=== PATIENT | female | born 1960 ===

== ENCOUNTER 2020-02-24 09:41 | Outpatient (REF) | payer OTHER, SELFPAY ==
[2020-02-24 10:14] LABS: MANUAL DIFF FLAG NO
[2020-02-24 10:25] LABS: Basophils Percent Auto 0.5 % (0-2); Eosinophils Absolute Auto 0.3 X10*3/uL (0.0-0.4); Eosinophils Percent Auto 3.8 % (0-4); Hematocrit 35.4 % (37-47); Hemoglobin 10.7 g/dl (12.0-16.0); Imm Gran Abs Auto 0.02 X10*3/uL (0.00-0.03); Imm Gran Pct Auto 0.2 % (0.0-0.4); Lymphocytes Absolute Auto 3.2 X10*3/uL (1.2-4.9); Lymphocytes Percent Auto 36.7 % (20-40); Mean Corpuscular HGB Conc 30.2 g/dl (31.0-35.0); Mean Corpuscular Hemoglobin 29.4 pg (27.0-33.0); Mean Corpuscular Volume 97.3 fL (80-98); Monocytes Absolute Auto 0.8 X10*3/uL (0.1-1.2); Monocytes Percent Auto 8.7 % (2-11); Neutrophils Absolute Auto 4.4 X10*3/uL (2.0-8.3); Neutrophils Percent Auto 50.1 % (45-73); Platelet Count 203 X10*3/uL (160-400); Red Blood Count 3.64 X10*6/uL (4.20-5.50); Red Cell Distribution Width 13.8 % (11.0-16.0); White Blood Count 8.7 X10*3/uL (4.8-10.8)
[2020-02-24 10:51] LABS: Anion Gap 12 (12-20); Blood Urea Nitrogen 22 mg/dL (9-16); Carbon Dioxide 28 mmol/L (22-29); Chloride 101 mmol/L (96-108); Estimated Glomerular Filt Rate 37; Sodium 136 mmol/L (135-145)
== END 2020-02-24 09:42 | disposition home or self-care (01) ==
LOC: HO.LAB 09:41
PROVIDERS: PCP Internal Medicine; Visit Provider Internal Medicine Hypertension Specialist
DX: N95.0 Postmenopausal bleeding (principal); Z01.419 Encounter for gynecological examination (general) (routine) without abnormal findings
CPT/HCPCS: 36415; 80051; 82565; 84520; 85025; 88305

== ENCOUNTER → 2020-03-24 13:26 | Outpatient (BNVA) | payer OTHER, SELFPAY | PROVIDERS: Referring Provider Internal Medicine; Visit Provider Internal Medicine Cardiovascular Disease | DX: I25.10 Atherosclerotic heart disease of native coronary artery without angina pectoris (principal); I50.9 Heart failure, unspecified; Z79.82 Long term (current) use of aspirin; Z79.899 Other long term (current) drug therapy | CPT/HCPCS: 93005; 99212 ==

== ENCOUNTER → 2020-04-08 14:05 | Outpatient (BNVA) | payer OTHER, SELFPAY | PROVIDERS: PCP Internal Medicine; Visit Provider Obstetrics & Gynecology | DX: Z76.89 Persons encountering health services in other specified circumstances (principal) ==

== ENCOUNTER 2020-06-06 08:52 | Emergency (ER) | payer OTHER, SELFPAY ==
--- NOTE | ~2020-06-06 | CT_ITS ---
EXAMINATION: CT ANGIOGRAM OF THE CHEST WITH AND WITHOUT CONTRAST (CT PULMONARY ANGIOGRAM FOR PE) CLINICAL INFORMATION: Reason for Exam CP/ elevated ddimer COMPARISON: Chest radiograph 06/06/2020 CT angiogram of the chest 12/30/2015 TECHNIQUE: Prior to contrast administration, noncontrast localization images were obtained. Subsequently, multidetector volumetric imaging was performed from the thoracic inlet to below the diaphragms following the administration of 65 mL Omnipaque 350 intravenous contrast. No contrast reaction reported Sagittal, coronal, and MIP oblique sagittal reformatted images were obtained on the CT workstation, uploaded to PACS, and reviewed. This CT examination was performed using dose optimization techniques as appropriate, variously including the following: *Automated exposure control *Adjustment of mA and/or kV according to patient size (this includes techniques or standardized protocols for targeted exams where dose is matched to indication/reason for exam; i.e. extremities or head) *Use of iterative reconstruction technique Total exam dose-length product 363 mGy-cm FINDINGS: QUALITY OF STUDY/CONTRAST BOLUS: Satisfactory. PULMONARY ARTERIES: No central or segmental pulmonary emboli. THORACIC AORTA: No aneurysm or dissection. LUNG: No focal consolidation, nodules or masses. Hazy central groundglass opacity, with sparing in the bilateral lower lobes. There is a small cyst in the peripheral left lower lobe and in the left upper lobe. PLEURA: No pleural effusion or pneumothorax. MEDIASTINUM: Normal heart size. No pericardial effusion. No hilar or mediastinal lymphadenopathy. No evidence of septal bowing or right heart strain. Postsurgical changes from CABG normal caliber of the thoracic aorta. Scattered atherosclerotic calcifications. CHEST WALL/AXILLA: No axillary or internal mammary lymphadenopathy. OSSEOUS STRUCTURES: No acute or suspicious osseous abnormality. UPPER ABDOMEN: Small calcified gallstone. No pericholecystic fluid or gallbladder wall thickening. There are atherosclerotic calcifications of the splenic artery and upper abdominal aorta. No reflux of contrast into the hepatic veins to suggest elevated right heart pressures. CT/CT angio chest PE protocol IMPRESSION: No evidence of pulmonary embolism. Hazy central diffuse groundglass opacity in both lungs, that may represent mild pulmonary edema. VTE: negative
--- NOTE | ~2020-06-06 | XR_ITS ---
EXAMINATION: XR CHEST CLINICAL INFORMATION: Shortness of breath. COMPARISON: 10/26/2019 portable chest. TECHNIQUE: Frontal view of the chest was obtained. FINDINGS: The lungs are clear. Small nodules overlying the right midlung are unchanged. The heart and mediastinal structures are unremarkable. Coarsely calcified nodules overlie the right hilum without interval change. Multilevel sternotomy wires are intact. XR/XR chest 1V IMPRESSION: Stable chest. No acute cardiopulmonary process. Calcified nodules consistent with old granulomatous disease without interval change.
[2020-06-06 08:54] VITALS: BP 204/88; PULSE 66; RESP 20; TEMP 36.6; O2SAT 100; BMI 38.2
--- NOTE | 2020-06-06 08:59 | ED.SOB ---
HPI - SOB/Dyspnea General Chief Complaint: Dyspnea Stated Complaint: DIFF BREATHING Time Seen by Provider: 06/06/20 08:59 Source: patient Mode of arrival: wheelchair Limitations: language barrier (Primarily Afghan-speaking family and sports media used for all interactions) History of Present Illness HPI Narrative: In review this is a 59-year-old female primarily Afghan-speaking the sports media present upon arrival she has a history of arthritis, asthma, coronary artery disease status post coronary angioplasty with stents, chronic kidney disease, congestive heart failure, diabetes, hypercholesteremia, hypertension, obstructive sleep apnea presenting with complaint of ?fluid in the lungs? States she has some shortness of breath which is not new for her however her lower extremity seems to be swelling at night and family did report some complaint of shortness of breath which is denies to me. MD elicited complaint: shortness of breath Timing: intermittent Severity: mild Associated symptoms: denies other symptoms Treatment prior to arrival: none Related Data Home Medications Medication Instructions Recorded Confirmed allopurinol 300 mg tablet 300 mg PO DAILY 02/24/20 04/28/20 amlodipine 10 mg tablet 10 mg PO DAILY 02/24/20 04/28/20 ascorbic acid (vitamin C) 500 mg 500 mg PO DAILY 02/24/20 04/28/20 capsule ascorbic acid (vitamin C) 500 mg PO 02/24/20 04/28/20 tablet blood sugar diagnostic #10 ea 02/24/20 04/28/20 ferrous sulfate 325 mg (65 mg mg PO 02/24/20 04/28/20 iron) tablet insulin regular hum U-500 conc 500 unit SUBCUT 02/24/20 04/28/20 unit/mL subcutaneous soln lisinopril 5 mg tablet 5 mg PO DAILY 02/24/20 04/28/20 rosuvastatin 40 mg tablet 40 mg PO DAILY 02/24/20 04/28/20 spironolactone 25 mg tablet 25 mg PO DAILY 02/24/20 04/28/20 cholecalciferol (vitamin D3) 50 50 mcg PO DAILY 03/24/20 04/28/20 mcg (2,000 unit) capsule metoprolol tartrate 25 mg tablet 25 mg PO BID tab 03/24/20 04/28/20 Previous Rx's Medication Instructions Recorded clopidogrel 75 mg tablet 75 mg PO DAILY #30 tab 02/18/20 compr.stocking,knee,long,large #12 ea 03/25/20 aspirin 81 mg tablet,delayed 81 mg PO DAILY #30 tab 04/09/20 release sennosides 8.6 mg tablet 17.2 mg PO BEDTIME PRN 30 Days #60 04/16/20 tab tobramycin 0.3 % eye drops 1 drp OPHTHALMIC (EYE) Q4H 7 Days 04/28/20 #5 ml amitriptyline 10 mg tablet 10 mg PO BEDTIME #30 tab 05/27/20 furosemide [Lasix] 10 mg PO QAM #7 tab 06/06/20 Allergies Allergy/AdvReac Type Severity Reaction Status Date / Time liraglutide [From VICTOZA] Allergy Mild VOMITING RUBI Verified 04/28/20 12:36 amlodipine Allergy Unknown leg edema Verified 04/28/20 12:36 LACTOSE INTOLERANCE Allergy Mild UPSET Uncoded 04/28/20 12:36 STOMACH milk, lactose Allergy Unknown vomitting Uncoded 04/28/20 12:36 Review of Systems Review of Systems: Constitutional: No Weight loss, No Fever, No Chills, No Night Sweats, No Fatigue, No Malaise ENT/Mouth: No Hearing loss, No Ear Pain, No Nasal Congestion, No Sinus Pain, No Hoarseness, No sore throat, No Rhinorrhea, No Swallowing Difficulty Eyes: No Eye Pain, No Swelling, No Redness, No Foreign Body, No Discharge, No Vision Changes Cardiovascular: No Chest Pain, No Dyspnea on Exertion, No Orthopnea, + Edema, No Palpitations Respiratory: No Cough, No Sputum, No Wheezing, No Smoke Exposure, No Dyspnea Gastrointestinal: No Nausea, No Vomiting, No Diarrhea, No Constipation, No abdominal Pain, No Hematochezia, No Melena Genitourinary: no irregular bleeding, No Dysuria, No Urinary Frequency, No Hematuria, No Urinary Incontinence, No Urgency, No Flank Pain Musculoskeletal: No joint pain, No Myalgias, No Joint Swelling Skin: No Skin Lesions, No rash Neuro: No Weakness, No Numbness, No Paresthesias, No Loss of Consciousness, No Dizziness, No Headache Psych: No Social Issues Heme/Lymph: No Bruising, No Bleeding,No Lymphadenopathy Endocrine: No Polyuria, No Polydipsia, No Temperature Intolerance Yes all other systems are reviewed and are negative FOR[facility]LY [facility] Past Medical History Medical History (Updated 06/06/20 @ 16:02 by Robert Voss NP) Arthritis Asthma CAD (coronary artery disease) CKD (chronic kidney disease) Congestive heart failure Diabetes Gout Hypercholesteremia Hypertension BRYNN (obstructive sleep apnea) Sinusitis Stroke Surgical History H/O right breast biopsy History of bilateral tubal ligation History of cataract surgery History of coronary angioplasty with insertion of stent History of heart surgery Family History Family History Father Stroke Mother Myocardial infarction Paternal Uncle Cancer Social History Social History Alcohol intake: never Smoking Status: Unknown if ever smoked Use of substances other than those prescribed or required for medical reasons: No Advance Directives: No Advance Directives Information Provided: No Sexual orientation: Straight/Heterosexual Gender identity: female Physical Exam Vital Signs: Vital Signs: Last Vital Signs Temp 97.9 F 06/06/20 14:59 Pulse 62 06/06/20 14:59 Resp 16 06/06/20 14:59 BP 147/51 H 06/06/20 14:59 Pulse Ox 98 06/06/20 14:59 Body Mass Index 38.2 Reviewed Const: General: cooperative and healthy appearing; No acute distress or intoxicated appearing Nutritional Appearance: average body habitus Orientation/consciousness: patient oriented x3 HENMT: Head: Yes normal to inspection Ears: hearing grossly normal bilaterally Eyes: General: appearance normal, both eyes and all related structures Visual Reis: normal visual reis by confrontation Neck: Neck: Yes normal visual inspection, No positive Brudzinski's sign, No positive Kernig's sign and No tender Thyroid: Thyroid normal Chest: Chest palpation & inspection: normal inspection of the chest Resp: Effort & Inspection: normal respiratory effort Auscultation: clear to auscultation bilaterally Cardio: Jugular venous distension: no JVD Rhythm: regular rhythm Heart sounds: S1 normal heart sound present and S2 normal heart sound present GI: Inspection: Yes normal to inspection Percussion: Yes normal to percussion Auscultation: normal bowel sounds : General: Yes no CVA tenderness Back/Spine/Pelvis: Back: no CVA tenderness Skin: General skin exam: no rashes or lesions noted Neuro: General: patient oriented x3 Extrem: General: Yes normal to inspection Right lower extremity: edema Details: 1+ Left lower extremity: edema Details: 1+ MDM - SOB/Dyspnea MDM Narrative Medical decision making narrative: Hemodynamically stable, CTA negative for acute PE. No shortness of breath on exertion will give her short course Lasix with close outpatient follow-up for recheck and repeat labs. Would like to go home. Stable for discharge. Differential Diagnosis Differential diagnosis: Likely congestive heart failure and asthma with exacerbation; Unlikely acute exacerbation of chronic obstructive airways disease, pneumonia, pulmonary embolism, pleural effusion, sleep apnea and anemia Medical Records Attestation: I reviewed the patient's medical records. Lab Data Attestation: I reviewed the patient's lab results. Result diagrams: 06/06/20 09:50 06/06/20 09:21 Labs: Lab Results 06/06/20 06/06/20 06/06/20 Range/Units 09:21 09:21 09:21 WBC (4.8-10.8) X10*3/uL RBC (4.20-5.50) X10*6/uL Hgb (12.0-16.0) g/dl Hct (37-47) % MCV (80-98) fL MCH (27.0-33.0) pg MCHC (31.0-35.0) g/dl RDW (11.0-16.0) % Plt Count (160-400) X10*3/uL MPV (9.4-12.3) fL Immature Gran % (Auto) (0.0-0.4) % Neut % (Auto) (45-73) % Lymph % (Auto) (20-40) % Avery % (Auto) (2-11) % Eos % (Auto) (0-4) % Baso % (Auto) (0-2) % Lymph # (Auto) (1.2-4.9) X10*3/uL Avery # (Auto) (0.1-1.2) X10*3/uL Eos # (Auto) (0.0-0.4) X10*3/uL Baso # (Auto) (0.0-0.2) X10*3/uL Abs Immat Gran (auto) (0.00-0.03) X10*3/uL Absolute Neuts (auto) (2.0-8.3) X10*3/uL Absolute Nucleated RBC (0.0-0.012) X10*3/uL Nucleated RBC % (auto) (0.0-0.2) /100WBC PT (10.8-13.0) SEC INR (0.9-1.1) APTT (24.1-38.0) SEC D-Dimer NG/ML Sodium 136 (135-145) mmol/L Potassium 5.1 (3.3-5.1) mmol/L Chloride 101 (96-108) mmol/L Carbon Dioxide 26 (22-29) mmol/L Anion Gap 14 (12-20) BUN 19 H (9-16) mg/dL Creatinine 1.25 (0.5-1.4) mg/dL Estim Creat Clear Calc 52.6 Estimated GFR 44 Random Glucose 178 H (60-115) mg/dL Lactic Acid (0.5-2.0) mmol/L Calcium 9.3 (8.4-10.2) mg/dL Ferritin 317 H (10-250) ng/mL Total Bilirubin 0.2 (0.0-1.0) mg/dL AST 23 (5-31) U/L ALT 25 (0-31) U/L Alkaline Phosphatase 67 (39-117) U/L Lactate Dehydrogenase 181 (122-220) U/L Troponin I High Sens (<3.5-17.0) ng/L C-Reactive Protein 0.58 H (< or = 0.50) mg/dL B-Natriuretic Peptide (<100) pg/mL Total Protein 7.1 (6.5-8.0) g/dL Albumin 3.5 (3.5-5.0) g/dL Procalcitonin ng/mL Urine Color Urine Appearance Urine pH (5.0-8.0) Ur Specific [place] (1.005-1.025) Urine Protein (NEG-TRACE) MG/DL Urine Glucose (UA) (NEG) MG/DL Urine Ketones (NEG) MG/DL Urine Blood (NEG) Urine Nitrite (NEG) Ur Leukocyte Esterase (NEG) Urine RBC (0) /HPF Urine WBC (0-4) /HPF Ur Squamous Epith Cells /LPF Urine Bacteria /LPF Urine Mucus /LPF Coronavirus (PCR) NEGATIVE (Negative) Influenza Type A (PCR) NEGATIVE (Negative) Influenza Type B (PCR) NEGATIVE (Negative) RSV RNA Qual (PCR) NEGATIVE (Negative) 06/06/20 06/06/20 06/06/20 Range/Units 09:22 09:50 09:50 WBC 7.0 (4.8-10.8) X10*3/uL RBC 4.30 (4.20-5.50) X10*6/uL Hgb 13.0 D (12.0-16.0) g/dl Hct 40.4 (37-47) % MCV 94.0 (80-98) fL MCH 30.2 (27.0-33.0) pg MCHC 32.2 (31.0-35.0) g/dl RDW 13.5 (11.0-16.0) % Plt Count 221 (160-400) X10*3/uL MPV 11.4 (9.4-12.3) fL Immature Gran % (Auto) 0.3 (0.0-0.4) % Neut % (Auto) 50.3 (45-73) % Lymph % (Auto) 34.9 (20-40) % Avery % (Auto) 10.0 (2-11) % Eos % (Auto) 3.9 (0-4) % Baso % (Auto) 0.6 (0-2) % Lymph # (Auto) 2.4 (1.2-4.9) X10*3/uL Avery # (Auto) 0.7 (0.1-1.2) X10*3/uL Eos # (Auto) 0.3 (0.0-0.4) X10*3/uL Baso # (Auto) 0.0 (0.0-0.2) X10*3/uL Abs Immat Gran (auto) 0.02 (0.00-0.03) X10*3/uL Absolute Neuts (auto) 3.5 (2.0-8.3) X10*3/uL Absolute Nucleated RBC 0.000 (0.0-0.012) X10*3/uL Nucleated RBC % (auto) 0.0 (0.0-0.2) /100WBC PT (10.8-13.0) SEC INR (0.9-1.1) APTT (24.1-38.0) SEC D-Dimer NG/ML Sodium (135-145) mmol/L Potassium (3.3-5.1) mmol/L Chloride (96-108) mmol/L Carbon Dioxide (22-29) mmol/L Anion Gap (12-20) BUN (9-16) mg/dL Creatinine (0.5-1.4) mg/dL Estim Creat Clear Calc Estimated GFR Random Glucose (60-115) mg/dL Lactic Acid 1.8 (0.5-2.0) mmol/L Calcium (8.4-10.2) mg/dL Ferritin (10-250) ng/mL Total Bilirubin (0.0-1.0) mg/dL AST (5-31) U/L ALT (0-31) U/L Alkaline Phosphatase (39-117) U/L Lactate Dehydrogenase (122-220) U/L Troponin I High Sens 10.8 (<3.5-17.0) ng/L C-Reactive Protein (< or = 0.50) mg/dL B-Natriuretic Peptide 190 H (<100) pg/mL Total Protein (6.5-8.0) g/dL Albumin (3.5-5.0) g/dL Procalcitonin ng/mL Urine Color Urine Appearance Urine pH (5.0-8.0) Ur Specific [place] (1.005-1.025) Urine Protein (NEG-TRACE) MG/DL Urine Glucose (UA) (NEG) MG/DL Urine Ketones (NEG) MG/DL Urine Blood (NEG) Urine Nitrite (NEG) Ur Leukocyte Esterase (NEG) Urine RBC (0) /HPF Urine WBC (0-4) /HPF Ur Squamous Epith Cells /LPF Urine Bacteria /LPF Urine Mucus /LPF Coronavirus (PCR) (Negative) Influenza Type A (PCR) (Negative) Influenza Type B (PCR) (Negative) RSV RNA Qual (PCR) (Negative) 06/06/20 06/06/20 06/06/20 Range/Units 09:50 10:18 12:09 WBC (4.8-10.8) X10*3/uL RBC (4.20-5.50) X10*6/uL Hgb (12.0-16.0) g/dl Hct (37-47) % MCV (80-98) fL MCH (27.0-33.0) pg MCHC (31.0-35.0) g/dl RDW (11.0-16.0) % Plt Count (160-400) X10*3/uL MPV (9.4-12.3) fL Immature Gran % (Auto) (0.0-0.4) % Neut % (Auto) (45-73) % Lymph % (Auto) (20-40) % Avery % (Auto) (2-11) % Eos % (Auto) (0-4) % Baso % (Auto) (0-2) % Lymph # (Auto) (1.2-4.9) X10*3/uL Avery # (Auto) (0.1-1.2) X10*3/uL Eos # (Auto) (0.0-0.4) X10*3/uL Baso # (Auto) (0.0-0.2) X10*3/uL Abs Immat Gran (auto) (0.00-0.03) X10*3/uL Absolute Neuts (auto) (2.0-8.3) X10*3/uL Absolute Nucleated RBC (0.0-0.012) X10*3/uL Nucleated RBC % (auto) (0.0-0.2) /100WBC PT 12.1 (10.8-13.0) SEC INR 1.0 (0.9-1.1) APTT 30.3 (24.1-38.0) SEC D-Dimer 677 NG/ML Sodium (135-145) mmol/L Potassium (3.3-5.1) mmol/L Chloride (96-108) mmol/L Carbon Dioxide (22-29) mmol/L Anion Gap (12-20) BUN (9-16) mg/dL Creatinine (0.5-1.4) mg/dL Estim Creat Clear Calc Estimated GFR Random Glucose (60-115) mg/dL Lactic Acid (0.5-2.0) mmol/L Calcium (8.4-10.2) mg/dL Ferritin (10-250) ng/mL Total Bilirubin (0.0-1.0) mg/dL AST (5-31) U/L ALT (0-31) U/L Alkaline Phosphatase (39-117) U/L Lactate Dehydrogenase (122-220) U/L Troponin I High Sens (<3.5-17.0) ng/L C-Reactive Protein (< or = 0.50) mg/dL B-Natriuretic Peptide (<100) pg/mL Total Protein (6.5-8.0) g/dL Albumin (3.5-5.0) g/dL Procalcitonin 0.03 ng/mL Urine Color YELLOW Urine Appearance CLEAR Urine pH 7.0 (5.0-8.0) Ur Specific [place] 1.015 (1.005-1.025) Urine Protein 1+ H (NEG-TRACE) MG/DL Urine Glucose (UA) NEG (NEG) MG/DL Urine Ketones NEG (NEG) MG/DL Urine Blood NEG (NEG) Urine Nitrite NEG (NEG) Ur Leukocyte Esterase NEG (NEG) Urine RBC 5-9 H (0) /HPF Urine WBC 0-2 (0-4) /HPF Ur Squamous Epith Cells TRACE /LPF Urine Bacteria NONE /LPF Urine Mucus TRACE /LPF Coronavirus (PCR) (Negative) Influenza Type A (PCR) (Negative) Influenza Type B (PCR) (Negative) RSV RNA Qual (PCR) (Negative) 06/06/20 Range/Units 13:05 WBC (4.8-10.8) X10*3/uL RBC (4.20-5.50) X10*6/uL Hgb (12.0-16.0) g/dl Hct (37-47) % MCV (80-98) fL MCH (27.0-33.0) pg MCHC (31.0-35.0) g/dl RDW (11.0-16.0) % Plt Count (160-400) X10*3/uL MPV (9.4-12.3) fL Immature Gran % (Auto) (0.0-0.4) % Neut % (Auto) (45-73) % Lymph % (Auto) (20-40) % Avery % (Auto) (2-11) % Eos % (Auto) (0-4) % Baso % (Auto) (0-2) % Lymph # (Auto) (1.2-4.9) X10*3/uL Avery # (Auto) (0.1-1.2) X10*3/uL Eos # (Auto) (0.0-0.4) X10*3/uL Baso # (Auto) (0.0-0.2) X10*3/uL Abs Immat Gran (auto) (0.00-0.03) X10*3/uL Absolute Neuts (auto) (2.0-8.3) X10*3/uL Absolute Nucleated RBC (0.0-0.012) X10*3/uL Nucleated RBC % (auto) (0.0-0.2) /100WBC PT (10.8-13.0) SEC INR (0.9-1.1) APTT (24.1-38.0) SEC D-Dimer NG/ML Sodium (135-145) mmol/L Potassium (3.3-5.1) mmol/L Chloride (96-108) mmol/L Carbon Dioxide (22-29) mmol/L Anion Gap (12-20) BUN (9-16) mg/dL Creatinine (0.5-1.4) mg/dL Estim Creat Clear Calc Estimated GFR Random Glucose (60-115) mg/dL Lactic Acid (0.5-2.0) mmol/L Calcium (8.4-10.2) mg/dL Ferritin (10-250) ng/mL Total Bilirubin (0.0-1.0) mg/dL AST (5-31) U/L ALT (0-31) U/L Alkaline Phosphatase (39-117) U/L Lactate Dehydrogenase (122-220) U/L Troponin I High Sens 11.7 (<3.5-17.0) ng/L C-Reactive Protein (< or = 0.50) mg/dL B-Natriuretic Peptide (<100) pg/mL Total Protein (6.5-8.0) g/dL Albumin (3.5-5.0) g/dL Procalcitonin ng/mL Urine Color Urine Appearance Urine pH (5.0-8.0) Ur Specific [place] (1.005-1.025) Urine Protein (NEG-TRACE) MG/DL Urine Glucose (UA) (NEG) MG/DL Urine Ketones (NEG) MG/DL Urine Blood (NEG) Urine Nitrite (NEG) Ur Leukocyte Esterase (NEG) Urine RBC (0) /HPF Urine WBC (0-4) /HPF Ur Squamous Epith Cells /LPF Urine Bacteria /LPF Urine Mucus /LPF Coronavirus (PCR) (Negative) Influenza Type A (PCR) (Negative) Influenza Type B (PCR) (Negative) RSV RNA Qual (PCR) (Negative) Imaging Data Chest x-ray: Radiologist's impression: [address] [id number] ReportSigned Patient: Anna Mead LMR#: [id number]: [id number]:[id number]/Sex: 59 / FADM Date: 06/06/20Loc: EDAttending Dr: Ordering Physician: Robert Voss NP Date of Service: 06/06/20 Procedure(s): XR chest 1V Accession Number(s): [id number] cc: Robert Voss 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 COMPARISON: 10/26/2019 portable chest. TECHNIQUE: Frontal view of the chest was obtained. FINDINGS: The lungs are clear. Small nodules overlying the right midlung are unchanged. The heart and mediastinal structures are unremarkable. Coarsely calcified nodules overlie the right hilum without interval change. Multilevel sternotomy wires are intact. XR/XR chest 1V IMPRESSION: Stable chest. No acute cardiopulmonary process. Calcified nodules consistent with old granulomatous disease without interval change. 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 Thank you Prescriptions: New furosemide [Lasix] 20 mg tablet 10 mg PO QAM Qty: 7 RF: 0 No Action clopidogrel 75 mg tablet 75 mg PO DAILY Qty: 30 RF: 11 aspirin 81 mg tablet,delayed release (DR/EC) 81 mg PO DAILY Qty: 30 RF: 2 sennosides [Senna Laxative] 8.6 mg tablet 17.2 mg PO BEDTIME PRN (Reason: constipation) 30 Days Qty: 60 RF: 5 amitriptyline 10 mg tablet 10 mg PO BEDTIME Qty: 30 RF: 3 tobramycin 0.3 % drops 1 drp ophthalmic (eye) Q4H 7 Days Qty: 5 RF: 0 rosuvastatin 40 mg tablet 40 mg PO DAILY RF: 0 lisinopril 5 mg tablet 5 mg PO DAILY RF: 0 allopurinol 300 mg tablet 300 mg PO DAILY RF: 0 ferrous sulfate 325 mg (65 mg iron) tablet PO RF: 0 ascorbic acid (vitamin C) 500 mg tablet PO RF: 0 Humulin R U-500 (Conc) Insulin 500 unit/mL solution subcut RF: 0 spironolactone 25 mg tablet 25 mg PO DAILY RF: 0 (DME) FreeStyle Lite Strips Strip See Rx Instructions ea Not Applicable .MEDSUPPLY Qty: 10 RF: 0 ascorbic acid (vitamin C) 500 mg capsule 500 mg PO DAILY RF: 0 amlodipine 10 mg tablet 10 mg PO DAILY RF: 0 metoprolol tartrate 25 mg tablet 25 mg PO BID RF: 0 (DME) compr.stocking,knee,long,large Misc See Rx Instructions .ROUTE .MEDSUPPLY Qty: 12 RF: 0 cholecalciferol (vitamin D3) 50 mcg (2,000 unit) capsule 50 mcg PO DAILY RF: 0 Referrals: Shara Verdugo MD [Primary Care Provider] - 3 days Interventions: ED Discharge Assessment Last Done: 06/06/20 16:22 Discharge Date/Time: 06/06/20 16:23
--- NOTE | 2020-06-06 09:01 | ECG_ITS ---
Test Reason : DYSPENA Blood Pressure : / mmHG Vent. Rate : 062 BPM Atrial Rate : 062 BPM P-R Int : 184 ms QRS Dur : 130 ms QT Int : 448 ms P-R-T Axes : 043 -31 140 degrees QTc Int : 454 ms Normal sinus rhythm Left axis deviation Left bundle branch block Abnormal ECG When compared with ECG of 26-OCT-2019 17:58, Vent. rate has decreased BY 30 BPM Referred By: Robert Voss Electronically Signed By:EMERSON DANIELS
[2020-06-06 09:57] LABS: Lactic Acid 1.8 mmol/L (0.5-2.0)
[2020-06-06 09:59] LABS: MANUAL DIFF FLAG NO
[2020-06-06 10:01] LABS: Alanine Aminotransferase 25 U/L (0-31); Albumin Level 3.5 g/dL (3.5-5.0); Alkaline Phosphatase 67 U/L (39-117); Anion Gap 14 (12-20); Aspartate Amino Transferase 23 U/L (5-31); Bilirubin Total 0.2 mg/dL (0.0-1.0); Blood Urea Nitrogen 19 mg/dL (9-16); C Reactive Protein 0.58 mg/dL (< or = 0.50); Calcium 9.3 mg/dL (8.4-10.2); Carbon Dioxide 26 mmol/L (22-29); Chloride 101 mmol/L (96-108); Creatinine Clr Calc Pharmacy 52.6; Estimated Glomerular Filt Rate 44; Glucose Random 178 mg/dL (60-115); Lactate Dehydrogenase 181 U/L (122-220); Potassium 5.1 mmol/L (3.3-5.1); Sodium 136 mmol/L (135-145); Total Protein 7.1 g/dL (6.5-8.0)
[2020-06-06 10:02] LABS: Basophils Percent Auto 0.6 % (0-2); Eosinophils Absolute Auto 0.3 X10*3/uL (0.0-0.4); Eosinophils Percent Auto 3.9 % (0-4); Hematocrit 40.4 % (37-47); Imm Gran Abs Auto 0.02 X10*3/uL (0.00-0.03); Imm Gran Pct Auto 0.3 % (0.0-0.4); Lymphocytes Absolute Auto 2.4 X10*3/uL (1.2-4.9); Lymphocytes Percent Auto 34.9 % (20-40); Mean Corpuscular HGB Conc 32.2 g/dl (31.0-35.0); Mean Corpuscular Hemoglobin 30.2 pg (27.0-33.0); Mean Platelet Volume 11.4 fL (9.4-12.3); Monocytes Absolute Auto 0.7 X10*3/uL (0.1-1.2); Neutrophils Absolute Auto 3.5 X10*3/uL (2.0-8.3); Neutrophils Percent Auto 50.3 % (45-73); Platelet Count 221 X10*3/uL (160-400); Red Cell Distribution Width 13.5 % (11.0-16.0)
[2020-06-06 10:09] LABS: Influenza A PCR NEGATIVE (Negative); Influenza B PCR NEGATIVE (Negative); Resp Syncy Virus RNA Qual PCR NEGATIVE (Negative); SARS COV2 PCR INHOUSE NEGATIVE (Negative)
[2020-06-06 10:22] LABS: Ferritin 317 ng/mL (10-250)
[2020-06-06 10:30] LABS: Prothrombin Time 12.1 SEC (10.8-13.0)
[2020-06-06 10:33] LABS: Partial Thromboplastin Time 30.3 SEC (24.1-38.0)
[2020-06-06 10:39] LABS: B Type Natriuretic Peptide 190 pg/mL (<100); Troponin-I High Sensitivity 10.8 ng/L (<3.5-17.0)
[2020-06-06 10:59] LABS: D Dimer 677 NG/ML
[2020-06-06 11:41] VITALS: BP 140/48; PULSE 58; RESP 16; TEMP 36.6; O2SAT 100
[2020-06-06] MEDS: 0.9 % Sodium Chloride 500 ML IV (11:47)
[2020-06-06 12:12] LABS: Procalcitonin 0.03 ng/mL
[2020-06-06 12:21] LABS: Glucose Urine UA NEG (NEG); Leukocyte Esterase Urine NEG (NEG); Nitrite Urine NEG (NEG); Specific Gravity - Urine 1.015 (1.005-1.025); Urine Blood NEG (NEG); Urine Ketones NEG (NEG); Urine Protein 1+ MG/DL (NEG-TRACE)
[2020-06-06 12:23] LABS: Color Urine YELLOW
[2020-06-06 12:24] LABS: Appearance Urine CLEAR
[2020-06-06 12:28] LABS: Mucus Urine TRACE /LPF; Squamous Epithelial Cell Urine TRACE /LPF; WBC Urine 0-2 /HPF (0-4)
[2020-06-06 13:44] LABS: Troponin-I High Sensitivity 11.7 ng/L (<3.5-17.0)
[2020-06-06] MEDS: iohexoL 350 MG/ML 100 ML INFUS..BTL IV (14:41)
[2020-06-06 14:59] VITALS: BP 147/51; PULSE 62; RESP 16; TEMP 36.6; O2SAT 98
== END 2020-06-06 16:23 | disposition home or self-care (01) ==
PROVIDERS: Nurse Practitioner Primary Care; Emergency Provider Emergency Medicine; PCP Internal Medicine
DX: I50.9 Heart failure, unspecified (principal); I13.0 Hypertensive heart and chronic kidney disease with heart failure and stage 1 through stage 4 chronic kidney disease, or unspecified chronic kidney disease; E11.22 Type 2 diabetes mellitus with diabetic chronic kidney disease; N18.9 Chronic kidney disease, unspecified; R60.0 Localized edema; R06.00 Dyspnea, unspecified; R06.02 Shortness of breath; Z79.899 Other long term (current) drug therapy; Z79.4 Long term (current) use of insulin; Z20.822 Contact with and (suspected) exposure to COVID-19
CPT/HCPCS: 0241U; 36415; 71045; 71275; 80053; 81001; 82728; 83605; 83615; 83880; 84145; 84484; 85025; 85379; 85610; 85730; 86140; 87040; 93005; 96360; 99284; Q9967

== ENCOUNTER 2020-07-29 10:07 | Outpatient (REF) | payer OTHER, SELFPAY ==
[2020-07-31 23:31] LABS: HPV mRNA E6/E7 rflx Not Detected (Not Detected)
== END 2020-07-29 10:08 | disposition home or self-care (01) ==
LOC: HO.LAB 10:07
PROVIDERS: PCP Internal Medicine; Visit Provider Obstetrics & Gynecology
DX: Z01.419 Encounter for gynecological examination (general) (routine) without abnormal findings (principal); N95.0 Postmenopausal bleeding
CPT/HCPCS: 36415; 87624; 88142; 99212

== ENCOUNTER 2020-08-03 14:42 | Outpatient (REF) | payer OTHER, SELFPAY ==
--- NOTE | ~2020-08-03 | US_ITS ---
EXAMINATION: ULTRASOUND OF THE PELVIS CLINICAL INFORMATION: Postmenopausal bleeding. COMPARISON: 11/24/2016. TECHNIQUE: Transabdominal and transvaginal pelvic ultrasound. A transvaginal study was performed in addition to the transabdominal study which did not yield an adequate examination of the uterus and ovaries due to superimposed distended gas-filled loops of bowel. FINDINGS: The uterus is normal in size and appearance, measuring 10.5 x 3.9 x 5.4 cm longitudinally, anteroposteriorly and transversely. The endometrial stripe thickness is thick and heterogeneous, measuring 1.9 cm in thickness. Fluid in the cervix. There is a hypoechoic myometrial fibroid at the posterior body measuring 0.7 x 0.6 x 0.7 cm, similar to prior. The ovaries are not seen. No adnexal mass or free fluid collection seen. US/US pelvic complete IMPRESSION: Thick appearance of the endometrium. Small uterine fibroid is similar to prior.
--- NOTE | ~2020-08-03 | US_ITS ---
EXAMINATION: ULTRASOUND OF THE PELVIS CLINICAL INFORMATION: Postmenopausal bleeding. COMPARISON: 11/24/2016. TECHNIQUE: Transabdominal and transvaginal pelvic ultrasound. A transvaginal study was performed in addition to the transabdominal study which did not yield an adequate examination of the uterus and ovaries due to superimposed distended gas-filled loops of bowel. FINDINGS: The uterus is normal in size and appearance, measuring 10.5 x 3.9 x 5.4 cm longitudinally, anteroposteriorly and transversely. The endometrial stripe thickness is thick and heterogeneous, measuring 1.9 cm in thickness. Fluid in the cervix. There is a hypoechoic myometrial fibroid at the posterior body measuring 0.7 x 0.6 x 0.7 cm, similar to prior. The ovaries are not seen. No adnexal mass or free fluid collection seen. US/US transvaginal IMPRESSION: Thick appearance of the endometrium. Small uterine fibroid is similar to prior.
== END 2020-08-03 14:43 | disposition home or self-care (01) ==
LOC: HO.US 14:42
PROVIDERS: PCP Internal Medicine; Visit Provider Obstetrics & Gynecology
DX: N95.0 Postmenopausal bleeding (principal)
CPT/HCPCS: 76830; 76856

== ENCOUNTER → 2020-08-07 10:07 | Outpatient (BNV) | payer OTHER, SELFPAY | PROVIDERS: PCP Internal Medicine; Visit Provider Internal Medicine Medical Oncology | DX: D64.9 Anemia, unspecified (principal) | CPT/HCPCS: 99212; 99213; 99214 ==

== ENCOUNTER → 2020-08-18 14:22 | Outpatient (BNVA) | payer OTHER, SELFPAY | PROVIDERS: Visit Provider Obstetrics & Gynecology | DX: N95.0 Postmenopausal bleeding (principal) | CPT/HCPCS: 99212 ==

== ENCOUNTER 2020-08-21 10:59 | Day surgery (SDC) | payer OTHER, SELFPAY ==
[2020-08-14 14:40] VITALS: BMI 39.4
[2020-08-21] VITALS (7 sets, daily range): BP systolic 97–118; BP diastolic 33–95; PULSE 57–59; RESP 10–18; TEMP 36.1–36.7; O2SAT 97–100
[2020-08-21 12:01] LABS: Glucose, Whole Blood 80 mg/dL (60-115)
--- NOTE | 2020-08-21 12:08 | P.CONAN_ITS ---
[facility] Active Problems Active Problems: All Active Problems (Updated 08/18/20 @ 14:40 by Rhys Weaver MD) Well woman exam (Acute) Postmenopausal bleeding (Acute) Anemia (Acute) Gout (Acute) CAD (coronary artery disease) (Acute) Congestive heart failure (Acute) CKD (chronic kidney disease) (Acute) Hypertension (Acute) Hypercholesteremia (Acute) Diabetes (Acute) Past Medical History Medical History Arthritis Asthma CAD (coronary artery disease) CKD (chronic kidney disease) Congestive heart failure Diabetes Gout Hypercholesteremia Hypertension BRYNN (obstructive sleep apnea) Sinusitis Stroke Family History Family History Father Stroke Mother Myocardial infarction Paternal Uncle Cancer Surgical History Surgical History H/O colonoscopy H/O right breast biopsy History of bilateral tubal ligation History of cataract surgery History of coronary angioplasty with insertion of stent History of esophagogastroduodenoscopy (EGD) History of heart surgery Social History Social History Are you a primary personal care service provider to a significant other at home: No Alcohol intake: never Smoking Status: Never smoker Use of substances other than those prescribed or required for medical reasons: No Advance Directives Information Provided: No Recently lost weight without trying: No Sexual orientation: Straight/Heterosexual Gender identity: female Meds Allergies Allergy/AdvReac Type Severity Reaction Status Date / Time lactose Allergy Intermediate Vomiting Verified 08/18/20 14:31 amlodipine Allergy Mild leg edema Verified 08/18/20 14:31 liraglutide [From VICTOZA] Allergy Mild VOMITING RUBI Verified 08/18/20 14:31 Active Medications: Current Medications Generic Name Dose Route Start Last Admin Trade Name Freq PRN Reason Stop Dose Admin Lactated Ringer's 1,000 mls @ 50 mls/hr 08/20/20 08:15 Lr IV .Q20H [facility] Home Medications Medication Instructions Recorded Confirmed Last Taken Type blood sugar diagnostic #10 ea 02/24/20 08/18/20 Unknown History insulin regular hum U-500 conc 500 5 - 25 unit SUBCUT TIDAC 02/24/20 08/18/20 Unknown History unit/mL subcutaneous soln Exam Exam Date and Time: August 21, 2020 1208 Height,Weight and Vital Signs: Height 5 ft 2 in Weight 97.976 kg Pertinent Lab Results Pertinent Lab Results: Laboratory Tests 08/21/20 11:57 POC Glucose 80 Airway Mallampati Class: II TM Dist: >3cm Neck ROM: Full Assessment and Plan Assessment Anesthesia Assessment: Anesthesia Plan Discussed Final Anesthetic Review NPO: Yes ASA Class: III Final Preanesthetic Review: No Changes in Pt Med Stat, Meds/Allgs Chart Reviewed, Consent Obtained/Reviewed and Anes Risks/Benef Reviewed Patient Risk: Intermediate Procedure Risk: Low Assessment/Block/Sedation in SS: Assess/Block/Sedation-SS Anesthetic Plan Anesthetic Plan: MAC: Disposition: Standard PACU
--- NOTE | 2020-08-21 12:51 | MHC.SHP ---
Pre-Procedural Eval Section A The patient is an INPATIENT: No Changes since office visit: No Cold of Flu in the past 2 weeks, No New Medical Problems, No Changes in Medication and No Patient answered all questions The History & Physical has been completed within 30 days and I have reviewed it.: Yes Section B Chief Complaint: PMB Allergies: Allergies Allergy/AdvReac Type Severity Reaction Status Date / Time lactose Allergy Intermediate Vomiting Verified 08/18/20 14:31 amlodipine Allergy Mild leg edema Verified 08/18/20 14:31 liraglutide [From VICTOZA] Allergy Mild VOMITING RUBI Verified 08/18/20 14:31 Plan Diagnosis/Plan: Unchanged I have reviewed the history and physical and performed a pertinent physical examination on my patient. No changes have occurred unless specified.
[2020-08-21] MEDS: Lactated Ringers 1,000 ML 50 ML IV (13:02)
[2020-08-21] MEDS: Dextrose 5 % 1,000 ML 125 ML IVCONT (13:03)
--- NOTE | 2020-08-21 13:30 | PM.OP ---
Brief Operative Note Date of Service: 08/21/20 Pre-op diagnosis: Post menopausal bleeding Post-op diagnosis: other (same with 3 endometrial polyps) Procedure: Hysteroscopy D&C, Polypectomy Surgeon: Rhys Weaver MD Anesthesia: MAC Estimated blood loss (mL): 0 Pathology: other (Endometrial Scrapping. Polyp) Condition: stable Disposition: PACU
--- NOTE | 2020-08-21 13:32 | W.PM.OPN ---
Operative Note Operative Note Date of Service: 08/21/20 Narrative: Preop Diagnosis: Post menopausal bleeding Operation: Diagnostic Hysteroscopy, Dilataion & Curettage and polypectomy Post Op Diagnosis: 3 Endometrial Polyps QBL: Minimal Anesthesia: MAC Surgeon: Rhys Weaver MD Metal Model Builder: None Complication: None Pathology: Endometrial Scrapings, Endometrial polyps Complication: None Pathology: Endometrial Scrapings, Endometrial polyps Procedure: The patient was put in the dorsal lithotomy position, scrubbed, and draped in the usual manner. A sterile speculum was inserted in the patient's vagina. The anterior lip of the cervix was grasped with a single tooth tenaculum. The cervix was dilated up to 5 mm, then the scope was inserted in the patient's uterus. Inspection revealed 3 endometrial polyps, one at the fundus measuring 1.5 cm, 1 at the left uterine wall measuring 0.5 cm and one at the right cornual area measuring 0.5 cm. The Myosure Reach device was used; it was introduced through the operative channel and polypectomy done with no complications. Sharp curetting was carried on afterwards with minimal endometrial tissues retrieved. At the end of the procedure, all instruments were taken out of the patient uterine and vaginal cavity. The single tooth tenaculum was removed and homeostasis was assured using pressure,. The patient tolerated the procedure well and was transferred to the PACU in a stable condition.
[2020-08-21 13:45] LABS: Glucose, Whole Blood 89 mg/dL (60-115)
== END 2020-08-21 15:30 | disposition home or self-care (01) ==
LOC: HO.SSS 10:59
PROVIDERS: PCP Internal Medicine; Visit Provider Obstetrics & Gynecology
PROC: 0UDB8ZZ Extraction of Endometrium, Via Natural or Artificial Opening Endoscopic (ICD-10-PCS; CPT 58558; principal; 2020-08-21 12:40)
DX: N95.0 Postmenopausal bleeding (principal); N84.0 Polyp of corpus uteri; G47.33 Obstructive sleep apnea (adult) (pediatric); M10.9 Gout, unspecified; J45.909 Unspecified asthma, uncomplicated; E11.22 Type 2 diabetes mellitus with diabetic chronic kidney disease; I13.0 Hypertensive heart and chronic kidney disease with heart failure and stage 1 through stage 4 chronic kidney disease, or unspecified chronic kidney disease; N18.9 Chronic kidney disease, unspecified; I50.9 Heart failure, unspecified; Z79.4 Long term (current) use of insulin; Z79.899 Other long term (current) drug therapy; Z88.8 Allergy status to other drugs, medicaments and biological substances; Z86.73 Personal history of transient ischemic attack (TIA), and cerebral infarction without residual deficits
CPT/HCPCS: 58558; 82947; 88305; J1100; J2250; J2405; J3010

== ENCOUNTER → 2020-09-03 15:50 | Outpatient (BNVA) | payer OTHER, SELFPAY | PROVIDERS: PCP Internal Medicine; Visit Provider Obstetrics & Gynecology ==

== ENCOUNTER → 2020-10-06 12:47 | Outpatient (REF) | payer OTHER, SELFPAY ==
--- NOTE | 2020-10-06 12:50 | CA_ITS ---
Transthoracic Echocardiogram Patient (Last, First, Middle): Anna Mead L Gender: Female Date of : 1960 Age: 60 Procedure Date: 10/06/2020 Procedure Type: Transthoracic Echocardiogram Location: OP Height: 157.48 cm Weight: 95.26 kg BSA: 1.95 m2 Heart Rate: bpm BP: 116 / 69 mmHg Scientific Manager: SAMUEL Referring MD: Brandon Horton MD Superintendent Cemetery: Brandon Horton MD Symptoms: I50.9 - Heart failure, unspecified Study Quality: Fair ECG Rhythm: Sinus Conclusions: - 1. Normal LV systolic function with pseudonormal filling pattern with underlying regional wall motion abnormality as noted before 2. Normal cardiac valvular Doppler 3. Normal RV systolic pressure 4. No pericardial effusion Findings Left Ventricle Normal left ventricular size, thickness, and systolic function. The visually estimated ejection fraction is between 60-65%. Spectral Doppler is indicative of a pseudonormal filling pattern. E/E prime ratio is between 8 and 15 consistent with indeterminate filling pressures. Wall Motion Rest Echo Findings The basal inferior and basal inferoseptal segments are akinetic. All other scored wall segments showed normal motion. Right Ventricle Normal right ventricular cavity size and systolic function. Atria The left atrium is likely dilated. Interatrial shunt cannot be excluded. The right atrium is normal in size. Aortic Valve The aortic valve structure and function is likely normal. There is no aortic valve stenosis. There is no aortic valve regurgitation. Mitral Valve There is mild anterior and posterior mitral leaflet thickening. There is trace mitral valve regurgitation. There is no mitral valve stenosis. Pulmonic Valve The pulmonic valve was not well visualized. Tricuspid Valve Likely normal tricuspid valve structure and function. There is no tricuspid valve regurgitation. The right ventricular systolic pressure is normal. The right ventricular systolic pressure is 25 mmHg. Normal right atrial pressure. There is no evidence of pulmonary hypertension. Great Vessels All visible segments of the aorta are normal in size. The pulmonary artery was not well visualized. Venous The inferior vena cava is normal in size and collapses greater than 50% with inspiration. Pericardium/Pleural There is no evidence of pericardial effusion. Prior Study Comparison No significant change compared to prior study dated: 07/09/2019. Measurements 2D Linear Measurements IVSd: 1.07 0.6-0.9/0.6-1.0 cm LVIDd: 4.24 3.9-5.3/4.2-5.9 cm LVIDd Index: 2.17 2.4-3.2/2.2-3.1 cm/m2 LVIDs: 2.87 2.0-3.6 cm LVPWd: 1.13 0.7-1.1 cm Ao Root: 2.40 2.1-3.5 cm LA Diam: 3.90 2.7-3.8/3.0-4.0 cm LAIDs Index: 2.00 1.5-2.3 cm/m2 LV Mass: 198.50 67-162/88-224 g LV Mass Index: 101.79 43-95/49-115 g/m2 LVOT Diam: 2.00 3.0+(-)1.3 cm 2D Systolic Function EF 4C: 56.20 >55% Mitral Valve MV Pk E: 0.89 MV PK A: 0.39 MV Decel Time: 212.00 E/A: 2.30 E'Lateral: 10.00 E'Medial: 5.44 E/E' Med: 16.40 E/E' Lat: 8.90 PHT: 62.00 MVA PHT: 3.55 Decel Foard: 4.22 Aortic Valve AoV Pk Zen: 1.26 AoV Pk Grad: 6.00 LVOT LVOT Pk Zen: 0.74 LVOT Mn Zen: 0.55 LVOT VTI: 0.21 LVOT Pk Grad: 2.00 LVOT Mn Grad: 1.00 LVOT Diam: 2.00 LVOT Area: 3.14 Diastolic Function MV Pk E: 0.89 MV Pk A: 0.39 E/A: 2.30 E'Medial: 5.44 E/E' Med: 16.40 E' Laterial: 10.00 E/E' Lat: 8.90 Tricuspid Valve TR Pk Zen: 2.36 TR Pk Grad: 22.00 RA Press: 3.00 RVSP: 25.00 Great Vessels Aorta Ao Root-2D: 2.40 2.0-3.7 cm Ao Asc: 3.00 2.1-3.4 cm Updated in Other Vendor System with Status of Final Brandon Horton MD electronically signed on 10/07/2020 8:56:55 AM with status of Final
== END ==
LOC: HO.CARD 12:47
PROVIDERS: Visit Provider Internal Medicine Cardiovascular Disease
DX: I50.9 Heart failure, unspecified (principal); I25.10 Atherosclerotic heart disease of native coronary artery without angina pectoris
CPT/HCPCS: 93306

== ENCOUNTER → 2020-10-13 14:50 | Outpatient (BNVA) | payer OTHER, SELFPAY | PROVIDERS: PCP Internal Medicine; Referring Provider Internal Medicine; Visit Provider Internal Medicine Cardiovascular Disease | DX: I50.22 Chronic systolic (congestive) heart failure (principal); I25.10 Atherosclerotic heart disease of native coronary artery without angina pectoris | CPT/HCPCS: 99212 ==

== ENCOUNTER 2020-10-30 13:35 | Outpatient (REF) | payer OTHER, SELFPAY ==
--- NOTE | ~2020-10-30 | MR_ITS ---
EXAMINATION: MR ANGIOGRAPHY BRAIN WITHOUT CONTRAST CLINICAL INFORMATION: Stroke. COMPARISON: CT head 04/10/2019. CT head 11/17/2013. TECHNIQUE: 3-D [id number] MR angiography of the head with multiple 3-D reformatted images processed on the technologist workstation. FINDINGS: Segmentally diminished flow-related signal intensity with segmental contour irregularity is noted in the left and right cavernous portions of the internal carotid arteries. The comparison exam demonstrates dense segmental cavernous vascular calcifications bilaterally which have a tram-track configuration suggestive of M?nckeberg-type vascular calcifications. No intracranial large vessel occlusions are visualized. No intracranial aneurysms are noted. Partial visualization is made of encephalomalacia within the right cerebellar hemisphere, left cerebral peduncle and left parasagittal genu of the corpus callosum. Segmental contour irregularity and narrowing of the P1 and P2 segments of the right posterior cerebral artery and P2 segment of the left posterior cerebral artery are noted. Mild segmental contour irregularity of the M1 segments of the middle cerebral arteries is present bilaterally. Multiple 3-D reformatted angiographic images demonstrate findings noted on the original axial image data set. MR/MR angio head wo con IMPRESSION: 1. Nonocclusive M?nckeberg-type vascular calcifications of the cavernous portions of the internal carotid arteries resulting in mild-moderate segmental narrowing. These findings may represent the sequela of diabetes mellitus. 2. Findings suspicious for intracranial atherosclerosis. Segmental nonocclusive contour irregularity of the middle cerebral and posterior cerebral arteries is noted, as detailed above, and is suspicious for intracranial atherosclerosis. 3. No large vessel intracranial occlusions. 4. Partial visualization of the previously noted areas of encephalomalacia within the right cerebellar hemisphere, left middle cerebral peduncle and left parasagittal genu of the corpus callosum previously attributed to prior ischemic injuries.
== END 2020-10-30 13:36 | disposition home or self-care (01) ==
LOC: HO.MRI 13:35
PROVIDERS: PCP Internal Medicine; Visit Provider Psychiatry & Neurology Neurology
DX: I63.9 Cerebral infarction, unspecified (principal)
CPT/HCPCS: 70544

== ENCOUNTER 2020-11-16 13:40 | Outpatient (REF) | payer OTHER, SELFPAY ==
--- NOTE | ~2020-11-16 | US_ITS ---
EXAMINATION: US EXTRACRANIAL CAROTID DUPLEX, BILATERAL CLINICAL INFORMATION: Stroke. COMPARISON: None TECHNIQUE: Real-time ultrasound and Doppler techniques (integrating B-mode 2-D vascular images, Doppler spectral analysis and color-flow Doppler imaging) were utilized to interrogate the extracranial carotid arteries, the vertebral arteries and proximal subclavian arteries bilaterally. The degree of stenosis is determined by criteria similar to NASCET. FINDINGS: Right Side: 1. There is soft atherosclerotic plaque seen in the bifurcation/proximal ICA region. 2. The common carotid artery PSV proximally is 87.4 cm/s and distally 71.1 cm/s. 3. The proximal internal carotid artery velocities are 95.9 cm/s systolic and 35.4 cm/s diastolic. 4. The proximal external carotid artery PSV is 270 cm/s. 5. The vertebral artery is not visualized. 6. The subclavian artery waveforms are 202. Left Side: 1. There is soft atherosclerotic plaque seen in the bifurcation/proximal ICA region. 2. The common carotid artery PSV proximally is 104 cm/s and distally 82.7 cm/s. 3. The proximal internal carotid artery velocities are 102 cm/s systolic and 22.8 cm/s diastolic. 4. The proximal external carotid artery PSV is 236 cm/s. 5. The vertebral artery shows 88.0 flow. 6. The subclavian artery waveforms are 196. US/US carotid duplex BI IMPRESSION: 1. RIGHT: 0-49% range stenosis. There is minimal soft plaque in the carotid bulb. 2. LEFT: 0-49% range stenosis. There is minimal soft plaque in the carotid bulb. 3. Antegrade flow seen in left vertebral artery. The right vertebral artery was not seen.
== END 2020-11-16 13:41 | disposition home or self-care (01) ==
LOC: HO.US 13:40
PROVIDERS: Visit Provider Psychiatry & Neurology Neurology
DX: Z86.73 Personal history of transient ischemic attack (TIA), and cerebral infarction without residual deficits (principal)
CPT/HCPCS: 93880

== ENCOUNTER 2021-01-29 09:21 | Outpatient (REF) | payer OTHER, SELFPAY ==
[2021-01-29 10:15] LABS: Hematocrit 36.5 % (37-47); Hemoglobin 11.6 g/dl (12.0-16.0); Mean Corpuscular HGB Conc 31.8 g/dl (31.0-35.0); Mean Corpuscular Hemoglobin 30.4 pg (27.0-33.0); Mean Corpuscular Volume 95.5 fL (80-98); Mean Platelet Volume 11.6 fL (9.4-12.3); Platelet Count 186 X10*3/uL (160-400); Red Blood Count 3.82 X10*6/uL (4.20-5.50); Red Cell Distribution Width 13.9 % (11.0-16.0); White Blood Count 9.3 X10*3/uL (4.8-10.8)
[2021-01-29 10:31] LABS: Anion Gap 12 (12-20); Blood Urea Nitrogen 18 mg/dL (9-16); Calcium 9.9 mg/dL (8.4-10.2); Carbon Dioxide 29 mmol/L (22-29); Chloride 103 mmol/L (96-108); Estimated Glomerular Filt Rate 30; Potassium 4.2 mmol/L (3.3-5.1); Sodium 140 mmol/L (135-145)
== END 2021-01-29 09:22 | disposition home or self-care (01) ==
LOC: HO.10HDL 09:21
PROVIDERS: Visit Provider Internal Medicine Hypertension Specialist
DX: I12.9 Hypertensive chronic kidney disease with stage 1 through stage 4 chronic kidney disease, or unspecified chronic kidney disease (principal); N18.9 Chronic kidney disease, unspecified
CPT/HCPCS: 36415; 80051; 82310; 82565; 84520; 85027

== ENCOUNTER → 2021-04-13 14:37 | Outpatient (BNVA) | payer OTHER, SELFPAY | PROVIDERS: PCP Internal Medicine; Referring Provider Internal Medicine; Visit Provider Internal Medicine Cardiovascular Disease | DX: I25.10 Atherosclerotic heart disease of native coronary artery without angina pectoris (principal); I50.22 Chronic systolic (congestive) heart failure | CPT/HCPCS: 93005; 99212 ==

== ENCOUNTER → 2021-09-09 13:49 | Outpatient (REF) | payer OTHER, SELFPAY ==
--- NOTE | 2021-09-09 13:52 | CA_ITS ---
Transthoracic Echocardiogram Patient (Last, First, Middle): Anna Mead L Gender: Female Date of : 1960 Age: 61 Procedure Date: 09/09/2021 Procedure Type: Transthoracic Echocardiogram Location: OP Height: 157.48 cm Weight: 99.79 kg BSA: 1.99 m2 Heart Rate: bpm BP: 120 / 60 mmHg Dumpman: JENNIFER Referring MD: Brandon Horton MD Nightclub Manager: Brandon Horton MD Symptoms: I50.22 - Chronic systolic (congestive) heart failure Study Quality: Fair ECG Rhythm: Sinus Conclusions: - 1. Technically limited study despite use of contrast agent 2. Normal LV systolic function with pseudonormal filling pattern with underlying regional wall motion abnormality suggestive of coronary artery disease 3. Limited evaluation of cardiac valves with normal cardiac valvular Doppler Findings Procedure Information Contrast agent, definity, is being given per protocol without apparent complications. Left Ventricle Normal left ventricular cavity size. There is mildly increased left ventricular wall thickness. The left ventricular systolic function is normal. The visually estimated ejection fraction is between 60-65%. Spectral Doppler is indicative of a pseudonormal filling pattern. E/E prime ratio is between 8 and 15 consistent with indeterminate filling pressures. Wall Motion Rest Echo Findings The basal inferior segment is akinetic. All other scored wall segments showed normal motion. Right Ventricle The right ventricle was not well visualized. Atria The left atrium is mildly dilated. Interatrial shunt cannot be excluded. The right atrium was not well visualized. Aortic Valve The aortic valve was not well visualized. There is no aortic valve stenosis. There is no aortic valve regurgitation. Mitral Valve The mitral valve was not well visualized. There is no mitral valve stenosis. Pulmonic Valve The pulmonic valve was not well visualized. Tricuspid Valve The tricuspid valve was not well visualized. Tricuspid regurgitation envelope is inadequate for calculation of right ventricular systolic pressure. Great Vessels The aorta was not well visualized. The pulmonary artery was not well visualized. Venous The inferior vena cava was not well visualized. Pericardium/Pleural The pericardium was not well visualized. Prior Study Comparison No significant change compared to prior study dated: 10/06/2020. Measurements 2D Linear Measurements IVSd: 1.25 0.6-0.9/0.6-1.0 cm LVIDd: 4.51 3.9-5.3/4.2-5.9 cm LVIDd Index: 2.27 2.4-3.2/2.2-3.1 cm/m2 LVIDs: 2.56 2.0-3.6 cm LVPWd: 1.05 0.7-1.1 cm LA Diam: 4.50 2.7-3.8/3.0-4.0 cm LAIDs Index: 2.26 1.5-2.3 cm/m2 LV Mass: 233.05 67-162/88-224 g LV Mass Index: 117.11 43-95/49-115 g/m2 LVOT Diam: 2.10 3.0+(-)1.3 cm 2D Systolic Function EF 4C: 79.10 >55% Mitral Valve MV Pk E: 0.97 MV PK A: 0.84 MV Decel Time: 228.00 E/A: 1.20 E'Lateral: 7.62 E'Medial: 5.66 E/E' Med: 17.20 E/E' Lat: 12.80 PHT: 67.00 MVA PHT: 3.28 Decel Gove: 4.27 Aortic Valve AoV Pk Zen: 1.40 AoV Mn Zen: 1.04 AoV VTI: 0.32 AoV Pk Grad: 8.00 Aov Mn Grad: 5.00 MANDEEP Cont.VTI: 1.96 LVOT LVOT Pk Zen: 0.74 LVOT Mn Zen: 0.54 LVOT VTI: 0.18 LVOT Pk Grad: 2.00 LVOT Mn Grad: 1.00 LVOT Diam: 2.10 LVOT Area: 3.46 Diastolic Function MV Pk E: 0.97 MV Pk A: 0.84 E/A: 1.20 E'Medial: 5.66 E/E' Med: 17.20 E' Laterial: 7.62 E/E' Lat: 12.80 Right Ventricle TAPSE (mm): 15.50 TVS' Zen: 8.70 Great Vessels Aorta Sinus of Valsalva: 3.01 2.0-3.5 cm Ao Asc: 3.00 2.1-3.4 cm Pulmonary Veins Pulm Vein S/D 1.00 Pulmonary Valve PV Pk Zen: 0.91 Peak PV Grad: 3.00 Updated in Other Vendor System with Status of Final Brandon Horton MD electronically signed on 09/10/2021 3:34:15 PM with status of Final
== END ==
LOC: HO.CARD 13:49
PROVIDERS: PCP Internal Medicine; Visit Provider Internal Medicine Cardiovascular Disease
DX: I50.22 Chronic systolic (congestive) heart failure (principal)
CPT/HCPCS: 93306; Q9957

== ENCOUNTER 2021-09-29 10:25 | Outpatient (REF) | payer OTHER, SELFPAY ==
[2021-09-29 13:05] LABS: MANUAL DIFF FLAG NO
[2021-09-29 13:07] LABS: Basophils Percent Auto 0.5 % (0-2); Eosinophils Absolute Auto 0.3 X10*3/uL (0.0-0.4); Eosinophils Percent Auto 3.7 % (0-4); Hematocrit 39.1 % (37.0-47.0); Hemoglobin 12.4 g/dl (12.0-16.0); Imm Gran Abs Auto 0.02 X10*3/uL (0.00-0.03); Imm Gran Pct Auto 0.2 % (0.0-0.4); Lymphocytes Absolute Auto 2.7 X10*3/uL (1.2-4.9); Lymphocytes Percent Auto 32.8 % (20-40); Mean Corpuscular HGB Conc 31.7 g/dl (31.0-35.0); Mean Corpuscular Hemoglobin 29.9 pg (27.0-33.0); Mean Corpuscular Volume 94.2 fL (80.0-98.0); Mean Platelet Volume 11.8 fL (9.4-12.3); Monocytes Absolute Auto 0.6 X10*3/uL (0.1-1.2); Monocytes Percent Auto 7.8 % (2-11); Neutrophils Absolute Auto 4.5 x10*3/uL (2.0-8.3); Platelet Count 199 X10*3/uL (160-400); Red Blood Count 4.15 X10*6/uL (4.20-5.50); Red Cell Distribution Width 13.5 % (11.0-16.0); White Blood Count 8.2 X10*3/uL (4.8-10.8)
[2021-09-29 13:24] LABS: Anion Gap 12 (12-20); Blood Urea Nitrogen 25 mg/dL (9-16); Calcium 9.9 mg/dL (8.4-10.2); Carbon Dioxide 28 mmol/L (22-29); Chloride 100 mmol/L (96-108); Estimated Glomerular Filt Rate 29; Glucose Random 265 mg/dL (60-115); Potassium 4.5 mmol/L (3.3-5.1); Sodium 135 mmol/L (135-145)
== END 2021-09-29 10:26 | disposition home or self-care (01) ==
LOC: HO.10HDL 10:25
PROVIDERS: Visit Provider Internal Medicine Hypertension Specialist
DX: D64.9 Anemia, unspecified (principal); E11.9 Type 2 diabetes mellitus without complications; I50.22 Chronic systolic (congestive) heart failure; M10.9 Gout, unspecified; E55.9 Vitamin D deficiency, unspecified; E78.5 Hyperlipidemia, unspecified
CPT/HCPCS: 36415; 80048; 85025

== ENCOUNTER → 2021-10-12 12:43 | Outpatient (BNVA) | payer OTHER, SELFPAY | PROVIDERS: PCP Internal Medicine; Referring Provider Internal Medicine; Visit Provider Internal Medicine Cardiovascular Disease | DX: I25.10 Atherosclerotic heart disease of native coronary artery without angina pectoris (principal); I11.0 Hypertensive heart disease with heart failure; I50.22 Chronic systolic (congestive) heart failure; Z79.82 Long term (current) use of aspirin; Z79.899 Other long term (current) drug therapy | CPT/HCPCS: 99212 ==

== ENCOUNTER 2021-11-17 08:42 | Outpatient (REF) | payer OTHER, SELFPAY ==
[2021-11-17 09:15] LABS: MANUAL DIFF FLAG NO
[2021-11-17 09:46] LABS: Basophils Percent Auto 0.5 % (0-2); Eosinophils Absolute Auto 0.3 X10*3/uL (0.0-0.4); Eosinophils Percent Auto 3.4 % (0-4); Hematocrit 41.1 % (37.0-47.0); Hemoglobin 12.8 g/dl (12.0-16.0); Imm Gran Abs Auto 0.02 X10*3/uL (0.00-0.03); Imm Gran Pct Auto 0.2 % (0.0-0.4); Lymphocytes Absolute Auto 3.3 X10*3/uL (1.2-4.9); Lymphocytes Percent Auto 38.9 % (20-40); Mean Corpuscular HGB Conc 31.1 g/dl (31.0-35.0); Mean Corpuscular Hemoglobin 29.2 pg (27.0-33.0); Mean Corpuscular Volume 93.6 fL (80.0-98.0); Mean Platelet Volume 11.1 fL (9.4-12.3); Monocytes Absolute Auto 0.8 X10*3/uL (0.1-1.2); Neutrophils Absolute Auto 4.1 x10*3/uL (2.0-8.3); Platelet Count 188 X10*3/uL (160-400); Red Blood Count 4.39 X10*6/uL (4.20-5.50); Red Cell Distribution Width 13.7 % (11.0-16.0); White Blood Count 8.5 X10*3/uL (4.8-10.8)
[2021-11-17 10:24] LABS: Alanine Aminotransferase 20 U/L (0-31); Alkaline Phosphatase 60 U/L (39-117); Anion Gap 12 (12-20); Aspartate Amino Transferase 18 U/L (5-31); Bilirubin Total 0.2 mg/dL (0.0-1.0); Blood Urea Nitrogen 33 mg/dL (9-16); Calcium 9.6 mg/dL (8.4-10.2); Carbon Dioxide 30 mmol/L (22-29); Chloride 100 mmol/L (96-108); Cholesterol 109 mg/dL; Estimated Glomerular Filt Rate 25; Glucose Fasting 245 mg/dL (60-99); HDL Cholesterol 23 mg/dL; Iron 81 mcg/dL (30-160); LDL Cholesterol Calculated 44 mg/dl; Percent Iron Saturation 27 % (15-50); Potassium 4.8 mmol/L (3.3-5.1); Sodium 137 mmol/L (135-145); Total Iron Binding Capacity 303 mcg/dL (228-428); Total Protein 7.9 g/dL (6.5-8.0); Triglycerides 212 mg/dL; Unsaturated Iron Binding 222 ug/dL
[2021-11-17 10:45] LABS: Vitamin D 25-OH Total 32.8 ng/mL (>30)
[2021-11-17 11:00] LABS: Creatinine Urine 73.76 mg/dL; Microalbum/Creatinine Ratio Ur 180.3 ug/mg cr
[2021-11-19 16:40] LABS: NT-proBNP 224 pg/mL
== END 2021-11-17 08:43 | disposition home or self-care (01) ==
LOC: HO.LAB 08:42
PROVIDERS: Absent Provider Internal Medicine Cardiovascular Disease; PCP Internal Medicine; Visit Provider Internal Medicine
DX: M10.9 Gout, unspecified (principal); I25.10 Atherosclerotic heart disease of native coronary artery without angina pectoris; E78.00 Pure hypercholesterolemia, unspecified; E55.9 Vitamin D deficiency, unspecified; I50.22 Chronic systolic (congestive) heart failure; E11.9 Type 2 diabetes mellitus without complications; E78.5 Hyperlipidemia, unspecified; D64.9 Anemia, unspecified
CPT/HCPCS: 36415; 80053; 80061; 82043; 82306; 83540; 83880; 84550; 85025

== ENCOUNTER 2021-12-17 12:29 | Outpatient (REF) | payer OTHER, SELFPAY ==
--- NOTE | ~2021-12-17 | MM_ITS ---
EXAMINATION: BONE DENSITOMETRY CLINICAL INDICATION: Menopause. COMPARISON: Baseline BD dated 06/11/2015. TECHNIQUE: Using a [employer]otus DXA System (software version: 13.1) manufactured by [employer], dual-energy x-ray absorptiometry was performed of the lumbar spine and left hip. The images are of good technical quality. Summary results are attached. FINDINGS: AP SPINE L1-L4: Current: BMD 1.223 g/cm2, Z-score 0.9, T-score 0.4, normal, 3.5% decrease from baseline (<5% change is not significant). Baseline: BMD 1.267 g/cm2. LEFT FEMUR, NECK: Current: BMD 0.917 g/cm2, Z-score -0.1, T-score -0.9, normal. Baseline: BMD 0.911 g/cm2. LEFT FEMUR, TOTAL: Current: BMD 0.956 g/cm2, Z-score 0.0, T-score -0.4, normal, 2.1% decrease from baseline (<5% change is not significant). Baseline: BMD 0.977 g/cm2. IDENTIFIED RISK FACTORS: Glucocorticoids (chronic), renal, dementia, secondary osteoporosis, menopause. HISTORY OF FRACTURE: None listed. MEDICATIONS: Calcium, vitamin D. MM/XR DEXA axial skeleton IMPRESSION: 1. DIAGNOSIS: Normal bone density based on the lowest T-score value of -0.9 in the femoral neck applying World Health Organization criteria. 2. 10-YEAR FRACTURE RISK PREDICTION, FRAX: According to the guidelines, FRAX calculation should only be performed on patients in the osteopenia bone density category. Therefore, FRAX was not performed on this patient. 3. Treatment Recommendations: NOF guidelines recommend consideration for treatment in postmenopausal women and men age 50 and older presenting with the following: -A hip or vertebral (clinical or morphometric) fracture. -T-score less than or equal to -2.5 at the femoral neck or spine after appropriate evaluation to exclude secondary causes. -Low bone mass at the hip or spine and a 10-year fracture probability by FRAX of greater than or equal to 3% for hip fracture or greater than or equal to 20% for major osteoporotic fracture based on the [place] adapted WHO algorithm. 4. Other Recommendations: All treatment decisions require clinical judgment and consideration of individual patient factors, including patient preferences, comorbidities, previous drug use, risk factors not captured in the FRAX model (e.g. frailty, falls, vitamin D deficiency, increased bone turnover, interval significant decline in bone density) and possible under or overestimation of fracture risk by FRAX. FUTURE SCAN RECOMMENDATION: People with diagnosed cases of osteoporosis or at high risk for fracture should have regular bone mineral density tests. For patients eligible for Medicare, routine testing is allowed once every 2 years. The testing frequency can be increased to one year for patients who have rapidly progressing disease, those who are receiving or discontinuing medical therapy to restore bone mass, or have additional risk factors.
--- NOTE | ~2021-12-17 | MM_ITS ---
EXAMINATION: MM SCREENING DIGITAL BREAST TOMOSYNTHESIS, BILATERAL CLINICAL INFORMATION: Screening. Asymptomatic. The lifetime risk of breast cancer based on the Tyrer-Cuzick Model is 5%. COMPARISON: Mammography: None. TECHNIQUE: Digital breast tomosynthesis is performed in both the craniocaudal and mediolateral oblique views along with computer-aided detection (CAD). Synthesized 2D images are generated from the tomosynthesis. Bilateral exaggerated craniocaudal views performed. FINDINGS: The breasts are heterogeneously dense, which may obscure small masses (ACR BI-RADS breast composition Category c). About the upper outer aspect of the right breast, there is a small approximately 4 calcifications for which spot magnification views in craniocaudal and 90 degree mediolateral views are recommended. Within the anteroinferior aspect of the left breast, there is a grouping of calcifications for which spot magnification views are recommended. MM/MM tomosynthesis screening BI IMPRESSION: Bilateral breast calcifications for further evaluation with spot magnification views. ASSESSMENT: BI-RADS 0: Incomplete - Need Additional Imaging Evaluation RECOMMENDATION: 1. Additional views of the bilateral breasts. 2. Targeted ultrasound if warranted after review of the additional views. 3. Radiology department staff will contact the patient for additional imaging.
== END 2021-12-17 12:30 | disposition home or self-care (01) ==
LOC: HO.MAMMO 12:29
PROVIDERS: PCP Internal Medicine; Visit Provider Internal Medicine
DX: Z12.31 Encounter for screening mammogram for malignant neoplasm of breast (principal); Z13.820 Encounter for screening for osteoporosis; Z78.0 Asymptomatic menopausal state
CPT/HCPCS: 77063; 77067; 77080

== ENCOUNTER → 2022-01-19 12:12 | Outpatient (BNVA) | payer OTHER, SELFPAY | PROVIDERS: PCP Internal Medicine; Visit Provider Nurse Practitioner | DX: Z01.818 Encounter for other preprocedural examination (principal); N18.4 Chronic kidney disease, stage 4 (severe); I50.22 Chronic systolic (congestive) heart failure; E66.01 Morbid (severe) obesity due to excess calories; Z68.41 Body mass index [BMI] 40.0-44.9, adult; G47.33 Obstructive sleep apnea (adult) (pediatric); I63.512 Cerebral infarction due to unspecified occlusion or stenosis of left middle cerebral artery | CPT/HCPCS: 99202; 99212 ==

== ENCOUNTER 2022-01-21 11:00 | Inpatient (IN) | payer OTHER, SELFPAY ==
--- NOTE | ~2022-01-21 | XR_ITS ---
EXAMINATION: XR FOOT, RIGHT XR FOOT, LEFT CLINICAL INFORMATION: Bilateral wounds, right distal fourth toe, left fifth toe. COMPARISON: Radiographs left ankle 03/27/2017. TECHNIQUE: Each foot is imaged in 3 views. There are a total of 6 views. FINDINGS: Right: There is a dressing overlying the distal right fourth toe. No gas tracking in soft tissues. No acute appearing bony destructive process or periostitis. There is no acute or healing fracture or dislocation. Small posterior and plantar calcaneal spurs are present. Retrocalcaneal recess is preserved. There is dorsal spurring from the midfoot and degenerative changes second through fifth tarsal metatarsal joints. There is erosive arthropathy present with periarticular erosions base first proximal phalanx, second toe interphalangeal joints and fifth toe interphalangeal joints. Left: No gas tracking in soft tissues. No acute bony destructive process or periostitis. No acute or healing fracture or dislocation. Tiny posterior and plantar calcaneal spurs with some mineralization in region of distal Achilles. Retrocalcaneal recess is preserved. Dorsal spurring mid foot. Prominent osteoarthropathy first MTP. Mild degenerative changes interphalangeal joints. No definite periarticular erosions. XR/XR foot RT min 3V IMPRESSION: -No gas tracking in soft tissues or acute bony destructive process. No osteomyelitis demonstrated. 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 -Bilateral calcaneal spurring, arthropathy midfoot with dorsal spurring. Bilateral great toe osteoarthritis.
--- NOTE | ~2022-01-21 | US_ITS ---
EXAMINATION: US VENOUS ULTRASOUND WITH DOPPLER LOWER EXTREMITY, RIGHT CLINICAL INFORMATION: Wound in the fourth toe with changed in coloration. COMPARISON: Radiograph of the right foot 01/21/2022 at 11:46 AM. TECHNIQUE: Ultrasound of the deep veins is performed from the hip to the calf with compression sonography and color and pulse Doppler assessment. Spectral analysis with color-flow imaging is performed. FINDINGS: There is normal venous compression and respiratory variation and augmented flow. The visualized common femoral vein, superficial femoral vein, profunda femoral vein, popliteal vein, and the trifurcation region shows no evidence of deep venous thrombosis. There is no significant popliteal fossa cyst. If the patient's symptoms persist, followup ultrasound in 5 days 7 days might be of value to exclude proximal propagation from a non-visualized calf vein. US/US venous duplex LE RT IMPRESSION: No DVT demonstrated in the right lower extremity.
--- NOTE | ~2022-01-21 | US_ITS ---
EXAMINATION: NONINVASIVE ASSESSMENT OF THE ARTERIES OF THE RIGHT LOWER EXTREMITY Riaz Red MD CLINICAL INFORMATION: Wound to 4th toe with pallor. TECHNIQUE: Right lower extremity duplex ultrasound was performed with velocity measurements and waveform analysis in the common femoral artery, profunda femoris artery, proximal mid and distal superficial femoral arteries, popliteal artery and tibial vessels. This study was performed only at rest. COMPARISON: None. FINDINGS: Velocities in cm/sec and phasicity as well as the presence of plaque are reported below. RIGHT LEG: Marked plaque is noted throughout with triphasic flow seen in the common femoral artery only with monophasic flow present below this level and consistent with severe SFA disease. A component of inflow disease cannot be entirely excluded. Common Femoral: 163 Profunda Femoris: 107 Proximal SFA: 118 Mid SFA: 132 Distal SFA: 60 Popliteal: 80 Posterior tibial: 20 US/US arterial duplex LE RT IMPRESSION: Severe peripheral vascular disease with monophasic waveforms noted throughout with the exception of the common femoral artery where there is normal triphasic flow. Findings are suggestive of severe SFA and tibial runoff disease. Elective CT angiography of the abdomen and pelvis and bilateral lower extremities may be useful for further evaluation.
--- NOTE | ~2022-01-21 | XR_ITS ---
EXAMINATION: XR FOOT, RIGHT XR FOOT, LEFT CLINICAL INFORMATION: Bilateral wounds, right distal fourth toe, left fifth toe. COMPARISON: Radiographs left ankle 03/27/2017. TECHNIQUE: Each foot is imaged in 3 views. There are a total of 6 views. FINDINGS: Right: There is a dressing overlying the distal right fourth toe. No gas tracking in soft tissues. No acute appearing bony destructive process or periostitis. There is no acute or healing fracture or dislocation. Small posterior and plantar calcaneal spurs are present. Retrocalcaneal recess is preserved. There is dorsal spurring from the midfoot and degenerative changes second through fifth tarsal metatarsal joints. There is erosive arthropathy present with periarticular erosions base first proximal phalanx, second toe interphalangeal joints and fifth toe interphalangeal joints. Left: No gas tracking in soft tissues. No acute bony destructive process or periostitis. No acute or healing fracture or dislocation. Tiny posterior and plantar calcaneal spurs with some mineralization in region of distal Achilles. Retrocalcaneal recess is preserved. Dorsal spurring mid foot. Prominent osteoarthropathy first MTP. Mild degenerative changes interphalangeal joints. No definite periarticular erosions. XR/XR foot LT min 3V IMPRESSION: -No gas tracking in soft tissues or acute bony destructive process. No osteomyelitis demonstrated. 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 -Bilateral calcaneal spurring, arthropathy midfoot with dorsal spurring. Bilateral great toe osteoarthritis.
[2022-01-21 11:03] VITALS: BP 128/41; PULSE 63; RESP 18; TEMP 36.6; O2SAT 99; BMI 41.1
--- NOTE | 2022-01-21 15:17 | ED.WOUNDLAC ---
HPI - Wound/Laceration General Chief Complaint: Wound/Laceration Stated Complaint: wound on toe Time Seen by Provider: 01/21/22 14:54 Source: patient and family (Daughter at bedside) Mode of arrival: ambulatory Limitations: language barrier (Vietnamese-speaking) History of Present Illness HPI narrative: 61-year-old female with a past medical history of diabetes with neuropathy, CHF, CKD, CVA, CAD, asthma, arthritis, gout, hypercholesterolemia, hypertension, obstructive sleep apnea, and chronic back pain presenting to the ED with her daughter at bedside with complaints of a wound to her right 4th toe that she believes occurred approximately 1 week ago. Along with a wound to her left foot lateral aspect of the foot that she reports also occurred a few days ago. She reports that her blood glucose level has been in the 200s. She reports that she did follow-up with wound clinic in the past for other wounds and she had some type of gel that she has been applying to the wound although she is unsure she should be using this. She denies any fevers, chills, dizziness, headaches, neck pain/stiffness, chest pain or shortness of breath, recent falls or trauma, abdominal pain, nausea/vomiting/diarrhea constipation, black or bloody stools, lower extremity edema or calf tenderness, recent travel or sick contacts, history of MRSA that she is aware of or any other symptoms complaints or concerns at this time. Onset (ago): week(s) (1) Extremity Location: bilateral: foot Place: home Patient tetanus UTD: Yes Context: accidental Associated symptoms: none Treatments prior to arrival: other (See above) Related Data Home Medications Medication Instructions Recorded Confirmed blood sugar diagnostic #10 ea 02/24/20 12/06/21 insulin regular hum U-500 conc 500 5 - 25 unit subcut TIDAC 02/24/20 12/06/21 unit/mL subcutaneous soln clopidogrel 75 mg tablet (Plavix) 75 mg PO DAILY 08/10/21 12/06/21 dapagliflozin 10 mg tablet 10 mg PO DAILY 10/12/21 12/06/21 (Farxiga) furosemide 40 mg tablet 40 mg PO DAILY 12/06/21 12/06/21 amitriptyline 10 mg tablet 25 mg PO BEDTIME 01/19/22 gabapentin 300 mg capsule 0 mg PO 01/19/22 Previous Rx's Medication Instructions Recorded Shower Chair #1 ea 10/27/20 walker #1 ea 10/27/20 spironolactone 25 mg tablet 25 mg PO DAILY 90 days #90 tabs 02/19/21 allopurinol 300 mg tablet 300 mg PO DAILY #30 tabs 03/18/21 aspirin 81 mg tablet,delayed 81 mg PO DAILY #30 tabs 03/18/21 release cholecalciferol (vitamin D3) 50 50 mcg PO DAILY 90 days #90 caps 03/18/21 mcg (2,000 unit) capsule lisinopril 5 mg tablet 5 mg PO DAILY 90 days #90 tabs 03/18/21 rosuvastatin 40 mg tablet 40 mg PO DAILY 90 days #90 tabs 03/18/21 sennosides 8.6 mg tablet (Senna 17.2 mg PO BEDTIME PRN 06/07/21 Laxative) constipation 30 days #60 tabs ferrous sulfate 325 mg (65 mg 325 mg PO BID #60 tabs 08/10/21 iron) tablet ascorbic acid (vitamin C) 500 mg 500 mg PO DAILY 90 days #90 caps 08/13/21 capsule amlodipine 5 mg tablet 5 mg PO DAILY 90 days #90 tabs 10/25/21 lactulose 10 gram/15 mL oral 10 g (15 mL) PO BEDTIME PRN 10/25/21 solution constipation 30 days #450 mL metoprolol tartrate 25 mg tablet 50 mg PO BID 90 days #360 tabs 12/25/21 Allergies Allergy/AdvReac Type Severity Reaction Status Date / Time lactose Allergy Intermediate Vomiting Verified 01/19/22 12:21 amlodipine Allergy Mild leg edema Verified 01/19/22 12:21 liraglutide [From VICTOZA] Allergy Mild VOMITING RUBI Verified 01/19/22 12:21 Review of Systems Review of Systems: Constitutional : No Weight loss, No Fever, No Chills, No Night Sweats, No Fatigue, No Malaise ENT/Mouth : No Hearing loss, No Ear Pain, No Nasal Congestion, No Sinus Pain, No Hoarseness, No sore throat, No Rhinorrhea, No Swallowing Difficulty Eyes: No Eye Pain, No Swelling, No Redness, No Foreign Body, No Discharge, No Vision Changes Cardiovascular : No Chest Pain, No SOB, No Dyspnea on Exertion, No Orthopnea, No Edema, No Palpitations Respiratory : No Cough, No Sputum, No Wheezing, No Smoke Exposure, No Dyspnea Gastrointestinal : No Nausea, No Vomiting, No Diarrhea, No Constipation, No abdominal Pain, No Hematochezia, No Melena Genitourinary : no irregular bleeding, No Dysuria, No Urinary Frequency, No Hematuria, No Urinary Incontinence, No Urgency, No Flank Pain, No Urinary Flow Changes, No Hesitancy Musculoskeletal : No joint pain, No Myalgias, No Joint Swelling Skin : + wound to left foot and right 4th toe, No additional Skin Lesions, No rash Neuro : No Weakness, No Numbness, No Paresthesias, No Loss of Consciousness, No Dizziness, No Headache Psych : No Anxiety/Panic, No Depression, No SI/HI/AH/VH, No Social Issues, Heme/Lymph: No Bruising, No Bleeding,No Lymphadenopathy Endocrine : No Polyuria, No Polydipsia, No Temperature Intolerance Yes all other systems are reviewed and are negative [facility] Past Medical History Attestation statement: The following information was validated with the patient. Source: old records reviewed, obtained from family and nursing notes reviewed Medical History Arthritis Asthma CAD (coronary artery disease) Cerebrovascular accident (CVA) due to occlusion of left middle cerebral artery CKD (chronic kidney disease) Congestive heart failure Diabetes Gout Hypercholesteremia Hypertension Lumbar degenerative disc disease BRYNN (obstructive sleep apnea) Right hemiparesis Sinusitis Skin lesion Stroke Surgical History H/O colonoscopy H/O right breast biopsy History of bilateral tubal ligation History of cataract surgery History of coronary angioplasty with insertion of stent History of esophagogastroduodenoscopy (EGD) History of heart surgery Family History Family History Father Stroke Mother Myocardial infarction Paternal Uncle Cancer Social History Social History Household Members: Family and Children Housing: House Are you a primary palliative care specialist to a significant other at home: No Do you presently have visiting nurse or other home services: No Alcohol intake: never Patient Tobacco Use Status: Never used Tobacco e-Cigarette/Vaping Use: Never Used Second Hand Smoke Exposure: No Advance Directives: No Advance Directives Information Provided: No service: No Current occupational status: disabled Sexual orientation: Straight/Heterosexual Gender identity: Female Cognitive needs: Yes Hearing needs: No Vision needs: No Physical Exam Vital Signs: Vital Signs: Last Vital Signs Temp 98.6 F 01/21/22 17:57 Pulse 62 01/21/22 17:57 Resp 18 01/21/22 17:57 BP 140/57 H 01/21/22 17:57 Pulse Ox 97 01/21/22 17:57 O2 Del Method 01/21/22 17:57 BMI result Body Mass Index 41.1 vital signs have been reviewed as normal and appeared to be correct. Blood pressure 128/41. Heart rate normal. Respiration rate normal. Temperature normal. Oxygen saturation normal. Appearance: Alert. Oriented X3. No acute distress. Head: Normal external exam. Normocephalic. Atraumatic. Eyes: PERRLA. EOMI. Conjunctiva and sclera normal. Eyelids normal. ENT: Pharynx normal. Uvula midline. Moist mucous membranes. No lesions/ulcerations or masses noted on the tongue. Normal voice. No trismus noted. No drooling noted. No muffled voice noted. Neck: Normal inspection. Neck supple. FROM. No adenopathy. Thyroid Normal. No tracheal deviation noted. No crepitus is noted. No meningeal signs. No neck mass noted. No signs of trauma noted. CVS: Normal heart rate and rhythm. Heart sound normal. Pulses normal throughout. No murmurs/rales/gallops. Respiratory: No respiratory distress. Painless inspiration. Breath sounds normal. No wheezes/rales/rhonchi noted. Chest nontender. No crepitus is noted. No accessory muscle usage noted or decreased air movement noted. Abdomen: Soft and nontender. Nondistended. No guarding. No rigidity. Bowel sounds normal in all 4 quadrants. No distention noted. No organomegaly noted. Back: No CVA tenderness. Full range of motion noted. Nontender. No signs of trauma. Patient neuro intact bilaterally and distally on all 4 extremities. Patient's reflexes intact bilaterally and distally on all 4 extremities. No rashes/lesion/induration/fluctuance or signs of infection noted. Skin: Skin warm and dry. Normal skin color. Normal skin turgor. To the right toe at the distal tip patient has a 1 x 1 cm grade 1 diabetic foot ulcer with mild surrounding erythema. The toe does have decreased capillary refill and appears pallor. No cyanosis noted to toes. There is no streaking/induration/fluctuance. No additional lesions/ulcers/rashes/lacerations at this time. Extremities: No lower extremity edema or calf tenderness noted. Extremities exhibit normal range of motion and nontender. Neuro: Oriented X 3. No motor deficit. No sensory deficit. Reflexes normal. Normal steady gait. No focal neuro deficits noted. CN's II-XII intact bilaterally? Vascular: + radial pulses/+ 2 distal pedal pulses/+2 dorsalis pedis b/l. Normal cap refill. No cyanosis noted to upper extremity nails and lower extremity toes nails. Course Course Course Narrative: 15pm - 61-year-old female with a past medical history of diabetes with neuropathy, CHF, CKD, CVA, CAD, asthma, arthritis, gout, hypercholesterolemia, hypertension, obstructive sleep apnea, and chronic back pain presenting to the ED with her daughter at bedside with complaints of a wound to her right 4th toe that she believes occurred approximately 1 week ago. Along with a wound to her left foot lateral aspect of the foot that she reports also occurred a few days ago. She reports that her blood glucose level has been in the 200s. She reports that she did follow-up with wound clinic in the past for other wounds and she had some type of gel that she has been applying to the wound although she is unsure she should be using this. Bilateral foot x-rays negative for osteomyelitis or gas tracking. Although revealed inflammatory erosive arthropathy with periarticular erosions right 2nd and 5th interphalangeal joints. Along with bilateral calcaneal spurring, arthropathy mid foot with dorsal spurring. Bilateral great toe osteoarthritis. Plan: Labs, blood cultures, lactic acid, venous and arterial ultrasound of right lower extremity and re-evaluate. Reevaluation(s) Reevaluation #1: - labs reviewed patient's ESR 63. Chloride 94. Carbon dioxide 31. BUN 46. Creatinine 2.37. Random glucose 120. Total protein 8.8. Otherwise all other labs are within normal limits. - patient's BUN/creatinine worse when compared to prior. Her baseline creatinine is 1.7 as of July 2020. - venous duplex ultrasound of right lower extremity negative for DVT. Time: 17:12 Reevaluation #2: - arterial ultrasound reveals severe PVD monophasic waveforms noted throughout with the exception of the common femoral artery where there is normal triphasic flow. Findings are suggestive of severe SFA and tibial runoff disease. Elective CT angiography of the abdomen and pelvis and bilateral lower extremities may be useful for further evaluation. - therefore I discussed this case with Dr. Baires and he recommended admitting the patient and he reports that he will do a direct angiogram and he recommended Zosyn and vancomycin at this time. Discussing this case with Dr. Jarrell who will admit. Patient daughter at bedside understand agree this plan. Time: 18:05 Reevaluation #3: - I did debride the patient's wound with a 15 and scalpel and removed some callus/Slough from the epidermis/dermis of the 4th toe distal aspect. I also applied calcium alginate with nonadherent dressing. Status post debridement photo below. Time: 18:33 MDM - Wound/Laceration Medical Records Attestation: I reviewed the patient's medical records. Lab Data Attestation: I reviewed the patient's lab results. Result diagrams: 01/21/22 16:21 01/21/22 16:20 Labs: Lab Results 01/21/22 01/21/22 01/21/22 Range/Units 16:20 16:20 16:21 WBC 9.0 (4.8-10.8) X10*3/uL RBC 4.52 (4.20-5.50) X10*6/uL Hgb 13.4 (12.0-16.0) g/dl Hct 41.8 (37.0-47.0) % MCV 92.5 (80.0-98.0) fL MCH 29.6 (27.0-33.0) pg MCHC 32.1 (31.0-35.0) g/dl RDW 13.8 (11.0-16.0) % Plt Count 211 (160-400) X10*3/uL MPV 11.1 (9.4-12.3) fL Immature Gran % (Auto) 0.2 (0.0-0.4) % Neut % (Auto) 54.8 (45-73) % Lymph % (Auto) 32.0 (20-40) % Garfield % (Auto) 8.2 (2-11) % Eos % (Auto) 4.1 H (0-4) % Baso % (Auto) 0.7 (0-2) % Lymph # (Auto) 2.9 (1.2-4.9) X10*3/uL Garfield # (Auto) 0.7 (0.1-1.2) X10*3/uL Eos # (Auto) 0.4 (0.0-0.4) X10*3/uL Baso # (Auto) 0.1 (0.0-0.2) X10*3/uL Abs Immat Gran (auto) 0.02 (0.00-0.03) X10*3/uL Absolute Neuts (auto) 4.9 (2.0-8.3) x10*3/uL Absolute Nucleated RBC 0.000 (0.0-0.012) X10*3/uL Nucleated RBC % (auto) 0.0 (0.0-0.2) /100WBC ESR (0-20) MM/HR PT (10.0-13.1) SEC INR (0.9-1.1) Sodium 137 (135-145) mmol/L Potassium 4.0 (3.3-5.1) mmol/L Chloride 94 L (96-108) mmol/L Carbon Dioxide 31 H (22-29) mmol/L Anion Gap 16 (12-20) BUN 46 H (9-16) mg/dL Creatinine 2.37 H (0.5-1.4) mg/dL Estim Creat Clear Calc 28.2 Estimated GFR 21 POC Glucose (60-115) mg/dL Random Glucose 120 H (60-115) mg/dL Lactic Acid 1.6 (0.5-2.0) mmol/L Calcium 10.2 D (8.4-10.2) mg/dL Magnesium 2.4 (1.6-2.6) mg/dL Total Bilirubin 0.4 (0.0-1.0) mg/dL AST 18 (5-31) U/L ALT 19 (0-31) U/L Alkaline Phosphatase 57 (39-117) U/L C-Reactive Protein 0.30 (< or = 0.50) mg/dL Total Protein 8.8 H (6.5-8.0) g/dL Albumin 4.3 (3.5-5.0) g/dL 01/21/22 01/21/22 01/21/22 Range/Units 16:21 16:21 18:13 WBC (4.8-10.8) X10*3/uL RBC (4.20-5.50) X10*6/uL Hgb (12.0-16.0) g/dl Hct (37.0-47.0) % MCV (80.0-98.0) fL MCH (27.0-33.0) pg MCHC (31.0-35.0) g/dl RDW (11.0-16.0) % Plt Count (160-400) X10*3/uL MPV (9.4-12.3) fL Immature Gran % (Auto) (0.0-0.4) % Neut % (Auto) (45-73) % Lymph % (Auto) (20-40) % Garfield % (Auto) (2-11) % Eos % (Auto) (0-4) % Baso % (Auto) (0-2) % Lymph # (Auto) (1.2-4.9) X10*3/uL Garfield # (Auto) (0.1-1.2) X10*3/uL Eos # (Auto) (0.0-0.4) X10*3/uL Baso # (Auto) (0.0-0.2) X10*3/uL Abs Immat Gran (auto) (0.00-0.03) X10*3/uL Absolute Neuts (auto) (2.0-8.3) x10*3/uL Absolute Nucleated RBC (0.0-0.012) X10*3/uL Nucleated RBC % (auto) (0.0-0.2) /100WBC ESR 63 H (0-20) MM/HR PT 11.6 (10.0-13.1) SEC INR 1.0 (0.9-1.1) Sodium (135-145) mmol/L Potassium (3.3-5.1) mmol/L Chloride (96-108) mmol/L Carbon Dioxide (22-29) mmol/L Anion Gap (12-20) BUN (9-16) mg/dL Creatinine (0.5-1.4) mg/dL Estim Creat Clear Calc Estimated GFR POC Glucose 70 (60-115) mg/dL Random Glucose (60-115) mg/dL Lactic Acid (0.5-2.0) mmol/L Calcium (8.4-10.2) mg/dL Magnesium (1.6-2.6) mg/dL Total Bilirubin (0.0-1.0) mg/dL AST (5-31) U/L ALT (0-31) U/L Alkaline Phosphatase (39-117) U/L C-Reactive Protein (< or = 0.50) mg/dL Total Protein (6.5-8.0) g/dL Albumin (3.5-5.0) g/dL Imaging Data Bilateral foot x-rays: Attestation: I personally reviewed and interpreted this imaging study as follows: Radiologist's impression: FINDINGS: Right: There is a dressing overlying the distal right fourth toe. No gas tracking in soft tissues. No acute appearing bony destructive process or periostitis. There is no acute or healing fracture or dislocation. Small posterior and plantar calcaneal spurs are present. Retrocalcaneal recess is preserved. There is dorsal spurring from the midfoot and degenerative changes second through fifth tarsal metatarsal joints. There is erosive arthropathy present with periarticular erosions base first proximal phalanx, second toe interphalangeal joints and fifth toe interphalangeal joints. Left: No gas tracking in soft tissues. No acute bony destructive process or periostitis. No acute or healing fracture or dislocation. Tiny posterior and plantar calcaneal spurs with some mineralization in region of distal Achilles. Retrocalcaneal recess is preserved. Dorsal spurring mid foot. Prominent osteoarthropathy first MTP. Mild degenerative changes interphalangeal joints. No definite periarticular erosions. ? XR/XR foot RT min 3V IMPRESSION: -No gas tracking in soft tissues or acute bony destructive process. No osteomyelitis demonstrated. ? 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 ? -Bilateral calcaneal spurring, arthropathy midfoot with dorsal spurring. Bilateral great toe osteoarthritis. Venous duplex ultrasound of right lower extremity: Attestation: I personally reviewed and interpreted this imaging study as follows: Radiologist's impression: FINDINGS: There is normal venous compression and respiratory variation and augmented flow. The visualized common femoral vein, superficial femoral vein, profunda femoral vein, popliteal vein, and the trifurcation region shows no evidence of deep venous thrombosis. ? There is no significant popliteal fossa cyst. If the patient's symptoms persist, followup ultrasound in 5 days 7 days might be of value to exclude proximal propagation from a non-visualized calf vein. US/US venous duplex LE RT IMPRESSION: No DVT demonstrated in the right lower extremity. Right lower extremity arterial ultrasound: Attestation: I personally reviewed and interpreted this imaging study as follows: Radiologist's impression: FINDINGS: Velocities in cm/sec and phasicity as well as the presence of plaque are reported below. RIGHT LEG: Marked plaque is noted throughout with triphasic flow seen in the common femoral artery only with monophasic flow present below this level and? consistent with severe SFA disease. A component of inflow disease cannot be entirely excluded. Common Femoral: 163 Profunda Femoris: 107 Proximal SFA: 118 Mid SFA: 132 Distal SFA: 60 Popliteal: 80 Posterior tibial: 20 US/US arterial duplex LE RT IMPRESSION: Severe peripheral vascular disease with monophasic waveforms noted throughout with the exception of the common femoral artery where there is normal triphasic flow. Findings are suggestive of severe SFA and tibial runoff disease. Elective CT angiography of the abdomen and pelvis and bilateral lower extremities may be useful for further evaluation. Critical Care Time Critical Care Time Critical Care Time: Yes Total Critical Care Time: 60 Attestation: I personally attest to this time spent taking care of the patient Discharge Plan Discharge Clinical Impression: Diabetic foot ulcer, Acute kidney injury superimposed on chronic kidney disease, PVD (peripheral vascular disease) Patient Disposition: Admitted As Inpatient
[2022-01-21 16:27] LABS: MANUAL DIFF FLAG NO
[2022-01-21 16:31] LABS: Basophils Absolute Auto 0.1 X10*3/uL (0.0-0.2); Basophils Percent Auto 0.7 % (0-2); Eosinophils Absolute Auto 0.4 X10*3/uL (0.0-0.4); Eosinophils Percent Auto 4.1 % (0-4); Hematocrit 41.8 % (37.0-47.0); Hemoglobin 13.4 g/dl (12.0-16.0); Imm Gran Abs Auto 0.02 X10*3/uL (0.00-0.03); Imm Gran Pct Auto 0.2 % (0.0-0.4); Lymphocytes Absolute Auto 2.9 X10*3/uL (1.2-4.9); Mean Corpuscular HGB Conc 32.1 g/dl (31.0-35.0); Mean Corpuscular Hemoglobin 29.6 pg (27.0-33.0); Mean Corpuscular Volume 92.5 fL (80.0-98.0); Mean Platelet Volume 11.1 fL (9.4-12.3); Monocytes Absolute Auto 0.7 X10*3/uL (0.1-1.2); Monocytes Percent Auto 8.2 % (2-11); Neutrophils Absolute Auto 4.9 x10*3/uL (2.0-8.3); Neutrophils Percent Auto 54.8 % (45-73); Platelet Count 211 X10*3/uL (160-400); Red Blood Count 4.52 X10*6/uL (4.20-5.50); Red Cell Distribution Width 13.8 % (11.0-16.0)
[2022-01-21] MEDS: 0.9 % Sodium Chloride 1,000 ML 999 ML IVCONT ×2 (16:34→18:44)
--- NOTE | 2022-01-21 16:37 | PC.NURSE ---
patient a/ox4 . IV placed in left AC , fluids administered as ordered . ultrasound at bedside . labs sents . patient c/o nearly no sensation to feet . both sets of big toes tips are white . non blachable . patient aware of plan of care .
[2022-01-21 16:39] LABS: Lactic Acid 1.6 mmol/L (0.5-2.0)
[2022-01-21 16:40] LABS: Prothrombin Time 11.6 SEC (10.0-13.1)
[2022-01-21 16:45] LABS: Alanine Aminotransferase 19 U/L (0-31); Albumin Level 4.3 g/dL (3.5-5.0); Alkaline Phosphatase 57 U/L (39-117); Anion Gap 16 (12-20); Aspartate Amino Transferase 18 U/L (5-31); Bilirubin Total 0.4 mg/dL (0.0-1.0); Blood Urea Nitrogen 46 mg/dL (9-16); Calcium 10.2 mg/dL (8.4-10.2); Carbon Dioxide 31 mmol/L (22-29); Chloride 94 mmol/L (96-108); Creatinine Clr Calc Pharmacy 28.2; Estimated Glomerular Filt Rate 21; Glucose Random 120 mg/dL (60-115); Magnesium 2.4 mg/dL (1.6-2.6); Sodium 137 mmol/L (135-145); Total Protein 8.8 g/dL (6.5-8.0)
[2022-01-21 17:10] LABS: Erythrocyte Sedimentation Rate 63 MM/HR (0-20)
[2022-01-21 17:57] VITALS: BP 140/57; PULSE 62; RESP 18; TEMP 37; O2SAT 97
[2022-01-21 18:18] LABS: Glucose, Whole Blood 70 mg/dL (60-115)
--- NOTE | 2022-01-21 18:42 | PHA.MEDREC ---
Pharmacy Consult ? Medication Reconciliation Pharmacy has completed the medication reconciliation.
[2022-01-21] MEDS: Piperacillin Sodium/Tazobactam 2.25 GM in 0.9 % Sodium Chloride 50 ML IV (18:43)
--- NOTE | 2022-01-21 18:54 | PC.NURSE ---
patient Micronesian speaking only . a/ox4 .Bedside debridement of right 4th toe done by Josiah Painter at bedside . patient tolerated well .IV fluids and Zosyn given as ordered . patient to be admitted . patient aware of plan of care .
[2022-01-21 18:55] LABS: COVID-19 Test Negative (Negative); IDNOW Serial# 16C4AD1C
--- NOTE | 2022-01-21 19:59 | PM.IMHP ---
History of Present Illness Date of Service: 01/21/22 Chief Complaint: Non healing wound with drainage This is a 61-year-old female with pertinent history of insulin-dependent diabetes mellitus, coronary artery disease status post CABG, chronic kidney disease, history of CVA, gout, essential hypertension, obstructive sleep apnea on CPAP who presents to the emergency department for evaluation of nonhealing wound with purulent drainage. History was obtained by the daughter. Patient had trauma to the right toes when she hit her right foot to the door about 1 week ago. Since then, patient has had a wound to the right 4th toe which has not healed. It has also started draining serosanguineous fluid. The daughter mentioned that she brought her mother to the ER due to nonhealing wound and continuous persistent drainage of pus.. No associated pain while ambulation. Patient denies fever, chills, chest discomfort, palpitations, shortness of breath, abdominal pain, extremity pain, changes in urinary or bowel habits. In the ER, duplex arterial scan was concerning for severe peripheral vascular disease. Vascular surgery was consulted who recommended admission with broad-spectrum antibiotics. Review of Systems Review of Systems: All 13 review of systems are negative except as noted in HPI FOR[facility]LY [facility] Medical History Arthritis Asthma CAD (coronary artery disease) Cerebrovascular accident (CVA) due to occlusion of left middle cerebral artery CKD (chronic kidney disease) Congestive heart failure Diabetes Gout Hypercholesteremia Hypertension Lumbar degenerative disc disease BRYNN (obstructive sleep apnea) Right hemiparesis Sinusitis Skin lesion Stroke Functional capacity: uses cane/walker Family History Father Stroke Mother Myocardial infarction Paternal Uncle Cancer Surgical History H/O colonoscopy H/O right breast biopsy History of bilateral tubal ligation History of cataract surgery History of coronary angioplasty with insertion of stent History of esophagogastroduodenoscopy (EGD) History of heart surgery Social History Household Members: Family and Children Housing: House Are you a primary home visit field care manager to a significant other at home: No Do you presently have visiting nurse or other home services: No Alcohol intake: never Patient Tobacco Use Status: Never used Tobacco e-Cigarette/Vaping Use: Never Used Second Hand Smoke Exposure: No Advance Directives: No Advance Directives Information Provided: No service: No Current occupational status: disabled Sexual orientation: Straight/Heterosexual Gender identity: Female Cognitive needs: Yes Hearing needs: No Vision needs: No Meds Allergies Allergy/AdvReac Type Severity Reaction Status Date / Time lactose Allergy Intermediate Vomiting Verified 01/19/22 12:21 amlodipine Allergy Mild leg edema Verified 01/19/22 12:21 liraglutide [From VICTOZA] Allergy Mild VOMITING RUBI Verified 01/19/22 12:21 Active Medications: Current Medications Acetaminophen (Acetaminophen 325 Mg Tablet) 650 mg PO Q6H PRN PRN Reason: Pain, Mild (Pain Scale 1-3) Allopurinol (Allopurinol 300 Mg Tablet) 300 mg PO DAILY DAVID Amitriptyline HCl (Amitriptyline Hcl 25 Mg Tablet) 25 mg PO BEDTIME DAVID Amlodipine Besylate (Amlodipine Besylate 5 Mg Tablet) 5 mg PO DAILY DAVID; Protocol Aspirin (Aspirin Enteric Coated 81 Mg Tablet.Dr) 81 mg PO DAILY DAVID Gabapentin (Gabapentin 300 Mg Capsule) 300 mg PO BID DAVID Vancomycin HCl (Vancomycin/Ns) 2,000 mg in 520 mls @ 260 mls/hr IV ONCE ONE Stop: 01/21/22 20:08 Piperacillin Sod/Tazobactam (Sod 4.5 gm/ Sodium Chloride) 100 mls @ 200 mls/hr IV Q8H DAVID Lactulose (Lactulose 20 Gm/30 Ml Solution) 10 gm PO BEDTIME PRN PRN Reason: constipation Melatonin (Melatonin 3 Mg Tablet) 6 mg PO BEDTIME PRN PRN Reason: Insomnia Metoprolol Tartrate (Metoprolol Tartrate 50 Mg Tablet) 50 mg PO BID DAVID; Protocol Non-Formulary Medication (Dapagliflozin [Farxiga]) 10 mg PO DAILY DAVID Non-Formulary Medication (Ferrous Sulfate) 325 mg PO BID DAVID Non-Formulary Medication (Insulin Regular Hum U-500 Conc) 0 - 450 unit SUBCUT DAILY PRN PRN Reason: for insulin pump Non-Formulary Medication (Rosuvastatin) 40 mg PO DAILY [facility] Ondansetron HCl (Ondansetron Hcl 4 Mg/2 Ml Vial) 4 mg IVPUSH Q8H PRN PRN Reason: Nausea and Vomiting Pharmacy Consult (Consult Rx Perform Med Rec) 1 each MISCELLANE ONCE PRN PRN Reason: Consult order Pharmacy Consult (Consult Rx Vancomycin Dosing) 1 each MISCELLANE DAILY PRN PRN Reason: Consult order Senna (Sennosides 8.6 Mg Tablet) 17.2 mg PO BEDTIME PRN PRN Reason: constipation Sodium Chloride (0.9 % Sodium Chloride Flush 3 Ml Syringe) [address] [facility] Home Medications Medication Instructions Recorded Confirmed Last Taken Type blood sugar diagnostic #10 ea 02/24/20 12/06/21 Unknown History insulin regular hum U-500 conc 500 0 - 450 unit subcut DAILY PRN for 02/24/20 01/21/22 01/21/22 History unit/mL subcutaneous soln insulin pump clopidogrel 75 mg tablet (Plavix) 75 mg PO DAILY 08/10/21 01/21/22 01/21/22 History dapagliflozin 10 mg tablet 10 mg PO DAILY 10/12/21 01/21/22 01/21/22 History ([facility]) furosemide 40 mg tablet 40 mg PO DAILY 12/06/21 01/21/22 01/21/22 History gabapentin 300 mg capsule 300 mg PO BID 01/19/22 01/21/22 01/21/22 History amitriptyline 25 mg tablet 1 tab PO BEDTIME 01/21/22 01/21/22 01/20/22 History Physical Exam Vital Signs and Narrative: Vital Signs: Last Vital Signs Temp 98.6 F 01/21/22 17:57 Pulse 62 01/21/22 17:57 Resp 18 01/21/22 17:57 BP 140/57 H 01/21/22 17:57 Pulse Ox 97 01/21/22 17:57 O2 Del Method 01/21/22 17:57 BMI result Body Mass Index 41.1 Elderly female lying in bed in no distress Neck supple, no JVD Regular rate and rhythm, S1-S2 heard Regular breath sounds bilaterally, no wheezing or crackles appreciated Abdomen soft nontender, no guarding, no rigidity Patient is awake, alert and oriented to self, place, time and person ; no focal motor deficit Extremity: Right 4th toe wound with serosanguineous drainage Psych: Normal mood No pedal edema Results Labs CBC and Chem 7: 01/21/22 16:21 01/21/22 16:20 Labs: Laboratory Results - last 24 hr 01/21/22 01/21/22 01/21/22 16:20 16:20 16:21 MCV 92.5 MCH 29.6 MCHC 32.1 RDW 13.8 Plt Count 211 MPV 11.1 Immature Gran % (Auto) 0.2 Neut % (Auto) 54.8 Lymph % (Auto) 32.0 [place] % (Auto) 8.2 Eos % (Auto) 4.1 H Baso % (Auto) 0.7 Lymph # (Auto) 2.9 [place] # (Auto) 0.7 Eos # (Auto) 0.4 Baso # (Auto) 0.1 Abs Immat Gran (auto) 0.02 Absolute Neuts (auto) 4.9 Absolute Nucleated RBC 0.000 Nucleated RBC % (auto) 0.0 ESR PT INR Anion Gap 16 Estim Creat Clear Calc 28.2 Estimated GFR 21 POC Glucose Random Glucose 120 H Lactic Acid 1.6 Calcium 10.2 D Magnesium 2.4 Total Bilirubin 0.4 AST 18 ALT 19 Alkaline Phosphatase 57 C-Reactive Protein 0.30 Total Protein 8.8 H Albumin 4.3 COVID-19 ([facility]) COVID-Admittedly 01/21/22 01/21/22 01/21/22 16:21 16:21 18:13 MCV MCH MCHC RDW Plt Count MPV Immature Gran % (Auto) Neut % (Auto) Lymph % (Auto) [place] % (Auto) Eos % (Auto) Baso % (Auto) Lymph # (Auto) [place] # (Auto) Eos # (Auto) Baso # (Auto) Abs Immat Gran (auto) Absolute Neuts (auto) Absolute Nucleated RBC Nucleated RBC % (auto) ESR 63 H PT 11.6 INR 1.0 Anion Gap Estim Creat Clear Calc Estimated GFR POC Glucose 70 Random Glucose Lactic Acid Calcium Magnesium Total Bilirubin AST ALT Alkaline Phosphatase C-Reactive Protein Total Protein Albumin COVID-19 ([facility]) COVID-Admittedly 01/21/22 18:27 MCV MCH MCHC RDW Plt Count MPV Immature Gran % (Auto) Neut % (Auto) Lymph % (Auto) [place] % (Auto) Eos % (Auto) Baso % (Auto) Lymph # (Auto) [place] # (Auto) Eos # (Auto) Baso # (Auto) Abs Immat Gran (auto) Absolute Neuts (auto) Absolute Nucleated RBC Nucleated RBC % (auto) ESR PT INR Anion Gap Estim Creat Clear Calc Estimated GFR POC Glucose Random Glucose Lactic Acid Calcium Magnesium Total Bilirubin AST ALT Alkaline Phosphatase C-Reactive Protein Total Protein Albumin COVID-19 ([facility]) Negative COVID-19 Clin Com See Note Imaging Radiologist's Impressions: Impressions Foot X-Ray 01/21/22 11:49 IMPRESSION: -No gas tracking in soft tissues or acute bony destructive process. No osteomyelitis demonstrated. 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 -Bilateral calcaneal spurring, arthropathy midfoot with dorsal spurring. Bilateral great toe osteoarthritis. Foot X-Ray 01/21/22 11:49 IMPRESSION: -No gas tracking in soft tissues or acute bony destructive process. No osteomyelitis demonstrated. 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 -Bilateral calcaneal spurring, arthropathy midfoot with dorsal spurring. Bilateral great toe osteoarthritis. Venous Duplex 01/21/22 15:36 IMPRESSION: No DVT demonstrated in the right lower extremity. Duplex Scan Lower Extremity Artery 01/21/22 16:36 IMPRESSION: Severe peripheral vascular disease with monophasic waveforms noted throughout with the exception of the common femoral artery where there is normal triphasic flow. Findings are suggestive of severe SFA and tibial runoff disease. Elective CT angiography of the abdomen and pelvis and bilateral lower extremities may be useful for further evaluation. Assessment and Plan (1) Diabetic foot ulcer: Status: Acute (2) PVD (peripheral vascular disease): Status: Acute (3) BRYNN (obstructive sleep apnea): Status: Acute (4) CKD (chronic kidney disease) stage 4, GFR 15-29 ml/min: Status: Acute (5) Cerebrovascular accident (CVA) due to occlusion of left middle cerebral artery: Status: Acute (6) CAD (coronary artery disease): Status: Acute (7) Hypertension: Qualifiers: Hypertension type: essential hypertension Qualified Code(s): I10 - Essential (primary) hypertension Status: Acute (8) Diabetes: Qualifiers: Diabetes mellitus complication detail: with polyneuropathy Diabetes mellitus complication status: with neurologic complications Diabetes mellitus mcc insulin use: 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 #. Diabetic nonhealing foot ulcer with concern for infection #. Severe Peripheral vascular disease -will admit patient and continue broad-spectrum antibiotics, vancomycin and Zosyn (renally dosed). Vascular surgery consulted from the ER, appreciate recommendations. Patient is on antiplatelet therapy and statin. Will hold Plavix until surgical evaluation. Will benefit from wound care #. Acute kidney injury on chronic kidney disease stage 4 -likely prerenal in the setting of intravascular volume depletion. Monitor creatinine and urine output with IV crystalloid resuscitation. Avoid nephrotoxins and hold lisinopril, furosemide and spironolactone #. 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 Continue gabapentin #. History of CVA #. CAD status post CABG -on antiplatelet therapy and statin #. Essential hypertension -continue amlodipine and metoprolol, hold lisinopril as above #. Gout -on allopurinol, adjusting dosage to kidney function #. Obstructive sleep apnea -continue CPAP at bedtime DVT prophylaxis: Hold Lovenox until surgical evaluation Diet: Diabetic diet, NPO after midnight Code status: Full code Patient will require two night minimum hospital stay for evaluation and management of severe peripheral vascular disease and nonhealing diabetic foot ulcer with concern for infection. Quality Stroke Does the patient have a stroke diagnosis?: No VTE Prior VTE?: No VTE Risk Level:: Medical - moderate - high VTE Device Contraindication: Treatment Not Indicated VTE Drug Contraindication: Treatment Not Indicated
--- NOTE | 2022-01-21 20:36 | PHA.PROG ---
Admission Date/Time: January 21, 2022 19:48 Indication: skin Weight in k.058 kg Adjusted body weight in Kg: [place] body weight in Kg: Obesity Dosing Indication % IBW: obese model Serum Creatinine - Last 168 Hours 01/21/22 16:20 Creatinine 2.37 H Estimated CrCl and GFR - Last 168 Hours 01/21/22 16:20 Estim Creat Clear Calc 28.2 Estimated GFR 21 Vancomycin Loading Dose: 1500mg X1 Current Vancomycin Dosing Regimen: 500mg Q24 Vancomycin Monitoring using AUC goal of 400 - 600 range with trough as surrogate marker: 421mg/L Date and Time for next Vancomycin Level to be drawn: 01/24/22 @1900 Pharmacist Comments on Vancomycin Plan: Vancomycin dosing will take advantage of Plasmon as a clinical decision support tool that uses Bayesian modeling to calculate individual patient's pharmacokinetic parameters and forecast the patient's drug concentration time course with the target goal AUC 24 range of 400 - 600 mg/L/hr.
[2022-01-21 22:18] LABS: Glucose, Whole Blood 178 mg/dL (60-115)
[2022-01-21 22:37] VITALS: BP 148/54; PULSE 67; RESP 19; TEMP 36.9; O2SAT 97
--- NOTE | 2022-01-22 03:32 | PC.NURSE ---
I assumed care for this patient at 03:00 am. Patient did not receive her bedtime mediations at [facility] [place]. I offered to the patient her bedtime medications to be given at 03:15 am. Patient refused reporting that most of her medications are BID, such as Metoprolol, sliding scale insulin,and Gabapentin and she does not want to take them too close to scheduled morning dose to avoid unwanted adverse effects. Dr. Ornelas notified.
--- NOTE | 2022-01-22 03:39 | PC.NURSE ---
Pt. medications didn't appear on the MAR until they were verified after 3am. At that time medication was not given as it was too close to when the next medication doses were due. Pt. will take at the next scheduled dose in the am.
[2022-01-22 04:05] LABS: Glucose, Whole Blood 173 mg/dL (60-115)
[2022-01-22] MEDS: Insulin Lispro 100 UNIT/ML 3 ML VIAL SUBCUT ×2 (04:13→21:23)
[2022-01-22] MEDS: Piperacillin Sodium/Tazobactam 4.5 GM in 0.9 % Sodium Chloride 100 ML IV ×3 (04:13→21:19)
[2022-01-22 07:31] LABS: MANUAL DIFF FLAG NO
[2022-01-22 07:40] LABS: Basophils Percent Auto 0.5 % (0-2); Eosinophils Absolute Auto 0.3 X10*3/uL (0.0-0.4); Eosinophils Percent Auto 3.8 % (0-4); Hematocrit 37.1 % (37.0-47.0); Hemoglobin 11.6 g/dl (12.0-16.0); Imm Gran Abs Auto 0.02 X10*3/uL (0.00-0.03); Imm Gran Pct Auto 0.2 % (0.0-0.4); Lymphocytes Absolute Auto 2.5 X10*3/uL (1.2-4.9); Lymphocytes Percent Auto 31.3 % (20-40); Mean Corpuscular HGB Conc 31.3 g/dl (31.0-35.0); Mean Corpuscular Hemoglobin 29.4 pg (27.0-33.0); Mean Corpuscular Volume 93.9 fL (80.0-98.0); Mean Platelet Volume 11.2 fL (9.4-12.3); Monocytes Absolute Auto 0.8 X10*3/uL (0.1-1.2); Monocytes Percent Auto 9.7 % (2-11); Neutrophils Absolute Auto 4.4 x10*3/uL (2.0-8.3); Neutrophils Percent Auto 54.5 % (45-73); Platelet Count 170 X10*3/uL (160-400); Red Blood Count 3.95 X10*6/uL (4.20-5.50); Red Cell Distribution Width 13.9 % (11.0-16.0); White Blood Count 8.1 X10*3/uL (4.8-10.8)
[2022-01-22 07:58] LABS: Estimated Average Glucose 214 mg/dL; Hemoglobin A1c % 9.1 %
[2022-01-22 08:03] LABS: Anion Gap 16 (12-20); Blood Urea Nitrogen 39 mg/dL (9-16); Calcium 8.9 mg/dL (8.4-10.2); Carbon Dioxide 27 mmol/L (22-29); Chloride 100 mmol/L (96-108); Creatinine Clr Calc Pharmacy 30.8; Estimated Glomerular Filt Rate 23; Glucose Random 214 mg/dL (60-115); Potassium 4.8 mmol/L (3.3-5.1); Sodium 138 mmol/L (135-145)
[2022-01-22 08:10] VITALS: BP 112/45; PULSE 63; RESP 16; O2SAT 98
[2022-01-22 08:39] LABS: Glucose, Whole Blood 201 mg/dL (60-115)
[2022-01-22] MEDS: amLODIPine Besylate 5 MG TABLET PO (08:53)
[2022-01-22] MEDS: Aspirin Enteric Coated 81 MG TABLET.DR PO (08:53)
[2022-01-22] MEDS: Gabapentin 300 MG CAPSULE PO ×2 (08:53→21:22)
[2022-01-22] MEDS: Ferrous Sulfate 324 MG TABLET.DR PO ×2 (08:54→21:23)
[2022-01-22] MEDS: Atorvastatin Calcium 80 MG TABLET PO (08:54)
[2022-01-22] MEDS: Metoprolol Tartrate 50 MG TABLET PO ×2 (08:54→21:22)
[2022-01-22] MEDS: 0.9 % Sodium Chloride Flush 3 ML SYRINGE IVFLUSH (08:55)
--- NOTE | 2022-01-22 10:15 | HE.PHANOTE ---
re vanco patient got 2 gram vanco load. continue current dose of 500 mg q24h. random put in after 2 does to assess kidney function thanks imtiaz
[2022-01-22] MEDS: Empagliflozin 10 MG TABLET PO (10:50)
[2022-01-22] MEDS: allopurinoL 100 MG TABLET 50 MG PO (10:50)
[2022-01-22 12:44] LABS: Glucose, Whole Blood 214 mg/dL (60-115)
--- NOTE | 2022-01-22 14:25 | HO.PM.IMPN ---
Subjective Subjective Date of Service: 01/22/22 Interval History: Non healing wound with drainage,pad Review of Systems Denies any chest pain or shortness of breath or abdominal pain or cough or phlegm. Does not complain any toe pain No fever Physical Exam Vital Signs: Vital Signs: Last Vital Signs Temp 98.5 F 01/21/22 22:37 Pulse 63 01/22/22 08:10 Resp 16 01/22/22 08:10 BP 112/45 L 01/22/22 08:10 Pulse Ox 98 01/22/22 08:10 O2 Del Method 01/22/22 08:10 BMI result Body Mass Index 41.1 Elderly female lying in bed in no distress Neck supple, no JVD Regular rate and rhythm, S1-S2 heard Regular breath sounds bilaterally, no wheezing or crackles appreciated Abdomen soft nontender, no guarding, no rigidity Patient is awake, alert and oriented to self, place, time and person ; no focal motor deficit Extremity:? Right 4th toe wound with minimum serosanguineous drainage Objective Data Active Medications Acetaminophen (Acetaminophen 325 Mg Tablet) 650 mg PO Q6H PRN PRN Reason: Pain, Mild (Pain Scale 1-3) Allopurinol (Allopurinol 100 Mg Tablet) 50 mg PO Q2D [facility] Last Admin: 01/22/22 10:50 Dose: 50 mg Documented By: TILA Amitriptyline HCl (Amitriptyline Hcl 25 Mg Tablet) 25 mg PO BEDTIME [facility] Last Admin: 01/22/22 03:55 Dose: Not Given Documented By: DOMINIQUE Non-Admin Reason: Patient Refused Amlodipine Besylate (Amlodipine Besylate 5 Mg Tablet) 5 mg PO DAILY [facility]; Protocol Last Admin: 01/22/22 08:53 Dose: 5 mg Documented By: TILA Aspirin (Aspirin Enteric Coated 81 Mg Tablet.) 81 mg PO DAILY [facility] Last Admin: 01/22/22 08:53 Dose: 81 mg Documented By: TILA Atorvastatin Calcium (Atorvastatin Calcium 80 Mg Tablet) 80 mg PO DAILY [facility] Last Admin: 01/22/22 08:54 Dose: 80 mg Documented By: TILA Dextrose (Dextrose 50 % 25 Gm/50 Ml Syringe) 25 gm IVPUSH Q15M PRN; Protocol PRN Reason: per Hypoglycemia Standing Ord. Empagliflozin (Empagliflozin 10 Mg Tablet) 10 mg PO DAILY [facility] Last Admin: 01/22/22 10:50 Dose: 10 mg Documented By: TILA Ferrous Sulfate (Ferrous Sulfate 324 Mg Tablet.) 324 mg PO BID [facility] Last Admin: 01/22/22 08:54 Dose: 324 mg Documented By: TILA Gabapentin (Gabapentin 300 Mg Capsule) 300 mg PO BID [facility] Last Admin: 01/22/22 08:53 Dose: 300 mg Documented By: TILA Glucose (Glucose Gel 15 Gm Gel..Gram.) 15 gm PO Q15M PRN; Protocol PRN Reason: per Hypoglycemia Standing Ord. Piperacillin Sod/Tazobactam (Sod 4.5 gm/ Sodium Chloride) 100 mls @ 200 mls/hr IV Q8H [facility] Last Infusion: 01/22/22 13:32 Dose: 0 mls/hr Documented By: MAHAMED Vancomycin HCl 500 mg/ Sodium (Chloride) 110 mls @ 110 mls/hr IV Q24H [facility] Insulin Human Lispro (Insulin Lispro 100 Unit/Ml 3 Ml Vial) 0 unit SUBCUT QIDACHS [facility]; Protocol Lactulose (Lactulose 20 Gm/30 Ml Solution) 10 gm PO BEDTIME PRN PRN Reason: constipation Melatonin (Melatonin 3 Mg Tablet) 6 mg PO BEDTIME PRN PRN Reason: Insomnia Metoprolol Tartrate (Metoprolol Tartrate 50 Mg Tablet) 50 mg PO BID [facility]; Protocol Last Admin: 01/22/22 08:54 Dose: 50 mg Documented By: TILA Ondansetron HCl (Ondansetron Hcl 4 Mg/2 Ml Vial) 4 mg IVPUSH Q8H PRN PRN Reason: Nausea and Vomiting Pharmacy Consult (Consult Rx Perform Med Rec) 1 each MISCELLANE ONCE PRN PRN Reason: Consult order Pharmacy Consult (Consult Rx Vancomycin Dosing) 1 each MISCELLANE DAILY PRN PRN Reason: Consult order Senna (Sennosides 8.6 Mg Tablet) 17.2 mg PO BEDTIME PRN PRN Reason: constipation Sodium Chloride (0.9 % Sodium Chloride Flush 3 Ml Syringe) 3 ml IVFLUSH QSHIFT [facility] Last Admin: 01/22/22 08:55 Dose: 3 ml Documented By: TILA Labs CBC & Chem 7: 01/22/22 07:11 01/22/22 07:11 Labs: Laboratory Results - last 24 hr 01/21/22 01/21/22 01/21/22 16:20 16:20 16:21 MCV 92.5 MCH 29.6 MCHC 32.1 RDW 13.8 Plt Count 211 MPV 11.1 Immature Gran % (Auto) 0.2 Neut % (Auto) 54.8 Lymph % (Auto) 32.0 [place] % (Auto) 8.2 Eos % (Auto) 4.1 H Baso % (Auto) 0.7 Lymph # (Auto) 2.9 [place] # (Auto) 0.7 Eos # (Auto) 0.4 Baso # (Auto) 0.1 Abs Immat Gran (auto) 0.02 Absolute Neuts (auto) 4.9 Absolute Nucleated RBC 0.000 Nucleated RBC % (auto) 0.0 ESR PT INR Anion Gap 16 Estim Creat Clear Calc 28.2 Estimated GFR 21 POC Glucose Random Glucose 120 H Estimat Average Glucose Hemoglobin A1c % Lactic Acid 1.6 Calcium 10.2 D Magnesium 2.4 Total Bilirubin 0.4 AST 18 ALT 19 Alkaline Phosphatase 57 C-Reactive Protein 0.30 Total Protein 8.8 H Albumin 4.3 COVID-19 ([facility]) COVID-Silversky 01/21/22 01/21/22 01/21/22 16:21 16:21 18:13 MCV MCH MCHC RDW Plt Count MPV Immature Gran % (Auto) Neut % (Auto) Lymph % (Auto) [place] % (Auto) Eos % (Auto) Baso % (Auto) Lymph # (Auto) [place] # (Auto) Eos # (Auto) Baso # (Auto) Abs Immat Gran (auto) Absolute Neuts (auto) Absolute Nucleated RBC Nucleated RBC % (auto) ESR 63 H PT 11.6 INR 1.0 Anion Gap Estim Creat Clear Calc Estimated GFR POC Glucose 70 Random Glucose Estimat Average Glucose Hemoglobin A1c % Lactic Acid Calcium Magnesium Total Bilirubin AST ALT Alkaline Phosphatase C-Reactive Protein Total Protein Albumin COVID-19 ([facility]) COVID-19 Stylitics 01/21/22 01/21/22 01/21/22 18:27 21:25 22:11 MCV MCH MCHC RDW Plt Count MPV Immature Gran % (Auto) Neut % (Auto) Lymph % (Auto) [place] % (Auto) Eos % (Auto) Baso % (Auto) Lymph # (Auto) [place] # (Auto) Eos # (Auto) Baso # (Auto) Abs Immat Gran (auto) Absolute Neuts (auto) Absolute Nucleated RBC Nucleated RBC % (auto) ESR PT INR Anion Gap Estim Creat Clear Calc Estimated GFR POC Glucose 178 H Random Glucose Estimat Average Glucose 214 Hemoglobin A1c % 9.1 Lactic Acid Calcium Magnesium Total Bilirubin AST ALT Alkaline Phosphatase C-Reactive Protein Total Protein Albumin COVID-19 ([facility]) Negative COVID-19 Clin Com See Note 01/22/22 01/22/22 01/22/22 04:01 07:11 07:11 MCV 93.9 MCH 29.4 MCHC 31.3 RDW 13.9 Plt Count 170 MPV 11.2 Immature Gran % (Auto) 0.2 Neut % (Auto) 54.5 Lymph % (Auto) 31.3 [place] % (Auto) 9.7 Eos % (Auto) 3.8 Baso % (Auto) 0.5 Lymph # (Auto) 2.5 [place] # (Auto) 0.8 Eos # (Auto) 0.3 Baso # (Auto) 0.0 Abs Immat Gran (auto) 0.02 Absolute Neuts (auto) 4.4 Absolute Nucleated RBC 0.000 Nucleated RBC % (auto) 0.0 ESR PT INR Anion Gap 16 Estim Creat Clear Calc 30.8 Estimated GFR 23 POC Glucose 173 H Random Glucose 214 H Estimat Average Glucose Hemoglobin A1c % Lactic Acid Calcium 8.9 D Magnesium Total Bilirubin AST ALT Alkaline Phosphatase C-Reactive Protein Total Protein Albumin COVID-19 ([facility]) COVID-19 Clin Com 01/22/22 01/22/22 08:34 12:40 MCV MCH MCHC RDW Plt Count MPV Immature Gran % (Auto) Neut % (Auto) Lymph % (Auto) [place] % (Auto) Eos % (Auto) Baso % (Auto) Lymph # (Auto) [place] # (Auto) Eos # (Auto) Baso # (Auto) Abs Immat Gran (auto) Absolute Neuts (auto) Absolute Nucleated RBC Nucleated RBC % (auto) ESR PT INR Anion Gap Estim Creat Clear Calc Estimated GFR POC Glucose 201 H 214 H Random Glucose Estimat Average Glucose Hemoglobin A1c % Lactic Acid Calcium Magnesium Total Bilirubin AST ALT Alkaline Phosphatase C-Reactive Protein Total Protein Albumin COVID-19 ([facility]) COVID-19 Clin Com Assessment and Plan (1) Diabetic foot ulcer: Status: Acute (2) Acute kidney injury superimposed on chronic kidney disease: Status: Acute (3) PVD (peripheral vascular disease): Status: Acute (4) CKD (chronic kidney disease) stage 4, GFR 15-29 ml/min: Status: Acute Plan 61-year-old female with pertinent history of insulin-dependent diabetes mellitus, coronary artery disease status post CABG, chronic kidney disease, history of CVA, gout, essential hypertension, obstructive sleep apnea on CPAP who presents to the emergency department for evaluation of nonhealing wound with purulent drainage. #.? Diabetic nonhealing foot ulcer with concern for infection #.? Severe Peripheral vascular disease -will admit patient and continue broad-spectrum antibiotics, vancomycin and Zosyn (renally dosed).? Vascular surgery consulted from the ER, appreciate recommendations.? Patient is on antiplatelet therapy and statin.? Will hold Plavix until surgical evaluation.? continue wound care #.? Acute kidney injury on chronic kidney disease stage 4 -likely prerenal in the setting of intravascular volume depletion.? Monitor creatinine and urine output with IV crystalloid resuscitation-sheron improving Avoid nephrotoxins and hold lisinopril, furosemide and spironolactone #.? 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 Continue gabapentin #.? History of CVA #.? CAD status post CABG -on antiplatelet therapy and statin #.? Essential hypertension -continue amlodipine and metoprolol, hold lisinopril as above #.? Gout -on allopurinol, adjusting dosage to kidney function #.? Obstructive sleep apnea -continue CPAP at bedtime DVT prophylaxis:?s/c lovenox Diet:? Diabetic diet inaptient need:sheron on ckd ,severe pad and Diabetic nonhealing foot ulcer with concern for infection need iv antibiotics and possible vascular intervention. Quality Stroke Does the patient have a stroke diagnosis?: No VTE Prior VTE?: No VTE Risk Level:: Medical - moderate - high VTE Device Contraindication: Treatment Not Indicated VTE Drug Contraindication: Treatment Not Indicated
[2022-01-22 15:30] VITALS: BP 93/38; PULSE 64; RESP 18; TEMP 36.8; O2SAT 98
[2022-01-22] MEDS: Lactated Ringers 1,000 ML 80 ML IVCONT (15:39)
[2022-01-22] MEDS: Enoxaparin Sodium 30 MG/0.3 ML SYRINGE SUBCUT (15:39)
--- NOTE | 2022-01-22 15:47 | PC.NURSE ---
assumed care of pt at 1500, pt a&ox3, hypotensive, other vss, LR running at 80ml/hr, medicated per provider order. no new orders at this time.
[2022-01-22 18:46] LABS: Glucose, Whole Blood 289 mg/dL (60-115)
[2022-01-22 21:19] LABS: Glucose, Whole Blood 342 mg/dL (60-115)
[2022-01-22] MEDS: Amitriptyline HCl 25 MG TABLET PO (21:22)
--- NOTE | 2022-01-22 21:25 | PC.NURSE ---
pt drowsy, oriented x3, medicated per provider order, 1630 insulin held due to late dinner and nurse with another pt, no new orders at this time.
[2022-01-22 21:43] VITALS: BP 111/42; PULSE 65; RESP 14; TEMP 36.8; O2SAT 95
--- NOTE | 2022-01-22 21:43 | PC.NURSE ---
RN-RN report called into [facility].
[2022-01-22] MEDS: vancomycin HCL 500 MG in 0.9 % Sodium Chloride 100 ML 110 MG IV (21:48)
[2022-01-22 22:52] VITALS: BMI 41.4
[2022-01-22 23:27] VITALS: BP 132/60; PULSE 66; RESP 16; TEMP 36.3; O2SAT 98
[2022-01-23] VITALS (7 sets, daily range): BP systolic 119–137; BP diastolic 28–77; PULSE 54–63; RESP 12–18; TEMP 36.1–37; O2SAT 93–97
[2022-01-23] MEDS: Lactated Ringers 1,000 ML 80 ML IVCONT (05:46)
[2022-01-23] MEDS: Piperacillin Sodium/Tazobactam 4.5 GM in 0.9 % Sodium Chloride 100 ML IV ×3 (05:50→19:58)
[2022-01-23 07:10] LABS: Glucose, Whole Blood 276 mg/dL (60-115)
[2022-01-23 07:40] LABS: Creatinine Clr Calc Pharmacy 29.7; Estimated Glomerular Filt Rate 22
[2022-01-23] MEDS: Ferrous Sulfate 324 MG TABLET.DR PO ×2 (08:13→20:39)
[2022-01-23] MEDS: Insulin Lispro 100 UNIT/ML 3 ML VIAL SUBCUT ×4 (08:13→20:39)
[2022-01-23] MEDS: Gabapentin 300 MG CAPSULE PO ×2 (08:13→20:39)
[2022-01-23] MEDS: Atorvastatin Calcium 80 MG TABLET PO (08:13)
[2022-01-23] MEDS: Empagliflozin 10 MG TABLET PO (08:14)
[2022-01-23] MEDS: amLODIPine Besylate 5 MG TABLET PO (08:14)
[2022-01-23] MEDS: Aspirin Enteric Coated 81 MG TABLET.DR PO (08:14)
[2022-01-23] MEDS: Metoprolol Tartrate 50 MG TABLET PO ×2 (08:14→20:39)
[2022-01-23 11:33] LABS: Glucose, Whole Blood 276 mg/dL (60-115)
--- NOTE | 2022-01-23 12:04 | P.PNIM_ITS ---
Subjective Subjective Date of Service: 01/23/22 Interval History: Non healing wound with drainage,pad Review of Systems No new overnight event, No fevers Denies any abdominal pain or shortness of breath or chest pain or or cough Physical Exam Vital Signs: Vital Signs: Last Vital Signs Temp 97.9 F 01/23/22 11:18 Pulse 56 01/23/22 11:18 Resp 18 01/23/22 11:18 BP 127/28 L 01/23/22 11:18 Pulse Ox 97 01/23/22 11:18 O2 Del Method 01/23/22 11:18 BMI result Body Mass Index 41.4 Elderly female lying in bed in no distress,pleasant Neck supple, no JVD Regular rate and rhythm, S1-S2 heard Regular breath sounds bilaterally, no wheezing or crackles appreciated Abdomen soft nontender, no guarding, no rigidity Patient is awake, alert ; no focal motor deficit Extremity:? Right 4th toe wound with minimum serosanguineous drainage Objective Data Active Medications Acetaminophen (Acetaminophen 325 Mg Tablet) 650 mg PO Q6H PRN PRN Reason: Pain, Mild (Pain Scale 1-3) Allopurinol (Allopurinol 100 Mg Tablet) 50 mg PO Q2D [facility] Last Admin: 01/22/22 10:50 Dose: 50 mg Documented By: TILA Amitriptyline HCl (Amitriptyline Hcl 25 Mg Tablet) 25 mg PO BEDTIME [facility] Last Admin: 01/22/22 21:22 Dose: 25 mg Documented By: DIANA Amlodipine Besylate (Amlodipine Besylate 5 Mg Tablet) 5 mg PO DAILY [facility]; Protocol Last Admin: 01/23/22 08:14 Dose: 5 mg Documented By: LUDWIG Aspirin (Aspirin Enteric Coated 81 Mg Tablet.) 81 mg PO DAILY [facility] Last Admin: 01/23/22 08:14 Dose: 81 mg Documented By: LUDWIG Atorvastatin Calcium (Atorvastatin Calcium 80 Mg Tablet) 80 mg PO DAILY [facility] Last Admin: 01/23/22 08:13 Dose: 80 mg Documented By: LUDWIG Dextrose (Dextrose 50 % 25 Gm/50 Ml Syringe) 25 gm IVPUSH Q15M PRN; Protocol PRN Reason: per Hypoglycemia Standing Ord. Empagliflozin (Empagliflozin 10 Mg Tablet) 10 mg PO DAILY [facility] Last Admin: 01/23/22 08:14 Dose: 10 mg Documented By: LUDWIG Enoxaparin Sodium (Enoxaparin Sodium 30 Mg/0.3 Ml Syringe) 30 mg SUBCUT Q24H [facility] Last Admin: 01/22/22 15:39 Dose: 30 mg Documented By: BRAULIODENGerard Ferrous Sulfate (Ferrous Sulfate 324 Mg Tablet.Dr) 324 mg PO BID [facility] Last Admin: 01/23/22 08:13 Dose: 324 mg Documented By: LUDWIG Gabapentin (Gabapentin 300 Mg Capsule) 300 mg PO BID [facility] Last Admin: 01/23/22 08:13 Dose: 300 mg Documented By: LUDWIG Glucose (Glucose Gel 15 Gm Gel..Gram.) 15 gm PO Q15M PRN; Protocol PRN Reason: per Hypoglycemia Standing Ord. Piperacillin Sod/Tazobactam (Sod 4.5 gm/ Sodium Chloride) 100 mls @ 200 mls/hr IV Q8H [facility] Last Infusion: 01/23/22 06:27 Dose: 0 mls/hr Documented By: ANNA Vancomycin HCl 500 mg/ Sodium (Chloride) 110 mls @ 110 mls/hr IV Q24H [facility] Last Infusion: 01/22/22 23:05 Dose: 0 mls/hr Documented By: ANNA Lactated Ringer's (Lr) 1,000 mls @ 80 mls/hr IVCONT .[id number] [facility] Last Admin: 01/23/22 05:46 Dose: 80 mls/hr Documented By: ANNA Insulin Human Lispro (Insulin Lispro 100 Unit/Ml 3 Ml Vial) 0 unit SUBCUT QIDACHS [facility]; Protocol Last Admin: 01/23/22 08:13 Dose: 6 unit Documented By: LUDWIG Lactulose (Lactulose 20 Gm/30 Ml Solution) 10 gm PO BEDTIME PRN PRN Reason: constipation Melatonin (Melatonin 3 Mg Tablet) 6 mg PO BEDTIME PRN PRN Reason: Insomnia Metoprolol Tartrate (Metoprolol Tartrate 50 Mg Tablet) 50 mg PO BID [facility]; Protocol Last Admin: 01/23/22 08:14 Dose: 50 mg Documented By: LUDWIG Ondansetron HCl (Ondansetron Hcl 4 Mg/2 Ml Vial) 4 mg IVPUSH Q8H PRN PRN Reason: Nausea and Vomiting Pharmacy Consult (Consult Rx Perform Med Rec) 1 each MISCELLANE ONCE PRN PRN Reason: Consult order Pharmacy Consult (Consult Rx Vancomycin Dosing) 1 each MISCELLANE DAILY PRN PRN Reason: Consult order Senna (Sennosides 8.6 Mg Tablet) 17.2 mg PO BEDTIME PRN PRN Reason: constipation Sodium Chloride (0.9 % Sodium Chloride Flush 3 Ml Syringe) 3 ml IVFLUSH QSHIFT [facility] Last Admin: 01/23/22 07:33 Dose: Not Given Documented By: LUDWIG Non-Admin Reason: IV Running Labs CBC & Chem 7: 01/22/22 07:11 01/23/22 05:44 Labs: Laboratory Results - last 24 hr 01/22/22 01/22/22 01/22/22 12:40 18:39 20:59 Estim Creat Clear Calc Estimated GFR POC Glucose 214 H 289 H 342 H 01/23/22 01/23/22 01/23/22 05:44 06:58 11:21 Estim Creat Clear Calc 29.7 Estimated GFR 22 POC Glucose 276 H 276 H Microbiology Microbiology Results: Microbiology 01/21/22 16:22 Blood Culture - Preliminary Blood - Venous No growth after 24 hours. 01/21/22 16:20 Blood Culture - Preliminary Blood - Venous No growth after 24 hours. Assessment and Plan (1) Diabetic foot ulcer: Status: Acute (2) PVD (peripheral vascular disease): Status: Acute Plan 61-year-old female with pertinent history of insulin-dependent diabetes mellitus, coronary artery disease status post CABG, chronic kidney disease, history of CVA, gout, essential hypertension, obstructive sleep apnea on CPAP who presents to the emergency department for evaluation of nonhealing wound with purulent drainage. #.? Diabetic nonhealing foot ulcer with concern for infection #.? Severe Peripheral vascular disease -will admit patient and continue broad-spectrum antibiotics, vancomycin and Zosyn (renally dosed).? Vascular surgery consulted from the ER, appreciate recommendations.? Patient is on antiplatelet therapy and statin.? Will hold Plavix until surgical evaluation.? continue wound care #.? Acute kidney injury on chronic kidney disease stage 4 -likely prerenal in the setting of intravascular volume depletion.? Monitor creatinine and urine output with IV crystalloid resuscitation-sheron improving ?Avoid nephrotoxins and hold lisinopril, furosemide and spironolactone #.? 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 Continue gabapentin #.? History of CVA #.? CAD status post CABG -on antiplatelet therapy and statin #.? Essential hypertension -continue amlodipine and metoprolol, hold lisinopril as above #.? Gout -on allopurinol, adjusting dosage to kidney function #.? Obstructive sleep apnea -continue CPAP at bedtime DVT prophylaxis:?s/c lovenox Diet:? Diabetic diet inaptient need:sheron on ckd ,severe pad and Diabetic nonhealing foot ulcer with concern for infection need iv antibiotics and possible vascular intervention. Quality Stroke Does the patient have a stroke diagnosis?: No VTE Prior VTE?: No VTE Risk Level:: Medical - moderate - high VTE Device Contraindication: Treatment Not Indicated VTE Drug Contraindication: Treatment Not Indicated
--- NOTE | 2022-01-23 12:41 | MHC.CM.PN ---
EMR REVWED, PT ADMITTES W/NON HEALING DIABETIC FOOT ULCER, CM MET W/PT AND DTR/HCP [facility] AT BEDSIDE, DTR REPORTS PT NEEDS SOME ASSISTANCE AT HOME WHICH SHE PROVIDES, PT USES A WALKER IN AND OUTSIDE OF HOME, HAS A CPAP, SHOWER CHAIR AND HOME MODS, [facility] DENIES PT HAS HOME SERVICES HOWEVER DOES HAVE A NURSE FROM [facility] THAT CALLS AND CHECKS IN ONCE A MONTH, DTR REPORTS SHE ASSISTS HER MOTHER W/ALL NEEDS AND DENIES NEED FOR SERVICES AT THIS TIME. PT VERIFIES PCP CHELA MONZON X3, HCP IS DTR [facility] AND COPY ON FILE. ANTIC PT MAY NEED TO FOLLOW-UP W/WOUND CLINIC D/C PLAN: HOME NO SERVICES W/DTR [facility] FOR TRANSPORT
[2022-01-23 15:47] LABS: Glucose, Whole Blood 342 mg/dL (60-115)
[2022-01-23] MEDS: Enoxaparin Sodium 30 MG/0.3 ML SYRINGE SUBCUT (16:31)
[2022-01-23] MEDS: 0.9 % Sodium Chloride Flush 3 ML SYRINGE IVFLUSH (19:13)
[2022-01-23 19:48] LABS: Vancomycin Random 12.3 mcg/mL (15-20)
[2022-01-23 20:05] LABS: Glucose, Whole Blood 270 mg/dL (60-115)
[2022-01-23] MEDS: Amitriptyline HCl 25 MG TABLET PO (20:38)
[2022-01-23] MEDS: vancomycin HCL 500 MG in 0.9 % Sodium Chloride 100 ML 110 MG IV (20:40)
[2022-01-24 03:11] VITALS: BP 132/61; PULSE 58; RESP 18; TEMP 36.5; O2SAT 96
[2022-01-24] MEDS: Lactated Ringers 1,000 ML 80 ML IVCONT (03:24)
[2022-01-24] MEDS: Piperacillin Sodium/Tazobactam 4.5 GM in 0.9 % Sodium Chloride 100 ML IV ×2 (03:24→12:44)
[2022-01-24 06:18] LABS: Creatinine Clr Calc Pharmacy 30.3; Estimated Glomerular Filt Rate 23
[2022-01-24 07:02] VITALS: BP 131/61; PULSE 57; RESP 18; TEMP 36.2; O2SAT 95
[2022-01-24 07:31] LABS: Glucose, Whole Blood 268 mg/dL (60-115)
--- NOTE | 2022-01-24 07:45 | PM.CNGS ---
History of Present Illness Consult details Consult date: 01/24/22 Reason for consult: wound care Narrative: Very pleasant 61-year-old female presents for evaluation regarding right 4th toe ulceration. She was admitted 2 days ago by the hospitalist service. She has undergone IV antibiotic therapy. Of note she has a history of diabetes and peripheral vascular disease. In addition she has acute on chronic kidney disease. She now presents to us for vascular evaluation. Review of Systems Review of Systems: Yes all other systems are reviewed and are negative Constitutional: Constitutional: Reports no additional constitutional complaints ENT: Reports Normal hearing present Cardiovascular: Cardiovascular: Denies chest pain, Denies chest pain at rest, Denies chest pain with activity and Denies pedal edema Respiratory: Respiratory: Denies cough Gastrointestinal: Gastrointestinal: Denies abdominal pain Musculoskeletal: Musculoskeletal: Denies abnormal gait, Denies muscle cramps and Denies radiating pain into limb Integumentary/Breasts: Skin/Breast: Denies skin ulcer and Denies wounds Neurologic: Reports Normal hearing present and Denies abnormal gait Psychiatric: Psychiatric: Reports no additional psychiatric complaints [facility] Past Medical History Medical History Arthritis Asthma CAD (coronary artery disease) Cerebrovascular accident (CVA) due to occlusion of left middle cerebral artery CKD (chronic kidney disease) Congestive heart failure Diabetes Gout Hypercholesteremia Hypertension Lumbar degenerative disc disease BRYNN (obstructive sleep apnea) Right hemiparesis Sinusitis Skin lesion Stroke Functional capacity: uses cane/walker Family History Family History Father Stroke Mother Myocardial infarction Paternal Uncle Cancer Surgical History Surgical History H/O colonoscopy H/O right breast biopsy History of bilateral tubal ligation History of cataract surgery History of coronary angioplasty with insertion of stent History of esophagogastroduodenoscopy (EGD) History of heart surgery Social History Social History Household Members: Family Housing: House Are you a primary small animal caretaker to a significant other at home: No Do you presently have visiting nurse or other home services: Yes Alcohol intake: never Patient Tobacco Use Status: Never used Tobacco e-Cigarette/Vaping Use: Never Used Second Hand Smoke Exposure: No Use of substances other than those prescribed or required for medical reasons: No Currently Displaying Signs/Symptoms of Drug Intoxication Withdrawal: No Have you been hit, kicked, punched, or otherwise hurt by someone within the past year? If so, by whom?: No Do you feel safe in your current relationship?: Yes Is there a partner from a previous relationship who is making you feel unsafe now?: No Are you made to feel afraid or neglected: No Advance Directives: No Advance Directives Information Provided: No Do you have thoughts of harming others: None Do you have a plan to hurt others: No Plan Recently lost weight without trying: No Nutrition Risks: No Nutritional Risk Patient : No : No Poor oral hygiene: No service: No Current occupational status: disabled Sexual orientation: Straight/Heterosexual Gender identity: Female Cognitive needs: Yes Hearing needs: No Vision needs: No Meds Allergies Allergy/AdvReac Type Severity Reaction Status Date / Time lactose Allergy Intermediate Vomiting Verified 01/19/22 12:21 amlodipine Allergy Mild leg edema Verified 01/19/22 12:21 liraglutide [From VICTOZA] Allergy Mild VOMITING RUBI Verified 01/19/22 12:21 Active Medications: Current Medications Acetaminophen (Acetaminophen 325 Mg Tablet) 650 mg PO Q6H PRN PRN Reason: Pain, Mild (Pain Scale 1-3) Allopurinol (Allopurinol 100 Mg Tablet) 50 mg PO Q2D [facility] Last Admin: 01/22/22 10:50 Dose: 50 mg Amitriptyline HCl (Amitriptyline Hcl 25 Mg Tablet) 25 mg PO BEDTIME [facility] Last Admin: 01/23/22 20:38 Dose: 25 mg Amlodipine Besylate (Amlodipine Besylate 5 Mg Tablet) 5 mg PO DAILY [facility]; Protocol Last Admin: 01/23/22 08:14 Dose: 5 mg Aspirin (Aspirin Enteric Coated 81 Mg Tablet.) 81 mg PO DAILY [facility] Last Admin: 01/23/22 08:14 Dose: 81 mg Atorvastatin Calcium (Atorvastatin Calcium 80 Mg Tablet) 80 mg PO DAILY [facility] Last Admin: 01/23/22 08:13 Dose: 80 mg Dextrose (Dextrose 50 % 25 Gm/50 Ml Syringe) 25 gm IVPUSH Q15M PRN; Protocol PRN Reason: per Hypoglycemia Standing Ord. Empagliflozin (Empagliflozin 10 Mg Tablet) 10 mg PO DAILY [facility] Last Admin: 01/23/22 08:14 Dose: 10 mg Enoxaparin Sodium (Enoxaparin Sodium 30 Mg/0.3 Ml Syringe) 30 mg SUBCUT Q24H [facility] Last Admin: 01/23/22 16:31 Dose: 30 mg Ferrous Sulfate (Ferrous Sulfate 324 Mg Tablet.Dr) 324 mg PO BID [facility] Last Admin: 01/23/22 20:39 Dose: 324 mg Gabapentin (Gabapentin 300 Mg Capsule) 300 mg PO BID [facility] Last Admin: 01/23/22 20:39 Dose: 300 mg Glucose (Glucose Gel 15 Gm Gel..Gram.) 15 gm PO Q15M PRN; Protocol PRN Reason: per Hypoglycemia Standing Ord. Piperacillin Sod/Tazobactam (Sod 4.5 gm/ Sodium Chloride) 100 mls @ 200 mls/hr IV Q8H [facility] Last Infusion: 01/24/22 04:05 Dose: Infused Vancomycin HCl 500 mg/ Sodium (Chloride) 110 mls @ 110 mls/hr IV Q24H [facility] Last Infusion: 01/23/22 22:35 Dose: Infused Lactated Ringer's (Lr) 1,000 mls @ 80 mls/hr IVCONT .[id number] [facility] Last Admin: 01/24/22 03:24 Dose: 80 mls/hr Insulin Human Lispro (Insulin Lispro 100 Unit/Ml 3 Ml Vial) 0 unit SUBCUT QIDACHS [facility]; Protocol Last Admin: 01/23/22 20:39 Dose: 6 unit Lactulose (Lactulose 20 Gm/30 Ml Solution) 10 gm PO BEDTIME PRN PRN Reason: constipation Melatonin (Melatonin 3 Mg Tablet) 6 mg PO BEDTIME PRN PRN Reason: Insomnia Metoprolol Tartrate (Metoprolol Tartrate 50 Mg Tablet) 50 mg PO BID [facility]; Protocol Last Admin: 01/23/22 20:39 Dose: 50 mg Ondansetron HCl (Ondansetron Hcl 4 Mg/2 Ml Vial) 4 mg IVPUSH Q8H PRN PRN Reason: Nausea and Vomiting Pharmacy Consult (Consult Rx Perform Med Rec) 1 each MISCELLANE ONCE PRN PRN Reason: Consult order Pharmacy Consult (Consult Rx Vancomycin Dosing) 1 each MISCELLANE DAILY PRN PRN Reason: Consult order Senna (Sennosides 8.6 Mg Tablet) 17.2 mg PO BEDTIME PRN PRN Reason: constipation Sodium Chloride (0.9 % Sodium Chloride Flush 3 Ml Syringe) 3 ml IVFLUSH QSHIFT [facility] Last Admin: 01/24/22 07:14 Dose: Not Given Home Medications Medication Instructions Recorded Confirmed Last Taken Type blood sugar diagnostic #10 ea 02/24/20 12/06/21 Unknown History insulin regular hum U-500 conc 500 0 - 450 unit subcut DAILY PRN for 02/24/20 01/21/22 01/21/22 History unit/mL subcutaneous soln insulin pump clopidogrel 75 mg tablet (Plavix) 75 mg PO DAILY 08/10/21 01/21/22 01/21/22 History dapagliflozin 10 mg tablet 10 mg PO DAILY 10/12/21 01/21/22 01/21/22 History (Farxiga) furosemide 40 mg tablet 40 mg PO DAILY 12/06/21 01/21/22 01/21/22 History gabapentin 300 mg capsule 300 mg PO BID 01/19/22 01/21/22 01/21/22 History amitriptyline 25 mg tablet 1 tab PO BEDTIME 01/21/22 01/21/22 01/20/22 History Physical Exam Vital Signs: Vital Signs: Last Vital Signs Temp 97.1 F 01/24/22 07:02 Pulse 57 01/24/22 07:02 Resp 18 01/24/22 07:02 BP 131/61 01/24/22 07:02 Pulse Ox 95 01/24/22 07:02 O2 Del Method 01/24/22 07:02 BMI result Body Mass Index 41.4 Const: General: cooperative, healthy appearing and comfortable Orientation/consciousness: oriented to person, oriented to place and oriented to time HEENT: Head: Yes normal to inspection Neck: Neck: Yes normal visual inspection Carotids: no bruits Chest: Chest palpation & inspection: normal inspection of the chest Resp: Effort & Inspection: normal respiratory effort and able to speak in complete sentences Auscultation: clear to auscultation bilaterally, no crackles, no rales, no rhonchi and no wheezes Cardio: Rate: regular rate Rhythm: regular rhythm Heart sounds: S1 normal heart sound present and S2 normal heart sound present Bruits: no carotid bruits Peripheral pulses: dorsalis pedis present (Bilateral DP signals only) GI: Inspection: Yes normal to inspection Skin: Wounds: wounds noted (Right 4th toe approximately 1 cm in diameter ulceration base clean) Hair: normal Neuro: General: oriented to person, oriented to place and oriented to time Cranial nerves: Yes CN's II-XII intact bilaterally and Yes Normal hearing present Cognition (Neuro): normal cognition Motor exam (neuro): 5/5 motor strength present throughout Extrem: Other: venous exam: No significant superficial varicosities or spider telangiectasias, minimal edema General: No clubbing, No cyanosis and No edema Psych: Appearance: grossly normal Mental Status: mental status grossly normal Speech and movement: Normal speech and movement present Results Labs Result diagrams: 01/22/22 07:11 01/24/22 05:15 Labs: Abnormal lab results 01/23/22 01/23/22 01/23/22 Range/Units 11:21 15:27 19:04 Creatinine (0.5-1.4) mg/dL POC Glucose 276 H 342 H (60-115) mg/dL Random Vancomycin 12.3 L (15-20) mcg/mL 01/23/22 01/24/22 01/24/22 Range/Units 19:57 05:15 07:08 Creatinine 2.22 H (0.5-1.4) mg/dL POC Glucose 270 H 268 H (60-115) mg/dL Random Vancomycin (15-20) mcg/mL BMP 01/24/22 05:15 Creatinine 2.22 H All other labs normal. Assessment and Plan (1) PVD (peripheral vascular disease): Status: Acute Plan In short 41-year-old female with peripheral vascular disease diabetes and chronic kidney disease has a nonhealing right foot ulcer. It is relatively small and clean. Noninvasive testing did demonstrate significant SFA disease. Ideally would like to do angiogram to allow help this wound heal. Concern is her kidney function. It has not improved through the weekend and still remains at a GFR of 23. I have ordered a Nephrology consult to see if this could be improved prior to angiogram. Would most likely be able to do an angiogram with less than 100 cc of contrast. Continue current medical care. Will follow with you. Procedures Date of Service Date of Service: 01/24/22
--- NOTE | 2022-01-24 08:25 | P.CDIC_ITS ---
CDI Concurrent Query Documentation Clarification: PHYSICIAN'S DOCUMENTATION REQUEST Date of Query: 01/24/22 0826 Patient Name: Anna Mead Admit Date: 01/21/22 Dear Doctor, A review of the medical record indicates additional documentation may be needed. Please review below and update the documentation accordingly. Clinical Indicators: Height: [] 5'2 Weight: [] 102.7 kg BMI: [] 41.4 Other Clinical Notes Supporting Significance of the BMI: Risk Factors/Clinical Indicators/Treatments If possible, please provide an associated diagnosis related to the abnormal BMI, such as: For a BMI >= 40: * Overweight * Obesity * Due to excess calories * Drug induced * Due to other cause * Severe or Morbid Obesity * With alveolar hypoventilation * Without alveolar hypoventilation Or: * BMI is not significant * Other (please specify) * Unable to determine Use of terms such as suspected, likely, concern for, or probable (associated with a specific diagnosis that is being evaluated, monitored, or treated as if it exists) are acceptable and can be coded in the inpatient setting, when documented at the time of discharge. Thank you, Chitra Terrazas RN Extension: [phone] Please use your independent medical judgment in providing your response. THIS QUERY IS PART OF THE PERMANENT MEDICAL RECORD Provider Response: Other Other Diagnosis: morbid obesity
[2022-01-24] MEDS: Gabapentin 300 MG CAPSULE PO (08:34)
[2022-01-24] MEDS: Insulin Lispro 100 UNIT/ML 3 ML VIAL SUBCUT ×3 (08:34→17:42)
[2022-01-24] MEDS: amLODIPine Besylate 5 MG TABLET PO (08:35)
[2022-01-24] MEDS: Atorvastatin Calcium 80 MG TABLET PO (08:35)
[2022-01-24] MEDS: Empagliflozin 10 MG TABLET PO (08:35)
[2022-01-24] MEDS: Ferrous Sulfate 324 MG TABLET.DR PO (08:35)
[2022-01-24] MEDS: Metoprolol Tartrate 50 MG TABLET PO (08:35)
[2022-01-24] MEDS: allopurinoL 100 MG TABLET 50 MG PO (08:38)
[2022-01-24] MEDS: Aspirin Enteric Coated 81 MG TABLET.DR PO (08:38)
--- NOTE | 2022-01-24 10:48 | HO.PM.IMPN ---
Subjective Subjective Date of Service: 01/24/22 Interval History: Non healing wound with drainage,pad Review of Systems No new overnight event, No fevers Denies any abdominal pain or shortness of breath? or chest pain or or cough Physical Exam Vital Signs: Vital Signs: Last Vital Signs Temp 97.1 F 01/24/22 07:02 Pulse 57 01/24/22 07:02 Resp 18 01/24/22 07:02 BP 131/61 01/24/22 07:02 Pulse Ox 95 01/24/22 07:02 O2 Del Method 01/24/22 07:02 BMI result Body Mass Index 41.4 Elderly female lying in bed in no distress,pleasant Neck supple, no JVD Regular rate and rhythm, S1-S2 heard Regular breath sounds bilaterally, no wheezing or crackles appreciated Abdomen soft nontender, no guarding, no rigidity Patient is awake, alert ; no focal motor deficit Extremity:? Right 4th toe wound with minimum serosanguineous drainag Objective Data Active Medications Acetaminophen (Acetaminophen 325 Mg Tablet) 650 mg PO Q6H PRN PRN Reason: Pain, Mild (Pain Scale 1-3) Allopurinol (Allopurinol 100 Mg Tablet) 50 mg PO Q2D [facility] Last Admin: 01/24/22 08:38 Dose: 50 mg Documented By: MAGGIEMA Amitriptyline HCl (Amitriptyline Hcl 25 Mg Tablet) 25 mg PO BEDTIME [facility] Last Admin: 01/23/22 20:38 Dose: 25 mg Documented By: LUDY Amlodipine Besylate (Amlodipine Besylate 5 Mg Tablet) 5 mg PO DAILY [facility]; Protocol Last Admin: 01/24/22 08:35 Dose: 5 mg Documented By: MAGGIEMA Aspirin (Aspirin Enteric Coated 81 Mg Tablet.) 81 mg PO DAILY [facility] Last Admin: 01/24/22 08:38 Dose: 81 mg Documented By: MAGGIEMA Atorvastatin Calcium (Atorvastatin Calcium 80 Mg Tablet) 80 mg PO DAILY [facility] Last Admin: 01/24/22 08:35 Dose: 80 mg Documented By: LUDWIG Dextrose (Dextrose 50 % 25 Gm/50 Ml Syringe) 25 gm IVPUSH Q15M PRN; Protocol PRN Reason: per Hypoglycemia Standing Ord. Empagliflozin (Empagliflozin 10 Mg Tablet) 10 mg PO DAILY [facility] Last Admin: 01/24/22 08:35 Dose: 10 mg Documented By: LUDWIG Enoxaparin Sodium (Enoxaparin Sodium 30 Mg/0.3 Ml Syringe) 30 mg SUBCUT Q24H [facility] Last Admin: 01/23/22 16:31 Dose: 30 mg Documented By: LUDWIG Ferrous Sulfate (Ferrous Sulfate 324 Mg Tablet.Dr) 324 mg PO BID [facility] Last Admin: 01/24/22 08:35 Dose: 324 mg Documented By: LUDWIG Gabapentin (Gabapentin 300 Mg Capsule) 300 mg PO BID [facility] Last Admin: 01/24/22 08:34 Dose: 300 mg Documented By: LUDWIG Glucose (Glucose Gel 15 Gm Gel..Gram.) 15 gm PO Q15M PRN; Protocol PRN Reason: per Hypoglycemia Standing Ord. Piperacillin Sod/Tazobactam (Sod 4.5 gm/ Sodium Chloride) 100 mls @ 200 mls/hr IV Q8H [facility] Last Infusion: 01/24/22 04:05 Dose: 0 mls/hr Documented By: LUDY Vancomycin HCl 500 mg/ Sodium (Chloride) 110 mls @ 110 mls/hr IV Q24H [facility] Last Infusion: 01/23/22 22:35 Dose: 0 mls/hr Documented By: LUDY Lactated Ringer's (Lr) 1,000 mls @ 80 mls/hr IVCONT .[id number] [facility] Last Admin: 01/24/22 03:24 Dose: 80 mls/hr Documented By: LUDY Insulin Human Lispro (Insulin Lispro 100 Unit/Ml 3 Ml Vial) 0 unit SUBCUT QIDACHS [facility]; Protocol Last Admin: 01/24/22 08:34 Dose: 6 unit Documented By: LUDWIG Lactulose (Lactulose 20 Gm/30 Ml Solution) 10 gm PO BEDTIME PRN PRN Reason: constipation Melatonin (Melatonin 3 Mg Tablet) 6 mg PO BEDTIME PRN PRN Reason: Insomnia Metoprolol Tartrate (Metoprolol Tartrate 50 Mg Tablet) 50 mg PO BID [facility]; Protocol Last Admin: 01/24/22 08:35 Dose: 50 mg Documented By: LUDWIG Ondansetron HCl (Ondansetron Hcl 4 Mg/2 Ml Vial) 4 mg IVPUSH Q8H PRN PRN Reason: Nausea and Vomiting Pharmacy Consult (Consult Rx Perform Med Rec) 1 each MISCELLANE ONCE PRN PRN Reason: Consult order Pharmacy Consult (Consult Rx Vancomycin Dosing) 1 each MISCELLANE DAILY PRN PRN Reason: Consult order Senna (Sennosides 8.6 Mg Tablet) 17.2 mg PO BEDTIME PRN PRN Reason: constipation Sodium Chloride (0.9 % Sodium Chloride Flush 3 Ml Syringe) 3 ml IVFLUSH QSHIFT [facility] Last Admin: 01/24/22 07:14 Dose: Not Given Documented By: LUDWIG Non-Admin Reason: IV Running Labs CBC & Chem 7: 01/22/22 07:11 01/24/22 05:15 Labs: Laboratory Results - last 24 hr 01/23/22 01/23/22 01/23/22 11:21 15:27 19:04 Estim Creat Clear Calc Estimated GFR POC Glucose 276 H 342 H Random Vancomycin 12.3 L 01/23/22 01/24/22 01/24/22 19:57 05:15 07:08 Estim Creat Clear Calc 30.3 Estimated GFR 23 POC Glucose 270 H 268 H Random Vancomycin Microbiology Microbiology Results: Microbiology 01/21/22 16:22 Blood Culture - Preliminary Blood - Venous No growth after 48 hours. 01/21/22 16:20 Blood Culture - Preliminary Blood - Venous No growth after 48 hours. Assessment and Plan (1) Diabetic foot ulcer: Status: Acute (2) PVD (peripheral vascular disease): Status: Acute (3) CKD (chronic kidney disease) stage 4, GFR 15-29 ml/min: Status: Acute Plan 61-year-old female with pertinent history of insulin-dependent diabetes mellitus, coronary artery disease status post CABG, chronic kidney disease, history of CVA, gout, essential hypertension, obstructive sleep apnea on CPAP who presents to the emergency department for evaluation of nonhealing wound with purulent drainage. #.? Diabetic nonhealing foot ulcer with concern for infection #.? Severe Peripheral vascular disease -will admit patient and continue broad-spectrum antibiotics, vancomycin and Zosyn (renally dosed).? Vascular surgery consulted from the ER, appreciate recommendations.? Patient is on antiplatelet therapy and statin.? Will hold Plavix until surgical evaluation.? continue wound care vascular eval appreciated -need nephrology eval prior to angiogram nephrology consult pendin #.? Acute kidney injury on chronic kidney disease stage 4 -likely prerenal in the setting of intravascular volume depletion.? Monitor creatinine and urine output with IV crystalloid resuscitation-sheron improving ?Avoid nephrotoxins and hold lisinopril, furosemide and spironolactone #.? 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 Continue gabapentin #.? History of CVA #.? CAD status post CABG -on antiplatelet therapy and statin #.? Essential hypertension -continue amlodipine and metoprolol, hold lisinopril as above #.? Gout -on allopurinol, adjusting dosage to kidney function #.? Obstructive sleep apnea -continue CPAP at bedtime DVT prophylaxis:?s/c lovenox Diet:? Diabetic diet inaptient need:sheron on ckd ,severe pad and Diabetic nonhealing foot ulcer with concern for infection need iv antibiotics and possible vascular intervention. Quality Stroke Does the patient have a stroke diagnosis?: No VTE Prior VTE?: No VTE Risk Level:: Medical - moderate - high VTE Device Contraindication: Treatment Not Indicated VTE Drug Contraindication: Treatment Not Indicated
[2022-01-24 11:08] VITALS: BP 143/65; PULSE 59; RESP 18; TEMP 36.4; O2SAT 96
[2022-01-24 11:47] LABS: Glucose, Whole Blood 210 mg/dL (60-115)
--- NOTE | 2022-01-24 12:03 | CONS_ITS ---
DATE OF SERVICE: 01/24/2022 REASON FOR CONSULTATION: I was asked to see patient to assist in evaluation and management of patient's acute kidney injury on chronic kidney disease as reflected by a creatinine of 2.22 today whereas her baseline creatinine seems to be in the 1.5 to 2.0 range going back to July of 2020, based on the electronic medical record. HISTORY OF PRESENT ILLNESS: In summary, she is a 61-year-old female with a history of diabetes that is insulin dependent, coronary artery disease, history of a CABG, advanced chronic kidney disease, baseline creatinine 1.5 to 2.0, history of a CVA, gout, essential hypertension, obstructive sleep apnea requiring CPAP, who was sent over to the hospital for nonhealing foot wound with purulent discharge and concern for osteomyelitis. The patient is closely followed by vascular surgery and they were concerned about nonhealing diabetic foot infection. Overall, she is feeling a bit better. She denies any chest pain, fever, sweats, or chills. PAST MEDICAL HISTORY: As outlined above. MEDICATIONS: Her medications on admission are noted in the admitting notes and include insulin, Plavix, Farxiga, Lasix, gabapentin, amitriptyline. ALLERGIES: SHE HAS MULTIPLE ALLERGIES NOTED IN THE EHR. MEDICATIONS: Her current medications are noted the MAR include vancomycin. SOCIAL HISTORY: She is a nonsmoker, nondrinker. No illicit drug use and denies taking NSAIDs. FAMILY HISTORY: Noncontributory. REVIEW OF SYSTEMS: As noted above. PHYSICAL EXAMINATION: VITAL SIGNS: Blood pressure 130/60 with a heart rate in the 60s. She is afebrile. HEENT: Head is atraumatic and normocephalic. Mucous membranes are moist. NECK: Supple. LUNGS: Clear. Decreased at the bases. CARDIAC: Regular rate and rhythm without rub. ABDOMEN: Soft, nontender. Good bowel sounds. EXTREMITIES: Right 4th toe wound with discharge and drainage, and dressing in place. LABORATORY DATA: As mentioned, creatinine today was 2.2. Her creatinine going back to July of 2020 has been in the 1.5 to 2.2 range. Potassium is 4.8, sodium 138, bicarb 27. Hemoglobin 11.6, hematocrit 37.1, white count 8.1. Urine studies from October showed urine albumin to creatinine ratio of 180 mg of albumin per gram of creatinine. IMPRESSION: A 61-YEAR-OLD END STAGE RENAL DIABETIC WITH MULTIPLE CHRONIC MEDICAL PROBLEMS AND NOW A NONHEALING DIABETIC WOUND WITH ADVANCED CHRONIC KIDNEY DISEASE REFLECTED BY BASELINE CREATININE IN THE 1.5 TO 2.2 RANGE. 1. Advanced chronic kidney disease. She most likely has underlying stage 3B/4 chronic kidney disease from underlying diabetic nephropathy. Other possibilities seem much less likely, but nonetheless, we will do a workup to rule out nondiabetic causes for her advanced kidney disease. Chronic wound infections can be associated with secondary amyloidosis in the kidneys. This would be a possibility and we will rule this out with a serum immunofixation. The hinson for managing patient is to try and delay progressive loss of renal function and also rule out nondiabetic causes. We will do tests to rule this out and we will need to monitor renal function on vancomycin because this places at risk for further worsening renal function. 2. Nonhealing diabetic foot infection. 3. Question of metabolic bone disease associated with chronic kidney disease. We will check intact PTH and vitamin D level. SUGGESTIONS: At this time include, further serologic and urine studies to rule out nondiabetic causes for her advanced kidney disease. Avoid nephrotoxins such as NSAIDs. Try and get her on alternative antibiotics to vancomycin if possible. She will need close outpatient followup for ongoing measures to try and delay progression of loss of her kidney function. She is at high risk for progressive loss of renal function and also needing dialysis in the future. We would also avoid placing a PICC line if she needs chronic antibiotics because of the risk of needing dialysis in her future. We will follow the patient with the team. MD ELOY Villatoro/DAVID / [id number]
[2022-01-24] MEDS: Clopidogrel Bisulfate 75 MG TABLET PO (12:44)
--- NOTE | 2022-01-24 13:04 | MHC.CM.PN ---
EMR REVIEWED, PER MULTIDISCIPLINARY ROUNDS PT AWAITING NEPHROLOGY AND VASCULAR SURGERY CONSULTS, ANTIC PT WILL NEED ANGIO WHILE INPT, NO PLAN FOR D/C TODAY, CM WILL CONT TO FOLLOW D/C NEEDS.
--- NOTE | 2022-01-24 13:18 | P.CNID_ITS ---
History of Present Illness Data of Consult Service Date: 01/24/22 Requesting physician: Andrea Jarrell Primary Care Provider: Shara Grimes MD HPI Reason for consult: nonhealing right toe wound She presents with less than .5 cm wound top of right fourth toe hammertoe configuration. She hit toe on door one week ago and there was complaint of pus from area. She has no fever or chills or cellulitis. There is erosive arthropathy but no cellulitis or fever. She is seeing Dr Baires GFR is 30 and ESR 63 and no elevated WBC. Review of Systems Review of Systems: Yes all other systems are reviewed and are negative PMFSH Past Medical History Medical History Arthritis Asthma CAD (coronary artery disease) Cerebrovascular accident (CVA) due to occlusion of left middle cerebral artery CKD (chronic kidney disease) Congestive heart failure Diabetes Gout Hypercholesteremia Hypertension Lumbar degenerative disc disease BRYNN (obstructive sleep apnea) Right hemiparesis Sinusitis Skin lesion Stroke Functional capacity: uses cane/walker Family History Family History Father Stroke Mother Myocardial infarction Paternal Uncle Cancer Family history: reviewed and not pertinent Surgical History Surgical History H/O colonoscopy H/O right breast biopsy History of bilateral tubal ligation History of cataract surgery History of coronary angioplasty with insertion of stent History of esophagogastroduodenoscopy (EGD) History of heart surgery Social History Social History Household Members: Family Housing: House Are you a primary care coordinator to a significant other at home: No Do you presently have visiting nurse or other home services: Yes Alcohol intake: never Patient Tobacco Use Status: Never used Tobacco e-Cigarette/Vaping Use: Never Used Second Hand Smoke Exposure: No service: No Current occupational status: disabled Sexual orientation: Straight/Heterosexual Gender identity: Female Cognitive needs: Yes Hearing needs: No Vision needs: No Meds Allergies Allergy/AdvReac Type Severity Reaction Status Date / Time lactose Allergy Intermediate Vomiting Verified 01/19/22 12:21 amlodipine Allergy Mild leg edema Verified 01/19/22 12:21 liraglutide [From VICTOZA] Allergy Mild VOMITING RUBI Verified 01/19/22 12:21 Active Medications: Current Medications Acetaminophen (Acetaminophen 325 Mg Tablet) 650 mg PO Q6H PRN PRN Reason: Pain, Mild (Pain Scale 1-3) Allopurinol (Allopurinol 100 Mg Tablet) 50 mg PO Q2D [facility] Last Admin: 01/24/22 08:38 Dose: 50 mg Amitriptyline HCl (Amitriptyline Hcl 25 Mg Tablet) 25 mg PO BEDTIME [facility] Last Admin: 01/23/22 20:38 Dose: 25 mg Amlodipine Besylate (Amlodipine Besylate 5 Mg Tablet) 5 mg PO DAILY [facility]; Protocol Last Admin: 01/24/22 08:35 Dose: 5 mg Aspirin (Aspirin Enteric Coated 81 Mg Tablet.) 81 mg PO DAILY [facility] Last Admin: 01/24/22 08:38 Dose: 81 mg Atorvastatin Calcium (Atorvastatin Calcium 80 Mg Tablet) 80 mg PO DAILY [facility] Last Admin: 01/24/22 08:35 Dose: 80 mg Clopidogrel Bisulfate (Clopidogrel Bisulfate 75 Mg Tablet) 75 mg PO DAILY [facility] Last Admin: 01/24/22 12:44 Dose: 75 mg Dextrose (Dextrose 50 % 25 Gm/50 Ml Syringe) 25 gm IVPUSH Q15M PRN; Protocol PRN Reason: per Hypoglycemia Standing Ord. Empagliflozin (Empagliflozin 10 Mg Tablet) 10 mg PO DAILY [facility] Last Admin: 01/24/22 08:35 Dose: 10 mg Enoxaparin Sodium (Enoxaparin Sodium 30 Mg/0.3 Ml Syringe) 30 mg SUBCUT Q24H [facility] Last Admin: 01/23/22 16:31 Dose: 30 mg Ferrous Sulfate (Ferrous Sulfate 324 Mg Tablet.) 324 mg PO BID [facility] Last Admin: 01/24/22 08:35 Dose: 324 mg Gabapentin (Gabapentin 300 Mg Capsule) 300 mg PO BID [facility] Last Admin: 01/24/22 08:34 Dose: 300 mg Glucose (Glucose Gel 15 Gm Gel..Gram.) 15 gm PO Q15M PRN; Protocol PRN Reason: per Hypoglycemia Standing Ord. Lactated Ringer's (Lr) 1,000 mls @ 80 mls/hr IVCONT .[id number] [facility] Last Admin: 01/24/22 03:24 Dose: 80 mls/hr Insulin Human Lispro (Insulin Lispro 100 Unit/Ml 3 Ml Vial) 0 unit SUBCUT QIDACHS [facility]; Protocol Last Admin: 01/24/22 12:43 Dose: 4 unit Lactulose (Lactulose 20 Gm/30 Ml Solution) 10 gm PO BEDTIME PRN PRN Reason: constipation Melatonin (Melatonin 3 Mg Tablet) 6 mg PO BEDTIME PRN PRN Reason: Insomnia Metoprolol Tartrate (Metoprolol Tartrate 50 Mg Tablet) 50 mg PO BID [facility]; Protocol Last Admin: 01/24/22 08:35 Dose: 50 mg Ondansetron HCl (Ondansetron Hcl 4 Mg/2 Ml Vial) 4 mg IVPUSH Q8H PRN PRN Reason: Nausea and Vomiting Pharmacy Consult (Consult Rx Perform Med Rec) 1 each MISCELLANE ONCE PRN PRN Reason: Consult order Pharmacy Consult (Consult Rx Vancomycin Dosing) 1 each MISCELLANE DAILY PRN PRN Reason: Consult order Senna (Sennosides 8.6 Mg Tablet) 17.2 mg PO BEDTIME PRN PRN Reason: constipation Sodium Chloride (0.9 % Sodium Chloride Flush 3 Ml Syringe) 3 ml IVFLUSH QSCAFT [facility] Last Admin: 01/24/22 07:14 Dose: Not Given Home Medications Medication Instructions Recorded Confirmed Last Taken Type blood sugar diagnostic #10 ea 02/24/20 12/06/21 Unknown History insulin regular hum U-500 conc 500 0 - 450 unit subcut DAILY PRN for 02/24/20 01/21/22 01/21/22 History unit/mL subcutaneous soln insulin pump clopidogrel 75 mg tablet (Plavix) 75 mg PO DAILY 08/10/21 01/21/22 01/21/22 History dapagliflozin 10 mg tablet 10 mg PO DAILY 10/12/21 01/21/22 01/21/22 History (Farxiga) furosemide 40 mg tablet 40 mg PO DAILY 12/06/21 01/21/22 01/21/22 History gabapentin 300 mg capsule 300 mg PO BID 01/19/22 01/21/22 01/21/22 History amitriptyline 25 mg tablet 1 tab PO BEDTIME 01/21/22 01/21/22 01/20/22 History Physical Exam Vital Signs: Vital Signs: Last Vital Signs Temp 97.6 F 01/24/22 11:08 Pulse 59 09/26/22 11:08 Resp 18 01/24/22 11:08 BP 143/65 H 01/24/22 11:08 Pulse Ox 96 01/24/22 11:08 O2 Del Method 01/24/22 11:08 BMI result Body Mass Index 41.4 Extrem: Other: tiny area hammer toe configuration right fourth toe, no cellulitis ,tinea pedis or purulence pulses diminished neuropathy Results Labs CBC & Chem 7: 01/22/22 07:11 01/24/22 05:15 Labs: BMP 01/24/22 05:15 Creatinine 2.22 H Microbiology Microbiology Results: Microbiology 01/21/22 16:22 Blood - Venous Blood Culture - Preliminary No growth after 48 hours. 01/21/22 16:20 Blood - Venous Blood Culture - Preliminary No growth after 48 hours. Assessment and Plan (1) Diabetic foot ulcer: Status: Acute There is no osteomyelitis at this time and no need for nursing home antibiotics at this time. The ulcer looks clean now and no purulence. She has potential for infection if doesnt heal She has Vascular maximizing blood flow to area (2) Acute kidney injury superimposed on chronic kidney disease: Status: Acute (3) PVD (peripheral vascular disease): Status: Acute Plan Maximize blood flow and reduce pressure to area. Keep clean and dry. Po antibiotics when Vascular surgery is done with testing with Doxycycline 100 mg bid for 14 d
--- NOTE | 2022-01-24 14:57 | PM.DS ---
DS: Providers Provider Date of Service: 01/24/22 Date of admission: 01/21/22 19:48 Primary care physician: Shara Grimes MD Consults: 01/21/22 20:45 Consult to Vascular Surgery Routine Consulting Provider: Josiah Baires Reason for consultation: severe peripheral vascular disease Has provider been notified: No 01/22/22 08:06 Consult to Nephrology Routine Consulting Provider: Petar Stevens Reason for consultation: sheron on ckd ,pad -may need vascular intervention Has provider been notified: No 01/24/22 07:43 Consult to Nephrology Routine Consulting Provider: Petar Stevens Reason for consultation: Pre angiogram evaluation Has provider been notified: No 01/24/22 11:56 Consult to Infectious Diseases Routine Consulting Provider: Nadia Tello Reason for consultation: pvd,foot toe erosion ?need any antibiotcs Has provider been notified: No DS: Diagnosis Discharge Diagnosis (1) Diabetic foot ulcer: Status: Acute (2) Acute kidney injury superimposed on chronic kidney disease: Status: Acute (3) PVD (peripheral vascular disease): Status: Acute DS: Summary Hospital Course Hospital Course: 61-year-old female with pertinent history of insulin-dependent diabetes mellitus, coronary artery disease status post CABG, chronic kidney disease, history of CVA, gout, essential hypertension, obstructive sleep apnea on CPAP who presents to the emergency department for evaluation of nonhealing wound with purulent drainage.? History was obtained by the daughter.? Patient had trauma to the right toes when she hit her right foot to the door about 1 week ago.? Since then, patient has had a wound to the right 4th toe which has not healed.? It has also started draining serosanguineous fluid.? The daughter mentioned that she brought her mother to the ER due to nonhealing wound and continuous persistent drainage of pus.. No associated pain while ambulation.? Patient denies fever, chills, chest discomfort, palpitations, shortness of breath, abdominal pain, extremity pain, changes in urinary or bowel habits. In the ER, duplex arterial scan was concerning for severe peripheral vascular disease.? Vascular surgery was consulted who recommended admission with broad-spectrum antibiotics. hospital course: Patient was admitted for for possible toe ulcer secondary to pvd and also has diabetes, in addition patient also has CKD: Patient was initially started on IV antibiotic but patient does not have any leukocytosis or fever or any purulence from the ulcer, x-ray-no osteomyelitis. Seen by vascular and Infectious Disease: Recommended outpatient workup, and Infectious Disease suggested 2 weeks of p.o. doxycycline. CKD: Seen by nephrology-nephrology workup ordered,close outpatient followup for ongoing measures to try and delay progression of loss of her kidney function.? She is at high risk for progressive loss of renal function and also needing dialysis in the future. Monitor BMP, nephrologic workup and electrolyte outpatient knee and follow-up with Nephrology and vascular for further management out patiently. inadditon lisinipril and lasix on hold until repeat bmp as well as follow up with nephrology for further use of above medications . Avoid nephrotoxic medications. Above management discussed with the patient in detail length both patient and her daughter indetailed length-they understand and in agreement with the above plan, time spent 50 minutes and 50% time spent on counseling. Significant findings: As above. Procedures performed: None. Treatment and response: As above. Complications: None. Time Spent with Patient Time attestation: Total time spent providing and/or coordinating discharge services: Discharge coordination time: Greater than 30 minutes Quality: Safe Use of Opioids Does Pt have an Active Cancer Diagnosis on the Problem List?: No Quality: Stroke Does the patient have a stroke diagnosis?: No Physical Exam Vital Signs: Vital Signs: Last Vital Signs Temp 97.6 F 01/24/22 11:08 Pulse 59 01/24/22 11:08 Resp 18 01/24/22 11:08 BP 143/65 H 01/24/22 11:08 Pulse Ox 96 01/24/22 11:08 O2 Del Method 01/24/22 11:08 BMI result Body Mass Index 41.4 Elderly female lying in bed in no distress Neck supple, no JVD Regular rate and rhythm, S1-S2 heard Regular breath sounds bilaterally, no wheezing or crackles appreciated Abdomen soft nontender, no guarding, no rigidity Patient is awake, alert and oriented to self, place, time and person ; no focal motor deficit Extremity:? Right 4th toe wound ,dry, no discharge. Psych: Normal mood No pedal edema DS: Data Data Completed and Pending Labs on day of discharge: Laboratory Results - last 24 hr 01/23/22 01/23/22 01/23/22 15:27 19:04 19:57 Creatinine Estim Creat Clear Calc Estimated GFR POC Glucose 342 H 270 H Random Vancomycin 12.3 L 01/24/22 01/24/22 01/24/22 05:15 07:08 11:13 Creatinine 2.22 H Estim Creat Clear Calc 30.3 Estimated GFR 23 POC Glucose 268 H 210 H Random Vancomycin Preliminary micro results at discharge 01/21/22 16:22 Blood Culture - Preliminary Blood - Venous No growth after 48 hours. 01/21/22 16:20 Blood Culture - Preliminary Blood - Venous No growth after 48 hours. Additional Comments Additional comments: XR/XR foot RT min 3V IMPRESSION: -No gas tracking in soft tissues or acute bony destructive process. No osteomyelitis demonstrated. ? 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 ? -Bilateral calcaneal spurring, arthropathy midfoot with dorsal spurring. Bilateral great toe osteoarthritis. US/US venous duplex LE RT IMPRESSION: No DVT demonstrated in the right lower extremity. US/US arterial duplex LE RT IMPRESSION: Severe peripheral vascular disease with monophasic waveforms noted throughout with the exception of the common femoral artery where there is normal triphasic flow. Findings are suggestive of severe SFA and tibial runoff disease. Elective CT angiography of the abdomen and pelvis and bilateral lower extremities may be useful for further evaluation. Discharge Plan Discharge Patient Disposition: Home Health Service Discharge Diagnosis: Peripheral vascular disease, toe ulcer, CKD. Referrals: Josiah Baires MD [Physician] - 1 Week (follow up outpatient.) Shara Verdugo MD [Primary Care Provider] - 1 Week Darrell Santa MD [Physician] - 1 Week (follow up outpatient) Discharge Medications: New doxycycline hyclate 100 mg capsule 100 mg PO BID Qty: 28 0RF Continued (DME) Shower Chair Misc See Rx Instructions .ROUTE .MEDSUPPLY Qty: 1 0RF Rx Instructions: As directed (DME) walker Misc See Rx Instructions .ROUTE .MEDSUPPLY Qty: 1 0RF Rx Instructions: with seat and wheels spironolactone 25 mg tablet 25 mg PO DAILY 90 Days Qty: 90 5RF sennosides [Senna Laxative] 8.6 mg tablet 17.2 mg PO BEDTIME PRN (Reason: constipation) 30 Days Qty: 60 5RF ascorbic acid (vitamin C) 500 mg capsule 500 mg PO DAILY 90 Days Qty: 90 3RF lactulose 10 gram/15 mL solution 10 g PO BEDTIME PRN (Reason: constipation) 30 Days Qty: 450 2RF amlodipine 5 mg tablet 5 mg PO DAILY 90 Days Qty: 90 3RF Rx Instructions: Reduction in dose metoprolol tartrate 25 mg tablet 50 mg PO BID 90 Days Qty: 360 3RF clopidogrel [Plavix] 75 mg tablet 75 mg PO DAILY ferrous sulfate 325 mg (65 mg iron) tablet 325 mg PO BID Qty: 60 3RF amitriptyline 25 mg tablet 1 tab PO BEDTIME allopurinol 300 mg tablet 300 mg PO DAILY Qty: 30 6RF aspirin 81 mg tablet,delayed release (DR/EC) 81 mg PO DAILY Qty: 30 6RF cholecalciferol (vitamin D3) 50 mcg (2,000 unit) capsule 50 mcg PO DAILY 90 Days Qty: 90 2RF rosuvastatin 40 mg tablet 40 mg PO DAILY 90 Days Qty: 90 3RF insulin regular hum U-500 conc 500 unit/mL solution 0 - 450 unit subcut DAILY PRN (Reason: for insulin pump) (DME) blood sugar diagnostic Strip See Rx Instructions Not Applicable .MEDSUPPLY Qty: 10 Rx Instructions: As directed gabapentin 300 mg capsule 300 mg PO BID Farxiga 10 mg tablet 10 mg PO DAILY Held lisinopril 5 mg tablet 5 mg PO DAILY 90 Days Qty: 90 3RF Hold Instructions: Resume on 01/24/22. please repeat bmp and will need nephrology clearence before starting lisinopril furosemide 40 mg tablet 40 mg PO DAILY Hold Instructions: Resume on 01/31/22. hold and repeat bmp ,follow up with nephrology before staring lasix. Discharge Orders: Discharge Order (Routine); Ordered 01/24/22 Ordered By: Andrea Jarrell Diet: Advance to usual diet Activity on Discharge: As tolerated Stand Alone Forms: Patient Portal Discharge page Other Ambulatory Orders: Basic Metabolic Panel (Routine) Timeframe: 1 Week Facility: [facility] - Location: Laboratory Ordered By: Andrea Jarrell Care Plan Goals: Patient was admitted for for possible toe ulcer secondary to pvd and also has diabetes, in addition patient also has CKD: Patient was initially started on IV antibiotic but patient does not have any leukocytosis or fever or any purulence from the ulcer, x-ray-no osteomyelitis. Seen by vascular and Infectious Disease: Recommended outpatient workup, and Infectious Disease suggested 2 weeks of p.o. doxycycline. CKD: Seen by nephrology-nephrology workup ordered,close outpatient followup for ongoing measures to try and delay progression of loss of her kidney function.? She is at high risk for progressive loss of renal function and also needing dialysis in the future. Monitor BMP, nephrologic workup and electrolyte outpatient knee and follow-up with Nephrology and vascular for further management out patiently. Health Concerns: As above. Plan of Treatment: Monitor BMP,nephrologic workup and electrolyte . Follow-up outpatient with Nephrology and vascular for further management of CKD and PVD. Assessment: As above.
[2022-01-24 15:05] VITALS: BP 136/63; PULSE 67; RESP 17; TEMP 36.4; O2SAT 97
[2022-01-24 15:38] LABS: Glucose, Whole Blood 265 mg/dL (60-115)
[2022-01-24] MEDS: Enoxaparin Sodium 30 MG/0.3 ML SYRINGE SUBCUT (17:41)
[2022-01-24] MEDS: 0.9 % Sodium Chloride Flush 3 ML SYRINGE IVFLUSH (17:42)
[2022-01-24 18:57] LABS: Vancomycin Trough 11.2 mcg/mL (10.0-20.0)
== END 2022-01-24 20:12 | disposition home health service (06) | DRG 197 ==
LOC: HO.ED 18:13 → HO.EDOVER 20:34 → HO.S3 01-22 18:04
PROVIDERS: Physician Assistant Medical; Admitting Provider Student in an Organized Health Care Education/Training Program; Emergency Provider Emergency Medicine; PCP Internal Medicine; Visit Provider Internal Medicine
DX: E11.51 Type 2 diabetes mellitus with diabetic peripheral angiopathy without gangrene (principal); I13.0 Hypertensive heart and chronic kidney disease with heart failure and stage 1 through stage 4 chronic kidney disease, or unspecified chronic kidney disease; N17.9 Acute kidney failure, unspecified; E11.22 Type 2 diabetes mellitus with diabetic chronic kidney disease; E11.621 Type 2 diabetes mellitus with foot ulcer; L97.519 Non-pressure chronic ulcer of other part of right foot with unspecified severity; N18.4 Chronic kidney disease, stage 4 (severe); G47.33 Obstructive sleep apnea (adult) (pediatric); G89.29 Other chronic pain; Z86.73 Personal history of transient ischemic attack (TIA), and cerebral infarction without residual deficits; Z95.1 Presence of aortocoronary bypass graft; I25.10 Atherosclerotic heart disease of native coronary artery without angina pectoris; M10.9 Gout, unspecified; E66.01 Morbid (severe) obesity due to excess calories; E11.40 Type 2 diabetes mellitus with diabetic neuropathy, unspecified; N25.0 Renal osteodystrophy; Z68.41 Body mass index [BMI] 40.0-44.9, adult; I25.2 Old myocardial infarction; Z20.822 Contact with and (suspected) exposure to COVID-19; Z88.8 Allergy status to other drugs, medicaments and biological substances; Z79.4 Long term (current) use of insulin; Z79.02 Long term (current) use of antithrombotics/antiplatelets; Z79.82 Long term (current) use of aspirin; Z79.899 Other long term (current) drug therapy
CPT/HCPCS: 36415; 73630; 80048; 80053; 80202; 82565; 82947; 83036; 83605; 83735; 85025; 85610; 85652; 86140; 87040; 87635; 93926; 93971; 94660; 96361; 96365; 96375; 99285; J1650; J2543; J3370

== ENCOUNTER 2022-01-29 21:24 | Emergency (ER) | payer OTHER, SELFPAY ==
[2022-01-29 21:26] VITALS: BP 144/40; PULSE 69; RESP 18; TEMP 36.8; O2SAT 100; BMI 40.9
[2022-01-29 21:46] LABS: Basophils Absolute Auto 0.1 X10*3/uL (0.0-0.2); Basophils Percent Auto 0.6 % (0-2); Eosinophils Absolute Auto 0.3 X10*3/uL (0.0-0.4); Eosinophils Percent Auto 3.2 % (0-4); Hemoglobin 12.7 g/dl (12.0-16.0); Imm Gran Abs Auto 0.02 X10*3/uL (0.00-0.03); Imm Gran Pct Auto 0.2 % (0.0-0.4); Lymphocytes Absolute Auto 3.1 X10*3/uL (1.2-4.9); Lymphocytes Percent Auto 32.9 % (20-40); MANUAL DIFF FLAG NO; Mean Corpuscular HGB Conc 31.8 g/dl (31.0-35.0); Mean Corpuscular Hemoglobin 29.2 pg (27.0-33.0); Mean Platelet Volume 11.2 fL (9.4-12.3); Monocytes Absolute Auto 0.9 X10*3/uL (0.1-1.2); Monocytes Percent Auto 9.6 % (2-11); Neutrophils Percent Auto 53.5 % (45-73); Platelet Count 198 X10*3/uL (160-400); Red Blood Count 4.35 X10*6/uL (4.20-5.50); Red Cell Distribution Width 13.8 % (11.0-16.0); White Blood Count 9.4 X10*3/uL (4.8-10.8)
[2022-01-29 22:15] LABS: Alanine Aminotransferase 24 U/L (0-31); Albumin Level 4.1 g/dL (3.5-5.0); Alkaline Phosphatase 66 U/L (39-117); Anion Gap 18 (12-20); Aspartate Amino Transferase 25 U/L (5-31); Bilirubin Total 0.2 mg/dL (0.0-1.0); Blood Urea Nitrogen 45 mg/dL (9-16); Calcium 10.1 mg/dL (8.4-10.2); Carbon Dioxide 21 mmol/L (22-29); Chloride 103 mmol/L (96-108); Creatinine Clr Calc Pharmacy 32.4; Estimated Glomerular Filt Rate 25; Glucose Random 144 mg/dL (60-115); Potassium 5.3 mmol/L (3.3-5.1); Sodium 137 mmol/L (135-145); Total Protein 8.4 g/dL (6.5-8.0)
--- NOTE | 2022-01-29 22:50 | ED_ITS ---
HPI - Extremity Injury (Lower) General Chief Complaint: Extremity Injury, Lower Stated Complaint: right foot ..4 toes discolored Time Seen by Provider: 01/29/22 22:04 Source: patient, family and production planning manager Mode of arrival: ambulatory History of Present Illness HPI Narrative: 61-year-old female presents with concerns regarding the 4th toe of her right foot, stating that she was recently discharge in sent for wound care, the daughter has some concerns regarding the color and appearance of the toe. patient denies any fever or chills, denies any shortness of breath or chest pain/ palpitations. The daughter states that she has had 1 visit with the wound care center and then has an appointment on Monday for both ultrasound to evalua te blood supply as well as an appointment with [facility]. Related Data Home Medications Medication Instructions Recorded Confirmed blood sugar diagnostic #10 ea 02/24/20 12/06/21 insulin regular hum U-500 conc 500 0 - 450 unit subcut DAILY PRN for 02/24/20 01/21/22 unit/mL subcutaneous soln insulin pump clopidogrel 75 mg tablet (Plavix) 75 mg PO DAILY 08/10/21 01/21/22 dapagliflozin 10 mg tablet 10 mg PO DAILY 10/12/21 01/21/22 (Farxiga) furosemide 40 mg tablet 40 mg PO DAILY 12/06/21 01/21/22 gabapentin 300 mg capsule 300 mg PO BID 01/19/22 01/21/22 amitriptyline 25 mg tablet 1 tab PO BEDTIME 01/21/22 01/21/22 Previous Rx's Medication Instructions Recorded Shower Chair #1 ea 10/27/20 walker #1 ea 10/27/20 spironolactone 25 mg tablet 25 mg PO DAILY 90 days #90 tabs 02/19/21 allopurinol 300 mg tablet 300 mg PO DAILY #30 tabs 03/18/21 aspirin 81 mg tablet,delayed 81 mg PO DAILY #30 tabs 03/18/21 release cholecalciferol (vitamin D3) 50 50 mcg PO DAILY 90 days #90 caps 03/18/21 mcg (2,000 unit) capsule lisinopril 5 mg tablet 5 mg PO DAILY 90 days #90 tabs 03/18/21 rosuvastatin 40 mg tablet 40 mg PO DAILY 90 days #90 tabs 03/18/21 sennosides 8.6 mg tablet (Senna 17.2 mg PO BEDTIME PRN 06/07/21 Laxative) constipation 30 days #60 tabs ferrous sulfate 325 mg (65 mg 325 mg PO BID #60 tabs 08/10/21 iron) tablet ascorbic acid (vitamin C) 500 mg 500 mg PO DAILY 90 days #90 caps 08/13/21 capsule amlodipine 5 mg tablet 5 mg PO DAILY 90 days #90 tabs 10/25/21 lactulose 10 gram/15 mL oral 10 g (15 mL) PO BEDTIME PRN 10/25/21 solution constipation 30 days #450 mL metoprolol tartrate 25 mg tablet 50 mg PO BID 90 days #360 tabs 12/25/21 doxycycline hyclate 100 mg capsule 100 mg PO BID #28 caps 01/24/22 Allergies Allergy/AdvReac Type Severity Reaction Status Date / Time lactose Allergy Intermediate Vomiting Verified 01/19/22 12:21 amlodipine Allergy Mild leg edema Verified 01/19/22 12:21 liraglutide [From VICTOZA] Allergy Mild VOMITING RUBI Verified 01/19/22 12:21 Review of Systems Review of Systems: Pertinent positives and negatives as stated HPI 10 point review of systems otherwise negative. [facility] Past Medical History Source: nursing notes reviewed Medical History Arthritis Asthma CAD (coronary artery disease) Cerebrovascular accident (CVA) due to occlusion of left middle cerebral artery CKD (chronic kidney disease) CKD (chronic kidney disease) stage 4, GFR 15-29 ml/min Congestive heart failure Diabetes Gout Hypercholesteremia Hypertension Lumbar degenerative disc disease BRYNN (obstructive sleep apnea) Right hemiparesis Sinusitis Skin lesion Stroke Surgical History H/O colonoscopy H/O right breast biopsy History of bilateral tubal ligation History of cataract surgery History of coronary angioplasty with insertion of stent History of esophagogastroduodenoscopy (EGD) History of heart surgery Family History Family History Father Stroke Mother Myocardial infarction Paternal Uncle Cancer Social History Social History Household Members: Family Housing: House Are you a primary women's health care nurse practitioner to a significant other at home: No Do you presently have visiting nurse or other home services: Yes Alcohol intake: never Patient Tobacco Use Status: Never used Tobacco e-Cigarette/Vaping Use: Never Used Second Hand Smoke Exposure: No Advance Directives: Yes Advance Directives on File: Yes Advance Directives Date on File: 01/25/22 service: No Current occupational status: disabled Sexual orientation: Straight/Heterosexual Gender identity: Female Cognitive needs: Yes Hearing needs: No Vision needs: No Physical Exam Vital Signs: Vital Signs: Last Vital Signs Temp 98.2 F 01/29/22:26 Pulse 69 01/29/22:26 Resp 18 01/29/22: BP 144/40 H 01/29/22: Pulse Ox 100 01/29/22: O2 Del Method 01/29/22:26 BMI result Body Mass Index 40.9 VITAL SIGNS: Reviewed. GENERAL: Well developed, well nourished, in no acute distress. HEAD: Normocephalic/atraumatic EYES: PERRLA, EOMI OROPHARYNX: no oral lesions noted, posterior pharynx clear LUNGS: Normal breath sounds. No adventitious sounds or accessory muscle use. SpO2<100> CARDIOVASCULAR: Regular rate and rhythm without noted murmurs, no JVD or lower extremity edema. ABDOMEN: Soft, non-tender, non-distended with bowel sounds. MUSCULOSKELETAL: No tenderness, deformities, or effusions noted on gross inspection. EXTREMITIES: No cyanosis, clubbing or edema; RIGHT FOOT: Fourth toe with obvious discoloration and swelling, it appears to be necrotic, otherwise remaining toes are without acute findings, foot is warm SKIN: Inspection of the skin reveals no rashes NEUROLOGIC: Alert and oriented x 4. Strength and sensation to light touch were grossly intact x 4. 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 The daughter and the patient were reassured that she is getting seen and evaluated as appropriate, she should continue with her antibiotics and unfortunately will likely lose her toe. She is otherwise discharged home in stable condition. MDM - Extremity Injury (Lower) Lab Data Result diagrams: 01/29/22 21:40 01/29/22 21:40 Labs: Lab Results 01/29/22 01/29/22 Range/Units 21:40 21:40 WBC 9.4 (4.8-10.8) X10*3/uL RBC 4.35 (4.20-5.50) X10*6/uL Hgb 12.7 (12.0-16.0) g/dl Hct 40.0 (37.0-47.0) % MCV 92.0 (80.0-98.0) fL MCH 29.2 (27.0-33.0) pg MCHC 31.8 (31.0-35.0) g/dl RDW 13.8 (11.0-16.0) % Plt Count 198 (160-400) X10*3/uL MPV 11.2 (9.4-12.3) fL Immature Gran % (Auto) 0.2 (0.0-0.4) % Neut % (Auto) 53.5 (45-73) % Lymph % (Auto) 32.9 (20-40) % Floyd % (Auto) 9.6 (2-11) % Eos % (Auto) 3.2 (0-4) % Baso % (Auto) 0.6 (0-2) % Lymph # (Auto) 3.1 (1.2-4.9) X10*3/uL Floyd # (Auto) 0.9 (0.1-1.2) X10*3/uL Eos # (Auto) 0.3 (0.0-0.4) X10*3/uL Baso # (Auto) 0.1 (0.0-0.2) X10*3/uL Abs Immat Gran (auto) 0.02 (0.00-0.03) X10*3/uL Absolute Neuts (auto) 5.0 (2.0-8.3) x10*3/uL Absolute Nucleated RBC 0.000 (0.0-0.012) X10*3/uL Nucleated RBC % (auto) 0.0 (0.0-0.2) /100WBC Sodium 137 (135-145) mmol/L Potassium 5.3 H (3.3-5.1) mmol/L Chloride 103 (96-108) mmol/L Carbon Dioxide 21 L (22-29) mmol/L Anion Gap 18 (12-20) BUN 45 H (9-16) mg/dL Creatinine 2.06 H (0.5-1.4) mg/dL Estim Creat Clear Calc 32.4 Estimated GFR 25 Random Glucose 144 H (60-115) mg/dL Calcium 10.1 D (8.4-10.2) mg/dL Total Bilirubin 0.2 (0.0-1.0) mg/dL AST 25 (5-31) U/L ALT 24 (0-31) U/L Alkaline Phosphatase 66 (39-117) U/L Total Protein 8.4 H (6.5-8.0) g/dL Albumin 4.1 (3.5-5.0) g/dL Discharge Plan Discharge Clinical Impression: Toe necrosis, PAD (peripheral artery disease) Patient Disposition: Home, Self-Care Instructions: Diabetic Foot Ulcers (ED), Foot Care for People with Diabetes (ED), Diabetes and Your Skin (ED), Chronic Wounds (ED) Additional Instructions: 1. Reanudar todos los medicamentos caseros seg?n lo prescrito. 2. complete todo el curso de prateek antibi?ticos. 3. Contin?e con prateek citas programadas el lunes por la ma?shara No dude en volver a la lexie de emergencias si tiene alg?n empeoramiento de prateek s?ntomas. Prescriptions: No Action (DME) Shower Chair Misc See Rx Instructions .ROUTE .MEDSUPPLY Qty: 1 0RF Rx Instructions: As directed (DME) walker Misc See Rx Instructions .ROUTE .MEDSUPPLY Qty: 1 0RF Rx Instructions: with seat and wheels spironolactone 25 mg tablet 25 mg PO DAILY 90 Days Qty: 90 5RF sennosides [Senna Laxative] 8.6 mg tablet 17.2 mg PO BEDTIME PRN (Reason: constipation) 30 Days Qty: 60 5RF ascorbic acid (vitamin C) 500 mg capsule 500 mg PO DAILY 90 Days Qty: 90 3RF lactulose 10 gram/15 mL solution 10 g PO BEDTIME PRN (Reason: constipation) 30 Days Qty: 450 2RF amlodipine 5 mg tablet 5 mg PO DAILY 90 Days Qty: 90 3RF Rx Instructions: Reduction in dose metoprolol tartrate 25 mg tablet 50 mg PO BID 90 Days Qty: 360 3RF clopidogrel [Plavix] 75 mg tablet 75 mg PO DAILY ferrous sulfate 325 mg (65 mg iron) tablet 325 mg PO BID Qty: 60 3RF amitriptyline 25 mg tablet 1 tab PO BEDTIME doxycycline hyclate 100 mg capsule 100 mg PO BID Qty: 28 0RF allopurinol 300 mg tablet 300 mg PO DAILY Qty: 30 6RF aspirin 81 mg tablet,delayed release (DR/EC) 81 mg PO DAILY Qty: 30 6RF cholecalciferol (vitamin D3) 50 mcg (2,000 unit) capsule 50 mcg PO DAILY 90 Days Qty: 90 2RF lisinopril 5 mg tablet 5 mg PO DAILY 90 Days Qty: 90 3RF Hold Instructions: Resume on 01/24/22. please repeat bmp and will need nephrology clearence before starting lisinopril rosuvastatin 40 mg tablet 40 mg PO DAILY 90 Days Qty: 90 3RF furosemide 40 mg tablet 40 mg PO DAILY Hold Instructions: Resume on 01/31/22. hold and repeat bmp ,follow up with nephrology before staring lasix. insulin regular hum U-500 conc 500 unit/mL solution 0 - 450 unit subcut DAILY PRN (Reason: for insulin pump) (DME) blood sugar diagnostic Strip See Rx Instructions Not Applicable .MEDSUPPLY Qty: 10 Rx Instructions: As directed gabapentin 300 mg capsule 300 mg PO BID Farxiga 10 mg tablet 10 mg PO DAILY Referrals: Shara Verdugo MD [Primary Care Provider] - Josiah Baires MD [Physician] - Print Language: Greenlandic
[2022-01-29 23:03] VITALS: BP 126/37; PULSE 64; RESP 12; TEMP 37.1; O2SAT 97
--- NOTE | 2022-01-29 23:15 | PC.NURSE ---
Discharge instructions provided to pt. Pt verbalizes understanding. Reports 0/10 pain. No apparent distress noted.
== END 2022-01-29 23:16 | disposition home or self-care (01) ==
PROVIDERS: Emergency Provider Student in an Organized Health Care Education/Training Program; PCP Internal Medicine
DX: E11.52 Type 2 diabetes mellitus with diabetic peripheral angiopathy with gangrene (principal); I73.9 Peripheral vascular disease, unspecified; E11.22 Type 2 diabetes mellitus with diabetic chronic kidney disease; I13.0 Hypertensive heart and chronic kidney disease with heart failure and stage 1 through stage 4 chronic kidney disease, or unspecified chronic kidney disease; N18.4 Chronic kidney disease, stage 4 (severe); I50.9 Heart failure, unspecified; Z79.4 Long term (current) use of insulin
CPT/HCPCS: 36415; 80053; 85025; 99283; 99284

== ENCOUNTER 2022-01-31 12:12 | Outpatient (REF) | payer OTHER, SELFPAY ==
[2022-01-31 12:32] LABS: MANUAL DIFF FLAG NO
[2022-01-31 13:33] LABS: Basophils Absolute Auto 0.1 X10*3/uL (0.0-0.2); Basophils Percent Auto 0.6 % (0-2); Eosinophils Absolute Auto 0.2 X10*3/uL (0.0-0.4); Eosinophils Percent Auto 2.9 % (0-4); Hematocrit 38.4 % (37.0-47.0); Hemoglobin 12.1 g/dl (12.0-16.0); Imm Gran Abs Auto 0.03 X10*3/uL (0.00-0.03); Imm Gran Pct Auto 0.4 % (0.0-0.4); Lymphocytes Percent Auto 35.7 % (20-40); Mean Corpuscular HGB Conc 31.5 g/dl (31.0-35.0); Mean Corpuscular Hemoglobin 29.7 pg (27.0-33.0); Mean Corpuscular Volume 94.3 fL (80.0-98.0); Mean Platelet Volume 11.5 fL (9.4-12.3); Monocytes Absolute Auto 0.8 X10*3/uL (0.1-1.2); Monocytes Percent Auto 9.3 % (2-11); Neutrophils Absolute Auto 4.2 x10*3/uL (2.0-8.3); Neutrophils Percent Auto 51.1 % (45-73); Platelet Count 197 X10*3/uL (160-400); Red Blood Count 4.07 X10*6/uL (4.20-5.50); White Blood Count 8.3 X10*3/uL (4.8-10.8)
[2022-01-31 13:52] LABS: Creatinine Urine 53.24 mg/dL; Microalbum/Creatinine Ratio Ur 176.5 ug/mg cr
[2022-01-31 13:59] LABS: Alanine Aminotransferase 21 U/L (0-31); Albumin Level 3.8 g/dL (3.5-5.0); Alkaline Phosphatase 57 U/L (39-117); Anion Gap 14 (12-20); Aspartate Amino Transferase 19 U/L (5-31); Bilirubin Total < 0.2 mg/dL (0.0-1.0); Blood Urea Nitrogen 36 mg/dL (9-16); Calcium 9.9 mg/dL (8.4-10.2); Carbon Dioxide 24 mmol/L (22-29); Chloride 104 mmol/L (96-108); Cholesterol 94 mg/dL; Estimated Glomerular Filt Rate 26; Glucose Fasting 160 mg/dL (60-99); HDL Cholesterol 19 mg/dL; Iron 70 mcg/dL (30-160); LDL Cholesterol Calculated 30 mg/dl; Percent Iron Saturation 24 % (15-50); Potassium 5.3 mmol/L (3.3-5.1); Sodium 137 mmol/L (135-145); Total Iron Binding Capacity 287 mcg/dL (228-428); Total Protein 7.8 g/dL (6.5-8.0); Triglycerides 227 mg/dL; Unsaturated Iron Binding 217 ug/dL; Uric Acid 6.6 mg/dL (2.4-5.7)
[2022-01-31 14:11] LABS: Vitamin D 25-OH Total 32.4 ng/mL (>30)
[2022-02-03 10:56] LABS: NT-proBNP 302 pg/mL
== END 2022-01-31 12:13 | disposition home or self-care (01) ==
LOC: HO.LAB 12:12
PROVIDERS: PCP Internal Medicine; Visit Provider Internal Medicine
DX: E78.5 Hyperlipidemia, unspecified (principal); D64.9 Anemia, unspecified; M10.9 Gout, unspecified; E55.9 Vitamin D deficiency, unspecified; E11.22 Type 2 diabetes mellitus with diabetic chronic kidney disease; N18.4 Chronic kidney disease, stage 4 (severe); I50.22 Chronic systolic (congestive) heart failure
CPT/HCPCS: 36415; 80048; 80053; 80061; 82043; 82306; 83540; 83880; 84550; 85025

== ENCOUNTER 2022-02-03 06:15 | Emergency (ER) | payer OTHER, SELFPAY ==
--- NOTE | ~2022-02-03 | CT_ITS ---
EXAMINATION: CT HEAD WITHOUT CONTRAST CLINICAL INFORMATION: Change in mental status. Rule out bleed or stroke. COMPARISON: MR angiography brain 10/30/2020. CT head 04/10/2019. TECHNIQUE: Contiguous axial imaging was performed from the skull base to vertex without intravenous administration of contrast. This CT examination was performed using dose optimization techniques as appropriate, variously including the following: *Automated exposure control *Adjustment of mA and/or kV according to patient size (this includes techniques or standardized protocols for targeted exams where dose is matched to indication/reason for exam; i.e. extremities or head) *Use of iterative reconstruction technique DLP: 716 mGy-cm FINDINGS: No cranial hemorrhage, tumors or acute infarcts are noted. Focal periventricular hypodensity and ex vacuo dilatation is noted in association with the frontal horn of the left lateral ventricle as identified on the comparison CT from 04/10/2019. Asymmetric parenchymal volume loss of the right cerebellar hemispheres unchanged. 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 Focal hypodensity is noted in the posterior limb of the left internal capsule and left thalamus unchanged compared with 04/10/2019 consistent with a chronic lacunar infarct. Elsewhere, mild diffuse commensurate prominence of ventricles and sulci is unchanged compared with 04/10/2019. Bilateral ocular lens extractions are visualized. No significant opacification of the visualized paranasal sinuses, mastoid air cells and middle ear cavities. CT/CT head/brain wo IV con IMPRESSION: *No acute intracranial abnormalities. *Chronic ischemic changes stable compared with 04/10/2019 as detailed above.
--- NOTE | ~2022-02-03 | XR_ITS ---
EXAMINATION: XR CHEST CLINICAL INFORMATION: Change in mental status. Rule out pneumonia. Chest radiograph. CT angiography chest 12/18/2020. COMPARISON: None TECHNIQUE: Frontal view of the chest was obtained. FINDINGS: Multiple external artifacts overlie the thorax. Multiple unfractured median sternotomy wires and mediastinal internal fixation hardware devices are again noted. Low lung volumes are present with the fifth anterior rib segments terminating projection with the lung bases. Making allowances for low lung volumes, the cardiac silhouette is normal in size. Multiple mediastinal vascular clips are visualized. Making allowances for low lung volumes, no effusions or pneumothoraces are identified. No focal pulmonary consolidation is noted. XR/XR chest 1V IMPRESSION: Low lung volumes; otherwise, no acute cardiopulmonary abnormalities. No evidence of active pulmonary edema or pneumonia.
[2022-02-03 06:18] VITALS: BP 120/60; BP 135/54; PULSE 55; PULSE 60; RESP 16; TEMP 36.3; O2SAT 100; O2SAT 98; BMI 41.0
--- NOTE | 2022-02-03 06:18 | PC.NURSE ---
Pt. on classroom monitor at this time
--- NOTE | 2022-02-03 06:23 | ED.AMS ---
HPI - Altered Mental Status General Chief Complaint: Altered Mental Status Stated Complaint: AMS Time Seen by Provider: 02/03/22 06:16 Source: patient and family Mode of arrival: EMS Limitations: language barrier (South African speaking only, daughter speaks South African and Maldivian, warehouse material handler used) History of Present Illness HPI narrative: 7-year-old female who is brought to the emergency department for evaluation of lethargy that started this morning. Patient woke up approximately 30 minutes prior to coming to the emergency department and was lethargic. Paramedics found that the patient had a low glucose she was given orange juice, repeat point of care glucose was 85. According to the patient's daughter the patient has an insulin pump and the basal rate was increased recently since the patient was having high glucose especially at night. The patient had less food intake over the last 24 hours despite having a higher basal rate. The daughter states this morning the patient was lethargic and she was concerned that the patient's blood sugar was low therefore she called an ambulance. The patient denied being ill in any way, she denied fever, chills, rhinorrhea, sore throat, cough, chest pain, shortness of breath, nausea, vomiting, diarrhea, dysuria, frequency, change in bowel movements. MD complaint: altered mental status Onset (ago): minute(s) (30) Timing confirmed by: family member Severity: moderate Consistency of symptoms: constant Context: diabetes Associated symptoms: denies other symptoms Treatments prior to arrival: other (Carlton juice) Related Data Home Medications Medication Instructions Recorded Confirmed blood sugar diagnostic #10 ea 02/24/20 01/31/22 insulin regular hum U-500 conc 500 0 - 450 unit subcut DAILY PRN for 02/24/20 01/31/22 unit/mL subcutaneous soln insulin pump clopidogrel 75 mg tablet (Plavix) 75 mg PO DAILY 08/10/21 01/31/22 dapagliflozin 10 mg tablet 10 mg PO DAILY 10/12/21 01/31/22 (Farxiga) furosemide 40 mg tablet 40 mg PO DAILY 12/06/21 01/31/22 gabapentin 300 mg capsule 300 mg PO BID 01/19/22 01/31/22 amitriptyline 25 mg tablet 1 tab PO BEDTIME 01/21/22 01/31/22 Previous Rx's Medication Instructions Recorded Shower Chair #1 ea 10/27/20 walker #1 ea 10/27/20 spironolactone 25 mg tablet 25 mg PO DAILY 90 days #90 tabs 02/19/21 allopurinol 300 mg tablet 300 mg PO DAILY #30 tabs 03/18/21 aspirin 81 mg tablet,delayed 81 mg PO DAILY #30 tabs 03/18/21 release cholecalciferol (vitamin D3) 50 50 mcg PO DAILY 90 days #90 caps 03/18/21 mcg (2,000 unit) capsule lisinopril 5 mg tablet 5 mg PO DAILY 90 days #90 tabs 03/18/21 rosuvastatin 40 mg tablet 40 mg PO DAILY 90 days #90 tabs 03/18/21 sennosides 8.6 mg tablet (Senna 17.2 mg PO BEDTIME PRN 06/07/21 Laxative) constipation 30 days #60 tabs ferrous sulfate 325 mg (65 mg 325 mg PO BID #60 tabs 08/10/21 iron) tablet ascorbic acid (vitamin C) 500 mg 500 mg PO DAILY 90 days #90 caps 08/13/21 capsule amlodipine 5 mg tablet 5 mg PO DAILY 90 days #90 tabs 10/25/21 lactulose 10 gram/15 mL oral 10 g (15 mL) PO BEDTIME PRN 10/25/21 solution constipation 30 days #450 mL metoprolol tartrate 25 mg tablet 50 mg PO BID 90 days #360 tabs 12/25/21 doxycycline hyclate 100 mg capsule 100 mg PO BID #28 caps 01/24/22 Allergies Allergy/AdvReac Type Severity Reaction Status Date / Time lactose Allergy Intermediate Vomiting Verified 01/31/22 14:54 amlodipine Allergy Mild leg edema Verified 01/31/22 14:54 liraglutide [From VICTOZA] Allergy Mild VOMITING RUBI Verified 01/31/22 14:54 Review of Systems Review of Systems: Yes all other systems are reviewed and are negative [facility] Past Medical History [facility] Narrative: Social history: She lives at home with her daughter. She denies tobacco and alcohol use. She denies drug use. Medical History Arthritis Asthma CAD (coronary artery disease) Cerebrovascular accident (CVA) due to occlusion of left middle cerebral artery CKD (chronic kidney disease) CKD (chronic kidney disease) stage 4, GFR 15-29 ml/min Congestive heart failure Diabetes Gout Hypercholesteremia Hypertension Lumbar degenerative disc disease BRYNN (obstructive sleep apnea) Right hemiparesis Sinusitis Skin lesion Stroke Surgical History H/O colonoscopy H/O right breast biopsy History of bilateral tubal ligation History of cataract surgery History of coronary angioplasty with insertion of stent History of esophagogastroduodenoscopy (EGD) History of heart surgery Family History Family History Father Stroke Mother Myocardial infarction Paternal Uncle Cancer Social History Social History Household Members: Family Housing: House Are you a primary memory care director to a significant other at home: No Do you presently have visiting nurse or other home services: Yes Alcohol intake: never Patient Tobacco Use Status: Never used Tobacco e-Cigarette/Vaping Use: Never Used Second Hand Smoke Exposure: No Use of substances other than those prescribed or required for medical reasons: No Advance Directives: Yes Advance Directives on File: Yes Advance Directives Date on File: 01/25/22 Patient : No service: No Current occupational status: disabled Sexual orientation: Straight/Heterosexual Gender identity: Female Cognitive needs: Yes Hearing needs: No Vision needs: No Physical Exam ED Vital Signs: Vital Signs - 24 hr 02/03/22 06:18 02/03/22 06:30 02/03/22 07:22 Temperature 97.4 F 97.4 F Pulse Rate 55 55 53 Respiratory Rate 16 16 12 Blood Pressure 135/54 L 135/54 L 116/48 L Pulse Oximetry 98 100 99 Oxygen Delivery Method Room Air Room Air Room Air BMI result Body Mass Index 41.0 Const General: cooperative and no acute distress Orientation/consciousness: oriented to person and oriented to place Limitations: no limitations HENMT Head: Yes normal to inspection, Yes normocephalic and Yes atraumatic Ears: external ears normal General nose exam: Normal external nose present Face and sinus: Yes normal facial exam Mouth: Normal oral and palatal mucosa present Throat: Yes posterior oropharynx normal Eyes General: appearance normal, both eyes and all related structures Pupils: Equal, round and reactive pupils present Neck Neck: Yes normal visual inspection, Yes no lymphadenopathy, Yes trachea midline and Yes supple Chest Chest palpation & inspection: normal inspection of the chest and normal palpation of entire chest wall Resp Effort & Inspection: normal respiratory effort and able to speak in complete sentences Auscultation: clear to auscultation bilaterally Cardio Rate: regular rate Rhythm: regular rhythm Heart sounds: S1 normal heart sound present, S2 normal heart sound present and no murmurs GI Inspection: Yes normal to inspection Palpation (GI): Soft to palpation, nontender and no guarding Auscultation: normal bowel sounds General: Yes no CVA tenderness Back/Spine/Pelvis Back: no CVA tenderness Skin General skin exam: no rashes or lesions noted Neuro General: oriented to person and oriented to place Cranial nerves: Yes CN's II-XII intact bilaterally and Yes Equal, round and reactive pupils present Cognition (Neuro): normal cognition Motor exam (neuro): 5/5 motor strength present throughout Extrem Other: Chronic ulcer to the tip of the right 4th toe, the tip of the toe slightly swollen but there is no erythema or increased warmth. No erythema to the foot or tenderness to the foot Psych Appearance: grossly normal Speech and movement: Normal speech and movement present Affect: normal affect Attitude: cooperative Thought process: Normal thought process present Thought content: Normal thought content present Course Course Course Narrative: 61-year-old female who is brought to the emergency department for evaluation of altered mental status secondary to low sugar. The patient did have a recent increase in her basal metabolic insulin rate and may have eaten last food yesterday, she was not ill in any other way. The patient's physical examination did reveal chronic right 4th toe ulcer which does not appear to be infected. Patient's laboratory evaluation was consistent with her chronic kidney disease. The patient was able to eat food here in the emergency department. The patient is here with her daughter and the patient will be discharged in the care her daughter. MDM - Altered Mental Status Lab Data Result diagrams: 02/03/22 06:46 02/03/22 06:46 Labs: Lab Results 02/03/22 02/03/22 02/03/22 Range/Units 06:26 06:46 06:46 WBC (4.8-10.8) X10*3/uL RBC (4.20-5.50) X10*6/uL Hgb (12.0-16.0) g/dl Hct (37.0-47.0) % MCV (80.0-98.0) fL MCH (27.0-33.0) pg MCHC (31.0-35.0) g/dl RDW (11.0-16.0) % Plt Count (160-400) X10*3/uL MPV (9.4-12.3) fL Immature Gran % (Auto) (0.0-0.4) % Neut % (Auto) (45-73) % Lymph % (Auto) (20-40) % [place] % (Auto) (2-11) % Eos % (Auto) (0-4) % Baso % (Auto) (0-2) % Lymph # (Auto) (1.2-4.9) X10*3/uL [place] # (Auto) (0.1-1.2) X10*3/uL Eos # (Auto) (0.0-0.4) X10*3/uL Baso # (Auto) (0.0-0.2) X10*3/uL Abs Immat Gran (auto) (0.00-0.03) X10*3/uL Absolute Neuts (auto) (2.0-8.3) x10*3/uL Absolute Nucleated RBC (0.0-0.012) X10*3/uL Nucleated RBC % (auto) (0.0-0.2) /100WBC PT 12.3 (10.0-13.1) SEC INR 1.1 (0.9-1.1) APTT 28.2 (26.0-36.4) SEC Sodium 136 (135-145) mmol/L Potassium 4.4 (3.3-5.1) mmol/L Chloride 101 (96-108) mmol/L Carbon Dioxide 27 (22-29) mmol/L Anion Gap 12 (12-20) BUN 35 H (9-16) mg/dL Creatinine 1.56 H (0.5-1.4) mg/dL Estim Creat Clear Calc 42.8 Estimated GFR 34 POC Glucose 84 (60-115) mg/dL Random Glucose 68 (60-115) mg/dL Lactic Acid (0.5-2.0) mmol/L Calcium 10.0 (8.4-10.2) mg/dL Total Bilirubin 0.2 (0.0-1.0) mg/dL AST 20 (5-31) U/L ALT 17 (0-31) U/L Alkaline Phosphatase 57 (39-117) U/L Troponin I High Sens (<3.5-17.0) ng/L Total Protein 8.1 H (6.5-8.0) g/dL Albumin 4.0 (3.5-5.0) g/dL Lipase 10 (8-78) U/L Ethyl Alcohol < 10 mg/dL COVID-19 ([facility]) (Negative) COVID-19 Clin Com 02/03/22 02/03/22 02/03/22 Range/Units 06:46 06:46 06:46 WBC (4.8-10.8) X10*3/uL RBC (4.20-5.50) X10*6/uL Hgb (12.0-16.0) g/dl Hct (37.0-47.0) % MCV (80.0-98.0) fL MCH (27.0-33.0) pg MCHC (31.0-35.0) g/dl RDW (11.0-16.0) % Plt Count (160-400) X10*3/uL MPV (9.4-12.3) fL Immature Gran % (Auto) (0.0-0.4) % Neut % (Auto) (45-73) % Lymph % (Auto) (20-40) % [place] % (Auto) (2-11) % Eos % (Auto) (0-4) % Baso % (Auto) (0-2) % Lymph # (Auto) (1.2-4.9) X10*3/uL [place] # (Auto) (0.1-1.2) X10*3/uL Eos # (Auto) (0.0-0.4) X10*3/uL Baso # (Auto) (0.0-0.2) X10*3/uL Abs Immat Gran (auto) (0.00-0.03) X10*3/uL Absolute Neuts (auto) (2.0-8.3) x10*3/uL Absolute Nucleated RBC (0.0-0.012) X10*3/uL Nucleated RBC % (auto) (0.0-0.2) /100WBC PT (10.0-13.1) SEC INR (0.9-1.1) APTT (26.0-36.4) SEC Sodium (135-145) mmol/L Potassium (3.3-5.1) mmol/L Chloride (96-108) mmol/L Carbon Dioxide (22-29) mmol/L Anion Gap (12-20) BUN (9-16) mg/dL Creatinine (0.5-1.4) mg/dL Estim Creat Clear Calc Estimated GFR POC Glucose (60-115) mg/dL Random Glucose (60-115) mg/dL Lactic Acid 0.9 (0.5-2.0) mmol/L Calcium (8.4-10.2) mg/dL Total Bilirubin (0.0-1.0) mg/dL AST (5-31) U/L ALT (0-31) U/L Alkaline Phosphatase (39-117) U/L Troponin I High Sens 13.1 (<3.5-17.0) ng/L Total Protein (6.5-8.0) g/dL Albumin (3.5-5.0) g/dL Lipase (8-78) U/L Ethyl Alcohol mg/dL COVID-19 ([facility]) Negative (Negative) COVID-19 Clin Com See Note 02/03/22 Range/Units 06:46 WBC 7.8 (4.8-10.8) X10*3/uL RBC 4.39 (4.20-5.50) X10*6/uL Hgb 12.9 (12.0-16.0) g/dl Hct 40.1 (37.0-47.0) % MCV 91.3 (80.0-98.0) fL MCH 29.4 (27.0-33.0) pg MCHC 32.2 (31.0-35.0) g/dl RDW 13.8 (11.0-16.0) % Plt Count 209 (160-400) X10*3/uL MPV 10.7 (9.4-12.3) fL Immature Gran % (Auto) 0.3 (0.0-0.4) % Neut % (Auto) 46.1 (45-73) % Lymph % (Auto) 37.2 (20-40) % [place] % (Auto) 11.6 H (2-11) % Eos % (Auto) 4.0 (0-4) % Baso % (Auto) 0.8 (0-2) % Lymph # (Auto) 2.9 (1.2-4.9) X10*3/uL [place] # (Auto) 0.9 (0.1-1.2) X10*3/uL Eos # (Auto) 0.3 (0.0-0.4) X10*3/uL Baso # (Auto) 0.1 (0.0-0.2) X10*3/uL Abs Immat Gran (auto) 0.02 (0.00-0.03) X10*3/uL Absolute Neuts (auto) 3.6 (2.0-8.3) x10*3/uL Absolute Nucleated RBC 0.000 (0.0-0.012) X10*3/uL Nucleated RBC % (auto) 0.0 (0.0-0.2) /100WBC PT (10.0-13.1) SEC INR (0.9-1.1) APTT (26.0-36.4) SEC Sodium (135-145) mmol/L Potassium (3.3-5.1) mmol/L Chloride (96-108) mmol/L Carbon Dioxide (22-29) mmol/L Anion Gap (12-20) BUN (9-16) mg/dL Creatinine (0.5-1.4) mg/dL Estim Creat Clear Calc Estimated GFR POC Glucose (60-115) mg/dL Random Glucose (60-115) mg/dL Lactic Acid (0.5-2.0) mmol/L Calcium (8.4-10.2) mg/dL Total Bilirubin (0.0-1.0) mg/dL AST (5-31) U/L ALT (0-31) U/L Alkaline Phosphatase (39-117) U/L Troponin I High Sens (<3.5-17.0) ng/L Total Protein (6.5-8.0) g/dL Albumin (3.5-5.0) g/dL Lipase (8-78) U/L Ethyl Alcohol mg/dL COVID-19 ([facility]) (Negative) COVID-19 Clin Com Discharge Plan Discharge Clinical Impression: Hypoglycemia, Acute alteration in mental status Patient Disposition: Home, Self-Care Additional Instructions: Your blood work was unremarkable, your kidney function is abnormal but it is unchanged from your previous numbers which is reassuring. At this time I believe that your low sugar was due to not eating enough food and may be having too much insulin delivered by your insulin pump. I want you to increase the amount of food that you eat today and follow your blood sugars carefully. You should discuss changes in your insulin pump basal rate with your drivers license examiner. Follow-up with your doctor in 2 days. Please return to the emergency department if your symptoms get worse or if you develop any symptoms that are concerning to you. Prescriptions: No Action (DME) Shower Chair Misc See Rx Instructions .ROUTE .MEDSUPPLY Qty: 1 0RF Rx Instructions: As directed (DME) walker Misc See Rx Instructions .ROUTE .MEDSUPPLY Qty: 1 0RF Rx Instructions: with seat and wheels spironolactone 25 mg tablet 25 mg PO DAILY 90 Days Qty: 90 5RF sennosides [Senna Laxative] 8.6 mg tablet 17.2 mg PO BEDTIME PRN (Reason: constipation) 30 Days Qty: 60 5RF ascorbic acid (vitamin C) 500 mg capsule 500 mg PO DAILY 90 Days Qty: 90 3RF lactulose 10 gram/15 mL solution 10 g PO BEDTIME PRN (Reason: constipation) 30 Days Qty: 450 2RF amlodipine 5 mg tablet 5 mg PO DAILY 90 Days Qty: 90 3RF Rx Instructions: Reduction in dose metoprolol tartrate 25 mg tablet 50 mg PO BID 90 Days Qty: 360 3RF clopidogrel [Plavix] 75 mg tablet 75 mg PO DAILY ferrous sulfate 325 mg (65 mg iron) tablet 325 mg PO BID Qty: 60 3RF amitriptyline 25 mg tablet 1 tab PO BEDTIME doxycycline hyclate 100 mg capsule 100 mg PO BID Qty: 28 0RF allopurinol 300 mg tablet 300 mg PO DAILY Qty: 30 6RF aspirin 81 mg tablet,delayed release (DR/EC) 81 mg PO DAILY Qty: 30 6RF cholecalciferol (vitamin D3) 50 mcg (2,000 unit) capsule 50 mcg PO DAILY 90 Days Qty: 90 2RF lisinopril 5 mg tablet 5 mg PO DAILY 90 Days Qty: 90 3RF Hold Instructions: Resume on 01/24/22. please repeat bmp and will need nephrology clearence before starting lisinopril rosuvastatin 40 mg tablet 40 mg PO DAILY 90 Days Qty: 90 3RF furosemide 40 mg tablet 40 mg PO DAILY Hold Instructions: Resume on 01/31/22. hold and repeat bmp ,follow up with nephrology before staring lasix. insulin regular hum U-500 conc 500 unit/mL solution 0 - 450 unit subcut DAILY PRN (Reason: for insulin pump) (DME) blood sugar diagnostic Strip See Rx Instructions Not Applicable .MEDSUPPLY Qty: 10 Rx Instructions: As directed gabapentin 300 mg capsule 300 mg PO BID Farxiga 10 mg tablet 10 mg PO DAILY
--- NOTE | 2022-02-03 06:24 | ECG_ITS ---
Test Reason : ALTERED MENTAL STATUS Blood Pressure : / mmHG Vent. Rate : 054 BPM Atrial Rate : 054 BPM P-R Int : 216 ms QRS Dur : 148 ms QT Int : 506 ms P-R-T Axes : 053 -26 149 degrees QTc Int : 479 ms Sinus bradycardia with 1st degree A-V block Left bundle branch block Abnormal ECG When compared with ECG of 06-JUN-2020 09:08, VT interval has increased Heart rate has decreased Referred By: Rickey Amaro Electronically Signed By:LUMA BRADSHAW
--- NOTE | 2022-02-03 06:27 | PC.NURSE ---
Re-checked pt.'s POC = result 84
--- NOTE | 2022-02-03 06:28 | PC.NURSE ---
This RN and Camila Amaro MD at bedside with geometry teacher at this time
--- NOTE | 2022-02-03 06:28 | PC.NURSE ---
Pt. states to Camila Amaro MD that she has an insulin pump
[2022-02-03 06:30] VITALS: BP 135/54; PULSE 55; RESP 16; TEMP 36.3; O2SAT 100
[2022-02-03 06:30] LABS: Glucose, Whole Blood 84 mg/dL (60-115)
--- NOTE | 2022-02-03 06:47 | PC.NURSE ---
COVID swab and labs sent as ordered. Still awaiting urine specimen at this time.
[2022-02-03 06:52] LABS: MANUAL DIFF FLAG NO
[2022-02-03 06:55] LABS: Basophils Absolute Auto 0.1 X10*3/uL (0.0-0.2); Basophils Percent Auto 0.8 % (0-2); Eosinophils Absolute Auto 0.3 X10*3/uL (0.0-0.4); Hematocrit 40.1 % (37.0-47.0); Hemoglobin 12.9 g/dl (12.0-16.0); Imm Gran Abs Auto 0.02 X10*3/uL (0.00-0.03); Imm Gran Pct Auto 0.3 % (0.0-0.4); Lymphocytes Absolute Auto 2.9 X10*3/uL (1.2-4.9); Lymphocytes Percent Auto 37.2 % (20-40); Mean Corpuscular HGB Conc 32.2 g/dl (31.0-35.0); Mean Corpuscular Hemoglobin 29.4 pg (27.0-33.0); Mean Corpuscular Volume 91.3 fL (80.0-98.0); Mean Platelet Volume 10.7 fL (9.4-12.3); Monocytes Absolute Auto 0.9 X10*3/uL (0.1-1.2); Monocytes Percent Auto 11.6 % (2-11); Neutrophils Absolute Auto 3.6 x10*3/uL (2.0-8.3); Neutrophils Percent Auto 46.1 % (45-73); Platelet Count 209 X10*3/uL (160-400); Red Blood Count 4.39 X10*6/uL (4.20-5.50); Red Cell Distribution Width 13.8 % (11.0-16.0); White Blood Count 7.8 X10*3/uL (4.8-10.8)
[2022-02-03 07:02] LABS: INTERNATIONAL NORM RATIO 1.1 (0.9-1.1); Prothrombin Time 12.3 SEC (10.0-13.1)
[2022-02-03 07:04] LABS: Lactic Acid 0.9 mmol/L (0.5-2.0); Partial Thromboplastin Time 28.2 SEC (26.0-36.4)
[2022-02-03 07:10] LABS: Alanine Aminotransferase 17 U/L (0-31); Alkaline Phosphatase 57 U/L (39-117); Anion Gap 12 (12-20); Aspartate Amino Transferase 20 U/L (5-31); Bilirubin Total 0.2 mg/dL (0.0-1.0); Blood Urea Nitrogen 35 mg/dL (9-16); Carbon Dioxide 27 mmol/L (22-29); Chloride 101 mmol/L (96-108); Creatinine Clr Calc Pharmacy 42.8; Estimated Glomerular Filt Rate 34; Ethanol < 10 mg/dL; Glucose Random 68 mg/dL (60-115); Lipase 10 U/L (8-78); Potassium 4.4 mmol/L (3.3-5.1); Sodium 136 mmol/L (135-145); Total Protein 8.1 g/dL (6.5-8.0)
[2022-02-03 07:12] LABS: COVID-19 Test Negative (Negative); IDNOW Serial# 55D5AD1C
[2022-02-03 07:15] LABS: Troponin-I High Sensitivity 13.1 ng/L (<3.5-17.0)
[2022-02-03 07:22] VITALS: BP 116/48; PULSE 53; RESP 12; O2SAT 99
[2022-02-03 10:06] LABS: Glucose, Whole Blood 144 mg/dL (60-115)
[2022-02-03 10:18] VITALS: BP 135/49; PULSE 62; RESP 14; TEMP 37; O2SAT 98
--- NOTE | 2022-02-03 10:18 | PC.NURSE ---
alert, nad, poc 144, skin wpd, assisted to bathroom for ua, pt was eating crackers and pudding, dtr at bedside
[2022-02-03 10:37] LABS: Appearance Urine Clear; Color Urine Yellow; Glucose Urine UA 500 mg/dL (Negative); Leukocyte Esterase Urine Small (1+) (Negative); Nitrite Urine Negative (Negative); PH 5.5 (5.0-9.0); Specific Gravity - Urine 1.015 (1.005-1.025); UMIC TRIGGER UACC YES; Urine Blood Trace (Negative); Urine Ketones Negative (Negative); Urine Protein 30 (1+) mg/dL (Neg-Trace)
[2022-02-03 11:16] LABS: Bacteria Urine None Seen (None Seen); Hyaline Casts Urine 0-2 /LPF (0-2); RBC Urine 0-2 /HPF (0-2); Squamous Epithelial Cell Urine 0-2 /HPF (0-2); UACC Culture Trigger YES
== END 2022-02-03 11:02 | disposition home or self-care (01) ==
PROVIDERS: Emergency Provider Emergency Medicine Emergency Medical Services; PCP Internal Medicine
DX: R41.82 Altered mental status, unspecified (principal); E11.649 Type 2 diabetes mellitus with hypoglycemia without coma; E11.22 Type 2 diabetes mellitus with diabetic chronic kidney disease; I13.0 Hypertensive heart and chronic kidney disease with heart failure and stage 1 through stage 4 chronic kidney disease, or unspecified chronic kidney disease; N18.4 Chronic kidney disease, stage 4 (severe); I50.9 Heart failure, unspecified; E78.00 Pure hypercholesterolemia, unspecified; Z20.822 Contact with and (suspected) exposure to COVID-19; Z96.41 Presence of insulin pump (external) (internal); Z79.4 Long term (current) use of insulin; Z79.899 Other long term (current) drug therapy; Z79.82 Long term (current) use of aspirin; Z79.02 Long term (current) use of antithrombotics/antiplatelets
CPT/HCPCS: 36415; 70450; 71045; 80053; 81001; 82077; 82947; 83605; 83690; 84484; 85025; 85610; 85730; 87086; 87635; 93005; 99284; 99285

== ENCOUNTER → 2022-02-08 09:48 | Outpatient (BNVA) | payer OTHER, SELFPAY | PROVIDERS: PCP Internal Medicine; Visit Provider Surgery Vascular Surgery | DX: I73.9 Peripheral vascular disease, unspecified (principal) | CPT/HCPCS: 99212 ==

== ENCOUNTER 2022-02-17 06:01 | Day surgery (SDC) | payer OTHER, SELFPAY ==
[2022-02-17] VITALS (7 sets, daily range): BP systolic 115–153; BP diastolic 47–69; PULSE 55–61; RESP 16–18; TEMP 36.1–36.8; O2SAT 97–99; BMI 35.5
[2022-02-17 06:26] LABS: Glucose, Whole Blood 169 mg/dL (60-115)
[2022-02-17 06:49] LABS: MANUAL DIFF FLAG NO
[2022-02-17] MEDS: 0.9 % Sodium Chloride 1,000 ML 100 ML IVCONT (07:01)
[2022-02-17 07:03] LABS: Basophils Percent Auto 0.5 % (0-2); Eosinophils Absolute Auto 0.3 X10*3/uL (0.0-0.4); Eosinophils Percent Auto 3.3 % (0-4); Hemoglobin 12.8 g/dl (12.0-16.0); Imm Gran Abs Auto 0.01 X10*3/uL (0.00-0.03); Imm Gran Pct Auto 0.1 % (0.0-0.4); Lymphocytes Absolute Auto 2.7 X10*3/uL (1.2-4.9); Lymphocytes Percent Auto 34.6 % (20-40); Mean Corpuscular HGB Conc 31.2 g/dl (31.0-35.0); Mean Corpuscular Hemoglobin 29.2 pg (27.0-33.0); Mean Corpuscular Volume 93.4 fL (80.0-98.0); Mean Platelet Volume 11.3 fL (9.4-12.3); Monocytes Absolute Auto 0.7 X10*3/uL (0.1-1.2); Monocytes Percent Auto 8.7 % (2-11); Neutrophils Absolute Auto 4.2 x10*3/uL (2.0-8.3); Neutrophils Percent Auto 52.8 % (45-73); Platelet Count 189 X10*3/uL (160-400); Red Blood Count 4.39 X10*6/uL (4.20-5.50); White Blood Count 7.9 X10*3/uL (4.8-10.8)
[2022-02-17 07:12] LABS: Blood Urea Nitrogen 27 mg/dL (9-16); Creatinine Clr Calc Pharmacy 44.5; Estimated Glomerular Filt Rate 33
--- NOTE | 2022-02-17 09:40 | P.OP_ITS ---
Operative Note Operative Note Date of Service: 02/17/22 Narrative: Angiogram report from [facility] Preoperative diagnosis: Atherosclerosis of right lower extremity with nonhealing ulcer Postoperative diagnosis: Same Procedure: 1. Ultrasound-guided left common femoral access 2. Aortogram with right lower extremity runoff 3. Right SFA atherectomy and plasty Surgeon:Josiah Baires M.D., FACS, RPVI Fishing Lure Assembler:None Anesthesia: Local with moderate conscious sedation. Total intraservice moderate sedation time was 56 minutes. I monitored the patient's level of consciousness and physiologic status continuously throughout the procedure. Specimens:none Drains:none Estimated blood loss: Less than 10 ml Implant: Medtronic Impact DCB 6 x 40 Indications: 61-year-old female with nonhealing right great toe ulcer. She has had noninvasive testing concerning for SFA disease. She now presents for endovascular intervention. The patient has signed the informed consent after reviewing risks, complications, benefits, and alternatives previously discussed with the patient. The patient was given the opportunity to ask any additional questions or voice any concerns. All questions were answered to the patient's satisfaction. Procedure in detail: Patient was brought to the angiography suite prior to which a time-out was called for patient identification and site verification. Bilateral groins were prepped and draped in the standard surgical fashion. Unde r ultrasound guidance left common femoral was punctured with micro puncture needle and wire. Subsequently a precision 4 [place] sheath was then placed. Bentson wire was advanced to the level of the aorta. 4 [place] Flush catheter was brought up and parked at the level of the renal arteries. Aortogram was then undertaken. Catheter was brought down to the level of the iliac bifurcation. Iliacs were subsequently imaged. Catheter was then brought in up and over to the right side SFA. Runoff study was then undertaken. It was recognized that she had 2 focal will stenotic lesions in the SFA. At this time 5000 units of systemic heparin was administered. After 5 minutes of circulation time and up and over 6 [place] sheath was placed over a 035 glidewire Advantage. Once this was accomplished we advanced a trail Blazer catheter. This was placed into the popliteal and we confirmed true lumen by instilling contrast. Once this was accomplished we exchanged out for a 6 [place] spider wire. There were 2 focal areas 1 in the mid SFA and 1 at Jose's canal where we performed at atherectomy. This was performed with a Hawk 1 atherectomy device with multiple unidirectional passes. Once this was accomplished completion angiogram did demonstrate some residual stenosis. We plasty this area with a 6 x 40 DCB balloon. This was brought into position in under 3 minutes and insufflated for a total of 3 minutes in duration. We approached the distal 1 1st and then we in a similar fashion we did a now other 6 x 40 DCB balloon in the mid thigh. Once this was accomplished completion angiogram demonstrated excellent result catheter wire sheath was brought back to the ipsilateral side StarClose closure device was then deployed. Patient tolerated the procedure well returned to recovery with stable vitals. Interpretation of films: 1. Ultrasound demonstrates appropriate femoral puncture. Image of which was saved. 2. Aortogram demonstrates appropriate caliber aorta. Minimal disease. Appropriate take-off of the renals. 3. Iliac images demonstrate no significant disease 4. Right Leg Common femoral artery: No significant disease Profundus Femoris: No significant disease Superficial femoral artery: Multiple mild to moderate stenosis high-grade focal stenosis in mid SFA and a 2nd high-grade stenosis at Jose's canal Popliteal artery (p1,p2,p3): Patent Anterior tibial artery: Patent but diminutive Peroneal artery: Patent and dominant runoff vessel Posterior tibial artery: Occluded Dorsalis pedis/plantar arch: Incomplete but partially present Conclusion: 1. Successful atherectomy and plasty of right SFA. This should improve flow to enhance healing of the foot 2. Anticoagulation status: Continue aspirin and Plavix for 6 months This note is constructed using voice recognition software. While every effort has been made to ensure accuracy, wire weaver helper errors may have been included. Thank you for allowing me to participate in the care of your patient. Yours sincerely, Josiah Baires MD, FACS, R.P.V.I.
== END 2022-02-17 11:10 | disposition home or self-care (01) ==
PROVIDERS: PCP Internal Medicine; Visit Provider Surgery Vascular Surgery
DX: E11.51 Type 2 diabetes mellitus with diabetic peripheral angiopathy without gangrene (principal); L97.519 Non-pressure chronic ulcer of other part of right foot with unspecified severity; I70.235 Atherosclerosis of native arteries of right leg with ulceration of other part of foot; E11.22 Type 2 diabetes mellitus with diabetic chronic kidney disease; I13.0 Hypertensive heart and chronic kidney disease with heart failure and stage 1 through stage 4 chronic kidney disease, or unspecified chronic kidney disease; N18.9 Chronic kidney disease, unspecified; I50.9 Heart failure, unspecified; Z79.4 Long term (current) use of insulin; Z79.899 Other long term (current) drug therapy; Z88.8 Allergy status to other drugs, medicaments and biological substances
CPT/HCPCS: 36415; 37225; 75630; 76937; 82565; 82947; 84520; 85025; 99152; 99153; C1714; C1725; C1760; C1769; C1884; C1887; J2250; J3010; Q9967

== ENCOUNTER → 2022-02-22 13:53 | Outpatient (REF) | payer OTHER, SELFPAY ==
--- NOTE | 2022-02-22 13:57 | ECG_ITS ---
Test Reason : preop Blood Pressure : / mmHG Vent. Rate : 067 BPM Atrial Rate : 067 BPM P-R Int : 202 ms QRS Dur : 144 ms QT Int : 456 ms P-R-T Axes : 058 -10 148 degrees QTc Int : 481 ms Normal sinus rhythm Left bundle branch block Abnormal ECG When compared with ECG of 03-FEB-2022 06:38, No significant change was found Referred By: Shara Grimes Electronically Signed By:URIAH VICTOR MD
== END ==
LOC: HO.CARD 13:53
PROVIDERS: PCP Internal Medicine; Visit Provider Internal Medicine
DX: Z01.818 Encounter for other preprocedural examination (principal)
CPT/HCPCS: 93005

== ENCOUNTER → 2022-03-03 13:46 | Outpatient (BNVA) | payer OTHER, SELFPAY | PROVIDERS: PCP Internal Medicine; Visit Provider Surgery Vascular Surgery | DX: I73.9 Peripheral vascular disease, unspecified (principal) | CPT/HCPCS: 99212 ==

== ENCOUNTER → 2022-04-05 09:53 | Outpatient (BNVA) | payer OTHER, SELFPAY | PROVIDERS: PCP Internal Medicine; Visit Provider Surgery Vascular Surgery | DX: L97.519 Non-pressure chronic ulcer of other part of right foot with unspecified severity (principal); I73.9 Peripheral vascular disease, unspecified | CPT/HCPCS: 99212 ==

== ENCOUNTER → 2022-05-03 11:14 | Outpatient (BNVA) | payer OTHER, SELFPAY | PROVIDERS: PCP Internal Medicine; Referring Provider Internal Medicine; Visit Provider Internal Medicine Cardiovascular Disease | DX: I50.32 Chronic diastolic (congestive) heart failure (principal); I25.10 Atherosclerotic heart disease of native coronary artery without angina pectoris | CPT/HCPCS: 99212 ==

== ENCOUNTER 2022-06-15 18:20 | Emergency (ER) | payer OTHER, SELFPAY ==
[2022-06-15] VITALS (8 sets, daily range): BP systolic 99–129; BP diastolic 38–74; PULSE 68–75; RESP 16; TEMP 36.7–36.8; O2SAT 95–96; BMI 41.3
--- NOTE | ~2022-06-15 | XR_ITS ---
EXAMINATION: XR CHEST CLINICAL INFORMATION: Chest pain COMPARISON: Chest x-ray 02/03/2022 TECHNIQUE: 2 views of the chest were obtained. FINDINGS: Status post median sternotomy. Surgical clips over the cardiac silhouette. Cardiac mediastinal contours are normal. The heart size is normal. No acute airspace disease. No pulmonary vascular congestion. There is no pleural effusion or pneumothorax. Multilevel degenerative spondylosis spine. XR/XR chest 2V IMPRESSION: No acute abnormality of the chest.
--- NOTE | 2022-06-15 19:47 | ECG_ITS ---
Test Reason : SYNCOPEE Blood Pressure : / mmHG Vent. Rate : 071 BPM Atrial Rate : 071 BPM P-R Int : 198 ms QRS Dur : 140 ms QT Int : 442 ms P-R-T Axes : 050 -17 155 degrees QTc Int : 480 ms Normal sinus rhythm Left bundle branch block Abnormal ECG When compared with ECG of 22-FEB-2022 13:55, No significant change was found Referred By: Everardo Rubalcava Electronically Signed By:Jaiden Gurrola
--- NOTE | 2022-06-15 20:00 | MHC.EDTECH ---
pt 1998 rounding done ,vitals sign taken ,ekg done ,pt was hooked up to pvc monitor ,blood draw and send to lab ,pt got change change into hospital attire.
[2022-06-15 20:26] LABS: MANUAL DIFF FLAG NO
[2022-06-15 20:29] LABS: Basophils Percent Auto 0.3 % (0-2); Eosinophils Absolute Auto 0.2 X10*3/uL (0.0-0.4); Eosinophils Percent Auto 1.7 % (0-4); Hematocrit 40.5 % (37.0-47.0); Hemoglobin 12.7 g/dl (12.0-16.0); Imm Gran Abs Auto 0.05 X10*3/uL (0.00-0.03); Imm Gran Pct Auto 0.5 % (0.0-0.4); Lymphocytes Absolute Auto 2.1 X10*3/uL (1.2-4.9); Mean Corpuscular HGB Conc 31.4 g/dl (31.0-35.0); Mean Corpuscular Hemoglobin 28.8 pg (27.0-33.0); Mean Corpuscular Volume 91.8 fL (80.0-98.0); Mean Platelet Volume 10.2 fL (9.4-12.3); Monocytes Absolute Auto 1.1 X10*3/uL (0.1-1.2); Monocytes Percent Auto 11.4 % (2-11); Neutrophils Absolute Auto 6.5 x10*3/uL (2.0-8.3); Neutrophils Percent Auto 65.1 % (45-73); Platelet Count 224 X10*3/uL (160-400); Red Blood Count 4.41 X10*6/uL (4.20-5.50)
[2022-06-15 20:35] LABS: INTERNATIONAL NORM RATIO 1.1 (0.9-1.1); Prothrombin Time 12.1 SEC (10.0-13.1)
[2022-06-15 20:38] LABS: Partial Thromboplastin Time 26.6 SEC (26.0-36.4)
[2022-06-15 20:46] LABS: Alanine Aminotransferase 18 U/L (0-31); Albumin Level 3.7 g/dL (3.5-5.0); Alkaline Phosphatase 54 U/L (39-117); Anion Gap 15 (12-20); Aspartate Amino Transferase 15 U/L (5-31); Bilirubin Total 0.5 mg/dL (0.0-1.0); Blood Urea Nitrogen 29 mg/dL (9-16); Calcium 9.5 mg/dL (8.4-10.2); Carbon Dioxide 31 mmol/L (22-29); Chloride 95 mmol/L (96-108); Creatinine Clr Calc Pharmacy 28.4; Estimated Glomerular Filt Rate 22; Glucose Random 126 mg/dL (60-115); Magnesium 2.3 mg/dL (1.6-2.6); Phosphorus 3.5 mg/dL (2.7-4.5); Potassium 4.5 mmol/L (3.3-5.1); Sodium 136 mmol/L (135-145); Total Protein 7.6 g/dL (6.5-8.0)
[2022-06-15 20:53] LABS: Troponin-I High Sensitivity 13.5 ng/L (<3.5-17.0)
--- NOTE | 2022-06-15 20:54 | ED_ITS ---
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 patient reports that she was diagnosed with COVID-19 a few weeks ago and has had increased weakness since then. She states that for the last 3 days she has had lower abdominal pain and burning with urination. She believes that she has a UTI patient reports that she has not been able to go to the doctor due to her recent COVID diagnosis patient reports that she woke up from a nap today and felt lightheaded she walked into the kitchen where her daughter was and was placed in a seated position in a chair per the patient's daughter, the patient passed out for a minute. the patient currently has no complaints except for lower abdominal pain denies any fevers, chills she denied any chest pain with the symptoms Related Data Home Medications Medication Instructions Recorded Confirmed blood sugar diagnostic #10 ea 02/24/20 05/03/22 insulin regular hum U-500 conc 500 0 - 450 unit subcut DAILY PRN for 02/24/20 05/03/22 unit/mL subcutaneous soln insulin pump dapagliflozin 10 mg tablet 10 mg PO DAILY 10/12/21 05/03/22 ([facility]) furosemide 40 mg tablet 40 mg PO DAILY 12/06/21 05/03/22 gabapentin 300 mg capsule 300 mg PO BID 01/19/22 05/03/22 Previous Rx's Medication Instructions Recorded Shower Chair #1 ea 10/27/20 walker #1 ea 10/27/20 lisinopril 5 mg tablet 5 mg PO DAILY 90 days #90 tabs 03/18/21 ascorbic acid (vitamin C) 500 mg 500 mg PO DAILY 90 days #90 caps 08/13/21 capsule amlodipine 5 mg tablet 5 mg PO DAILY 90 days #90 tabs 10/25/21 lactulose 10 gram/15 mL oral 10 g (15 mL) PO BEDTIME PRN 10/25/21 solution constipation 30 days #450 mL metoprolol tartrate 25 mg tablet 50 mg PO BID 90 days #360 tabs 12/25/21 allopurinol 300 mg tablet 300 mg PO DAILY #30 tabs 02/08/22 sennosides 8.6 mg tablet (Senna 17.2 mg PO BEDTIME PRN 02/08/22 Laxative) constipation 30 days #60 tabs clopidogrel 75 mg tablet (Plavix) 75 mg PO DAILY #90 tabs 02/17/22 aspirin 81 mg tablet,delayed 81 mg PO DAILY #30 tabs 03/25/22 release cholecalciferol (vitamin D3) 50 50 mcg PO DAILY 90 days #90 caps 03/25/22 mcg (2,000 unit) capsule spironolactone 25 mg tablet 25 mg PO DAILY #90 tabs 03/28/22 amitriptyline 10 mg tablet 10 mg PO BEDTIME 90 days #90 tabs 05/03/22 rosuvastatin 40 mg tablet 40 mg PO DAILY 90 days #90 tabs 05/03/22 ferrous sulfate 325 mg (65 mg 325 mg PO BID #60 tabs 05/20/22 iron) tablet cefpodoxime 200 mg tablet 200 mg PO BID 7 days #14 tabs 06/15/22 Allergies Allergy/AdvReac Type Severity Reaction Status Date / Time lactose Allergy Intermediate Vomiting Verified 04/05/22 09:59 amlodipine Allergy Mild leg edema Verified 04/05/22 09:59 liraglutide [From VICTOZA] Allergy Mild VOMITING RUBI Verified 04/05/22 09:59 Review of Systems Constitutional: Constitutional: Reports as per HPI, Denies chills and Denies fatigue ENT: Denies sore throat Cardiovascular: Cardiovascular: Denies chest pain, Reports palpitations and Reports other ( reports syncope) Respiratory: Respiratory: Denies cough Gastrointestinal: Gastrointestinal: Reports abdominal pain, Denies constipation, Reports dyspepsia, Denies diarrhea, Reports nausea, Reports vomiting and Denies hematemesis Genitourinary: Genitourinary: Denies dysuria Musculoskeletal: Musculoskeletal: Denies back pain, Denies myalgias and Denies arthralgias Endocrine: Endocrine: Denies fatigue and Reports palpitations [facility] Past Medical History Medical History (Updated 06/15/22 @ 22:15 by Everardo Rubalcava) Arthritis Asthma CAD (coronary artery disease) Cerebrovascular accident (CVA) due to occlusion of left middle cerebral artery CKD (chronic kidney disease) CKD (chronic kidney disease) stage 4, GFR 15-29 ml/min Diabetes Gout Hypercholesteremia Hypertension Lumbar degenerative disc disease BRYNN (obstructive sleep apnea) Right hemiparesis Sinusitis Skin lesion Stroke Surgical History H/O colonoscopy H/O right breast biopsy History of bilateral tubal ligation History of cataract surgery History of coronary angioplasty with insertion of stent History of esophagogastroduodenoscopy (EGD) History of heart surgery Family History Family History Father Stroke Mother Myocardial infarction Paternal Uncle Cancer Social History Social History Household Members: Family Housing: House Are you a primary palliative care physician to a significant other at home: No Do you presently have visiting nurse or other home services: Yes Alcohol intake: never Patient Tobacco Use Status: Never used Tobacco Smoked in Last 30 Days: No e-Cigarette/Vaping Use: Never Used Second Hand Smoke Exposure: No Use of substances other than those prescribed or required for medical reasons: No Advance Directives: No Advance Directives Information Provided: No Advance Directives Date on File: 01/25/22 Patient : No service: No Current occupational status: disabled Sexual orientation: Straight/Heterosexual Gender identity: Female Cognitive needs: Yes Hearing needs: No Vision needs: No Physical Exam ED Vital Signs: Vital Signs - 24 hr 06/15/22 18:59 06/15/22 19:09 06/15/22 20:00 Temperature 98.2 F 98.0 F Pulse Rate 68 69 Respiratory Rate 16 16 Blood Pressure 129/38 L 103/54 L Pulse Oximetry 96 95 96 Oxygen Delivery Method Room Air Room Air Room Air 06/15/22 22:00 06/15/22 22:03 06/15/22 22:04 Temperature 98.2 F Pulse Rate 74 74 75 Respiratory Rate 16 Blood Pressure 99/52 L 99/52 L 106/49 L Pulse Oximetry 95 Oxygen Delivery Method Room Air 06/15/22 22:06 Temperature Pulse Rate 75 Respiratory Rate Blood Pressure 99/46 L Pulse Oximetry Oxygen Delivery Method BMI result Body Mass Index 41.3 Const General: cooperative, healthy appearing, comfortable, no acute distress, alert, awake and Physically active Nutritional Appearance: thin Orientation/consciousness: patient oriented x3 Limitations: no limitations HENMT Head: Yes normocephalic and Yes atraumatic Face and sinus: Yes face symmetric Mouth: Normal oral and palatal mucosa present and tongue normal Teeth and gingiva: dentition normal Throat: Yes posterior oropharynx normal ( without erythema, tonsillar exudates or edema), No peritonsillar mass, No uvula laterally displaced and No uvular edema Neck Neck: Yes normal visual inspection, Yes full ROM, No no meningeal signs, Yes supple and No lymphadenopathy Chest Chest palpation & inspection: normal inspection of the chest, normal palpation of entire chest wall and no crepitus Resp Effort & Inspection: normal respiratory effort and able to speak in complete sentences Auscultation: clear to auscultation bilaterally Cardio Rate: regular rate Rhythm: regular rhythm GI Inspection: Yes normal to inspection and Yes other ( soft, obese abdomen) Palpation (GI): Soft to palpation, Tenderness to palpation present (GI) suprapubicly and no guarding Auscultation: normoactive bowel sounds Skin General skin exam: no rashes or lesions noted Neuro General: patient oriented x3 and No no meningeal signs Course Reevaluation(s) Reevaluation #1: Patient reports feeling much better, she time no longer dizzy. We will get orthostatic vital signs done upon done. The patient does have significant bacturia and symptomatic with lower abdominal pain and dysuria. We will treat with cephalosporins Time: 22:13 Medical Decision Making Medical Decision Making MDM Narrative: 61-year-old male with multiple comorbidities presents for evaluation reported syncopal episode at home. Currently she is asymptomatic without chest pain, shortness of breath, lightheadedness. She does complain of lower abdominal pain and UTI symptoms for last 3 days. She may have had a vasovagal episode after standing up too quickly when she reports being in for now. Her blood pressure is 103/58, otherwise unremarkable. She is not tachycardic. We will check basic labs, UA to evaluate for infection. There is no evidence of sepsis time. The patient had no chest pain, no EKG findings to suggest acute ischemia or ACS. Will also check orthostatics. the patient does have chronic kidney disease and her creatinine of 2.27 is at or slightly above her increasing grossly. Her BUN is actually decreased from her baseline at 29. Electrolytes are reassuring. patient's troponin was negative and she has not had any chest pain Differential Diagnosis Differential Diagnoses: The differential diagnosis associated with the presentation includes ( vasovagal syncope, orthostasis, UTI, sepsis, hypotension, SARAH) Lab Data 06/15/22 20:06/15/22 20: Labs: Lab Results 06/15/22 06/15/22 06/15/22 Range/Units 20: 20: 20: WBC 10.0 (4.8-10.8) X10*3/uL RBC 4.41 (4.20-5.50) X10*6/uL Hgb 12.7 (12.0-16.0) g/dl Hct 40.5 (37.0-47.0) % MCV 91.8 (80.0-98.0) fL MCH 28.8 (27.0-33.0) pg MCHC 31.4 (31.0-35.0) g/dl RDW 14.0 (11.0-16.0) % Plt Count 224 (160-400) X10*3/uL MPV 10.2 (9.4-12.3) fL Immature Gran % (Auto) 0.5 H (0.0-0.4) % Neut % (Auto) 65.1 (45-73) % Lymph % (Auto) 21.0 (20-40) % [place] % (Auto) 11.4 H (2-11) % Eos % (Auto) 1.7 (0-4) % Baso % (Auto) 0.3 (0-2) % Lymph # (Auto) 2.1 (1.2-4.9) X10*3/uL [place] # (Auto) 1.1 (0.1-1.2) X10*3/uL Eos # (Auto) 0.2 (0.0-0.4) X10*3/uL Baso # (Auto) 0.0 (0.0-0.2) X10*3/uL Abs Immat Gran (auto) 0.05 H (0.00-0.03) X10*3/uL Absolute Neuts (auto) 6.5 (2.0-8.3) x10*3/uL Absolute Nucleated RBC 0.000 (0.0-0.012) X10*3/uL Nucleated RBC % (auto) 0.0 (0.0-0.2) /100WBC PT 12.1 (10.0-13.1) SEC INR 1.1 (0.9-1.1) APTT 26.6 (26.0-36.4) SEC Sodium 136 (135-145) mmol/L Potassium 4.5 (3.3-5.1) mmol/L Chloride 95 L (96-108) mmol/L Carbon Dioxide 31 H (22-29) mmol/L Anion Gap 15 (12-20) BUN 29 H (9-16) mg/dL Creatinine 2.27 H (0.5-1.4) mg/dL Estim Creat Clear Calc 28.4 Estimated GFR 22 Random Glucose 126 H (60-115) mg/dL Calcium 9.5 (8.4-10.2) mg/dL Phosphorus 3.5 (2.7-4.5) mg/dL Magnesium 2.3 (1.6-2.6) mg/dL Total Bilirubin 0.5 (0.0-1.0) mg/dL AST 15 (5-31) U/L ALT 18 (0-31) U/L Alkaline Phosphatase 54 (39-117) U/L Troponin I High Sens (<3.5-17.0) ng/L Total Protein 7.6 (6.5-8.0) g/dL Albumin 3.7 (3.5-5.0) g/dL Urine Color Urine Appearance Urine pH (5.0-9.0) Ur Specific [place] (1.005-1.025) Urine Protein (Neg-Trace) mg/dL Urine Glucose (UA) (Negative) mg/dL Urine Ketones (Negative) mg/dL Urine Blood (Negative) Urine Nitrite (Negative) Ur Leukocyte Esterase (Negative) Urine RBC (0-2) /HPF Urine WBC (0-5) /HPF Ur Squamous Epith Cells (0-2) /HPF Urine Bacteria (None Seen) Hyaline Casts (0-2) /LPF 06/15/22 06/15/22 Range/Units 20:24 20:55 WBC (4.8-10.8) X10*3/uL RBC (4.20-5.50) X10*6/uL Hgb (12.0-16.0) g/dl Hct (37.0-47.0) % MCV (80.0-98.0) fL MCH (27.0-33.0) pg MCHC (31.0-35.0) g/dl RDW (11.0-16.0) % Plt Count (160-400) X10*3/uL MPV (9.4-12.3) fL Immature Gran % (Auto) (0.0-0.4) % Neut % (Auto) (45-73) % Lymph % (Auto) (20-40) % [place] % (Auto) (2-11) % Eos % (Auto) (0-4) % Baso % (Auto) (0-2) % Lymph # (Auto) (1.2-4.9) X10*3/uL [place] # (Auto) (0.1-1.2) X10*3/uL Eos # (Auto) (0.0-0.4) X10*3/uL Baso # (Auto) (0.0-0.2) X10*3/uL Abs Immat Gran (auto) (0.00-0.03) X10*3/uL Absolute Neuts (auto) (2.0-8.3) x10*3/uL Absolute Nucleated RBC (0.0-0.012) X10*3/uL Nucleated RBC % (auto) (0.0-0.2) /100WBC PT (10.0-13.1) SEC INR (0.9-1.1) APTT (26.0-36.4) SEC Sodium (135-145) mmol/L Potassium (3.3-5.1) mmol/L Chloride (96-108) mmol/L Carbon Dioxide (22-29) mmol/L Anion Gap (12-20) BUN (9-16) mg/dL Creatinine (0.5-1.4) mg/dL Estim Creat Clear Calc Estimated GFR Random Glucose (60-115) mg/dL Calcium (8.4-10.2) mg/dL Phosphorus (2.7-4.5) mg/dL Magnesium (1.6-2.6) mg/dL Total Bilirubin (0.0-1.0) mg/dL AST (5-31) U/L ALT (0-31) U/L Alkaline Phosphatase (39-117) U/L Troponin I High Sens 13.5 (<3.5-17.0) ng/L Total Protein (6.5-8.0) g/dL Albumin (3.5-5.0) g/dL Urine Color Yellow Urine Appearance Turbid Urine pH 5.5 (5.0-9.0) Ur Specific [place] 1.015 (1.005-1.025) Urine Protein 100 (2+) H (Neg-Trace) mg/dL Urine Glucose (UA) >=1000 H (Negative) mg/dL Urine Ketones Negative (Negative) mg/dL Urine Blood Moderate (2+) H (Negative) Urine Nitrite Negative (Negative) Ur Leukocyte Esterase Large (3+) H (Negative) Urine RBC 0-2 (0-2) /HPF Urine WBC >50 H (0-5) /HPF Ur Squamous Epith Cells 0-2 (0-2) /HPF Urine Bacteria 4+ (None Seen) Hyaline Casts 3-5 (0-2) /LPF Discharge Plan Discharge Clinical Impression: Urinary tract infection, Syncope Patient Disposition: Home, Self-Care Instructions: Acute Urinary Retention in Women (ED) Additional Instructions: your workup in the emergency department was significant for a urinary tract infection. your blood work shows a UA be very slightly dehydrated, you can treat this at home with increasing fluid intake take the antibiotic as directed and finished a complete course to treat the urinary tract infection. you may have passed out after standing up too fast due to the urinary tract infection number is called vasovagal syncope. Yourr EKG and remainder of your workup was reassuring Prescriptions: New cefpodoxime 200 mg tablet 200 mg PO BID 7 Days Qty: 14 0RF Rx Instructions: must administer with a meal/food No Action (DME) Shower Chair Misc See Rx Instructions .ROUTE .MEDSUPPLY Qty: 1 0RF Rx Instructions: As directed (DME) [facility] See Rx Instructions .ROUTE .MEDSUPPLY Qty: 1 0RF Rx Instructions: with seat and wheels ascorbic acid (vitamin C) 500 mg capsule 500 mg PO DAILY 90 Days Qty: 90 3RF lactulose 10 gram/15 mL solution 10 g PO BEDTIME PRN (Reason: constipation) 30 Days Qty: 450 2RF amlodipine 5 mg tablet 5 mg PO DAILY 90 Days Qty: 90 3RF Rx Instructions: Reduction in dose metoprolol tartrate 25 mg tablet 50 mg PO BID 90 Days Qty: 360 3RF sennosides [Senna Laxative] 8.6 mg tablet 17.2 mg PO BEDTIME PRN (Reason: constipation) 30 Days Qty: 60 5RF allopurinol 300 mg tablet 300 mg PO DAILY Qty: 30 6RF aspirin 81 mg tablet,delayed release (DR/EC) 81 mg PO DAILY Qty: 30 6RF cholecalciferol (vitamin D3) 50 mcg (2,000 unit) capsule 50 mcg PO DAILY 90 Days Qty: 90 2RF spironolactone 25 mg tablet 25 mg PO DAILY Qty: 90 11RF rosuvastatin 40 mg tablet 40 mg PO DAILY 90 Days Qty: 90 3RF amitriptyline 10 mg tablet 10 mg PO BEDTIME 90 Days Qty: 90 3RF ferrous sulfate 325 mg (65 mg iron) tablet 325 mg PO BID Qty: 60 3RF clopidogrel [Plavix] 75 mg tablet 75 mg PO DAILY Qty: 90 1RF lisinopril 5 mg tablet 5 mg PO DAILY 90 Days Qty: 90 3RF Hold Instructions: Resume on 01/24/22. please repeat bmp and will need nephrology clearence before starting lisinopril furosemide 40 mg tablet 40 mg PO DAILY Hold Instructions: Resume on 01/31/22. hold and repeat bmp ,follow up with nephrology before staring lasix. insulin regular hum U-500 conc 500 unit/mL solution 0 - 450 unit subcut DAILY PRN (Reason: for insulin pump) (DME) blood sugar diagnostic Strip See Rx Instructions Not Applicable .MEDSUPPLY Qty: 10 Rx Instructions: As directed gabapentin 300 mg capsule 300 mg PO BID Farxiga 10 mg tablet 10 mg PO DAILY
[2022-06-15 21:00] LABS: Appearance Urine Turbid; Color Urine Yellow; Glucose Urine UA >=1000 mg/dL (Negative); Leukocyte Esterase Urine Large (3+) (Negative); Nitrite Urine Negative (Negative); PH 5.5 (5.0-9.0); Specific Gravity - Urine 1.015 (1.005-1.025); UMIC TRIGGER UACC YES; Urine Blood Moderate (2+) (Negative); Urine Ketones Negative (Negative); Urine Protein 100 (2+) mg/dL (Neg-Trace)
--- NOTE | 2022-06-15 21:09 | PC.NURSE ---
this rn and applied behavior specialist placed pt on bedpan. urine sample obtained and sent down to lab
[2022-06-15 21:17] LABS: Bacteria Urine 4+ (None Seen); RBC Urine 0-2 /HPF (0-2); Squamous Epithelial Cell Urine 0-2 /HPF (0-2); UACC Culture Trigger YES; WBC Urine >50 /HPF (0-5)
--- NOTE | 2022-06-15 22:00 | MHC.EDTECH ---
pt 2200 rounding vitals sign and orthostatics vitals sign done ,pt daughter at bedside .
--- NOTE | 2022-06-15 22:44 | PC.NURSE ---
skin pwd at discharge. pt daughter at bedside. discharge packet provided to pt. pt verbalized understanding of discharge plan. pt utilized wheelchair at time of discharge
== END 2022-06-15 22:50 | disposition home or self-care (01) ==
PROVIDERS: Physician Assistant; Emergency Provider Emergency Medicine
DX: N39.0 Urinary tract infection, site not specified (principal); B96.20 Unspecified Escherichia coli [E. coli] as the cause of diseases classified elsewhere; R55 Syncope and collapse; E11.22 Type 2 diabetes mellitus with diabetic chronic kidney disease; I13.0 Hypertensive heart and chronic kidney disease with heart failure and stage 1 through stage 4 chronic kidney disease, or unspecified chronic kidney disease; N18.4 Chronic kidney disease, stage 4 (severe); I50.32 Chronic diastolic (congestive) heart failure; E78.00 Pure hypercholesterolemia, unspecified; E66.9 Obesity, unspecified; Z68.41 Body mass index [BMI] 40.0-44.9, adult; Z86.73 Personal history of transient ischemic attack (TIA), and cerebral infarction without residual deficits; Z79.899 Other long term (current) drug therapy; Z79.4 Long term (current) use of insulin; Z79.82 Long term (current) use of aspirin; Z79.02 Long term (current) use of antithrombotics/antiplatelets
CPT/HCPCS: 36415; 71046; 80053; 81001; 83735; 84100; 84484; 85025; 85610; 85730; 87086; 87088; 87186; 93005; 99284; 99285

== ENCOUNTER 2022-06-17 14:22 | Inpatient (IN) | payer OTHER, SELFPAY ==
[2022-06-17] VITALS (8 sets, daily range): BP systolic 99–143; BP diastolic 40–70; PULSE 75–107; RESP 12–24; TEMP 36.6–39.5; O2SAT 94–97; BMI 36.6
--- NOTE | ~2022-06-17 | XR_ITS ---
EXAMINATION: XR CHEST CLINICAL INFORMATION: Question pneumonia COMPARISON: 06/15/2022 TECHNIQUE: Frontal view of the chest was obtained. FINDINGS: Median sternotomy wires appear intact. Surgical clips overlie the mediastinum. Cardiac leads overlie the chest. The lungs are well expanded. There is no focal consolidation, edema, or effusion. No pneumothorax. Right midlung calcified granuloma again noted. The cardiomediastinal silhouette is within normal limits. No acute osseous abnormality. XR/XR chest 1V IMPRESSION: No acute pulmonary disease.
--- NOTE | 2022-06-17 14:34 | ED_ITS ---
HPI - Abdominal Pain General Chief Complaint: Nausea/Vomiting/Diarrhea <KASIE Michelle - Last Filed: 06/17/22 14:41> Stated Complaint: Fever/Vomiting <KASIE Michelle - Last Filed: 06/17/22 14:41> Time Seen by Provider: 06/17/22 16:04 <KASIE Michelle - Last Filed: 06/17/22 14:41> Source: patient <Terri West MD - Last Filed: 06/17/22 22:09> Mode of arrival: ambulatory <Terri West MD - Last Filed: 06/17/22 22:09> Limitations: no limitations <Terri West MD - Last Filed: 06/17/22 22:09> History of Present Illness HPI narrative: Patient comes to the emergency room complaining of fever, nausea and vomiting. Patient states that she was diagnosed with a UTI several days ago and is now on levofloxacin. Patient denies chest pain shortness of breath, abdominal pain flank pain or dysuria. Patient most likely concern about the fever being high. On arrival, patient's temperature was 103.1 degrees <Terri West MD - Last Filed: 06/17/22 22:09> Related Data Home Medications: Home Medications Medication Instructions Recorded Confirmed blood sugar diagnostic #10 ea 02/24/20 05/03/22 insulin regular hum U-500 conc 500 0 - 450 unit subcut DAILY PRN for 02/24/20 06/17/22 unit/mL subcutaneous soln insulin pump dapagliflozin 10 mg tablet 10 mg PO DAILY 10/12/21 06/17/22 ([facility]) furosemide 40 mg tablet 40 mg PO DAILY 12/06/21 06/17/22 gabapentin 300 mg capsule 300 mg PO BID 01/19/22 06/17/22 amitriptyline 25 mg tablet 25 mg PO BEDTIME 06/17/22 06/17/22 ascorbic acid (vitamin C) 500 mg 500 mg PO DAILY 06/17/22 06/17/22 tablet (Vitamin C With Allie Hips) Previous Rx's Medication Instructions Recorded Shower Chair #1 ea 10/27/20 walker #1 ea 10/27/20 lisinopril 5 mg tablet 5 mg PO DAILY 90 days #90 tabs 03/18/21 amlodipine 5 mg tablet 5 mg PO DAILY 90 days #90 tabs 10/25/21 lactulose 10 gram/15 mL oral 10 g (15 mL) PO BEDTIME PRN 10/25/21 solution constipation 30 days #450 mL metoprolol tartrate 25 mg tablet 50 mg PO BID 90 days #360 tabs 12/25/21 allopurinol 300 mg tablet 300 mg PO DAILY #30 tabs 02/08/22 sennosides 8.6 mg tablet (Senna 17.2 mg PO BEDTIME PRN 02/08/22 Laxative) constipation 30 days #60 tabs clopidogrel 75 mg tablet (Plavix) 75 mg PO DAILY #90 tabs 02/17/22 aspirin 81 mg tablet,delayed 81 mg PO DAILY #30 tabs 03/25/22 release cholecalciferol (vitamin D3) 50 50 mcg PO DAILY 90 days #90 caps 03/25/22 mcg (2,000 unit) capsule spironolactone 25 mg tablet 25 mg PO DAILY #90 tabs 03/28/22 rosuvastatin 40 mg tablet 40 mg PO DAILY 90 days #90 tabs 05/03/22 ferrous sulfate 325 mg (65 mg 325 mg PO BID #60 tabs 05/20/22 iron) tablet cefpodoxime 200 mg tablet 200 mg PO BID 7 days #14 tabs 06/15/22 <KASIE Michelle - Last Filed: 06/17/22 14:41> Allergies/Adverse Reactions: Allergies Allergy/AdvReac Type Severity Reaction Status Date / Time lactose Allergy Intermediate Vomiting Verified 04/05/22 09:59 amlodipine Allergy Mild leg edema Verified 04/05/22 09:59 liraglutide [From VICTOZA] Allergy Mild VOMITING RUBI Verified 04/05/22 09:59 <KASIE Michelle - Last Filed: 06/17/22 14:41> Review of Systems Review of Systems Constitutional : No Weight loss, complaining of fever and chills, No Night Sweats, No Fatigue, No Malaise ENT/Mouth : No Hearing loss, No Ear Pain, No Nasal Congestion, No Sinus Pain, No Hoarseness, No sore throat, No Rhinorrhea, No Swallowing Difficulty Eyes: No Eye Pain, No Swelling, No Redness, No Foreign Body, No Discharge, No Vision Changes Cardiovascular : No Chest Pain, No SOB, No Dyspnea on Exertion, No Orthopnea, No Edema, No Palpitations Respiratory : No Cough, No Sputum, No Wheezing, No Smoke Exposure, No Dyspnea Gastrointestinal : No Nausea, No Vomiting, No Diarrhea, No Constipation, No abdominal Pain, No Hematochezia, No Melena Genitourinary : Recovering from a UTI, No Dysuria, No Urinary Frequency, No Hematuria, No Urinary Incontinence, No Urgency, No Flank Pain, No Urinary Flow Changes, No Hesitancy Musculoskeletal : No joint pain, No Myalgias, No Joint Swelling Skin : No Skin Lesions, No rash Neuro : No Weakness, No Numbness, No Paresthesias, No Loss of Consciousness, No Dizziness, No Headache Psych : No Anxiety/Panic, No Depression, No SI/HI/AH/VH, No Social Issues, Heme/Lymph: No Bruising, No Bleeding,No Lymphadenopathy Endocrine : No Polyuria, No Polydipsia, No Temperature Intolerance <Terri West MD - Last Filed: 06/17/22 22:09> [facility] Past Medical History Medical History: Medical History Arthritis Asthma CAD (coronary artery disease) Cerebrovascular accident (CVA) due to occlusion of left middle cerebral artery CKD (chronic kidney disease) CKD (chronic kidney disease) stage 4, GFR 15-29 ml/min Diabetes Gout Hypercholesteremia Hypertension Lumbar degenerative disc disease BRYNN (obstructive sleep apnea) Right hemiparesis Sinusitis Skin lesion Stroke <KASIE Michelle - Last Filed: 06/17/22 14:41> Surgical History: Surgical History H/O colonoscopy H/O right breast biopsy History of bilateral tubal ligation History of cataract surgery History of coronary angioplasty with insertion of stent History of esophagogastroduodenoscopy (EGD) History of heart surgery <KASIE Michelle - Last Filed: 06/17/22 14:41> Family History Family History: Family History Father Stroke Mother Myocardial infarction Paternal Uncle Cancer <KASIE Michelle - Last Filed: 06/17/22 14:41> Social History Social History: Social History Household Members: Family Housing: House Are you a primary care consultant to a significant other at home: No Do you presently have visiting nurse or other home services: Yes Alcohol intake: never Patient Tobacco Use Status: Never used Tobacco e-Cigarette/Vaping Use: Never Used Second Hand Smoke Exposure: No Advance Directives: Yes Advance Directives on File: Yes Advance Directives Date on File: 01/25/22 service: No Current occupational status: disabled Sexual orientation: Straight/Heterosexual Gender identity: Female Cognitive needs: Yes Hearing needs: No Vision needs: No <KASIE Michelle - Last Filed: 06/17/22 14:41> Physical Exam ED Vital Signs: Vital Signs - 24 hr 06/17/22 14:35 06/17/22 15:46 06/17/22 16:19 Temperature 103.1 F H 102.5 F H 100.9 F H Pulse Rate 107 H 99 93 Respiratory Rate 24 H 20 16 Blood Pressure 134/54 L 104/70 99/40 L Pulse Oximetry 97 94 96 Oxygen Delivery Method Room Air Room Air Room Air 06/17/22 16:39 06/17/22 18:00 06/17/22 18:40 Temperature 100.7 F H 99.7 F 99.1 F Pulse Rate 92 89 84 Respiratory Rate 16 16 16 Blood Pressure 109/43 L 119/50 L 106/41 L Pulse Oximetry 95 94 94 Oxygen Delivery Method Room Air Room Air Room Air 06/17/22 20:00 Temperature 98.2 F Pulse Rate 75 Respiratory Rate 16 Blood Pressure 115/48 L Pulse Oximetry 97 Oxygen Delivery Method Room Air BMI result Body Mass Index 36.6 <KASIE Michelle - Last Filed: 06/17/22 14:41> Vital Signs - 24 hr 06/17/22 14:35 06/17/22 15:46 06/17/22 16:19 Temperature 103.1 F H 102.5 F H 100.9 F H Pulse Rate 107 H 99 93 Respiratory Rate 24 H 20 16 Blood Pressure 134/54 L 104/70 99/40 L Pulse Oximetry 97 94 96 Oxygen Delivery Method Room Air Room Air Room Air 06/17/22 16:39 06/17/22 18:00 06/17/22 18:40 Temperature 100.7 F H 99.7 F 99.1 F Pulse Rate 92 89 84 Respiratory Rate 16 16 16 Blood Pressure 109/43 L 119/50 L 106/41 L Pulse Oximetry 95 94 94 Oxygen Delivery Method Room Air Room Air Room Air 06/17/22 20:00 Temperature 98.2 F Pulse Rate 75 Respiratory Rate 16 Blood Pressure 115/48 L Pulse Oximetry 97 Oxygen Delivery Method Room Air BMI result Body Mass Index 36.6 <Terri West MD - Last Filed: 06/17/22 22:09> Const Other: Appearance: Alert. Oriented X3. No acute distress. Eyes: Pupils equal, round and reactive to light. ENT: Pharynx normal. Neck: Normal inspection. Neck supple. No lymph nodes noted. No crepitus CVS: Normal heart rate and rhythm. Pulses normal. Normal S1 and S2 Respiratory: No respiratory distress. Breath sounds normal. No Wheezing. No rales Abdomen: Soft and nontender. No rigidity. No distention. Skin: Skin very want to touch and dry. Normal skin color. Normal skin turgor. Extremities: No lower extremity edema. No Lacerations. No Rash Neuro: Oriented X 3. No motor deficit. No sensory deficit. Moving all extremities. No slurred speech. CN 2 through 12 grossly intact Psych: calm, cooperative, normal affect <Terri West MD - Last Filed: 06/17/22 22:09> Course Course Course Narrative: RME- 14:40pm 61-year-old female with a past medical history of diabetes with neuropathy, CHF, CKD, CVA, CAD, asthma, arthritis, gout, hypercholesterolemia, hypertension, obstructive sleep apnea, and chronic back pain presenting to the ED with her daughter at bedside with complaints fevers, nausea/vomiting since last night worse this morning. No other household members vomiting with similar symptoms. Although the other household members are recovering from COVID. She was recen tly diagnosed with UTI and started on Cefpodoxime from here on 06/15/22. She denies any cough, sore throat, diarrhea, constipation, dysuria or constipation or any other symptoms complaints or concerns at this time Therefore at this time due to patient's vital signs being tachycardic, tachypneic and febrile patient will be given 975 mg of Tylenol, 4 mg of Zofran and will obtain labs, blood cultures, lactic acid and repeat urine. <KASIE Michelle - Last Filed: 06/17/22 14:41> Medical Decision Making Medical Decision Making [facility] Narrative: --patient's white blood cell count 15.4. Patient's urinalysis is not impressive. However, she is currently being treated with levofloxacin. -patient has no respiratory symptoms, chest x-ray negative -on arrival, patient was treated empirically for UTI , patient was given IV fluids based on ideal weight of 55 kg, patient obese. Also, patient was treated with ceftriaxone. -I reviewed patient's antibiotic susceptibility, ceftriaxone should work. -on arrival, patient had a blood glucose of 538, lactic acid 2.9. -patient's lactic acid improved to 1.3 -patient's glucose improved to 3 and 74. Patient will need more treatment. Anion gap is closed -I discussed the patient with Dr. Espinoza, patient being admitted. <Terri West MD - Last Filed: 06/17/22 22:09> Differential Diagnosis Differential Diagnoses: The differential diagnosis associated with the presentation includes (UTI, pyelonephritis, viral syndrome) <Terri West MD - Last Filed: 06/17/22 22:09> Admission/Observation Consideration of admission/observation: Escalation of care including admission/observation considered <Terri gayle MD - Last Filed: 06/17/22 22:09> Lab Data [facility] Lab Attestation statement: I reviewed the patient's lab results. <Terri West MD - Last Filed: 06/17/22 22:09> Result Diagrams: 06/17/22 14:55 06/17/22 14:55 <KASIE Michelle - Last Filed: 06/17/22 14:41> Labs: Lab Results 06/17/22 06/17/22 06/17/22 Range/Units 14:55 14:55 14:55 WBC 15.4 H (4.8-10.8) X10*3/uL RBC 4.16 L (4.20-5.50) X10*6/uL Hgb 12.1 (12.0-16.0) g/dl Hct 37.8 (37.0-47.0) % MCV 90.9 (80.0-98.0) fL MCH 29.1 (27.0-33.0) pg MCHC 32.0 (31.0-35.0) g/dl RDW 14.1 (11.0-16.0) % Plt Count 230 (160-400) X10*3/uL MPV 10.8 (9.4-12.3) fL Immature Gran % (Auto) 0.7 H (0.0-0.4) % Neut % (Auto) 79.6 H (45-73) % Lymph % (Auto) 10.2 L (20-40) % [place] % (Auto) 9.3 (2-11) % Eos % (Auto) 0.0 (0-4) % Baso % (Auto) 0.2 (0-2) % Lymph # (Auto) 1.6 (1.2-4.9) X10*3/uL [place] # (Auto) 1.4 H (0.1-1.2) X10*3/uL Eos # (Auto) 0.0 (0.0-0.4) X10*3/uL Baso # (Auto) 0.0 (0.0-0.2) X10*3/uL Abs Immat Gran (auto) 0.10 H (0.00-0.03) X10*3/uL Absolute Neuts (auto) 12.2 H (2.0-8.3) x10*3/uL Absolute Nucleated RBC 0.000 (0.0-0.012) X10*3/uL Nucleated RBC % (auto) 0.0 (0.0-0.2) /100WBC PT 15.3 H (10.0-13.1) SEC INR 1.3 H (0.9-1.1) Sodium 128 L (135-145) mmol/L Potassium 5.2 H (3.3-5.1) mmol/L Chloride 90 L (96-108) mmol/L Carbon Dioxide 25 (22-29) mmol/L Anion Gap 18 (12-20) BUN 33 H (9-16) mg/dL Creatinine 2.40 H (0.5-1.4) mg/dL Estim Creat Clear Calc 26.1 Estimated GFR 21 POC Glucose (60-115) mg/dL Random Glucose 538 H* (60-115) mg/dL Lactic Acid (0.5-2.0) mmol/L Lactic Acid F/U @ 2Hr (0.5-2.0) mmol/L Calcium 9.3 (8.4-10.2) mg/dL Magnesium 2.2 (1.6-2.6) mg/dL Total Bilirubin 1.0 (0.0-1.0) mg/dL AST 17 (5-31) U/L ALT 19 (0-31) U/L Alkaline Phosphatase 64 (39-117) U/L Total Protein 8.1 H (6.5-8.0) g/dL Albumin 3.8 (3.5-5.0) g/dL Lipase 16 (8-78) U/L Urine Color Urine Appearance Urine pH (5.0-9.0) Ur Specific [place] (1.005-1.025) Urine Protein (Neg-Trace) mg/dL Urine Glucose (UA) (Negative) mg/dL Urine Ketones (Negative) mg/dL Urine Blood (Negative) Urine Nitrite (Negative) Ur Leukocyte Esterase (Negative) Urine RBC (0-2) /HPF Urine WBC (0-5) /HPF Ur Squamous Epith Cells (0-2) /HPF Urine Bacteria (None Seen) Hyaline Casts (0-2) /LPF Acetone, Qual Negative (Negative) COVID-19 ([facility]) (Negative) COVID-19 Clin Com Influenza Type A (JOSIE) (Negative) Influenza Type B (JOSIE) (Negative) Influenza A & B Note 06/17/22 06/17/22 06/17/22 Range/Units 14:55 17:22 17:27 WBC (4.8-10.8) X10*3/uL RBC (4.20-5.50) X10*6/uL Hgb (12.0-16.0) g/dl Hct (37.0-47.0) % MCV (80.0-98.0) fL MCH (27.0-33.0) pg MCHC (31.0-35.0) g/dl RDW (11.0-16.0) % Plt Count (160-400) X10*3/uL MPV (9.4-12.3) fL Immature Gran % (Auto) (0.0-0.4) % Neut % (Auto) (45-73) % Lymph % (Auto) (20-40) % [place] % (Auto) (2-11) % Eos % (Auto) (0-4) % Baso % (Auto) (0-2) % Lymph # (Auto) (1.2-4.9) X10*3/uL [place] # (Auto) (0.1-1.2) X10*3/uL Eos # (Auto) (0.0-0.4) X10*3/uL Baso # (Auto) (0.0-0.2) X10*3/uL Abs Immat Gran (auto) (0.00-0.03) X10*3/uL Absolute Neuts (auto) (2.0-8.3) x10*3/uL Absolute Nucleated RBC (0.0-0.012) X10*3/uL Nucleated RBC % (auto) (0.0-0.2) /100WBC PT (10.0-13.1) SEC INR (0.9-1.1) Sodium (135-145) mmol/L Potassium (3.3-5.1) mmol/L Chloride (96-108) mmol/L Carbon Dioxide (22-29) mmol/L Anion Gap (12-20) BUN (9-16) mg/dL Creatinine (0.5-1.4) mg/dL Estim Creat Clear Calc Estimated GFR POC Glucose 418 H* (60-115) mg/dL Random Glucose (60-115) mg/dL Lactic Acid 2.9 H* (0.5-2.0) mmol/L Lactic Acid F/U @ 2Hr (0.5-2.0) mmol/L Calcium (8.4-10.2) mg/dL Magnesium (1.6-2.6) mg/dL Total Bilirubin (0.0-1.0) mg/dL AST (5-31) U/L ALT (0-31) U/L Alkaline Phosphatase (39-117) U/L Total Protein (6.5-8.0) g/dL Albumin (3.5-5.0) g/dL Lipase (8-78) U/L Urine Color Yellow Urine Appearance Clear Urine pH 8.0 (5.0-9.0) Ur Specific [place] 1.020 (1.005-1.025) Urine Protein 100 (2+) H (Neg-Trace) mg/dL Urine Glucose (UA) >=1000 H (Negative) mg/dL Urine Ketones Negative (Negative) mg/dL Urine Blood Moderate (2+) H (Negative) Urine Nitrite Negative (Negative) Ur Leukocyte Esterase Trace H (Negative) Urine RBC 0-2 (0-2) /HPF Urine WBC 6-10 (0-5) /HPF Ur Squamous Epith Cells 0-2 (0-2) /HPF Urine Bacteria None Seen (None Seen) Hyaline Casts 0-2 (0-2) /LPF Acetone, Qual (Negative) COVID-19 ([facility]) (Negative) COVID-19 Clin Com Influenza Type A (JOSIE) (Negative) Influenza Type B (JOSIE) (Negative) Influenza A & B Note 06/17/22 06/17/22 06/17/22 Range/Units 17:28 17:28 17:59 WBC (4.8-10.8) X10*3/uL RBC (4.20-5.50) X10*6/uL Hgb (12.0-16.0) g/dl Hct (37.0-47.0) % MCV (80.0-98.0) fL MCH (27.0-33.0) pg MCHC (31.0-35.0) g/dl RDW (11.0-16.0) % Plt Count (160-400) X10*3/uL MPV (9.4-12.3) fL Immature Gran % (Auto) (0.0-0.4) % Neut % (Auto) (45-73) % Lymph % (Auto) (20-40) % [place] % (Auto) (2-11) % Eos % (Auto) (0-4) % Baso % (Auto) (0-2) % Lymph # (Auto) (1.2-4.9) X10*3/uL [place] # (Auto) (0.1-1.2) X10*3/uL Eos # (Auto) (0.0-0.4) X10*3/uL Baso # (Auto) (0.0-0.2) X10*3/uL Abs Immat Gran (auto) (0.00-0.03) X10*3/uL Absolute Neuts (auto) (2.0-8.3) x10*3/uL Absolute Nucleated RBC (0.0-0.012) X10*3/uL Nucleated RBC % (auto) (0.0-0.2) /100WBC PT (10.0-13.1) SEC INR (0.9-1.1) Sodium (135-145) mmol/L Potassium (3.3-5.1) mmol/L Chloride (96-108) mmol/L Carbon Dioxide (22-29) mmol/L Anion Gap (12-20) BUN (9-16) mg/dL Creatinine (0.5-1.4) mg/dL Estim Creat Clear Calc Estimated GFR POC Glucose (60-115) mg/dL Random Glucose (60-115) mg/dL Lactic Acid (0.5-2.0) mmol/L Lactic Acid F/U @ 2Hr 1.3 (0.5-2.0) mmol/L Calcium (8.4-10.2) mg/dL Magnesium (1.6-2.6) mg/dL Total Bilirubin (0.0-1.0) mg/dL AST (5-31) U/L ALT (0-31) U/L Alkaline Phosphatase (39-117) U/L Total Protein (6.5-8.0) g/dL Albumin (3.5-5.0) g/dL Lipase (8-78) U/L Urine Color Urine Appearance Urine pH (5.0-9.0) Ur Specific [place] (1.005-1.025) Urine Protein (Neg-Trace) mg/dL Urine Glucose (UA) (Negative) mg/dL Urine Ketones (Negative) mg/dL Urine Blood (Negative) Urine Nitrite (Negative) Ur Leukocyte Esterase (Negative) Urine RBC (0-2) /HPF Urine WBC (0-5) /HPF Ur Squamous Epith Cells (0-2) /HPF Urine Bacteria (None Seen) Hyaline Casts (0-2) /LPF Acetone, Qual (Negative) COVID-19 ([facility]) Positive A (Negative) COVID-19 Clin Com See Note Influenza Type A (JOSIE) Negative (Negative) Influenza Type B (JOSIE) Negative (Negative) Influenza A & B Note See Note 06/17/22 06/17/22 Range/Units 18:28 20:53 WBC (4.8-10.8) X10*3/uL RBC (4.20-5.50) X10*6/uL Hgb (12.0-16.0) g/dl Hct (37.0-47.0) % MCV (80.0-98.0) fL MCH (27.0-33.0) pg MCHC (31.0-35.0) g/dl RDW (11.0-16.0) % Plt Count (160-400) X10*3/uL MPV (9.4-12.3) fL Immature Gran % (Auto) (0.0-0.4) % Neut % (Auto) (45-73) % Lymph % (Auto) (20-40) % [place] % (Auto) (2-11) % Eos % (Auto) (0-4) % Baso % (Auto) (0-2) % Lymph # (Auto) (1.2-4.9) X10*3/uL [place] # (Auto) (0.1-1.2) X10*3/uL Eos # (Auto) (0.0-0.4) X10*3/uL Baso # (Auto) (0.0-0.2) X10*3/uL Abs Immat Gran (auto) (0.00-0.03) X10*3/uL Absolute Neuts (auto) (2.0-8.3) x10*3/uL Absolute Nucleated RBC (0.0-0.012) X10*3/uL Nucleated RBC % (auto) (0.0-0.2) /100WBC PT (10.0-13.1) SEC INR (0.9-1.1) Sodium (135-145) mmol/L Potassium (3.3-5.1) mmol/L Chloride (96-108) mmol/L Carbon Dioxide (22-29) mmol/L Anion Gap (12-20) BUN (9-16) mg/dL Creatinine (0.5-1.4) mg/dL Estim Creat Clear Calc Estimated GFR POC Glucose 375 H* 374 H* (60-115) mg/dL Random Glucose (60-115) mg/dL Lactic Acid (0.5-2.0) mmol/L Lactic Acid F/U @ 2Hr (0.5-2.0) mmol/L Calcium (8.4-10.2) mg/dL Magnesium (1.6-2.6) mg/dL Total Bilirubin (0.0-1.0) mg/dL AST (5-31) U/L ALT (0-31) U/L Alkaline Phosphatase (39-117) U/L Total Protein (6.5-8.0) g/dL Albumin (3.5-5.0) g/dL Lipase (8-78) U/L Urine Color Urine Appearance Urine pH (5.0-9.0) Ur Specific [place] (1.005-1.025) Urine Protein (Neg-Trace) mg/dL Urine Glucose (UA) (Negative) mg/dL Urine Ketones (Negative) mg/dL Urine Blood (Negative) Urine Nitrite (Negative) Ur Leukocyte Esterase (Negative) Urine RBC (0-2) /HPF Urine WBC (0-5) /HPF Ur Squamous Epith Cells (0-2) /HPF Urine Bacteria (None Seen) Hyaline Casts (0-2) /LPF Acetone, Qual (Negative) COVID-19 ([facility]) (Negative) COVID-19 Clin Com Influenza Type A ([facility]IE) (Negative) Influenza Type B ([facility]IE) (Negative) Influenza A & B Note <KASIE Michelle - Last Filed: 06/17/22 14:41> Lab Results 06/17/22 06/17/22 06/17/22 Range/Units 14:55 14:55 14:55 WBC 15.4 H (4.8-10.8) X10*3/uL RBC 4.16 L (4.20-5.50) X10*6/uL Hgb 12.1 (12.0-16.0) g/dl Hct 37.8 (37.0-47.0) % MCV 90.9 (80.0-98.0) fL MCH 29.1 (27.0-33.0) pg MCHC 32.0 (31.0-35.0) g/dl RDW 14.1 (11.0-16.0) % Plt Count 230 (160-400) X10*3/uL MPV 10.8 (9.4-12.3) fL Immature Gran % (Auto) 0.7 H (0.0-0.4) % Neut % (Auto) 79.6 H (45-73) % Lymph % (Auto) 10.2 L (20-40) % [place] % (Auto) 9.3 (2-11) % Eos % (Auto) 0.0 (0-4) % Baso % (Auto) 0.2 (0-2) % Lymph # (Auto) 1.6 (1.2-4.9) X10*3/uL [place] # (Auto) 1.4 H (0.1-1.2) X10*3/uL Eos # (Auto) 0.0 (0.0-0.4) X10*3/uL Baso # (Auto) 0.0 (0.0-0.2) X10*3/uL Abs Immat Gran (auto) 0.10 H (0.00-0.03) X10*3/uL Absolute Neuts (auto) 12.2 H (2.0-8.3) x10*3/uL Absolute Nucleated RBC 0.000 (0.0-0.012) X10*3/uL Nucleated RBC % (auto) 0.0 (0.0-0.2) /100WBC PT 15.3 H (10.0-13.1) SEC INR 1.3 H (0.9-1.1) Sodium 128 L (135-145) mmol/L Potassium 5.2 H (3.3-5.1) mmol/L Chloride 90 L (96-108) mmol/L Carbon Dioxide 25 (22-29) mmol/L Anion Gap 18 (12-20) BUN 33 H (9-16) mg/dL Creatinine 2.40 H (0.5-1.4) mg/dL Estim Creat Clear Calc 26.1 Estimated GFR 21 POC Glucose (60-115) mg/dL Random Glucose 538 H* (60-115) mg/dL Lactic Acid (0.5-2.0) mmol/L Lactic Acid F/U @ 2Hr (0.5-2.0) mmol/L Calcium 9.3 (8.4-10.2) mg/dL Magnesium 2.2 (1.6-2.6) mg/dL Total Bilirubin 1.0 (0.0-1.0) mg/dL AST 17 (5-31) U/L ALT 19 (0-31) U/L Alkaline Phosphatase 64 (39-117) U/L Total Protein 8.1 H (6.5-8.0) g/dL Albumin 3.8 (3.5-5.0) g/dL Lipase 16 (8-78) U/L Urine Color Urine Appearance Urine pH (5.0-9.0) Ur Specific [place] (1.005-1.025) Urine Protein (Neg-Trace) mg/dL Urine Glucose (UA) (Negative) mg/dL Urine Ketones (Negative) mg/dL Urine Blood (Negative) Urine Nitrite (Negative) Ur Leukocyte Esterase (Negative) Urine RBC (0-2) /HPF Urine WBC (0-5) /HPF Ur Squamous Epith Cells (0-2) /HPF Urine Bacteria (None Seen) Hyaline Casts (0-2) /LPF Acetone, Qual Negative (Negative) COVID-19 ([facility]) (Negative) COVID-19 Clin Com Influenza Type A ([facility]) (Negative) Influenza Type B ([facility]) (Negative) Influenza A & B Note 06/17/22 06/17/22 06/17/22 Range/Units 14:55 17:22 17:27 WBC (4.8-10.8) X10*3/uL RBC (4.20-5.50) X10*6/uL Hgb (12.0-16.0) g/dl Hct (37.0-47.0) % MCV (80.0-98.0) fL MCH (27.0-33.0) pg MCHC (31.0-35.0) g/dl RDW (11.0-16.0) % Plt Count (160-400) X10*3/uL MPV (9.4-12.3) fL Immature Gran % (Auto) (0.0-0.4) % Neut % (Auto) (45-73) % Lymph % (Auto) (20-40) % [place] % (Auto) (2-11) % Eos % (Auto) (0-4) % Baso % (Auto) (0-2) % Lymph # (Auto) (1.2-4.9) X10*3/uL [place] # (Auto) (0.1-1.2) X10*3/uL Eos # (Auto) (0.0-0.4) X10*3/uL Baso # (Auto) (0.0-0.2) X10*3/uL Abs Immat Gran (auto) (0.00-0.03) X10*3/uL Absolute Neuts (auto) (2.0-8.3) x10*3/uL Absolute Nucleated RBC (0.0-0.012) X10*3/uL Nucleated RBC % (auto) (0.0-0.2) /100WBC PT (10.0-13.1) SEC INR (0.9-1.1) Sodium (135-145) mmol/L Potassium (3.3-5.1) mmol/L Chloride (96-108) mmol/L Carbon Dioxide (22-29) mmol/L Anion Gap (12-20) BUN (9-16) mg/dL Creatinine (0.5-1.4) mg/dL Estim Creat Clear Calc Estimated GFR POC Glucose 418 H* (60-115) mg/dL Random Glucose (60-115) mg/dL Lactic Acid 2.9 H* (0.5-2.0) mmol/L Lactic Acid F/U @ 2Hr (0.5-2.0) mmol/L Calcium (8.4-10.2) mg/dL Magnesium (1.6-2.6) mg/dL Total Bilirubin (0.0-1.0) mg/dL AST (5-31) U/L ALT (0-31) U/L Alkaline Phosphatase (39-117) U/L Total Protein (6.5-8.0) g/dL Albumin (3.5-5.0) g/dL Lipase (8-78) U/L Urine Color Yellow Urine Appearance Clear Urine pH 8.0 (5.0-9.0) Ur Specific [place] 1.020 (1.005-1.025) Urine Protein 100 (2+) H (Neg-Trace) mg/dL Urine Glucose (UA) >=1000 H (Negative) mg/dL Urine Ketones Negative (Negative) mg/dL Urine Blood Moderate (2+) H (Negative) Urine Nitrite Negative (Negative) Ur Leukocyte Esterase Trace H (Negative) Urine RBC 0-2 (0-2) /HPF Urine WBC 6-10 (0-5) /HPF Ur Squamous Epith Cells 0-2 (0-2) /HPF Urine Bacteria None Seen (None Seen) Hyaline Casts 0-2 (0-2) /LPF Acetone, Qual (Negative) COVID-19 ([facility]) (Negative) COVID-19 Clin Com Influenza Type A ([facility]) (Negative) Influenza Type B ([facility]OSIE) (Negative) Influenza A & B Note 06/17/22 06/17/22 06/17/22 Range/Units 17:28 17:28 17:59 WBC (4.8-10.8) X10*3/uL RBC (4.20-5.50) X10*6/uL Hgb (12.0-16.0) g/dl Hct (37.0-47.0) % MCV (80.0-98.0) fL MCH (27.0-33.0) pg MCHC (31.0-35.0) g/dl RDW (11.0-16.0) % Plt Count (160-400) X10*3/uL MPV (9.4-12.3) fL Immature Gran % (Auto) (0.0-0.4) % Neut % (Auto) (45-73) % Lymph % (Auto) (20-40) % [place] % (Auto) (2-11) % Eos % (Auto) (0-4) % Baso % (Auto) (0-2) % Lymph # (Auto) (1.2-4.9) X10*3/uL [place] # (Auto) (0.1-1.2) X10*3/uL Eos # (Auto) (0.0-0.4) X10*3/uL Baso # (Auto) (0.0-0.2) X10*3/uL Abs Immat Gran (auto) (0.00-0.03) X10*3/uL Absolute Neuts (auto) (2.0-8.3) x10*3/uL Absolute Nucleated RBC (0.0-0.012) X10*3/uL Nucleated RBC % (auto) (0.0-0.2) /100WBC PT (10.0-13.1) SEC INR (0.9-1.1) Sodium (135-145) mmol/L Potassium (3.3-5.1) mmol/L Chloride (96-108) mmol/L Carbon Dioxide (22-29) mmol/L Anion Gap (12-20) BUN (9-16) mg/dL Creatinine (0.5-1.4) mg/dL Estim Creat Clear Calc Estimated GFR POC Glucose (60-115) mg/dL Random Glucose (60-115) mg/dL Lactic Acid (0.5-2.0) mmol/L Lactic Acid F/U @ 2Hr 1.3 (0.5-2.0) mmol/L Calcium (8.4-10.2) mg/dL Magnesium (1.6-2.6) mg/dL Total Bilirubin (0.0-1.0) mg/dL AST (5-31) U/L ALT (0-31) U/L Alkaline Phosphatase (39-117) U/L Total Protein (6.5-8.0) g/dL Albumin (3.5-5.0) g/dL Lipase (8-78) U/L Urine Color Urine Appearance Urine pH (5.0-9.0) Ur Specific [place] (1.005-1.025) Urine Protein (Neg-Trace) mg/dL Urine Glucose (UA) (Negative) mg/dL Urine Ketones (Negative) mg/dL Urine Blood (Negative) Urine Nitrite (Negative) Ur Leukocyte Esterase (Negative) Urine RBC (0-2) /HPF Urine WBC (0-5) /HPF Ur Squamous Epith Cells (0-2) /HPF Urine Bacteria (None Seen) Hyaline Casts (0-2) /LPF Acetone, Qual (Negative) COVID-19 (ORA) Positive A (Negative) COVID-19 Clin Com See Note Influenza Type A (JOSIE) Negative (Negative) Influenza Type B (JOSIE) Negative (Negative) Influenza A & B Note See Note 06/17/22 06/17/22 Range/Units 18:28 20:53 WBC (4.8-10.8) X10*3/uL RBC (4.20-5.50) X10*6/uL Hgb (12.0-16.0) g/dl Hct (37.0-47.0) % MCV (80.0-98.0) fL MCH (27.0-33.0) pg MCHC (31.0-35.0) g/dl RDW (11.0-16.0) % Plt Count (160-400) X10*3/uL MPV (9.4-12.3) fL Immature Gran % (Auto) (0.0-0.4) % Neut % (Auto) (45-73) % Lymph % (Auto) (20-40) % [place] % (Auto) (2-11) % Eos % (Auto) (0-4) % Baso % (Auto) (0-2) % Lymph # (Auto) (1.2-4.9) X10*3/uL [place] # (Auto) (0.1-1.2) X10*3/uL Eos # (Auto) (0.0-0.4) X10*3/uL Baso # (Auto) (0.0-0.2) X10*3/uL Abs Immat Gran (auto) (0.00-0.03) X10*3/uL Absolute Neuts (auto) (2.0-8.3) x10*3/uL Absolute Nucleated RBC (0.0-0.012) X10*3/uL Nucleated RBC % (auto) (0.0-0.2) /100WBC PT (10.0-13.1) SEC INR (0.9-1.1) Sodium (135-145) mmol/L Potassium (3.3-5.1) mmol/L Chloride (96-108) mmol/L Carbon Dioxide (22-29) mmol/L Anion Gap (12-20) BUN (9-16) mg/dL Creatinine (0.5-1.4) mg/dL Estim Creat Clear Calc Estimated GFR POC Glucose 375 H* 374 H* (60-115) mg/dL Random Glucose (60-115) mg/dL Lactic Acid (0.5-2.0) mmol/L Lactic Acid F/U @ 2Hr (0.5-2.0) mmol/L Calcium (8.4-10.2) mg/dL Magnesium (1.6-2.6) mg/dL Total Bilirubin (0.0-1.0) mg/dL AST (5-31) U/L ALT (0-31) U/L Alkaline Phosphatase (39-117) U/L Total Protein (6.5-8.0) g/dL Albumin (3.5-5.0) g/dL Lipase (8-78) U/L Urine Color Urine Appearance Urine pH (5.0-9.0) Ur Specific [place] (1.005-1.025) Urine Protein (Neg-Trace) mg/dL Urine Glucose (UA) (Negative) mg/dL Urine Ketones (Negative) mg/dL Urine Blood (Negative) Urine Nitrite (Negative) Ur Leukocyte Esterase (Negative) Urine RBC (0-2) /HPF Urine WBC (0-5) /HPF Ur Squamous Epith Cells (0-2) /HPF Urine Bacteria (None Seen) Hyaline Casts (0-2) /LPF Acetone, Qual (Negative) COVID-19 (ORA) (Negative) COVID-19 Clin Com Influenza Type A (JOSIE) (Negative) Influenza Type B (JOSIE) (Negative) Influenza A & B Note <Terri West MD - Last Filed: 06/17/22 22:09> Radiology Impression Discussion of test interpretation with radiology: I have reviewed the radiologist's reading. <Terri West MD - Last Filed: 06/17/22 22:09> Radiologist Impression: Median sternotomy wires appear intact. Surgical clips overlie the mediastinum. Cardiac leads overlie the chest. The lungs are well expanded. There is no focal consolidation, edema, or effusion. No pneumothorax. Right midlung calcified granuloma again noted. The cardiomediastinal silhouette is within normal limits. No acute osseous abnormality. XR/XR chest 1V IMPRESSION: No acute pulmonary disease. <Terri West MD - Last Filed: 06/17/22 22:09> Medications Administered Generic Name Dose Route Start Last Admin Trade Name Freq PRN Reason Stop Dose Admin Enoxaparin Sodium 30 mg 06/17/22 22:00 06/17/22 21:23 Enoxaparin Sodium 30 Mg/0.3 Ml Syringe SUBCUT 30 mg Q24H DAVID Administration Discontinued Medications Generic Name Dose Route Start Last Admin Trade Name Freq PRN Reason Stop Dose Admin Acetaminophen 975 mg 06/17/22 14:38 06/17/22 15:02 Acetaminophen 325 Mg Tablet PO 06/17/22 14:39 975 mg ONCE ONE Administration Ceftriaxone Sodium 2 gm/ 50 mls @ 100 mls/hr 06/17/22 15:35 06/17/22 16:26 Sodium Chloride IV 06/17/22 16:04 Infused ONCE ONE Infusion Sodium Chloride 1,000 mls @ 999 mls/hr 06/17/22 15:37 06/17/22 16:26 Ns IV 06/17/22 16:37 Infused .Q1H1M STA Infusion Sodium Chloride 1,000 mls @ 999 mls/hr 06/17/22 16:07 06/17/22 17:58 Ns IVCONT 06/17/22 17:07 Infused .Q1H1M ONE Infusion Insulin Human Lispro 5 unit 06/17/22 21:28 06/17/22 21:36 Insulin Lispro 100 Unit/Ml 3 Ml Vial SUBCUT 06/17/22 21:29 5 unit ONCE ONE Administration Insulin Human Regular 10 unit 06/17/22 16:48 06/17/22 16:59 Insulin Regular, Human 100 Unit/Ml 3 Ml Vial IVPUSH 06/17/22 16:49 10 unit ONCE ONE Administration Insulin Human Regular 10 unit 06/17/22 17:33 06/17/22 17:56 Insulin Regular, Human 100 Unit/Ml 3 Ml Vial IVPUSH 06/17/22 17:34 10 unit ONCE ONE Administration Ondansetron HCl 4 mg 06/17/22 14:38 06/17/22 15:02 Ondansetron Odt 4 Mg Tab.Rapdis TRANSLINGU 06/17/22 14:39 4 mg ONCE ONE Administration <KASIE Michelle - Last Filed: 06/17/22 14:41> Medications Administered Generic Name Dose Route Start Last Admin Trade Name Freq PRN Reason Stop Dose Admin Enoxaparin Sodium 30 mg 06/17/22 22:00 06/17/22 21:23 Enoxaparin Sodium 30 Mg/0.3 Ml Syringe SUBCUT 30 mg Q24H DAVID Administration Discontinued Medications Generic Name Dose Route Start Last Admin Trade Name Freq PRN Reason Stop Dose Admin Acetaminophen 975 mg 06/17/22 14:38 06/17/22 15:02 Acetaminophen 325 Mg Tablet PO 06/17/22 14:39 975 mg ONCE ONE Administration Ceftriaxone Sodium 2 gm/ 50 mls @ 100 mls/hr 06/17/22 15:35 06/17/22 16:26 Sodium Chloride IV 06/17/22 16:04 Infused ONCE ONE Infusion Sodium Chloride 1,000 mls @ 999 mls/hr 06/17/22 15:37 06/17/22 16:26 Ns IV 06/17/22 16:37 Infused .Q1H1M STA Infusion Sodium Chloride 1,000 mls @ 999 mls/hr 06/17/22 16:07 06/17/22 17:58 Ns IVCONT 06/17/22 17:07 Infused .Q1H1M ONE Infusion Insulin Human Lispro 5 unit 06/17/22 21:28 06/17/22 21:36 Insulin Lispro 100 Unit/Ml 3 Ml Vial SUBCUT 06/17/22 21:29 5 unit ONCE ONE Administration Insulin Human Regular 10 unit 06/17/22 16:48 06/17/22 16:59 Insulin Regular, Human 100 Unit/Ml 3 Ml Vial IVPUSH 06/17/22 16:49 10 unit ONCE ONE Administration Insulin Human Regular 10 unit 06/17/22 17:33 06/17/22 17:56 Insulin Regular, Human 100 Unit/Ml 3 Ml Vial IVPUSH 06/17/22 17:34 10 unit ONCE ONE Administration Ondansetron HCl 4 mg 06/17/22 14:38 06/17/22 15:02 Ondansetron Odt 4 Mg Tab.Rapdis TRANSLINGU 06/17/22 14:39 4 mg ONCE ONE Administration <Terri West MD - Last Filed: 06/17/22 22:09> Critical Care Time Critical Care Time Critical Care Time: Yes <Terri West MD - Last Filed: 06/17/22 22:09> Total Critical Care Time: 60 <Terri West MD - Last Filed: 06/17/22 22:09> Attestation: I have personally provided critical care time. Time includes review of lab data, radiology results, discussion with consultants, and monitoring for potential decompensation. Intervention performed as documented. <Terri West MD - Last Filed: 06/17/22 22:09> Discharge Plan Discharge Clinical Impression: UTI (urinary tract infection), Acute hyperglycemia <KASIE Michelle - Last Filed: 06/17/22 14:41> Patient Disposition: Admitted As Inpatient <KASIE Michelle - Last Filed: 06/17/22 14:41> Prescriptions: No Action (DME) Shower Chair Misc See Rx Instructions .ROUTE .MEDSUPPLY Qty: 1 0RF Rx Instructions: As directed (DME) walker Misc See Rx Instructions .ROUTE .MEDSUPPLY Qty: 1 0RF Rx Instructions: with seat and wheels lactulose 10 gram/15 mL solution 10 g PO BEDTIME PRN (Reason: constipation) 30 Days Qty: 450 2RF amlodipine 5 mg tablet 5 mg PO DAILY 90 Days Qty: 90 3RF Rx Instructions: Reduction in dose metoprolol tartrate 25 mg tablet 50 mg PO BID 90 Days Qty: 360 3RF sennosides [Senna Laxative] 8.6 mg tablet 17.2 mg PO BEDTIME PRN (Reason: constipation) 30 Days Qty: 60 5RF allopurinol 300 mg tablet 300 mg PO DAILY Qty: 30 6RF aspirin 81 mg tablet,delayed release (DR/EC) 81 mg PO DAILY Qty: 30 6RF cholecalciferol (vitamin D3) 50 mcg (2,000 unit) capsule 50 mcg PO DAILY 90 Days Qty: 90 2RF spironolactone 25 mg tablet 25 mg PO DAILY Qty: 90 11RF rosuvastatin 40 mg tablet 40 mg PO DAILY 90 Days Qty: 90 3RF ferrous sulfate 325 mg (65 mg iron) tablet 325 mg PO BID Qty: 60 3RF clopidogrel [Plavix] 75 mg tablet 75 mg PO DAILY Qty: 90 1RF cefpodoxime 200 mg tablet 200 mg PO BID 7 Days Qty: 14 0RF Rx Instructions: must administer with a meal/food amitriptyline 25 mg Tablet 25 mg PO BEDTIME ascorbic acid (vitamin C) [Vitamin C With Allie Hips] 500 mg Tablet 500 mg PO DAILY lisinopril 5 mg tablet 5 mg PO DAILY 90 Days Qty: 90 3RF Hold Instructions: Resume on 01/24/22. please repeat bmp and will need nephrology clearence before starting lisinopril furosemide 40 mg tablet 40 mg PO DAILY Hold Instructions: Resume on 01/31/22. hold and repeat bmp ,follow up with nephrology before staring lasix. insulin regular hum U-500 conc 500 unit/mL solution 0 - 450 unit subcut DAILY PRN (Reason: for insulin pump) (DME) blood sugar diagnostic Strip See Rx Instructions Not Applicable .MEDSUPPLY Qty: 10 Rx Instructions: As directed gabapentin 300 mg capsule 300 mg PO BID Farxiga 10 mg tablet 10 mg PO DAILY <KASIE Michelle - Last Filed: 06/17/22 14:41>
[2022-06-17 15:01] LABS: MANUAL DIFF FLAG NO
[2022-06-17] MEDS: Ondansetron ODT 4 MG TAB.RAPDIS TRANSLINGU (15:02)
[2022-06-17] MEDS: Acetaminophen 325 MG TABLET 975 MG PO (15:02)
[2022-06-17 15:03] LABS: Basophils Percent Auto 0.2 % (0-2); Hematocrit 37.8 % (37.0-47.0); Hemoglobin 12.1 g/dl (12.0-16.0); Imm Gran Pct Auto 0.7 % (0.0-0.4); Lymphocytes Absolute Auto 1.6 X10*3/uL (1.2-4.9); Lymphocytes Percent Auto 10.2 % (20-40); Mean Corpuscular Hemoglobin 29.1 pg (27.0-33.0); Mean Corpuscular Volume 90.9 fL (80.0-98.0); Mean Platelet Volume 10.8 fL (9.4-12.3); Monocytes Absolute Auto 1.4 X10*3/uL (0.1-1.2); Monocytes Percent Auto 9.3 % (2-11); Neutrophils Absolute Auto 12.2 x10*3/uL (2.0-8.3); Neutrophils Percent Auto 79.6 % (45-73); Platelet Count 230 X10*3/uL (160-400); Red Blood Count 4.16 X10*6/uL (4.20-5.50); Red Cell Distribution Width 14.1 % (11.0-16.0); White Blood Count 15.4 X10*3/uL (4.8-10.8)
[2022-06-17 15:14] LABS: INTERNATIONAL NORM RATIO 1.3 (0.9-1.1); Prothrombin Time 15.3 SEC (10.0-13.1)
--- NOTE | 2022-06-17 15:25 | PC.NURSE ---
Ch[place] speaking female with daughter at bedside recent diagnosis of UTI patient is febrile nauseaous no distress noted AOx 4 IV access obtained labs collected and sent tylenol and zofran admin patient tolerated well will CTM
[2022-06-17 15:37] LABS: Lactic Acid 2.9 mmol/L (0.5-2.0)
[2022-06-17 15:38] LABS: Alanine Aminotransferase 19 U/L (0-31); Albumin Level 3.8 g/dL (3.5-5.0); Alkaline Phosphatase 64 U/L (39-117); Anion Gap 18 (12-20); Aspartate Amino Transferase 17 U/L (5-31); Blood Urea Nitrogen 33 mg/dL (9-16); Calcium 9.3 mg/dL (8.4-10.2); Carbon Dioxide 25 mmol/L (22-29); Chloride 90 mmol/L (96-108); Creatinine Clr Calc Pharmacy 26.1; Estimated Glomerular Filt Rate 21; Glucose Random 538 mg/dL (60-115); Lipase 16 U/L (8-78); Magnesium 2.2 mg/dL (1.6-2.6); Potassium 5.2 mmol/L (3.3-5.1); Sodium 128 mmol/L (135-145); Total Protein 8.1 g/dL (6.5-8.0)
[2022-06-17] MEDS: 0.9 % Sodium Chloride 1,000 ML 999 ML IV (15:56)
[2022-06-17] MEDS: cefTRIAXone sodium 2 GM in 0.9 % Sodium Chloride 50 ML IV (15:56)
--- NOTE | 2022-06-17 15:56 | PC.NURSE ---
per provider will admin 500 ml of ns due to heart failure history
[2022-06-17 16:15] LABS: Acetone, serum QL Negative (Negative)
--- NOTE | 2022-06-17 16:22 | MHC.EDTECH ---
PT WAS HOOKED UP TO PROGRAMMER ANALYST CONSULTANT BY THIS PCT .
[2022-06-17] MEDS: 0.9 % Sodium Chloride 1,000 ML 999 ML IVCONT (16:31)
--- NOTE | 2022-06-17 16:31 | PC.NURSE ---
VErified with MSD will admin total of 2 L of NS 0.9%
[2022-06-17] MEDS: Insulin Regular, Human 100 UNIT/ML 3 ML VIAL 10 UNIT IVPUSH ×2 (16:59→17:56)
[2022-06-17 17:00] LABS: Reflex Lactate? Lactic Acid Added
--- NOTE | 2022-06-17 17:12 | MHC.EDTECH ---
pt was assisted to change into hospital attire ,pt daughter at bedside .
--- NOTE | 2022-06-17 17:28 | MHC.EDTECH ---
PT URINE SAMPLE COLLECTED ,FLU AND COVID SWAB AND SENT TO LAB .
[2022-06-17 17:33] LABS: Glucose, Whole Blood 418 mg/dL (60-115)
[2022-06-17 17:40] LABS: Appearance Urine Clear; Color Urine Yellow; Glucose Urine UA >=1000 mg/dL (Negative); Leukocyte Esterase Urine Trace (Negative); Nitrite Urine Negative (Negative); UMIC TRIGGER UACC YES; Urine Blood Moderate (2+) (Negative); Urine Ketones Negative (Negative); Urine Protein 100 (2+) mg/dL (Neg-Trace)
[2022-06-17 17:48] LABS: COVID-19 Test Positive (Negative); IDNOW Serial# 16C4AD1C
[2022-06-17 17:54] LABS: IDNOW Serial# BCCEAD1C; Influenza A Negative (Negative); Influenza B2 Negative (Negative)
[2022-06-17 18:11] LABS: Bacteria Urine None Seen (None Seen); Hyaline Casts Urine 0-2 /LPF (0-2); RBC Urine 0-2 /HPF (0-2); Squamous Epithelial Cell Urine 0-2 /HPF (0-2); UACC Culture Trigger YES
[2022-06-17 18:20] LABS: ~Lactic Acid-LAB USE ONLY 1.3 mmol/L (0.5-2.0)
[2022-06-17 18:31] LABS: Glucose, Whole Blood 375 mg/dL (60-115)
--- NOTE | 2022-06-17 20:00 | MHC.EDTECH ---
2000 rounding and vitals sign taken ,pt sleeping ,pt daughter at bedside .
[2022-06-17 20:58] LABS: Glucose, Whole Blood 374 mg/dL (60-115)
--- NOTE | 2022-06-17 21:10 | PM.IMHP ---
History of Present Illness Date of Service: 06/17/22 Chief Complaint: Dysuria This is a 61-year-old female with pertinent history of insulin-dependent diabetes mellitus, CAD status post CABG, chronic kidney disease, history of CVA, gout, essential hypertension, BRYNN on CPAP who presents to the emergency department for evaluation of fever and dysuria. Patient was seen in the ER 2 days ago for UTI and was sent home with oral Levaquin. Patient took p.o. antibiotics but states her symptoms progressed and she continued to have dysuria, increased urinary frequency. Also had associated drowsiness, fever, chills and episodes of nausea and vomiting. Denies abdominal pain or diarrhea. Patient without chest discomfort, palpitations, shortness of breath or changes in bowel habits. In the emergency department, patient was found to be septic Review of Systems Constitutional: Constitutional: Reports chills, Reports fever(s), Reports lethargy and Reports malaise Cardiovascular: Cardiovascular: Reports no additional cardiovascular complaints Respiratory: Respiratory: Reports no additional respiratory complaints Gastrointestinal: Gastrointestinal: Reports no additional gastrointestinal complaints Genitourinary: Genitourinary: Reports dysuria and Reports urinary urgency [facility] Medical History Arthritis Asthma CAD (coronary artery disease) Cerebrovascular accident (CVA) due to occlusion of left middle cerebral artery CKD (chronic kidney disease) CKD (chronic kidney disease) stage 4, GFR 15-29 ml/min Diabetes Gout Hypercholesteremia Hypertension Lumbar degenerative disc disease BRYNN (obstructive sleep apnea) Right hemiparesis Sinusitis Skin lesion Stroke Family History Father Stroke Mother Myocardial infarction Paternal Uncle Cancer Surgical History H/O colonoscopy H/O right breast biopsy History of bilateral tubal ligation History of cataract surgery History of coronary angioplasty with insertion of stent History of esophagogastroduodenoscopy (EGD) History of heart surgery Social History Household Members: Family Housing: House Are you a primary acute care nurse to a significant other at home: No Do you presently have visiting nurse or other home services: Yes Alcohol intake: never Patient Tobacco Use Status: Never used Tobacco e-Cigarette/Vaping Use: Never Used Second Hand Smoke Exposure: No Advance Directives: Yes Advance Directives on File: Yes Advance Directives Date on File: 01/25/22 service: No Current occupational status: disabled Sexual orientation: Straight/Heterosexual Gender identity: Female Cognitive needs: Yes Hearing needs: No Vision needs: No Meds Allergies Allergy/AdvReac Type Severity Reaction Status Date / Time lactose Allergy Intermediate Vomiting Verified 04/05/22 09:59 amlodipine Allergy Mild leg edema Verified 04/05/22 09:59 liraglutide [From VICTOZA] Allergy Mild VOMITING RUBI Verified 04/05/22 09:59 Active Medications: Current Medications Acetaminophen (Acetaminophen 325 Mg Tablet) 650 mg PO Q6H PRN PRN Reason: Pain, Mild (Pain Scale 1-3) Dextrose (Dextrose 50 % 25 Gm/50 Ml Syringe) 25 gm IVPUSH Q15M PRN; Protocol PRN Reason: per Hypoglycemia Standing Ord. Enoxaparin Sodium (Enoxaparin Sodium 30 Mg/0.3 Ml Syringe) 30 mg SUBCUT Q24H DAVID Glucose (Glucose Gel 15 Gm Gel..Gram.) 15 gm PO Q15M PRN; Protocol PRN Reason: per Hypoglycemia Standing Ord. Ceftriaxone Sodium 2 gm/ (Sodium Chloride) 50 mls @ 100 mls/hr IV Q24H DAVID Insulin Human Lispro (Insulin Lispro 100 Unit/Ml 3 Ml Vial) 0 unit SUBCUT QIDACHS REPLACED BY [facility]; Protocol Melatonin (Melatonin 3 Mg Tablet) 6 mg PO BEDTIME PRN PRN Reason: Insomnia Ondansetron HCl (Ondansetron Hcl 4 Mg/2 Ml Vial) 4 mg IVPUSH Q8H PRN PRN Reason: Nausea and Vomiting Pharmacy Consult (Consult Rx Perform Med Rec) 1 each MISCELLANE ONCE PRN PRN Reason: Consult order Sodium Chloride (0.9 % Sodium Chloride Flush 3 Ml Syringe) 3 ml IVFLUSH [facility] Home Medications Medication Instructions Recorded Confirmed Last Taken Type blood sugar diagnostic #10 ea 02/24/20 05/03/22 Unknown History insulin regular hum U-500 conc 500 0 - 450 unit subcut DAILY PRN for 02/24/20 05/03/22 01/21/22 History unit/mL subcutaneous soln insulin pump dapagliflozin 10 mg tablet 10 mg PO DAILY 10/12/21 05/03/22 01/21/22 History ([facility]) furosemide 40 mg tablet 40 mg PO DAILY 12/06/21 05/03/22 02/17/22 History gabapentin 300 mg capsule 300 mg PO BID 01/19/22 05/03/22 02/17/22 History Physical Exam Vital Signs and Narrative: Vital Signs: Last Vital Signs Temp 98.2 F 06/17/22 20:00 Pulse 75 06/17/22 20:00 Resp 16 06/17/22 20:00 BP 115/48 L 06/17/22 20:00 Pulse Ox 97 06/17/22 20:00 O2 Del Method 06/17/22 20:00 BMI result Body Mass Index 36.6 Elderly female lying in bed in no distress Neck supple, no JVD Regular rate and rhythm, S1-S2 heard Regular breath sounds bilaterally, no wheezing or crackles appreciated Abdomen soft nontender, no guarding, no rigidity Patient is drowsy but awakens to verbal stimulus, oriented to self, place, time and person ; no focal motor deficit Psych: Drowsy No pedal edema Results Labs 06/17/22 14:55 06/17/22 14:55 Labs: Laboratory Results - last 24 hr 06/17/22 06/17/22 06/17/22 14:55 14:55 14:55 MCV 90.9 MCH 29.1 MCHC 32.0 RDW 14.1 Plt Count 230 MPV 10.8 Immature Gran % (Auto) 0.7 H Neut % (Auto) 79.6 H Lymph % (Auto) 10.2 L [place] % (Auto) 9.3 Eos % (Auto) 0.0 Baso % (Auto) 0.2 Lymph # (Auto) 1.6 [place] # (Auto) 1.4 H Eos # (Auto) 0.0 Baso # (Auto) 0.0 Abs Immat Gran (auto) 0.10 H Absolute Neuts (auto) 12.2 H Absolute Nucleated RBC 0.000 Nucleated RBC % (auto) 0.0 PT 15.3 H INR 1.3 H Anion Gap 18 Estim Creat Clear Calc 26.1 Estimated GFR 21 POC Glucose Random Glucose 538 H* Lactic Acid Lactic Acid F/U @ 2Hr Calcium 9.3 Magnesium 2.2 Total Bilirubin 1.0 AST 17 ALT 19 Alkaline Phosphatase 64 Total Protein 8.1 H Albumin 3.8 Lipase 16 Urine Color Urine Appearance Urine pH Ur Specific [place] Urine Protein Urine Glucose (UA) Urine Ketones Urine Blood Urine Nitrite Ur Leukocyte Esterase Urine RBC Urine WBC Ur Squamous Epith Cells Urine Bacteria Hyaline Casts Acetone, Qual Negative COVID-19 (ORA) COVID-19 Clin Com Influenza Type A (JOSIE) Influenza Type B (JOSIE) Influenza A & B Note 06/17/22 06/17/22 06/17/22 14:55 17:22 17:27 MCV MCH MCHC RDW Plt Count MPV Immature Gran % (Auto) Neut % (Auto) Lymph % (Auto) [place] % (Auto) Eos % (Auto) Baso % (Auto) Lymph # (Auto) [place] # (Auto) Eos # (Auto) Baso # (Auto) Abs Immat Gran (auto) Absolute Neuts (auto) Absolute Nucleated RBC Nucleated RBC % (auto) PT INR Anion Gap Estim Creat Clear Calc Estimated GFR POC Glucose 418 H* Random Glucose Lactic Acid 2.9 H* Lactic Acid F/U @ 2Hr Calcium Magnesium Total Bilirubin AST ALT Alkaline Phosphatase Total Protein Albumin Lipase Urine Color Yellow Urine Appearance Clear Urine pH 8.0 Ur Specific [place] 1.020 Urine Protein 100 (2+) H Urine Glucose (UA) >=1000 H Urine Ketones Negative Urine Blood Moderate (2+) H Urine Nitrite Negative Ur Leukocyte Esterase Trace H Urine RBC 0-2 Urine WBC 6-10 Ur Squamous Epith Cells 0-2 Urine Bacteria None Seen Hyaline Casts 0-2 Acetone, Qual COVID-19 (ORA) COVID-19 Clin Com Influenza Type A (JOSIE) Influenza Type B (JOSIE) Influenza A & B Note 06/17/22 06/17/22 06/17/22 17:28 17:28 17:59 MCV MCH MCHC RDW Plt Count MPV Immature Gran % (Auto) Neut % (Auto) Lymph % (Auto) [place] % (Auto) Eos % (Auto) Baso % (Auto) Lymph # (Auto) [place] # (Auto) Eos # (Auto) Baso # (Auto) Abs Immat Gran (auto) Absolute Neuts (auto) Absolute Nucleated RBC Nucleated RBC % (auto) PT INR Anion Gap Estim Creat Clear Calc Estimated GFR POC Glucose Random Glucose Lactic Acid Lactic Acid F/U @ 2Hr 1.3 Calcium Magnesium Total Bilirubin AST ALT Alkaline Phosphatase Total Protein Albumin Lipase Urine Color Urine Appearance Urine pH Ur Specific [place] Urine Protein Urine Glucose (UA) Urine Ketones Urine Blood Urine Nitrite Ur Leukocyte Esterase Urine RBC Urine WBC Ur Squamous Epith Cells Urine Bacteria Hyaline Casts Acetone, Qual COVID-19 (ORA) Positive A COVID-19 Clin Com See Note Influenza Type A (JOSIE) Negative Influenza Type B (JOSIE) Negative Influenza A & B Note See Note 06/17/22 06/17/22 18:28 20:53 MCV MCH MCHC RDW Plt Count MPV Immature Gran % (Auto) Neut % (Auto) Lymph % (Auto) [place] % (Auto) Eos % (Auto) Baso % (Auto) Lymph # (Auto) [place] # (Auto) Eos # (Auto) Baso # (Auto) Abs Immat Gran (auto) Absolute Neuts (auto) Absolute Nucleated RBC Nucleated RBC % (auto) PT INR Anion Gap Estim Creat Clear Calc Estimated GFR POC Glucose 375 H* 374 H* Random Glucose Lactic Acid Lactic Acid F/U @ 2Hr Calcium Magnesium Total Bilirubin AST ALT Alkaline Phosphatase Total Protein Albumin Lipase Urine Color Urine Appearance Urine pH Ur Specific [place] Urine Protein Urine Glucose (UA) Urine Ketones Urine Blood Urine Nitrite Ur Leukocyte Esterase Urine RBC Urine WBC Ur Squamous Epith Cells Urine Bacteria Hyaline Casts Acetone, Qual COVID-19 (ORA) COVID-19 Clin Com Influenza Type A (JOSIE) Influenza Type B (JOSIE) Influenza A & B Note Assessment and Plan (1) UTI (urinary tract infection): Status: Acute Plan This is a 61-year-old female with pertinent history of insulin-dependent diabetes mellitus, CAD status post CABG, chronic kidney disease, history of CVA, gout, essential hypertension, BRYNN on CPAP who presents to the emergency department for evaluation of fever and dysuria. #. Sepsis due to UTI: Failed outpatient p.o. antibiotics. Resuscitated with IV crystalloids in the ER. Continue empiric IV antibiotics. Blood culture and urine culture pending. Lactic acid obtained #. Acute metabolic encephalopathy in the setting of above: Monitor mentation and maintain sleep-wake cycle #.? Acute kidney injury on chronic kidney disease stage 4 -likely prerenal in the setting of intravascular volume depletion.? Monitor creatinine and urine output with IV crystalloid resuscitation.? Avoid nephrotoxins and hold lisinopril, furosemide and spironolactone #. Hyponatremia, likely hypovolemic: Monitor with fluid resuscitation #. Acute lactic acidosis: Due to sepsis. Resolved with fluid resuscitation #.? Type 2 insulin-dependent diabetes mellitus with hyperglycemia and neuropathy -on home insulin pump, also initiating sliding scale insulin.? Continue gabapentin #. COVID infection: Test date 06/17/2022: Patient is not hypoxemic and hence no indication for Decadron. #.? History of CVA #.? CAD status post CABG -on antiplatelet therapy and statin #.? Essential hypertension -continue amlodipine and metoprolol, hold lisinopril as above #.? Gout -on allopurinol, adjust dosage to kidney function #.? Obstructive sleep apnea -continue CPAP at bedtime Med rec pending DVT prophylaxis:? Lovenox 30 mg daily Diet:? Diabetic diet Code status:? Full code Admit as inpatient and will require two night minimum hospital stay for IV antibiotics Time Spent With Patient Time: Total time managing care of this patient today ____ minutes. Quality Stroke Does the patient have a stroke diagnosis?: No VTE Prior VTE?: No VTE Risk Level:: Medical - moderate - high VTE Device Contraindication: Treatment Not Indicated VTE Drug Contraindication: N/A - Med Ordered
[2022-06-17] MEDS: Enoxaparin Sodium 30 MG/0.3 ML SYRINGE SUBCUT (21:23)
[2022-06-17] MEDS: Insulin Lispro 100 UNIT/ML 3 ML VIAL SUBCUT (21:36)
--- NOTE | 2022-06-17 22:03 | PHA.MEDREC ---
MED REC COMPLETE, PATIENT DOES NOT CURRENTLY HAVE INSULIN PUMP ON Pharmacy Consult ? Medication Reconciliation Pharmacy has completed the medication reconciliation.
[2022-06-17] MEDS: Insulin Glargine,Hum.rec.anlog 100 UNIT/ML 10 ML VIAL 18 UNIT SUBCUT (22:11)
--- NOTE | 2022-06-17 23:34 | MHC.EDTECH ---
Pt purewick failed. Pt soiled with urine. Pt given pericare and new purewick applied. Pt bed pads changed and warm blanket given. Call pena in reach
[2022-06-18] MEDS: 0.9 % Sodium Chloride Flush 3 ML SYRINGE IVFLUSH ×3 (00:24→21:20)
[2022-06-18 00:25] VITALS: BP 126/52; PULSE 77; RESP 18; O2SAT 97
[2022-06-18 00:33] LABS: Glucose, Whole Blood 378 mg/dL (60-115)
--- NOTE | 2022-06-18 00:37 | PC.NURSE ---
This creative writer assumed care of this Pt at this time. Pt A&Ox4, denies any pain. Pt reports dry cough. Equal lung expansions, unlabored, LS clear. Skin is warm and dry. Afebrile. Daughter at bedside. VSS. Respiratory at bedside setting up c-pap.
[2022-06-18 00:40] VITALS: PULSE 77; RESP 16; O2SAT 97
--- NOTE | 2022-06-18 01:04 | PC.NURSE ---
Pt POC 378. Dr. Espinoza notified. No new orders at this time.
[2022-06-18] MEDS: Acetaminophen 325 MG TABLET 650 MG PO (01:46)
--- NOTE | 2022-06-18 03:00 | PC.NURSE ---
Pt reports 10/10 lower abd pain described as pressure. Medicated per JUN. Reports effectiveness.
[2022-06-18 05:42] LABS: MANUAL DIFF FLAG NO
[2022-06-18 05:46] LABS: Basophils Percent Auto 0.3 % (0-2); Eosinophils Absolute Auto 0.1 X10*3/uL (0.0-0.4); Eosinophils Percent Auto 0.4 % (0-4); Hematocrit 35.1 % (37.0-47.0); Hemoglobin 11.2 g/dl (12.0-16.0); Imm Gran Abs Auto 0.04 X10*3/uL (0.00-0.03); Imm Gran Pct Auto 0.3 % (0.0-0.4); Lymphocytes Absolute Auto 1.6 X10*3/uL (1.2-4.9); Lymphocytes Percent Auto 13.4 % (20-40); Mean Corpuscular HGB Conc 31.9 g/dl (31.0-35.0); Mean Corpuscular Hemoglobin 29.2 pg (27.0-33.0); Mean Corpuscular Volume 91.4 fL (80.0-98.0); Mean Platelet Volume 10.5 fL (9.4-12.3); Monocytes Absolute Auto 1.7 X10*3/uL (0.1-1.2); Monocytes Percent Auto 14.7 % (2-11); Neutrophils Absolute Auto 8.3 x10*3/uL (2.0-8.3); Neutrophils Percent Auto 70.9 % (45-73); Platelet Count 205 X10*3/uL (160-400); Red Blood Count 3.84 X10*6/uL (4.20-5.50); Red Cell Distribution Width 14.3 % (11.0-16.0); SCAN SMEAR FLAG 1; White Blood Count 11.7 X10*3/uL (4.8-10.8)
[2022-06-18 05:47] VITALS: BP 118/54; PULSE 79; RESP 17; TEMP 36.3; O2SAT 95
[2022-06-18 05:58] LABS: Anion Gap 16 (12-20); Blood Urea Nitrogen 32 mg/dL (9-16); Calcium 8.8 mg/dL (8.4-10.2); Carbon Dioxide 26 mmol/L (22-29); Chloride 98 mmol/L (96-108); Creatinine Clr Calc Pharmacy 28.8; Estimated Glomerular Filt Rate 23; Glucose Random 301 mg/dL (60-115); Potassium 5.3 mmol/L (3.3-5.1); Sodium 135 mmol/L (135-145)
[2022-06-18 07:20] LABS: Glucose, Whole Blood 272 mg/dL (60-115)
[2022-06-18] MEDS: Insulin Lispro 100 UNIT/ML 3 ML VIAL SUBCUT ×4 (07:22→21:20)
--- NOTE | 2022-06-18 08:05 | PC.NURSE ---
family remains at bedside. pt medicated per emar. resting comfortably in bed at this time. pt offered comode but states the [employer] is working. plan is for admission. denied having any questions at this time. pt did eat breakfast.
--- NOTE | 2022-06-18 10:13 | MHC.EDTECH ---
patient wash and cleaned ,bed change and patient up in recliner relaxing watching tv.
--- NOTE | 2022-06-18 10:47 | P.PNIM_ITS ---
Subjective Subjective Date of Service: 06/18/22 Interval History: Follow up Sepsis/UTI No c/o pain Review of Systems No new overnight event, No fevers Denies any abdominal pain or shortness of breath? or chest pain or or cough Physical Exam Vital Signs: Vital Signs: Last Vital Signs Temp 97.3 F 06/18/22 05:47 Pulse 79 06/18/22 05:47 Resp 17 06/18/22 05:47 BP 118/54 L 06/18/22 05:47 Pulse Ox 95 06/18/22 05:47 O2 Del Method 06/18/22 05:47 BMI result Body Mass Index 36.6 Appearing in no acute distress lung sounds are clear to auscultation heart regular rate rhythm, clear S1, S2 positive bowel sounds, abdomen is soft, nontender neuro patient is alert x3, no focal deficits Objective Data Active Medications Acetaminophen (Acetaminophen 325 Mg Tablet) 650 mg PO Q6H PRN PRN Reason: Pain, Mild (Pain Scale 1-3) Last Admin: 06/18/22 01:46 Dose: 650 mg Documented By: CHIDI Dextrose (Dextrose 50 % 25 Gm/50 Ml Syringe) 25 gm IVPUSH Q15M PRN; Protocol PRN Reason: per Hypoglycemia Standing Ord. Enoxaparin Sodium (Enoxaparin Sodium 30 Mg/0.3 Ml Syringe) 30 mg SUBCUT Q24H [facility] Last Admin: 06/17/22 21:23 Dose: 30 mg Documented By: JIA Glucose (Glucose Gel 15 Gm Gel..Gram.) 15 gm PO Q15M PRN; Protocol PRN Reason: per Hypoglycemia Standing Ord. Ceftriaxone Sodium 2 gm/ (Sodium Chloride) 50 mls @ 100 mls/hr IV Q24H [facility] Insulin Glargine (Insulin Glargine,Hum.Rec.Anlog 100 Unit/Ml 10 Ml Vial) 18 unit SUBCUT BEDTIME [facility] Last Admin: 06/17/22 22:11 Dose: 18 unit Documented By: JIA Insulin Human Lispro (Insulin Lispro 100 Unit/Ml 3 Ml Vial) 0 unit SUBCUT QIDACHS [facility]; Protocol Last Admin: 06/18/22 07:22 Dose: 6 unit Documented By: ANITA Melatonin (Melatonin 3 Mg Tablet) 6 mg PO BEDTIME PRN PRN Reason: Insomnia Ondansetron HCl (Ondansetron Hcl 4 Mg/2 Ml Vial) 4 mg IVPUSH Q8H PRN PRN Reason: Nausea and Vomiting Pharmacy Consult (Consult Rx Perform Med Rec) 1 each MISCELLANE ONCE PRN PRN Reason: Consult order Sodium Chloride (0.9 % Sodium Chloride Flush 3 Ml Syringe) 3 ml IVFLUSH QSHIFT [facility] Last Admin: 06/18/22 07:22 Dose: 3 ml Documented By: ANITA Labs 06/18/22 05:31 06/18/22 05:31 Labs: Laboratory Results - last 24 hr 06/17/22 06/17/22 06/17/22 14:55 14:55 14:55 MCV 90.9 MCH 29.1 MCHC 32.0 RDW 14.1 Plt Count 230 MPV 10.8 Immature Gran % (Auto) 0.7 H Neut % (Auto) 79.6 H Lymph % (Auto) 10.2 L [place] % (Auto) 9.3 Eos % (Auto) 0.0 Baso % (Auto) 0.2 Lymph # (Auto) 1.6 [place] # (Auto) 1.4 H Eos # (Auto) 0.0 Baso # (Auto) 0.0 Abs Immat Gran (auto) 0.10 H Absolute Neuts (auto) 12.2 H Absolute Nucleated RBC 0.000 Nucleated RBC % (auto) 0.0 PT 15.3 H INR 1.3 H Anion Gap 18 Estim Creat Clear Calc 26.1 Estimated GFR 21 POC Glucose Random Glucose 538 H* Lactic Acid Lactic Acid F/U @ 2Hr Calcium 9.3 Magnesium 2.2 Total Bilirubin 1.0 AST 17 ALT 19 Alkaline Phosphatase 64 Total Protein 8.1 H Albumin 3.8 Lipase 16 Urine Color Urine Appearance Urine pH Ur Specific [place] Urine Protein Urine Glucose (UA) Urine Ketones Urine Blood Urine Nitrite Ur Leukocyte Esterase Urine RBC Urine WBC Ur Squamous Epith Cells Urine Bacteria Hyaline Casts Acetone, Qual Negative COVID-19 ([facility]) COVID-19 Clin Com Influenza Type A (JOSIE) Influenza Type B (JOSIE) Influenza A & B Note 06/17/22 06/17/22 06/17/22 14:55 17:22 17:27 MCV MCH MCHC RDW Plt Count MPV Immature Gran % (Auto) Neut % (Auto) Lymph % (Auto) [place] % (Auto) Eos % (Auto) Baso % (Auto) Lymph # (Auto) [place] # (Auto) Eos # (Auto) Baso # (Auto) Abs Immat Gran (auto) Absolute Neuts (auto) Absolute Nucleated RBC Nucleated RBC % (auto) PT INR Anion Gap Estim Creat Clear Calc Estimated GFR POC Glucose 418 H* Random Glucose Lactic Acid 2.9 H* Lactic Acid F/U @ 2Hr Calcium Magnesium Total Bilirubin AST ALT Alkaline Phosphatase Total Protein Albumin Lipase Urine Color Yellow Urine Appearance Clear Urine pH 8.0 Ur Specific [place] 1.020 Urine Protein 100 (2+) H Urine Glucose (UA) >=1000 H Urine Ketones Negative Urine Blood Moderate (2+) H Urine Nitrite Negative Ur Leukocyte Esterase Trace H Urine RBC 0-2 Urine WBC 6-10 Ur Squamous Epith Cells 0-2 Urine Bacteria None Seen Hyaline Casts 0-2 Acetone, Qual COVID-19 ([facility]) COVID-19 Clin Com Influenza Type A (JOSIE) Influenza Type B (JOSIE) Influenza A & B Note 06/17/22 06/17/22 06/17/22 17:28 17:28 17:59 MCV MCH MCHC RDW Plt Count MPV Immature Gran % (Auto) Neut % (Auto) Lymph % (Auto) [place] % (Auto) Eos % (Auto) Baso % (Auto) Lymph # (Auto) [place] # (Auto) Eos # (Auto) Baso # (Auto) Abs Immat Gran (auto) Absolute Neuts (auto) Absolute Nucleated RBC Nucleated RBC % (auto) PT INR Anion Gap Estim Creat Clear Calc Estimated GFR POC Glucose Random Glucose Lactic Acid Lactic Acid F/U @ 2Hr 1.3 Calcium Magnesium Total Bilirubin AST ALT Alkaline Phosphatase Total Protein Albumin Lipase Urine Color Urine Appearance Urine pH Ur Specific [place] Urine Protein Urine Glucose (UA) Urine Ketones Urine Blood Urine Nitrite Ur Leukocyte Esterase Urine RBC Urine WBC Ur Squamous Epith Cells Urine Bacteria Hyaline Casts Acetone, Qual COVID-19 ([facility]A) Positive A COVID-19 [place] Com See Note Influenza Type A (JOSIE) Negative Influenza Type B (JOSIE) Negative Influenza A & B Note See Note 06/17/22 06/17/22 06/18/22 18:28 20:53 00:29 MCV MCH MCHC RDW Plt Count MPV Immature Gran % (Auto) Neut % (Auto) Lymph % (Auto) [place] % (Auto) Eos % (Auto) Baso % (Auto) Lymph # (Auto) [place] # (Auto) Eos # (Auto) Baso # (Auto) Abs Immat Gran (auto) Absolute Neuts (auto) Absolute Nucleated RBC Nucleated RBC % (auto) PT INR Anion Gap Estim Creat Clear Calc Estimated GFR POC Glucose 375 H* 374 H* 378 H* Random Glucose Lactic Acid Lactic Acid F/U @ 2Hr Calcium Magnesium Total Bilirubin AST ALT Alkaline Phosphatase Total Protein Albumin Lipase Urine Color Urine Appearance Urine pH Ur Specific [place] Urine Protein Urine Glucose (UA) Urine Ketones Urine Blood Urine Nitrite Ur Leukocyte Esterase Urine RBC Urine WBC Ur Squamous Epith Cells Urine Bacteria Hyaline Casts Acetone, Qual COVID-19 ([facility]) COVID-19 Clin Com Influenza Type A (JOSIE) Influenza Type B (JOSIE) Influenza A & B Note 06/18/22 06/18/22 06/18/22 05:31 05:31 07:15 MCV 91.4 MCH 29.2 MCHC 31.9 RDW 14.3 Plt Count 205 MPV 10.5 Immature Gran % (Auto) 0.3 Neut % (Auto) 70.9 Lymph % (Auto) 13.4 L [place] % (Auto) 14.7 H Eos % (Auto) 0.4 Baso % (Auto) 0.3 Lymph # (Auto) 1.6 [place] # (Auto) 1.7 H Eos # (Auto) 0.1 Baso # (Auto) 0.0 Abs Immat Gran (auto) 0.04 H Absolute Neuts (auto) 8.3 Absolute Nucleated RBC 0.000 Nucleated RBC % (auto) 0.0 PT INR Anion Gap 16 Estim Creat Clear Calc 28.8 Estimated GFR 23 POC Glucose 272 H Random Glucose 301 H Lactic Acid Lactic Acid F/U @ 2Hr Calcium 8.8 Magnesium Total Bilirubin AST ALT Alkaline Phosphatase Total Protein Albumin Lipase Urine Color Urine Appearance Urine pH Ur Specific [place] Urine Protein Urine Glucose (UA) Urine Ketones Urine Blood Urine Nitrite Ur Leukocyte Esterase Urine RBC Urine WBC Ur Squamous Epith Cells Urine Bacteria Hyaline Casts Acetone, Qual COVID-19 ([facility]) COVID-19 Clin Com Influenza Type A (JOSIE) Influenza Type B (JOSIE) Influenza A & B Note Microbiology Microbiology Results: Microbiology 06/17/22 15:43 Blood Culture - Preliminary Blood - Venous Prelim: GPC Gram Stain only Assessment and Plan (1) UTI (urinary tract infection): Status: Acute Plan This is a 61-year-old female with pertinent history of insulin-dependent diabetes mellitus, CAD status post CABG, chronic kidney disease, history of CVA, gout, essential hypertension, BRYNN on CPAP who presents to the emergency department for evaluation of fever and dysuria. GPC bacteremia 1/2 add doxycycline follow-up final cultures MRSA swab Sepsis due to UTI Failed outpatient p.o. antibiotics.? Resuscitated with IV crystalloids in the ER.? Continue empiric IV antibiotics.? Acute metabolic encephalopathy in the setting of above Monitor mentation and maintain sleep-wake cycle Acute kidney injury on chronic kidney disease stage 4 likely prerenal in the setting of intravascular volume depletion.? Monitor creatinine and urine output with IV crystalloid resuscitation.? Avoid nephrotoxins and hold lisinopril, furosemide and spironolactone Hyponatremia. resolved likely hypovolemic Monitor with fluid resuscitation Acute lactic acidosis Due to sepsis.? 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 Continue gabapentin COVID infection Test date 06/17/2022 Patient is not hypoxemic and hence no indication for Decadron. History of CVA CAD status post CABG on antiplatelet therapy and statin Essential hypertension continue amlodipine and metoprolol, hold lisinopril as above Gout on allopurinol, adjust dosage to kidney function Obstructive sleep apnea continue CPAP at bedtime DVT prophylaxis:? Lovenox [address] Rosas Code status:? Full code continued hospital stay for IV antibiotics Time Spent With Patient Time: Total time managing care of this patient today ____ minutes. Quality Stroke Does the patient have a stroke diagnosis?: No VTE Prior VTE?: No VTE Risk Level:: Medical - moderate - high VTE Device Contraindication: Treatment Not Indicated VTE Drug Contraindication: N/A - Med Ordered
[2022-06-18] MEDS: Sodium Zirconium Cyclosilicate 10 GM POWD.PACK PO (10:50)
[2022-06-18] MEDS: Aspirin Enteric Coated 81 MG TABLET.DR PO (12:44)
[2022-06-18] MEDS: Clopidogrel Bisulfate 75 MG TABLET PO (12:44)
[2022-06-18] MEDS: Gabapentin 300 MG CAPSULE PO ×2 (12:44→21:19)
[2022-06-18] MEDS: Ascorbic Acid 500 MG TABLET PO (12:44)
[2022-06-18] MEDS: Cholecalciferol (Vitamin D3) 25 MCG TABLET 50 MCG PO (12:44)
[2022-06-18] MEDS: Metoprolol Tartrate 50 MG TABLET PO ×2 (12:45→21:19)
[2022-06-18] MEDS: Furosemide 40 MG TABLET PO (12:45)
[2022-06-18 13:58] LABS: Glucose, Whole Blood 332 mg/dL (60-115)
[2022-06-18] MEDS: allopurinoL 300 MG TABLET PO (14:10)
[2022-06-18] MEDS: cefTRIAXone sodium 2 GM in 0.9 % Sodium Chloride 50 ML IV (14:10)
[2022-06-18 17:50] LABS: Glucose, Whole Blood 397 mg/dL (60-115)
--- NOTE | 2022-06-18 18:04 | PC.NURSE ---
report given- awaiting transport
[2022-06-18 18:47] LABS: Glucose, Whole Blood 422 mg/dL (60-115)
[2022-06-18 18:49] VITALS: BMI 40.1
--- NOTE | 2022-06-18 19:38 | PC.NURSE ---
1840 pt up to [place] floor, finished admission assessment and got POC 422. NAPRAPATH Ly Chiu notified and gave 10 units of insulin lispro per sliding scale. That was scheduled at 1630 but given late per NAPRAPATH approved
[2022-06-18 20:00] VITALS: BP 124/60; PULSE 84; RESP 18; TEMP 36.9; O2SAT 96
[2022-06-18 21:10] LABS: Glucose, Whole Blood 409 mg/dL (60-115)
[2022-06-18] MEDS: Amitriptyline HCl 25 MG TABLET PO (21:19)
[2022-06-18] MEDS: Insulin Glargine,Hum.rec.anlog 100 UNIT/ML 10 ML VIAL 18 UNIT SUBCUT (21:19)
[2022-06-18] MEDS: Ferrous Sulfate 324 MG TABLET.DR PO (21:19)
[2022-06-18] MEDS: Enoxaparin Sodium 30 MG/0.3 ML SYRINGE SUBCUT (21:20)
--- NOTE | 2022-06-18 23:31 | PC.NURSE ---
pt and daughter refusing sliding scale and lantus poc coverage, stateing they will use insulin pump, made aware order placed in [facility]ar, waiver signed and placed on chart.
[2022-06-18 23:39] VITALS: BP 141/60; PULSE 68; RESP 18; TEMP 36.9; O2SAT 95
[2022-06-19 02:16] LABS: Glucose, Whole Blood 133 mg/dL (60-115)
[2022-06-19 03:23] VITALS: BP 134/59; PULSE 71; RESP 18; TEMP 37.2; O2SAT 96
[2022-06-19 07:44] VITALS: BP 137/62; PULSE 82; RESP 18; TEMP 37.2; O2SAT 98
[2022-06-19 08:17] VITALS: PULSE 72; RESP 18; O2SAT 95
[2022-06-19 08:36] LABS: Anion Gap 16 (12-20); Blood Urea Nitrogen 41 mg/dL (9-16); Calcium 8.9 mg/dL (8.4-10.2); Carbon Dioxide 28 mmol/L (22-29); Chloride 96 mmol/L (96-108); Creatinine Clr Calc Pharmacy 30.8; Estimated Glomerular Filt Rate 24; Glucose Random 98 mg/dL (60-115); Potassium 4.3 mmol/L (3.3-5.1); Sodium 136 mmol/L (135-145)
[2022-06-19 09:13] LABS: MRSA Nasal PCR NEGATIVE (Negative); SA Nasal PCR NEGATIVE (Negative)
[2022-06-19] MEDS: Ascorbic Acid 500 MG TABLET PO (09:32)
[2022-06-19] MEDS: Aspirin Enteric Coated 81 MG TABLET.DR PO (09:32)
[2022-06-19] MEDS: Cholecalciferol (Vitamin D3) 25 MCG TABLET 50 MCG PO (09:32)
[2022-06-19] MEDS: lisinopriL 5 MG TABLET PO (09:32)
[2022-06-19] MEDS: amLODIPine Besylate 5 MG TABLET PO (09:32)
[2022-06-19] MEDS: allopurinoL 300 MG TABLET PO (09:32)
[2022-06-19] MEDS: Spironolactone 25 MG TABLET PO (09:32)
[2022-06-19] MEDS: Clopidogrel Bisulfate 75 MG TABLET PO (09:32)
[2022-06-19] MEDS: Atorvastatin Calcium 80 MG TABLET PO (09:33)
[2022-06-19] MEDS: 0.9 % Sodium Chloride Flush 3 ML SYRINGE IVFLUSH (09:33)
[2022-06-19] MEDS: Metoprolol Tartrate 50 MG TABLET PO ×2 (09:33→20:49)
[2022-06-19] MEDS: Ferrous Sulfate 324 MG TABLET.DR PO ×2 (09:33→20:49)
[2022-06-19] MEDS: Furosemide 40 MG TABLET PO (09:33)
[2022-06-19] MEDS: Gabapentin 300 MG CAPSULE PO ×2 (09:33→20:49)
--- NOTE | 2022-06-19 09:44 | PC.NURSE ---
Addendum entered by Raegan Cheney RN 06/19/22 10:00: made aware. Original Note: per daughter pt's insulin pump recorded blood sugar of 44 around 7:30 and that it's not a true reading . pt asymptomatic A&O and gave no insulin coverage. at around 9:30 pt blood sugar of 200 per daughter.
--- NOTE | 2022-06-19 10:40 | HO.PM.IMPN ---
Subjective Subjective Date of Service: 06/19/22 Interval History: Follow up Sepsis/UTI No c/o pain Review of Systems No new overnight event, No fevers Denies any abdominal pain or shortness of breath? or chest pain or or cough Physical Exam Vital Signs: Vital Signs: Last Vital Signs Temp 98.9 F 06/19/22 07:44 Pulse 82 06/19/22 07:44 Resp 18 06/19/22 08:17 BP 137/62 06/19/22 07:44 Pulse Ox 98 06/19/22 07:44 O2 Del Method 06/19/22 07:44 BMI result Body Mass Index 40.1 Appearing in no acute distress LSCTA heart regular rate rhythm, clear S1, S2 positive bowel sounds, abdomen is soft, nontender neuro patient is alert x3, no focal deficits Objective Data Active Medications Acetaminophen (Acetaminophen 325 Mg Tablet) 650 mg PO Q6H PRN PRN Reason: Pain, Mild (Pain Scale 1-3) Last Admin: 06/18/22 01:46 Dose: 650 mg Documented By: CHIDI Allopurinol (Allopurinol 300 Mg Tablet) 300 mg PO DAILY [facility] Last Admin: 06/19/22 09:32 Dose: 300 mg Documented By: JAMIL Amitriptyline HCl (Amitriptyline Hcl 25 Mg Tablet) 25 mg PO BEDTIME [facility] Last Admin: 06/18/22 21:19 Dose: 25 mg Documented By: KEVIN Amlodipine Besylate (Amlodipine Besylate 5 Mg Tablet) 5 mg PO DAILY [facility]; Protocol Last Admin: 06/19/22 09:32 Dose: 5 mg Documented By: JAMIL Ascorbic Acid (Ascorbic Acid 500 Mg Tablet) 500 mg PO DAILY [facility] Last Admin: 06/19/22 09:32 Dose: 500 mg Documented By: JAMIL Aspirin (Aspirin Enteric Coated 81 Mg Tablet.) 81 mg PO DAILY [facility] Last Admin: 06/19/22 09:32 Dose: 81 mg Documented By: JAMIL Atorvastatin Calcium (Atorvastatin Calcium 80 Mg Tablet) 80 mg PO DAILY [facility] Last Admin: 06/19/22 09:33 Dose: 80 mg Documented By: JAMIL Clopidogrel Bisulfate (Clopidogrel Bisulfate 75 Mg Tablet) 75 mg PO DAILY [facility] Last Admin: 06/19/22 09:32 Dose: 75 mg Documented By: JAMIL Dextrose (Dextrose 50 % 25 Gm/50 Ml Vial) 25 gm IVPUSH Q15M PRN; Protocol PRN Reason: per Hypoglycemia Standing Ord. Enoxaparin Sodium (Enoxaparin Sodium 30 Mg/0.3 Ml Syringe) 30 mg SUBCUT Q24H [facility] Last Admin: 06/18/22 21:20 Dose: 30 mg Documented By: KEVIN Ferrous Sulfate (Ferrous Sulfate 324 Mg Tablet.) 324 mg PO BID [facility] Last Admin: 06/19/22 09:33 Dose: 324 mg Documented By: JAMIL Furosemide (Furosemide 40 Mg Tablet) 40 mg PO DAILY [facility]; Protocol Last Admin: 06/19/22 09:33 Dose: 40 mg Documented By: JAMIL Gabapentin (Gabapentin 300 Mg Capsule) 300 mg PO BID [facility] Last Admin: 06/19/22 09:33 Dose: 300 mg Documented By: JAMIL Glucose (Glucose Gel 15 Gm Gel..Gram.) 15 gm PO Q15M PRN; Protocol PRN Reason: per Hypoglycemia Standing Ord. Ceftriaxone Sodium 2 gm/ (Sodium Chloride) 50 mls @ 100 mls/hr IV Q24H [facility] Last Infusion: 06/18/22 14:38 Dose: 0 mls/hr Documented By: ANITA Insulin Pump (Subcutaneous Insulin Pump) 1 each SUBCUT QIDACHS [facility]; Protocol Last Admin: 06/19/22 09:44 Dose: Not Given Documented By: JAMIL Non-Admin Reason: pt managing own sugars. Lactulose (Lactulose 20 Gm/30 Ml Solution) 10 gm PO BEDTIME PRN PRN Reason: constipation Lisinopril (Lisinopril 5 Mg Tablet) 5 mg PO DAILY [facility]; Protocol Last Admin: 06/19/22 09:32 Dose: 5 mg Documented By: JAMIL Melatonin (Melatonin 3 Mg Tablet) 6 mg PO BEDTIME PRN PRN Reason: Insomnia Metoprolol Tartrate (Metoprolol Tartrate 50 Mg Tablet) 50 mg PO BID [facility]; Protocol Last Admin: 06/19/22 09:33 Dose: 50 mg Documented By: JAMIL Non-Formulary Medication (Dapagliflozin [Farxiga]) 10 mg PO DAILY [facility] Ondansetron HCl (Ondansetron Hcl 4 Mg/2 Ml Vial) 4 mg IVPUSH Q8H PRN PRN Reason: Nausea and Vomiting Pharmacy Consult (Consult Rx Perform Med Rec) 1 each MISCELLANE ONCE PRN PRN Reason: Consult order Senna (Sennosides 8.6 Mg Tablet) 17.2 mg PO BEDTIME PRN PRN Reason: constipation Sodium Chloride (0.9 % Sodium Chloride Flush 3 Ml Syringe) 3 ml IVFLUSH QSHIFT [facility] Last Admin: 06/19/22 09:33 Dose: 3 ml Documented By: JAMIL Spironolactone (Spironolactone 25 Mg Tablet) 25 mg PO DAILY [facility]; Protocol Last Admin: 06/19/22 09:32 Dose: 25 mg Documented By: JAMIL Vitamin D (Cholecalciferol (Vitamin D3) 25 Mcg Tablet) 50 mcg PO DAILY [facility] Last Admin: 06/19/22 09:32 Dose: 50 mcg Documented By: JAMIL Labs 06/18/22 05:31 06/19/22 08:08 Labs: Laboratory Results - last 24 hr 06/18/22 06/18/22 06/18/22 13:53 16:36 17:46 Anion Gap Estim Creat Clear Calc Estimated GFR POC Glucose 332 H 397 H* Random Glucose Calcium Nasal Screen MRSA (PCR) NEGATIVE Nasal S. aureus Screen NEGATIVE Nasal MRSA/S.aureus Interp SEE NOTE 06/18/22 06/18/22 06/19/22 18:42 21:06 02:11 Anion Gap Estim Creat Clear Calc Estimated GFR POC Glucose 422 H* 409 H* 133 H Random Glucose Calcium Nasal Screen MRSA (PCR) Nasal S. aureus Screen Nasal MRSA/S.aureus Interp 06/19/22 08:08 Anion Gap 16 Estim Creat Clear Calc 30.8 Estimated GFR 24 POC Glucose Random Glucose 98 Calcium 8.9 Nasal Screen MRSA (PCR) Nasal S. aureus Screen Nasal MRSA/S.aureus Interp Microbiology Microbiology Results: Microbiology 06/17/22 15:43 Blood Culture - Preliminary Blood - Venous No growth after 24 hours. 06/17/22 15:43 Blood Culture - Preliminary Blood - Venous Prelim: GPC Gram Stain only Assessment and Plan (1) UTI (urinary tract infection): Status: Acute Plan This is a 61-year-old female with pertinent history of insulin-dependent diabetes mellitus, CAD status post CABG, chronic kidney disease, history of CVA, gout, essential hypertension, BRYNN on CPAP who presents to the emergency department for evaluation of fever and dysuria. GPC bacteremia 1/2 add doxycycline follow-up final cultures MRSA swab neg Sepsis due to UTI Failed outpatient p.o. antibiotics.? Resuscitated with IV crystalloids in the ER.? Continue empiric IV antibiotics.? Acute metabolic encephalopathy in the setting of above Monitor mentation and maintain sleep-wake cycle Acute kidney injury on chronic kidney disease stage 4 likely prerenal in the setting of intravascular volume depletion.? Monitor creatinine and urine output with IV crystalloid resuscitation.? Avoid nephrotoxins and hold lisinopril, furosemide and spironolactone Hyponatremia. resolved likely hypovolemic Monitor with fluid resuscitation Acute lactic acidosis Due to sepsis.? 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 Continue gabapentin COVID infection Test date 06/17/2022 Patient is not hypoxemic and hence no indication for Decadron. History of CVA CAD status post CABG on antiplatelet therapy and statin Essential hypertension continue amlodipine and metoprolol, hold lisinopril as above Gout on allopurinol, adjust dosage to kidney function Obstructive sleep apnea continue CPAP at bedtime DVT prophylaxis:? Lovenox [address] Rosas Code status:? Full code continued hospital stay for IV antibiotics Time Spent With Patient Time: Total time managing care of this patient today ____ minutes. Quality Stroke Does the patient have a stroke diagnosis?: No VTE Prior VTE?: No VTE Risk Level:: Medical - moderate - high VTE Device Contraindication: Treatment Not Indicated VTE Drug Contraindication: N/A - Med Ordered
[2022-06-19] MEDS: Doxycycline Hyclate 100 MG in 0.9 % Sodium Chloride 250 ML 166.67 MG IV (12:20)
--- NOTE | 2022-06-19 12:25 | PC.NURSE ---
per daughter pt's glucometer reads 204, no insulin cover was administered.
[2022-06-19 16:00] VITALS: BP 122/67; PULSE 78; RESP 17; TEMP 36.9; O2SAT 98
--- NOTE | 2022-06-19 16:19 | MHC.CM.PN ---
Addendum entered by Evi Radford 06/19/22 16:21: PER EMR PT IS CONNECTED WITH [facility], AN ADULT [facility] C[facility] PROGRAM, AND A NURSE CHECKS IN PERIODICALLY PT USES A WALKER IN AND OUTSIDE OF HOME, HAS A CPAP, SHOWER CHAIR AND HOME MODS, DTR REPORTS SHE ASSISTS HER MOTHER W/ALL NEEDS AND DENIES NEED FOR SERVICES AT THIS TIME. PT VERIFIES PCP CHELA MONZON X3, HCP IS DTR [facility] AND COPY ON FILE. ANTIC PT MAY NEED TO FOLLOW-UP W/WOUND CLINIC D/C PLAN: HOME NO SERVICES W/[facility]TR [facility] FOR TRANSPORT Original Note: PATIENT COVID-19 + CM ATTEMPTED TO CONTACT PT AND DAUGHTER AT NUMBER LISTED [phone] VM MESSAGE LEFT REQUESTING RETURN CALL
[2022-06-19 17:07] LABS: Glucose, Whole Blood 185 mg/dL (60-115)
--- NOTE | 2022-06-19 17:45 | PC.NURSE ---
16:30 daughter states her sugar was in the 100s. no coverage was administered.
[2022-06-19 20:00] VITALS: BP 125/60; PULSE 70; RESP 20; TEMP 36.6; O2SAT 97
[2022-06-19] MEDS: cefTRIAXone sodium 2 GM in 0.9 % Sodium Chloride 50 ML IV (20:48)
[2022-06-19] MEDS: Amitriptyline HCl 25 MG TABLET PO (20:49)
[2022-06-19] MEDS: Enoxaparin Sodium 30 MG/0.3 ML SYRINGE SUBCUT (21:00)
[2022-06-19 21:03] LABS: Glucose, Whole Blood 150 mg/dL (60-115)
[2022-06-19 23:40] VITALS: PULSE 76; RESP 20; O2SAT 95
[2022-06-20 00:23] VITALS: BP 143/65; RESP 18; TEMP 36.1; O2SAT 95
[2022-06-20 00:29] LABS: Glucose, Whole Blood 59 mg/dL (60-115)
[2022-06-20 00:51] LABS: Glucose, Whole Blood 80 mg/dL (60-115)
--- NOTE | 2022-06-20 01:38 | PC.NURSE ---
2100 poc 150, patient is on home insulin pump. At 0020, patient's daughter reported patient's pump is showing a low sugar. On assessment patient asymptomatic, alert and oriented. Sugar checked at 0023 poc 59, orange juice and crackers given to patient. 15 minutes later, poc rechecked, poc 80. Patient remained alert and oriented the entire time. Hospitalist notified.
[2022-06-20 07:29] VITALS: BP 121/60; PULSE 62; RESP 20; TEMP 36.2; O2SAT 97
[2022-06-20 07:31] LABS: Anion Gap 15 (12-20); Blood Urea Nitrogen 49 mg/dL (9-16); Calcium 8.9 mg/dL (8.4-10.2); Carbon Dioxide 26 mmol/L (22-29); Chloride 97 mmol/L (96-108); Creatinine Clr Calc Pharmacy 33.1; Estimated Glomerular Filt Rate 26; Glucose Random 148 mg/dL (60-115); Potassium 4.4 mmol/L (3.3-5.1); Sodium 134 mmol/L (135-145)
[2022-06-20 07:42] LABS: Glucose, Whole Blood 140 mg/dL (60-115)
[2022-06-20] MEDS: Furosemide 40 MG TABLET PO (09:02)
[2022-06-20] MEDS: 0.9 % Sodium Chloride Flush 3 ML SYRINGE IVFLUSH ×2 (09:02)
[2022-06-20] MEDS: lisinopriL 5 MG TABLET PO (09:02)
[2022-06-20] MEDS: Spironolactone 25 MG TABLET PO (09:02)
[2022-06-20] MEDS: Clopidogrel Bisulfate 75 MG TABLET PO (09:03)
[2022-06-20] MEDS: Atorvastatin Calcium 80 MG TABLET PO (09:03)
[2022-06-20] MEDS: Ascorbic Acid 500 MG TABLET PO (09:03)
[2022-06-20] MEDS: Cholecalciferol (Vitamin D3) 25 MCG TABLET 50 MCG PO (09:03)
[2022-06-20] MEDS: Metoprolol Tartrate 50 MG TABLET PO (09:03)
[2022-06-20] MEDS: Aspirin Enteric Coated 81 MG TABLET.DR PO (09:03)
[2022-06-20] MEDS: Gabapentin 300 MG CAPSULE PO (09:03)
[2022-06-20] MEDS: amLODIPine Besylate 5 MG TABLET PO (09:03)
[2022-06-20] MEDS: Ferrous Sulfate 324 MG TABLET.DR PO (09:03)
[2022-06-20] MEDS: allopurinoL 300 MG TABLET PO (09:03)
--- NOTE | 2022-06-20 09:51 | MHC.CM.PN ---
pt dcd home no skilled servceis ordered by
--- NOTE | 2022-06-20 09:58 | PC.NURSE ---
per daughter pt's insulin pump was 147 at 07:30. when asked if insulin was given she stated yes, 5 units because she ate breakfast .
--- NOTE | 2022-06-20 10:46 | P.DS_ITS ---
DS: Providers Provider Date of Service: 06/20/22 Date of admission: 06/17/22 21:04 Primary care physician: Shara Grimes MD Attending physician on discharge: James Carvajal Discharging clinician: Ly Chiu DS: Diagnosis Discharge Diagnosis (1) UTI (urinary tract infection): Status: Acute DS: Summary Hospital Course Hospital Course: HP as per admitting provider This is a 61-year-old female with pertinent hi story of insulin-dependent diabetes mellitus, CAD status post CABG, chronic kidney disease, history of CVA, gout, essential hypertension, BRYNN on CPAP who presents to the emergency department for evaluation of fever and dysuria.? Patient was seen in the ER 2 days ago for UTI and was sent home with oral Levaquin.? Patient took p.o. antibiotics but states her symptoms progressed and she continued to have dysuria, increased urinary frequency.? Also had associated drowsiness, fever, chills and episodes of nausea and vomiting.? Denies abdominal pain or diarrhea.? Patient without chest discomfort, palpitations, shortness of breath or changes in bowel habits. In the emergency department, patient was found to be septic . Sepsis due to Ecoli UTI Failed outpatient p.o. antibiotics.? Resuscitated with IV crystalloids in the ER and treated with IV rocephin Home with 4 more days of ceftin Acute metabolic encephalopathy in the setting of above resolved Acute kidney injury on chronic kidney disease stage 4 likely prerenal in the setting of intravascular volume depletion.? Hyponatremia. resolved likely hypovolemic Acute lactic acidosis Due to sepsis.? Resolved with fluid resuscitation Type 2 insulin-dependent diabetes mellitus with hyperglycemia and neuropathy continue home medications COVID infection Test date 06/17/2022 Patient is not hypoxemic and hence no indication for Decadron. History of CVA CAD status post CABG on antiplatelet therapy and statin Essential hypertension continue amlodipine and metoprolol, hold lisinopril as above Gout on allopurinol Obstructive sleep apnea continue CPAP at bedtime Time Spent with Patient Time attestation: Total time managing care of this patient today ____ minutes. Discharge coordination time: Greater than 30 minutes Quality: Safe Use of Opioids Does Pt have an Active Cancer Diagnosis on the Problem List?: No Quality: Stroke Does the patient have a stroke diagnosis?: No Physical Exam Vital Signs: Vital Signs: Last Vital Signs Temp 97.1 F 06/20/22 07:29 Pulse 62 06/20/22 07:29 Resp 20 06/20/22 07:29 BP 121/60 06/20/22 07:29 Pulse Ox 97 06/20/22 07:29 O2 Del Method 06/20/22 07:29 BMI result Body Mass Index 40.1 Appearing in no acute distress head is normocephalic atraumatic eyes pupils are PERRLA sclera is anicteric mouth throat mucous membranes are intact and moist neck is supple no lymphadenopathy, no JVD noted lung sounds are clear to auscultation heart regular rate rhythm, clear S1, S2 positive bowel sounds, abdomen is soft, nontender neuro patient is alert x3, no focal deficits DS: Data Data Completed and Pending Labs on day of discharge: Laboratory Results - last 24 hr 06/19/22 06/19/22 06/20/22 17:00 20:58 00:23 Sodium Potassium Chloride Carbon Dioxide Anion Gap BUN Creatinine Estim Creat Clear Calc Estimated GFR POC Glucose 185 H 150 H 59 L* Random Glucose Calcium 06/20/22 06/20/22 06/20/22 00:45 06:43 07:36 Sodium 134 L Potassium 4.4 Chloride 97 Carbon Dioxide 26 Anion Gap 15 BUN 49 H Creatinine 1.99 H Estim Creat Clear Calc 33.1 Estimated GFR 26 POC Glucose 80 140 H Random Glucose 148 H Calcium 8.9 Preliminary micro results at discharge 06/17/22 15:43 Blood Culture - Preliminary Blood - Venous No growth after 48 hours. Discharge Plan Discharge Anticipated Discharge Date/Time: 06/20/22 10:08 Patient Disposition: Home, Self-Care Discharge Diagnosis: E coli UTI Sepsis Metabolic encephalopathy SARAH on CKD stage 4 Hyponatremia Lactic acidosis COVID-19 Referrals: Shara Verdugo MD [Primary Care Provider] - 1 Week Discharge Medications: New cefuroxime axetil 500 mg tablet 500 mg PO BID Qty: 8 0RF Continued (DME) Shower Chair Misc See Rx Instructions .ROUTE .MEDSUPPLY Qty: 1 0RF Rx Instructions: As directed (DME) walker Misc See Rx Instructions .ROUTE .MEDSUPPLY Qty: 1 0RF Rx Instructions: with seat and wheels lactulose 10 gram/15 mL solution 10 g PO BEDTIME PRN (Reason: constipation) 30 Days Qty: 450 2RF amlodipine 5 mg tablet 5 mg PO DAILY 90 Days Qty: 90 3RF Rx Instructions: Reduction in dose metoprolol tartrate 25 mg tablet 50 mg PO BID 90 Days Qty: 360 3RF sennosides [Senna Laxative] 8.6 mg tablet 17.2 mg PO BEDTIME PRN (Reason: constipation) 30 Days Qty: 60 5RF allopurinol 300 mg tablet 300 mg PO DAILY Qty: 30 6RF aspirin 81 mg tablet,delayed release (DR/EC) 81 mg PO DAILY Qty: 30 6RF cholecalciferol (vitamin D3) 50 mcg (2,000 unit) capsule 50 mcg PO DAILY 90 Days Qty: 90 2RF spironolactone 25 mg tablet 25 mg PO DAILY Qty: 90 11RF rosuvastatin 40 mg tablet 40 mg PO DAILY 90 Days Qty: 90 3RF ferrous sulfate 325 mg (65 mg iron) tablet 325 mg PO BID Qty: 60 3RF clopidogrel [Plavix] 75 mg tablet 75 mg PO DAILY Qty: 90 1RF amitriptyline 25 mg Tablet 25 mg PO BEDTIME ascorbic acid (vitamin C) [Vitamin C With Allie Hips] 500 mg Tablet 500 mg PO DAILY lisinopril 5 mg tablet 5 mg PO DAILY 90 Days Qty: 90 3RF Hold Instructions: Resume on 01/24/22. please repeat bmp and will need nephrology clearence before starting lisinopril furosemide 40 mg tablet 40 mg PO DAILY Hold Instructions: Resume on 01/31/22. hold and repeat bmp ,follow up with nephrology before staring lasix. insulin regular hum U-500 conc 500 unit/mL solution 0 - 450 unit subcut DAILY PRN (Reason: for insulin pump) (DME) blood sugar diagnostic Strip See Rx Instructions Not Applicable .MEDSUPPLY Qty: 10 Rx Instructions: As directed gabapentin 300 mg capsule 300 mg PO BID Farxiga 10 mg tablet 10 mg PO DAILY Discontinued cefpodoxime 200 mg tablet 200 mg PO BID 7 Days Qty: 14 0RF Rx Instructions: must administer with a meal/food Discharge Orders: Discharge Order (Routine); Ordered 06/20/22 Ordered By: Ly Chiu Diet: Advance to usual diet Activity on Discharge: As tolerated Stand Alone Forms: Patient Portal Discharge page Care Plan Goals: complete resolution of symptoms Health Concerns: E coli UTI Sepsis Metabolic encephalopathy SARAH on CKD stage 4 Hyponatremia Lactic acidosis COVID-19 Plan of Treatment: Follow-up with primary care provider as needed Take all medications as prescribed Assessment: see discharge summary
--- NOTE | 2022-06-20 11:58 | PC.NURSE ---
per daughter insulin pump at 11:30 was 213, and administered 2.2 units of insulin because pt is having lunch.
[2022-06-20] MEDS: Doxycycline Hyclate 100 MG in 0.9 % Sodium Chloride 250 ML 166.67 MG IV ×2 (12:23)
--- NOTE | 2022-06-21 21:51 | P.EN_ITS ---
Event Note Date of Service: 06/21/22 Event Note: Pt blood cultures showed positive results with pre-whittaker cultures showing gram positive cocci in clusters in 2 bottles. spoke to pt with the help oif her daughter over the phone who is her health care proxy. pt states she is feeling better, no new symptoms, urinary symptoms resolved. I still encouraged her to return to hospital for rpt cultures and possible IV abx . She does not want to come tonight. States she will come in the morning. I rptead the need and impr otance for rpt cultures and pt daughter and herself understand and will come back to ED in AM. Time Spent With Patient Time: Total time managing care of this patient today ____ minutes.
== END 2022-06-20 14:57 | disposition home or self-care (01) | DRG 720 ==
LOC: HO.ED 22:09 → HO.EDOVER 22:12 → HO.IMC 06-18 16:58
PROVIDERS: Physician Assistant Medical; Admitting Provider Student in an Organized Health Care Education/Training Program; Emergency Provider Emergency Medicine; PCP Internal Medicine; Visit Provider Nurse Practitioner Acute Care
DX: A41.51 Sepsis due to Escherichia coli [E. coli] (principal); N17.9 Acute kidney failure, unspecified; E87.1 Hypo-osmolality and hyponatremia; E11.22 Type 2 diabetes mellitus with diabetic chronic kidney disease; E11.40 Type 2 diabetes mellitus with diabetic neuropathy, unspecified; I12.9 Hypertensive chronic kidney disease with stage 1 through stage 4 chronic kidney disease, or unspecified chronic kidney disease; N18.4 Chronic kidney disease, stage 4 (severe); N39.0 Urinary tract infection, site not specified; G47.33 Obstructive sleep apnea (adult) (pediatric); E11.65 Type 2 diabetes mellitus with hyperglycemia; E86.1 Hypovolemia; I25.10 Atherosclerotic heart disease of native coronary artery without angina pectoris; Z95.5 Presence of coronary angioplasty implant and graft; Z95.1 Presence of aortocoronary bypass graft; Z86.73 Personal history of transient ischemic attack (TIA), and cerebral infarction without residual deficits; Z79.82 Long term (current) use of aspirin; Z79.4 Long term (current) use of insulin; Z79.899 Other long term (current) drug therapy
CPT/HCPCS: 36415; 71045; 80048; 80053; 81001; 82009; 82947; 83605; 83690; 83735; 85025; 85610; 87040; 87147; 87205; 87502; 87635; 87640; 87641; 94660; 99285; J0696; J1650

== ENCOUNTER 2022-06-22 12:28 | Emergency (ER) | payer OTHER, SELFPAY ==
[2022-06-22 13:02] VITALS: BP 116/45; PULSE 64; RESP 16; TEMP 36.1; O2SAT 97; BMI 39.6
--- NOTE | 2022-06-22 13:03 | ED_ITS ---
HPI - General Adult General Chief complaint: General Medical Stated complaint: Abnormal labs Related Data Home Medications Medication Instructions Recorded Confirmed blood sugar diagnostic #10 ea 02/24/20 05/03/22 insulin regular hum U-500 conc 500 0 - 450 unit subcut DAILY PRN for 02/24/20 06/17/22 unit/mL subcutaneous soln insulin pump dapagliflozin 10 mg tablet 10 mg PO DAILY 10/12/21 06/17/22 (Farxiga) furosemide 40 mg tablet 40 mg PO DAILY 12/06/21 06/17/22 gabapentin 300 mg capsule 300 mg PO BID 01/19/22 06/17/22 amitriptyline 25 mg tablet 25 mg PO BEDTIME 06/17/22 06/17/22 ascorbic acid (vitamin C) 500 mg 500 mg PO DAILY 06/17/22 06/17/22 tablet (Vitamin C With Allie Hips) Previous Rx's Medication Instructions Recorded Shower Chair #1 ea 10/27/20 walker #1 ea 10/27/20 lisinopril 5 mg tablet 5 mg PO DAILY 90 days #90 tabs 03/18/21 amlodipine 5 mg tablet 5 mg PO DAILY 90 days #90 tabs 10/25/21 lactulose 10 gram/15 mL oral 10 g (15 mL) PO BEDTIME PRN 10/25/21 solution constipation 30 days #450 mL metoprolol tartrate 25 mg tablet 50 mg PO BID 90 days #360 tabs 12/25/21 allopurinol 300 mg tablet 300 mg PO DAILY #30 tabs 02/08/22 sennosides 8.6 mg tablet (Senna 17.2 mg PO BEDTIME PRN 02/08/22 Laxative) constipation 30 days #60 tabs clopidogrel 75 mg tablet (Plavix) 75 mg PO DAILY #90 tabs 02/17/22 aspirin 81 mg tablet,delayed 81 mg PO DAILY #30 tabs 03/25/22 release cholecalciferol (vitamin D3) 50 50 mcg PO DAILY 90 days #90 caps 03/25/22 mcg (2,000 unit) capsule spironolactone 25 mg tablet 25 mg PO DAILY #90 tabs 03/28/22 rosuvastatin 40 mg tablet 40 mg PO DAILY 90 days #90 tabs 05/03/22 ferrous sulfate 325 mg (65 mg 325 mg PO BID #60 tabs 05/20/22 iron) tablet cefuroxime axetil 500 mg tablet 500 mg PO BID #8 tabs 06/20/22 Allergies Allergy/AdvReac Type Severity Reaction Status Date / Time lactose Allergy Intermediate Vomiting Verified 06/22/22 13:08 amlodipine Allergy Mild leg edema Verified 06/22/22 13:08 liraglutide [From VICTOZA] Allergy Mild VOMITING RUBI Verified 06/22/22 13:08 [facility] Past Medical History Medical History Arthritis Asthma CAD (coronary artery disease) Cerebrovascular accident (CVA) due to occlusion of left middle cerebral artery CKD (chronic kidney disease) CKD (chronic kidney disease) stage 4, GFR 15-29 ml/min Diabetes Gout Hypercholesteremia Hypertension Lumbar degenerative disc disease BRYNN (obstructive sleep apnea) Right hemiparesis Sinusitis Skin lesion Stroke Surgical History H/O colonoscopy H/O right breast biopsy History of bilateral tubal ligation History of cataract surgery History of coronary angioplasty with insertion of stent History of esophagogastroduodenoscopy (EGD) History of heart surgery Family History Family History Father Stroke Mother Myocardial infarction Paternal Uncle Cancer Social History Social History Household Members: Family Housing: House Are you a primary medical care manager to a significant other at home: No Do you presently have visiting nurse or other home services: No Alcohol intake: never Patient Tobacco Use Status: Never used Tobacco e-Cigarette/Vaping Use: Never Used Second Hand Smoke Exposure: No Advance Directives Date on File: 01/25/22 service: No Current occupational status: unemployed and disabled Sexual orientation: Straight/Heterosexual Gender identity: Female Cognitive needs: Yes Hearing needs: No Vision needs: No Physical Exam ED Vital Signs: Vital Signs - 24 hr 06/22/22 13:02 Temperature 97.0 F Pulse Rate 64 Respiratory Rate 16 Blood Pressure 116/45 L Pulse Oximetry 97 Oxygen Delivery Method Room Air BMI result Body Mass Index 39.6 Course Course Course Narrative: RME: 61 y/o F, hx of CAD, DMII, CKD, presents today for re-evaluation of +blood cultures from 06/17/22. She called last night to return to have repeat blood culture drawn. 1 of 2 cultures with coag neg staph and gram neg elian, likely contaminants. VSS in triage. Blood cultures ordered. Patient is stable to return back to the waiting room until room becomes available. Discharge Plan Discharge Prescriptions: No Action (DME) Shower Chair Misc See Rx Instructions .ROUTE .MEDSUPPLY Qty: 1 0RF Rx Instructions: As directed (DME) walker Misc See Rx Instructions .ROUTE .MEDSUPPLY Qty: 1 0RF Rx Instructions: with seat and wheels lactulose 10 gram/15 mL solution 10 g PO BEDTIME PRN (Reason: constipation) 30 Days Qty: 450 2RF amlodipine 5 mg tablet 5 mg PO DAILY 90 Days Qty: 90 3RF Rx Instructions: Reduction in dose metoprolol tartrate 25 mg tablet 50 mg PO BID 90 Days Qty: 360 3RF sennosides [Senna Laxative] 8.6 mg tablet 17.2 mg PO BEDTIME PRN (Reason: constipation) 30 Days Qty: 60 5RF allopurinol 300 mg tablet 300 mg PO DAILY Qty: 30 6RF aspirin 81 mg tablet,delayed release (DR/EC) 81 mg PO DAILY Qty: 30 6RF cholecalciferol (vitamin D3) 50 mcg (2,000 unit) capsule 50 mcg PO DAILY 90 Days Qty: 90 2RF spironolactone 25 mg tablet 25 mg PO DAILY Qty: 90 11RF rosuvastatin 40 mg tablet 40 mg PO DAILY 90 Days Qty: 90 3RF ferrous sulfate 325 mg (65 mg iron) tablet 325 mg PO BID Qty: 60 3RF clopidogrel [Plavix] 75 mg tablet 75 mg PO DAILY Qty: 90 1RF amitriptyline 25 mg Tablet 25 mg PO BEDTIME ascorbic acid (vitamin C) [Vitamin C With Allie Hips] 500 mg Tablet 500 mg PO DAILY cefuroxime axetil 500 mg tablet 500 mg PO BID Qty: 8 0RF lisinopril 5 mg tablet 5 mg PO DAILY 90 Days Qty: 90 3RF Hold Instructions: Resume on 01/24/22. please repeat bmp and will need n ephrology clearence before starting lisinopril furosemide 40 mg tablet 40 mg PO DAILY Hold Instructions: Resume on 01/31/22. hold and repeat bmp ,follow up with nephrology before staring lasix. insulin regular hum U-500 conc 500 unit/mL solution 0 - 450 unit subcut DAILY PRN (Reason: for insulin pump) (DME) blood sugar diagnostic Strip See Rx Instructions Not Applicable .MEDSUPPLY Qty: 10 Rx Instructions: As directed gabapentin 300 mg capsule 300 mg PO BID Farxiga 10 mg tablet 10 mg PO DAILY
[2022-06-22 13:31] LABS: MANUAL DIFF FLAG NO
[2022-06-22 13:32] LABS: Basophils Absolute Auto 0.1 X10*3/uL (0.0-0.2); Basophils Percent Auto 0.5 % (0-2); Eosinophils Absolute Auto 0.2 X10*3/uL (0.0-0.4); Eosinophils Percent Auto 2.1 % (0-4); Hematocrit 36.6 % (37.0-47.0); Hemoglobin 11.9 g/dl (12.0-16.0); Imm Gran Abs Auto 0.08 X10*3/uL (0.00-0.03); Imm Gran Pct Auto 0.8 % (0.0-0.4); Lymphocytes Absolute Auto 2.5 X10*3/uL (1.2-4.9); Lymphocytes Percent Auto 26.7 % (20-40); Mean Corpuscular HGB Conc 32.5 g/dl (31.0-35.0); Mean Corpuscular Hemoglobin 30.8 pg (27.0-33.0); Mean Corpuscular Volume 94.8 fL (80.0-98.0); Mean Platelet Volume 10.2 fL (9.4-12.3); Monocytes Absolute Auto 0.6 X10*3/uL (0.1-1.2); Monocytes Percent Auto 6.7 % (2-11); Neutrophils Percent Auto 63.2 % (45-73); Platelet Count 297 X10*3/uL (160-400); Red Blood Count 3.86 X10*6/uL (4.20-5.50); Red Cell Distribution Width 14.6 % (11.0-16.0); White Blood Count 9.5 X10*3/uL (4.8-10.8)
[2022-06-22 13:46] LABS: Anion Gap 15 (12-20); Blood Urea Nitrogen 51 mg/dL (9-16); Calcium 9.7 mg/dL (8.4-10.2); Carbon Dioxide 28 mmol/L (22-29); Chloride 101 mmol/L (96-108); Creatinine Clr Calc Pharmacy 33.2; Estimated Glomerular Filt Rate 26; Glucose Random 165 mg/dL (60-115); Potassium 4.9 mmol/L (3.3-5.1); Sodium 139 mmol/L (135-145)
--- NOTE | 2022-06-22 13:54 | ED_ITS ---
HPI - Recheck/Abnormal Lab/Rx General Chief Complaint: General Medical Stated Complaint: Abnormal labs Time Seen by Provider: 06/22/22 13:44 Source: patient and family (Daughter at bedside) Mode of arrival: ambulatory Limitations: language barrier (Frisian-speaking) History of Present Illness HPI narrative: 61 y/o F, hx of CAD, DMII, CKD, presents today for re-evaluation of +blood cultures from 06/17/22. She called last night to return to have repeat blood culture drawn. 1 of 2 cultures with coag neg staph and gram neg leian, likely contaminants. She reports she does not have any symptoms at this time. She den ies any fevers, dizziness, headaches, neck pain/stiffness, sore throat, nasal congestion, cough, abdominal pain, diarrhea, dysuria, hematuria, abnormal vaginal discharge, black or bloody stools, rashes or any other symptoms complaints or concerns at this time MD complaint: abnormal lab Initial visit (ago): day(s) (5) Returns today for: called because of abnormal lab/test (Positive blood cultures most likely contaminant) Symptoms since prior visit: no new symptoms Associated symptoms: none Related Data Home Medications Medication Instructions Recorded Confirmed blood sugar diagnostic #10 ea 02/24/20 05/03/22 insulin regular hum U-500 conc 500 0 - 450 unit subcut DAILY PRN for 02/24/20 06/17/22 unit/mL subcutaneous soln insulin pump dapagliflozin 10 mg tablet 10 mg PO DAILY 10/12/21 06/17/22 ([facility]) furosemide 40 mg tablet 40 mg PO DAILY 12/06/21 06/17/22 gabapentin 300 mg capsule 300 mg PO BID 01/19/22 06/17/22 amitriptyline 25 mg tablet 25 mg PO BEDTIME 06/17/22 06/17/22 ascorbic acid (vitamin C) 500 mg 500 mg PO DAILY 06/17/22 06/17/22 tablet (Vitamin C With Allie Hips) Previous Rx's Medication Instructions Recorded Shower Chair #1 ea 10/27/20 walker #1 ea 10/27/20 lisinopril 5 mg tablet 5 mg PO DAILY 90 days #90 tabs 03/18/21 amlodipine 5 mg tablet 5 mg PO DAILY 90 days #90 tabs 10/25/21 lactulose 10 gram/15 mL oral 10 g (15 mL) PO BEDTIME PRN 10/25/21 solution constipation 30 days #450 mL metoprolol tartrate 25 mg tablet 50 mg PO BID 90 days #360 tabs 12/25/21 allopurinol 300 mg tablet 300 mg PO DAILY #30 tabs 02/08/22 sennosides 8.6 mg tablet (Senna 17.2 mg PO BEDTIME PRN 02/08/22 Laxative) constipation 30 days #60 tabs clopidogrel 75 mg tablet (Plavix) 75 mg PO DAILY #90 tabs 02/17/22 aspirin 81 mg tablet,delayed 81 mg PO DAILY #30 tabs 03/25/22 release cholecalciferol (vitamin D3) 50 50 mcg PO DAILY 90 days #90 caps 03/25/22 mcg (2,000 unit) capsule spironolactone 25 mg tablet 25 mg PO DAILY #90 tabs 03/28/22 rosuvastatin 40 mg tablet 40 mg PO DAILY 90 days #90 tabs 05/03/22 ferrous sulfate 325 mg (65 mg 325 mg PO BID #60 tabs 05/20/22 iron) tablet cefuroxime axetil 500 mg tablet 500 mg PO BID #8 tabs 06/20/22 Allergies Allergy/AdvReac Type Severity Reaction Status Date / Time lactose Allergy Intermediate Vomiting Verified 06/22/22 13:08 amlodipine Allergy Mild leg edema Verified 06/22/22 13:08 liraglutide [From VICTOZA] Allergy Mild VOMITING RUBI Verified 06/22/22 13:08 Review of Systems Review of Systems: Constitutional : No Weight loss, No Fever, No Chills, No Night Sweats, No Fatigue, No Malaise ENT/Mouth : No Hearing loss, No Ear Pain, No Nasal Congestion, No Sinus Pain, No Hoarseness, No sore throat, No Rhinorrhea, No Swallowing Difficulty Eyes: No Eye Pain, No Swelling, No Redness, No Foreign Body, No Discharge, No Vision Changes Cardiovascular : No Chest Pain, No SOB, No Dyspnea on Exertion, No Orthopnea, No Edema, No Palpitations Respiratory : No Cough, No Sputum, No Wheezing, No Smoke Exposure, No Dyspnea Gastrointestinal : No Nausea, No Vomiting, No Diarrhea, No Constipation, No abdominal Pain, No Hematochezia, No Melena Genitourinary : no irregular bleeding, No Dysuria, No Urinary Frequency, No Hematuria, No Urinary Incontinence, No Urgency, No Flank Pain, No Urinary Flow Changes, No Hesitancy Musculoskeletal : No joint pain, No Myalgias, No Joint Swelling Skin : No Skin Lesions, No rash Neuro : No Weakness, No Numbness, No Paresthesias, No Loss of Consciousness, No Dizziness, No Headache Psych : No Anxiety/Panic, No Depression, No SI/HI/AH/VH, No Social Issues, Heme/Lymph: No Bruising, No Bleeding,No Lymphadenopathy Endocrine : No Polyuria, No Polydipsia, No Temperature Intolerance Yes all other systems are reviewed and are negative [facility] Past Medical History Attestation statement: The following information was validated with the patient. Source: old records reviewed, obtained from family and nursing notes reviewed Medical History Arthritis Asthma CAD (coronary artery disease) Cerebrovascular accident (CVA) due to occlusion of left middle cerebral artery CKD (chronic kidney disease) CKD (chronic kidney disease) stage 4, GFR 15-29 ml/min Diabetes Gout Hypercholesteremia Hypertension Lumbar degenerative disc disease BRYNN (obstructive sleep apnea) Right hemiparesis Sinusitis Skin lesion Stroke Surgical History H/O colonoscopy H/O right breast biopsy History of bilateral tubal ligation History of cataract surgery History of coronary angioplasty with insertion of stent History of esophagogastroduodenoscopy (EGD) History of heart surgery Family History Family History Father Stroke Mother Myocardial infarction Paternal Uncle Cancer Social History Social History Household Members: Family Housing: House Are you a primary manager intensive care to a significant other at home: No Do you presently have visiting nurse or other home services: No Alcohol intake: never Patient Tobacco Use Status: Never used Tobacco e-Cigarette/Vaping Use: Never Used Second Hand Smoke Exposure: No Advance Directives: Yes Advance Directives on File: Yes Advance Directives Date on File: 01/25/22 service: No Current occupational status: unemployed and disabled Sexual orientation: Straight/Heterosexual Gender identity: Female Cognitive needs: Yes Hearing needs: No Vision needs: No Physical Exam Vital Signs: Vital Signs: Last Vital Signs Temp 97.0 F 06/22/22 13:02 Pulse 64 06/22/22 13:02 Resp 16 06/22/22 13:02 BP 116/45 L 06/22/22 13:02 Pulse Ox 97 06/22/22 13:02 O2 Del Method 06/22/22 13:02 BMI result Body Mass Index 39.6 Vital signs reviewed. Blood pressure normal. Pulse normal. Respiration normal. Oxygen normal. Temperature normal. Appearance: Alert. Oriented X3. No acute distress. Head: Normal external exam. Normocephalic. Atraumatic. Eyes: PERRLA. EOMI. Conjunctiva and sclera normal. Eyelids normal. ENT: EAC normal. TM's Normal. Pharynx normal. Uvula midline. Moist mucous membranes. No lesions/ulcerations or masses noted on the tongue. Normal voice. No trismus noted. No drooling noted. No muffled voice noted. Neck: Normal inspection. Neck supple. FROM. No adenopathy. Thyroid Normal. No meningeal signs. CVS: Normal heart rate and rhythm. Heart sound normal. Pulses normal throughout. No murmurs/rales/gallops. Respiratory: No respiratory distress. Painless inspiration. Breath sounds normal. No wheezes/rales/rhonchi noted. Chest nontender. No accessory muscle usage noted or decreased air movement noted. Abdomen: Soft and nontender. Back: Full range of motion noted. Nontender. Skin: Skin warm and dry. Normal skin color. Normal skin turgor. No rashes/lesions/lacerations noted. Extremities: Extremities exhibit normal range of motion and nontender. Neuro: Oriented X 3. No motor deficit. No sensory deficit. Reflexes normal. Normal steady gait. No focal neuro deficits noted. CN's II-XII intact bilaterally? Vascular: + radial pulses. Normal cap refill. No cyanosis noted to upper extremity nails Course Course Course Narrative: RME: 61 y/o F, hx of CAD, DMII, CKD, presents today for re-evaluation of +blood cultures from 06/17/22. She called last night to return to have repeat blood culture drawn. 1 of 2 cultures with coag neg staph and gram neg elian, likely contaminants. VSS in triage. Blood cultures ordered. Patient is stable to return back to the waiting room until room becomes available. Reevaluation(s) Reevaluation #1: Patient presenting after positive blood cultures most likely contaminant. She reports she feels no symptoms at this time she does not even know why she is here. She is actually upset and her daughter is as well due to they called her and told her that she needed to come in last night and they called her at 22:00 and she did not appreciate this because she was sleeping and they scared her. Otherwise labs that we obtained revealed a mild baseline anemia which is similar compared to prior, chronic CKD which is improved when compared to prior random glucose 165 otherwise all other labs were normal. Patient blood cultures are pending. Therefore due to patient not having any symptoms and being afebrile and normal vitals and baseline labs will DC home with instructions return if any new or worsening symptoms and to follow up with primary care provider. Patient with daughter at bedside understand agree this plan. Medical Decision Making Lab Data MDM Lab Attestation statement: I reviewed the patient's lab results. 06/22/22 13:24 06/22/22 13:24 Labs: Lab Results 06/22/22 06/22/22 Range/Units 13:24 13:24 WBC 9.5 (4.8-10.8) X10*3/uL RBC 3.86 L (4.20-5.50) X10*6/uL Hgb 11.9 L (12.0-16.0) g/dl Hct 36.6 L (37.0-47.0) % MCV 94.8 (80.0-98.0) fL MCH 30.8 (27.0-33.0) pg MCHC 32.5 (31.0-35.0) g/dl RDW 14.6 (11.0-16.0) % Plt Count 297 D (160-400) X10*3/uL MPV 10.2 (9.4-12.3) fL Immature Gran % (Auto) 0.8 H (0.0-0.4) % Neut % (Auto) 63.2 (45-73) % Lymph % (Auto) 26.7 (20-40) % [place] % (Auto) 6.7 (2-11) % Eos % (Auto) 2.1 (0-4) % Baso % (Auto) 0.5 (0-2) % Lymph # (Auto) 2.5 (1.2-4.9) X10*3/uL [place] # (Auto) 0.6 (0.1-1.2) X10*3/uL Eos # (Auto) 0.2 (0.0-0.4) X10*3/uL Baso # (Auto) 0.1 (0.0-0.2) X10*3/uL Abs Immat Gran (auto) 0.08 H (0.00-0.03) X10*3/uL Absolute Neuts (auto) 6.0 (2.0-8.3) x10*3/uL Absolute Nucleated RBC 0.000 (0.0-0.012) X10*3/uL Nucleated RBC % (auto) 0.0 (0.0-0.2) /100WBC Sodium 139 (135-145) mmol/L Potassium 4.9 (3.3-5.1) mmol/L Chloride 101 (96-108) mmol/L Carbon Dioxide 28 (22-29) mmol/L Anion Gap 15 (12-20) BUN 51 H (9-16) mg/dL Creatinine 1.97 H (0.5-1.4) mg/dL Estim Creat Clear Calc 33.2 Estimated GFR 26 Random Glucose 165 H (60-115) mg/dL Calcium 9.7 D (8.4-10.2) mg/dL Independent Historian Clinical information obtained from an independent historian. History obtained f rom or confirmed by: Other (Daughter at bedside) External Record Review External record reviewed: Inpatient record, Office record, Outpatient record, Prior outpatient labs, Prior outpatient radiology, Primary care record and Outside ED record Discharge Plan Discharge Clinical Impression: Blood bacterial culture positive, Normal exam Patient Disposition: Home, Self-Care Instructions: Bacteremia (ED) Additional Instructions: You most likely had contaminated blood cultures. Therefore we called you back to repeat all the blood cultures and labs. Your labs are at baseline. The blood cultures will take 3-5 days to come back. If we call you back within 3-5 days please return. Prescriptions: No Action (DME) Shower Chair Misc See Rx Instructions .ROUTE .MEDSUPPLY Qty: 1 0RF Rx Instructions: As directed (DME) tobias Misc See Rx Instructions .ROUTE .MEDSUPPLY Qty: 1 0RF Rx Instructions: with seat and wheels lactulose 10 gram/15 mL solution 10 g PO BEDTIME PRN (Reason: constipation) 30 Days Qty: 450 2RF amlodipine 5 mg tablet 5 mg PO DAILY 90 Days Qty: 90 3RF Rx Instructions: Reduction in dose metoprolol tartrate 25 mg tablet 50 mg PO BID 90 Days Qty: 360 3RF sennosides [Senna Laxative] 8.6 mg tablet 17.2 mg PO BEDTIME PRN (Reason: constipation) 30 Days Qty: 60 5RF allopurinol 300 mg tablet 300 mg PO DAILY Qty: 30 6RF aspirin 81 mg tablet,delayed release (DR/EC) 81 mg PO DAILY Qty: 30 6RF cholecalciferol (vitamin D3) 50 mcg (2,000 unit) capsule 50 mcg PO DAILY 90 Days Qty: 90 2RF spironolactone 25 mg tablet 25 mg PO DAILY Qty: 90 11RF rosuvastatin 40 mg tablet 40 mg PO DAILY 90 Days Qty: 90 3RF ferrous sulfate 325 mg (65 mg iron) tablet 325 mg PO BID Qty: 60 3RF clopidogrel [Plavix] 75 mg tablet 75 mg PO DAILY Qty: 90 1RF amitriptyline 25 mg Tablet 25 mg PO BEDTIME ascorbic acid (vitamin C) [Vitamin C With Allie Hips] 500 mg Tablet 500 mg PO DAILY cefuroxime axetil 500 mg tablet 500 mg PO BID Qty: 8 0RF lisinopril 5 mg tablet 5 mg PO DAILY 90 Days Qty: 90 3RF Hold Instructions: Resume on 01/24/22. please repeat bmp and will need nephrology clearence before starting lisinopril furosemide 40 mg tablet 40 mg PO DAILY Hold Instructions: Resume on 01/31/22. hold and repeat bmp ,follow up with nephrology before staring lasix. insulin regular hum U-500 conc 500 unit/mL solution 0 - 450 unit subcut DAILY PRN (Reason: for insulin pump) (DME) blood sugar diagnostic Strip See Rx Instructions Not Applicable .MEDSUPPLY Qty: 10 Rx Instructions: As directed gabapentin 300 mg capsule 300 mg PO BID Farxiga 10 mg tablet 10 mg PO DAILY Referrals: Shara Verdugo MD [Primary Care Provider] - 2 days Print Language: Frisian
== END 2022-06-22 14:07 | disposition home or self-care (01) ==
PROVIDERS: Physician Assistant; Emergency Provider Emergency Medicine; PCP Internal Medicine
DX: R79.89 Other specified abnormal findings of blood chemistry (principal); R78.81 Bacteremia; I25.10 Atherosclerotic heart disease of native coronary artery without angina pectoris; E11.22 Type 2 diabetes mellitus with diabetic chronic kidney disease; I12.9 Hypertensive chronic kidney disease with stage 1 through stage 4 chronic kidney disease, or unspecified chronic kidney disease; N18.4 Chronic kidney disease, stage 4 (severe); Z79.899 Other long term (current) drug therapy
CPT/HCPCS: 36415; 80048; 85025; 87040; 99282; 99283

== ENCOUNTER 2022-06-28 17:33 | Inpatient (IN) | payer OTHER, SELFPAY ==
[2022-06-28] VITALS (14 sets, daily range): BP systolic 92–127; BP diastolic 24–85; PULSE 29–42; RESP 12–30; TEMP 36.6–36.8; O2SAT 91–100; BMI 45.1; BMI 40.1
--- NOTE | ~2022-06-28 | XR_ITS ---
EXAMINATION: XR chest 1V CLINICAL INFORMATION: Shortness of breath COMPARISON: None TECHNIQUE: XR chest 1V Tubes and lines: None Lungs and pleura: Elevation right hemidiaphragm unchanged, lungs otherwise remain clear. No radiographic evidence of acute infiltrates or failure. Probably calcified right hilar lymph node unchanged. Hyperdense nodule projecting over the right middle lung zone probably calcified nodule unchanged. Heart and mediastinum: The mediastinum is within normal limits.. Bones/soft tissue: Skeletal structures included are normal for patient's age. XR/XR chest 1V IMPRESSION: * No radiographic evidence of acute infiltrates or failure. * Elevation right hemidiaphragm unchanged. * Calcified right hilar lymph node and right middle lung zone nodule chronic unchanged, might be sequela of old gliomatous disease..
--- NOTE | ~2022-06-28 | XR_ITS ---
EXAMINATION: XR CHEST CLINICAL INFORMATION: Dialysis line placement. COMPARISON: Chest radiographs 06/28/2022, 06/17/2022, 06/15/2022 TECHNIQUE: Portable upright AP view of the chest was obtained. FINDINGS: Patient is rotated to the right. Right internal jugular dialysis catheter is demonstrated with tip at distal superior vena cava. No pneumothorax or pneumomediastinum. The lungs are grossly clear. There are low lung volumes. Vascularity normal. No effusion. Prior median sternotomy. XR/XR chest 1V IMPRESSION: 1. Right internal jugular dialysis catheter tip at distal superior vena cava. 2. No pneumothorax or pneumomediastinum. Lungs grossly clear.
--- NOTE | ~2022-06-28 | XR_ITS ---
EXAMINATION: XR CHEST CLINICAL INFORMATION: Placement of central venous catheter. COMPARISON: Chest radiograph earlier today at 7:48 PM. TECHNIQUE: Frontal view of the chest was obtained. FINDINGS: A right IJ CVC loops upon itself in the right neck with the tip terminating projecting over the brachiocephalic junction. Midline sternotomy wires and plates are again noted. Stable prominence of the cardiomediastinal silhouette with redemonstration of a calcified nodule measuring 2.6 cm projecting over the right hilum. No new focal airspace opacity, although evaluation of the left lung is somewhat limited due to overlying pacer pad. No pleural effusion or pneumothorax. No acute osseous abnormalities. XR/XR chest 1V IMPRESSION: 1. A right IJ CVC loops upon itself in the right neck with the tip terminating over the brachiocephalic junction. 2. No acute cardiopulmonary findings. 3. Stable prominence of the cardiomediastinal silhouette. 4. Stable calcified nodule projecting over the right hilum.
--- NOTE | 2022-06-28 17:36 | ECG_ITS ---
Test Reason : sob/ LOW HEART RATE Blood Pressure : / mmHG Vent. Rate : 036 BPM Atrial Rate : 000 BPM P-R Int : 000 ms QRS Dur : 144 ms QT Int : 528 ms P-R-T Axes : 000 -13 108 degrees QTc Int : 408 ms Atrial fibrillation with slow ventricular response Left bundle branch block Abnormal ECG When compared with ECG of 15-JUN-2022 20:04, Atrial fibrillation has replaced Sinus rhythm Vent. rate has decreased BY 35 BPM Nonspecific T wave abnormality has replaced inverted T waves in Lateral leads QT has shortened Referred By: Generic ED Physician Electronically Signed By:SHAYAN MUNSON MD
[2022-06-28 18:00] LABS: Glucose, Whole Blood 277 mg/dL (60-115)
[2022-06-28] MEDS: Magnesium Sulfate/H2O 2 GM/50 ML PIGGYBACK IV (18:10)
[2022-06-28] MEDS: 0.9 % Sodium Chloride 500 ML 999 ML IV (18:11)
[2022-06-28 18:13] LABS: MANUAL DIFF FLAG NO
[2022-06-28 18:16] LABS: Basophils Absolute Auto 0.1 X10*3/uL (0.0-0.2); Basophils Percent Auto 0.4 % (0-2); Eosinophils Absolute Auto 0.2 X10*3/uL (0.0-0.4); Eosinophils Percent Auto 1.6 % (0-4); Hematocrit 32.9 % (37.0-47.0); Hemoglobin 10.6 g/dl (12.0-16.0); Imm Gran Abs Auto 0.08 X10*3/uL (0.00-0.03); Imm Gran Pct Auto 0.6 % (0.0-0.4); Lymphocytes Absolute Auto 3.3 X10*3/uL (1.2-4.9); Lymphocytes Percent Auto 24.6 % (20-40); Mean Corpuscular HGB Conc 32.2 g/dl (31.0-35.0); Mean Corpuscular Hemoglobin 30.4 pg (27.0-33.0); Mean Corpuscular Volume 94.3 fL (80.0-98.0); Mean Platelet Volume 10.5 fL (9.4-12.3); Monocytes Absolute Auto 0.9 X10*3/uL (0.1-1.2); Monocytes Percent Auto 6.6 % (2-11); Neutrophils Percent Auto 66.2 % (45-73); Platelet Count 277 X10*3/uL (160-400); Red Blood Count 3.49 X10*6/uL (4.20-5.50); Red Cell Distribution Width 14.9 % (11.0-16.0); White Blood Count 13.6 X10*3/uL (4.8-10.8)
--- NOTE | 2022-06-28 18:19 | PC.NURSE ---
61 y/o F BIBA from home with SOB. on arrival pt placed in gown and on monitor, noted to be bradycardic to 29 with soft BPs. Md Cage made aware, pt placed on defib, [address], all labs drawn and sent, awaiting cardiology
[2022-06-28 18:22] LABS: Prothrombin Time 11.6 SEC (10.0-13.1)
--- NOTE | 2022-06-28 18:34 | ED.SOB ---
HPI - SOB/Dyspnea General Chief Complaint: Dyspnea Stated Complaint: dizziness / hypotension/ bradycardia Time Seen by Provider: 06/28/22 17:53 Source: patient and family (Both sisters) Mode of arrival: EMS History of Present Illness HPI Narrative: 61-year-old female who was recently treated for bacteremia, UTI, presents via EMS with increasing shortness of breath but denies any chest pain that started earlier today. Patient does report that yesterday she began having weakness. Her sister who takes care of her is at bedside and has also provided additional information and stating that patient has been taking all of her medications as prescribed and has not missed any doses and is continue to eat and drink well. Related Data Home Medications Medication Instructions Recorded Confirmed blood sugar diagnostic #10 ea 02/24/20 05/03/22 insulin regular hum U-500 conc 500 0 - 450 unit subcut DAILY PRN for 02/24/20 06/17/22 unit/mL subcutaneous soln insulin pump dapagliflozin 10 mg tablet 10 mg PO DAILY 10/12/21 06/17/22 (Farxiga) gabapentin 300 mg capsule 300 mg PO BID 01/19/22 06/17/22 amitriptyline 25 mg tablet 25 mg PO BEDTIME 06/17/22 06/17/22 ascorbic acid (vitamin C) 500 mg 500 mg PO DAILY 06/17/22 06/17/22 tablet (Vitamin C With Allie Hips) Previous Rx's Medication Instructions Recorded Shower Chair #1 ea 10/27/20 walker #1 ea 10/27/20 lisinopril 5 mg tablet 5 mg PO DAILY 90 days #90 tabs 03/18/21 amlodipine 5 mg tablet 5 mg PO DAILY 90 days #90 tabs 10/25/21 lactulose 10 gram/15 mL oral 10 g (15 mL) PO BEDTIME PRN 10/25/21 solution constipation 30 days #450 mL metoprolol tartrate 25 mg tablet 50 mg PO BID 90 days #360 tabs 12/25/21 allopurinol 300 mg tablet 300 mg PO DAILY #30 tabs 02/08/22 sennosides 8.6 mg tablet (Senna 17.2 mg PO BEDTIME PRN 02/08/22 Laxative) constipation 30 days #60 tabs clopidogrel 75 mg tablet (Plavix) 75 mg PO DAILY #90 tabs 02/17/22 aspirin 81 mg tablet,delayed 81 mg PO DAILY #30 tabs 03/25/22 release cholecalciferol (vitamin D3) 50 50 mcg PO DAILY 90 days #90 caps 03/25/22 mcg (2,000 unit) capsule spironolactone 25 mg tablet 25 mg PO DAILY #90 tabs 03/28/22 rosuvastatin 40 mg tablet 40 mg PO DAILY 90 days #90 tabs 05/03/22 ferrous sulfate 325 mg (65 mg 325 mg PO BID #60 tabs 05/20/22 iron) tablet cefuroxime axetil 500 mg tablet 500 mg PO BID #8 tabs 06/20/22 furosemide 40 mg tablet 40 mg PO DAILY 90 days #90 tabs 06/28/22 Allergies Allergy/AdvReac Type Severity Reaction Status Date / Time lactose Allergy Intermediate Vomiting Verified 06/22/22 13:08 amlodipine Allergy Mild leg edema Verified 06/22/22 13:08 liraglutide [From VICTOZA] Allergy Mild VOMITING RUBI Verified 06/22/22 13:08 Review of Systems Review of Systems: Pertinent positives and negatives as stated in HPI [facility] Past Medical History Source: nursing notes reviewed Medical History Arthritis Asthma CAD (coronary artery disease) Cerebrovascular accident (CVA) due to occlusion of left middle cerebral artery CKD (chronic kidney disease) CKD (chronic kidney disease) stage 4, GFR 15-29 ml/min Diabetes Gout Hypercholesteremia Hypertension Lumbar degenerative disc disease BRYNN (obstructive sleep apnea) Right hemiparesis Sinusitis Skin lesion Stroke Surgical History H/O colonoscopy H/O right breast biopsy History of bilateral tubal ligation History of cataract surgery History of coronary angioplasty with insertion of stent History of esophagogastroduodenoscopy (EGD) History of heart surgery Family History Family History Father Stroke Mother Myocardial infarction Paternal Uncle Cancer Social History Social History Household Members: Family Housing: House Are you a primary pharmacy care coordinator to a significant other at home: No Do you presently have visiting nurse or other home services: No Alcohol intake: never Patient Tobacco Use Status: Never used Tobacco e-Cigarette/Vaping Use: Never Used Second Hand Smoke Exposure: No Advance Directives: Yes Advance Directives on File: Yes Advance Directives Date on File: 01/25/22 service: No Current occupational status: unemployed and disabled Sexual orientation: Straight/Heterosexual Gender identity: Female Cognitive needs: Yes Hearing needs: No Vision needs: No Physical Exam Vital Signs: Vital Signs: Last Vital Signs Temp 98.2 F 06/28/22 18:15 Pulse 31 L 06/28/22 18:15 Resp 30 H 06/28/22 18:15 BP 100/38 L 06/28/22 18:15 Pulse Ox 91 L 06/28/22 18:15 O2 Del Method 06/28/22 18:15 BMI result Body Mass Index 45.1 VITAL SIGNS: Reviewed. GENERAL: Elevated BMI, Well developed, well nourished, in no acute distress. HEAD: Normocephalic/atraumatic EYES: PERRLA, EOMI OROPHARYNX: no oral lesions noted, posterior pharynx clear NECK: Supple, no adenopathy LUNGS: Good inspiratory effort, breath sounds decreased bilaterally, mild tachypnea. SpO2<91> CARDIOVASCULAR: Irregular, bradycardic and rhythm without noted murmurs, no JVD but bilateral lower 2+ pitting edema ABDOMEN: Soft, non-tender, non-distended with bowel sounds. MUSCULOSKELETAL: No tenderness, deformities, or effusions noted on gross inspection. EXTREMITIES: No cyanosis, clubbing or edema. SKIN: Inspection of the skin reveals no rashes NEUROLOGIC: Alert and oriented x 4. Strength and sensation to light touch were grossly intact x 4. Medications Administered Generic Name Dose Route Start Last Admin Trade Name Freq PRN Reason Stop Dose Admin Magnesium Sulfate 2 gm in 50 mls @ 25 mls/hr 06/28/22 18:06 06/28/22 18:37 Magnesium Sulfate/H2o IV 06/28/22 20:05 Infused ONCE ONE Infusion Calcium Gluconate 2 gm in 100 mls @ 50 mls/hr 06/28/22 18:31 06/28/22 18:48 Calcium Gluconate IV 06/28/22 20:30 Infused ONCE ONE Infusion Discontinued Medications Generic Name Dose Route Start Last Admin Trade Name Freq PRN Reason Stop Dose Admin Sodium Chloride 500 mls @ 999 mls/hr 06/28/22 18:15 06/28/22 18:48 Ns IV 06/28/22 18:45 Infused .Q31M DAVID Infusion Medical Decision Making Medical Decision Making [facility] Narrative: 1756: 61-year-old female with shortness of breath but no chest pain and wide bradycardia without observable P-waves after review of medication list and discharge medications there do not appear to be any concerning cross reactions noted there, however the antibiotic is noted to be metabolized primarily by the renal system and patient has underlying CKD and therefore I suspect the arrhythmia may be secondary to magnesium or potassium derangements. Patient immediately placed on oxygen, pacer pads, code cart is in the room, blood pressure remains greater than 100 systolic, 2 g of magnesium sulfate started as well as 500 cc of normal saline. POC glucose appears to be within normal limits, I also consulted Cardiology immediately. I then received a call from lab confirming that in fact patient has hyperkalemia, she received calcium gluconate, insulin, dextrose, will repeat EKG, there is an ICU bed and patient will be admitted to ICU after discussing with the tmd teacher assistant. Patient also going to be given 60 mg of Lasix. 1928: Patient given 1 g Rocephin, as she is currently being treated for UTI. Will be repeating troponin, BMP, and EKG after patient received Lasix/insulin/dextrose. Differential Diagnosis Please see the discussion above Consult Healthcare Provider 1800: I discussed the case with Dr Horton, cardiology, who agrees that likely electrolyte driven and agrees with current interventions and 1857: Line Palletizer, Dr Matias, who accepts admission. Lab Data Please see the discussion above 06/28/22 18:00 06/28/22 18:00 Labs: Lab Results 06/28/22 06/28/22 06/28/22 Range/Units 17:56 18:00 18:00 WBC 13.6 H (4.8-10.8) X10*3/uL RBC 3.49 L (4.20-5.50) X10*6/uL Hgb 10.6 L (12.0-16.0) g/dl Hct 32.9 L (37.0-47.0) % MCV 94.3 (80.0-98.0) fL MCH 30.4 (27.0-33.0) pg MCHC 32.2 (31.0-35.0) g/dl RDW 14.9 (11.0-16.0) % Plt Count 277 (160-400) X10*3/uL MPV 10.5 (9.4-12.3) fL Immature Gran % (Auto) 0.6 H (0.0-0.4) % Neut % (Auto) 66.2 (45-73) % Lymph % (Auto) 24.6 (20-40) % Thurston % (Auto) 6.6 (2-11) % Eos % (Auto) 1.6 (0-4) % Baso % (Auto) 0.4 (0-2) % Lymph # (Auto) 3.3 (1.2-4.9) X10*3/uL Thurston # (Auto) 0.9 (0.1-1.2) X10*3/uL Eos # (Auto) 0.2 (0.0-0.4) X10*3/uL Baso # (Auto) 0.1 (0.0-0.2) X10*3/uL Abs Immat Gran (auto) 0.08 H (0.00-0.03) X10*3/uL Absolute Neuts (auto) 9.0 H (2.0-8.3) x10*3/uL Absolute Nucleated RBC 0.000 (0.0-0.012) X10*3/uL Nucleated RBC % (auto) 0.0 (0.0-0.2) /100WBC PT 11.6 (10.0-13.1) SEC INR 1.0 (0.9-1.1) Sodium (135-145) mmol/L Potassium (3.3-5.1) mmol/L Chloride (96-108) mmol/L Carbon Dioxide (22-29) mmol/L Anion Gap (12-20) BUN (9-16) mg/dL Creatinine (0.5-1.4) mg/dL Estim Creat Clear Calc Estimated GFR POC Glucose 277 H (60-115) mg/dL Random Glucose (60-115) mg/dL Lactic Acid (0.5-2.0) mmol/L Calcium (8.4-10.2) mg/dL Magnesium (1.6-2.6) mg/dL Total Bilirubin (0.0-1.0) mg/dL AST (5-31) U/L ALT (0-31) U/L Alkaline Phosphatase (39-117) U/L Troponin I High Sens (<3.5-17.0) ng/L B-Natriuretic Peptide (<100) pg/mL Total Protein (6.5-8.0) g/dL Albumin (3.5-5.0) g/dL 06/28/22 06/28/22 06/28/22 Range/Units 18:00 18:00 18:00 WBC (4.8-10.8) X10*3/uL RBC (4.20-5.50) X10*6/uL Hgb (12.0-16.0) g/dl Hct (37.0-47.0) % MCV (80.0-98.0) fL MCH (27.0-33.0) pg MCHC (31.0-35.0) g/dl RDW (11.0-16.0) % Plt Count (160-400) X10*3/uL MPV (9.4-12.3) fL Immature Gran % (Auto) (0.0-0.4) % Neut % (Auto) (45-73) % Lymph % (Auto) (20-40) % Thurston % (Auto) (2-11) % Eos % (Auto) (0-4) % Baso % (Auto) (0-2) % Lymph # (Auto) (1.2-4.9) X10*3/uL Thurston # (Auto) (0.1-1.2) X10*3/uL Eos # (Auto) (0.0-0.4) X10*3/uL Baso # (Auto) (0.0-0.2) X10*3/uL Abs Immat Gran (auto) (0.00-0.03) X10*3/uL Absolute Neuts (auto) (2.0-8.3) x10*3/uL Absolute Nucleated RBC (0.0-0.012) X10*3/uL Nucleated RBC % (auto) (0.0-0.2) /100WBC PT (10.0-13.1) SEC INR (0.9-1.1) Sodium 130 L (135-145) mmol/L Potassium 6.3 H* D (3.3-5.1) mmol/L Chloride 93 L (96-108) mmol/L Carbon Dioxide 27 (22-29) mmol/L Anion Gap 16 (12-20) BUN 83 H (9-16) mg/dL Creatinine 3.60 H (0.5-1.4) mg/dL Estim Creat Clear Calc 22.6 Estimated GFR 13 POC Glucose (60-115) mg/dL Random Glucose 299 H (60-115) mg/dL Lactic Acid (0.5-2.0) mmol/L Calcium 9.2 (8.4-10.2) mg/dL Magnesium 2.8 H (1.6-2.6) mg/dL Total Bilirubin 0.3 (0.0-1.0) mg/dL AST 36 H (5-31) U/L ALT 56 H (0-31) U/L Alkaline Phosphatase 58 (39-117) U/L Troponin I High Sens 19.5 H (<3.5-17.0) ng/L B-Natriuretic Peptide 681 H (<100) pg/mL Total Protein 7.5 (6.5-8.0) g/dL Albumin 3.5 (3.5-5.0) g/dL 06/28/22 Range/Units 18:00 WBC (4.8-10.8) X10*3/uL RBC (4.20-5.50) X10*6/uL Hgb (12.0-16.0) g/dl Hct (37.0-47.0) % MCV (80.0-98.0) fL MCH (27.0-33.0) pg MCHC (31.0-35.0) g/dl RDW (11.0-16.0) % Plt Count (160-400) X10*3/uL MPV (9.4-12.3) fL Immature Gran % (Auto) (0.0-0.4) % Neut % (Auto) (45-73) % Lymph % (Auto) (20-40) % Thurston % (Auto) (2-11) % Eos % (Auto) (0-4) % Baso % (Auto) (0-2) % Lymph # (Auto) (1.2-4.9) X10*3/uL Thurston # (Auto) (0.1-1.2) X10*3/uL Eos # (Auto) (0.0-0.4) X10*3/uL Baso # (Auto) (0.0-0.2) X10*3/uL Abs Immat Gran (auto) (0.00-0.03) X10*3/uL Absolute Neuts (auto) (2.0-8.3) x10*3/uL Absolute Nucleated RBC (0.0-0.012) X10*3/uL Nucleated RBC % (auto) (0.0-0.2) /100WBC PT (10.0-13.1) SEC INR (0.9-1.1) Sodium (135-145) mmol/L Potassium (3.3-5.1) mmol/L Chloride (96-108) mmol/L Carbon Dioxide (22-29) mmol/L Anion Gap (12-20) BUN (9-16) mg/dL Creatinine (0.5-1.4) mg/dL Estim Creat Clear Calc Estimated GFR POC Glucose (60-115) mg/dL Random Glucose (60-115) mg/dL Lactic Acid 1.0 (0.5-2.0) mmol/L Calcium (8.4-10.2) mg/dL Magnesium (1.6-2.6) mg/dL Total Bilirubin (0.0-1.0) mg/dL AST (5-31) U/L ALT (0-31) U/L Alkaline Phosphatase (39-117) U/L Troponin I High Sens (<3.5-17.0) ng/L B-Natriuretic Peptide (<100) pg/mL Total Protein (6.5-8.0) g/dL Albumin (3.5-5.0) g/dL Independent Interpretation I performed an independent interpretation of an: EKG Interpretation: 1823: Wide bradycardia, no appreciable P waves, HR-38, QTC within normal limits External Record Review External record reviewed: Inpatient record, Outpatient record and Prior outpatient labs Chronic Conditions Patient?s care impacted by: Diabetes, Hypertension and Other CKD Critical Care Time Critical Care Time Critical Care Time: Yes Total Critical Care Time: 60 Attestation: I personally attest to this time spent taking care of the patient. Discharge Plan Discharge Clinical Impression: CHF exacerbation, Hyperkalemia, Arrhythmia, atrial, Acute on chronic renal failure Patient Disposition: Admitted As Inpatient Prescriptions: No Action (DME) Shower Chair Misc See Rx Instructions .ROUTE .MEDSUPPLY Qty: 1 0RF Rx Instructions: As directed (DME) walker Misc See Rx Instructions .ROUTE .MEDSUPPLY Qty: 1 0RF Rx Instructions: with seat and wheels lactulose 10 gram/15 mL solution 10 g PO BEDTIME PRN (Reason: constipation) 30 Days Qty: 450 2RF amlodipine 5 mg tablet 5 mg PO DAILY 90 Days Qty: 90 3RF Rx Instructions: Reduction in dose metoprolol tartrate 25 mg tablet 50 mg PO BID 90 Days Qty: 360 3RF sennosides [Senna Laxative] 8.6 mg tablet 17.2 mg PO BEDTIME PRN (Reason: constipation) 30 Days Qty: 60 5RF allopurinol 300 mg tablet 300 mg PO DAILY Qty: 30 6RF aspirin 81 mg tablet,delayed release (DR/EC) 81 mg PO DAILY Qty: 30 6RF cholecalciferol (vitamin D3) 50 mcg (2,000 unit) capsule 50 mcg PO DAILY 90 Days Qty: 90 2RF spironolactone 25 mg tablet 25 mg PO DAILY Qty: 90 11RF rosuvastatin 40 mg tablet 40 mg PO DAILY 90 Days Qty: 90 3RF furosemide 40 mg tablet 40 mg PO DAILY 90 Days Qty: 90 2RF Hold Instructions: Resume on 01/31/22. hold and repeat bmp ,follow up with nephrology before staring lasix. ferrous sulfate 325 mg (65 mg iron) tablet 325 mg PO BID Qty: 60 3RF clopidogrel [Plavix] 75 mg tablet 75 mg PO DAILY Qty: 90 1RF amitriptyline 25 mg Tablet 25 mg PO BEDTIME ascorbic acid (vitamin C) [Vitamin C With Allie Hips] 500 mg Tablet 500 mg PO DAILY cefuroxime axetil 500 mg tablet 500 mg PO BID Qty: 8 0RF lisinopril 5 mg tablet 5 mg PO DAILY 90 Days Qty: 90 3RF Hold Instructions: Resume on 01/24/22. please repeat bmp and will need nephrology clearence before starting lisinopril insulin regular hum U-500 conc 500 unit/mL solution 0 - 450 unit subcut DAILY PRN (Reason: for insulin pump) (DME) blood sugar diagnostic Strip See Rx Instructions Not Applicable .MEDSUPPLY Qty: 10 Rx Instructions: As directed gabapentin 300 mg capsule 300 mg PO BID Farxiga 10 mg tablet 10 mg PO DAILY
[2022-06-28] MEDS: Calcium Gluconate/NaCl,Iso-Osm 2 GM/100 ML PLAST..BAG IV (18:35)
[2022-06-28 18:37] LABS: Alanine Aminotransferase 56 U/L (0-31); Albumin Level 3.5 g/dL (3.5-5.0); Alkaline Phosphatase 58 U/L (39-117); Anion Gap 16 (12-20); Aspartate Amino Transferase 36 U/L (5-31); Bilirubin Total 0.3 mg/dL (0.0-1.0); Blood Urea Nitrogen 83 mg/dL (9-16); Calcium 9.2 mg/dL (8.4-10.2); Carbon Dioxide 27 mmol/L (22-29); Chloride 93 mmol/L (96-108); Creatinine Clr Calc Pharmacy 22.6; Estimated Glomerular Filt Rate 13; Glucose Random 299 mg/dL (60-115); Magnesium 2.8 mg/dL (1.6-2.6); Potassium 6.3 mmol/L (3.3-5.1); Sodium 130 mmol/L (135-145); Total Protein 7.5 g/dL (6.5-8.0)
[2022-06-28 18:38] LABS: B Type Natriuretic Peptide 681 pg/mL (<100)
[2022-06-28 18:41] LABS: Troponin-I High Sensitivity 19.5 ng/L (<3.5-17.0)
--- NOTE | 2022-06-28 19:02 | ECG_ITS ---
Test Reason : LOW HEART RATE Blood Pressure : / mmHG Vent. Rate : 038 BPM Atrial Rate : 000 BPM P-R Int : 000 ms QRS Dur : 150 ms QT Int : 542 ms P-R-T Axes : 000 -05 132 degrees QTc Int : 430 ms Atrial fibrillation with slow ventricular response Left bundle branch block Lateral infarct , age undetermined Abnormal ECG When compared with ECG of 28-JUN-2022 17:54, Lateral infarct is now Present Referred By: Sindy Cage Electronically Signed By:SHAYAN MUNSON MD
[2022-06-28] MEDS: Dextrose 50 % 25 GM/50 ML SYRINGE IVPUSH (19:29)
[2022-06-28] MEDS: Insulin Regular, Human 100 UNIT/ML 3 ML VIAL 10 UNIT IVPUSH (19:31)
[2022-06-28] MEDS: Furosemide 100 MG/10 ML VIAL 60 MG IVPUSH (19:37)
[2022-06-28] MEDS: Albuterol Sulfate (0.083%) 2.5 MG/3 ML VIAL.NEB 10 MG INHALE ×2 (19:48→22:06)
--- NOTE | 2022-06-28 20:03 | PHA.MEDREC ---
Pharmacy Consult ? Medication Reconciliation Pharmacy has completed the medication reconciliation.
[2022-06-28 20:10] LABS: COVID-19 Test Negative (Negative); IDNOW Serial# 16C4AD1C
[2022-06-28] MEDS: cefTRIAXone sodium 1 GM in 0.9 % Sodium Chloride 50 ML IV (20:11)
[2022-06-28] MEDS: Sodium Polystyrene Sulfon/Sorb 15 GM/60 ML ORAL.SUSP 30 GM PO (20:20)
[2022-06-28 20:35] LABS: Free T4 (Free Thyroxine) 0.84 ng/dL (0.71-1.85)
[2022-06-28 20:56] LABS: Glucose, Whole Blood 297 mg/dL (60-115)
[2022-06-28 20:59] LABS: Thyroid Stimulating Hormone 2.65 uIU/mL (0.32-4.0)
[2022-06-28 21:09] LABS: Anion Gap 18 (12-20); Blood Urea Nitrogen 83 mg/dL (9-16); Calcium 9.6 mg/dL (8.4-10.2); Carbon Dioxide 22 mmol/L (22-29); Chloride 96 mmol/L (96-108); Creatinine Clr Calc Pharmacy 23.5; Estimated Glomerular Filt Rate 13; Glucose Random 314 mg/dL (60-115); Potassium 6.7 mmol/L (3.3-5.1); Sodium 129 mmol/L (135-145)
[2022-06-28 21:27] LABS: Glucose, Whole Blood 302 mg/dL (60-115)
--- NOTE | 2022-06-28 22:06 | P.HPCC_ITS ---
History of Present Illness Date of Service: 06/28/22 Attending physician on admission: Glne Matias Chief Complaint: Symptomatic Bradycardia, SARAH, Hyperkalemia HPI: ?61-year-old female with underlying history of COVID infection about 1 month ago, chronic kidney disease stage 4, morbid obesity with BMI of 40, diabetes mellitus type 2, diabetic foot ulcer, peripheral vascular disease, CVA due to MCA occlusion in 2008 with ?other 2 mini strokes?, obstructive sleep apnea on BiPAP coronary disease status post triple bypass, tubular adenoma of the colon, UTI and bacteremia, anemia, hypercholesteremia, congestive heart failure among others presents to us after being seen in the emergency room where she was transferred via EMS with complaints of increased shortness of breath. ?Patient stated that she has been feeling weak and short of breath for last 2 days, initially she noted when she was going to bathroom and got very winded, this got worse over time to the point that she had to ask 1 of her children to help her go to the bathroom because she could not do it on her own, at that point decided the patient looked sick and decided to bring her to the emergency room.? ? In the ER her labs revealed a white count 13.6 but no fever, H&H of 10.6 and 32.9 respectively, platelets 277, sodium 130, potassium 6.3, BUN 83, creatinine 3.6 with repeat potassium of 6.72 hours later.? Phosphorus 5.0.? Troponin 19.5 and 255.4, BNP 681.? TSH 2.65, free T4 0.84. ?Patient received calcium gluconate, insulin, an amp of D50, IV Lasix.? While in the ER, the patient maintain her blood pressure just above 100, did not complain of dizziness, chest pain or further shortness of breath although she was at rest. ? Currently patient denies any headache, double or blurry vision, no lig htheadedness or dizziness, there is no syncopal episodes, no chest pain or arm, jaw pain.? Her shortness of breath is only with exertion and she denies any shows swelling of the legs, other reviews since scribed the low.? At this point the patient will be taken to the ICU, pacer pads will be placed. ? Review of systems: As above, otherwise the patient denies any prior history cold intolerance, migraine headaches, head trauma, no eyes, ears or nose problems, no problems swallowing or with phonation, no thyroid disease, cough, sputum production, pneumonia, bronchitis, COPD or emphysema, abdominal pain, nausea, vomiting, diarrhea, melena, hematochezia, hematemesis, hematuria, kidney stones, liver problems, immunocompromise state of any kind, no history of DVT or PE, f ractures or extremity, no recent traveling, surgeries all other review of systems were reviewed and they were all negative. ? Past Medical History:? As above ? Past Surgical History: Tubal ligation Triple bypass surgery ? Family history:? Noncontributory ? Social History: ?Patient lives at home with her children, she has no history of alcohol, tobacco or drug use ever. ?Reports to be very compliant with her home medications. ? CODE STATUS: FULL CODE ? Allergies: NKDA ? Home Medications: See Med Rec ? PHYSICAL EXAM: VS: ?101/42, 35, 20, 94% 2 L nasal cannula General:? Morbidly obese, Alert oriented x3 no acute distress.? Speaking full sentences.? Speech is well articulated, thought process is coherent.? Following all commands. Skin:? Intact, no lesions, edema, erythema, clubbing or cyanosis.? No ulcers. HEENT:? Head is normocephalic, atraumatic, pupils equal round reactive to light accommodation bilaterally.? Extraocular movements appear intact.? Buccal mucosa is dry.? Neck is supple without lymphadenopathy. Cardiac:? Bradycardic, 36 beats per minute, no murmurs, rubs, gallops appears irregular. Pulmonary:? Clear to auscultation, no wheezes, rales or rhonchi. Abdomen:? Protuberant, positive bowel sounds in all 4 quadrants.? Soft, nontender, no rebound or guarding.? Musculoskeletal:? Moving all 4 extremities upon request a major joints, there is no crepitus or tenderness.? The strength is 5/5 bilaterally and throughout all 4 extremities.? There is no leg edema , no calf tenderness , no leg asymmetry.? Gait not assessed at this point. Neurologic:? As above, cranial nerves 2-12 are grossly intact.? No focal deficits noted. Vascular:? 2+ pulses upper and lower extremities distally. ? SIGNIFICANT LABORATORY DATA:? As above ? REVIEW OF IMAGES: ?No acute infiltrate or failure.? Elevation of the right hemidiaphragm is unchanged.? Calcified right hilar lymph node and right midline zone nodule chronic, unchanged, may be sequela of all gliomatous disease. ? EKG REVIEW: ?Atrial fibrillation with slow response rate of 36 beats per minute, evidence of blood left bundle branch block which appears to be old. ?No ST elevation. ? ASSESSMENT : 1. Symptomatic bradycardia (underlying slow A fib) with hemodynamic instability likely due to BB retention in the setting of SARAH but r/o SSS, r/o TSH, Lyme, although the high K alone can be a cause, will see if HR improves after correcting electrolytes 2. Acute hyperkalemia in the setting of SARAH ( on K sparing diuretic and CHADD inh) 3. Acute kidney injury on CKD 4. Hypo-osmolar hypovolemic hyponatremia 5. Elevated BNP likely due to stress reaction of her myocardium, I do not think the patient has a CHF exacerbation. 6. Mild transaminitis of unknown etiology rule out fatty liver although in the setting of bradycardia which should be aware of Lyme disease and ehrlichiosis 7. History of coronary artery disease pos CABG x 3, currently asymptomatic 8. Uncontrolled diabetes type 2 with insulin resistance 9. Reactive leukocytosis without evidence of infection 10. Morbid obesity and obstructive sleep apnea ? PLAN OF CARE: Admit to ICU, monitor vital signs, I's and O's, Alberto catheter as the patient appears to be retaining over 100 cc as per bladder scan.? Does for she is ma intaining her systolic blood pressure over 100 but her heart rate remains in the mid 30s to low 40s. ?Will order albuterol 10 mg lung, insulin, Kayexalate and will recheck laboratories later on to ensure her potassium is coming down.? Patient does not want to take lactulose as this causes vomiting. It is likely she is retaining multiple byproducts of spironolactone, Zestril which can be causing the renal failure and hyperkalemia and metoprolol contributing or worsening the bradycardia. Clinically speaking the patient does not appear to be fluid overloaded showing CHF, if anything I believe she is dehydrated will start on low-dose normal saline, will check TSH, will also give her glucagon on this because he could be beta-cami retention in the setting of acute kidney injury; if anything I believe the patient is a hydrated and over diuresed. If heart rate does not get better despite potassium correction and she becomes hemodynamically unstable, will place her on dopamine, for now will place pacer pads and if necessary will pacer, cardiology consult, Lyme antibodies and was started blood. Will order insulin sliding scale and will keep her NPO just in case she needs a procedure in the morning. ?Will consult Nephrology, she likely will need a central line as there is no IV access and they are having hard time with blood drawing. Will order BiPAP at night as she normally uses this at home. ? GI PROPHYLAXIS: ?No need for now DVT PROPHYLAXIS:? Pneumatic stockings while in bed, no heparin as I suspect the patient may have a pacemaker implantation tomorrow if her bradycardia does not resolve. ? 1215am 06/29/[address] Ibrahim the elevator conductor on-call informed him the fact that despite of everything we have done including K correction, the patient's heart rate remains in the mid 30?s to low 40?s, however she remains hemodynamically stable with blood pressure 110/32 at rest.? In anticipation that she will need a pacemaker I called him and he agrees, the patient will be kept NPO, no Heparin for DVT P. ?has been administered and likely she will need a pacemaker in the morning. 0300 am patient had 3 consecutive blood pressures below 95 systolic with a low was being 80/25; heart rate 38 patient was woken up, not symptoms reported. CPAP was removed as it may be affecting the preload and contributing to the low blood pressure. However despite of doing so the blood pressure did not come up. At this point a single dose of atropine 0.5 mg IV x1 was given bring in the heart rate up to 45 beats per minute and her blood pressure to 113/38. Will monitor her closely if necessary will start dopamine. Pacer pads are in place. 604 report about a high potassium of 7, creatinine of 3.69 was called at this time. I redraw was done to ensure that this is not a mistake and indeed this was confirmed. I have ordered another 10 mg of albuterol inhaled, 1 amp of D50, 10 units of insulin IV, Lasix, calcium, a repeat dose of Kayexalate orally as well as a lactulose enema. I will contact Nephrology for this patient may need dialysis if her potassium continues to rise. Repeat labs at 09:00 o'clock [address] Rees, who is aware of all the above and agrees with ongoing low-dose saline, he agrees with repeat laboratories and if her potassium continues to rise, he will have very little trash all on hemodialysis for which he will need a temporary dialysis catheter placed. Patient remains asymptomatic, her heart rate is currently between 45 and 48 beats per minute, blood pressure is 117/29 with a map of 58, respirations 16, O2 sat 98% on 2 L nasal cannula. ? Critical care time used for critical evaluation of this patient, diagnosis, treatment and coordination of care, review her records and documentation TOTAL CRITICAL CARE TIME 150 MIN . discussion and coordination with consultants, completely separate from any procedures performed. Patient's care was discussed in detail with Dr. Matias.? He is aware of all the above as well as the plan of care for this patient. [facility] Past Medical History Medical History Arthritis Asthma CAD (coronary artery disease) Cerebrovascular accident (CVA) due to occlusion of left middle cerebral artery CKD (chronic kidney disease) CKD (chronic kidney disease) stage 4, GFR 15-29 ml/min Diabetes Gout Hypercholesteremia Hypertension Lumbar degenerative disc disease BRYNN (obstructive sleep apnea) Right hemiparesis Sinusitis Skin lesion Stroke Family History Family History Father Stroke Mother Myocardial infarction Paternal Uncle Cancer Surgical History Surgical History H/O colonoscopy H/O right breast biopsy History of bilateral tubal ligation History of cataract surgery History of coronary angioplasty with insertion of stent History of esophagogastroduodenoscopy (EGD) History of heart surgery Social History Social History Household Members: Family Housing: House Are you a primary respiratory care program director to a significant other at home: No Alcohol intake: never Patient Tobacco Use Status: Never used Tobacco e-Cigarette/Vaping Use: Never Used Second Hand Smoke Exposure: No Advance Directives Date on File: 01/25/22 service: No Current occupational status: unemployed and disabled Sexual orientation: Straight/Heterosexual Gender identity: Female Cognitive needs: Yes Hearing needs: No Vision needs: No Meds Allergies Allergy/AdvReac Type Severity Reaction Status Date / Time lactose Allergy Intermediate Vomiting Verified 06/22/22 13:08 amlodipine Allergy Mild leg edema Verified 06/22/22 13:08 liraglutide [From VICTOZA] Allergy Mild VOMITING RUBI Verified 06/22/22 13:08 Home Medications Medication Instructions Recorded Confirmed Last Taken Type blood sugar diagnostic #10 ea 02/24/20 05/03/22 Unknown History insulin regular hum U-500 conc 500 0 - 450 unit subcut DAILY PRN for 02/24/20 06/28/22 01/21/22 History unit/mL subcutaneous soln insulin pump dapagliflozin 10 mg tablet 10 mg PO DAILY 10/12/21 06/28/22 06/28/22 History (Farxiga) gabapentin 300 mg capsule 300 mg PO BID 01/19/22 06/28/22 06/28/22 History amitriptyline 25 mg tablet 25 mg PO BEDTIME 06/17/22 06/28/22 06/27/22 History ascorbic acid (vitamin C) 500 mg 500 mg PO DAILY 06/17/22 06/28/22 06/28/22 History tablet (Vitamin C With Allie Hips) Physical Exam Vital Signs: Vital Signs: Last Vital Signs Temp 97.9 F 06/28/22 21:51 Pulse 40 L 06/28/22 21:51 Resp 16 06/28/22 21:51 BP 108/28 L 06/28/22 21:51 Pulse Ox 94 06/28/22 21:51 O2 Del Method 06/28/22 21:51 O2 Flow Rate 2 06/28/22 21:51 Oxygen Flow Rate 2 06/28/22 21:11 BMI result Body Mass Index 40.1 Results Labs 06/28/22 18:00 06/28/22 20:24 Labs: Laboratory Results - last 24 hr 06/28/22 06/28/22 06/28/22 17:56 18:00 18:00 MCV 94.3 MCH 30.4 MCHC 32.2 RDW 14.9 Plt Count 277 MPV 10.5 Immature Gran % (Auto) 0.6 H Neut % (Auto) 66.2 Lymph % (Auto) 24.6 [place] % (Auto) 6.6 Eos % (Auto) 1.6 Baso % (Auto) 0.4 Lymph # (Auto) 3.3 [place] # (Auto) 0.9 Eos # (Auto) 0.2 Baso # (Auto) 0.1 Abs Immat Gran (auto) 0.08 H Absolute Neuts (auto) 9.0 H Absolute Nucleated RBC 0.000 Nucleated RBC % (auto) 0.0 PT 11.6 INR 1.0 Anion Gap Estim Creat Clear Calc Estimated GFR POC Glucose 277 H Random Glucose Lactic Acid Calcium Magnesium Total Bilirubin AST ALT Alkaline Phosphatase Troponin I High Sens B-Natriuretic Peptide Total Protein Albumin TSH Free T4 COVID-19 ([facility]) COVID-19 [facility] Com 06/28/22 06/28/22 06/28/22 18:00 18:00 18:00 MCV MCH MCHC RDW Plt Count MPV Immature Gran % (Auto) Neut % (Auto) Lymph % (Auto) [place] % (Auto) Eos % (Auto) Baso % (Auto) Lymph # (Auto) [place] # (Auto) Eos # (Auto) Baso # (Auto) Abs Immat Gran (auto) Absolute Neuts (auto) Absolute Nucleated RBC Nucleated RBC % (auto) PT INR Anion Gap 16 Estim Creat Clear Calc 22.6 Estimated GFR 13 POC Glucose Random Glucose 299 H Lactic Acid Calcium 9.2 Magnesium 2.8 H Total Bilirubin 0.3 AST 36 H ALT 56 H Alkaline Phosphatase 58 Troponin I High Sens 19.5 H B-Natriuretic Peptide 681 H Total Protein 7.5 Albumin 3.5 TSH 2.65 Free T4 0.84 COVID-19 ([facility]) COVID-19 [facility] 06/28/22 06/28/22 06/28/22 18:00 19:32 20:07 MCV MCH MCHC RDW Plt Count MPV Immature Gran % (Auto) Neut % (Auto) Lymph % (Auto) [place] % (Auto) Eos % (Auto) Baso % (Auto) Lymph # (Auto) [place] # (Auto) Eos # (Auto) Baso # (Auto) Abs Immat Gran (auto) Absolute Neuts (auto) Absolute Nucleated RBC Nucleated RBC % (auto) PT INR Anion Gap Estim Creat Clear Calc Estimated GFR POC Glucose 297 H Random Glucose Lactic Acid 1.0 Calcium Magnesium Total Bilirubin AST ALT Alkaline Phosphatase Troponin I High Sens B-Natriuretic Peptide Total Protein Albumin TSH Free T4 COVID-19 ([facility]) Negative COVID-19 Clin Com See Note 06/28/22 06/28/22 06/28/22 20:24 20:24 21:21 MCV MCH MCHC RDW Plt Count MPV Immature Gran % (Auto) Neut % (Auto) Lymph % (Auto) [place] % (Auto) Eos % (Auto) Baso % (Auto) Lymph # (Auto) [place] # (Auto) Eos # (Auto) Baso # (Auto) Abs Immat Gran (auto) Absolute Neuts (auto) Absolute Nucleated RBC Nucleated RBC % (auto) PT INR Anion Gap 18 Estim Creat Clear Calc 23.5 Estimated GFR 13 POC Glucose 302 H Random Glucose 314 H Lactic Acid Calcium 9.6 Magnesium Total Bilirubin AST ALT Alkaline Phosphatase Troponin I High Sens TNP B-Natriuretic Peptide Total Protein Albumin TSH Free T4 COVID-19 ([facility]) COVID-19 Clin Com Imaging Radiologist's Impressions: Impressions Chest X-Ray 06/28/22 19:59 IMPRESSION: * No radiographic evidence of acute infiltrates or failure. * Elevation right hemidiaphragm unchanged. * Calcified right hilar lymph node and right middle lung zone nodule chronic unchanged, might be sequela of old gliomatous disease.. Assessment and Plan Time Spent With Patient Time: Total time managing care of this patient today ____ minutes.
[2022-06-28 22:21] LABS: Appearance Urine Clear; Color Urine Yellow; Glucose Urine UA 500 mg/dL (Negative); Leukocyte Esterase Urine Negative (Negative); Nitrite Urine Negative (Negative); PH 5.5 (5.0-9.0); Urine Blood Negative (Negative); Urine Ketones Negative (Negative); Urine Protein Negative (Neg-Trace)
--- NOTE | 2022-06-28 22:40 | PC.NURSE ---
PT TO ICU AT 2100 A&O X3. DENIES PAIN OR DIZZINESS. BP 121/30. MONITOR SHOWS WIDE COMPLEX BRADYCARDIA, RATE 38-42. NO RESP DISTRESS, LUNGS CLEAR. LAB TECHS UNABLE TO DRAW BLOOD FROM PT, NO BLOOD RETURN. KASIE HERRERA STARTED PROCEDURE FOR INSERTION OF TLC AT THIS TIME. PT ALERT AND WAS EXPLAINED ABOUT THE PROCEDURE BY KASIE COLE. BP BORDERLINE LOW 97/51 MAP 66. K+AT 1800 WAS 6.3. RPT K+ 6.7. PT RECEIVED ALBUTEROL 10 GM INHAL TREATMENT IN THE ICU GIVEN BY RESP THERAPIST. WILL DRAW LABS FOR BMPF ONCE TLC IN. TREJO CATH INSERTED WITH 1100 ML RETURNED.
[2022-06-28] MEDS: 0.9 % Sodium Chloride 1,000 ML 50 ML IVCONT (23:00)
[2022-06-28 23:36] LABS: MANUAL DIFF FLAG NO
[2022-06-28 23:37] LABS: Basophils Absolute Auto 0.1 X10*3/uL (0.0-0.2); Basophils Percent Auto 0.3 % (0-2); Eosinophils Absolute Auto 0.1 X10*3/uL (0.0-0.4); Eosinophils Percent Auto 0.6 % (0-4); Hematocrit 32.9 % (37.0-47.0); Hemoglobin 10.6 g/dl (12.0-16.0); Imm Gran Abs Auto 0.11 X10*3/uL (0.00-0.03); Imm Gran Pct Auto 0.6 % (0.0-0.4); Lymphocytes Absolute Auto 4.1 X10*3/uL (1.2-4.9); Lymphocytes Percent Auto 23.9 % (20-40); Mean Corpuscular HGB Conc 32.2 g/dl (31.0-35.0); Mean Corpuscular Volume 93.2 fL (80.0-98.0); Mean Platelet Volume 10.7 fL (9.4-12.3); Monocytes Absolute Auto 1.3 X10*3/uL (0.1-1.2); Monocytes Percent Auto 7.3 % (2-11); Neutrophils Absolute Auto 11.5 x10*3/uL (2.0-8.3); Neutrophils Percent Auto 67.3 % (45-73); Platelet Count 269 X10*3/uL (160-400); Red Blood Count 3.53 X10*6/uL (4.20-5.50); Red Cell Distribution Width 14.8 % (11.0-16.0); White Blood Count 17.1 X10*3/uL (4.8-10.8)
--- NOTE | 2022-06-28 23:49 | W.PM.CCHP ---
Procedures Date of Service Date of Service: 06/28/22 Central Line Placement Right IJ: Central Line Comments: Consent was obtained from the patient at bedside available manner, risk and benefits were explained in detail to her. She agrees. A quick time-out was made for clarification and proper patient identification, patient was positioned, landmarks were identified, US used to locate a large compressible IJ however appears to be 4 cm deep into the skin. Her neck is thick and wide. The right neck was widely prepped and draped in a full sterile fashion. Ultrasound was used to locate again the right IJ, the vein was cannulated on the 2nd pass with an 18 gauge thin needle, dark nonpulsatile blood return was obtained. The wire was threaded without difficulty, a small incision was made at its base and dilator inserted. A triple-lumen central venous catheter was advanced into the vein up to the hub without problems, wired was removed. Ports had good blood return and flushed x3. The catheter was secured with 3 sutures at 3 sites, a Biopatch and dry sterile dressing were applied. Post procedure chest x-ray showed the line to have looped up and back down into the SVC , no pneumothorax. No bleeding or complications noted. The postprocedural x-ray findings and image was shared and discussed with Dr. Matias, despite the loop, the line is still in place and is good for use for now, particularly given the where using a for lab draw only and no medication administration at this point. Consent for Procedure: Elective - informed consent obtained Time out performed: Yes Sterile Technique Used: Yes Patient placed on monitor/pulse ox: Yes prep: mask, gown and gloves Central line prep: Chlorhexidine scrub Local anesthesia used: lidocaine 2% Amount of anesthesia used (ml): 5 Ultrasound used for placement: Yes Central line lumen inserted: triple Post procedure: sutured in place, good blood return, all ports aspirated, flushed, capped and sterile dressing applied Post procedure x-ray: tip of catheter in good position (looping uo then down but in the SVC) Patient tolerated procedure: well Complications: none
[2022-06-28 23:50] LABS: Anion Gap 16 (12-20); Blood Urea Nitrogen 82 mg/dL (9-16); Calcium 9.5 mg/dL (8.4-10.2); Carbon Dioxide 26 mmol/L (22-29); Chloride 97 mmol/L (96-108); Creatinine Clr Calc Pharmacy 22.6; Estimated Glomerular Filt Rate 14; Glucose Random 260 mg/dL (60-115); Potassium 5.5 mmol/L (3.3-5.1); Sodium 133 mmol/L (135-145)
[2022-06-28 23:57] LABS: Troponin-I High Sensitivity 25.4 ng/L (<3.5-17.0)
[2022-06-29] VITALS (53 sets, daily range): BP systolic 64–181; BP diastolic 24–105; PULSE 12–113; RESP 12–47; TEMP 36.3–37.1; O2SAT 90–100; BMI 35.2
[2022-06-29] MEDS: Albuterol Sulfate (0.083%) 2.5 MG/3 ML VIAL.NEB 10 MG INHALE ×2 (00:22→05:50)
[2022-06-29] MEDS: Insulin Regular, Human 100 UNIT/ML 3 ML VIAL IVPUSH (00:50)
--- NOTE | 2022-06-29 02:59 | PC.NURSE ---
Assumed care of pt. at 1900. At that time pt. was in extreme bradycardia ranging 28-40bpm. Pt. medicated for hyperkalemia. ED pyxis was out of regular insulin, which pharmacy brought up to [facility]. As soon as stock brought up, pt. was medication with the insulin and dextrose per JUN. Pt also received glucagon and kayexalate per JUN for potassium shift. Pt. was a difficult draw for repeat BMP, troponin, and blood cultures. 1st set of cultures previously sent to lab, 2nd set unable to draw as circulation was poor and the blood wouldn't flow. BMP and troponin were drawn by phlebotomy with the fingerstick method after failed attempts by ED configuration technician to obtain blood. Pt's family (2 daughters accompanied to ICU) remained at bedside. Pt. remained on quality assurance monitor. Pt. was assigned an ICU bed and report was given to GREG Narayanan. Pt. was more alert upon transfer than upon beginning of care. Pt. transported with transport and this RN to ICU.
[2022-06-29] MEDS: Atropine Sulfate 1 MG/ML VIAL 0.5 MG IVPUSH (03:04)
--- NOTE | 2022-06-29 04:33 | PC.NURSE ---
Addendum entered by Dom Jiménez RN 06/29/22 07:37: At 5:40, critical serum potassium received of 6.7, which was reported to provider, who ordered stat recheck of electrolytes; received subsequent critical potassium of 7.0, and provider aware. New orders for 1 amp Dextrose 50%, 10 Units IV regular insulin, Lasix 40 mg IVp, 2 GM calcium gluconate IV, PO Kayexolate, and PO Lokelma. Provider ordered stat consultation to nephro, who agreed with these interventions. Patient continued to be asymptomatic, but has had tapering urine outputs, continues to have low blood pressures, but has maintained goal systolic of over 90 mmHg. Provider aware of MAP below 65, and that is not target per provider. Patient denies dizziness, denies chest pain. Original Note: Assumed care at 23:00. Patient A&O x4, Hungarian speaking only, communicated with in Hungarian and Provider also communicating in Hungarian, patient family also at bedside, everyone declined intepretter. Patient underwent placement of TLC to right IJ at bedside immediately prior to shift beginning, and CXR did not confirm correct placement, provider aware and per provider, this IJ is only acceptable for drawing blood samples, but should not be used to administer medications. Patient continues to deny dizziness or chest pain or difficulty breathing or nausea. She continues to be in a slow rhythm on telemetry with low rate of 37, mostly 39-42 bpm, pacer pads on chest and back per provider, rhythm initially irregular and slow afib, then later regular and appering more of junctional rhythm. Patient with low blood pressure, per provider goal is to keep systolic BP of 90 mmHg and higher, which was mostly maintained with 2 exceptional systolic BPs seeming positional and then related to CPAP. Patient reports using home CPAP, and was started on CPAP of 10 here by RT per provider. Patient sat had dropped briefly to 87-90% a couple of times, and this resolved with application of CPAP and removal of 2 LPM nasal cannula, but patient's BP seemed to drop slightly, and removed CPAP per provider and administered 5 mg IVP atropine per provider with HR as low as 38 at time, and this had good effect bringing HR up to 40-46. Patient resting well, denies discomfort. Patient with morfin for output monitoring in diuresis, had 125/hour clear yellow urine output, with tapering output to 25 ccs over last hour. Continueing to Roshan aware.
[2022-06-29 05:11] LABS: VBG Base Excess -0.2 mmol/L; VBG HCO3 24 mmol/L (22-26); VBG pCO2 40 mmHg; VBG pH 7.38 (7.32-7.43); VBG pO2 41 mmHg
[2022-06-29 05:13] LABS: MANUAL DIFF FLAG NO
[2022-06-29 05:15] LABS: Venous Blood Gas Refer to POC result
[2022-06-29 05:19] LABS: Basophils Absolute Auto 0.1 X10*3/uL (0.0-0.2); Basophils Percent Auto 0.4 % (0-2); Eosinophils Absolute Auto 0.1 X10*3/uL (0.0-0.4); Eosinophils Percent Auto 0.5 % (0-4); Hematocrit 29.9 % (37.0-47.0); Hemoglobin 9.6 g/dl (12.0-16.0); Imm Gran Abs Auto 0.05 X10*3/uL (0.00-0.03); Imm Gran Pct Auto 0.4 % (0.0-0.4); Lymphocytes Absolute Auto 2.6 X10*3/uL (1.2-4.9); Mean Corpuscular HGB Conc 32.1 g/dl (31.0-35.0); Mean Corpuscular Hemoglobin 30.6 pg (27.0-33.0); Mean Corpuscular Volume 95.2 fL (80.0-98.0); Mean Platelet Volume 10.9 fL (9.4-12.3); Monocytes Percent Auto 7.7 % (2-11); Neutrophils Absolute Auto 9.4 x10*3/uL (2.0-8.3); Platelet Count 240 X10*3/uL (160-400); Red Blood Count 3.14 X10*6/uL (4.20-5.50); Red Cell Distribution Width 15.1 % (11.0-16.0); White Blood Count 13.2 X10*3/uL (4.8-10.8)
[2022-06-29 05:40] LABS: Alanine Aminotransferase 46 U/L (0-31); Albumin Level 3.2 g/dL (3.5-5.0); Alkaline Phosphatase 50 U/L (39-117); Anion Gap 17 (12-20); Aspartate Amino Transferase 24 U/L (5-31); Bilirubin Total 0.2 mg/dL (0.0-1.0); Blood Urea Nitrogen 84 mg/dL (9-16); Calcium 9.2 mg/dL (8.4-10.2); Carbon Dioxide 26 mmol/L (22-29); Chloride 97 mmol/L (96-108); Creatinine Clr Calc Pharmacy 20.6; Estimated Glomerular Filt Rate 13; Glucose Random 164 mg/dL (60-115); Potassium 6.7 mmol/L (3.3-5.1); Sodium 133 mmol/L (135-145); Total Protein 6.6 g/dL (6.5-8.0)
[2022-06-29 06:08] LABS: Anion Gap 15 (12-20); Carbon Dioxide 27 mmol/L (22-29); Chloride 98 mmol/L (96-108); Sodium 133 mmol/L (135-145)
[2022-06-29] MEDS: Sodium Zirconium Cyclosilicate 10 GM POWD.PACK PO (06:35)
[2022-06-29] MEDS: Insulin Regular, Human 100 UNIT/ML 3 ML VIAL 10 UNIT IVPUSH ×2 (06:36→13:51)
[2022-06-29] MEDS: Calcium Gluconate/NaCl,Iso-Osm 2 GM/100 ML PLAST..BAG IV ×2 (06:36→13:51)
[2022-06-29] MEDS: Furosemide 40 MG/4 ML VIAL IVPUSH (06:37)
[2022-06-29] MEDS: Sodium Polystyrene Sulfon/Sorb 15 GM/60 ML ORAL.SUSP 30 GM PO (06:44)
[2022-06-29] MEDS: DOPamine HCL/D5W 400 MG/250 ML PLAST..BAG 18.53 MG IVCONT (08:30)
[2022-06-29] MEDS: Norepinephrine Bitartrate/D5W 8 MG/250 ML PLAST..BAG 92.63 MG IV (08:45)
--- NOTE | 2022-06-29 08:59 | MHC.CM.PN ---
Addendum entered by Yvette Banda 06/29/22 09:58: SPOKE WITH DAUGHTER LISET AT BEDSIDE. SHE CONFIRMS SHE WILL TRANSPORT MOTHER HOME ON DC. Original Note: MESSAGE LEFT AT [phone] ( LISTED IN CHART) FOR DAUGHTER/HCP SELAMCY TO RETURN CALL. PER EMR REVIEW, PT IS ACTIVE WITH [facility], HAS A NURSE THAT CHECKS IN PERIODICALLY. DAUGHTER PROVIDES ASSISTANCE WITH ANY PT NEEDS. PT USES A WALKER FOR MOBILITY, USES C[facility]PAP AT [facility] AND HAS MODIFIED BR WITH SHOWER CHAIR. + HCP ON FILE. +COVID VAX X3 WITH [facility]. PCP DR. FOUZIA CAPPS AT [facility] [place]. DP: HOME WITH RESUMPTION OF SUSTAINABILITY [facility]. DAUGHTER TO TRANSPORT ON DC? WILL CONFIRM THIS ON RETURN CALL.
[2022-06-29] MEDS: ondansetron HCL 4 MG/2 ML VIAL IVPUSH (09:00)
[2022-06-29 09:27] LABS: Anion Gap 16 (12-20); Blood Urea Nitrogen 85 mg/dL (9-16); Calcium 9.5 mg/dL (8.4-10.2); Carbon Dioxide 27 mmol/L (22-29); Chloride 96 mmol/L (96-108); Creatinine Clr Calc Pharmacy 20.5; Estimated Glomerular Filt Rate 14; Glucose Random 262 mg/dL (60-115); Potassium 6.4 mmol/L (3.3-5.1); Sodium 133 mmol/L (135-145)
--- NOTE | 2022-06-29 09:30 | CA_ITS ---
Transthoracic Echocardiogram Patient (Last, First, Middle): Anna Mead L Gender: Female Date of : 1960 Age: 61 Procedure Date: 06/29/2022 Procedure Type: Transthoracic Echocardiogram Location: ICU Height: 167.64 cm Weight: 98.43 kg BSA: 2.07 m2 Heart Rate: 61 bpm BP: 152 / 43 mmHg Bobbin Fixer: [place] Referring MD: Glen Matias MD Symptoms: symptomatic bradycardia Study Quality: Fair/Contrast ECG Rhythm: Sinus Conclusions: - 1. Normal LV systolic function mild LVH with grade 2 diastolic dysfunction next 2. Limited visualization of cardiac valve with cardiac valvular Doppler within normal limits 3. Normal RV systolic pressure 4. No gross pericardial effusion Findings Procedure Information Contrast agent, definity, is being given per protocol without apparent complications. Left Ventricle Normal left ventricular size and systolic function. There is mildly increased left ventricular wall thickness. The visually estimated ejection fraction is between 60-65%. Spectral Doppler is indicative of a restrictive filling pattern. E/E prime ratio is >15, consistent with elevated filling pressures. Evidence suggests grade III (severe) diastolic dysfunction. Right Ventricle The right ventricle was not well visualized. Atria The left atrium is likely dilated. Interatrial shunt cannot be excluded. The right atrium was not well visualized. Aortic Valve The aortic valve was not well visualized. There is mild calcification of the aortic valve. There is mild aortic valve stenosis. There is no aortic valve regurgitation. Mitral Valve The mitral valve was not well visualized. There is mild anterior and posterior mitral leaflet thickening. There is no mitral valve regurgitation. There is no mitral valve stenosis. Pulmonic Valve The pulmonic valve was not well visualized. Tricuspid Valve There is mild tricuspid valve regurgitation. Normal right atrial pressure. There is no evidence of pulmonary hypertension. Great Vessels The aorta was not well visualized. The pulmonary artery was not well visualized. Venous The inferior vena cava is mildly dilated and collapses greater than 50% with inspiration. Pericardium/Pleural There is no evidence of pericardial effusion. Prior Study Comparison No significant change compared to prior study dated: 09/09/2021. Measurements 2D Linear Measurements IVSd: 1.09 0.6-0.9/0.6-1.0 cm LVIDd: 4.56 3.9-5.3/4.2-5.9 cm LVIDd Index: 2.20 2.4-3.2/2.2-3.1 cm/m2 LVIDs: 2.51 2.0-3.6 cm LVPWd: 1.25 0.7-1.1 cm LA Diam: 4.20 2.7-3.8/3.0-4.0 cm LAIDs Index: 2.03 1.5-2.3 cm/m2 LV Mass: 243.04 67-162/88-224 g LV Mass Index: 117.41 43-95/49-115 g/m2 LVOT Diam: 2.20 3.0+(-)1.3 cm 2D Systolic Function EF 4C: 55.90 >55% EF 2C: 77.80 >55% Mitral Valve MV Pk E: 1.49 MV PK A: 0.64 MV Decel Time: 226.00 E/A: 2.30 E'Lateral: 7.94 E'Medial: 5.22 E/E' Med: 28.50 E/E' Lat: 18.80 PHT: 66.00 MVA PHT: 3.33 Decel Burke: 6.62 Aortic Valve AoV Pk Zen: 1.93 AoV Mn Zen: 1.46 AoV VTI: 0.43 AoV Pk Grad: 15.00 Aov Mn Grad: 10.00 MANDEEP Cont.VTI: 2.10 LVOT LVOT Pk Zen: 1.07 LVOT Mn Zen: 0.74 LVOT VTI: 0.24 LVOT Pk Grad: 5.00 LVOT Mn Grad: 3.00 LVOT Diam: 2.20 LVOT Area: 3.80 Diastolic Function MV Pk E: 1.49 MV Pk A: 0.64 E/A: 2.30 E'Medial: 5.22 E/E' Med: 28.50 E' Laterial: 7.94 E/E' Lat: 18.80 Right Ventricle TAPSE (mm): 13.20 TVS' Zen: 10.30 Tricuspid Valve TR Pk Zen: 2.49 TR Pk Grad: 25.00 RA Press: 3.00 RVSP: 28.00 Great Vessels Aorta Sinus of Valsalva: 3.10 2.0-3.5 cm Ao Asc: 3.20 2.1-3.4 cm Pulmonary Valve PV Pk Zen: 1.34 Peak PV Grad: 7.00 Updated in Other Vendor System with Status of Final Brandon Horton MD electronically signed on 06/29/2022 1:43:30 PM with status of Final
--- NOTE | 2022-06-29 10:08 | PM.CCPN ---
Subjective Subjective Date of Service: 06/29/22 Interval History: 61-year-old lady with underlying obesity, CAD status post CABG, diastolic dysfunction, hypertension, CKD stage 4, diabetes mellitus with diabetic foot ulcer, PVD, CVA, BRYNN on BiPAP admitted on 06/28/2022 with weakness and dyspnea. On initial ER evaluation acute kidney injury with hyperkalemia and symptomatic bradycardia. Patient admitted to intensive care unit and treated for hyperkalemia. Nephrology and cardiology evaluation requested. Overnight with bradycardia, but acceptable systolic blood pressure, though MAP on low side, started on Levophed support this a.m. with improvement in MAP, urine output and potassium. Critical Care Time (minutes): 60 Physical Exam Vital Signs: Vital Signs: Last Vital Signs Temp 98.5 F 06/29/22 08:00 Pulse 62 06/29/22 09:59 Resp 12 06/29/22 09:00 BP 152/40 H 06/29/22 09:59 Pulse Ox 98 06/29/22 09:00 O2 Del Method 06/29/22 09:00 O2 Flow Rate 2 06/29/22 09:00 Oxygen Flow Rate 2 06/28/22 21:11 BMI result Body Mass Index 35.2 Const: General: no acute distress, alert and awake Nutritional Appearance: obese Eyes: Sclerae: sclerae normal EOM: EOMs intact bilaterally Neck: Neck: Yes no lymphadenopathy, Yes trachea midline and Yes supple Resp: Effort & Inspection: normal respiratory effort and no respiratory distress Auscultation: clear to auscultation bilaterally Cardio: Rate: regular rate Rhythm: regular rhythm Heart sounds: no gallops, no murmurs and no rubs GI: Palpation (GI): Soft to palpation and Other GI palpation findings present ( Nontender) Auscultation: normal bowel sounds Extrem: General: No clubbing, No cyanosis and Yes edema (1+ bilateral) Objective Data Labs 06/29/22 05:08 06/29/22 09:02 Labs: Laboratory Results - last 24 hr 06/28/22 06/28/22 06/28/22 17:56 18:00 18:00 WBC 13.6 H RBC 3.49 L Hgb 10.6 L Hct 32.9 L MCV 94.3 MCH 30.4 MCHC 32.2 RDW 14.9 Plt Count 277 MPV 10.5 Immature Gran % (Auto) 0.6 H Neut % (Auto) 66.2 Lymph % (Auto) 24.6 [place] % (Auto) 6.6 Eos % (Auto) 1.6 Baso % (Auto) 0.4 Lymph # (Auto) 3.3 [place] # (Auto) 0.9 Eos # (Auto) 0.2 Baso # (Auto) 0.1 Abs Immat Gran (auto) 0.08 H Absolute Neuts (auto) 9.0 H Absolute Nucleated RBC 0.000 Nucleated RBC % (auto) 0.0 PT 11.6 INR 1.0 VBG pH VBG pCO2 VBG pO2 VBG HCO3 VBG O2 Saturation VBG Base Excess Sodium Potassium Chloride Carbon Dioxide Anion Gap BUN Creatinine Estim Creat Clear Calc Estimated GFR POC Glucose 277 H Random Glucose Lactic Acid Calcium Phosphorus Magnesium Total Bilirubin AST ALT Alkaline Phosphatase Troponin I High Sens B-Natriuretic Peptide Total Protein Albumin TSH Free T4 Urine Color Urine Appearance Urine pH Ur Specific [place] Urine Protein Urine Glucose (UA) Urine Ketones Urine Blood Urine Nitrite Ur Leukocyte Esterase COVID-19 ([facility]) COVID-19 Clin Com 06/28/22 06/28/22 06/28/22 18:00 18:00 18:00 WBC RBC Hgb Hct MCV MCH MCHC RDW Plt Count MPV Immature Gran % (Auto) Neut % (Auto) Lymph % (Auto) [place] % (Auto) Eos % (Auto) Baso % (Auto) Lymph # (Auto) [place] # (Auto) Eos # (Auto) Baso # (Auto) Abs Immat Gran (auto) Absolute Neuts (auto) Absolute Nucleated RBC Nucleated RBC % (auto) PT INR VBG pH VBG pCO2 VBG pO2 VBG HCO3 VBG O2 Saturation VBG Base Excess Sodium 130 L Potassium 6.3 H* D Chloride 93 L Carbon Dioxide 27 Anion Gap 16 BUN 83 H Creatinine 3.60 H Estim Creat Clear Calc 22.6 Estimated GFR 13 POC Glucose Random Glucose 299 H Lactic Acid Calcium 9.2 Phosphorus Magnesium 2.8 H Total Bilirubin 0.3 AST 36 H ALT 56 H Alkaline Phosphatase 58 Troponin I High Sens 19.5 H B-Natriuretic Peptide 681 H Total Protein 7.5 Albumin 3.5 TSH 2.65 Free T4 0.84 Urine Color Urine Appearance Urine pH Ur Specific [place] Urine Protein Urine Glucose (UA) Urine Ketones Urine Blood Urine Nitrite Ur Leukocyte Esterase COVID-19 ([facility]) COVID-19 [employer] Com 06/28/22 06/28/22 06/28/22 18:00 19:32 20:07 WBC RBC Hgb Hct MCV MCH MCHC RDW Plt Count MPV Immature Gran % (Auto) Neut % (Auto) Lymph % (Auto) [place] % (Auto) Eos % (Auto) Baso % (Auto) Lymph # (Auto) [place] # (Auto) Eos # (Auto) Baso # (Auto) Abs Immat Gran (auto) Absolute Neuts (auto) Absolute Nucleated RBC Nucleated RBC % (auto) PT INR VBG pH VBG pCO2 VBG pO2 VBG HCO3 VBG O2 Saturation VBG Base Excess Sodium Potassium Chloride Carbon Dioxide Anion Gap BUN Creatinine Estim Creat Clear Calc Estimated GFR POC Glucose 297 H Random Glucose Lactic Acid 1.0 Calcium Phosphorus Magnesium Total Bilirubin AST ALT Alkaline Phosphatase Troponin I High Sens B-Natriuretic Peptide Total Protein Albumin TSH Free T4 Urine Color Urine Appearance Urine pH Ur Specific [place] Urine Protein Urine Glucose (UA) Urine Ketones Urine Blood Urine Nitrite Ur Leukocyte Esterase COVID-19 ([facility]) Negative COVID-19 [employer] See Note 06/28/22 06/28/22 06/28/22 20:24 20:24 21:21 WBC RBC Hgb Hct MCV MCH MCHC RDW Plt Count MPV Immature Gran % (Auto) Neut % (Auto) Lymph % (Auto) [place] % (Auto) Eos % (Auto) Baso % (Auto) Lymph # (Auto) [place] # (Auto) Eos # (Auto) Baso # (Auto) Abs Immat Gran (auto) Absolute Neuts (auto) Absolute Nucleated RBC Nucleated RBC % (auto) PT INR VBG pH VBG pCO2 VBG pO2 VBG HCO3 VBG O2 Saturation VBG Base Excess Sodium 129 L Potassium 6.7 H* Chloride 96 Carbon Dioxide 22 Anion Gap 18 BUN 83 H Creatinine 3.47 H Estim Creat Clear Calc 23.5 Estimated GFR 13 POC Glucose 302 H Random Glucose 314 H Lactic Acid Calcium 9.6 Phosphorus Magnesium Total Bilirubin AST ALT Alkaline Phosphatase Troponin I High Sens TNP B-Natriuretic Peptide Total Protein Albumin TSH Free T4 Urine Color Urine Appearance Urine pH Ur Specific [place] Urine Protein Urine Glucose (UA) Urine Ketones Urine Blood Urine Nitrite Ur Leukocyte Esterase COVID-19 ([facility]) COVID-19 [employer] Com 06/28/22 06/28/22 06/28/22 21:57 23:27 23:27 WBC 17.1 H RBC 3.53 L Hgb 10.6 L Hct 32.9 L MCV 93.2 MCH 30.0 MCHC 32.2 RDW 14.8 Plt Count 269 MPV 10.7 Immature Gran % (Auto) 0.6 H Neut % (Auto) 67.3 Lymph % (Auto) 23.9 [place] % (Auto) 7.3 Eos % (Auto) 0.6 Baso % (Auto) 0.3 Lymph # (Auto) 4.1 [place] # (Auto) 1.3 H Eos # (Auto) 0.1 Baso # (Auto) 0.1 Abs Immat Gran (auto) 0.11 H Absolute Neuts (auto) 11.5 H Absolute Nucleated RBC 0.000 Nucleated RBC % (auto) 0.0 PT INR VBG pH VBG pCO2 VBG pO2 VBG HCO3 VBG O2 Saturation VBG Base Excess Sodium 133 L Potassium 5.5 H Chloride 97 Carbon Dioxide 26 Anion Gap 16 BUN 82 H Creatinine 3.36 H Estim Creat Clear Calc 22.6 Estimated GFR 14 POC Glucose Random Glucose 260 H Lactic Acid Calcium 9.5 Phosphorus Magnesium Total Bilirubin AST ALT Alkaline Phosphatase Troponin I High Sens B-Natriuretic Peptide Total Protein Albumin TSH Free T4 Urine Color Yellow Urine Appearance Clear Urine pH 5.5 Ur Specific [place] 1.010 Urine Protein Negative Urine Glucose (UA) 500 H Urine Ketones Negative Urine Blood Negative Urine Nitrite Negative Ur Leukocyte Esterase Negative COVID-19 ([facility]) COVID-19 Clin Com 06/28/22 06/28/22 06/29/22 23:27 23:27 05:04 WBC RBC Hgb Hct MCV MCH MCHC RDW Plt Count MPV Immature Gran % (Auto) Neut % (Auto) Lymph % (Auto) [place] % (Auto) Eos % (Auto) Baso % (Auto) Lymph # (Auto) [place] # (Auto) Eos # (Auto) Baso # (Auto) Abs Immat Gran (auto) Absolute Neuts (auto) Absolute Nucleated RBC Nucleated RBC % (auto) PT INR VBG pH 7.38 VBG pCO2 40 VBG pO2 41 VBG HCO3 24 VBG O2 Saturation 59.0 VBG Base Excess -0.2 Sodium Potassium Chloride Carbon Dioxide Anion Gap BUN Creatinine Estim Creat Clear Calc Estimated GFR POC Glucose Random Glucose Lactic Acid Calcium Phosphorus 5.0 H Magnesium Total Bilirubin AST ALT Alkaline Phosphatase Troponin I High Sens 25.4 H B-Natriuretic Peptide Total Protein Albumin TSH Free T4 Urine Color Urine Appearance Urine pH Ur Specific [place] Urine Protein Urine Glucose (UA) Urine Ketones Urine Blood Urine Nitrite Ur Leukocyte Esterase COVID-19 ([facility]) COVID-19 [employer] Com 06/29/22 06/29/22 06/29/22 05:08 05:08 05:47 WBC 13.2 H RBC 3.14 L Hgb 9.6 L Hct 29.9 L MCV 95.2 MCH 30.6 MCHC 32.1 RDW 15.1 Plt Count 240 MPV 10.9 Immature Gran % (Auto) 0.4 Neut % (Auto) 71.0 Lymph % (Auto) 20.0 [place] % (Auto) 7.7 Eos % (Auto) 0.5 Baso % (Auto) 0.4 Lymph # (Auto) 2.6 [place] # (Auto) 1.0 Eos # (Auto) 0.1 Baso # (Auto) 0.1 Abs Immat Gran (auto) 0.05 H Absolute Neuts (auto) 9.4 H Absolute Nucleated RBC 0.000 Nucleated RBC % (auto) 0.0 PT INR VBG pH VBG pCO2 VBG pO2 VBG HCO3 VBG O2 Saturation VBG Base Excess Sodium 133 L 133 L Potassium 6.7 H* D 7.0 H* Chloride 97 98 Carbon Dioxide 26 27 Anion Gap 17 15 BUN 84 H Creatinine 3.69 H Estim Creat Clear Calc 20.6 Estimated GFR 13 POC Glucose Random Glucose 164 H Lactic Acid Calcium 9.2 Phosphorus Magnesium Total Bilirubin 0.2 AST 24 ALT 46 H Alkaline Phosphatase 50 Troponin I High Sens B-Natriuretic Peptide Total Protein 6.6 Albumin 3.2 L TSH Free T4 Urine Color Urine Appearance Urine pH Ur Specific [place] Urine Protein Urine Glucose (UA) Urine Ketones Urine Blood Urine Nitrite Ur Leukocyte Esterase COVID-19 ([facility]) COVID-19 Clin Com 06/29/22 09:02 WBC RBC Hgb Hct MCV MCH MCHC RDW Plt Count MPV Immature Gran % (Auto) Neut % (Auto) Lymph % (Auto) [place] % (Auto) Eos % (Auto) Baso % (Auto) Lymph # (Auto) [place] # (Auto) Eos # (Auto) Baso # (Auto) Abs Immat Gran (auto) Absolute Neuts (auto) Absolute Nucleated RBC Nucleated RBC % (auto) PT INR VBG pH VBG pCO2 VBG pO2 VBG HCO3 VBG O2 Saturation VBG Base Excess Sodium 133 L Potassium 6.4 H* Chloride 96 Carbon Dioxide 27 Anion Gap 16 BUN 85 H Creatinine 3.46 H Estim Creat Clear Calc 20.5 Estimated GFR 14 POC Glucose Random Glucose 262 H Lactic Acid Calcium 9.5 Phosphorus Magnesium Total Bilirubin AST ALT Alkaline Phosphatase Troponin I High Sens B-Natriuretic Peptide Total Protein Albumin TSH Free T4 Urine Color Urine Appearance Urine pH Ur Specific [place] Urine Protein Urine Glucose (UA) Urine Ketones Urine Blood Urine Nitrite Ur Leukocyte Esterase COVID-19 ([facility]) COVID-19 Clin Com Progress Note: A&P Assessment and plan (1) Symptomatic bradycardia: Status: Acute (2) CHF exacerbation: Status: Acute (3) Hyperkalemia: Status: Acute (4) Acute on chronic renal failure: Status: Acute (5) CAD (coronary artery disease): Status: Acute (6) Type 2 diabetes mellitus, with long-term current use of insulin: Status: Acute (7) PVD (peripheral vascular disease): Status: Acute (8) Morbid obesity: Status: Acute (9) Afib: Status: Acute Plan Assessment: 61-year-old lady with underlying multiple medical issues admitted with symptomatic bradycardia, acute on chronic kidney disease, and hyperkalemia. Plan: Neuro: No acute issues. Cardiac: Symptomatic bradycardia, now on pressor support. Cardiology service care appreciated. Being evaluated for permanent pacemaker. Underlying diastolic congestive heart failure and CAD. Pulmonary: No acute issues. Underlying BRYNN on BiPAP. Renal: Acute on chronic renal failure, likely secondary to acute on chronic diastolic congestive heart failure exacerbation and symptomatic bradycardia. Non oliguric. Renal indices and potassium level are improving. Nephrology service care appreciated. Continue to monitor renal indices and urine output. Endo: No acute issues. Underlying diabetes mellitus on subcutaneous insulin. GI: No acute issues. ID: No acute issues. Ceftriaxone to continue outpatient treatment for UTI. No evidence of sepsis, hypotension and end organ dysfunction are secondary to symptomatic bradycardia. Heme/Onc: No acute issues. Psych: No acute issues. Miscellaneous: No acute issues. Prophylaxis: Heparin Diet: NPO for possible procedure Critical care time spent: 60 minutes Quality Stroke Does the patient have a stroke diagnosis?: No VTE Prior VTE?: No VTE Risk Level:: Medical - moderate - high VTE Device Contraindication: N/A - Device Ordered VTE Drug Contraindication: N/A - Med Ordered
[2022-06-29] MEDS: fentaNYL citrate/PF 100 MCG/2 ML VIAL 25 MCG IVPUSH (11:14)
[2022-06-29 11:31] LABS: Magnesium 2.9 mg/dL (1.6-2.6)
[2022-06-29 11:39] LABS: Glucose, Whole Blood 347 mg/dL (60-115)
--- NOTE | 2022-06-29 12:05 | PM.CNCAR ---
History of Present Illness History of Present Illness Date of Service: 06/29/22 Requesting physician: Glen Matias Consult reason: other (Sick sinus syndrome, bradycardia, poor cardiac output) Chief complaint: Bradycardia, Hyperkalemia, SARAH Narrative: I was consulted to see Anna in cardiology consultation today because of presentation with significant bradycardia with shortness of breath and poor cardiac output syndrome. Patient is 61-year-old female well known to me with prior CAD status post coronary artery bypass grafting, heart failure preserved ejection fraction, difficult control blood pressure, chronic kidney disease with advanced renal dysfunction, diabetes present hospital after not feeling well for few days. As per the daughter who is present at bedside patient was having symptoms of feeling weakness and feeling like she is in a bubble for the last 3 days. She did not come to the emergency room right away because she did want to get hospitalized again. She continued to get worse and continue to have significant symptoms of shortness of breath. She came to hospital and was noted to have significant bradycardia with no clear P waves suggestive atrial fibrillation could also represent junctional escape rhythm with sinus arrest with left bundle-branch block which is chronic for her. She was also noted to have significant hyperkalemia which was suspected initially to be the cause as well as worsened renal function. She was with borderline blood pressure and significant elevated BNP without any overt heart failure. Hyperkalemia was then manage aggressively but remain elevated and continue to have poor cardiac output syndrome overnight. Subsequently this morning was initially given pacing but that led to drop in her blood pressure subsequently started on dopamine with again not much improvement in mid arterial pressure and subsequently was started on Levophed with improvement in her blood pressure with mean arterial pressure improving above 60 and actually going on hypertensive side and converting to sinus rhythm in the 60s. Patient says she now feels better shortness of breath is improved. She is also started on more urine. Her potassium has improved Review of Systems Constitutional: Constitutional: Denies chills, Reports fatigue, Denies fever(s) and Reports weakness Eyes: Eyes: Reports no additional eye complaints Cardiovascular: Cardiovascular: Denies chest pain, Denies syncope, Denies leg edema, Reports lightheadedness, Denies palpitations and Reports dyspnea Respiratory: Respiratory: Reports no additional respiratory complaints and Reports dyspnea Gastrointestinal: Gastrointestinal: Reports no additional gastrointestinal complaints Genitourinary: Genitourinary: Reports no additional female genitourinary complaints Musculoskeletal: Musculoskeletal: Reports no additional musculoskeletal complaints Integumentary/Breasts: Skin/Breast: Reports system reviewed and no additional complaints, except as docu Neurologic: Reports system reviewed and no additional complaints, except as documented, Denies syncope and Reports weakness Psychiatric: Psychiatric: Reports no additional psychiatric complaints Endocrine: Endocrine: Reports no additional endocrine complaints, Reports fatigue and Denies palpitations Hematologic/Lymphatic: Hematologic/Lymphatic: Reports no additional hematologic/lymphatic complaints Allergic/Immunologic: Allergic/Immunologic: Reports no additional allergic/immunologic complaints [facility] Past Medical History Medical History Arthritis Asthma CAD (coronary artery disease) Cerebrovascular accident (CVA) due to occlusion of left middle cerebral artery CKD (chronic kidney disease) CKD (chronic kidney disease) stage 4, GFR 15-29 ml/min Diabetes Gout Hypercholesteremia Hypertension Lumbar degenerative disc disease BRYNN (obstructive sleep apnea) Right hemiparesis Sinusitis Skin lesion Stroke Family History Family History Father Stroke Mother Myocardial infarction Paternal Uncle Cancer Surgical History Surgical History H/O colonoscopy H/O right breast biopsy History of bilateral tubal ligation History of cataract surgery History of coronary angioplasty with insertion of stent History of esophagogastroduodenoscopy (EGD) History of heart surgery Social History Social History Household Members: Family Housing: House Are you a primary critical care transport nurse to a significant other at home: No Alcohol intake: never Patient Tobacco Use Status: Never used Tobacco e-Cigarette/Vaping Use: Never Used Second Hand Smoke Exposure: No Use of substances other than those prescribed or required for medical reasons: No Currently Displaying Signs/Symptoms of Drug Intoxication Withdrawal: No Have you been hit, kicked, punched, or otherwise hurt by someone within the past year? If so, by whom?: No Do you feel safe in your current relationship?: Yes Is there a partner from a previous relationship who is making you feel unsafe now?: No Are you made to feel afraid or neglected: No Spiritual Healthcare Practices: PENTOCOSTAL Mandaeism Healthcare Practices: NONE Cultural Healthcare Practices: NONE Advance Directives: Yes Advance Directives on File: Yes Advance Directives Date on File: 01/25/22 Do you have thoughts of harming others: None Do you have a plan to hurt others: Clear Recently lost weight without trying: No Eating poorly because of decreased appetite: Yes Nutrition Risks: No Nutritional Risk Patient : No : No service: No Current occupational status: unemployed and disabled Sexual orientation: Straight/Heterosexual Gender identity: Female Cognitive needs: Yes Hearing needs: No Vision needs: No Meds Allergies Allergy/AdvReac Type Severity Reaction Status Date / Time lactose Allergy Intermediate Vomiting Verified 06/22/22 13:08 amlodipine Allergy Mild leg edema Verified 06/22/22 13:08 liraglutide [From VICTOZA] Allergy Mild VOMITING RUBI Verified 06/22/22 13:08 Active Medications: Current Medications Dextrose (Dextrose 50 % 25 Gm/50 Ml Syringe) 25 gm IVPUSH Q15M PRN; Protocol PRN Reason: per Hypoglycemia Standing Ord. Glucose (Glucose Gel 15 Gm Gel..Gram.) 15 gm PO Q15M PRN; Protocol PRN Reason: per Hypoglycemia Standing Ord. Heparin Sodium (Porcine) (Heparin Sodium,Porcine 5,000 Unit/Ml Vial) 5,000 unit SUBCUT Q8H DAVID Norepinephrine Bitartrate (Levophed) 8 mg in 250 mls @ 0 mls/hr IV .Q0M DAVID; Protocol Last Titration: 06/29/22 11:05 Dose: 0.24 mcg/kg/min, 44.46 mls/hr Ceftriaxone Sodium 1 gm/ (Sodium Chloride) 50 mls @ 100 mls/hr IV Q24H DAVID Insulin Human Lispro (Insulin Lispro 100 Unit/Ml 3 Ml Vial) 0 unit SUBCUT Q6H DAVID; Protocol Last Admin: 06/29/22 06:37 Dose: Not Given Ondansetron HCl (Ondansetron Hcl 4 Mg/2 Ml Vial) 4 mg IVPUSH Q4H PRN PRN Reason: Nausea Last Admin: 06/29/22 09:00 Dose: 4 mg Home Medications Medication Instructions Recorded Confirmed Last Taken Type blood sugar diagnostic #10 ea 02/24/20 05/03/22 Unknown History insulin regular hum U-500 conc 500 0 - 450 unit subcut DAILY PRN for 02/24/20 06/28/22 01/21/22 History unit/mL subcutaneous soln insulin pump dapagliflozin 10 mg tablet 10 mg PO DAILY 10/12/21 06/28/22 06/28/22 History (Farxiga) gabapentin 300 mg capsule 300 mg PO BID 01/19/22 06/28/22 06/28/22 History amitriptyline 25 mg tablet 25 mg PO BEDTIME 06/17/22 06/28/22 06/27/22 History ascorbic acid (vitamin C) 500 mg 500 mg PO DAILY 06/17/22 06/28/22 06/28/22 History tablet (Vitamin C With Allie Hips) Physical Exam Vital Signs: Vital Signs: Last Vital Signs Temp 98.5 F 06/29/22 08:00 Pulse 109 H 06/29/22 11:05 Resp 23 H 06/29/22 11:00 BP 143/34 H 06/29/22 11:05 Pulse Ox 90 L 06/29/22 11:00 O2 Del Method 06/29/22 11:00 O2 Flow Rate 2 06/29/22 11:00 Oxygen Flow Rate 2 06/28/22 21:11 BMI result Body Mass Index 35.2 Const: General: cooperative, comfortable, no acute distress, alert and awake Nutritional Appearance: obese Orientation/consciousness: patient oriented x3 HEENT: Head: Yes normocephalic and Yes atraumatic Neck: Neck: Yes trachea midline, Yes supple and Yes no JVD Resp: Effort & Inspection: normal respiratory effort Auscultation: clear to auscultation bilaterally Cardio: Jugular venous distension: no JVD Palpation: normal PMI Rate: regular rate Rhythm: regular rhythm Heart sounds: S1 normal heart sound present, S2 normal heart sound present, no click, no gallops and no murmurs Skin: General skin exam: no rashes or lesions noted Neuro: General: patient oriented x3 and no focal motor deficits Extrem: General: Yes no clubbing, cyanosis or edema Psych: Appearance: grossly normal Objective Labs and Meds 06/29/22 05:08 06/29/22 09:02 Lab results: Laboratory Results - last 24 hr 06/28/22 06/28/22 06/28/22 17:56 18:00 18:00 WBC 13.6 H RBC 3.49 L Hgb 10.6 L Hct 32.9 L MCV 94.3 MCH 30.4 MCHC 32.2 RDW 14.9 Plt Count 277 MPV 10.5 Immature Gran % (Auto) 0.6 H Neut % (Auto) 66.2 Lymph % (Auto) 24.6 [place] % (Auto) 6.6 Eos % (Auto) 1.6 Baso % (Auto) 0.4 Lymph # (Auto) 3.3 [place] # (Auto) 0.9 Eos # (Auto) 0.2 Baso # (Auto) 0.1 Abs Immat Gran (auto) 0.08 H Absolute Neuts (auto) 9.0 H Absolute Nucleated RBC 0.000 Nucleated RBC % (auto) 0.0 PT 11.6 INR 1.0 VBG pH VBG pCO2 VBG pO2 VBG HCO3 VBG O2 Saturation VBG Base Excess Sodium Potassium Chloride Carbon Dioxide Anion Gap BUN Creatinine Estim Creat Clear Calc Estimated GFR POC Glucose 277 H Random Glucose Lactic Acid Calcium Phosphorus Magnesium Total Bilirubin AST ALT Alkaline Phosphatase Troponin I High Sens B-Natriuretic Peptide Total Protein Albumin TSH Free T4 Urine Color Urine Appearance Urine pH Ur Specific [place] Urine Protein Urine Glucose (UA) Urine Ketones Urine Blood Urine Nitrite Ur Leukocyte Esterase COVID-19 ([facility]) COVID-19 Clin Com 06/28/22 06/28/22 06/28/22 18:00 18:00 18:00 WBC RBC Hgb Hct MCV MCH MCHC RDW Plt Count MPV Immature Gran % (Auto) Neut % (Auto) Lymph % (Auto) [place] % (Auto) Eos % (Auto) Baso % (Auto) Lymph # (Auto) [place] # (Auto) Eos # (Auto) Baso # (Auto) Abs Immat Gran (auto) Absolute Neuts (auto) Absolute Nucleated RBC Nucleated RBC % (auto) PT INR VBG pH VBG pCO2 VBG pO2 VBG HCO3 VBG O2 Saturation VBG Base Excess Sodium 130 L Potassium 6.3 H* D Chloride 93 L Carbon Dioxide 27 Anion Gap 16 BUN 83 H Creatinine 3.60 H Estim Creat Clear Calc 22.6 Estimated GFR 13 POC Glucose Random Glucose 299 H Lactic Acid Calcium 9.2 Phosphorus Magnesium 2.8 H Total Bilirubin 0.3 AST 36 H ALT 56 H Alkaline Phosphatase 58 Troponin I High Sens 19.5 H B-Natriuretic Peptide 681 H Total Protein 7.5 Albumin 3.5 TSH 2.65 Free T4 0.84 Urine Color Urine Appearance Urine pH Ur Specific [place] Urine Protein Urine Glucose (UA) Urine Ketones Urine Blood Urine Nitrite Ur Leukocyte Esterase COVID-19 ([facility]) COVID-19 Clin Com 06/28/22 06/28/22 06/28/22 18:00 19:32 20:07 WBC RBC Hgb Hct MCV MCH MCHC RDW Plt Count MPV Immature Gran % (Auto) Neut % (Auto) Lymph % (Auto) [place] % (Auto) Eos % (Auto) Baso % (Auto) Lymph # (Auto) [place] # (Auto) Eos # (Auto) Baso # (Auto) Abs Immat Gran (auto) Absolute Neuts (auto) Absolute Nucleated RBC Nucleated RBC % (auto) PT INR VBG pH VBG pCO2 VBG pO2 VBG HCO3 VBG O2 Saturation VBG Base Excess Sodium Potassium Chloride Carbon Dioxide Anion Gap BUN Creatinine Estim Creat Clear Calc Estimated GFR POC Glucose 297 H Random Glucose Lactic Acid 1.0 Calcium Phosphorus Magnesium Total Bilirubin AST ALT Alkaline Phosphatase Troponin I High Sens B-Natriuretic Peptide Total Protein Albumin TSH Free T4 Urine Color Urine Appearance Urine pH Ur Specific [place] Urine Protein Urine Glucose (UA) Urine Ketones Urine Blood Urine Nitrite Ur Leukocyte Esterase COVID-19 ([facility]) Negative COVID-19 [employer] Com See Note 06/28/22 06/28/22 06/28/22 20:24 20:24 21:21 WBC RBC Hgb Hct MCV MCH MCHC RDW Plt Count MPV Immature Gran % (Auto) Neut % (Auto) Lymph % (Auto) [place] % (Auto) Eos % (Auto) Baso % (Auto) Lymph # (Auto) [place] # (Auto) Eos # (Auto) Baso # (Auto) Abs Immat Gran (auto) Absolute Neuts (auto) Absolute Nucleated RBC Nucleated RBC % (auto) PT INR VBG pH VBG pCO2 VBG pO2 VBG HCO3 VBG O2 Saturation VBG Base Excess Sodium 129 L Potassium 6.7 H* Chloride 96 Carbon Dioxide 22 Anion Gap 18 BUN 83 H Creatinine 3.47 H Estim Creat Clear Calc 23.5 Estimated GFR 13 POC Glucose 302 H Random Glucose 314 H Lactic Acid Calcium 9.6 Phosphorus Magnesium Total Bilirubin AST ALT Alkaline Phosphatase Troponin I High Sens TNP B-Natriuretic Peptide Total Protein Albumin TSH Free T4 Urine Color Urine Appearance Urine pH Ur Specific [place] Urine Protein Urine Glucose (UA) Urine Ketones Urine Blood Urine Nitrite Ur Leukocyte Esterase COVID-19 ([facility]) COVID-19 Clin Com 0206/28/22 06/28/22 21:57 23:27 23:27 WBC 17.1 H RBC 3.53 L Hgb 10.6 L Hct 32.9 L MCV 93.2 MCH 30.0 MCHC 32.2 RDW 14.8 Plt Count 269 MPV 10.7 Immature Gran % (Auto) 0.6 H Neut % (Auto) 67.3 Lymph % (Auto) 23.9 [place] % (Auto) 7.3 Eos % (Auto) 0.6 Baso % (Auto) 0.3 Lymph # (Auto) 4.1 [place] # (Auto) 1.3 H Eos # (Auto) 0.1 Baso # (Auto) 0.1 Abs Immat Gran (auto) 0.11 H Absolute Neuts (auto) 11.5 H Absolute Nucleated RBC 0.000 Nucleated RBC % (auto) 0.0 PT INR VBG pH VBG pCO2 VBG pO2 VBG HCO3 VBG O2 Saturation VBG Base Excess Sodium 133 L Potassium 5.5 H Chloride 97 Carbon Dioxide 26 Anion Gap 16 BUN 82 H Creatinine 3.36 H Estim Creat Clear Calc 22.6 Estimated GFR 14 POC Glucose Random Glucose 260 H Lactic Acid Calcium 9.5 Phosphorus Magnesium Total Bilirubin AST ALT Alkaline Phosphatase Troponin I High Sens B-Natriuretic Peptide Total Protein Albumin TSH Free T4 Urine Color Yellow Urine Appearance Clear Urine pH 5.5 Ur Specific [place] 1.010 Urine Protein Negative Urine Glucose (UA) 500 H Urine Ketones Negative Urine Blood Negative Urine Nitrite Negative Ur Leukocyte Esterase Negative COVID-19 ([facility]) COVID-19 Clin [facility] 06/28/22 06/28/22 06/29/22 23:27 23:27 05:04 WBC RBC Hgb Hct MCV MCH MCHC RDW Plt Count MPV Immature Gran % (Auto) Neut % (Auto) Lymph % (Auto) [place] % (Auto) Eos % (Auto) Baso % (Auto) Lymph # (Auto) [place] # (Auto) Eos # (Auto) Baso # (Auto) Abs Immat Gran (auto) Absolute Neuts (auto) Absolute Nucleated RBC Nucleated RBC % (auto) PT INR VBG pH 7.38 VBG pCO2 40 VBG pO2 41 VBG HCO3 24 VBG O2 Saturation 59.0 VBG Base Excess -0.2 Sodium Potassium Chloride Carbon Dioxide Anion Gap BUN Creatinine Estim Creat Clear Calc Estimated GFR POC Glucose Random Glucose Lactic Acid Calcium Phosphorus 5.0 H Magnesium Total Bilirubin AST ALT Alkaline Phosphatase Troponin I High Sens 25.4 H B-Natriuretic Peptide Total Protein Albumin TSH Free T4 Urine Color Urine Appearance Urine pH Ur Specific [place] Urine Protein Urine Glucose (UA) Urine Ketones Urine Blood Urine Nitrite Ur Leukocyte Esterase COVID-19 ([facility]) COVID-19 [employer] Com 06/29/22 06/29/22 06/29/22 05:08 05:08 05:47 WBC 13.2 H RBC 3.14 L Hgb 9.6 L Hct 29.9 L MCV 95.2 MCH 30.6 MCHC 32.1 RDW 15.1 Plt Count 240 MPV 10.9 Immature Gran % (Auto) 0.4 Neut % (Auto) 71.0 Lymph % (Auto) 20.0 [place] % (Auto) 7.7 Eos % (Auto) 0.5 Baso % (Auto) 0.4 Lymph # (Auto) 2.6 [place] # (Auto) 1.0 Eos # (Auto) 0.1 Baso # (Auto) 0.1 Abs Immat Gran (auto) 0.05 H Absolute Neuts (auto) 9.4 H Absolute Nucleated RBC 0.000 Nucleated RBC % (auto) 0.0 PT INR VBG pH VBG pCO2 VBG pO2 VBG HCO3 VBG O2 Saturation VBG Base Excess Sodium 133 L 133 L Potassium 6.7 H* D 7.0 H* Chloride 97 98 Carbon Dioxide 26 27 Anion Gap 17 15 BUN 84 H Creatinine 3.69 H Estim Creat Clear Calc 20.6 Estimated GFR 13 POC Glucose Random Glucose 164 H Lactic Acid Calcium 9.2 Phosphorus Magnesium Total Bilirubin 0.2 AST 24 ALT 46 H Alkaline Phosphatase 50 Troponin I High Sens B-Natriuretic Peptide Total Protein 6.6 Albumin 3.2 L TSH Free T4 Urine Color Urine Appearance Urine pH Ur Specific [place] Urine Protein Urine Glucose (UA) Urine Ketones Urine Blood Urine Nitrite Ur Leukocyte Esterase COVID-19 ([facility]) COVID-19 [employer] Com 06/29/22 06/29/22 09:02 11:35 WBC RBC Hgb Hct MCV MCH MCHC RDW Plt Count MPV Immature Gran % (Auto) Neut % (Auto) Lymph % (Auto) [place] % (Auto) Eos % (Auto) Baso % (Auto) Lymph # (Auto) [place] # (Auto) Eos # (Auto) Baso # (Auto) Abs Immat Gran (auto) Absolute Neuts (auto) Absolute Nucleated RBC Nucleated RBC % (auto) PT INR VBG pH VBG pCO2 VBG pO2 VBG HCO3 VBG O2 Saturation VBG Base Excess Sodium 133 L Potassium 6.4 H* Chloride 96 Carbon Dioxide 27 Anion Gap 16 BUN 85 H Creatinine 3.46 H Estim Creat Clear Calc 20.5 Estimated GFR 14 POC Glucose 347 H Random Glucose 262 H Lactic Acid Calcium 9.5 Phosphorus Magnesium 2.9 H Total Bilirubin AST ALT Alkaline Phosphatase Troponin I High Sens B-Natriuretic Peptide Total Protein Albumin TSH Free T4 Urine Color Urine Appearance Urine pH Ur Specific [place] Urine Protein Urine Glucose (UA) Urine Ketones Urine Blood Urine Nitrite Ur Leukocyte Esterase COVID-19 ([facility]) COVID-19 Clin Com EKGs showing bradycardia with atrial fibrillation with slow ventricular response or possibly escape junctional rhythm with underlying sinus arrest with left bundle-branch block Imaging Radiologist's impression: Impressions Chest X-Ray 06/28/22 19:59 IMPRESSION: * No radiographic evidence of acute infiltrates or failure. * Elevation right hemidiaphragm unchanged. * Calcified right hilar lymph node and right middle lung zone nodule chronic unchanged, might be sequela of old gliomatous disease.. Chest X-Ray 06/28/22 23:21 IMPRESSION: 1. A right IJ CVC loops upon itself in the right neck with the tip terminating over the brachiocephalic junction. 2. No acute cardiopulmonary findings. 3. Stable prominence of the cardiomediastinal silhouette. 4. Stable calcified nodule projecting over the right hilum. Assessment and Plan (1) Symptomatic bradycardia: Status: Acute Symptomatic bradycardia with low output syndrome in this middle-aged woman with multiple cardiovascular issues difficult control blood pressure in the past with heart failure preserved ejection fraction. Her whole syndrome appears to be related to poor cardiac output including worsening renal function with hyperkalemia as well as hypertension elevated BNP. She does not appear to be in overt heart failure at this point time. Her hemodynamic status improved with initiation of Levophed with improvement in heart rate as well as improvement in mean arterial pressure with improved renal perfusion as noted with improved urine output and reducing potassium level. Continue to use Levophed and improve blood pressure mean arterial pressure to improve renal perfusion. Hopefully potassium will correct by itself over time. The multiple medications that can cause hyperkalemia including lisinopril and Aldactone however I think this is more acute from reduced renal perfusion. At this point time I think given that sudden presentation with what appears to be sinus arrest rather than atrial fibrillation, I think she will benefit from dual-chamber pacemaker placement to maintain adequate heart rate and cardiac output. I am not sure that she has any evidence of atrial fibrillation at this point time. We can monitor this in the long run with pacer telemetry. Would avoid anticoagulation for now. We discussed the need for cardiac pacemaker including with her and her daughter who is a healthcare proxy present at bedside. We discussed the risks, benefits, alternatives. She require dual-chamber pacemaker. I think this would most importantly help her in the future to maintain adequate cardiac output and prevent recurrent hospitalization and heart failure syndrome. I would wait for potassium to be will of 5.5 prior to performing endovascular lead placement. Plan was also discussed with intensive care unit team as well as thoracic surgery greater than 40 minutes was spent in managing her complex care and discussing care. Time Spent With Patient Time: Total time managing care of this patient today ____ minutes. Procedures Date of Service Date of Service: 06/29/22
[2022-06-29] MEDS: Heparin Sodium,Porcine 5,000 UNIT/ML VIAL 5000 UNIT SUBCUT (12:10)
[2022-06-29] MEDS: Insulin Lispro 100 UNIT/ML 3 ML VIAL SUBCUT ×2 (12:11→17:24)
--- NOTE | 2022-06-29 12:24 | ECG_ITS ---
Test Reason : Rhythm Change Blood Pressure : / mmHG Vent. Rate : 065 BPM Atrial Rate : 000 BPM P-R Int : 000 ms QRS Dur : 158 ms QT Int : 514 ms P-R-T Axes : 000 111 -02 degrees QTc Int : 534 ms Atrial fibrillation Left bundle branch block Possible Lateral infarct (cited on or before 28-JUN-2022) Abnormal ECG When compared with ECG of 28-JUN-2022 18:23, Vent. rate has increased BY 27 BPM QRS axis Shifted right Serial changes of Lateral infarct Present Referred By: Brandon Horton Electronically Signed By:BRANDON HORTON MD
--- NOTE | 2022-06-29 12:31 | ECG_ITS ---
Test Reason : repeat Blood Pressure : / mmHG Vent. Rate : 061 BPM Atrial Rate : 061 BPM P-R Int : 110 ms QRS Dur : 160 ms QT Int : 528 ms P-R-T Axes : 030 109 -53 degrees QTc Int : 531 ms Junctional rhythm Left bundle branch block Possible Lateral infarct (cited on or before 28-JUN-2022) Abnormal ECG When compared with ECG of 29-JUN-2022 12:20, Junctional rhythm has replaced Atrial fibrillation Referred By: Brandon Horton Electronically Signed By:BRANDON HORTON MD
--- NOTE | 2022-06-29 12:35 | ECG_ITS ---
Test Reason : repeat Blood Pressure : / mmHG Vent. Rate : 072 BPM Atrial Rate : 000 BPM P-R Int : 000 ms QRS Dur : 174 ms QT Int : 468 ms P-R-T Axes : 000 116 159 degrees QTc Int : 512 ms Atrial fibrillation with premature ventricular or aberrantly conducted complexes Left bundle branch block Possible Lateral infarct (cited on or before 28-JUN-2022) Abnormal ECG When compared with ECG of 29-JUN-2022 12:26, Atrial fibrillation has replaced Junctional rhythm Serial changes of Lateral infarct Present Referred By: Brandon Horton Electronically Signed By:BRANDON HORTON MD
--- NOTE | 2022-06-29 12:49 | PC.NURSE ---
Assumed care at 0700. K 7.0 - medicated per EMAR by previous RN - 0900 K 6.4 -repeat labs in for 1300 and pending. Patient SR/?junctional escape HR 40's; SBP >90 per communication order from night provider. Dr Matisa at bedside. Pacer pads in placed and code cart at bedside for bedside TQ pacing. Started at 0823 @ output of 10mA & HR 70 - MAP dropped <50 - Pacing stopped at 0829 by MD. Patient started on Dopamine per EMAR without improvement of MAP. Patient started on levophed - gtt titrated by MD in 0.5 increments up to 0.3mcg/kg/min to maintain MAP >65. Dopamine titrated off by MD. Rhythm jumping between Junctional Escape HR 50's/ST 110's w/ ST depression/ VTACH. Patient complaining of sudden 10/10 headache - Dr Matias notified - Fentanyl 25mcg ordered and administered with good effect, pain down to 0/10 with 30min reassessment. Patient complaining of intermittent chest discomfort with increased HR - Dr Matias and Sendy Horton at bedside - serial EKGs ordered and completed. Plan for BMS transfer, awaiting acceptance. Currently on Levophed at 0.14mcg/kg/min, BP 133/51 MAP 76, HR 82 sinus w/ ST depression, Spo2 94% on RA, RR 19, afebrile.
[2022-06-29 13:36] LABS: Anion Gap 22 (12-20); Blood Urea Nitrogen 81 mg/dL (9-16); Calcium 9.5 mg/dL (8.4-10.2); Carbon Dioxide 23 mmol/L (22-29); Chloride 94 mmol/L (96-108); Creatinine Clr Calc Pharmacy 19.7; Estimated Glomerular Filt Rate 13; Glucose Random 448 mg/dL (60-115); Potassium 7.9 mmol/L (3.3-5.1); Sodium 131 mmol/L (135-145)
[2022-06-29 14:00] LABS: ABG Base Excess -4.5 mmol/L; ABG HCO3 19 mmol/L (22-26); ABG pCO2 33 mmHg (32-45); ABG pH 7.37 (7.35-7.45); ABG pO2 68 mmHg (83-108)
[2022-06-29 14:23] LABS: Anion Gap 23 (12-20); Blood Urea Nitrogen 83 mg/dL (9-16); Calcium 9.6 mg/dL (8.4-10.2); Carbon Dioxide 23 mmol/L (22-29); Chloride 94 mmol/L (96-108); Creatinine Clr Calc Pharmacy 19.4; Estimated Glomerular Filt Rate 13; Glucose Random 429 mg/dL (60-115); Potassium 7.7 mmol/L (3.3-5.1); Sodium 132 mmol/L (135-145)
[2022-06-29] MEDS: Norepinephrine Bitartrate/D5W 8 MG/250 ML PLAST..BAG 29.64 MG IV (14:40)
[2022-06-29] MEDS: Midazolam HCl/PF 2 MG/2 ML VIAL IVPUSH (14:40)
--- NOTE | 2022-06-29 15:09 | W.PM.CCHP ---
Procedures Date of Service Date of Service: 06/29/22 Central Line Placement Right IJ: Central Line Comments: Right internal jugular triple lumen central venous catheter removed and instead right internal jugular triple-lumen hemodialysis catheter placed under ultrasound guidance and usual sterile conditions with no immediate complications. Line position verified on chest x-ray. Patient tolerated procedure well. Nephrology notified for urgent hemodialysis. Consent for Procedure: Elective - informed consent obtained
--- NOTE | 2022-06-29 16:43 | P.DS_ITS ---
DS: Providers Provider Date of Service: 06/29/22 Date of admission: 06/28/22 19:30 Primary care physician: Shara Grimes MD Consults: 06/29/22 00:00 Consult to Cardiology Routine Consulting Provider: Brandon Horton Reason for consultation: sx bradycardia Has provider been notified: No 06/29/22 05:59 Consult to Nephrology Stat Consulting Provider: Darrell Santa Reason for consultation: sheron hyperkalemia Has provider been notified: No DS: Transfer Hospital Acceptance Reason for Transfer: Evaluation for left heart catheterization. Name of Facility: [facility] DS: Diagnosis Discharge Diagnosis (1) Symptomatic bradycardia: Status: Acute (2) Tachy-scot syndrome: Status: Acute (3) Afib: Status: Acute (4) CHF exacerbation: Status: Acute (5) Acute on chronic renal failure: Status: Acute (6) Hyperkalemia: Status: Acute (7) RTA (renal tubular acidosis): Status: Acute (8) Type 2 diabetes mellitus, with long-term current use of insulin: Status: Acute (9) Morbid obesity: Status: Acute (10) PVD (peripheral vascular disease): Status: Acute (11) Diabetic foot ulcer: Status: Acute DS: Summary Hospital Course Hospital Course: 61-year-old lady with underlying obesity, CAD status post CABG, diastolic dysfunction, hypertension, CKD stage 4, diabetes mellitus with diabetic foot ulcer, PVD, CVA, BRYNN on BiPAP admitted on 06/28/2022 with weakness and dyspnea. On initial ER evaluation acute kidney injury with hyperkalemia and symptomatic bradycardia. Patient admitted to intensive care unit and treated conservatively for hyperkalemia with initial improvement, but then several recurrence of hype rkalemia requiring placement of hemodialysis catheter initiation on hemodialysis support. Patient also with development of tachy-scot syndrome with chest pain with episodes of tachycardia deemed secondary to ischemia by consulting range operator. Transferred to [facility] for left heart catheterization and bone pacemaker placement was requested and approved. Status at Discharge Functional status at discharge: bed bound Time Spent with Patient Discharge coordination time: Greater than 30 minutes Quality: Safe Use of Opioids Does Pt have an Active Cancer Diagnosis on the Problem List?: No Quality: Stroke Does the patient have a stroke diagnosis?: No Physical Exam Vital Signs: Vital Signs: Last Vital Signs Temp 98.7 F 06/29/22 12:00 Pulse 57 06/29/22 16:00 Resp 14 06/29/22 16:00 BP 157/44 H 06/29/22 16:00 Pulse Ox 99 06/29/22 16:00 O2 Del Method 06/29/22 16:00 O2 Flow Rate 2 06/29/22 16:00 Oxygen Flow Rate 2 06/28/22 21:11 BMI result Body Mass Index 35.2 Const: General: no acute distress, alert and awake Eyes: Sclerae: sclerae normal EOM: EOMs intact bilaterally Neck: Neck: Yes no lymphadenopathy, Yes trachea midline and Yes supple Resp: Effort & Inspection: normal respiratory effort and no respiratory distress Auscultation: crackles (Mild bilateral) Cardio: Rate: bradycardic and tachycardic Rhythm: abnormal rhythm irregularly irregular Heart sounds: no gallops, no murmurs and no rubs GI: Palpation (GI): Soft to palpation and Other GI palpation findings present ( Nontender) Auscultation: normal bowel sounds Extrem: General: No clubbing, No cyanosis and Yes edema (2+ bilateral) DS: Data Data Completed and Pending Completed studies during hospitalization [Text1]: Procedures Assistance with Respiratory Ventilation, Less than 24 Consecutive Hours, Continuous Positive Airway Pressure (06/17/22) Labs on day of discharge: Laboratory Results - last 24 hr 06/28/22 06/28/22 06/28/22 17:56 18:00 18:00 WBC 13.6 H RBC 3.49 L Hgb 10.6 L Hct 32.9 L MCV 94.3 MCH 30.4 MCHC 32.2 RDW 14.9 Plt Count 277 MPV 10.5 Immature Gran % (Auto) 0.6 H Neut % (Auto) 66.2 Lymph % (Auto) 24.6 [place] % (Auto) 6.6 Eos % (Auto) 1.6 Baso % (Auto) 0.4 Lymph # (Auto) 3.3 [place] # (Auto) 0.9 Eos # (Auto) 0.2 Baso # (Auto) 0.1 Abs Immat Gran (auto) 0.08 H Absolute Neuts (auto) 9.0 H Absolute Nucleated RBC 0.000 Nucleated RBC % (auto) 0.0 PT 11.6 INR 1.0 O2 Saturation ABG pH at Pt Temp ABG pCO2 at Pt Temp ABG pO2 at Pt Temp ABG HCO3 ABG Base Excess (Actual) VBG pH VBG pCO2 VBG pO2 VBG HCO3 VBG O2 Saturation VBG Base Excess Sodium Potassium Chloride Carbon Dioxide Anion Gap BUN Creatinine Estim Creat Clear Calc Estimated GFR POC Glucose 277 H Random Glucose Lactic Acid Calcium Phosphorus Magnesium Total Bilirubin AST ALT Alkaline Phosphatase Troponin I High Sens B-Natriuretic Peptide Total Protein Albumin TSH Free T4 Urine Color Urine Appearance Urine pH Ur Specific [place] Urine Protein Urine Glucose (UA) Urine Ketones Urine Blood Urine Nitrite Ur Leukocyte Esterase COVID-19 ([facility]) COVID-19 [facility] Com Blood Type Antibody Screen Crossmatch Crossmatch ([facility]) 06/28/22 06/28/22 06/28/22 18:00 18:00 18:00 WBC RBC Hgb Hct MCV MCH MCHC RDW Plt Count MPV Immature Gran % (Auto) Neut % (Auto) Lymph % (Auto) [place] % (Auto) Eos % (Auto) Baso % (Auto) Lymph # (Auto) [place] # (Auto) Eos # (Auto) Baso # (Auto) Abs Immat Gran (auto) Absolute Neuts (auto) Absolute Nucleated RBC Nucleated RBC % (auto) PT INR O2 Saturation ABG pH at Pt Temp ABG pCO2 at Pt Temp ABG pO2 at Pt Temp ABG HCO3 ABG Base Excess (Actual) VBG pH VBG pCO2 VBG pO2 VBG HCO3 VBG O2 Saturation VBG Base Excess Sodium 130 L Potassium 6.3 H* D Chloride 93 L Carbon Dioxide 27 Anion Gap 16 BUN 83 H Creatinine 3.60 H Estim Creat Clear Calc 22.6 Estimated GFR 13 POC Glucose Random Glucose 299 H Lactic Acid Calcium 9.2 Phosphorus Magnesium 2.8 H Total Bilirubin 0.3 AST 36 H ALT 56 H Alkaline Phosphatase 58 Troponin I High Sens 19.5 H B-Natriuretic Peptide 681 H Total Protein 7.5 Albumin 3.5 TSH 2.65 Free T4 0.84 Urine Color Urine Appearance Urine pH Ur Specific [place] Urine Protein Urine Glucose (UA) Urine Ketones Urine Blood Urine Nitrite Ur Leukocyte Esterase COVID-19 ([facility]) COVID-19 [facility] Blood Type Antibody Screen Crossmatch Crossmatch ([facility]) 06/28/22 06/28/22 06/28/22 18:00 19:32 20:07 WBC RBC Hgb Hct MCV MCH MCHC RDW Plt Count MPV Immature Gran % (Auto) Neut % (Auto) Lymph % (Auto) [place] % (Auto) Eos % (Auto) Baso % (Auto) Lymph # (Auto) [place] # (Auto) Eos # (Auto) Baso # (Auto) Abs Immat Gran (auto) Absolute Neuts (auto) Absolute Nucleated RBC Nucleated RBC % (auto) PT INR O2 Saturation ABG pH at Pt Temp ABG pCO2 at Pt Temp ABG pO2 at Pt Temp ABG HCO3 ABG Base Excess (Actual) VBG pH VBG pCO2 VBG pO2 VBG HCO3 VBG O2 Saturation VBG Base Excess Sodium Potassium Chloride Carbon Dioxide Anion Gap BUN Creatinine Estim Creat Clear Calc Estimated GFR POC Glucose 297 H Random Glucose Lactic Acid 1.0 Calcium Phosphorus Magnesium Total Bilirubin AST ALT Alkaline Phosphatase Troponin I High Sens B-Natriuretic Peptide Total Protein Albumin TSH Free T4 Urine Color Urine Appearance Urine pH Ur Specific [place] Urine Protein Urine Glucose (UA) Urine Ketones Urine Blood Urine Nitrite Ur Leukocyte Esterase COVID-19 ([facility]) Negative COVID-19 Clin Com See Note Blood Type Antibody Screen Crossmatch Crossmatch ([facility]) 06/28/22 06/28/22 06/28/22 20:24 20:24 21:21 WBC RBC Hgb Hct MCV MCH MCHC RDW Plt Count MPV Immature Gran % (Auto) Neut % (Auto) Lymph % (Auto) [place] % (Auto) Eos % (Auto) Baso % (Auto) Lymph # (Auto) [place] # (Auto) Eos # (Auto) Baso # (Auto) Abs Immat Gran (auto) Absolute Neuts (auto) Absolute Nucleated RBC Nucleated RBC % (auto) PT INR O2 Saturation ABG pH at Pt Temp ABG pCO2 at Pt Temp ABG pO2 at Pt Temp ABG HCO3 ABG Base Excess (Actual) VBG pH VBG pCO2 VBG pO2 VBG HCO3 VBG O2 Saturation VBG Base Excess Sodium 129 L Potassium 6.7 H* Chloride 96 Carbon Dioxide 22 Anion Gap 18 BUN 83 H Creatinine 3.47 H Estim Creat Clear Calc 23.5 Estimated GFR 13 POC Glucose 302 H Random Glucose 314 H Lactic Acid Calcium 9.6 Phosphorus Magnesium Total Bilirubin AST ALT Alkaline Phosphatase Troponin I High Sens TNP B-Natriuretic Peptide Total Protein Albumin TSH Free T4 Urine Color Urine Appearance Urine pH Ur Specific [place] Urine Protein Urine Glucose (UA) Urine Ketones Urine Blood Urine Nitrite Ur Leukocyte Esterase COVID-19 ([facility]) COVID-19 Clin Com Blood Type Antibody Screen Crossmatch Crossmatch ([facility]) 06/28/22 06/28/22 06/28/22 21:57 23:27 23:27 WBC 17.1 H RBC 3.53 L Hgb 10.6 L Hct 32.9 L MCV 93.2 MCH 30.0 MCHC 32.2 RDW 14.8 Plt Count 269 MPV 10.7 Immature Gran % (Auto) 0.6 H Neut % (Auto) 67.3 Lymph % (Auto) 23.9 [place] % (Auto) 7.3 Eos % (Auto) 0.6 Baso % (Auto) 0.3 Lymph # (Auto) 4.1 [place] # (Auto) 1.3 H Eos # (Auto) 0.1 Baso # (Auto) 0.1 Abs Immat Gran (auto) 0.11 H Absolute Neuts (auto) 11.5 H Absolute Nucleated RBC 0.000 Nucleated RBC % (auto) 0.0 PT INR O2 Saturation ABG pH at Pt Temp ABG pCO2 at Pt Temp ABG pO2 at Pt Temp ABG HCO3 ABG Base Excess (Actual) VBG pH VBG pCO2 VBG pO2 VBG HCO3 VBG O2 Saturation VBG Base Excess Sodium 133 L Potassium 5.5 H Chloride 97 Carbon Dioxide 26 Anion Gap 16 BUN 82 H Creatinine 3.36 H Estim Creat Clear Calc 22.6 Estimated GFR 14 POC Glucose Random Glucose 260 H Lactic Acid Calcium 9.5 Phosphorus Magnesium Total Bilirubin AST ALT Alkaline Phosphatase Troponin I High Sens B-Natriuretic Peptide Total Protein Albumin TSH Free T4 Urine Color Yellow Urine Appearance Clear Urine pH 5.5 Ur Specific [place] 1.010 Urine Protein Negative Urine Glucose (UA) 500 H Urine Ketones Negative Urine Blood Negative Urine Nitrite Negative Ur Leukocyte Esterase Negative COVID-19 ([facility]) COVID-19 Clin Com Blood Type Antibody Screen Crossmatch Crossmatch ([facility]) 06/28/22 06/28/22 06/29/22 23:27 23:27 05:04 WBC RBC Hgb Hct MCV MCH MCHC RDW Plt Count MPV Immature Gran % (Auto) Neut % (Auto) Lymph % (Auto) [place] % (Auto) Eos % (Auto) Baso % (Auto) Lymph # (Auto) [place] # (Auto) Eos # (Auto) Baso # (Auto) Abs Immat Gran (auto) Absolute Neuts (auto) Absolute Nucleated RBC Nucleated RBC % (auto) PT INR O2 Saturation ABG pH at Pt Temp ABG pCO2 at Pt Temp ABG pO2 at Pt Temp ABG HCO3 ABG Base Excess (Actual) VBG pH 7.38 VBG pCO2 40 VBG pO2 41 VBG HCO3 24 VBG O2 Saturation 59.0 VBG Base Excess -0.2 Sodium Potassium Chloride Carbon Dioxide Anion Gap BUN Creatinine Estim Creat Clear Calc Estimated GFR POC Glucose Random Glucose Lactic Acid Calcium Phosphorus 5.0 H Magnesium Total Bilirubin AST ALT Alkaline Phosphatase Troponin I High Sens 25.4 H B-Natriuretic Peptide Total Protein Albumin TSH Free T4 Urine Color Urine Appearance Urine pH Ur Specific [place] Urine Protein Urine Glucose (UA) Urine Ketones Urine Blood Urine Nitrite Ur Leukocyte Esterase COVID-19 ([facility]) COVID-19 Clin Com Blood Type Antibody Screen Crossmatch Crossmatch ([facility]) 06/29/22 06/29/22 06/29/22 05:08 05:08 05:47 WBC 13.2 H RBC 3.14 L Hgb 9.6 L Hct 29.9 L MCV 95.2 MCH 30.6 MCHC 32.1 RDW 15.1 Plt Count 240 MPV 10.9 Immature Gran % (Auto) 0.4 Neut % (Auto) 71.0 Lymph % (Auto) 20.0 [place] % (Auto) 7.7 Eos % (Auto) 0.5 Baso % (Auto) 0.4 Lymph # (Auto) 2.6 [place] # (Auto) 1.0 Eos # (Auto) 0.1 Baso # (Auto) 0.1 Abs Immat Gran (auto) 0.05 H Absolute Neuts (auto) 9.4 H Absolute Nucleated RBC 0.000 Nucleated RBC % (auto) 0.0 PT INR O2 Saturation ABG pH at Pt Temp ABG pCO2 at Pt Temp ABG pO2 at Pt Temp ABG HCO3 ABG Base Excess (Actual) VBG pH VBG pCO2 VBG pO2 VBG HCO3 VBG O2 Saturation VBG Base Excess Sodium 133 L 133 L Potassium 6.7 H* D 7.0 H* Chloride 97 98 Carbon Dioxide 26 27 Anion Gap 17 15 BUN 84 H Creatinine 3.69 H Estim Creat Clear Calc 20.6 Estimated GFR 13 POC Glucose Random Glucose 164 H Lactic Acid Calcium 9.2 Phosphorus Magnesium Total Bilirubin 0.2 AST 24 ALT 46 H Alkaline Phosphatase 50 Troponin I High Sens B-Natriuretic Peptide Total Protein 6.6 Albumin 3.2 L TSH Free T4 Urine Color Urine Appearance Urine pH Ur Specific [place] Urine Protein Urine Glucose (UA) Urine Ketones Urine Blood Urine Nitrite Ur Leukocyte Esterase COVID-19 ([facility]) COVID-19 [facility] Blood Type Antibody Screen Crossmatch Crossmatch ([facility]) 06/29/22 06/29/22 06/29/22 09:02 11:35 13:02 WBC RBC Hgb Hct MCV MCH MCHC RDW Plt Count MPV Immature Gran % (Auto) Neut % (Auto) Lymph % (Auto) [place] % (Auto) Eos % (Auto) Baso % (Auto) Lymph # (Auto) [place] # (Auto) Eos # (Auto) Baso # (Auto) Abs Immat Gran (auto) Absolute Neuts (auto) Absolute Nucleated RBC Nucleated RBC % (auto) PT INR O2 Saturation ABG pH at Pt Temp ABG pCO2 at Pt Temp ABG pO2 at Pt Temp ABG HCO3 ABG Base Excess (Actual) VBG pH VBG pCO2 VBG pO2 VBG HCO3 VBG O2 Saturation VBG Base Excess Sodium 133 L 131 L Potassium 6.4 H* 7.9 H* D Chloride 96 94 L Carbon Dioxide 27 23 Anion Gap 16 22 H BUN 85 H 81 H Creatinine 3.46 H 3.59 H Estim Creat Clear Calc 20.5 19.7 Estimated GFR 14 13 POC Glucose 347 H Random Glucose 262 H 448 H* Lactic Acid Calcium 9.5 9.5 Phosphorus Magnesium 2.9 H Total Bilirubin AST ALT Alkaline Phosphatase Troponin I High Sens B-Natriuretic Peptide Total Protein Albumin TSH Free T4 Urine Color Urine Appearance Urine pH Ur Specific [place] Urine Protein Urine Glucose (UA) Urine Ketones Urine Blood Urine Nitrite Ur Leukocyte Esterase COVID-19 ([facility]) COVID-19 [facility] Blood Type Antibody Screen Crossmatch Crossmatch ([facility]) 06/29/22 06/29/22 06/29/22 13:22 13:50 13:52 WBC RBC Hgb Hct MCV MCH MCHC RDW Plt Count MPV Immature Gran % (Auto) Neut % (Auto) Lymph % (Auto) [place] % (Auto) Eos % (Auto) Baso % (Auto) Lymph # (Auto) [place] # (Auto) Eos # (Auto) Baso # (Auto) Abs Immat Gran (auto) Absolute Neuts (auto) Absolute Nucleated RBC Nucleated RBC % (auto) PT INR O2 Saturation 90.0 ABG pH at Pt Temp 7.37 ABG pCO2 at Pt Temp 33 ABG pO2 at Pt Temp 68 L ABG HCO3 19 L ABG Base Excess (Actual) -4.5 VBG pH VBG pCO2 VBG pO2 VBG HCO3 VBG O2 Saturation VBG Base Excess Sodium 132 L Potassium 7.7 H* Chloride 94 L Carbon Dioxide 23 Anion Gap 23 H BUN 83 H Creatinine 3.65 H Estim Creat Clear Calc 19.4 Estimated GFR 13 POC Glucose Random Glucose 429 H* Lactic Acid Calcium 9.6 Phosphorus Magnesium Total Bilirubin AST ALT Alkaline Phosphatase Troponin I High Sens B-Natriuretic Peptide Total Protein Albumin TSH Free T4 Urine Color Urine Appearance Urine pH Ur Specific [place] Urine Protein Urine Glucose (UA) Urine Ketones Urine Blood Urine Nitrite Ur Leukocyte Esterase COVID-19 ([facility]) COVID-19 Clin Com Blood Type A Negative Antibody Screen NEGATIVE Crossmatch See Detail Crossmatch ([facility]) See Detail Discharge Plan Discharge Anticipated Discharge Date/Time: 06/29/22 21:00 Patient Disposition: Xfer Acute Care Hospital Discharge Diagnosis: Symptomatic bradycardia, tachy-scot syndrome, acute renal failure. Referrals: Shara Verdugo MD [Primary Care Provider] - 1 Week Discharge Medications: Continued (DME) Shower Chair Misc See Rx Instructions .ROUTE .MEDSUPPLY Qty: 1 0RF Rx Instructions: As directed (DME) [facility] See Rx Instructions .ROUTE .MEDSUPPLY Qty: 1 0RF Rx Instructions: with seat and wheels lactulose 10 gram/15 mL solution 10 g PO BEDTIME PRN (Reason: constipation) 30 Days Qty: 450 2RF amlodipine 5 mg tablet 5 mg PO DAILY 90 Days Qty: 90 3RF Rx Instructions: Reduction in dose metoprolol tartrate 25 mg tablet 50 mg PO BID 90 Days Qty: 360 3RF sennosides [Senna Laxative] 8.6 mg tablet 17.2 mg PO BEDTIME PRN (Reason: constipation) 30 Days Qty: 60 5RF allopurinol 300 mg tablet 300 mg PO DAILY Qty: 30 6RF aspirin 81 mg tablet,delayed release (DR/EC) 81 mg PO DAILY Qty: 30 6RF cholecalciferol (vitamin D3) 50 mcg (2,000 unit) capsule 50 mcg PO DAILY 90 Days Qty: 90 2RF spironolactone 25 mg tablet 25 mg PO DAILY Qty: 90 11RF rosuvastatin 40 mg tablet 40 mg PO DAILY 90 Days Qty: 90 3RF furosemide 40 mg tablet 40 mg PO DAILY 90 Days Qty: 90 2RF Hold Instructions: Resume on 01/31/22. hold and repeat bmp ,follow up with nephrology before staring lasix. ferrous sulfate 325 mg (65 mg iron) tablet 325 mg PO BID Qty: 60 3RF clopidogrel [Plavix] 75 mg tablet 75 mg PO DAILY Qty: 90 1RF amitriptyline 25 mg Tablet 25 mg PO BEDTIME ascorbic acid (vitamin C) [Vitamin C With Allie Hips] 500 mg Tablet 500 mg PO DAILY lisinopril 5 mg tablet 5 mg PO DAILY 90 Days Qty: 90 3RF Hold Instructions: Resume on 01/24/22. please repeat bmp and will need nephrology clearence before starting lisinopril insulin regular hum U-500 conc 500 unit/mL solution 0 - 450 unit subcut DAILY PRN (Reason: for insulin pump) (DME) blood sugar diagnostic Strip See Rx Instructions Not Applicable .MEDSUPPLY Qty: 10 Rx Instructions: As directed gabapentin 300 mg capsule 300 mg PO BID Farxiga 10 mg tablet 10 mg PO DAILY Discharge Orders: Discharge Order (Routine); Ordered 06/29/22 Ordered By: Glen Matias Activity on Discharge: Bedrest Care Plan Goals: Evaluation for ischemia Health Concerns: Tachy-scot syndrome Plan of Treatment: Evaluation for ischemia Assessment:
[2022-06-29 17:17] LABS: Glucose, Whole Blood 355 mg/dL (60-115)
[2022-06-29 20:35] LABS: Glucose, Whole Blood 268 mg/dL (60-115)
[2022-06-30 01:17] LABS: ABG Refer to POC result
--- NOTE | 2022-06-30 02:31 | CONS_ITS ---
DATE OF SERVICE: 06/29/2022 REASON FOR CONSULTATION: I was asked to see the patient to assist in evaluation and management of patient's acute kidney injury and severe hyperkalemia. 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 In the emergency room, she had lab work done, which showed a potassium of 6.3 and actually potassium has been very challenging to control over the past 12 to 18 hours. Potassium has gone as high as 7 and she has required medical treatment. She did get K binders orally and started making more urine once she was placed on some pressors and the hope was that she would not need dialysis. Potassium is being followed closely throughout the day and it has gone up again, now to 7.7 and I talked with the ICU team and we are going to emergently dialyze the patient because of refractory hyperkalemia. She is on spironolactone and CHADD inhibitor, which is probably playing a role in why the potassium remains high. The patient is a poor historian. Information was obtained from electronic medical record. She is able to converse with me. She denies any chest pain, fever, sweats, or chills. She was on some antibiotics recently. It is unclear whether she was on Bactrim, which may be playing a role in why she has hyperkalemia that is so hard to manage. MEDICATIONS: On admission noted in the admitting notes. Current medications noted in the MAR. SOCIAL HISTORY: She is a nonsmoker, nondrinker. No illicit drug use. REVIEW OF SYSTEMS: As noted above. PHYSICAL EXAMINATION: VITAL SIGNS: Blood pressure of 130/70 with a heart rate in the 80s. She did have episodes of heart rate in the 30s with hyperkalemia when she came in last night. HEAD: Atraumatic and normocephalic. NECK: Supple. Mucous membranes are moist. Unable to assess for JVD. She has short, round neck. LUNGS: Decreased breath sounds at the bases. CARDIAC: Regular rate and rhythm. ABDOMEN: Obese, soft, nontender. EXTREMITIES: Shows 1+ edema with chronic skin changes. LABORATORY DATA: Most recently from 1:50 p.m., sodium 132, potassium 7.7, chloride 94, bicarb 23. This specimen is not hemolyzed. BUN 83, creatinine 3.65, blood sugars 429. As mentioned, her potassium was 6.3 on admission and then has been increasingly difficult to control despite ongoing treatment. Hemoglobin of 9.6, hematocrit 29.9, white blood cell count 13.2, platelet count of 240. IMPRESSION: A 61-YEAR-OLD DIABETIC WITH ACUTE KIDNEY INJURY ON CHRONIC KIDNEY DISEASE AND SEVERE HYPERKALEMIA THAT HAS BEEN RECALCITRANT TO RESPOND TO MEDICAL THERAPY. 1. Severe hyperkalemia. ICU team has placed a dialysis catheter. I contacted the dialysis nurse and she is going to get emergent dialysis on a 1K bath. 2. Acute kidney injury. Our expectations are that she will have a response to IV fluids and stopping some medications and hopefully her renal function will bounce back to her baseline, which creatinine baseline is around 2 to 2.5 range. Again, it is mostly consistent with multifactorial acute tubular necrosis and renal hypoperfusion. 3. Stage 4 chronic kidney disease. Baseline creatinine as mentioned around 2 to 2.5. RECOMMENDATIONS: 1. At this time include continue medical treatment of hyperkalemia with IV calcium, insulin, along with beta 2 nebulizer treatments and K binders. Her sugar now is 400 and the IV insulin should help lower sugar transiently. The dialysis nurse has been contacted and will go ahead and do dialysis on a 1K bath for 3 hours. 2. We will follow the patient closely with the team. MD ELOY Villatoro/DAVID / [id number]
[2022-06-30 12:23] LABS: Lyme Abs Screen <0.90 index
[2022-07-01 13:09] LABS: Triiodothyronine T3 Free 2.7 pg/mL (2.3-4.2)
[2022-07-04 16:19] LABS: A. Phagocytophilum Ab IgG <1:64 (<1:64); A. Phagocytophilum Ab IgM <1:20 (<1:20); E. Chaffeensis Ab IgG <1:64 (<1:64); E. Chaffeensis Ab IgM <1:20 (<1:20)
== END 2022-06-29 21:00 | disposition short-term general hospital (02) | DRG 201 ==
LOC: HO.ED 19:37 → HO.EDOVER 19:41 → HO.ICU 19:59
PROVIDERS: Admitting Provider Physician Assistant Medical; Emergency Provider Student in an Organized Health Care Education/Training Program; PCP Internal Medicine; Visit Provider Internal Medicine Pulmonary Disease
DX: I49.5 Sick sinus syndrome (principal); I50.33 Acute on chronic diastolic (congestive) heart failure; N17.9 Acute kidney failure, unspecified; E87.1 Hypo-osmolality and hyponatremia; I13.0 Hypertensive heart and chronic kidney disease with heart failure and stage 1 through stage 4 chronic kidney disease, or unspecified chronic kidney disease; E86.1 Hypovolemia; N18.4 Chronic kidney disease, stage 4 (severe); I25.10 Atherosclerotic heart disease of native coronary artery without angina pectoris; E87.5 Hyperkalemia; E11.22 Type 2 diabetes mellitus with diabetic chronic kidney disease; E11.51 Type 2 diabetes mellitus with diabetic peripheral angiopathy without gangrene; G47.33 Obstructive sleep apnea (adult) (pediatric); E66.01 Morbid (severe) obesity due to excess calories; Z68.41 Body mass index [BMI] 40.0-44.9, adult; E78.00 Pure hypercholesterolemia, unspecified; Z88.8 Allergy status to other drugs, medicaments and biological substances; Z95.5 Presence of coronary angioplasty implant and graft; Z79.4 Long term (current) use of insulin; Z79.02 Long term (current) use of antithrombotics/antiplatelets; Z79.82 Long term (current) use of aspirin; Z79.899 Other long term (current) drug therapy
CPT/HCPCS: 36415; 36600; 71045; 80048; 80051; 80053; 81003; 82803; 82947; 83605; 83735; 83880; 84100; 84439; 84443; 84481; 84484; 85025; 85610; 86617; 86618; 86666; 86850; 86900; 86901; 86920; 86922; 87040; 87635; 90999; 93005; 93306; 94640; 94660; 99284; J0461; J0611; J0696; J1265; J1610; J1643; J1940; J2250; J2405; J3010; J3475

== ENCOUNTER → 2022-07-21 10:32 | Outpatient (REF) | payer OTHER, SELFPAY ==
--- NOTE | 2022-07-21 10:36 | HM_ITS ---
Conclusion: 1. Patient was monitored for total period of 2 days 2. Baseline was normal sinus rhythm with average heart rate of 70 beats per minute 3. No significant pauses or bradycardia noted 4. Underlying bundle-branch block and first-degree AV block noted 5. Occasional PVCs with total burden of 0.88% 6. No patient reported events MTDD
== END ==
LOC: HO.CARD 10:32
PROVIDERS: PCP Internal Medicine; Visit Provider Internal Medicine Cardiovascular Disease
DX: I48.91 Unspecified atrial fibrillation (principal)
CPT/HCPCS: 93225

== ENCOUNTER 2022-07-25 13:46 | Outpatient (REF) | payer OTHER, SELFPAY ==
--- NOTE | ~2022-07-25 | US_ITS ---
EXAMINATION: ANKLE-BRACHIAL INDICES SINGLE LEVEL PULSE VOLUME RECORDING ARTERIAL DUPLEX BILATERAL LEGS CLINICAL INFORMATION: Peripheral vascular disease. COMPARISON: 01/21/2022. TECHNIQUE: Ankle-brachial indices and PVR at the ankle were obtained. Duplex Doppler of the bilateral lower extremity arterial systems was performed. FINDINGS: RIGHT: Ankle-brachial index: 0.72 PVR: Abnormal Common femoral: PSV 216 cm/s. Triphasic waveform. Deep femoral: PSV 215 cm/s. Triphasic waveform. Proximal superficial femoral: PSV 292 cm/s. Monophasic waveform. Mid superficial femoral: PSV 274 cm/s. Triphasic waveform. Distal superficial femoral: PSV 182 cm/s. Monophasic waveform. Popliteal: PSV 123 cm/s. Biphasic waveform. Posterior tibial: PSV 33 cm/s. Monophasic waveform. Peroneal: PSV 50 cm/s. Monophasic waveform. LEFT: Ankle-brachial index: 0.60 PVR: Abnormal Common femoral: PSV 338 cm/s. Monophasic waveform. Deep femoral: PSV 244 cm/s. Biphasic waveform. Proximal superficial femoral: PSV 261 cm/s. Monophasic waveform. Mid superficial femoral: PSV 112 cm/s. Monophasic waveform. Distal superficial femoral: PSV 194 cm/s. Monophasic waveform. Popliteal: PSV 135 cm/s. Monophasic waveform. Posterior tibial: PSV 29 cm/s. Monophasic waveform. Peroneal: Not visible. US/US arterial duplex LE BI IMPRESSION: Right: Abnormal BART 0.72. Abnormal PVR. Hemodynamically significant femoropopliteal and tibial level disease. Left: Abnormal BART 0.60. Abnormal PVR. Hemodynamically significant tibial level disease. There may also be a component of femoropopliteal disease..
--- NOTE | ~2022-07-25 | US_ITS ---
EXAMINATION: ANKLE-BRACHIAL INDICES SINGLE LEVEL PULSE VOLUME RECORDING ARTERIAL DUPLEX BILATERAL LEGS CLINICAL INFORMATION: Peripheral vascular disease. COMPARISON: 01/21/2022. TECHNIQUE: Ankle-brachial indices and PVR at the ankle were obtained. Duplex Doppler of the bilateral lower extremity arterial systems was performed. FINDINGS: RIGHT: Ankle-brachial index: 0.72 PVR: Abnormal Common femoral: PSV 216 cm/s. Triphasic waveform. Deep femoral: PSV 215 cm/s. Triphasic waveform. Proximal superficial femoral: PSV 292 cm/s. Monophasic waveform. Mid superficial femoral: PSV 274 cm/s. Triphasic waveform. Distal superficial femoral: PSV 182 cm/s. Monophasic waveform. Popliteal: PSV 123 cm/s. Biphasic waveform. Posterior tibial: PSV 33 cm/s. Monophasic waveform. Peroneal: PSV 50 cm/s. Monophasic waveform. LEFT: Ankle-brachial index: 0.60 PVR: Abnormal Common femoral: PSV 338 cm/s. Monophasic waveform. Deep femoral: PSV 244 cm/s. Biphasic waveform. Proximal superficial femoral: PSV 261 cm/s. Monophasic waveform. Mid superficial femoral: PSV 112 cm/s. Monophasic waveform. Distal superficial femoral: PSV 194 cm/s. Monophasic waveform. Popliteal: PSV 135 cm/s. Monophasic waveform. Posterior tibial: PSV 29 cm/s. Monophasic waveform. Peroneal: Not visible. US/US BART complete IMPRESSION: Right: Abnormal BART 0.72. Abnormal PVR. Hemodynamically significant femoropopliteal and tibial level disease. Left: Abnormal BART 0.60. Abnormal PVR. Hemodynamically significant tibial level disease. There may also be a component of femoropopliteal disease..
--- NOTE | ~2022-07-25 | US_ITS ---
EXAMINATION: Abdominal aortic and bilateral iliac Doppler ultrasound CLINICAL INFORMATION: Peripheral vascular disease with question of inflow disease. COMPARISON: None available. TECHNIQUE: Trammell-scale, color Doppler and spectral Doppler evaluation of the abdominal aorta and bilateral iliac artery. Technically limited due to body habitus. FINDINGS: The aorta is normal in caliber. The measurements of the aorta in maximum AP as follows: Proximal: 1.8 cm. Mid: 2.3 cm. Distal: 1.3 cm. PSV: 129 cm/s. Biphasic waveform. Right Common Iliac Artery: Monophasic waveform 142 cm/s. Right External Iliac Artery: Monophasic waveform 214 cm/s. Left Common Iliac Artery: Not seen. Left External Iliac Artery: Monophasic waveform 254 cm/s. US/US abdominal aortic aneurysm IMPRESSION: Negative for abdominal aortic aneurysm. Abnormal waveforms in the distal aorta and iliac arteries may represent inflow disease. The exam is limited by body habitus.
== END 2022-07-25 13:47 | disposition home or self-care (01) ==
LOC: HO.US 13:46
PROVIDERS: PCP Internal Medicine; Visit Provider Surgery Vascular Surgery
DX: I73.9 Peripheral vascular disease, unspecified (principal)
CPT/HCPCS: 76706; 93923; 93925

== ENCOUNTER → 2022-08-23 12:53 | Outpatient (BNVA) | payer OTHER, SELFPAY | PROVIDERS: PCP Internal Medicine; Visit Provider Surgery Vascular Surgery | DX: I73.9 Peripheral vascular disease, unspecified (principal) | CPT/HCPCS: 99212 ==

== ENCOUNTER 2022-08-26 11:38 | Outpatient (REF) | payer OTHER, SELFPAY ==
[2022-08-26 13:53] LABS: Anion Gap 12 (12-20); Blood Urea Nitrogen 25 mg/dL (9-16); Calcium 9.7 mg/dL (8.4-10.2); Carbon Dioxide 32 mmol/L (22-29); Chloride 98 mmol/L (96-108); Estimated Glomerular Filt Rate 30; Glucose Random 329 mg/dL (60-115); Potassium 3.8 mmol/L (3.3-5.1); Sodium 138 mmol/L (135-145)
[2022-08-26 13:59] LABS: B Type Natriuretic Peptide 100 pg/mL (<100)
== END 2022-08-26 11:39 | disposition home or self-care (01) ==
LOC: HO.LAB 11:38
PROVIDERS: PCP Internal Medicine; Referring Provider Internal Medicine; Visit Provider Internal Medicine Cardiovascular Disease
DX: I25.10 Atherosclerotic heart disease of native coronary artery without angina pectoris (principal); I50.32 Chronic diastolic (congestive) heart failure; I48.0 Paroxysmal atrial fibrillation
CPT/HCPCS: 36415; 80048; 83880; 93005; 99212

== ENCOUNTER → 2022-08-31 14:12 | Outpatient (BNVA) | payer OTHER, SELFPAY | PROVIDERS: PCP Internal Medicine; Visit Provider Internal Medicine | DX: E66.01 Morbid (severe) obesity due to excess calories (principal); G47.33 Obstructive sleep apnea (adult) (pediatric); J98.4 Other disorders of lung; Z99.89 Dependence on other enabling machines and devices; Z68.41 Body mass index [BMI] 40.0-44.9, adult | CPT/HCPCS: 99212 ==

== ENCOUNTER 2022-10-24 15:31 | Outpatient (REF) | payer OTHER, SELFPAY ==
[2022-10-24 16:18] LABS: INTERNATIONAL NORM RATIO 1.1 (0.9-1.1); Prothrombin Time 12.6 SEC (10.0-13.1)
== END 2022-10-24 15:32 | disposition home or self-care (01) ==
LOC: HO.LAB 15:31
PROVIDERS: PCP Internal Medicine; Visit Provider Nurse Practitioner Family
DX: I50.32 Chronic diastolic (congestive) heart failure (principal)
CPT/HCPCS: 36415; 85610

== ENCOUNTER 2022-10-25 10:43 | Day surgery (SDC) | payer OTHER, SELFPAY ==
--- NOTE | 2022-10-05 13:04 | P.CONAN_ITS ---
HPI - Anesthesia Eval Consult details Narrative: 62yo F for CARDIOMEMS PMFSH Active Problems Active Problems: All Active Problems (Updated 08/31/22 @ 14:54 by Real Slade MD) Restrictive lung disease (Acute) Paroxysmal atrial fibrillation (Acute) BRYNN on CPAP (Acute) Hospital discharge follow-up (Acute) Cerebrovascular accident (CVA) due to occlusion of left middle cerebral artery (Acute) RTA (renal tubular acidosis) (Acute) Tachy-scot syndrome (Acute) Afib (Acute) Symptomatic bradycardia (Acute) CHF exacerbation (Acute) Hyperkalemia (Acute) Arrhythmia, atrial (Acute) Acute on chronic renal failure (Acute) E-coli UTI (Acute) CAD (coronary artery disease) (Acute) Chronic heart failure with preserved ejection fraction (HFpEF) (Acute) Obesity (BMI 30-39.9) (Acute) Cataract (Acute) Pre-op evaluation (Acute) Hospital discharge follow-up (Acute) Type 2 diabetes mellitus, with long-term current use of insulin (Acute) CKD (chronic kidney disease) stage 4, GFR 15-29 ml/min (Acute) Diabetic foot ulcer (Acute) Acute kidney injury superimposed on chronic kidney disease (Acute) PVD (peripheral vascular disease) (Acute) Morbid obesity (Acute) Pre-op examination (Acute) Tubular adenoma of colon (Acute) Postmenopausal (Acute) Physical exam (Acute) Right hemiparesis (Acute) Skin lesion (Acute) Lumbar degenerative disc disease (Acute) Well woman exam (Acute) Postmenopausal bleeding (Acute) Anemia (Acute) Congestive heart failure (Acute) CKD (chronic kidney disease) (Acute) Hypercholesteremia (Acute) Past Medical History Medical History (Updated 08/31/22 @ 14:54 by Real Slade MD) Arthritis Asthma CAD (coronary artery disease) Cerebrovascular accident (CVA) due to occlusion of left middle cerebral artery CKD (chronic kidney disease) CKD (chronic kidney disease) stage 4, GFR 15-29 ml/min Diabetes Gout Hypercholesteremia Hypertension Lumbar degenerative disc disease BRYNN (obstructive sleep apnea) Restrictive lung disease Right hemiparesis Sinusitis Skin lesion Stroke Family History Family History Father Stroke Mother Myocardial infarction Paternal Uncle Cancer Surgical History Surgical History H/O colonoscopy H/O right breast biopsy History of bilateral tubal ligation History of cataract surgery History of coronary angioplasty with insertion of stent History of esophagogastroduodenoscopy (EGD) History of heart surgery Social History Social History Household Members: Family Housing: House Are you a primary personal care home administrator to a significant other at home: No Alcohol intake: never Patient Tobacco Use Status: Never used Tobacco e-Cigarette/Vaping Use: Never Used Second Hand Smoke Exposure: No Advance Directives Date on File: 01/25/22 service: No Current occupational status: unemployed and disabled Sexual orientation: Straight/Heterosexual Gender identity: Female Cognitive needs: Yes Hearing needs: No Vision needs: No Meds Allergies Allergy/AdvReac Type Severity Reaction Status Date / Time lactose Allergy Intermediate Vomiting Verified 08/31/22 14:40 amlodipine Allergy Mild leg edema Verified 08/31/22 14:40 liraglutide [From VICTOZA] Allergy Mild VOMITING RUBI Verified 08/31/22 14:40 Home Medications Medication Instructions Recorded Confirmed Last Taken Type blood sugar diagnostic #10 ea 02/24/20 08/11/22 Unknown History insulin regular hum U-500 conc 500 0 - 450 unit subcut DAILY PRN for 02/24/20 08/26/22 01/21/22 History unit/mL subcutaneous soln insulin pump dapagliflozin 10 mg tablet 10 mg PO DAILY 10/12/21 08/26/22 06/28/22 History ([facility]) gabapentin 300 mg capsule 300 mg PO BID 01/19/22 08/26/22 06/28/22 History amitriptyline 25 mg tablet 25 mg PO BEDTIME 06/17/22 08/26/22 06/27/22 History apixaban 5 mg tablet (Eliquis) 5 mg PO BID 07/07/22 08/26/22 Unknown History hydralazine 25 mg tablet 25 mg PO BID 08/23/22 08/26/22 Unknown History Exam Exam Date and Time: October 05, 2022 1304 Pertinent Lab Results Pertinent Lab Results: Laboratory Tests 08/11/22 08/26/22 12:50 12:36 WBC 7.3 Hgb 13.3 D Hct 42.1 D Plt Count 239 Sodium 138 Potassium 3.8 Chloride 98 Carbon Dioxide 32 H BUN 25 H Creatinine 1.72 H Narrative Narrative: EKG 07/2022 ?normal sinus rhythm with left bundle-branch block ECHO 06/2022 Conclusions: - 1. Normal LV systolic function mild LVH with grade 2 diastolic dysfunction next 2. Limited visualization of cardiac valve with? cardiac valvular Doppler within normal limits? 3. Normal RV systolic pressure ? 4. No gross pericardial effusion ? ?? Holter 06/2022 Conclusion: 1. Patient was monitored for total period of 2 days 2. Baseline was normal sinus rhythm with average heart rate of 70 beats per minute 3. No significant pauses or bradycardia noted 4. Underlying bundle-branch block and first-degree AV block noted 5. Occasional PVCs with total burden of 0.88% 6. No patient reported events Assessment and Plan Assessment Anesthesia Assessment: Chart Reviewed
--- NOTE | 2022-10-24 08:24 | HO.ANESPROP2 ---
Documented by User: Lisa Rincon NP 10/24/22 08:26 HPI - Anesthesia Eval Consult details Narrative: 62yo F for CARDIOMEMS PMFSH Active Problems Active Problems: All Active Problems (Updated 10/11/22 @ 15:11 by Shara Grimes MD) CKD (chronic kidney disease) stage 3, GFR 30-59 ml/min (Acute) Lumbar pain (Acute) Restrictive lung disease (Acute) Paroxysmal atrial fibrillation (Acute) BRYNN on CPAP (Acute) Hospital discharge follow-up (Acute) Cerebrovascular accident (CVA) due to occlusion of left middle cerebral artery (Acute) RTA (renal tubular acidosis) (Acute) Tachy-scot syndrome (Acute) Afib (Acute) Symptomatic bradycardia (Acute) CHF exacerbation (Acute) Hyperkalemia (Acute) Arrhythmia, atrial (Acute) Acute on chronic renal failure (Acute) E-coli UTI (Acute) CAD (coronary artery disease) (Acute) Chronic heart failure with preserved ejection fraction (HFpEF) (Acute) Obesity (BMI 30-39.9) (Acute) Cataract (Acute) Pre-op evaluation (Acute) Hospital discharge follow-up (Acute) Type 2 diabetes mellitus, with long-term current use of insulin (Acute) CKD (chronic kidney disease) stage 4, GFR 15-29 ml/min (Acute) Diabetic foot ulcer (Acute) Acute kidney injury superimposed on chronic kidney disease (Acute) PVD (peripheral vascular disease) (Acute) Morbid obesity (Acute) Pre-op examination (Acute) Tubular adenoma of colon (Acute) Postmenopausal (Acute) Physical exam (Acute) Right hemiparesis (Acute) Skin lesion (Acute) Lumbar degenerative disc disease (Acute) Well woman exam (Acute) Postmenopausal bleeding (Acute) Anemia (Acute) Congestive heart failure (Acute) CKD (chronic kidney disease) (Acute) Hypercholesteremia (Acute) Past Medical History Medical History (Updated 10/11/22 @ 15:11 by Shara Grimes MD) Arthritis Asthma CAD (coronary artery disease) Cerebrovascular accident (CVA) due to occlusion of left middle cerebral artery CKD (chronic kidney disease) CKD (chronic kidney disease) stage 4, GFR 15-29 ml/min Diabetes Gout Hypercholesteremia Hypertension Lumbar degenerative disc disease BRYNN (obstructive sleep apnea) Restrictive lung disease Right hemiparesis Sinusitis Skin lesion Stroke Family History Family History Father Stroke Mother Myocardial infarction Paternal Uncle Cancer Surgical History Surgical History H/O colonoscopy H/O right breast biopsy History of bilateral tubal ligation History of cataract surgery History of coronary angioplasty with insertion of stent History of esophagogastroduodenoscopy (EGD) History of heart surgery Social History Social History Household Members: Family Housing: House Are you a primary dog daycare provider to a significant other at home: No Alcohol intake: never Patient Tobacco Use Status: Never used Tobacco e-Cigarette/Vaping Use: Never Used Second Hand Smoke Exposure: No Use of substances other than those prescribed or required for medical reasons: No Are you DNR?: No Advance Directives: No Advance Directives Information Provided: Yes Advance Directives Date on File: 01/25/22 service: No Current occupational status: unemployed and disabled Sexual orientation: Straight/Heterosexual Gender identity: Female Cognitive needs: Yes Hearing needs: No Vision needs: No Meds Allergies Allergy/AdvReac Type Severity Reaction Status Date / Time lactose Allergy Intermediate Vomiting Verified 10/11/22 13:57 amlodipine Allergy Mild leg edema Verified 10/11/22 13:57 liraglutide [From VICTOZA] Allergy Mild VOMITING RUBI Verified 10/11/22 13:57 Home Medications Medication Instructions Recorded Confirmed Last Taken Type blood sugar diagnostic #10 ea 02/24/20 10/11/22 Unknown History insulin regular hum U-500 conc 500 0 - 450 unit subcut DAILY PRN for 02/24/20 10/11/22 01/21/22 History unit/mL subcutaneous soln insulin pump dapagliflozin propanediol 10 mg 10 mg PO DAILY 10/12/21 10/11/22 06/28/22 History tablet (Farxiga) gabapentin 300 mg capsule 300 mg PO BID 01/19/22 10/11/22 06/28/22 History amitriptyline 25 mg tablet 25 mg PO BEDTIME 06/17/22 10/11/22 06/27/22 History apixaban 5 mg tablet (Eliquis) 5 mg PO BID 07/07/22 10/11/22 Unknown History hydralazine 25 mg tablet 25 mg PO BID 08/23/22 10/11/22 Unknown History furosemide 40 mg tablet 40 mg PO BID 10/11/22 10/11/22 Unknown History Exam Exam Date and Time: October 24, 2022823 Pertinent Lab Results Pertinent Lab Results: Laboratory Tests 08/11/22 08/26/22 12:50 12:36 WBC 7.3 Hgb 13.3 D Hct 42.1 D Plt Count 239 Sodium 138 Potassium 3.8 Chloride 98 Carbon Dioxide 32 H BUN 25 H Creatinine 1.72 H Narrative Narrative: EKG 07/2022 normal sinus rhythm with left bundle-branch block Holter 06/2022 Conclusion: 1. Patient was monitored for total period of 2 days 2. Baseline was normal sinus rhythm with average heart rate of 70 beats per minute 3. No significant pauses or bradycardia noted 4. Underlying bundle-branch block and first-degree AV block noted 5. Occasional PVCs with total burden of 0.88% 6. No patient reported events ECHO 06/2022 Conclusions: - 1. Normal LV systolic function mild LVH with grade 2 diastolic dysfunction next 2. Limited visualization of cardiac valve with? cardiac valvular Doppler within normal limits? 3. Normal RV systolic pressure ? 4. No gross pericardial effusion ? Assessment and Plan Assessment Anesthesia Assessment: Chart Reviewed Documented by User: Carmelo Rapp MD 10/25/22 15:06 [facility] Past Medical History Medical History (Updated 10/11/22 @ 15:11 by Shara Grimes MD) Arthritis Asthma CAD (coronary artery disease) Cerebrovascular accident (CVA) due to occlusion of left middle cerebral artery CKD (chronic kidney disease) CKD (chronic kidney disease) stage 4, GFR 15-29 ml/min Diabetes Gout Hypercholesteremia Hypertension Lumbar degenerative disc disease BRYNN (obstructive sleep apnea) Restrictive lung disease Right hemiparesis Sinusitis Skin lesion Stroke Family History Family History Father Stroke Mother Myocardial infarction Paternal Uncle Cancer Family history of problems with anesthesia: No Surgical History Surgical History H/O colonoscopy H/O right breast biopsy History of bilateral tubal ligation History of cataract surgery History of coronary angioplasty with insertion of stent History of esophagogastroduodenoscopy (EGD) History of heart surgery History of Problems with Anesthesia: No Social History Social History Household Members: Family Housing: House Are you a primary dog daycare provider to a significant other at home: No Alcohol intake: never Patient Tobacco Use Status: Never used Tobacco e-Cigarette/Vaping Use: Never Used Second Hand Smoke Exposure: No Use of substances other than those prescribed or required for medical reasons: No Are you DNR?: No Advance Directives: No Advance Directives Information Provided: Yes Advance Directives Date on File: 01/25/22 service: No Current occupational status: unemployed and disabled Sexual orientation: Straight/Heterosexual Gender identity: Female Cognitive needs: Yes Hearing needs: No Vision needs: No Meds Allergies Allergy/AdvReac Type Severity Reaction Status Date / Time lactose Allergy Intermediate Vomiting Verified 10/11/22 13:57 amlodipine Allergy Mild leg edema Verified 10/11/22 13:57 liraglutide [From VICTOZA] Allergy Mild VOMITING RUBI Verified 10/11/22 13:57 Home Medications Medication Instructions Recorded Confirmed Last Taken Type blood sugar diagnostic #10 ea 02/24/20 10/11/22 Unknown History insulin regular hum U-500 conc 500 0 - 450 unit subcut DAILY PRN for 02/24/20 10/11/22 01/21/22 History unit/mL subcutaneous soln insulin pump dapagliflozin propanediol 10 mg 10 mg PO DAILY 10/12/21 10/11/22 06/28/22 History tablet (Farxiga) gabapentin 300 mg capsule 300 mg PO BID 01/19/22 10/11/22 06/28/22 History amitriptyline 25 mg tablet 25 mg PO BEDTIME 06/17/22 10/11/22 06/27/22 History apixaban 5 mg tablet (Eliquis) 5 mg PO BID 07/07/22 10/11/22 Unknown History hydralazine 25 mg tablet 25 mg PO BID 08/23/22 10/11/22 Unknown History furosemide 40 mg tablet 40 mg PO BID 10/11/22 10/11/22 Unknown History Exam Airway Mallampati Class: III TM Dist: <=3cm Neck ROM: Full Denture: Upper Partial: Lower Loose/Missing/Broken Teeth: Yes, Upper and Lower Heart: OK. See above. Lungs: OK. See above. Assessment and Plan Assessment Anesthesia Assessment: Anesthesia Plan Discussed Final Anesthetic Review Family History of Problems with Anesthesia: No History of Problems with Anesthesia: No NPO: Yes ASA Class: V Final Preanesthetic Review: No Changes in Pt Med Stat, Meds/Allgs Chart Reviewed, Consent Obtained/Reviewed and Anes Risks/Benef Reviewed Patient Risk: High Procedure Risk: Intermediate Anesthetic Plan Anesthetic Plan: MAC: and Agree w/ Assess. and Plan Disposition: Standard PACU
[2022-10-25] VITALS (16 sets, daily range): BP systolic 122–165; BP diastolic 45–72; PULSE 66–70; RESP 12–20; TEMP 36.1–36.5; O2SAT 92–99; BMI 40.2
[2022-10-25 11:59] LABS: Glucose, Whole Blood 252 mg/dL (60-115)
[2022-10-25 12:07] LABS: Anion Gap 15 (12-20); Blood Urea Nitrogen 28 mg/dL (9-16); Calcium 9.7 mg/dL (8.4-10.2); Carbon Dioxide 29 mmol/L (22-29); Chloride 101 mmol/L (96-108); Creatinine Clr Calc Pharmacy 35.8; Estimated Glomerular Filt Rate 28; Glucose Fasting 249 mg/dL (60-99); Potassium 4.1 mmol/L (3.3-5.1); Sodium 141 mmol/L (135-145)
[2022-10-25] MEDS: Lactated Ringers 1,000 ML 20 ML IVCONT (12:09)
--- NOTE | 2022-10-25 16:04 | PC.NURSE ---
Spoke to Dr. Gurrola who stated to watch for bleeding. Dr. Gurrola stated to lay patient flat x 1 hour followed by HOB at 30 degrees x 4 hours. The patient was provided education about the instructions with daughter at bedside.
--- NOTE | 2022-10-27 16:37 | P.OP_ITS ---
Operative Note Operative Note Date of Service: 10/25/22 Narrative: Procedure: ?CardioMEMS implantation. Surgeon: ?Jaiden Gurrola MD Anesthesia: MAC Indication: CHF Patient was seen and examined before the procedure and informed consent was signed. In the room, time-out was performed for proper patient identification.? After sedation with the help of anesthesia, the patient was draped in a usual fashion.? We gave lidocaine subcutaneously in the right femoral area and using micropuncture technique we placed the 4 Serbian sheath into the right common femoral vein.? We advanced 0.035 J tipped wire and advanced a 7 Serbian dilator.? After dilation we preclosed using a Perclose ProGlide.? The wire was advanced through the ProGlide and 11 Serbian sheath was placed in the common femoral vein. We advanced a 7 Serbian Hessel-Shreya catheter and measures pressures in right atrium, right ventricle and left pulmonary artery.? The wedge the catheter and recorded the pulmonary capillary wedge pressure.? Right heart catheterization findings: BP 169/62, HR 67/min. RA 16, RV 60/14, PA 61/33 (mean 42), PCWP 30. After this we performed a pulmonary angiogram and selected the appropriate branch to wire into.? Using an 0.018 wire we wired into branch of pulmonary artery on the left side and walk the Hessel-Shreya catheter.? Over the 018 wire we advanced the CardioMEMS delivery catheter.? Once we were at the appropriate confirmed by fluoroscopy and anatomical landmarks, the CardioMEMS device was r eleased.? We gently backed the delivery catheter and the 018 wire.? Over the 0.018 wire we then advanced the Hessel Shreya catheter again and measured pulmonary artery pressure.? We calibrated the device.? At this stage the Hessel-Shreya catheter was removed.? The sheath was removed and Perclose sutures were tied and gentle pressure was held for few minutes to achieve hemostasis. Complications:? None.
== END 2022-10-25 19:29 | disposition home or self-care (01) ==
PROVIDERS: PCP Internal Medicine; Visit Provider Internal Medicine Cardiovascular Disease
DX: I13.0 Hypertensive heart and chronic kidney disease with heart failure and stage 1 through stage 4 chronic kidney disease, or unspecified chronic kidney disease (principal); I50.32 Chronic diastolic (congestive) heart failure; I25.10 Atherosclerotic heart disease of native coronary artery without angina pectoris; Z95.5 Presence of coronary angioplasty implant and graft; N18.4 Chronic kidney disease, stage 4 (severe); E11.22 Type 2 diabetes mellitus with diabetic chronic kidney disease; G47.33 Obstructive sleep apnea (adult) (pediatric); G81.91 Hemiplegia, unspecified affecting right dominant side; J45.909 Unspecified asthma, uncomplicated; E73.9 Lactose intolerance, unspecified; Z86.73 Personal history of transient ischemic attack (TIA), and cerebral infarction without residual deficits; Z79.4 Long term (current) use of insulin; Z79.01 Long term (current) use of anticoagulants; Z79.899 Other long term (current) drug therapy; Z79.890 Hormone replacement therapy; Z88.8 Allergy status to other drugs, medicaments and biological substances
CPT/HCPCS: 33289; 36415; 76937; 80048; 82947; C1760; C1769; C1887; C1894; C2624; J2250; J3010; Q9967

== ENCOUNTER → 2022-11-28 23:59 | Outpatient (BNV) | payer OTHER, SELFPAY ==
--- NOTE | 2022-12-08 13:01 | A.OFFVIS_ITS ---
Intake Intake Visit Reasons: Cardiomems- [facility] Allergies lactose Allergy (Intermediate, Verified 10/11/22 13:57) Vomiting amlodipine Allergy (Mild, Verified 10/11/22 13:57) leg edema liraglutide [From VICTOZA] Allergy (Mild, Verified 10/11/22 13:57) VOMITING RUBI PFSH Medical History (Updated 10/11/22 @ 15:11 by Shara Grimes MD) Arthritis Asthma CAD (coronary artery disease) Cerebrovascular accident (CVA) due to occlusion of left middle cerebral artery CKD (chronic kidney disease) CKD (chronic kidney disease) stage 4, GFR 15-29 ml/min Diabetes Gout Hypercholesteremia Hypertension Lumbar degenerative disc disease BRYNN (obstructive sleep apnea) Restrictive lung disease Right hemiparesis Sinusitis Skin lesion Stroke Surgical History H/O colonoscopy H/O right breast biopsy History of bilateral tubal ligation History of cataract surgery History of coronary angioplasty with insertion of stent History of esophagogastroduodenoscopy (EGD) History of heart surgery Family History Father Stroke Mother Myocardial infarction Paternal Uncle Cancer Social History Household Members: Family Housing: House Are you a primary animal care giver to a significant other at home: No Alcohol intake: never Patient Tobacco Use Status: Never used Tobacco e-Cigarette/Vaping Use: Never Used Second Hand Smoke Exposure: No Advance Directives Date on File: 01/25/22 service: No Current occupational status: unemployed and disabled Sexual orientation: Straight/Heterosexual Gender identity: Female Cognitive needs: Yes Hearing needs: No Vision needs: No Office Procedures Cardiac Device Check Cardiac Device Check Details: Monitoring period dates: - 11/28/22 Optimal PA pressure range:PA mean goal set at 26mmgh Procedure code: 78252 BACKGROUND: Anna is implanted with the CardioMEMS PA Sensor.? I use this technology to monitor PA pressures on a weekly basis to ensure patients are within their optimal range to prevent decompensation.? SUMMARY:? I utilized the remote monitoring platform ([employer]) to set optimal targets for pulmonary artery pressure thresholds as part of acute and chronic management of patient?s heart failure. During the period indicated above, I monitored the patient?s pulmonary artery pressures weekly via trend analysis and notification reports which provide alerts when patient?s PA pressures were outside of range to prompt immediate action in medication changes and communications.? The weekly reports are archived in the [employer] system which serve as a parallel record to document weekly PA pressures, medication changes, and clinical notes. I have reviewed readings on 11/09, 11/15, 11/19, 11/23. Initially her home monitoring device not working properly. LOREN has ranged 28- 44mmhg. No HF admits. Diuretics adjusted accordingly. 94601 - Remote monitoring of wireless pulmonary artery pressure sensor Procedure code (CPT) selection complete Assessment & Plan Assessment & Plan Medications: Discontinued ferrous sulfate 325 mg PO BID 60 tabs 3RF Quality Reporting (2019) Adult ([facility] 138/06/22/68) Smoking risk assessment performed?: Yes Patient Tobacco Use Status: Never used Tobacco Coding Level of Care Code Procedure Only Diagnoses CPT Codes Cardiac Device Check - Cardiac Device 17: 54623 - Remote monitoring of wireless pulmonary artery pressure sensor ([id number])
== END ==
PROVIDERS: PCP Internal Medicine; Visit Provider Internal Medicine Cardiovascular Disease
DX: I50.32 Chronic diastolic (congestive) heart failure (principal)
CPT/HCPCS: 93264

== ENCOUNTER 2022-12-16 16:08 | Outpatient (REF) | payer OTHER, SELFPAY ==
[2022-12-16 16:38] LABS: MANUAL DIFF FLAG NO
[2022-12-16 16:59] LABS: Basophils Percent Auto 0.5 % (0-2); Eosinophils Absolute Auto 0.2 X10*3/uL (0.0-0.4); Eosinophils Percent Auto 2.5 % (0-4); Hematocrit 40.4 % (37.0-47.0); Hemoglobin 12.9 g/dl (12.0-16.0); Imm Gran Abs Auto 0.01 X10*3/uL (0.00-0.03); Imm Gran Pct Auto 0.1 % (0.0-0.4); Lymphocytes Absolute Auto 2.5 X10*3/uL (1.2-4.9); Lymphocytes Percent Auto 33.2 % (20-40); Mean Corpuscular HGB Conc 31.9 g/dl (31.0-35.0); Mean Corpuscular Hemoglobin 28.9 pg (27.0-33.0); Mean Corpuscular Volume 90.4 fL (80.0-98.0); Monocytes Absolute Auto 0.8 X10*3/uL (0.1-1.2); Monocytes Percent Auto 10.1 % (2-11); Neutrophils Absolute Auto 4.1 x10*3/uL (2.0-8.3); Neutrophils Percent Auto 53.6 % (45-73); Platelet Count 208 X10*3/uL (160-400); Red Blood Count 4.47 X10*6/uL (4.20-5.50); Red Cell Distribution Width 14.9 % (11.0-16.0); White Blood Count 7.6 X10*3/uL (4.8-10.8)
[2022-12-16 17:05] LABS: Alanine Aminotransferase 23 U/L (0-31); Albumin Level 3.9 g/dL (3.5-5.0); Alkaline Phosphatase 52 U/L (39-117); Anion Gap 11 (12-20); Aspartate Amino Transferase 23 U/L (5-31); Bilirubin Total 0.4 mg/dL (0.0-1.0); Blood Urea Nitrogen 28 mg/dL (9-16); Calcium 10.1 mg/dL (8.4-10.2); Carbon Dioxide 35 mmol/L (22-29); Chloride 97 mmol/L (96-108); Estimated Glomerular Filt Rate 28; Glucose Fasting 186 mg/dL (60-99); Glucose Random 187 mg/dL (60-115); Iron 56 mcg/dL (30-160); Percent Iron Saturation 22 % (15-50); Potassium 3.5 mmol/L (3.3-5.1); Sodium 139 mmol/L (135-145); Total Iron Binding Capacity 251 mcg/dL (228-428); Total Protein 8.3 g/dL (6.5-8.0); Unsaturated Iron Binding 195 ug/dL
[2022-12-16 17:07] LABS: INTERNATIONAL NORM RATIO 1.3 (0.9-1.1)
[2022-12-16 17:27] LABS: Vitamin D 25-OH Total 41.5 ng/mL (>30)
[2022-12-16 17:41] LABS: Folate 16.5 ng/mL (> or = 4.0); Vitamin B12 722 pg/mL (200-900)
[2022-12-16 19:00] LABS: Creatinine Urine 103.22 mg/dL; Microalbum/Creatinine Ratio Ur 479.5 ug/mg cr
[2022-12-16 21:07] LABS: B Type Natriuretic Peptide 124 pg/mL (<100)
[2022-12-21 16:39] LABS: NT-proBNP 775 pg/mL (<125)
== END 2022-12-16 16:09 | disposition home or self-care (01) ==
LOC: HO.LAB 16:08
PROVIDERS: Nurse Practitioner Family; PCP Internal Medicine; Visit Provider Nurse Practitioner
DX: E11.9 Type 2 diabetes mellitus without complications (principal); I50.32 Chronic diastolic (congestive) heart failure; N18.30 Chronic kidney disease, stage 3 unspecified; D64.9 Anemia, unspecified; E53.8 Deficiency of other specified B group vitamins; I48.0 Paroxysmal atrial fibrillation; E55.9 Vitamin D deficiency, unspecified
CPT/HCPCS: 36415; 80048; 80053; 82043; 82306; 82607; 82746; 83540; 83880; 85025; 85610

== ENCOUNTER 2022-12-20 11:21 | Outpatient (AMB) | payer OTHER, SELFPAY ==
--- NOTE | 2022-12-20 11:36 | A.OFFVIS_ITS ---
Intake Vital Signs 12/20/22 11:37 Height 5 ft 2 in Weight 220 lb 7.396 oz BMI 40.3 BP 140/64 H Blood Pressure Location Lt brachial Position Sitting Pulse 68 Intake Visit Reasons: overdue follow-up with [facility] check Intake Note: Overdue follow-up feeling good District Sales Coordinator Required: Yes District Sales Coordinator Name: daughter signed Home Health Billing Specialist: Home Health Billing Specialist Present Accompanied by: Daughter Allergies lactose Allergy (Intermediate, Verified 10/11/22 13:57) Vomiting amlodipine Allergy (Mild, Verified 10/11/22 13:57) leg edema liraglutide [From VICTOZA] Allergy (Mild, Verified 10/11/22 13:57) VOMITING RUBI Medication List - Last Reconciled 12/20/22 by Brandon Horton MD amitriptyline 25 mg PO BEDTIME apixaban (Eliquis) 5 mg PO BID 90 days ascorbic acid (vitamin C) (Vitamin C With Allie Hips) 500 mg PO DAILY 90 days blood sugar diagnostic As directed cholecalciferol (vitamin D3) 50 mcg PO DAILY 90 days clopidogrel (Plavix) 75 mg PO DAILY commode As directed dapagliflozin propanediol (Farxiga) 10 mg PO DAILY ferrous sulfate 325 mg PO DAILY 90 days furosemide 40 mg PO BID gabapentin 300 mg PO BID hydralazine 25 mg PO BID insulin regular hum U-500 conc 0 - 450 units subcut DAILY PRN lactulose 10 grams (15 mL) PO BEDTIME PRN 30 days metoprolol tartrate 50 mg (2 x 25 mg) PO BID 90 days [pulse oximeter As directed] rosuvastatin 40 mg PO DAILY 90 days sennosides (Senna Laxative) 17.2 mg (2 x 8.6 mg) PO BEDTIME PRN 30 days Shower Chair As directed walker with seat and wheels HPI HPI Comments History of Present Illness Details Anna comes for follow-up, accompanied by her daughter who will act as resource conservation specialist. Declined a certified resource conservation specialist. Patient since CardioMEMS device has been managing her fluid status with help of the office. She does send daily monitoring. She has remained stable and follows instructions. As result as been no hospitalization the last 3 months. Continues to have shortness of breath but no worsening. No orthopnea, PND. Occasional leg edema. Denies any lightheadedness, syncope. No irregular heartbeat or rapid heart rate. No chest pain. Takes all her medications regularly. Most recent creatinine is stable at 1.85. Follows with Nephrology on a regular basis. Blood pressure at home as per the daughter is well optimized. FORMERLY [facility] Medical History Arthritis Asthma CAD (coronary artery disease) Cerebrovascular accident (CVA) due to occlusion of left middle cerebral artery CKD (chronic kidney disease) CKD (chronic kidney disease) stage 4, GFR 15-29 ml/min Diabetes Gout Hypercholesteremia Hypertension Lumbar degenerative disc disease BRYNN (obstructive sleep apnea) Restrictive lung disease Right hemiparesis Sinusitis Skin lesion Stroke Surgical History H/O colonoscopy H/O right breast biopsy History of bilateral tubal ligation History of cataract surgery History of coronary angioplasty with insertion of stent History of esophagogastroduodenoscopy (EGD) History of heart surgery Family History Father Stroke Mother Myocardial infarction Paternal Uncle Cancer Social History Household Members: Family Housing: House Are you a primary child care provider to a significant other at home: No Alcohol intake: never Patient Tobacco Use Status: Never used Tobacco e-Cigarette/Vaping Use: Never Used Second Hand Smoke Exposure: No Advance Directives Date on File: 01/25/22 service: No Current occupational status: unemployed and disabled Sexual orientation: Straight/Heterosexual Gender identity: Female Cognitive needs: Yes Hearing needs: No Vision needs: No Review of Systems Const Denies chills, Denies fatigue, Denies fever(s), Denies frequent falls, Denies weakness, Denies weight gain and Denies weight loss ENT Denies dizziness Card Denies chest pain, Denies leg edema, Denies lightheadedness, Denies palpitations, Denies dyspnea, Denies dyspnea on exertion, Denies orthopnea and Denies other (loss of consciousness) Resp Denies cough, Denies dyspnea and Denies dyspnea on exertion GI Denies hematochezia and Denies change in stool character Musc Denies abnormal gait, Denies muscle weakness, Denies numbness, Denies radiating pain into limb and Denies tingling Neuro Denies abnormal gait, Denies dizziness, Denies frequent falls, Denies numbness, Denies tingling and Denies weakness Endo Denies fatigue and Denies palpitations Physical Exam Vital Signs: Last Vital Signs Pulse 68 12/20/22 11:37 BP 140/64 H 12/20/22 11:37 BMI result Body Mass Index 40.3 Const General: cooperative, comfortable, no acute distress, alert and awake Nutritional Appearance: obese Orientation/consciousness: patient oriented x3 Limitations: ambulation with walker Neck Neck: Yes trachea midline, Yes supple and Yes no JVD Resp Effort & Inspection: normal respiratory effort Auscultation: clear to auscultation bilaterally Cardio Jugular venous distension: no JVD Palpation: normal PMI Rate: regular rate Rhythm: regular rhythm Heart sounds: S1 normal heart sound present and S2 normal heart sound present Skin General skin exam: no rashes or lesions noted Neuro General: patient oriented x3 and no focal motor deficits Extrem General: No clubbing, No cyanosis and No edema Assessment & Plan Assessment & Plan (1) Chronic heart failure with preserved ejection fraction (HFpEF): Code(s): I50.32 - Chronic diastolic (congestive) heart failure Plan: Heart failure preserved ejection fraction with grade 2 diastolic dysfunction most likely due to hypertensive heart disease. Clinically has done well since placement of CardioMEMS device with no hospitalization and stable symptoms. Diuretic management as per the readings are CardioMEMS on a daily basis. Avoidance of salt loading was discussed. Importance of medical therapy and follow-up in compliance with CardioMEMS was discussed. Continue aggressive blood pressure control which is currently well optimized. She has multiple comorbidities including poor functional status, obesity, paroxysmal atrial fibrillation, chronic kidney disease. Recommend to continue to pursue CPAP t herapy. Advised to monitor blood pressure at home maintain a log. Will continue pursue rhythm control approach as much as possible. Regular follow-up with Nephrology also recommended. (2) Paroxysmal atrial fibrillation: Code(s): I48.0 - Paroxysmal atrial fibrillation Plan: Paroxysmal atrial fibrillation appears to have remained suppressed and in sinus rhythm. Has done well with rhythm control approach will continue pursue rhythm control approach. No recurrent episodes of bradycardia and or syncope. Monitoring post hospitalization within normal limits. Continue rhythm control approach, however does not require antiarrhythmic drug therapy. Continue full oral anticoagulation high risk of stroke. Currently on Eliquis 5 mg b.i.d.. Will follow up in 3 months time, sooner p.r.n.. Thank you for allowing me to partake in her care Medications: Discontinued ferrous sulfate 325 mg PO BID 60 tabs 3RF Quality Reporting (2019) Adult ([facility] ) Smoking risk assessment performed?: Yes Patient Tobacco Use Status: Never used Tobacco Coding Level of Care Code Est Pt Level 4 (43193) Diagnoses Chronic heart failure with preserved ejection fraction (HFpEF) I50.32 Paroxysmal atrial fibrillation I48.0
[2022-12-20 11:37] VITALS: BP 140/64; PULSE 68; BMI 40.3
== END 2022-12-20 12:00 | disposition home or self-care (01) ==
PROVIDERS: PCP Internal Medicine; Referring Provider Internal Medicine; Visit Provider Internal Medicine Cardiovascular Disease
DX: I50.32 Chronic diastolic (congestive) heart failure (principal); I48.0 Paroxysmal atrial fibrillation
CPT/HCPCS: 99214

== ENCOUNTER → 2022-12-20 11:21 | Outpatient (BNVA) | payer OTHER, SELFPAY | PROVIDERS: PCP Internal Medicine; Referring Provider Internal Medicine; Visit Provider Internal Medicine Cardiovascular Disease | DX: I50.32 Chronic diastolic (congestive) heart failure (principal); I48.0 Paroxysmal atrial fibrillation | CPT/HCPCS: 99212 ==

== ENCOUNTER → 2022-12-29 23:59 | Outpatient (BNV) | payer OTHER, SELFPAY ==
--- NOTE | 2023-01-10 18:27 | MHC.OFFVIS ---
Intake Intake Visit Reasons: Remote CardioMEMS- [facility] Allergies lactose Allergy (Intermediate, Verified 01/04/23 14:38) Vomiting amlodipine Allergy (Mild, Verified 01/04/23 14:38) leg edema liraglutide [From VICTOZA] Allergy (Mild, Verified 01/04/23 14:38) VOMITING RUBI PFSH Medical History Arthritis Asthma CAD (coronary artery disease) Cerebrovascular accident (CVA) due to occlusion of left middle cerebral artery CKD (chronic kidney disease) CKD (chronic kidney disease) stage 4, GFR 15-29 ml/min Diabetes Gout Hypercholesteremia Hypertension Lumbar degenerative disc disease BRYNN (obstructive sleep apnea) Restrictive lung disease Right hemiparesis Sinusitis Skin lesion Stroke Surgical History H/O colonoscopy H/O right breast biopsy History of bilateral tubal ligation History of cataract surgery History of coronary angioplasty with insertion of stent History of esophagogastroduodenoscopy (EGD) History of heart surgery Family History Father Stroke Mother Myocardial infarction Paternal Uncle Cancer Social History (Reviewed 01/04/23 @ 14:24 by Krystal Rey [facility]) Household Members: Family Housing: House Are you a primary primary care sales representative to a significant other at home: No Alcohol intake: never Patient Tobacco Use Status: Never used Tobacco e-Cigarette/Vaping Use: Never Used Second Hand Smoke Exposure: No Advance Directives Date on File: 01/25/22 service: No Current occupational status: unemployed and disabled Sexual orientation: Straight/Heterosexual Gender identity: Female Cognitive needs: Yes Hearing needs: No Vision needs: No Office Procedures Cardiac Device Check Cardiac Device Check Details: Monitoring period dates:11/29/22 - 12/29/22 Optimal PA pressure range: LOREN goal 26mmhg - adjusted to 30mmhg Procedure code: 44323 BACKGROUND: Anna is implanted with the CardioMEMS PA Sensor.? I use this technology to monitor PA pressures on a weekly basis to ensure patients are within their optimal range to prevent decompensation.? SUMMARY:? I utilized the remote monitoring platform ([employer]) to set optimal targets for pulmonary artery pressure thresholds as part of acute and chronic management of patient?s heart failure. During the period indicated above, I monitored the patient?s pulmonary artery pressures weekly via trend analysis and notification reports which provide alerts when patient?s PA pressures were outside of range to prompt immediate action in medication changes and communications.? The weekly reports are archived in the [employer] system which serve as a parallel record to document weekly PA pressures, medication changes, and clinical notes. I have reviewed readings on 11/29, 12/04, 12/11, 12/18, 12/23, 12/27. LOREN has ranged 29-43mmhg. Her diuretics have been adjusted as needed. 66905 - Remote monitoring of wireless pulmonary artery pressure sensor Procedure code (CPT) selection complete Quality Reporting (2019) Adult ([facility] 138/06/22/68) Smoking risk assessment performed?: Yes Patient Tobacco Use Status: Never used Tobacco Coding Level of Care Code Procedure Only CPT Codes Cardiac Device Check - Cardiac Device 17: 11620 - Remote monitoring of wireless pulmonary artery pressure sensor ([id number])
== END ==
PROVIDERS: PCP Internal Medicine; Visit Provider Nurse Practitioner Family
DX: I50.32 Chronic diastolic (congestive) heart failure (principal)
CPT/HCPCS: 93264

== ENCOUNTER 2023-01-04 13:36 | Outpatient (AMB) | payer OTHER, SELFPAY ==
--- NOTE | 2023-01-04 14:18 | MHC.OFFVIS ---
Intake Vital Signs 01/04/23 14:19 Height 5 ft 2 in Weight 229 lb BMI 41.9 BP 122/50 L Blood Pressure Location Lt brachial Position Sitting Pulse 66 Pulse Source Pulse Oximeter Pulse Oximetry (%) 95 Oxygen Delivery Method Room Air Intake Visit Reasons: Obstructive sleep apnea Intake Note: pt is here for follow up BRYNN and is doing well, she does get short of breath but she is retaining fluid. She does need a refill on albuterol to have for rescue when astham is acting up. Allergies lactose Allergy (Intermediate, Verified 01/04/23 14:38) Vomiting amlodipine Allergy (Mild, Verified 01/04/23 14:38) leg edema liraglutide [From VICTOZA] Allergy (Mild, Verified 01/04/23 14:38) VOMITING RUBI Medication List - Last Reconciled 01/04/23 by Real Slade MD albuterol sulfate 90 mcg/actuation 2 puffs inhalation Q6H PRN amitriptyline 25 mg PO BEDTIME apixaban (Eliquis) 5 mg PO BID 90 days ascorbic acid (vitamin C) (Vitamin C With Allie Hips) 500 mg PO DAILY 90 days blood sugar diagnostic As directed cholecalciferol (vitamin D3) 50 mcg PO DAILY 90 days clopidogrel (Plavix) 75 mg PO DAILY commode As directed dapagliflozin propanediol (Farxiga) 10 mg PO DAILY ferrous sulfate 325 mg PO DAILY 90 days furosemide 40 mg PO BID gabapentin 300 mg PO BID hydralazine 25 mg PO BID insulin regular hum U-500 conc 0 - 450 units subcut DAILY PRN lactulose 10 grams (15 mL) PO BEDTIME PRN 30 days metoprolol tartrate 50 mg (2 x 25 mg) PO BID 90 days [pulse oximeter As directed] rosuvastatin 40 mg PO DAILY 90 days sennosides (Senna Laxative) 17.2 mg (2 x 8.6 mg) PO BEDTIME PRN 30 days Shower Chair As directed walker with seat and wheels Do you need a note to return to daycare/school/sports/work: No HPI Obstructive sleep apnea HPI Details 62 YEARS OLD FEMALE COMES AFTER 4 MONTHS FOR FOLLOW-UP FOR HER SLEEP APNEA. SHE HAS A MILD DEGREE OF ASTHMA/COPD, AND HAS TO USE ALBUTEROL INHALER ONLY ONCE IN A WHILE. DENIES. ANY EXCESSIVE COUGH OR SHORTNESS OF BREATH SHE IS A KNOWN CASE OF OBSTRUCTIVE SLEEP APNEA AND HAS BEEN PROVIDED WITH THE CPAP DEVICE. CLAIMS THAT SHE IS USING IT EVERY NIGHT HOWEVER HER COMPLIANT REPORT SHOWS , THAT SHE MISSES ON FREQUENT NIGHTS. WHEN SHE DOES USE SHE USES ONLY FOR A FEW HOURS AND THEN POLES OF THE MASK. SHE CLAIMS THAT SHE SLEEPS OKAY EVEN WITHOUT THE MASK. SHE DENIES ANY DAYTIME SLEEPINESS. FAR WEIGHT IS CONCERNED SHE HAS NOT MADE ANY PROGRESS. SHE HAS VERY POOR UNDERSTANDING OF HER PROBLEM OF OBESITY. SHE SAY IS THAT SHE IS OBESE BECAUSE SHE RETAINS FLUID. FORMERLY [facility] Medical History Arthritis Asthma CAD (coronary artery disease) Cerebrovascular accident (CVA) due to occlusion of left middle cerebral artery CKD (chronic kidney disease) CKD (chronic kidney disease) stage 4, GFR 15-29 ml/min Diabetes Gout Hypercholesteremia Hypertension Lumbar degenerative disc disease BRYNN (obstructive sleep apnea) Restrictive lung disease Right hemiparesis Sinusitis Skin lesion Stroke Surgical History H/O colonoscopy H/O right breast biopsy History of bilateral tubal ligation History of cataract surgery History of coronary angioplasty with insertion of stent History of esophagogastroduodenoscopy (EGD) History of heart surgery Family History Father Stroke Mother Myocardial infarction Paternal Uncle Cancer Social History Household Members: Family Housing: House Are you a primary inpatient care manager rn to a significant other at home: No Alcohol intake: never Patient Tobacco Use Status: Never used Tobacco e-Cigarette/Vaping Use: Never Used Second Hand Smoke Exposure: No Advance Directives Date on File: 01/25/22 service: No Current occupational status: unemployed and disabled Sexual orientation: Straight/Heterosexual Gender identity: Female Cognitive needs: Yes Hearing needs: No Vision needs: No Review of Systems Const All systems reviewed & are unremarkable except as noted in HPI and below Eyes Reports no additional complaints ENT Reports nasal congestion (MILD OFF AND ON) Card Denies chest pain, Reports irregular heart rhythm (PAROXYSMAL ATRIAL FIB) and Denies leg edema Resp Reports as per HPI GI Reports no additional complaints Reports no additional complaints Musc Reports abnormal gait (UNSTABLE ON FEET, USES WALKER FOR STABILITY), Reports back pain and Reports myalgias Skin/Breast Reports system reviewed and no additional complaints, except as documented Neuro Reports abnormal gait (UNSTABLE ON FEET, USES WALKER FOR STABILITY) Psych Reports no additional complaints Endo Reports other (DIABETES MELLITUS) Physical Exam Vital Signs: Last Vital Signs Pulse 66 01/04/23 14:19 BP 122/50 L 01/04/23 14:19 Pulse Ox 95 01/04/23 14:19 Oxygen Delivery Method Room Air 01/04/23 14:19 BMI result Body Mass Index 41.9 Const General: comfortable, no acute distress, alert and awake Orientation/consciousness: patient oriented x3 HEENT Head: Yes normal to inspection General nose exam: No nasal polyps present and No nasal discharge present Face and sinus: Yes sinuses nontender Mouth: oropharynx normal Throat: Yes posterior oropharynx normal Eyes General: appearance normal, both eyes and all related structures Neck Neck: Yes normal visual inspection, Yes no lymphadenopathy, Yes trachea midline and Yes no JVD Thyroid: Thyroid normal Chest Chest palpation & inspection: normal inspection of the chest, normal palpation of entire chest wall and no tenderness Resp Other: PERCUSSION NOTE IS BARELY PERCEPTIBLE BECAUSE OF THICK CHEST WALL. BREATH SOUNDS ARE DISTANT BUT EQUAL ON BOTH SIDES. NO WHEEZES CREPITATIONS OR RHONCHI ARE HEARD. Cardio Palpation: normal PMI Rate: regular rate Rhythm: regular rhythm Heart sounds: no gallops and no murmurs GI Palpation (GI): Soft to palpation, nontender, No hepatosplenomegaly present, no masses and Other GI palpation findings present (ABDOMEN MODERATELY OBESE AND PROTUBERANT) Auscultation: normal bowel sounds Back/Spine/Pelvis Thoracic/Lumbar Spine: thoracic and lumbar spine normal to inspection and thoraco-lumbar ROM limited Skin General skin exam: dry skin Neuro General: patient oriented x3 and No no focal motor deficits (WEAKNESS OF LOWER EXTREMITIES) Cranial nerves: Yes CN's II-XII intact bilaterally Extrem General: Yes normal to inspection, Yes no clubbing, cyanosis or edema and Yes no calf tenderness Psych Appearance: grossly normal and well kempt Speech and movement: Normal speech and movement present Results Reviewed Results Reviewed: COMPLIANCE REPORT FOR THE LAST 30 NIGHTS IS REVIEWED. SHE HAS USED 21/30 NIGHTS, 70%. AVERAGE USE PER NIGHT IS ONLY 3 HOURS 48 MINUTES. PRESSURE 7 CM. THERE IS SIGNIFICANT AIR LEAK REPORTED. RESIDUAL AHI 11.1 Assessment & Plan Assessment & Plan (1) BRYNN on CPAP: Comment: LONGSTANDING HISTORY OF OBSTRUCTIVE SLEEP APNEA. SHE DOES HAVE THE NEW CPAP DEVICE. THE COMPLIANCE REPORT SHOWS THAT SHE IS USING ONLY ABOUT 3 HOURS PER NIGHT. TALKED TO THE PATIENT AND HIS DAUGHTER WHO CAME WITH HER, THAT SHE NEEDS TO USE CPAP EVERY NIGHT. SHE NEEDS TO USE THE CPAP AT LEAST FOR 4 HOURS EVERY NIGHT, SHE NEEDS TO TIGHTEN THE STRAPS . PATIENT PROMISES THAT SHE WILL TRY HER BEST, WILL RECHECK HER IN 2 MONTHS TO MAKE SURE THAT SHE IS MORE COMPLIANT. Code(s): G47.33 - Obstructive sleep apnea (adult) (pediatric); Z99.89 - Dependence on other enabling machines and devices (2) Restrictive lung disease: Comment: KNOWN TO HAVE RESTRICTIVE LUNG DISEASE SINCE THE HER PULMONARY FUNCTION TEST IN 2012. CLINICALLY I AM SURE SHE DOES HAVE MODERATE DEGREE OF RESTRICTION, THIS IS SECONDARY TO MORBID OBESITY. SHE ALSO SEEM TO HAVE MILD DEGREE OF ASTHMA/REACTIVE AIRWAYS. IT IS OKAY TO USE ALBUTEROL INHALER P.R.N.. Code(s): J98.4 - Other disorders of lung Medications: New albuterol sulfate 90 mcg/actuation 2 puffs inhalation Q6H PRN 8.5 grams 3RF shortness of breath or wheezing 30 days Discontinued ferrous sulfate 325 mg PO BID 60 tabs 3RF Quality Reporting (2019) Adult ([facility] 138/06/22/68) Smoking risk assessment performed?: Yes Patient Tobacco Use Status: Never used Tobacco Coding Level of Care Code Est Pt Level 3 (62963) Diagnoses BRYNN on CPAP G47.33; Z99.89 Restrictive lung disease J98.4
[2023-01-04 14:19] VITALS: BP 122/50; PULSE 66; O2SAT 95; BMI 41.9
== END 2023-01-04 14:45 | disposition home or self-care (01) ==
PROVIDERS: PCP Internal Medicine; Visit Provider Internal Medicine
DX: G47.33 Obstructive sleep apnea (adult) (pediatric) (principal); Z99.89 Dependence on other enabling machines and devices; J98.4 Other disorders of lung
CPT/HCPCS: 99213

== ENCOUNTER → 2023-01-04 13:36 | Outpatient (BNVA) | payer OTHER, SELFPAY | PROVIDERS: PCP Internal Medicine; Visit Provider Internal Medicine | DX: G47.33 Obstructive sleep apnea (adult) (pediatric) (principal); J98.4 Other disorders of lung; Z99.89 Dependence on other enabling machines and devices | CPT/HCPCS: 99212 ==

== ENCOUNTER 2023-01-30 13:08 | Outpatient (REF) | payer OTHER, SELFPAY ==
--- NOTE | ~2023-01-30 | XR_ITS ---
EXAMINATION: XR LUMBOSACRAL SPINE CLINICAL INFORMATION: Low back pain COMPARISON: None available. TECHNIQUE: Three views of the lumbosacral spine. FINDINGS: Bone alignment is normal. No fracture or dislocation. Mild degenerative spondylosis and degenerative disc disease at L3-L4. Lower lumbar spine facet arthritis. Atherosclerotic disease. XR/XR lumbar spine 2-3V IMPRESSION: Degenerative changes.
--- NOTE | ~2023-01-30 | US_ITS ---
EXAMINATION: ANKLE-BRACHIAL INDICES SINGLE LEVEL PULSE VOLUME RECORDING ARTERIAL DUPLEX BILATERAL LEGS ARTERIAL DUPLEX ABDOMINAL AORTA CLINICAL INFORMATION: Peripheral vascular disease. COMPARISON: 07/25/2022 TECHNIQUE: Ankle-brachial indices and PVR at the ankle were obtained. Duplex Doppler of the bilateral lower extremity arterial systems was performed. Duplex Doppler of the aortoiliac segments was performed. FINDINGS: Abdominal aorta: Proximal: PSV 120 cm/s. AP diameter 1.7 cm. Multiphasic waveform. Mid: PSV 83 cm/s. AP diameter 1.4 cm. Multiphasic waveform. Distal: Not visible due to bowel gas. RIGHT: Ankle-brachial index: The DP and PT were an audible therefore ankle-brachial indices could not be obtained. PVR: Moderately abnormal Common iliac: PSV 147 cm/s. Biphasic waveform. External iliac: PSV 206 cm/s. Triphasic waveform. Common femoral: PSV 229 cm/s. Triphasic waveform. Deep femoral: PSV 251 cm/s. Triphasic waveform. Proximal superficial femoral: PSV 193 cm/s. Monophasic waveform. Mid superficial femoral: PSV 127 cm/s. Monophasic waveform. Distal superficial femoral: PSV 154 cm/s. Monophasic waveform. Popliteal: PSV 136 cm/s. Monophasic waveform. Posterior tibial: Appears occluded Peroneal: Appears occluded. Anterior tibial: PSV 77 cm/s. Monophasic waveform. Dorsalis pedis: PSV 56 cm/s. Monophasic waveform. LEFT: Ankle-brachial index: The DP and PT were an audible therefore ankle-brachial indices could not be obtained. PVR: Mildly abnormal Common iliac: Not seen due to bowel gas. External iliac: PSV 189 cm/s. Monophasic waveform. Common femoral: PSV 233 cm/s. Triphase waveform. Deep femoral: PSV 391 cm/s. Biphasic waveform. Proximal superficial femoral: PSV 307 cm/s. Monophasic waveform. Mid superficial femoral: PSV 107 cm/s. Monophasic waveform. Distal superficial femoral: PSV 185 cm/s. Monophasic waveform. Popliteal: PSV 94 cm/s. Monophasic waveform. Posterior tibial: PSV 30 cm/s. Monophasic waveform. Peroneal: PSV 28 cm/s. Monophasic waveform. Anterior tibial: PSV 43 cm/s. Monophasic waveform. Dorsalis pedis: PSV 39 cm/s. Monophasic waveform. Intermittent ectopic beats/arrhythmia demonstrated. US/US abdominal aortic aneurysm IMPRESSION: Ankle-brachial indices could not be obtained due to an audible DP and PT bilaterally. No evidence of aortic aneurysm or significant aortic level inflow disease. Right lower extremity: No evidence of hemodynamically significant iliac level inflow disease. Significant femoropopliteal and tibial level disease. Left lower extremity: Possible significant iliac level inflow disease. Significant femoropopliteal and tibial level disease.
== END 2023-01-30 13:09 | disposition home or self-care (01) ==
LOC: HO.US 13:08
PROVIDERS: PCP Internal Medicine; Visit Provider Surgery Vascular Surgery
DX: M54.50 Low back pain, unspecified (principal); I73.9 Peripheral vascular disease, unspecified
CPT/HCPCS: 72100; 76706; 93923; 93925

== ENCOUNTER → 2023-02-03 23:59 | Outpatient (BNV) | payer OTHER, SELFPAY ==
--- NOTE | 2023-02-14 08:56 | MHC.OFFVIS ---
Intake Intake Visit Reasons: Remote CardioMEMS Check- [facility] Allergies lactose Allergy (Intermediate, Verified 01/31/23 13:05) Vomiting amlodipine Allergy (Mild, Verified 01/31/23 13:05) leg edema liraglutide [From VICTOZA] Allergy (Mild, Verified 01/31/23 13:05) VOMITING RUBI PFSH Medical History Arthritis Asthma CAD (coronary artery disease) Cerebrovascular accident (CVA) due to occlusion of left middle cerebral artery CKD (chronic kidney disease) CKD (chronic kidney disease) stage 4, GFR 15-29 ml/min Diabetes Gout Hypercholesteremia Hypertension Lumbar degenerative disc disease BRYNN (obstructive sleep apnea) Restrictive lung disease Right hemiparesis Sinusitis Skin lesion Stroke Surgical History H/O colonoscopy H/O right breast biopsy History of bilateral tubal ligation History of cataract surgery History of coronary angioplasty with insertion of stent History of esophagogastroduodenoscopy (EGD) History of heart surgery Family History Father Stroke Mother Myocardial infarction Paternal Uncle Cancer Social History Household Members: Family Housing: House Are you a primary nurse behavioral health care to a significant other at home: No Alcohol intake: never Patient Tobacco Use Status: Never used Tobacco e-Cigarette/Vaping Use: Never Used Second Hand Smoke Exposure: No Advance Directives Date on File: 01/25/22 service: No Current occupational status: unemployed and disabled Sexual orientation: Straight/Heterosexual Gender identity: Female Cognitive needs: Yes Hearing needs: No Vision needs: No Office Procedures Cardiac Device Check Cardiac Device Check Details: Monitoring period dates: 12/30/22 - Optimal PA pressure range: LOREN goal 30 mmhg Procedure code: 18554 BACKGROUND: Anna is implanted with the CardioMEMS PA Sensor.? I use this technology to monitor PA pressures on a weekly basis to ensure patients are within their optimal range to prevent decompensation.? SUMMARY:? I utilized the remote monitoring platform ([id number]) to set optimal targets for pulmonary artery pressure thresholds as part of acute and chronic management of patient?s heart failure. During the period indicated above, I monitored the patient?s pulmonary artery pressures weekly via trend analysis and notification reports which provide alerts when patient?s PA pressures were outside of range to prompt immediate action in medication changes and communications.? The weekly reports are archived in the [id number] system which serve as a parallel record to document weekly PA pressures, medication changes, and clinical notes. I have reviewed readings on 01/02, 01/09, 01/15, 01/22, 01/25. LOREN ranged 28-43 mmhg. Medication adjustments made as needed. No HF admissions. Denies symptoms, even when readings elevated. 25880 - Remote monitoring of wireless pulmonary artery pressure sensor Procedure code (CPT) selection complete Quality Reporting (2019) Adult ([facility] ) Smoking risk assessment performed?: Yes Patient Tobacco Use Status: Never used Tobacco Coding Level of Care Code Procedure Only CPT Codes Cardiac Device Check - Cardiac Device 17: 46166 - Remote monitoring of wireless pulmonary artery pressure sensor ([id number])
== END ==
PROVIDERS: PCP Internal Medicine; Visit Provider Nurse Practitioner Family
DX: I50.9 Heart failure, unspecified (principal); Z95.818 Presence of other cardiac implants and grafts
CPT/HCPCS: 93264

== ENCOUNTER 2023-02-16 13:46 | Outpatient (AMB) | payer OTHER, SELFPAY ==
--- NOTE | 2023-02-16 13:57 | MHC.OFFVIS ---
Intake Vital Signs 02/16/23 13:59 Height 5 ft 2 in Weight 229 lb BMI 41.9 Intake Visit Reasons: 6 months aterial us fu Intake Note: pt here for 6 months arterial US on 01/30/23 pt states that her legs feel ok today and that are feeling the same since last visit no new changes to report Right Of Way Buyer Required: Yes Right Of Way Buyer Name: camilo calderon Accompanied by: Daughter Allergies lactose Allergy (Intermediate, Verified 02/16/23 14:00) Vomiting amlodipine Allergy (Mild, Verified 02/16/23 14:00) leg edema liraglutide [From VICTOZA] Allergy (Mild, Verified 02/16/23 14:00) VOMITING RUBI HPI 6 months aterial us fu HPI Details Very pleasant 62-year-old female presents for follow-up regarding arterial disease. She had endovascular intervention back in January. She appears to be doing relatively well. She is walking but requires the use of walker for balance. She can walk about a block at most. She now presents for routine arterial surveillance. [facility] Medical History Restrictive lung disease CKD (chronic kidney disease) stage 4, GFR 15-29 ml/min Right hemiparesis Cerebrovascular accident (CVA) due to occlusion of left middle cerebral artery Skin lesion Lumbar degenerative disc disease Gout CKD (chronic kidney disease) BRYNN (obstructive sleep apnea) Arthritis Hypercholesteremia CAD (coronary artery disease) Sinusitis Stroke Asthma Hypertension Diabetes Surgical History History of esophagogastroduodenoscopy (EGD) H/O colonoscopy History of bilateral tubal ligation History of heart surgery History of coronary angioplasty with insertion of stent History of cataract surgery H/O right breast biopsy Family History Father Stroke Mother Myocardial infarction Paternal Uncle Cancer Social History Household Members: Family Housing: House Are you a primary child care aide to a significant other at home: No Alcohol intake: never Patient Tobacco Use Status: Never used Tobacco e-Cigarette/Vaping Use: Never Used Second Hand Smoke Exposure: No Advance Directives Date on File: 01/25/22 service: No Current occupational status: unemployed and disabled Sexual orientation: Straight/Heterosexual Gender identity: Female Cognitive needs: Yes Hearing needs: No Vision needs: No Review of Systems Const All systems reviewed & are unremarkable except as noted in HPI and below Reports no additional complaints ENT Reports Normal hearing present Card Denies chest pain, Denies chest pain at rest, Denies chest pain with activity and Denies pedal edema Resp Denies cough GI Denies abdominal pain Musc Denies abnormal gait, Denies muscle cramps and Denies radiating pain into limb Skin/Breast Denies skin ulcer and Denies wounds Neuro Reports Normal hearing present and Denies abnormal gait Psych Reports no additional complaints Physical Exam Vital Signs: BMI result Body Mass Index 41.9 Const General: cooperative, healthy appearing and comfortable Orientation/consciousness: oriented to person, oriented to place and oriented to time HEENT Head: Yes normal to inspection Neck Neck: Yes normal visual inspection Carotids: no bruits Chest Chest palpation & inspection: normal inspection of the chest Resp Effort & Inspection: normal respiratory effort and able to speak in complete sentences Auscultation: clear to auscultation bilaterally, no crackles, no rales, no rhonchi and no wheezes Cardio Other: Bilateral DP signal Rate: regular rate Rhythm: regular rhythm Heart sounds: S1 normal heart sound present and S2 normal heart sound present Bruits: no carotid bruits Peripheral pulses: Peripheral pulses 2+ throughout GI Inspection: Yes normal to inspection Skin Wounds: no wounds Hair: normal Neuro General: oriented to person, oriented to place and oriented to time Cranial nerves: Yes CN's II-XII intact bilaterally and Yes Normal hearing present Cognition (Neuro): normal cognition Motor exam (neuro): 5/5 motor strength present throughout Extrem Other: venous exam: No significant superficial varicosities or spider telangiectasias, minimal edema General: No clubbing, No cyanosis and No edema Psych Appearance: grossly normal Mental Status: mental status grossly normal Speech and movement: Normal speech and movement present Results Reviewed Results Reviewed: Arterial tested dating 01/30/2023 demonstrates triphasic waveform up to level the thigh and then it goes down to monophasic waveforms. Written report and images were reviewed. Assessment & Plan Assessment & Plan (1) PVD (peripheral vascular disease): Comment: 02/17/2022 - right SFA atherectomy and plasty. Code(s): I73.9 - Peripheral vascular disease, unspecified Plan: Patient appears to be stable from a peripheral vascular standpoint. Appears to be doing relatively the same. At the current time would like to manage this conservatively. I did bring her back for shorter interval follow-up in approximately 6 months with noninvasive arterial testing. We did discuss risk factor modification and the importance of ambulation. Thank you for allowing us to assist in her care. If there are any questions or concerns please do not hesitate to contact us Orders: Orders US arterial duplex LE BI 6 Months I73.9 - Peripheral vascular disease, unspecified Quality Reporting (2019) Adult ([facility] 138/06/22/68) Smoking risk assessment performed?: Yes Patient Tobacco Use Status: Never used Tobacco Coding Level of Care Code Est Pt Level 4 (38984) Diagnoses PVD (peripheral vascular disease) I73.9
[2023-02-16 13:59] VITALS: BMI 41.9
== END 2023-02-16 14:21 | disposition home or self-care (01) ==
PROVIDERS: PCP Internal Medicine; Visit Provider Surgery Vascular Surgery
DX: I73.9 Peripheral vascular disease, unspecified (principal); Z98.62 Peripheral vascular angioplasty status
CPT/HCPCS: 99213

== ENCOUNTER → 2023-02-16 13:46 | Outpatient (BNVA) | payer OTHER, SELFPAY | PROVIDERS: PCP Internal Medicine; Visit Provider Surgery Vascular Surgery | DX: I73.9 Peripheral vascular disease, unspecified (principal) | CPT/HCPCS: 99212 ==

== ENCOUNTER → 2023-03-06 23:59 | Outpatient (BNV) | payer OTHER, SELFPAY ==
--- NOTE | 2023-03-31 15:40 | A.OFFVIS_ITS ---
Intake Intake Visit Reasons: Remote CardioMEMS Check- [facility] Allergies lactose Allergy (Intermediate, Verified 03/13/23 13:52) Vomiting amlodipine Allergy (Mild, Verified 03/13/23 13:52) leg edema liraglutide [From VICTOZA] Allergy (Mild, Verified 03/13/23 13:52) VOMITING RUBI PFSH Medical History Restrictive lung disease CKD (chronic kidney disease) stage 4, GFR 15-29 ml/min Right hemiparesis Cerebrovascular accident (CVA) due to occlusion of left middle cerebral artery Skin lesion Lumbar degenerative disc disease Gout CKD (chronic kidney disease) BRYNN (obstructive sleep apnea) Arthritis Hypercholesteremia CAD (coronary artery disease) Sinusitis Stroke Asthma Hypertension Diabetes Surgical History History of esophagogastroduodenoscopy (EGD) H/O colonoscopy History of bilateral tubal ligation History of heart surgery History of coronary angioplasty with insertion of stent History of cataract surgery H/O right breast biopsy Family History Father Stroke Mother Myocardial infarction Paternal Uncle Cancer Social History Household Members: Family Housing: House Are you a primary health care legal assistant to a significant other at home: No Alcohol intake: never Comment: family at bedside Patient Tobacco Use Status: Never used Tobacco e-Cigarette/Vaping Use: Never Used Second Hand Smoke Exposure: No Advance Directives Date on File: 01/25/22 service: No Current occupational status: unemployed and disabled Sexual orientation: Straight/Heterosexual Gender identity: Female Cognitive needs: Yes Hearing needs: No Vision needs: No Office Procedures Cardiac Device Check Cardiac Device Check Details: Monitoring period dates:01/29/23 - 02/28/23 Optimal PA pressure range: LOREN goal 30 mmhg Procedure code: 62299 BACKGROUND: Anna is implanted with the CardioMEMS PA Sensor.? I use this technology to monitor PA pressures on a weekly basis to ensure patients are within their optimal range to prevent decompensation.? SUMMARY:? I utilized the remote monitoring platform (ESILLAGE) to set optimal targets for pulmonary artery pressure thresholds as part of acute and chronic management of patient?s heart failure. During the period indicated above, I monitored the patient?s pulmonary artery pressures weekly via trend analysis and notification reports which provide alerts when patient?s PA pressures were outside of range to prompt immediate action in medication changes and communications.? The weekly reports are archived in the ESILLAGE system which serve as a parallel record to document weekly PA pressures, medication changes, and clinical notes. I have reviewed readings on02/03, 02/10, 02/14, 02/21, 02/27. LOREN has ranged 28-39mmhg. Diuretics adjusted as warranted. 90669 - Remote monitoring of wireless pulmonary artery pressure sensor Procedure code (CPT) selection complete Assessment & Plan Assessment & Plan (1) Presence of CardioMEMS HF system: Code(s): Z95.818 - Presence of other cardiac implants and grafts Plan: monthly report - january Quality Reporting (2019) Adult ([facility] 138/06/22/68) Smoking risk assessment performed?: Yes Patient Tobacco Use Status: Never used Tobacco Coding Level of Care Code Procedure Only Diagnoses Presence of CardioMEMS HF system Z95.818 CPT Codes Cardiac Device Check - Cardiac Device 17: 95037 - Remote monitoring of wireless pulmonary artery pressure sensor ([id number])
== END ==
PROVIDERS: PCP Internal Medicine; Visit Provider Nurse Practitioner Family
DX: I50.32 Chronic diastolic (congestive) heart failure (principal); Z95.818 Presence of other cardiac implants and grafts
CPT/HCPCS: 93264

== ENCOUNTER 2023-03-13 13:40 | Outpatient (AMB) | payer OTHER, SELFPAY ==
--- NOTE | 2023-03-13 13:52 | HO.NEPHOV ---
HPI HPI Comments History of Present Illness Details 62-year-old woman with a history of longstanding hypertension diabetes mellitus and obesity with CKD. She was accompanied by her daughter.Denies any new complaints. No urinary symptoms. She recently had an episode of gout and she completed a short course of colchicine. [facility], [facility] Medical History Restrictive lung disease CKD (chronic kidney disease) stage 4, GFR 15-29 ml/min Right hemiparesis Cerebrovascular accident (CVA) due to occlusion of left middle cerebral artery Skin lesion Lumbar degenerative disc disease Gout CKD (chronic kidney disease) BRYNN (obstructive sleep apnea) Arthritis Hypercholesteremia CAD (coronary artery disease) Sinusitis Stroke Asthma Hypertension Diabetes Surgical History History of esophagogastroduodenoscopy (EGD) H/O colonoscopy History of bilateral tubal ligation History of heart surgery History of coronary angioplasty with insertion of stent History of cataract surgery H/O right breast biopsy Family History Father Stroke Mother Myocardial infarction Paternal Uncle Cancer Social History Household Members: Family Housing: House Are you a primary health care coach to a significant other at home: No Alcohol intake: never Patient Tobacco Use Status: Never used Tobacco e-Cigarette/Vaping Use: Never Used Second Hand Smoke Exposure: No Advance Directives Date on File: 01/25/22 service: No Current occupational status: unemployed and disabled Sexual orientation: Straight/Heterosexual Gender identity: Female Cognitive needs: Yes Hearing needs: No Vision needs: No Vital Signs 03/13/23 13:57 Height 5 ft 2 in Weight 223 lb BMI 40.8 BP 142/60 H Blood Pressure Location Rt brachial Position Sitting Pulse 65 Pulse Source Pulse Oximeter Pulse Oximetry (%) 97 Oxygen Delivery Method Room Air Physical Exam Vital Signs: Last Vital Signs Pulse 65 03/13/23 13:57 BP 142/60 H 03/13/23 13:57 Pulse Ox 97 03/13/23 13:57 Oxygen Delivery Method Room Air 03/13/23 13:57 BMI result Body Mass Index 40.8 Const General: comfortable Nutritional Appearance: well nourished Orientation/consciousness: patient oriented x3 HEENT Head: No normal to inspection Mouth: moist mucous membranes Neck Neck: Yes supple and Yes no JVD Resp Auscultation: clear to auscultation bilaterally, no rales and rub present Cardio Jugular venous distension: no JVD Palpation: no palpable S3 and no palpable S4 Heart sounds: no rubs GI Palpation (GI): Soft to palpation and nontender Percussion: No Fluid wave present General: Yes no CVA tenderness Back/Spine/Pelvis Back: no CVA tenderness Skin General skin exam: no rashes or lesions noted Neuro General: patient oriented x3 Extrem General: Yes no pedal edema and No clubbing Results Reviewed Results Reviewed: All results were reviewed Assessment & Plan Assessment & Plan (1) CKD (chronic kidney disease) stage 3, GFR 30-59 ml/min: Code(s): N18.30 - Chronic kidney disease, stage 3 unspecified Plan: Chronic kidney disease in the setting of longstanding hypertension obesity and diabetes mellitus. Renal function stable. Patient creatinine is around 1.8 mg/dL. Goal is to slow the progression of disease. Continue to avoid nephrotoxic agents. We discussed importance of tight control of blood pressure and blood sugar. She will benefit from weight loss as well. Continue Farxiga for renal protection (2) Type 2 diabetes mellitus, with long-term current use of insulin: Code(s): E11.9 - Type 2 diabetes mellitus without complications; Z79.4 - snf (current) use of insulin Plan: Goal A1c less than 7% She follows with Endocrinology Dr. 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 No absolute indication for Epogen yet. I will monitor hemoglobin and initiate therapy as indicated. Orders: Orders Blood Urea Nitrogen Today D64.9 - Anemia, unspecified, E11.9 - Type 2 diabetes mellitus without complications, N18.30 - Chronic kidney disease, stage 3 unspecified, Z79.4 - terminal superintendent (current) use of insulin Creatinine Today D64.9 - Anemia, unspecified, E11.9 - Type 2 diabetes mellitus without complications, N18.30 - Chronic kidney disease, stage 3 unspecified, Z79.4 - terminal superintendent (current) use of insulin PTHI Today D64.9 - Anemia, unspecified, E11.9 - Type 2 diabetes mellitus without complications, N18.30 - Chronic kidney disease, stage 3 unspecified, Z79.4 - terminal superintendent (current) use of insulin Complete Blood Count no Diff Today D64.9 - Anemia, unspecified, E11.9 - Type 2 diabetes mellitus without complications, N18.30 - Chronic kidney disease, stage 3 unspecified, Z79.4 - terminal superintendent (current) use of insulin Electrolytes Today D64.9 - Anemia, unspecified, E11.9 - Type 2 diabetes mellitus without complications, N18.30 - Chronic kidney disease, stage 3 unspecified, Z79.4 - snf (current) use of insulin Calcium Today D64.9 - Anemia, unspecified, E11.9 - Type 2 diabetes mellitus without complications, N18.30 - Chronic kidney disease, stage 3 unspecified, Z79.4 - terminal superintendent (current) use of insulin Uric Acid Today D64.9 - Anemia, unspecified, E11.9 - Type 2 diabetes mellitus without complications, N18.30 - Chronic kidney disease, stage 3 unspecified, Z79.4 - terminal superintendent (current) use of insulin Coding Level of Care Code Est Pt Level 4 (28863) Diagnoses CKD (chronic kidney disease) stage 3, GFR 30-59 ml/min N18.30 Type 2 diabetes mellitus, with long-term current use of insulin E11.9; Z79.4 Anemia D64.9
[2023-03-13 13:57] VITALS: BP 142/60; PULSE 65; O2SAT 97; BMI 40.8
== END 2023-03-13 14:11 | disposition home or self-care (01) ==
PROVIDERS: PCP Internal Medicine; Referring Provider Internal Medicine; Visit Provider Internal Medicine Hypertension Specialist
DX: E11.22 Type 2 diabetes mellitus with diabetic chronic kidney disease (principal); N18.30 Chronic kidney disease, stage 3 unspecified; Z79.4 Long term (current) use of insulin; D63.1 Anemia in chronic kidney disease
CPT/HCPCS: 99214

== ENCOUNTER → 2023-03-13 13:40 | Outpatient (BNVA) | payer OTHER, SELFPAY | PROVIDERS: PCP Internal Medicine; Referring Provider Internal Medicine; Visit Provider Internal Medicine Hypertension Specialist | DX: E11.22 Type 2 diabetes mellitus with diabetic chronic kidney disease (principal); I12.9 Hypertensive chronic kidney disease with stage 1 through stage 4 chronic kidney disease, or unspecified chronic kidney disease; N18.30 Chronic kidney disease, stage 3 unspecified; E66.9 Obesity, unspecified; D64.9 Anemia, unspecified; Z79.4 Long term (current) use of insulin | CPT/HCPCS: 99212 ==

== ENCOUNTER 2023-04-03 10:14 | Outpatient (REF) | payer OTHER, SELFPAY ==
[2023-04-03 12:33] LABS: Uric Acid 8.9 mg/dL (2.4-5.7)
[2023-04-04 19:58] LABS: CRP High Sensitivity >10.0 mg/L
== END 2023-04-03 10:15 | disposition home or self-care (01) ==
LOC: HO.LAB 10:14
PROVIDERS: PCP Internal Medicine; Visit Provider Internal Medicine Cardiovascular Disease
DX: M10.9 Gout, unspecified (principal); I50.32 Chronic diastolic (congestive) heart failure; I25.10 Atherosclerotic heart disease of native coronary artery without angina pectoris; I48.0 Paroxysmal atrial fibrillation
CPT/HCPCS: 36415; 84550; 86141; 99212

== ENCOUNTER 2023-04-03 10:14 | Outpatient (AMB) | payer OTHER, SELFPAY ==
[2023-04-03 10:22] VITALS: BP 120/68; PULSE 66; BMI 40.7
--- NOTE | 2023-04-03 10:22 | MHC.OFFVIS ---
Intake Vital Signs 04/03/23 10:22 Height 5 ft 2 in Weight 222 lb 10.67 oz BMI 40.7 BP 120/68 Blood Pressure Location Rt brachial Position Sitting Pulse 66 Intake Visit Reasons: 3 month f/u Intake Note: 3 month follow-up with [facility] check feeling good Boiling Tub Operator Required: Yes Shearer Screen Measurer And Trimmer: Shearer Screen Measurer And Trimmer Present Accompanied by: Daughter Allergies lactose Allergy (Intermediate, Verified 03/13/23 13:52) Vomiting amlodipine Allergy (Mild, Verified 03/13/23 13:52) leg edema liraglutide [From VICTOZA] Allergy (Mild, Verified 03/13/23 13:52) VOMITING RUBI Medication List - Last Reconciled 04/03/23 by Brandon Horton MD albuterol sulfate 90 mcg/actuation 2 puffs inhalation Q6H PRN 30 days amitriptyline 25 mg PO BEDTIME apixaban (Eliquis) 5 mg PO BID 90 days ascorbic acid (vitamin C) (Vitamin C With Allie Hips) 500 mg PO DAILY 90 days blood sugar diagnostic As directed cholecalciferol (vitamin D3) 50 mcg PO DAILY 90 days clopidogrel (Plavix) 75 mg PO DAILY commode As directed dapagliflozin propanediol (Farxiga) 10 mg PO DAILY ferrous sulfate 325 mg PO DAILY 90 days furosemide 40 mg PO BID gabapentin 300 mg PO BID hydralazine 25 mg PO BID insulin regular hum U-500 conc 0 - 450 units subcut DAILY PRN lactulose 10 grams (15 mL) PO BEDTIME PRN 30 days metoprolol tartrate 50 mg (2 x 25 mg) PO BID 90 days [pulse oximeter As directed] rosuvastatin 40 mg PO DAILY 90 days sennosides (Senna Laxative) 17.2 mg (2 x 8.6 mg) PO BEDTIME PRN 30 days Shower Chair As directed walker with seat and wheels HPI HPI Comments History of Present Illness Details Anna comes for follow-up, accompanied by her daughter who exercise analytics developer. Declined a certified analytics developer. Patient has had no hospitalization related to heart failure. She remains limited with exercise capacity. Her creatinine is remained stable. We have been following a CardioMEMS on a regular basis and maintaining a diuretic regimen. She using CPAP. No prolonged palpitations irregular heartbeat. Unfortunately she is been suffering from diffuse joint pains and as per the daughter she has gout although due to limitations and multiple medical problems her therapy recall options happen limited. However as per the daughter she has responded well to colchicine therapy in the past. [facility] Medical History Restrictive lung disease CKD (chronic kidney disease) stage 4, GFR 15-29 ml/min Right hemiparesis Cerebrovascular accident (CVA) due to occlusion of left middle cerebral artery Skin lesion Lumbar degenerative disc disease Gout CKD (chronic kidney disease) BRYNN (obstructive sleep apnea) Arthritis Hypercholesteremia CAD (coronary artery disease) Sinusitis Stroke Asthma Hypertension Diabetes Surgical History History of esophagogastroduodenoscopy (EGD) H/O colonoscopy History of bilateral tubal ligation History of heart surgery History of coronary angioplasty with insertion of stent History of cataract surgery H/O right breast biopsy Family History Father Stroke Mother Myocardial infarction Paternal Uncle Cancer Social History Household Members: Family Housing: House Are you a primary caretaker resort to a significant other at home: No Alcohol intake: never Comment: family at bedside Patient Tobacco Use Status: Never used Tobacco e-Cigarette/Vaping Use: Never Used Second Hand Smoke Exposure: No Advance Directives Date on File: 01/25/22 service: No Current occupational status: unemployed and disabled Sexual orientation: Straight/Heterosexual Gender identity: Female Cognitive needs: Yes Hearing needs: No Vision needs: No Review of Systems Const Denies chills, Denies fatigue, Denies fever(s), Denies frequent falls, Denies weakness, Denies weight gain and Denies weight loss ENT Denies dizziness Card Denies chest pain, Denies leg edema, Denies lightheadedness, Denies palpitations, Denies dyspnea, Denies dyspnea on exertion, Denies orthopnea and Denies other (loss of consciousness) Resp Denies cough, Denies dyspnea and Denies dyspnea on exertion GI Denies hematochezia and Denies change in stool character Musc Denies abnormal gait, Denies muscle weakness, Denies numbness, Denies radiating pain into limb and Denies tingling Neuro Denies abnormal gait, Denies dizziness, Denies frequent falls, Denies numbness, Denies tingling and Denies weakness Endo Denies fatigue and Denies palpitations Physical Exam Vital Signs: Last Vital Signs Pulse 66 04/03/23 10:22 BP 120/68 04/03/23 10:22 BMI result Body Mass Index 40.7 Const General: cooperative, comfortable, no acute distress, alert, awake and in distress mild and other (Due to pain) Nutritional Appearance: obese Orientation/consciousness: patient oriented x3 Limitations: wheelchair Neck Neck: Yes trachea midline, Yes supple and Yes no JVD Resp Effort & Inspection: normal respiratory effort Auscultation: clear to auscultation bilaterally Cardio Jugular venous distension: no JVD Palpation: normal PMI Rate: regular rate Rhythm: regular rhythm Heart sounds: S1 normal heart sound present and S2 normal heart sound present Skin General skin exam: no rashes or lesions noted Neuro General: patient oriented x3 and no focal motor deficits Extrem General: No clubbing, No cyanosis, No edema and Yes other (Swollen left metacarpal joint) Assessment & Plan Assessment & Plan (1) Chronic heart failure with preserved ejection fraction (HFpEF): Code(s): I50.32 - Chronic diastolic (congestive) heart failure Plan: Patient with heart failure preserved ejection fraction status post CardioMEMS device with no hospitalization with heart failure since then. Will continue monitor on a weekly basis and producing report on a monthly basis and provide her with diuretic guidance remotely. This was discussed with her. Management of heart failure was discussed continue current diuretic regimen. Daily weight monitoring avoidance of salt loading was discussed. 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 Will obtain uric acid as well as CRP. Given her advanced renal dysfunction, treatment options are limited although will give her colchicine as she is in lot of distress for 2 weeks. Advise rheumatology consultation. (2) CAD (coronary artery disease): Code(s): I25.10 - Atherosclerotic heart disease of [place] coronary artery without angina pectoris Plan: CAD status post coronary bypass grafting along with diffuse vascular disease and prior stroke. Clinically with no symptoms of angina. Continue aggressive risk factor modification. Continue aggressive management of diabetes goal hemoglobin A1c less than 7%, currently on insulin therapy as well. Blood pressure is optimized on current treatment. Continue the same. Continue high-intensity statin therapy with target goal LDL less than 70 mg/dL. Currently due to diffuse vascular disease also on Plavix therapy. (3) Paroxysmal atrial fibrillation: Code(s): I48.0 - Paroxysmal atrial fibrillation Plan: Paroxysmal atrial fibrillation which has remained suppressed. Continue metoprolol therapy. Currently on full oral anticoagulation Eliquis at 5 mg b.i.d.. Quarterly renal function test should be pursued. Continue pursue rhythm control approach. Follow up in the clinic in 6 months time after an echocardiogram. Thank you for allowing me to partake in her care Orders: Orders Uric Acid Today M10.9 - Gout, unspecified CRP High Sensitivity Today M10.9 - Gout, unspecified CA echo transthoracic complete 6 Months I50.32 - Chronic diastolic (congestive) heart failure Referrals Rheumatology Referral M10.9 - Gout, unspecified Medications: New colchicine 0.6 mg PO BID 30 tabs 0RF Quality Reporting (2019) Adult ([facility] 138/06/22/68) Smoking risk assessment performed?: Yes Patient Tobacco Use Status: Never used Tobacco Coding Level of Care Code Est Pt Level 4 (84465) Diagnoses Chronic heart failure with preserved ejection fraction (HFpEF) I50.32 CAD (coronary artery disease) I25.10 Paroxysmal atrial fibrillation I48.0
== END 2023-04-03 10:54 | disposition home or self-care (01) ==
PROVIDERS: PCP Internal Medicine; Visit Provider Internal Medicine Cardiovascular Disease
DX: I50.32 Chronic diastolic (congestive) heart failure (principal); I25.10 Atherosclerotic heart disease of native coronary artery without angina pectoris; I48.0 Paroxysmal atrial fibrillation
CPT/HCPCS: 99214

== ENCOUNTER → 2023-04-07 23:59 | Outpatient (BNV) | payer OTHER, SELFPAY ==
--- NOTE | 2023-04-17 12:25 | A.OFFVIS_ITS ---
Intake Intake Visit Reasons: Remote CardioMEMS- [facility] Allergies lactose Allergy (Intermediate, Verified 04/13/23 14:28) Vomiting amlodipine Allergy (Mild, Verified 04/13/23 14:28) leg edema liraglutide [From VICTOZA] Allergy (Mild, Verified 04/13/23 14:28) VOMITING RUBI PFSH Medical History Restrictive lung disease CKD (chronic kidney disease) stage 4, GFR 15-29 ml/min Right hemiparesis Cerebrovascular accident (CVA) due to occlusion of left middle cerebral artery Skin lesion Lumbar degenerative disc disease Gout CKD (chronic kidney disease) BRYNN (obstructive sleep apnea) Arthritis Hypercholesteremia CAD (coronary artery disease) Sinusitis Stroke Asthma Hypertension Diabetes Surgical History History of esophagogastroduodenoscopy (EGD) H/O colonoscopy History of bilateral tubal ligation History of heart surgery History of coronary angioplasty with insertion of stent History of cataract surgery H/O right breast biopsy Family History Father Stroke Mother Myocardial infarction Paternal Uncle Cancer Family/Other Breast cancer Social History Household Members: Family Housing: House Are you a primary care coordination manager to a significant other at home: No Alcohol intake: never Comment: family at bedside Patient Tobacco Use Status: Never used Tobacco e-Cigarette/Vaping Use: Never Used Second Hand Smoke Exposure: No Advance Directives Date on File: 01/25/22 service: No Current occupational status: unemployed and disabled Sexual orientation: Straight/Heterosexual Gender identity: Female Cognitive needs: Yes Hearing needs: No Vision needs: No Female Reproductive History Menstrual Age of Menarche: 14 Office Procedures Cardiac Device Check Cardiac Device Check Details: Monitoring period dates:03/01/23 - 04/01/23 Optimal PA pressure range: LOREN 30mmhg Procedure code: 36279 BACKGROUND: Anna is implanted with the CardioMEMS PA Sensor.? I use this technology to monitor PA pressures on a weekly basis to ensure patients are within their optimal range to prevent decompensation.? SUMMARY:? I utilized the remote monitoring platform (Fontself) to set optimal targets for pulmonary artery pressure thresholds as part of acute and chronic management of patient?s heart failure. During the period indicated above, I monitored the patient?s pulmonary artery pressures weekly via trend analysis and notification reports which provide alerts when patient?s PA pressures were outside of range to prompt immediate action in medication changes and communications.? The weekly reports are archived in the Fontself system which serve as a parallel record to document weekly PA pressures, medication changes, and clinical notes. I have reviewed readings on 03/02, 03/10, 03/16, 03/20, 03/26, 03/30. LOREN has ranged 27-35mmgh. 38283 - Remote monitoring of wireless pulmonary artery pressure sensor Procedure code (CPT) selection complete Assessment & Plan Assessment & Plan (1) Presence of CardioMEMS HF system: Code(s): Z95.818 - Presence of other cardiac implants and grafts Plan: monthly report Quality Reporting (2019) Adult ([facility] 138/06/22/68) Smoking risk assessment performed?: Yes Patient Tobacco Use Status: Never used Tobacco Coding Level of Care Code Procedure Only Diagnoses Presence of CardioMEMS HF system Z95.818 CPT Codes Cardiac Device Check - Cardiac Device 17: 34783 - Remote monitoring of wireless pulmonary artery pressure sensor ([id number])
== END ==
PROVIDERS: PCP Internal Medicine; Visit Provider Nurse Practitioner Family
DX: I50.32 Chronic diastolic (congestive) heart failure (principal); Z95.818 Presence of other cardiac implants and grafts
CPT/HCPCS: 93264

== ENCOUNTER 2023-04-13 13:52 | Outpatient (AMB) | payer OTHER, SELFPAY ==
[2023-04-13 14:20] VITALS: BP 110/48; BMI 41.0
--- NOTE | 2023-04-13 14:20 | A.OFFVIS_ITS ---
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 Mechanical Systems Designer Required: Yes Mechanical Systems Designer Language: Porcelain Technician Name: [id number] Information Interpreted: non-clinical & clinical Mental Tester: Mental Tester Present (Aidyn) Accompanied by: Daughter Allergies lactose Allergy (Intermediate, Verified 04/13/23 14:28) Vomiting amlodipine Allergy (Mild, Verified 04/13/23 14:28) leg edema liraglutide [From VICTOZA] Allergy (Mild, Verified 04/13/23 14:28) VOMITING RUBI Is last menstrual period known: No Post menopausal: Yes Patient : No HPI HPI Comments History of Present Illness Details Presenting for annual exam. No complaints. Last Pap/HPV was negative in 08/20 Last Mammogram was BI-RADS 2 in 12/20 [facility] Medical History Restrictive lung disease CKD (chronic kidney disease) stage 4, GFR 15-29 ml/min Right hemiparesis Cerebrovascular accident (CVA) due to occlusion of left middle cerebral artery Skin lesion Lumbar degenerative disc disease Gout CKD (chronic kidney disease) BRYNN (obstructive sleep apnea) Arthritis Hypercholesteremia CAD (coronary artery disease) Sinusitis Stroke Asthma Hypertension Diabetes Surgical History History of esophagogastroduodenoscopy (EGD) H/O colonoscopy History of bilateral tubal ligation History of heart surgery History of coronary angioplasty with insertion of stent History of cataract surgery H/O right breast biopsy Family History Father Stroke Mother Myocardial infarction Paternal Uncle Cancer Family/Other Breast cancer Social History Household Members: Family Housing: House Are you a primary critical care physician to a significant other at home: No Alcohol intake: never Comment: family at bedside Patient Tobacco Use Status: Never used Tobacco e-Cigarette/Vaping Use: Never Used Second Hand Smoke Exposure: No Advance Directives Date on File: 01/25/22 Patient : No service: No Current occupational status: unemployed and disabled Sexual orientation: Straight/Heterosexual Gender identity: Female Cognitive needs: Yes Hearing needs: No Vision needs: No Female Reproductive History Menstrual Age of Menarche: 14 control method: permanent sterilization Total pregnancies: 5 Full term: 5 Number of Living Children: 5 Date of last pap smear: 07/30/20 (negative) Date of Mammogram: 12/17/21 Date of last Bone Density Screenin12/17/21 Review of Systems Const All systems reviewed & are unremarkable except as noted in HPI and below Card Reports as per HPI Resp Reports as per HPI GI Reports as per HPI and Reports no additional complaints Reports as per HPI Physical Exam Vital Signs: Last Vital Signs BP 110/48 L 04/13/23 14:20 BMI result Body Mass Index 41.0 Const General: cooperative, healthy appearing and comfortable Chest Chest palpation & inspection: normal inspection of the chest and normal palpation of entire chest wall Breast/axilla inspection: normal inspection of the breasts and normal inspection of the axillae Breast/axilla palpation: normal palpation of the breasts, normal palpation of the axillae and no axillary lymphadenopathy Resp Effort & Inspection: normal respiratory effort Auscultation: clear to auscultation bilaterally Percussion: percussion normal Cardio Palpation: normal PMI Rate: regular rate Rhythm: regular rhythm Heart sounds: no murmurs and no rubs Peripheral pulses: Peripheral pulses 2+ throughout GI Inspection: Yes normal to inspection Palpation (GI): Soft to palpation, nontender, no guarding, not rigid and No hepatosplenomegaly present Percussion: Yes normal to percussion Auscultation: normal bowel sounds Rectal Exam - Female: deferred General: Yes bladder normal to palpation External Female Exam: No lesion Speculum Exam - Vagina: normal appearance of the vagina, normal palpation, normal vaginal discharge and not erythematous Speculum Exam - Cervix: normal appearance of the cervix and normal palpation Bimanual exam- vagina & uterus: normal bimanual exam, normal palpation, uterine size normal, bladder normal to palpation, consistency normal and normal palpation Bimanual Exam- Adnexa, other: normal adnexae, no masses and no tenderness Assessment & Plan Assessment & Plan (1) Well woman exam: Code(s): Z01.419 - Encounter for gynecological examination (general) (routine) without abnormal findings Plan: Co testing not indicated this year. Counseled the patient about the recommended dietary allowance of 1200 mg of Calcium & 600 IU of vitamin D. Mammogram ordered. The patient was instructed to perform monthly self-breast exams and schedule annual exam in a year. All questions answered and the patient verbalized understanding. Orders: Orders MM tomosynthesis screening BI Today Z12.31 - Encounter for screening mammogram for malignant neoplasm of breast Quality Reporting (2019) Adult ([facility] 138/06/22/68) Smoking risk assessment performed?: Yes Patient Tobacco Use Status: Never used Tobacco Coding Level of Care Code Est Pt Prev Care 40-64y(52534) Diagnoses Well woman exam Z01.419
== END 2023-04-13 14:47 | disposition home or self-care (01) ==
PROVIDERS: PCP Internal Medicine; Visit Provider Obstetrics & Gynecology
DX: Z01.419 Encounter for gynecological examination (general) (routine) without abnormal findings (principal)
CPT/HCPCS: 99396

== ENCOUNTER → 2023-04-13 13:52 | Outpatient (BNVA) | payer OTHER, SELFPAY | PROVIDERS: PCP Internal Medicine; Visit Provider Obstetrics & Gynecology | DX: Z01.419 Encounter for gynecological examination (general) (routine) without abnormal findings (principal) | CPT/HCPCS: 99396 ==

== ENCOUNTER → 2023-05-08 23:59 | Outpatient (BNV) | payer OTHER, SELFPAY ==
--- NOTE | 2023-05-16 18:20 | MHC.OFFVIS ---
Intake Intake Visit Reasons: Remote CardioMEMS- [facility] Allergies lactose Allergy (Intermediate, Verified 04/13/23 14:28) Vomiting amlodipine Allergy (Mild, Verified 04/13/23 14:28) leg edema liraglutide [From VICTOZA] Allergy (Mild, Verified 04/13/23 14:28) VOMITING RUBI PFSH Medical History Restrictive lung disease CKD (chronic kidney disease) stage 4, GFR 15-29 ml/min Right hemiparesis Cerebrovascular accident (CVA) due to occlusion of left middle cerebral artery Skin lesion Lumbar degenerative disc disease Gout CKD (chronic kidney disease) BRYNN (obstructive sleep apnea) Arthritis Hypercholesteremia CAD (coronary artery disease) Sinusitis Stroke Asthma Hypertension Diabetes Surgical History History of esophagogastroduodenoscopy (EGD) H/O colonoscopy History of bilateral tubal ligation History of heart surgery History of coronary angioplasty with insertion of stent History of cataract surgery H/O right breast biopsy Family History Father Stroke Mother Myocardial infarction Paternal Uncle Cancer Family/Other Breast cancer Social History Household Members: Family Housing: House Are you a primary pharmacy customer care specialist to a significant other at home: No Alcohol intake: never Comment: family at bedside Patient Tobacco Use Status: Never used Tobacco e-Cigarette/Vaping Use: Never Used Second Hand Smoke Exposure: No Advance Directives Date on File: 01/25/22 service: No Current occupational status: unemployed and disabled Sexual orientation: Straight/Heterosexual Gender identity: Female Cognitive needs: Yes Hearing needs: No Vision needs: No Female Reproductive History Menstrual Age of Menarche: 14 Office Procedures Cardiac Device Check Cardiac Device Check Details: Monitoring period dates: 03/31- 04/30/23 Optimal PA pressure range:LOREN goal 30mmhg Procedure code: 91429 BACKGROUND: Anna is implanted with the CardioMEMS PA Sensor.? I use this technology to monitor PA pressures on a weekly basis to ensure patients are within their optimal range to prevent decompensation.? SUMMARY:? I utilized the remote monitoring platform (Swirl) to set optimal targets for pulmonary artery pressure thresholds as part of acute and chronic management of patient?s heart failure. During the period indicated above, I monitored the patient?s pulmonary artery pressures weekly via trend analysis and notification reports which provide alerts when patient?s PA pressures were outside of range to prompt immediate action in medication changes and communications.? The weekly reports are archived in the Swirl system which serve as a parallel record to document weekly PA pressures, medication changes, and clinical notes. I have reviewed readings on 04/01, 04/07, 04/14, 04/19, 04/25, 04/28. Her LOREN numbers have ranged between 20-29mmhg. 94398 - Remote monitoring of wireless pulmonary artery pressure sensor Procedure code (CPT) selection complete Assessment & Plan Assessment & Plan (1) Presence of CardioMEMS HF system: Code(s): Z95.818 - Presence of other cardiac implants and grafts Plan: monthly report Quality Reporting (2019) Adult ([facility] 138/06/22/68) Smoking risk assessment performed?: Yes Patient Tobacco Use Status: Never used Tobacco Coding Level of Care Code Procedure Only Diagnoses Presence of CardioMEMS HF system Z95.818 CPT Codes Cardiac Device Check - Cardiac Device 17: 58876 - Remote monitoring of wireless pulmonary artery pressure sensor ([id number])
== END ==
PROVIDERS: PCP Internal Medicine; Visit Provider Nurse Practitioner Family
DX: I50.32 Chronic diastolic (congestive) heart failure (principal); Z95.818 Presence of other cardiac implants and grafts
CPT/HCPCS: 93264

== ENCOUNTER 2023-05-24 11:53 | Outpatient (REF) | payer OTHER, SELFPAY ==
--- NOTE | ~2023-05-24 | MM_ITS ---
EXAMINATION: MM SCREENING DIGITAL BREAST TOMOSYNTHESIS, BILATERAL CLINICAL INFORMATION: Screening. Asymptomatic. COMPARISON: Mammography: This study is compared with prior exams dating back to 2016. TECHNIQUE: Digital breast tomosynthesis is performed in both the craniocaudal and mediolateral oblique views along with computer-aided detection (CAD). Synthesized 2D images are generated from the tomosynthesis. FINDINGS: There are scattered areas of fibroglandular density (ACR BI-RADS breast composition Category b). There are no significant masses, abnormal calcifications, or other abnormalities. There is a tissue marker in the right breast from prior benign percutaneous biopsy. MM/MM tomosynthesis screening BI IMPRESSION: No mammographic evidence of malignancy. ASSESSMENT: BI-RADS BI-RADS 2 - Benign Findings RECOMMENDATION: Routine annual mammography screening. 1 year F/U This examination should not preclude the clinical evaluation of a suspicious palpable abnormality. This patient's information was entered into a reminder system with a target due date for their next mammogram.
== END 2023-05-24 11:54 | disposition home or self-care (01) ==
LOC: HO.MAMMO 11:53
PROVIDERS: PCP Internal Medicine; Visit Provider Obstetrics & Gynecology
DX: Z12.31 Encounter for screening mammogram for malignant neoplasm of breast (principal)
CPT/HCPCS: 77063; 77067; 99212

== ENCOUNTER → 2023-05-24 12:15 | Outpatient (BNV) | payer OTHER, SELFPAY | PROVIDERS: PCP Internal Medicine; Visit Provider Radiology Diagnostic Radiology | DX: Z12.31 Encounter for screening mammogram for malignant neoplasm of breast (principal) | CPT/HCPCS: 77063; 77067 ==

== ENCOUNTER 2023-05-24 14:39 | Outpatient (AMB) | payer OTHER, SELFPAY ==
[2023-05-24 15:20] VITALS: BP 124/64; PULSE 63; O2SAT 97; BMI 41.7
--- NOTE | 2023-05-24 15:20 | A.OFFVIS_ITS ---
Intake Vital Signs 05/24/23 15:20 Height 5 ft 2 in Weight 228 lb BMI 41.7 BP 124/64 Blood Pressure Location Rt brachial Position Sitting Pulse 63 Pulse Source Pulse Oximeter Pulse Oximetry (%) 97 Oxygen Delivery Method Room Air Intake Visit Reasons: kyra Intake Note: pt is here for follow up of KYRA, puts it on everynight but takes it off in her sleep. she states she does have a wheeze, put she does have heart failure and sometimes too much fluid retention. When walking long distance short of breath and fatigue Private Tutor Required: No Allergies lactose Allergy (Intermediate, Verified 05/24/23 15:50) Vomiting amlodipine Allergy (Mild, Verified 05/24/23 15:50) leg edema liraglutide [From VICTOZA] Allergy (Mild, Verified 05/24/23 15:50) VOMITING RUBI Medication List - Last Reconciled 05/24/23 by Real Slade MD albuterol sulfate 90 mcg/actuation 2 puffs inhalation Q6H PRN 30 days amitriptyline 25 mg PO BEDTIME apixaban (Eliquis) 5 mg PO BID 90 days ascorbic acid (vitamin C) (Vitamin C With Allie Hips) 500 mg PO DAILY 90 days blood sugar diagnostic As directed cholecalciferol (vitamin D3) 50 mcg PO DAILY 90 days clopidogrel (Plavix) 75 mg PO DAILY commode As directed dapagliflozin propanediol (Farxiga) 10 mg PO DAILY ferrous sulfate 325 mg PO DAILY 90 days furosemide 40 mg PO BID gabapentin 300 mg PO BID hydralazine 25 mg PO BID insulin regular hum U-500 conc 0 - 450 units subcut DAILY PRN lactulose 10 grams (15 mL) PO BEDTIME PRN 30 days metoprolol tartrate 50 mg (2 x 25 mg) PO BID 90 days [pulse oximeter As directed] rosuvastatin 40 mg PO DAILY 90 days sennosides (Senna Laxative) 17.2 mg (2 x 8.6 mg) PO BEDTIME PRN 30 days Shower Chair As directed walker with seat and wheels Do you need a note to return to daycare/school/sports/work: No HPI kyra HPI Details This 62 years old female is morbidly obese with diagnosis of obstructive sleep apnea. She is supposed to be using CPAP every night. According to her daughter, she puts the CPAP on when she goes to sleep but during the night pushes the mask off. So it is not clear how many hours per night she uses. The CPAP device is not transmitting the data for compliance. The patient does feel sleepy during the daytime and tend to take brief naps in the afternoon. She also has occasional wheezing, and uses albuterol p.r.n.. Her locomotion is quite limited and she walks around with the walker. [facility] Medical History Restrictive lung disease CKD (chronic kidney disease) stage 4, GFR 15-29 ml/min Right hemiparesis Cerebrovascular accident (CVA) due to occlusion of left middle cerebral artery Skin lesion Lumbar degenerative disc disease Gout CKD (chronic kidney disease) KYRA (obstructive sleep apnea) Arthritis Hypercholesteremia CAD (coronary artery disease) Sinusitis Stroke Asthma Hypertension Diabetes Surgical History History of esophagogastroduodenoscopy (EGD) H/O colonoscopy History of bilateral tubal ligation History of heart surgery History of coronary angioplasty with insertion of stent History of cataract surgery H/O right breast biopsy Family History Father Stroke Mother Myocardial infarction Paternal Uncle Cancer Family/Other Breast cancer Social History Household Members: Family Housing: House Are you a primary companion caregiver to a significant other at home: No Alcohol intake: never Comment: family at bedside Patient Tobacco Use Status: Never used Tobacco e-Cigarette/Vaping Use: Never Used Second Hand Smoke Exposure: No Advance Directives Date on File: 01/25/22 service: No Current occupational status: unemployed and disabled Sexual orientation: Straight/Heterosexual Gender identity: Female Cognitive needs: Yes Hearing needs: No Vision needs: No Female Reproductive History Menstrual Age of Menarche: 14 Review of Systems Const All systems reviewed & are unremarkable except as noted in HPI and below Eyes Reports no additional complaints ENT Reports nasal congestion (MILD OFF AND ON) Card Denies chest pain, Reports irregular heart rhythm (PAROXYSMAL ATRIAL FIB) and Denies leg edema Resp Reports as per HPI GI Reports no additional complaints Reports no additional complaints Musc Reports abnormal gait (UNSTABLE ON FEET, USES WALKER FOR STABILITY), Reports back pain and Reports myalgias Skin/Breast Reports system reviewed and no additional complaints, except as documented Neuro Reports abnormal gait (UNSTABLE ON FEET, USES WALKER FOR STABILITY) Psych Reports no additional complaints Endo Reports other (DIABETES MELLITUS) Physical Exam Vital Signs: Last Vital Signs Pulse 63 05/24/23 15:20 BP 124/64 05/24/23 15:20 Pulse Ox 97 05/24/23 15:20 Oxygen Delivery Method Room Air 05/24/23 15:20 BMI result Body Mass Index 41.7 Const General: comfortable, no acute distress, alert and awake Orientation/consciousness: patient oriented x3 HEENT Head: Yes normal to inspection General nose exam: No nasal polyps present and No nasal discharge present Face and sinus: Yes sinuses nontender Mouth: oropharynx normal Throat: Yes posterior oropharynx normal Eyes General: appearance normal, both eyes and all related structures Neck Neck: Yes normal visual inspection, Yes no lymphadenopathy, Yes trachea midline and Yes no JVD Thyroid: Thyroid normal Chest Chest palpation & inspection: normal inspection of the chest, normal palpation of entire chest wall and no tenderness Resp Other: PERCUSSION NOTE IS BARELY PERCEPTIBLE BECAUSE OF THICK CHEST WALL. BREATH SOUNDS ARE DISTANT BUT EQUAL ON BOTH SIDES. NO WHEEZES CREPITATIONS OR RHONCHI ARE HEARD. Cardio Palpation: normal PMI Rate: regular rate Rhythm: regular rhythm Heart sounds: no gallops and no murmurs GI Palpation (GI): Soft to palpation, nontender, No hepatosplenomegaly present, no masses and Other GI palpation findings present (ABDOMEN MODERATELY OBESE AND PROTUBERANT) Auscultation: normal bowel sounds Back/Spine/Pelvis Thoracic/Lumbar Spine: thoracic and lumbar spine normal to inspection and thoraco-lumbar ROM limited Skin General skin exam: dry skin Neuro General: patient oriented x3 and No no focal motor deficits (WEAKNESS OF LOWER EXTREMITIES) Cranial nerves: Yes CN's II-XII intact bilaterally Extrem General: Yes normal to inspection, Yes no clubbing, cyanosis or edema and Yes no calf tenderness Psych Appearance: grossly normal and well kempt Speech and movement: Normal speech and movement present Results Reviewed Results Reviewed: Compliance report is not available Assessment & Plan Assessment & Plan (1) Morbid obesity: Comment: SHE REMAINS GROSSLY OBESE. NOT IN ANY WEIGHT MANAGEMENT PROGRAM. COUNSELED THAT SHE NEEDS TO LOSE SOME WEIGHT, WHICH IS GOING TO BE DIFFICULT FOR HER BECAUSE SHE CANNOT WALK MUCH. SHE CLAIMS SHE WILL TRY TO DECREASE CALORIES INTAKE Code(s): E66.01 - Morbid (severe) obesity due to excess calories Plan: Talked to her about need to lose weight but realistically she is not going to be able to lose weight. (2) KYRA on CPAP: Comment: LONGSTANDING HISTORY OF OBSTRUCTIVE SLEEP APNEA. SHE DOES HAVE THE NEW CPAP DEVICE. COMPLIANCE DATA IS NOT AVAILABLE. S SHE IS USING ONLY FOR A FEW HOURS PER NIGHT. Code(s): G47.33 - Obstructive sleep apnea (adult) (pediatric); Z99.89 - Dependence on other enabling machines and devices Plan: AGAIN TALKED TO THE PATIENT AND HER DAUGHTER THAT SHE NEEDS TO USE AT LEAST FOR 4-5 HOURS EVERY NIGHT TO GET THE BENEFIT FROM USE OF CPAP. (3) Restrictive lung disease: Comment: KNOWN TO HAVE RESTRICTIVE LUNG DISEASE SINCE THE HER PULMONARY FUNCTION TEST IN 2012. CLINICALLY I AM SURE SHE DOES HAVE MODERATE DEGREE OF RESTRICTION, THIS IS SECONDARY TO MORBID OBESITY. SHE ALSO SEEM TO HAVE MILD DEGREE OF ASTHMA/REACTIVE AIRWAYS. IT IS OKAY TO USE ALBUTEROL INHALER P.R.N.. Code(s): J98.4 - Other disorders of lung Plan: ABOVE Quality Reporting (2019) Adult ([facility] 138/06/22/68) Smoking risk assessment performed?: Yes Patient Tobacco Use Status: Never used Tobacco Coding Level of Care Code Est Pt Level 3 (27914) Diagnoses Morbid obesity E66.01 KYRA on CPAP G47.33; Z99.89 Restrictive lung disease J98.4
== END 2023-05-24 15:55 | disposition home or self-care (01) ==
PROVIDERS: PCP Internal Medicine; Visit Provider Internal Medicine
DX: E66.01 Morbid (severe) obesity due to excess calories (principal); G47.33 Obstructive sleep apnea (adult) (pediatric); Z99.89 Dependence on other enabling machines and devices; J98.4 Other disorders of lung
CPT/HCPCS: 99213

== ENCOUNTER → 2023-06-09 23:59 | Outpatient (BNV) | payer OTHER, SELFPAY ==
--- NOTE | 2023-06-13 17:44 | MHC.OFFVIS ---
Intake Intake Visit Reasons: Remote CardioMEMS Check- [facility] Allergies lactose Allergy (Intermediate, Verified 05/24/23 15:50) Vomiting amlodipine Allergy (Mild, Verified 05/24/23 15:50) leg edema liraglutide [From VICTOZA] Allergy (Mild, Verified 05/24/23 15:50) VOMITING RUBI PFSH Medical History Restrictive lung disease CKD (chronic kidney disease) stage 4, GFR 15-29 ml/min Right hemiparesis Cerebrovascular accident (CVA) due to occlusion of left middle cerebral artery Skin lesion Lumbar degenerative disc disease Gout CKD (chronic kidney disease) BRYNN (obstructive sleep apnea) Arthritis Hypercholesteremia CAD (coronary artery disease) Sinusitis Stroke Asthma Hypertension Diabetes Surgical History History of esophagogastroduodenoscopy (EGD) H/O colonoscopy History of bilateral tubal ligation History of heart surgery History of coronary angioplasty with insertion of stent History of cataract surgery H/O right breast biopsy Family History Father Stroke Mother Myocardial infarction Paternal Uncle Cancer Family/Other Breast cancer Social History Household Members: Family Housing: House Are you a primary career portals teacher to a significant other at home: No Alcohol intake: never Comment: family at bedside Patient Tobacco Use Status: Never used Tobacco e-Cigarette/Vaping Use: Never Used Second Hand Smoke Exposure: No Advance Directives Date on File: 01/25/22 service: No Current occupational status: unemployed and disabled Sexual orientation: Straight/Heterosexual Gender identity: Female Cognitive needs: Yes Hearing needs: No Vision needs: No Female Reproductive History Menstrual Age of Menarche: 14 Office Procedures Cardiac Device Check Cardiac Device Check Details: Monitoring period dates: 05/01/23 - 06/09/23 Optimal PA pressure range: LOREN goal 30mmhg Procedure code: 43491 BACKGROUND: Anna is implanted with the CardioMEMS PA Sensor.? I use this technology to monitor PA pressures on a weekly basis to ensure patients are within their optimal range to prevent decompensation.? SUMMARY:? I utilized the remote monitoring platform (Guruji) to set optimal targets for pulmonary artery pressure thresholds as part of acute and chronic management of patient?s heart failure. During the period indicated above, I monitored the patient?s pulmonary artery pressures weekly via trend analysis and notification reports which provide alerts when patient?s PA pressures were outside of range to prompt immediate action in medication changes and communications.? The weekly reports are archived in the Guruji system which serve as a parallel record to document weekly PA pressures, medication changes, and clinical notes. I have reviewed readings on 05/02, 05/08, 05/15, 05/18, 05/23, 05/30, 06/06. Her PA Mean rubi ranged between 24- 37mmhg. Diuretics adjusted as needed for elevated readings. 17627 - Remote monitoring of wireless pulmonary artery pressure sensor Procedure code (CPT) selection complete Assessment & Plan Assessment & Plan (1) Presence of CardioMEMS HF system: Code(s): Z95.818 - Presence of other cardiac implants and grafts Plan: monthly report Quality Reporting (2019) Adult ([facility] ) Smoking risk assessment performed?: Yes Patient Tobacco Use Status: Never used Tobacco Coding Level of Care Code Procedure Only Diagnoses Presence of CardioMEMS HF system Z95.818 CPT Codes Cardiac Device Check - Cardiac Device 17: 68853 - Remote monitoring of wireless pulmonary artery pressure sensor ([id number])
== END ==
PROVIDERS: PCP Internal Medicine; Visit Provider Nurse Practitioner Family
DX: I50.32 Chronic diastolic (congestive) heart failure (principal); Z95.818 Presence of other cardiac implants and grafts
CPT/HCPCS: 93264

== ENCOUNTER 2023-06-26 12:45 | Outpatient (AMB) | payer OTHER, SELFPAY ==
[2023-06-26 12:55] VITALS: BP 128/62; PULSE 65; TEMP 36.4; O2SAT 100; BMI 39.9
--- NOTE | 2023-06-26 12:55 | MHC.OFFVIS ---
Intake Vital Signs 06/26/23 12:55 Height 5 ft 2 in Weight 218 lb 4.122 oz BMI 39.9 BP 128/62 Blood Pressure Location Lt brachial Position Sitting Pulse 65 Pulse Source Pulse Oximeter Temp 97.6 F Temp Source Skin Pulse Oximetry (%) 100 Oxygen Delivery Method Room Air Intake Visit Reasons: Gout Intake Note: New presents today for gout consult. Previously seen by Dr Butcher. C/o pain in multiple joints. Cluster Bore Operator Required: No Accompanied by: Daughter Allergies lactose Allergy (Intermediate, Verified 06/26/23 13:01) Vomiting amlodipine Allergy (Mild, Verified 06/26/23 13:01) leg edema liraglutide [From VICTOZA] Allergy (Mild, Verified 06/26/23 13:01) VOMITING RUBI Medication List - Last Reconciled 06/26/23 by Naomi Mcneill MD albuterol sulfate 90 mcg/actuation 2 puffs inhalation Q6H PRN 30 days amitriptyline 25 mg PO BEDTIME apixaban (Eliquis) 5 mg PO BID 90 days ascorbic acid (vitamin C) (Vitamin C With Allie Hips) 500 mg PO DAILY 90 days blood sugar diagnostic As directed cholecalciferol (vitamin D3) 50 mcg PO DAILY 90 days clopidogrel (Plavix) 75 mg PO DAILY commode As directed dapagliflozin propanediol (Farxiga) 10 mg PO DAILY ferrous sulfate 325 mg PO DAILY 90 days furosemide 40 mg PO BID gabapentin 300 mg PO BID hydralazine 25 mg PO BID insulin regular hum U-500 conc 0 - 450 units subcut DAILY PRN lactulose 10 grams (15 mL) PO BEDTIME PRN 30 days metoprolol tartrate 50 mg (2 x 25 mg) PO BID 90 days [pulse oximeter As directed] rosuvastatin 40 mg PO DAILY 90 days sennosides (Senna Laxative) 17.2 mg (2 x 8.6 mg) PO BEDTIME PRN 30 days Shower Chair As directed walker with seat and wheels HPI HPI Comments History of Present Illness Details This is a 62-year-old female with insulin-dependent diabetes mellitus, heart failure who presents for gout evaluation. Patient states that she had left wrist swelling 3-5 years ago and was admitted at [facility] and fluid was aspirated from her left wrist and was told that she has gout. According to daughter patient was on allopurinol 300 mg daily and colchicine for some time then it was discontinued due to worsening heart and kidney function. Patient states that she has diffuse pain everywhere, she has intermittent episodes of pain in her hands, fingers, she also has pain in her neck and low back. Back in March, she was prescribed colchicine by her history card clerk with some improvement. She is unaware of any history of kidney stones. She does not consume alcohol. She is unaware of any family history of gout PFS Medical History Restrictive lung disease CKD (chronic kidney disease) stage 4, GFR 15-29 ml/min Right hemiparesis Cerebrovascular accident (CVA) due to occlusion of left middle cerebral artery Skin lesion Lumbar degenerative disc disease CKD (chronic kidney disease) BRYNN (obstructive sleep apnea) Arthritis Hypercholesteremia CAD (coronary artery disease) Sinusitis Stroke Asthma Hypertension Diabetes Surgical History History of esophagogastroduodenoscopy (EGD) H/O colonoscopy History of bilateral tubal ligation History of heart surgery History of coronary angioplasty with insertion of stent History of cataract surgery H/O right breast biopsy Family History Father Stroke Mother Myocardial infarction Paternal Uncle Cancer Family/Other Breast cancer Social History Household Members: Family Housing: House Are you a primary ocular care technician to a significant other at home: No Alcohol intake: never Comment: family at bedside Patient Tobacco Use Status: Never used Tobacco e-Cigarette/Vaping Use: Never Used Second Hand Smoke Exposure: No Advance Directives Date on File: 01/25/22 service: No Current occupational status: unemployed and disabled Sexual orientation: Straight/Heterosexual Gender identity: Female Cognitive needs: Yes Hearing needs: No Vision needs: No Female Reproductive History Menstrual Age of Menarche: 14 Review of Systems Const Reports fatigue, Reports headache(s), Reports weakness and Reports weight gain Eyes Reports blurry vision, Reports dry eyes, Reports itchy eyes and Reports eye pain ENT Reports dizziness, Reports dry mouth, Reports headache(s) and Reports tinnitus Card Reports dyspnea and Reports dyspnea on exertion Resp Reports cough, Reports dyspnea, Reports dyspnea on exertion and Reports wheezing GI Reports constipation, Reports heartburn and Reports nausea Musc Reports arthralgias, Reports joint swelling, Reports numbness and Reports stiffness Skin/Breast Reports alopecia and Reports rash Neuro Reports dizziness, Reports headache(s), Reports numbness and Reports weakness Endo Reports fatigue and Reports polydipsia Aller/Immun Reports itchy eyes and Reports wheezing Physical Exam Vital Signs: Last Vital Signs Temp 97.6 F 06/26/23 12:55 Pulse 65 06/26/23 12:55 BP 128/62 06/26/23 12:55 Pulse Ox 100 06/26/23 12:55 Oxygen Delivery Method Room Air 06/26/23 12:55 BMI result Body Mass Index 39.9 Const General: cooperative, healthy appearing and comfortable Nutritional Appearance: obese morbidly obese Orientation/consciousness: patient oriented x3 Limitations: no limitations HEENT Head: Yes normocephalic and Yes atraumatic Resp Effort & Inspection: normal respiratory effort and able to speak in complete sentences Skin Other: Acanthosis nigricans Neuro General: patient oriented x3 Extrem Other: Mild deformity of left wrist but no active synovitis Osteoarthritic changes of both hands Bilateral toe bunions, more prominent on the left, potentially tophus on left big toe bunion Results Reviewed Results Reviewed: ER #: [id number] XR/XR foot RT min 3V IMPRESSION: -No gas tracking in soft tissues or acute bony destructive process. No osteomyelitis demonstrated. 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 -Bilateral calcaneal spurring, arthropathy midfoot with dorsal spurring. Bilateral great toe osteoarthritis Assessment & Plan Assessment & Plan (1) Gout: Code(s): M10.9 - Gout, unspecified Qualifiers: Gout site: multiple sites Gout etiology: due to renal impairment Chronicity: chronic Presence of tophus: without tophus Qualified Code(s): M1A.39X0 - Chronic gout due to renal impairment, multiple sites, without tophus (tophi) Plan: This is a 62-year-old female presents for gout evaluation. She mentioned that she had left wrist arthrocentesis at [facility] 3-5 years ago which showed gout and was on allopurinol and colchicine for some time and it was discontinued due to progressive heart and kidney failure. Will request records from [facility]. Right foot x-rays show paraArticular erosions consistent with gout. Most recent uric acid level was elevated. Will check repeat labs. Start allopurinol 50 mg daily and colchicine 0.6 mg every other day. Check HLA B 5801. Labs today and before next visit in 2 months Plan I spent 47 minutes reviewing patient's chart, evaluating patient, ordering diagnostic workup, counseling patient her daughter and documenting in the chart Orders: Orders Comprehensive Met. Panel Today M10.9 - Gout, unspecified C Reactive Protein Today M10.9 - Gout, unspecified Uric Acid Today M10.9 - Gout, unspecified HLA-B 58:01 Typing Today Z51.81 - Encounter for therapeutic drug level monitoring, Z79.899 - Other halfway (current) drug therapy Comprehensive Met. Panel 2 Months M10.9 - Gout, unspecified Uric Acid 2 Months M10.9 - Gout, unspecified Complete Blood Count Auto Diff Today M10.9 - Gout, unspecified Erythrocyte Sedimentation Rate Today M10.9 - Gout, unspecified Complete Blood Count Auto Diff 2 Months M10.9 - Gout, unspecified Medications: New allopurinol 50 mg (1/2 x 100 mg) PO DAILY 30 tabs 1RF colchicine 0.6 mg PO Q OTHER DAY 30 tabs 1RF Quality Reporting (2019) Adult ([facility] ) Smoking risk assessment performed?: Yes Patient Tobacco Use Status: Never used Tobacco Coding Level of Care Code New Pt Level 4 (28693) Diagnoses Chronic gout due to renal impairment of multiple sites without tophus M1A.39X0 Gout site: multiple sites Gout etiology: due to renal impairment Chronicity: chronic Presence of tophus: without tophus
== END 2023-06-26 14:02 | disposition home or self-care (01) ==
PROVIDERS: PCP Internal Medicine; Visit Provider Student in an Organized Health Care Education/Training Program
DX: M1A.39X0 Chronic gout due to renal impairment, multiple sites, without tophus (tophi) (principal)
CPT/HCPCS: 99204

== ENCOUNTER 2023-06-26 12:45 | Outpatient (REF) | payer OTHER, SELFPAY ==
[2023-06-26 14:15] LABS: MANUAL DIFF FLAG NO
[2023-06-26 15:01] LABS: Basophils Percent Auto 0.5 % (0-2); Eosinophils Absolute Auto 0.2 X10*3/uL (0.0-0.4); Eosinophils Percent Auto 2.3 % (0-4); Hematocrit 42.5 % (37.0-47.0); Hemoglobin 13.7 g/dl (12.0-16.0); Imm Gran Abs Auto 0.03 X10*3/uL (0.00-0.03); Imm Gran Pct Auto 0.4 % (0.0-0.4); Lymphocytes Absolute Auto 2.4 X10*3/uL (1.2-4.9); Lymphocytes Percent Auto 32.1 % (20-40); Mean Corpuscular HGB Conc 32.2 g/dl (31.0-35.0); Mean Corpuscular Hemoglobin 29.3 pg (27.0-33.0); Mean Platelet Volume 11.5 fL (9.4-12.3); Monocytes Absolute Auto 0.7 X10*3/uL (0.1-1.2); Monocytes Percent Auto 9.5 % (2-11); Neutrophils Percent Auto 55.2 % (45-73); Platelet Count 227 X10*3/uL (160-400); Red Blood Count 4.67 X10*6/uL (4.20-5.50); Red Cell Distribution Width 15.1 % (11.0-16.0); White Blood Count 7.3 X10*3/uL (4.8-10.8)
[2023-06-26 15:29] LABS: Alanine Aminotransferase 24 U/L (0-31); Albumin Level 3.4 g/dL (3.5-5.0); Alkaline Phosphatase 69 U/L (39-117); Anion Gap 12 (12-20); Aspartate Amino Transferase 23 U/L (5-31); Bilirubin Total 0.3 mg/dL (0.0-1.0); Blood Urea Nitrogen 22 mg/dL (9-16); C Reactive Protein 0.49 mg/dL (< or = 0.50); Carbon Dioxide 33 mmol/L (22-29); Chloride 95 mmol/L (96-108); Estimated Glomerular Filt Rate 26; Glucose Random 346 mg/dL (60-115); Sodium 137 mmol/L (135-145); Total Protein 7.4 g/dL (6.5-8.0); Uric Acid 9.2 mg/dL (2.4-5.7)
[2023-06-26 15:39] LABS: Erythrocyte Sedimentation Rate 38 MM/HR (0-20)
[2023-07-03 11:48] LABS: HLA-B 58:01 Typing Negative (Negative)
== END 2023-06-26 12:46 | disposition home or self-care (01) ==
LOC: HO.LAB 12:45
PROVIDERS: PCP Internal Medicine; Visit Provider Student in an Organized Health Care Education/Training Program
DX: M1A.39X0 Chronic gout due to renal impairment, multiple sites, without tophus (tophi) (principal); Z51.81 Encounter for therapeutic drug level monitoring; Z79.899 Other long term (current) drug therapy
CPT/HCPCS: 36415; 80053; 81381; 84550; 85025; 85652; 86140; 99202

== ENCOUNTER → 2023-07-10 23:59 | Outpatient (BNV) | payer OTHER, SELFPAY ==
--- NOTE | 2023-07-20 11:43 | A.OFFVIS_ITS ---
Intake Intake Visit Reasons: Remote CardioMEMS Check- [facility] Allergies lactose Allergy (Intermediate, Verified 06/26/23 13:01) Vomiting amlodipine Allergy (Mild, Verified 06/26/23 13:01) leg edema liraglutide [From VICTOZA] Allergy (Mild, Verified 06/26/23 13:01) VOMITING RUBI PFSH Medical History Restrictive lung disease CKD (chronic kidney disease) stage 4, GFR 15-29 ml/min Right hemiparesis Cerebrovascular accident (CVA) due to occlusion of left middle cerebral artery Skin lesion Lumbar degenerative disc disease CKD (chronic kidney disease) BRYNN (obstructive sleep apnea) Arthritis Hypercholesteremia CAD (coronary artery disease) Sinusitis Stroke Asthma Hypertension Diabetes Surgical History History of esophagogastroduodenoscopy (EGD) H/O colonoscopy History of bilateral tubal ligation History of heart surgery History of coronary angioplasty with insertion of stent History of cataract surgery H/O right breast biopsy Family History Father Stroke Mother Myocardial infarction Paternal Uncle Cancer Family/Other Breast cancer Social History Household Members: Family Housing: House Are you a primary career development associate to a significant other at home: No Alcohol intake: never Comment: family at bedside Patient Tobacco Use Status: Never used Tobacco e-Cigarette/Vaping Use: Never Used Second Hand Smoke Exposure: No Advance Directives Date on File: 01/25/22 service: No Current occupational status: unemployed and disabled Sexual orientation: Straight/Heterosexual Gender identity: Female Cognitive needs: Yes Hearing needs: No Vision needs: No Female Reproductive History Menstrual Age of Menarche: 14 Office Procedures Cardiac Device Check Cardiac Device Check Details: Monitoring period dates: 06/10/23 - 07/10/23 Optimal PA pressure range:LOREN goal 30mmhg Procedure code: 11465 BACKGROUND: Anna is implanted with the CardioMEMS PA Sensor.? I use this technology to monitor PA pressures on a weekly basis to ensure patients are within their optimal range to prevent decompensation.? SUMMARY:? I utilized the remote monitoring platform ([employer]) to set optimal targets for pulmonary artery pressure thresholds as part of acute and chronic management of patient?s heart failure. During the period indicated above, I monitored the patient?s pulmonary artery pressures weekly via trend analysis and notification reports which provide alerts when patient?s PA pressures were outside of range to prompt immediate action in medication changes and communications.? The weekly reports are archived in the [employer] system which serve as a parallel record to document weekly PA pressures, medication changes, and clinical notes. I have reviewed readings on 06/12, 06/15, 06/20, 06/26, 07/03, 07/08. Her LOREN has ranged between 26-33mmhg. Feeling well. 15900 - Remote monitoring of wireless pulmonary artery pressure sensor Procedure code (CPT) selection complete Assessment & Plan Assessment & Plan (1) Presence of CardioMEMS HF system: Code(s): Z95.818 - Presence of other cardiac implants and grafts Plan: monthly report Quality Reporting (2019) Adult ([facility] 138/06/22/68) Smoking risk assessment performed?: Yes Patient Tobacco Use Status: Never used Tobacco Coding Level of Care Code Procedure Only Diagnoses Presence of CardioMEMS HF system Z95.818 CPT Codes Cardiac Device Check - Cardiac Device 17: 54143 - Remote monitoring of wireless pulmonary artery pressure sensor ([id number])
== END ==
PROVIDERS: PCP Internal Medicine; Visit Provider Nurse Practitioner Family
DX: Z95.818 Presence of other cardiac implants and grafts (principal)
CPT/HCPCS: 93264

== ENCOUNTER 2023-07-25 08:43 | Outpatient (AMB) | payer OTHER, SELFPAY ==
[2023-07-25 08:45] VITALS: BP 134/60; PULSE 69; O2SAT 96; BMI 41.3
--- NOTE | 2023-07-25 08:45 | A.OFFPC_ITS ---
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 Accompanied by: Daughter Allergies lactose Allergy (Intermediate, Verified 07/25/23 09:17) Vomiting amlodipine Allergy (Mild, Verified 07/25/23 09:17) leg edema liraglutide [From VICTOZA] Allergy (Mild, Verified 07/25/23 09:17) VOMITING RUBI Medication List - Last Reconciled 07/25/23 by Shara Grimes MD albuterol sulfate 90 mcg/actuation 2 puffs inhalation Q6H PRN 30 days allopurinol 50 mg (1/2 x 100 mg) PO DAILY amitriptyline 25 mg PO BEDTIME apixaban (Eliquis) 5 mg PO BID 90 days ascorbic acid (vitamin C) (Vitamin C With Allie Hips) 500 mg PO DAILY 90 days blood sugar diagnostic As directed cholecalciferol (vitamin D3) 50 mcg PO DAILY 90 days clopidogrel (Plavix) 75 mg PO DAILY colchicine 0.6 mg PO Q OTHER DAY commode As directed dapagliflozin propanediol (Farxiga) 10 mg PO DAILY ferrous sulfate 325 mg PO DAILY 90 days furosemide 40 mg PO BID gabapentin 300 mg PO BID hydralazine 25 mg PO BID insulin regular hum U-500 conc 0 - 450 units subcut DAILY PRN lactulose 10 grams (15 mL) PO BEDTIME PRN 30 days metoprolol tartrate 50 mg (2 x 25 mg) PO BID 90 days [pulse oximeter As directed] rosuvastatin 40 mg PO DAILY 90 days sennosides (Senna Laxative) 17.2 mg (2 x 8.6 mg) PO BEDTIME PRN 30 days Shower Chair As directed walker with seat and wheels Tobacco use date assessed: 07/25/23 Dental Screening Dental Screen Date: 07/25/23 Did you have a dental visit in the last 12 months?: No Did you have a dental problem in the last 6 months where you did not have access to dental care?: No Was dental information given to patient?: Patient has dentist HPI HPI Comments History of Present Illness Details This is a 62-year-old female with diabetes mellitus type 2 on long-term current use of insulin, chronic congestive heart failure with preserved ejection fraction, paroxysmal atrial fibrillation, right hemiparesis secondary to stroke and morbid obesity that comes today accompanied by daughter Kyaw Rojas 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 A1c elevated and she has on an insulin pump follow by Endocrinology. I advised low-carbohydrate diet to be more strict. Last echocardiogram was done June 2022 and next echocardiogram will be August 2023. She has gained weight and she is monitor by Cardiology. Compliant with medications. Atrial fibrillation also monitor by Cardiology and is on chronic anticoagulation. Denies any active bleeding. Hemoglobin normal and I will discontinue ferrous sulfate. Walks with a walker due to right hemiparesis secondary to stroke. Morbidly obese with BMI of 41.3 and was advised to do diet and exercise. Last colonoscopy was 2013 and was normal and I will reorder Cologuard. Mammogram done May 2023 was normal. Pap smear done 2020 was normal. Has chronic kidney disease stage 4 with last GFR of 26 and this is follow by Nephrology. Has peripheral vascular disease follow by vascular surgery and will have an ultrasound soon. Last diabetic eye exam was June 2023 showing bilateral proliferative diabetic retinopathy and is legally blind. [facility] Medical History Restrictive lung disease CKD (chronic kidney disease) stage 4, GFR 15-29 ml/min Right hemiparesis Cerebrovascular accident (CVA) due to occlusion of left middle cerebral artery Skin lesion Lumbar degenerative disc disease CKD (chronic kidney disease) BRYNN (obstructive sleep apnea) Arthritis Hypercholesteremia CAD (coronary artery disease) Sinusitis Stroke Asthma Hypertension Diabetes Surgical History History of esophagogastroduodenoscopy (EGD) H/O colonoscopy History of bilateral tubal ligation History of heart surgery History of coronary angioplasty with insertion of stent History of cataract surgery H/O right breast biopsy Family History Father Stroke Mother Myocardial infarction Paternal Uncle Cancer Family/Other Breast cancer Social History Household Members: Family Housing: House Are you a primary skin care instructor to a significant other at home: No Alcohol intake: never Comment: family at bedside Patient Tobacco Use Status: Never used Tobacco e-Cigarette/Vaping Use: Never Used Second Hand Smoke Exposure: No Advance Directives Date on File: 01/25/22 service: No Current occupational status: unemployed and disabled Sexual orientation: Straight/Heterosexual Gender identity: Female Cognitive needs: Yes Hearing needs: No Vision needs: No Female Reproductive History Menstrual Age of Menarche: 14 Questionnaire PHQ-9 Over the last 2 weeks, how often have you been bothered by any of the following problems? 1. Little interest or pleasure in doing things: not at all 2. Feeling down, depressed, or hopeless: not at all 3. Trouble falling or staying asleep, or sleeping too much: not at all 4. Feeling tired or having little energy: not at all 5. Poor appetite or overeating: not at all 6. Feeling bad about yourself - or that you are a failure or have let yourself or your family down: not at all 7. Trouble concentrating on things, such as reading the newspaper or watching television: not at all 8. Moving or speaking so slowly that other people could have noticed. Or the opposite - being so fidgety or restless that you have been moving around a lot more than usual: not at all 9. Thoughts that you would be better off or of hurting yourself in some way: not at all Total score: 0 Depression Screening Interpretation: Negative Depression Screening Done: Yes 81229 - PHQ-9 Billing: Yes Source: Developed by Drs. Royce Nielsen, Sarah Dunbar, Farhan Bird and colleagues, with an educational maya from [employer]. Thrive Questionnaire Date Thrive assessed: 07/25/23 I am a: Patient What is your living situation today?: I have a steady place to live Within the past 12 months, did the food you bought not last and you didn't have the money to get more?: Never true Within the past 12 months, did you worry whether your food would run out before you got money to buy more?: Never true Do you have trouble paying for medicines?: No Do you have trouble getting transportation to medical appointments?: No Do you have trouble paying your heating and electricity bill?: No Do you have trouble taking care of your child, family member or friend?: No Do you have trouble with day-to-day activities such as bathing, preparing meals, shopping, managing finances, etc.?: Yes Are you currently unemployed and looking for a job?: No Are you interested in more education?: No Please select the resources that you would like help with: None Currently or been in a relationship where the following occur: no concerns reported THRIVE Score: 0 AUDIT C Alcohol Use Questionnaire (AUDIT-C) 1. How often do you have a drink containing alcohol?: Never Total Score: 0 Score Reviewed/Action Taken: No SILVANA-7 AMB Questionnaire SILVANA-7 Date SILVANA - 7 assessed: 07/25/23 Feeling nervous, anxious, or on edge: 0 = Not at all Not being able to stop or control worryin = Not at all Worrying too much about different things: 0 = Not at all Trouble relaxin = Not at all Being so restless that it is hard to sit still: 0 = Not at all Becoming easily annoyed or irritable: 0 = Not at all Feeling afraid as if something awful might happen: 0 = Not at all Total SILVANA-7 score (0-4 normal; 5-9 mild; 10-14 moderate; 15-21 severe): 0 Source: Developed by Drs. Royce Nielsen, Sarah Dunbar, Farhan Bird and colleagues, with an educational maya from [employer]. SILVANA-7 Assessment Billing SILVANA-7 Assessment Tool: SILVANA-7 Assessment 24077 Review of Systems Const All systems reviewed & are unremarkable except as noted in HPI and below Eyes Reports no additional complaints, Denies change in vision and Denies other visual disturbances Card Denies chest pain at rest, Denies chest pain with activity, Denies edema, Denies irregular heart rhythm, Denies claudication, Denies dyspnea, Denies dyspnea on exertion, Denies orthopnea, Denies paroxysmal nocturnal dyspnea and Denies slow heart rate Resp Denies cough, Denies dyspnea and Denies dyspnea on exertion GI Denies abdominal pain, Denies change in bowel habits, Denies excessive flatus, Denies nausea and Denies vomiting Denies urinary incontinence, Denies urinary hesitancy and Denies urinary urgency Physical exam (Primary Care) Vital Signs: Last Vital Signs Pulse 69 07/25/23 08:45 BP 134/60 07/25/23 08:45 Pulse Ox 96 07/25/23 08:45 Oxygen Delivery Method Room Air 07/25/23 08:45 BMI result Body Mass Index 41.3 Tobacco/Smoking Status: Tobacco use Status Tobacco use date assessed 07/25/23 07/25/23 08:55 Patient Tobacco Use Status Never used Tobacco 07/25/23 08:55 e-Cigarette/Vaping Use Never Used 07/25/23 08:55 PHQ-9: PHQ-9 Score PHQ-9: Total score 0 07/25/23 09:25 Depression Screening Interpretation: Negative Thrive Assessment: Date of Thrive Assessment Date Thrive assessed 07/25/23 07/25/23 08:55 Currently or been in a relationship where the following occur: no concerns repor nimo Const Orientation/consciousness: patient oriented x3 Limitations: ambulation with walker HENMT Head: Yes normal to inspection, Yes normocephalic and Yes atraumatic Ears: external ears normal Resp Effort & Inspection: normal respiratory effort Auscultation: clear to auscultation bilaterally Cardio Jugular venous distension: no JVD Rate: regular rate Rhythm: regular rhythm Heart sounds: S1 normal heart sound present and S2 normal heart sound present GI Inspection: Yes normal to inspection Palpation (GI): Soft to palpation and nontender Auscultation: normal bowel sounds Neuro General: patient oriented x3 Motor exam (neuro): Abnormal motor strength present (5/5 left, 3/5 right) Extrem Right lower extremity: lower leg Details: pitting edema Details: 1+ Left lower extremity: lower leg Details: pitting edema Details: 1+ Psych Appearance: grossly normal Results AMB Hemoglobin A1c AMB Hemoglobin A1c 8.7 % Last Edit by CHARLY Mobley on 07/25/23 08:5 7 Results Reviewed Results Reviewed: Laboratory Last Values Hgb A1c (Clinic) 8.7 % (4.0-6.0) H 07/25/23 08:45 Assessment and Plan Assessment & Plan (1) Physical exam: Code(s): Z00.00 - Encounter for general adult medical examination without abnormal findings Plan: Repeat in a year. (2) Right hemiparesis: Code(s): G81.91 - Hemiplegia, unspecified affecting right dominant side Plan: Continue the use of a walker. (3) Chronic heart failure with preserved ejection fraction (HFpEF): Code(s): I50.32 - Chronic diastolic (congestive) heart failure Plan: Continue the use of diuretics. Follow-up with Cardiology. The goal is to not gain 5 lb in a week. 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 Follow-up with endocrinology. A1c goal is equal or less than 7%. (5) CKD (chronic kidney disease) stage 4, GFR 15-29 ml/min: Code(s): N18.4 - Chronic kidney disease, stage 4 (severe) Plan: Avoid NSAIDs. Keep blood pressure less than 130/80. (6) PVD (peripheral vascular disease): Comment: 02/17/2022 - right SFA atherectomy and plasty. Code(s): I73.9 - Peripheral vascular disease, unspecified Plan: Follow-up with vascular surgery. (7) Morbid obesity: Comment: SHE REMAINS GROSSLY OBESE. NOT IN ANY WEIGHT MANAGEMENT PROGRAM. COUNSELED THAT SHE NEEDS TO LOSE SOME WEIGHT, WHICH IS GOING TO BE DIFFICULT FOR HER BECAUSE SHE CANNOT WALK MUCH. SHE CLAIMS SHE WILL TRY TO DECREASE CALORIES INTAKE Code(s): E66.01 - Morbid (severe) obesity due to excess calories Plan: Start diet and exercise. BMI goal is less than 30. (8) Paroxysmal atrial fibrillation: Code(s): I48.0 - Paroxysmal atrial fibrillation Plan: Continue Eliquis. Follow-up with Cardiology. Orders: Orders AMB Hemoglobin A1c Today E11.9 - Type 2 diabetes mellitus without complications, Z79.4 - alf (current) use of insulin Complete Blood Count Auto Diff Today D64.9 - Anemia, unspecified Vitamin B12 and Folate Today E53.8 - Deficiency of other specified B group vitamins Lipid Panel Today E78.5 - Hyperlipidemia, unspecified Microalbumin, Random (w Creat) Today E11.9 - Type 2 diabetes mellitus without complications IRON PROFILE Today D64.9 - Anemia, unspecified Vitamin D 25-OH Total Today E55.9 - Vitamin D deficiency, unspecified Comprehensive [place]. Panel Fast Today N18.30 - Chronic kidney disease, stage 3 unspecified NT-proBNP Today I50.32 - Chronic diastolic (congestive) heart failure Referrals Cologuard Test Z12.11 - Encounter for screening for malignant neoplasm of colon, Z12.12 - Encounter for screening for malignant neoplasm of rectum Medications: New clotrimazole 1% 1 appl topical BID 4 weeks 15 grams 1RF Discontinued ferrous sulfate Discontinued Reason: Patient Completed Course 325 mg PO DAILY 90 days 90 tabs 1RF Coding Level of Care Code Est Pt Prev Care 40-64y(55353) Diagnoses Physical exam Z00.00 Right hemiparesis G81.91 Chronic heart failure with preserved ejection fraction (HFpEF) I50.32 Type 2 diabetes mellitus, with long-term current use of insulin E11.9; Z79.4 CKD (chronic kidney disease) stage 4, GFR 15-29 ml/min N18.4 PVD (peripheral vascular disease) I73.9 Morbid obesity E66.01 Paroxysmal atrial fibrillation I48.0 Additional Codes SILVANA-7 Assessment Billing - SILVANA-7 Assessment Tool: SILVANA-7 Assessment 95326 ([id number]) Time Spent (min) 36
== END 2023-07-25 09:33 | disposition home or self-care (01) ==
PROVIDERS: PCP Internal Medicine; Visit Provider Internal Medicine
DX: Z00.00 Encounter for general adult medical examination without abnormal findings (principal); I69.351 Hemiplegia and hemiparesis following cerebral infarction affecting right dominant side; E11.22 Type 2 diabetes mellitus with diabetic chronic kidney disease; N18.4 Chronic kidney disease, stage 4 (severe); Z79.4 Long term (current) use of insulin; I73.9 Peripheral vascular disease, unspecified; E66.01 Morbid (severe) obesity due to excess calories; I48.0 Paroxysmal atrial fibrillation
CPT/HCPCS: 83036; 99396

== ENCOUNTER 2023-08-03 13:05 | Outpatient (REF) | payer OTHER, SELFPAY ==
--- NOTE | ~2023-08-03 | US_ITS ---
EXAMINATION: US arterial duplex LE BI, US BART complete CLINICAL INFORMATION: PVD COMPARISON: Bilateral lower extremity duplex 01/30/2023 and 09/24/22 TECHNIQUE: Ankle pulse volume recordings, ankle pressure measurements and ankle brachial indices were obtained of the lower extremity arterial system bilaterally in addition to duplex Doppler techniques with wave form analysis and measurement of velocities in the common femoral, profunda femoral, superficial femoral, popliteal, tibial and peroneal arteries. The study was performed only at rest. FINDINGS: RIGHT LE. THE RIGHT ANKLE-BRACHIAL INDEX IS: 0.7, previously 0.72 2. SEGMENTAL PRESSURES (mmHg): Ankle: PT not obtained, DP 102 3. PVR WAVEFORMS: Ankle: Abnormal 4. DIRECT DUPLEX: Common femoral artery: 213 cm/s, Multiphasic Profunda femoris artery: 250 cm/s, Multiphasic Superficial femoral artery (proximal): 172 cm/s, monophasic Superficial femoral artery (mid): 164 cm/s, biphasic Superficial femoral artery (distal): 178.2 cm/s, monophasic Proximal Popliteal artery: 177.1 cm/s, monophasic Distal popliteal artery: 128 cm/s, biphasic Mid posterior tibial artery: Occluded Anterior tibial artery: 11.8 cm/s, monophasic LEFT LE. THE LEFT ANKLE-BRACHIAL INDEX IS: 0.48, previously 0.6 >0.97-1.25 = normal - no significant arterial disease 0.75-0.96 = mild peripheral arterial disease 0.5-0.74 = moderate peripheral arterial disease <0.50 = severe peripheral arterial disease <0.30 = critical arterial disease 2. SEGMENTAL PRESSURES: Ankle: PT 70, DP 66 3. PVR WAVEFORMS: Ankle: Abnormal 4. DIRECT DUPLEX: Common femoral artery: 173.6 cm/s, monophasic Profunda femoris artery: 193.6 cm/s, monophasic Superficial femoral artery (proximal): 153.8 cm/s, monophasic Superficial femoral artery (mid): 96.7 cm/s, monophasic Superficial femoral artery (distal): 102.2 cm/s, monophasic Proximal Popliteal artery: 103.3 cm/s, monophasic Distal popliteal artery: 60.4 cm/s, monophasic Mid posterior tibial artery: 25.2 cm/s, monophasic Anterior tibial artery: 41.3 cm/s, monophasic US/US arterial duplex LE BI IMPRESSION: RIGHT LE. BART 0.7 consistent with moderate peripheral arterial disease, stable. 2. There is elevated velocity at the level of the common femoral artery suggesting inflow disease. LEFT LE. BART 0.48 consistent with severe peripheral arterial disease, worsened from prior. 2. There is monophasic flow throughout the left lower extremity suggesting inflow disease as well as diffuse disease throughout the left lower extremity.
== END 2023-08-03 13:06 | disposition home or self-care (01) ==
LOC: HO.US 13:05
PROVIDERS: PCP Internal Medicine; Visit Provider Surgery Vascular Surgery
DX: I73.9 Peripheral vascular disease, unspecified (principal)
CPT/HCPCS: 93923; 93925

== ENCOUNTER → 2023-08-21 23:59 | Outpatient (BNV) | payer OTHER, SELFPAY ==
--- NOTE | 2023-09-01 16:41 | MHC.OFFVIS ---
Intake Visit Reasons: Remote Cardi[facility]- [facility] Allergies lactose Allergy (Intermediate, Verified 08/30/23 15:16) Vomiting amlodipine Allergy (Mild, Verified 08/30/23 15:16) leg edema liraglutide [From VICTOZA] Allergy (Mild, Verified 08/30/23 15:16) VOMITING RUBI PFSH Medical History Restrictive lung disease CKD (chronic kidney disease) stage 4, GFR 15-29 ml/min Right hemiparesis Cerebrovascular accident (CVA) due to occlusion of left middle cerebral artery Skin lesion Lumbar degenerative disc disease CKD (chronic kidney disease) BRYNN (obstructive sleep apnea) Arthritis Hypercholesteremia CAD (coronary artery disease) Sinusitis Stroke Asthma Hypertension Diabetes Surgical History History of esophagogastroduodenoscopy (EGD) H/O colonoscopy History of bilateral tubal ligation History of heart surgery History of coronary angioplasty with insertion of stent History of cataract surgery H/O right breast biopsy Family History Father Stroke Mother Myocardial infarction Paternal Uncle Cancer Family/Other Breast cancer Social History Household Members: Family Housing: House Are you a primary health care facilities inspector to a significant other at home: No Alcohol intake: never Comment: family at bedside Patient Tobacco Use Status: Never used Tobacco e-Cigarette/Vaping Use: Never Used Second Hand Smoke Exposure: No Advance Directives Date on File: 01/25/22 service: No Current occupational status: unemployed and disabled Sexual orientation: Straight/Heterosexual Gender identity: Female Cognitive needs: Yes Hearing needs: No Vision needs: No Female Reproductive History Menstrual Age of Menarche: 14 Office Procedures Cardiac Device Check Cardiac Device Check Details: Monitoring period dates: 07/11/23 - 08/12/23 Optimal PA pressure range:LOREN goal 30mmhg Procedure code: 33589 BACKGROUND: Anna is implanted with the CardioMEMS PA Sensor.? I use this technology to monitor PA pressures on a weekly basis to ensure patients are within their optimal range to prevent decompensation.? SUMMARY:? I utilized the remote monitoring platform ([employer]) to set optimal targets for pulmonary artery pressure thresholds as part of acute and chronic management of patient?s heart failure. During the period indicated above, I monitored the patient?s pulmonary artery pressures weekly via trend analysis and notification reports which provide alerts when patient?s PA pressures were outside of range to prompt immediate action in medication changes and communications.? The weekly reports are archived in the [employer] system which serve as a parallel record to document weekly PA pressures, medication changes, and clinical notes. I have reviewed readings on 07/11, 07/18, 07/24, 07/30, 08/06, 08/10.. Her LOREN has ranged between 29-39mmhg. Feeling well. 24652 - Remote monitoring of wireless pulmonary artery pressure sensor Procedure code (CPT) selection complete Quality Reporting (2019) Adult ([facility] 138/06/22/68) Smoking risk assessment performed?: Yes Patient Tobacco Use Status: Never used Tobacco Assessment & Plan Assessment & Plan (1) Presence of CardioMEMS HF system: Code(s): Z95.818 - Presence of other cardiac implants and grafts Category: Medical Plan: monthly report Coding Level of Care Code Procedure Only Diagnoses Presence of CardioMEMS HF system Z95.818 CPT Codes Cardiac Device Check - Cardiac Device 17: 49477 - Remote monitoring of wireless pulmonary artery pressure sensor ([id number])
== END ==
PROVIDERS: PCP Internal Medicine; Visit Provider Nurse Practitioner Family
DX: I50.9 Heart failure, unspecified (principal); Z95.818 Presence of other cardiac implants and grafts
CPT/HCPCS: 93264

== ENCOUNTER 2023-08-22 10:00 | Outpatient (REF) | payer OTHER, SELFPAY ==
[2023-08-22 10:16] LABS: MANUAL DIFF FLAG NO
[2023-08-22 11:16] LABS: Basophils Absolute Auto 0.1 X10*3/uL (0.0-0.2); Eosinophils Absolute Auto 0.2 X10*3/uL (0.0-0.4); Eosinophils Percent Auto 3.4 % (0-4); Hematocrit 41.5 % (37.0-47.0); Hemoglobin 13.3 g/dl (12.0-16.0); Imm Gran Abs Auto 0.02 X10*3/uL (0.00-0.03); Imm Gran Pct Auto 0.3 % (0.0-0.4); Lymphocytes Absolute Auto 2.5 X10*3/uL (1.2-4.9); Lymphocytes Percent Auto 40.1 % (20-40); Mean Corpuscular Hemoglobin 29.1 pg (27.0-33.0); Mean Corpuscular Volume 90.8 fL (80.0-98.0); Mean Platelet Volume 11.1 fL (9.4-12.3); Monocytes Absolute Auto 0.7 X10*3/uL (0.1-1.2); Monocytes Percent Auto 11.3 % (2-11); Neutrophils Absolute Auto 2.7 x10*3/uL (2.0-8.3); Neutrophils Percent Auto 43.9 % (45-73); Platelet Count 259 X10*3/uL (160-400); Red Blood Count 4.57 X10*6/uL (4.20-5.50); Red Cell Distribution Width 14.8 % (11.0-16.0); White Blood Count 6.1 X10*3/uL (4.8-10.8)
[2023-08-22 12:11] LABS: Alanine Aminotransferase 26 U/L (0-31); Albumin Level 3.5 g/dL (3.5-5.0); Alkaline Phosphatase 68 U/L (39-117); Anion Gap 13 (12-20); Aspartate Amino Transferase 27 U/L (5-31); Bilirubin Total 0.3 mg/dL (0.0-1.0); Blood Urea Nitrogen 32 mg/dL (9-16); Calcium 9.5 mg/dL (8.4-10.2); Carbon Dioxide 32 mmol/L (22-29); Chloride 96 mmol/L (96-108); Estimated Glomerular Filt Rate 22; Glucose Random 254 mg/dL (60-115); Potassium 2.6 mmol/L (3.3-5.1); Sodium 138 mmol/L (135-145); Total Protein 7.8 g/dL (6.5-8.0); Uric Acid 10.1 mg/dL (2.4-5.7)
== END 2023-08-22 10:01 | disposition home or self-care (01) ==
LOC: HO.LAB 10:00
PROVIDERS: PCP Internal Medicine; Visit Provider Student in an Organized Health Care Education/Training Program
DX: M10.9 Gout, unspecified (principal)
CPT/HCPCS: 36415; 80053; 84550; 85025

== ENCOUNTER 2023-08-23 13:25 | Outpatient (AMB) | payer OTHER, SELFPAY ==
[2023-08-23 13:27] VITALS: BP 116/70; PULSE 78; O2SAT 97; BMI 40.1
--- NOTE | 2023-08-23 13:27 | A.OFFVIS_ITS ---
Vital Signs 08/23/23 13:27 Height 5 ft 2 in Weight 219 lb 2.232 oz BMI 40.1 BP 116/70 Blood Pressure Location Rt brachial Position Sitting Pulse 78 Pulse Source Pulse Oximeter Pulse Oximetry (%) 97 Oxygen Delivery Method Room Air Intake Visit Reasons: Follow up Gout in wrists, Gout Allergies lactose Allergy (Intermediate, Verified 07/25/23 09:17) Vomiting amlodipine Allergy (Mild, Verified 07/25/23 09:17) leg edema liraglutide [From VICTOZA] Allergy (Mild, Verified 07/25/23 09:17) VOMITING RUBI Medication List - Last Reconciled 08/23/23 by Naomi Mcneill MD albuterol sulfate 90 mcg/actuation 2 puffs inhalation Q6H PRN 30 days amitriptyline 25 mg PO BEDTIME apixaban (Eliquis) 5 mg PO BID 90 days ascorbic acid (vitamin C) (Vitamin C With Allie Hips) 500 mg PO DAILY 90 days blood sugar diagnostic As directed cholecalciferol (vitamin D3) 50 mcg PO DAILY 90 days clopidogrel (Plavix) 75 mg PO DAILY clotrimazole 1% 1 appl topical BID 4 weeks commode As directed dapagliflozin propanediol (Farxiga) 10 mg PO DAILY furosemide 40 mg PO BID gabapentin 300 mg PO BID hydralazine 25 mg PO BID insulin regular hum U-500 conc 0 - 450 units subcut DAILY PRN lactulose 10 grams (15 mL) PO BEDTIME PRN 30 days metoprolol tartrate 50 mg (2 x 25 mg) PO BID 90 days [pulse oximeter As directed] rosuvastatin 40 mg PO DAILY 90 days sennosides (Senna Laxative) 17.2 mg (2 x 8.6 mg) PO BEDTIME PRN 30 days Shower Chair As directed walker with seat and wheels HPI Comments Details: 63-year-old female with gout returns for follow-up she stated that last month she presented to the hospital, she was quite sick with low blood pressure. She was in the ICU for some time then eventually got downgraded and discharged. She was advised not to take anymore allopurinol or colchicine. Unfortunately I do not have any records of that hospitalization. She has not had any gout flare- ups since last visit Initial history: This is a 62-year-old female with insulin-dependent diabetes mellitus, heart failure who presents for gout evaluation. Patient states that she had left wrist swelling 3-5 years ago and was admitted at [facility] and fluid was aspirated from her left wrist and was told that she has gout. According to daughter patient was on allopurinol 300 mg daily and colchicine for some time then it was discontinued due to worsening heart and kidney function. Patient states that she has diffuse pain everywhere, she has intermittent episodes of pain in her hands, fingers, she also has pain in her neck and low back. Back in March, she was prescribed colchicine by her communications superintendent with some improvement. She is unaware of any history of kidney stones. She does not consume alcohol. She is unaware of any family history of gout [facility] Medical History Restrictive lung disease CKD (chronic kidney disease) stage 4, GFR 15-29 ml/min Right hemiparesis Cerebrovascular accident (CVA) due to occlusion of left middle cerebral artery Skin lesion Lumbar degenerative disc disease CKD (chronic kidney disease) BRYNN (obstructive sleep apnea) Arthritis Hypercholesteremia CAD (coronary artery disease) Sinusitis Stroke Asthma Hypertension Diabetes Surgical History History of esophagogastroduodenoscopy (EGD) H/O colonoscopy History of bilateral tubal ligation History of heart surgery History of coronary angioplasty with insertion of stent History of cataract surgery H/O right breast biopsy Family History Father Stroke Mother Myocardial infarction Paternal Uncle Cancer Family/Other Breast cancer Social History Household Members: Family Housing: House Are you a primary senior resident care director to a significant other at home: No Alcohol intake: never Comment: family at bedside Patient Tobacco Use Status: Never used Tobacco e-Cigarette/Vaping Use: Never Used Second Hand Smoke Exposure: No Advance Directives Date on File: 01/25/22 service: No Current occupational status: unemployed and disabled Sexual orientation: Straight/Heterosexual Gender identity: Female Cognitive needs: Yes Hearing needs: No Vision needs: No Female Reproductive History Menstrual Age of Menarche: 14 Review of Systems Musc Denies arthralgias and Denies joint swelling Physical Exam Vital Signs: Last Vital Signs Pulse 78 08/23/23 13:27 BP 116/70 08/23/23 13:27 Pulse Ox 97 08/23/23 13:27 Oxygen Delivery Method Room Air 08/23/23 13:27 BMI result Body Mass Index 40.1 Const General: cooperative, healthy appearing and comfortable Nutritional Appearance: obese morbidly obese Orientation/consciousness: patient oriented x3 Limitations: no limitations HEENT Head: Yes normocephalic and Yes atraumatic Resp Effort & Inspection: normal respiratory effort and able to speak in complete sentences Skin Other: Acanthosis nigricans Neuro General: patient oriented x3 Extrem Other: Mild deformity of left wrist but no active synovitis Osteoarthritic changes of both hands Bilateral toe bunions, more prominent on the left, potentially tophus on left big toe bunion Quality Reporting (2019) Adult ([facility] ) Smoking risk assessment performed?: Yes Patient Tobacco Use Status: Never used Tobacco Results Reviewed Results Reviewed: RDER #: [id number] XR/XR foot RT min 3V IMPRESSION: -No gas tracking in soft tissues or acute bony destructive process. No osteomyelitis demonstrated. 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 -Bilateral calcaneal spurring, arthropathy midfoot with dorsal spurring. Bilateral great toe osteoarthritis Assessment & Plan Assessment & Plan (1) Gout: Code(s): M10.9 - Gout, unspecified Category: Medical Qualifiers: Gout site: multiple sites Gout etiology: due to renal impairment Chronicity: chronic Presence of tophus: without tophus Qualified Code(s): M1A.39X0 - Chronic gout due to renal impairment, multiple sites, without tophus (tophi) Plan: This is a 62-year-old female with gout who presents for follow-up. She mentioned that she had left wrist arthrocentesis at [facility] 3-5 years ago which showed gout and was on allopurinol and colchicine for some time and it was discontinued due to progressive heart and kidney failure. Right foot x-rays show paraArticular erosions consistent with gout. Uric acid level elevated. I had started patient on allopurinol and colchicine last visit. Was admitted to [facility] and was quite sick according to daughter, was in the ICU. Discharge she was advised to discontinue allopurinol and colchicine. Unfortunately I do not have any access to her hospital stay. Will request records from [facility]. Most recent labs show progression of CKD and uric acid 10.1 Patient does not want to restart those meds. Not had any gout flare-ups. Advised patient to follow-up p.r.n.. Call the office if she develops any gout flare-up Plan I spent 17 minutes reviewing patient's chart, evaluating patient,counseling patient her daughter and documenting in the chart Coding Level of Care Code Est Pt Level 3 (67139) Diagnoses Chronic gout due to renal impairment of multiple sites without tophus M1A.39X0 Gout site: multiple sites Gout etiology: due to renal impairment Chronicity: chronic Presence of tophus: without tophus
== END 2023-08-23 14:01 | disposition home or self-care (01) ==
PROVIDERS: PCP Internal Medicine; Visit Provider Student in an Organized Health Care Education/Training Program
DX: M1A.39X0 Chronic gout due to renal impairment, multiple sites, without tophus (tophi) (principal)
CPT/HCPCS: 99213

== ENCOUNTER → 2023-08-23 13:25 | Outpatient (BNVA) | payer OTHER, SELFPAY | PROVIDERS: PCP Internal Medicine; Visit Provider Student in an Organized Health Care Education/Training Program | DX: M1A.39X0 Chronic gout due to renal impairment, multiple sites, without tophus (tophi) (principal) | CPT/HCPCS: 99212 ==

== ENCOUNTER 2023-08-30 14:30 | Outpatient (AMB) | payer OTHER, SELFPAY ==
[2023-08-30 14:51] VITALS: BP 122/72; PULSE 70; O2SAT 96; BMI 41.1
--- NOTE | 2023-08-30 14:51 | MHC.OFFVIS ---
Vital Signs 08/30/23 14:51 Height 5 ft 2 in Weight 224 lb 13.944 oz BMI 41.1 BP 122/72 Blood Pressure Location Lt brachial Position Sitting Pulse 70 Pulse Source Pulse Oximeter Pulse Oximetry (%) 96 Oxygen Delivery Method Room Air Intake Visit Reasons: brynn Intake Note: pt is here for follow up of BRYNN Cleat Thrower Required: No Allergies lactose Allergy (Intermediate, Verified 08/30/23 15:16) Vomiting amlodipine Allergy (Mild, Verified 08/30/23 15:16) leg edema liraglutide [From VICTOZA] Allergy (Mild, Verified 08/30/23 15:16) VOMITING RUBI Medication List - Last Reconciled 08/30/23 by Real Slade MD albuterol sulfate 90 mcg/actuation 2 puffs inhalation Q6H PRN 30 days amitriptyline 25 mg PO BEDTIME apixaban (Eliquis) 5 mg PO BID 90 days ascorbic acid (vitamin C) (Vitamin C With Allie Hips) 500 mg PO DAILY 90 days blood sugar diagnostic As directed cholecalciferol (vitamin D3) 50 mcg PO DAILY 90 days clopidogrel (Plavix) 75 mg PO DAILY clotrimazole 1% 1 appl topical BID 4 weeks commode As directed dapagliflozin propanediol (Farxiga) 10 mg PO DAILY furosemide 40 mg PO BID gabapentin 300 mg PO BID hydralazine 25 mg PO BID insulin regular hum U-500 conc 0 - 450 units subcut DAILY PRN lactulose 10 grams (15 mL) PO BEDTIME PRN 30 days metoprolol tartrate 50 mg (2 x 25 mg) PO BID 90 days [pulse oximeter As directed] rosuvastatin 40 mg PO DAILY 90 days sennosides (Senna Laxative) 17.2 mg (2 x 8.6 mg) PO BEDTIME PRN 30 days Shower Chair As directed walker with seat and wheels Do you need a note to return to daycare/school/sports/work: No HPI HPI brynn: Details: Anna is 63 years old female with morbid obesity, She is known to have obstructive sleep apnea since year 2012 when she had a polysomnogram study at [facility]. She has been using CPAP with pressure of 7 cm all along. However during the past year her usage has been sporadic. She has not been able to get new supplies. The mask does not fit her well. Her old machine does not transmit the data for compliance. She remains somewhat tired and sleepy during the daytime. She has mild asthma like symptoms and uses albuterol only p.r.n. She has multiple comorbidities which are being treated. [facility] Medical History Restrictive lung disease CKD (chronic kidney disease) stage 4, GFR 15-29 ml/min Right hemiparesis Cerebrovascular accident (CVA) due to occlusion of left middle cerebral artery Skin lesion Lumbar degenerative disc disease CKD (chronic kidney disease) BRYNN (obstructive sleep apnea) Arthritis Hypercholesteremia CAD (coronary artery disease) Sinusitis Stroke Asthma Hypertension Diabetes Surgical History History of esophagogastroduodenoscopy (EGD) H/O colonoscopy History of bilateral tubal ligation History of heart surgery History of coronary angioplasty with insertion of stent History of cataract surgery H/O right breast biopsy Family History Father Stroke Mother Myocardial infarction Paternal Uncle Cancer Family/Other Breast cancer Social History Household Members: Family Housing: House Are you a primary rn managed care to a significant other at home: No Alcohol intake: never Comment: family at bedside Patient Tobacco Use Status: Never used Tobacco e-Cigarette/Vaping Use: Never Used Second Hand Smoke Exposure: No Advance Directives Date on File: 01/25/22 service: No Current occupational status: unemployed and disabled Sexual orientation: Straight/Heterosexual Gender identity: Female Cognitive needs: Yes Hearing needs: No Vision needs: No Female Reproductive History Menstrual Age of Menarche: 14 Review of Systems Const All systems reviewed & are unremarkable except as noted in HPI and below Eyes Reports no additional complaints ENT Reports nasal congestion (MILD OFF AND ON) Card Denies chest pain, Reports irregular heart rhythm (PAROXYSMAL ATRIAL FIB) and Denies leg edema Resp Reports as per HPI GI Reports no additional complaints Reports no additional complaints Musc Reports abnormal gait (UNSTABLE ON FEET, USES WALKER FOR STABILITY), Reports back pain and Reports myalgias Skin/Breast Reports system reviewed and no additional complaints, except as documented Neuro Reports abnormal gait (UNSTABLE ON FEET, USES WALKER FOR STABILITY) Psych Reports no additional complaints Endo Reports other (DIABETES MELLITUS) Physical Exam Vital Signs: Last Vital Signs Pulse 70 08/30/23 14:51 BP 122/72 08/30/23 14:51 Pulse Ox 96 08/30/23 14:51 Oxygen Delivery Method Room Air 08/30/23 14:51 BMI result Body Mass Index 41.1 Const General: comfortable, no acute distress, alert and awake Orientation/consciousness: patient oriented x3 HEENT Head: Yes normal to inspection General nose exam: No nasal polyps present and No nasal discharge present Face and sinus: Yes sinuses nontender Mouth: oropharynx normal Throat: Yes posterior oropharynx normal Eyes General: appearance normal, both eyes and all related structures Neck Neck: Yes normal visual inspection, Yes no lymphadenopathy, Yes trachea midline and Yes no JVD Thyroid: Thyroid normal Chest Chest palpation & inspection: normal inspection of the chest, normal palpation of entire chest wall and no tenderness Resp Other: PERCUSSION NOTE IS BARELY PERCEPTIBLE BECAUSE OF THICK CHEST WALL. BREATH SOUNDS ARE DISTANT BUT EQUAL ON BOTH SIDES. NO WHEEZES CREPITATIONS OR RHONCHI ARE HEARD. Cardio Palpation: normal PMI Rate: regular rate Rhythm: regular rhythm Heart sounds: no gallops and no murmurs GI Palpation (GI): Soft to palpation, nontender, No hepatosplenomegaly present, no masses and Other GI palpation findings present (ABDOMEN MODERATELY OBESE AND PROTUBERANT) Auscultation: normal bowel sounds Back/Spine/Pelvis Thoracic/Lumbar Spine: thoracic and lumbar spine normal to inspection and thoraco-lumbar ROM limited Skin General skin exam: dry skin Neuro General: patient oriented x3 and No no focal motor deficits (WEAKNESS OF LOWER EXTREMITIES) Cranial nerves: Yes CN's II-XII intact bilaterally Extrem General: Yes normal to inspection, Yes no clubbing, cyanosis or edema and Yes no calf tenderness Psych Appearance: grossly normal and well kempt Speech and movement: Normal speech and movement present Quality Reporting (2019) Adult ([facility] 138/06/22/68) Smoking risk assessment performed?: Yes Patient Tobacco Use Status: Never used Tobacco Results Reviewed Results Reviewed: COMPLIANCE RESULTS ARE NOT AVAILABLE. Assessment & Plan Assessment & Plan (1) Morbid obesity: Comment: SHE REMAINS GROSSLY OBESE. NOT IN ANY WEIGHT MANAGEMENT PROGRAM . NOT ABLE TO DO ANY EXERCISE, WALKS SLOW WITH WALKER. Code(s): E66.01 - Morbid (severe) obesity due to excess calories Category: Medical Plan: COUNSELED ABOUT DIET AND NEED TO DO SOME EXERCISE LIKE WALKING. (2) BRYNN on CPAP: Comment: LONGSTANDING HISTORY OF OBSTRUCTIVE SLEEP APNEA. SHE IS STILL WAITING TO GET THE NEW CPAP DEVICE. Code(s): G47.33 - Obstructive sleep apnea (adult) (pediatric); Z99.89 - Dependence on other enabling machines and devices Category: Medical Plan: ORDERS WRITTEN FOR A NEW CPAP DEVICE AND SUPPLIES SHE IS INSTRUCTED TO START USING THE CPAP REGULARLY SOON SHE GETS THE SUPPLIES. (3) Restrictive lung disease: Comment: KNOWN TO HAVE RESTRICTIVE LUNG DISEASE SINCE THE HER PULMONARY FUNCTION TEST IN 2012. CLINICALLY I AM SURE SHE DOES HAVE MODERATE DEGREE OF RESTRICTION, THIS IS SECONDARY TO MORBID OBESITY. SHE ALSO SEEM TO HAVE MILD DEGREE OF ASTHMA/REACTIVE AIRWAYS. Code(s): J98.4 - Other disorders of lung Category: Medical Plan: DEEP BREATHING EXERCISES 3 TIMES A DAY MAY USE ALBUTEROL HFA 2 PUFFS Q 4-6 HOURS P.R.N. IF ANY WHEEZING OR COUGH Coding Level of Care Code Est Pt Level 3 (96122) Diagnoses Morbid obesity E66.01 BRYNN on CPAP G47.33; Z99.89 Restrictive lung disease J98.4
== END 2023-08-30 15:15 | disposition home or self-care (01) ==
PROVIDERS: PCP Internal Medicine; Visit Provider Internal Medicine
DX: E66.01 Morbid (severe) obesity due to excess calories (principal); G47.33 Obstructive sleep apnea (adult) (pediatric); Z99.89 Dependence on other enabling machines and devices; J98.4 Other disorders of lung
CPT/HCPCS: 99213

== ENCOUNTER → 2023-08-30 14:30 | Outpatient (BNVA) | payer OTHER, SELFPAY | PROVIDERS: PCP Internal Medicine; Visit Provider Internal Medicine | DX: J98.4 Other disorders of lung (principal); G47.33 Obstructive sleep apnea (adult) (pediatric); E66.01 Morbid (severe) obesity due to excess calories; Z68.41 Body mass index [BMI] 40.0-44.9, adult; Z99.89 Dependence on other enabling machines and devices | CPT/HCPCS: 99212 ==

== ENCOUNTER 2023-09-05 13:54 | Outpatient (REF) | payer OTHER, SELFPAY ==
[2023-09-05 15:15] LABS: MANUAL DIFF FLAG NO
[2023-09-05 15:43] LABS: Basophils Percent Auto 0.5 % (0-2); Eosinophils Absolute Auto 0.2 X10*3/uL (0.0-0.4); Eosinophils Percent Auto 2.5 % (0-4); Hematocrit 40.5 % (37.0-47.0); Hemoglobin 12.7 g/dl (12.0-16.0); Imm Gran Abs Auto 0.02 X10*3/uL (0.00-0.03); Imm Gran Pct Auto 0.3 % (0.0-0.4); Lymphocytes Absolute Auto 2.6 X10*3/uL (1.2-4.9); Lymphocytes Percent Auto 33.3 % (20-40); Mean Corpuscular HGB Conc 31.4 g/dl (31.0-35.0); Mean Corpuscular Hemoglobin 29.3 pg (27.0-33.0); Mean Corpuscular Volume 93.5 fL (80.0-98.0); Mean Platelet Volume 11.3 fL (9.4-12.3); Monocytes Percent Auto 12.1 % (2-11); Neutrophils Absolute Auto 4.1 x10*3/uL (2.0-8.3); Neutrophils Percent Auto 51.3 % (45-73); Platelet Count 180 X10*3/uL (160-400); Red Blood Count 4.33 X10*6/uL (4.20-5.50); White Blood Count 7.9 X10*3/uL (4.8-10.8)
[2023-09-05 16:44] LABS: Anion Gap 15 (12-20); Blood Urea Nitrogen 24 mg/dL (9-16); Calcium 10.2 mg/dL (8.4-10.2); Carbon Dioxide 34 mmol/L (22-29); Chloride 95 mmol/L (96-108); Estimated Glomerular Filt Rate 34; Glucose Random 152 mg/dL (60-115); Potassium 3.3 mmol/L (3.3-5.1); Sodium 141 mmol/L (135-145)
[2023-09-05 16:59] LABS: TSH reflex Free T4 1.99 uIU/mL (0.32-4.0)
== END 2023-09-05 13:55 | disposition home or self-care (01) ==
LOC: HO.LAB 13:54
PROVIDERS: PCP Internal Medicine; Visit Provider Internal Medicine Hypertension Specialist
DX: E11.22 Type 2 diabetes mellitus with diabetic chronic kidney disease (principal); D63.1 Anemia in chronic kidney disease; N18.4 Chronic kidney disease, stage 4 (severe); Z79.4 Long term (current) use of insulin
CPT/HCPCS: 36415; 80048; 84443; 85025; 99212

== ENCOUNTER 2023-09-05 13:54 | Outpatient (AMB) | payer OTHER, SELFPAY ==
[2023-09-05 14:12] VITALS: BP 138/64; PULSE 102; O2SAT 87; BMI 41.9
--- NOTE | 2023-09-05 14:12 | HO.NEPHOV_ITS ---
Vital Signs 09/05/23 14:12 Height 5 ft 2 in Weight 229 lb BMI 41.9 BP 138/64 Blood Pressure Location Rt brachial Position Sitting Pulse 102 H Pulse Source Pulse Oximeter Pulse Oximetry (%) 87 L Oxygen Delivery Method Room Air Intake Visit Reasons: CKD/ Confirmed Digital Marketing Specialist Required: No Accompanied by: Daughter Allergies lactose Allergy (Intermediate, Verified 09/05/23 14:22) Vomiting amlodipine Allergy (Mild, Verified 09/05/23 14:22) leg edema liraglutide [From VICTOZA] Allergy (Mild, Verified 09/05/23 14:22) VOMITING RUBI HPI Comments Details: 62-year-old woman with a history of longstanding hypertension diabetes mellitus and obesity with CKD. She was accompanied by her daughter.Denies any new complaints. No urinary symptoms. She recently had an episode of gout and she completed a short course of colchicine. 09/05/23 Accompanied by daughter Still has edema No dyspnea K was 2.6 on 08/20/23 !! PFSH Medical History Restrictive lung disease CKD (chronic kidney disease) stage 4, GFR 15-29 ml/min Right hemiparesis Cerebrovascular accident (CVA) due to occlusion of left middle cerebral artery Skin lesion Lumbar degenerative disc disease CKD (chronic kidney disease) BRYNN (obstructive sleep apnea) Arthritis Hypercholesteremia CAD (coronary artery disease) Sinusitis Stroke Asthma Hypertension Diabetes Surgical History History of esophagogastroduodenoscopy (EGD) H/O colonoscopy History of bilateral tubal ligation History of heart surgery History of coronary angioplasty with insertion of stent History of cataract surgery H/O right breast biopsy Family History Father Stroke Mother Myocardial infarction Paternal Uncle Cancer Family/Other Breast cancer Social History Household Members: Family Housing: House Are you a primary senior caregiver to a significant other at home: No Alcohol intake: never Comment: family at bedside Patient Tobacco Use Status: Never used Tobacco e-Cigarette/Vaping Use: Never Used Second Hand Smoke Exposure: No Advance Directives Date on File: 01/25/22 service: No Current occupational status: unemployed and disabled Sexual orientation: Straight/Heterosexual Gender identity: Female Cognitive needs: Yes Hearing needs: No Vision needs: No Female Reproductive History Menstrual Age of Menarche: 14 Physical Exam Vital Signs: Last Vital Signs Pulse 102 H 09/05/23 14:12 BP 138/64 09/05/23 14:12 Pulse Ox 87 L 09/05/23 14:12 Oxygen Delivery Method Room Air 09/05/23 14:12 BMI result Body Mass Index 41.9 Const General: comfortable Nutritional Appearance: well nourished Orientation/consciousness: patient oriented x3 HEENT Head: No normal to inspection Mouth: moist mucous membranes Neck Neck: Yes supple and Yes no JVD Resp Auscultation: clear to auscultation bilaterally, no rales and rub present Cardio Jugular venous distension: no JVD Palpation: no palpable S3 and no palpable S4 Heart sounds: no rubs GI Palpation (GI): Soft to palpation and nontender Percussion: No Fluid wave present General: Yes no CVA tenderness Back/Spine/Pelvis Back: no CVA tenderness Skin General skin exam: no rashes or lesions noted Neuro General: patient oriented x3 Extrem General: Yes no pedal edema and No clubbing Results Reviewed Nephrology Results: Hgb 13.3 g/dl (12.0-16.0) 08/22/23 WBC 6.1 X10*3/uL (4.8-10.8) 08/22/23 Plt Count 259 X10*3/uL (160-400) 08/22/23 Sodium 138 mmol/L (135-145) 08/22/23 Potassium 2.6 mmol/L (3.3-5.1) L* 08/22/23 Chloride 96 mmol/L (96-108) 08/22/23 Carbon Dioxide 32 mmol/L (22-29) H 08/22/23 BUN 32 mg/dL (9-16) H 08/22/23 Creatinine 2.23 mg/dL (0.5-1.4) H 08/22/23 Calcium 9.5 mg/dL (8.4-10.2) 08/22/23 Assessment & Plan Assessment & Plan (1) CKD (chronic kidney disease) stage 4, GFR 15-29 ml/min: Code(s): N18.4 - Chronic kidney disease, stage 4 (severe) Category: Medical (2) Anemia: Code(s): D64.9 - Anemia, unspecified Category: Medical (3) CKD (chronic kidney disease) stage 3, GFR 30-59 ml/min: Code(s): N18.30 - Chronic kidney disease, stage 3 unspecified Category: Medical Plan: Chronic kidney disease in the setting of longstanding hypertension obesity and diabetes mellitus. Renal function : creatinine increased from 1.8 mg/dL. to 2.2 K was low at 2.6 on 08/21; This was not replaced Will check today Goal is to slow the progression of disease. Continue to avoid nephrotoxic agents. We discussed importance of tight control of blood pressure and blood sugar. She will benefit from weight loss as well. Continue Farxiga for renal protection (4) Type 2 diabetes mellitus, with long-term current use of insulin: Code(s): E11.9 - Type 2 diabetes mellitus without complications; Z79.4 - [facility] (current) use of insulin Category: Medical Plan: Goal A1c less than 7% She follows with Endocrinology Dr. Shirley Plan Anemia due to CKD causing erythropoietin deficiency. No absolute indication for Epogen yet. I will monitor hemoglobin and initiate therapy as indicated. Orders: Orders Basic Metabolic Panel Today N18.30 - Chronic kidney disease, stage 3 unspecified Complete Blood Count Auto Diff Today N18.30 - Chronic kidney disease, stage 3 unspecified Coding Level of Care Code Est Pt Level 4 (28952) Diagnoses CKD (chronic kidney disease) stage 4, GFR 15-29 ml/min N18.4 Anemia D64.9 CKD (chronic kidney disease) stage 3, GFR 30-59 ml/min N18.30 Type 2 diabetes mellitus, with long-term current use of insulin E11.9; Z79.4
== END 2023-09-05 14:37 | disposition home or self-care (01) ==
PROVIDERS: PCP Internal Medicine; Visit Provider Internal Medicine Hypertension Specialist
DX: N18.4 Chronic kidney disease, stage 4 (severe) (principal); D64.9 Anemia, unspecified; N18.30 Chronic kidney disease, stage 3 unspecified; E11.9 Type 2 diabetes mellitus without complications; Z79.4 Long term (current) use of insulin
CPT/HCPCS: 99214

== ENCOUNTER → 2023-09-13 23:59 | Outpatient (BNV) | payer OTHER, SELFPAY ==
--- NOTE | 2023-09-22 11:37 | MHC.OFFVIS ---
Intake Visit Reasons: Remote Cardi[facility]- [facility] Allergies lactose Allergy (Intermediate, Verified 09/19/23 12:57) Vomiting amlodipine Allergy (Mild, Verified 09/19/23 12:57) leg edema liraglutide [From VICTOZA] Allergy (Mild, Verified 09/19/23 12:57) VOMITING RUBI PFSH Medical History Restrictive lung disease CKD (chronic kidney disease) stage 4, GFR 15-29 ml/min Right hemiparesis Cerebrovascular accident (CVA) due to occlusion of left middle cerebral artery Skin lesion Lumbar degenerative disc disease CKD (chronic kidney disease) BRYNN (obstructive sleep apnea) Arthritis Hypercholesteremia CAD (coronary artery disease) Sinusitis Stroke Asthma Hypertension Diabetes Surgical History History of esophagogastroduodenoscopy (EGD) H/O colonoscopy History of bilateral tubal ligation History of heart surgery History of coronary angioplasty with insertion of stent History of cataract surgery H/O right breast biopsy Family History Father Stroke Mother Myocardial infarction Paternal Uncle Cancer Family/Other Breast cancer Social History Household Members: Family Housing: House Are you a primary cardiac care unit nurse to a significant other at home: No Alcohol intake: never Comment: family at bedside Patient Tobacco Use Status: Never used Tobacco e-Cigarette/Vaping Use: Never Used Second Hand Smoke Exposure: No Advance Directives Date on File: 01/25/22 service: No Current occupational status: unemployed and disabled Sexual orientation: Straight/Heterosexual Gender identity: Female Cognitive needs: Yes Hearing needs: No Vision needs: No Female Reproductive History Menstrual Age of Menarche: 14 Office Procedures Cardiac Device Check Cardiac Device Check Details: Monitoring period dates: 08/13/23 -09/12/23 Optimal PA pressure range:LOREN goal 30mmhg Procedure code: 71613 BACKGROUND: Anna is implanted with the CardioMEMS PA Sensor.? I use this technology to monitor PA pressures on a weekly basis to ensure patients are within their optimal range to prevent decompensation.? SUMMARY:? I utilized the remote monitoring platform (kenxus) to set optimal targets for pulmonary artery pressure thresholds as part of acute and chronic management of patient?s heart failure. During the period indicated above, I monitored the patient?s pulmonary artery pressures weekly via trend analysis and notification reports which provide alerts when patient?s PA pressures were outside of range to prompt immediate action in medication changes and communications.? The weekly reports are archived in the kenxus system which serve as a parallel record to document weekly PA pressures, medication changes, and clinical notes. I have reviewed readings on 08/15, 08/22, 08/29, 09/04, 09/11. Her LOREN has ranged between 27-38mmhg. Her diuretic has been adjusted as needed for elevated readings. Feeling well overall. 52988 - Remote monitoring of wireless pulmonary artery pressure sensor Procedure code (CPT) selection complete Quality Reporting (2019) Adult ([facility] 13806/22/68) Smoking risk assessment performed?: Yes Patient Tobacco Use Status: Never used Tobacco Assessment & Plan Assessment & Plan (1) Presence of CardioMEMS HF system: Code(s): Z95.818 - Presence of other cardiac implants and grafts Category: Medical Plan: monthly report Coding Level of Care Code Procedure Only Diagnoses Presence of CardioMEMS HF system Z95.818 CPT Codes Cardiac Device Check - Cardiac Device 17: 00262 - Remote monitoring of wireless pulmonary artery pressure sensor ([id number])
== END ==
PROVIDERS: PCP Internal Medicine; Visit Provider Nurse Practitioner Family
DX: Z45.09 Encounter for adjustment and management of other cardiac device (principal)
CPT/HCPCS: 93264

== ENCOUNTER 2023-09-19 12:41 | Outpatient (AMB) | payer OTHER, SELFPAY ==
--- NOTE | 2023-09-19 12:54 | A.OFFVIS_ITS ---
Intake Visit Reasons: f/u s/p ART U/S 08/02 Intake Note: Patient presents for arterial us follow up. Patient states she has bilateral swelling and pain. Allergies lactose Allergy (Intermediate, Verified 09/19/23 12:57) Vomiting amlodipine Allergy (Mild, Verified 09/19/23 12:57) leg edema liraglutide [From VICTOZA] Allergy (Mild, Verified 09/19/23 12:57) VOMITING RUBI HPI HPI f/u s/p ART U/S 08/02: Details: Very pleasant 63-year-old female presents for routine surveillance follow-up regarding peripheral vascular disease. She had endovascular intervention back in January of 2022 on the right lower extremity. She reports that the right leg is doing fairly well. Her concern at the current time is the left leg. She is barely able to walk a block. She does complain of left thigh and calf cramping. She now presents for follow-up with noninvasive testing. [facility] Medical History Restrictive lung disease CKD (chronic kidney disease) stage 4, GFR 15-29 ml/min Right hemiparesis Cerebrovascular accident (CVA) due to occlusion of left middle cerebral artery Skin lesion Lumbar degenerative disc disease CKD (chronic kidney disease) BRYNN (obstructive sleep apnea) Arthritis Hypercholesteremia CAD (coronary artery disease) Sinusitis Stroke Asthma Hypertension Diabetes Surgical History History of esophagogastroduodenoscopy (EGD) H/O colonoscopy History of bilateral tubal ligation History of heart surgery History of coronary angioplasty with insertion of stent History of cataract surgery H/O right breast biopsy Family History Father Stroke Mother Myocardial infarction Paternal Uncle Cancer Family/Other Breast cancer Social History Household Members: Family Housing: House Are you a primary rn transitional care to a significant other at home: No Alcohol intake: never Comment: family at bedside Patient Tobacco Use Status: Never used Tobacco e-Cigarette/Vaping Use: Never Used Second Hand Smoke Exposure: No Advance Directives Date on File: 01/25/22 service: No Current occupational status: unemployed and disabled Sexual orientation: Straight/Heterosexual Gender identity: Female Cognitive needs: Yes Hearing needs: No Vision needs: No Female Reproductive History Menstrual Age of Menarche: 14 Review of Systems Const All systems reviewed & are unremarkable except as noted in HPI and below Reports no additional complaints ENT Reports Normal hearing present Card Denies chest pain, Denies chest pain at rest, Denies chest pain with activity and Denies pedal edema Resp Denies cough GI Denies abdominal pain Musc Denies abnormal gait, Denies muscle cramps and Denies radiating pain into limb Skin/Breast Denies skin ulcer and Denies wounds Neuro Reports Normal hearing present and Denies abnormal gait Psych Reports no additional complaints Physical Exam Const General: cooperative, healthy appearing and comfortable Orientation/consciousness: oriented to person, oriented to place and oriented to time HEENT Head: Yes normal to inspection Neck Neck: Yes normal visual inspection Carotids: no bruits Chest Chest palpation & inspection: normal inspection of the chest Resp Effort & Inspection: normal respiratory effort and able to speak in complete sentences Auscultation: clear to auscultation bilaterally, no crackles, no rales, no rhonchi and no wheezes Cardio Other: Bilateral DP signals Rate: regular rate Rhythm: regular rhythm Heart sounds: S1 normal heart sound present and S2 normal heart sound present Bruits: no carotid bruits Peripheral pulses: Peripheral pulses 2+ throughout GI Inspection: Yes normal to inspection Skin Wounds: no wounds Hair: normal Neuro General: oriented to person, oriented to place and oriented to time Cranial nerves: Yes CN's II-XII intact bilaterally and Yes Normal hearing present Cognition (Neuro): normal cognition Motor exam (neuro): 5/5 motor strength present throughout Extrem Other: venous exam: No significant superficial varicosities or spider telangiectasias, minimal edema General: No clubbing, No cyanosis and No edema Psych Appearance: grossly normal Mental Status: mental status grossly normal Speech and movement: Normal speech and movement present Quality Reporting (2019) Adult ([facility] 13806/22/68) Smoking risk assessment performed?: Yes Patient Tobacco Use Status: Never used Tobacco Results Reviewed Results Reviewed: Noninvasive arterial testing demonstrates BART on the right of 0.7 and on the left of 0.48 there is concern of inflow and outflow disease on the left. Testing dated 08/03/2023 written report and images were reviewed. Assessment & Plan Assessment & Plan (1) PVD (peripheral vascular disease): Comment: 02/17/2022 - right SFA atherectomy and plasty. Code(s): I73.9 - Peripheral vascular disease, unspecified Category: Medical Plan: Patient notes leg pain when walking distances. I have discussed the pathophysiology of peripheral vascular disease with the patient. I have also discussed risk factor modification. I have reviewed the patient's arterial testing which reveals left BART of 0.48 with concerns of inflow and outflow disease. the patient would benefit from a left leg endovascular peripheral angiogram with possible angioplasty, stent, and/or atherectomy. This has been discussed in detail with the patient along with risks, benefits, and complications. This includes but is not limited to bleeding, infection, heart attack, need for emergent surgical repair, limb ischemia, blood vessel damage, bleeding, puncture, kidney injury, bruising, allergic reaction, and skin reaction. The patient demonstrates a clear understanding. We will schedule for the next appropriate time. Thank you for allowing us to assist in this patient's care. Coding Level of Care Code Est Pt Level 4 (21268) Diagnoses PVD (peripheral vascular disease) I73.9
== END 2023-09-19 13:51 | disposition home or self-care (01) ==
PROVIDERS: PCP Internal Medicine; Visit Provider Surgery Vascular Surgery
DX: I73.9 Peripheral vascular disease, unspecified (principal)
CPT/HCPCS: 99214

== ENCOUNTER → 2023-09-19 12:41 | Outpatient (BNVA) | payer OTHER, SELFPAY | PROVIDERS: PCP Internal Medicine; Visit Provider Surgery Vascular Surgery | DX: I73.9 Peripheral vascular disease, unspecified (principal) | CPT/HCPCS: 99212 ==

== ENCOUNTER → 2023-09-26 12:38 | Outpatient (REF) | payer OTHER, SELFPAY ==
--- NOTE | 2023-09-26 12:40 | CA_ITS ---
Transthoracic Echocardiogram Patient (Last, First, Middle): Anna Mead L Gender: Female Date of : 1960 Age: 63 Procedure Date: 09/26/2023 Procedure Type: Transthoracic Echocardiogram Location: OP Height: 157.48 cm Weight: 99.79 kg BSA: 1.99 m2 Heart Rate: bpm BP: 110 / 58 mmHg Physician: TO Referring MD: Brandon Horton MD Symptoms: I50.32 - Chronic diastolic (congestive) heart failure Study Quality: Fair/Contrast Conclusions: - The left ventricular systolic function is mildly decreased. The calculated ejection fraction is 50% by biplane method. - Evidence suggests grade II (moderate) diastolic dysfunction. - The basal inferior segment is akinetic. - No obvious valvular pathology seen on this study. Findings Procedure Information Contrast agent, definity, is being given per protocol without apparent complications. Left Ventricle Normal left ventricular cavity size. The left ventricular systolic function is mildly decreased. The calculated ejection fraction is 50% by biplane method. Evidence suggests grade II (moderate) diastolic dysfunction. There is mild septal asymmetric hypertrophy. Wall Motion Rest Echo Findings The basal inferior segment is akinetic. Right Ventricle Normal right ventricular cavity size. There is mildly decreased right ventricular systolic function. Atria Both atria are normal in size. Aortic Valve There is a normal trileaflet aortic valve. There is no aortic valve stenosis. There is no aortic valve regurgitation. Mitral Valve There is mild mitral annular calcification. There is no mitral valve regurgitation. There is no mitral valve stenosis. Pulmonic Valve The pulmonic valve is likely normal. Tricuspid Valve There is trace tricuspid valve regurgitation. There is no evidence of pulmonary hypertension. Great Vessels The asc aorta is normal in size. Venous The inferior vena cava was not well visualized. The inferior vena cava is normal in size. Pericardium/Pleural There is no evidence of pericardial effusion. Prior Study Comparison Changes noted compared to prior study dated: 06/29/2022. Decrease in LVEF. Recommendations, Care & Conclusions No obvious valvular pathology seen on this study. Measurements 2D Linear Measurements IVSd: 1.10 0.6-0.9/0.6-1.0 cm LVIDd: 4.57 3.9-5.3/4.2-5.9 cm LVIDd Index: 2.30 2.4-3.2/2.2-3.1 cm/m2 LVIDs: 3.21 2.0-3.6 cm LVPWd: 0.93 0.7-1.1 cm LA Diam: 4.50 2.7-3.8/3.0-4.0 cm LAIDs Index: 2.26 1.5-2.3 cm/m2 LV Mass: 199.46 67-162/88-224 g LV Mass Index: 100.23 43-95/49-115 g/m2 LVOT Diam: 2.20 3.0+(-)1.3 cm 2D Systolic Function EF 4C: 49.50 >55% EF 2C: 47.40 >55% EF BiP: 49.90 >55% Mitral Valve MV VTI: 0.36 MV Pk Zen: 1.36 MV Mn Zen: 0.71 MV Pk Grad: 7.00 MV Mn Grad: 2.00 MV Pk E: 1.17 MV PK A: 0.59 MV Decel Time: 211.00 E/A: 2.00 E'Lateral: 5.66 E'Medial: 5.22 E/E' Med: 22.40 E/E' Lat: 20.70 PHT: 62.00 MVA PHT: 3.55 MVA Continuity: 2.26 Decel Rabun: 5.54 Aortic Valve AoV Pk Zen: 1.47 AoV Mn Zen: 1.05 AoV VTI: 0.34 AoV Pk Grad: 9.00 Aov Mn Grad: 5.00 MANDEEP Cont.VTI: 2.43 LVOT LVOT Pk Zen: 0.83 LVOT Mn Zen: 0.62 LVOT VTI: 0.22 LVOT Pk Grad: 3.00 LVOT Mn Grad: 2.00 LVOT Diam: 2.20 LVOT Area: 3.80 Diastolic Function MV Pk E: 1.17 MV Pk A: 0.59 E/A: 2.00 E'Medial: 5.22 E/E' Med: 22.40 E' Laterial: 5.66 E/E' Lat: 20.70 Right Ventricle TAPSE (mm): 16.00 TVS' Zen: 6.53 Tricuspid Valve TR Pk Zen: 2.59 TR Pk Grad: 27.00 RA Press: 3.00 RVSP: 30.00 Great Vessels Aorta Sinus of Valsalva: 3.32 2.0-3.5 cm Ao Asc: 3.40 2.1-3.4 cm Updated in Other Vendor System with Status of Final Vishnu Torres MD electronically signed on 09/27/2023 11:35:37 AM with status of Final
== END ==
LOC: HO.CARD 12:38
PROVIDERS: PCP Internal Medicine; Visit Provider Internal Medicine Cardiovascular Disease
DX: I50.32 Chronic diastolic (congestive) heart failure (principal)
CPT/HCPCS: 93306; Q9957

== ENCOUNTER → 2023-09-26 12:40 | Outpatient (BNV) | payer OTHER, SELFPAY | PROVIDERS: PCP Internal Medicine; Visit Provider Internal Medicine | DX: I50.32 Chronic diastolic (congestive) heart failure (principal) | CPT/HCPCS: 93306 ==

== ENCOUNTER 2023-10-03 13:33 | Outpatient (AMB) | payer OTHER, SELFPAY ==
--- NOTE | 2023-10-03 13:36 | MHC.OFFVIS ---
Vital Signs 10/03/23 13:37 Height 5 ft 2 in Weight 227 lb 1.218 oz BMI 41.5 BP 136/82 Blood Pressure Location Lt brachial Position Sitting Pulse 93 Intake Visit Reasons: 6 mth s/p echo Intake Note: 6 month follow-up with ekg with echo resultfeeling good Polyethylene Bag Machine Operator Required: Yes Polyethylene Bag Machine Operator Name: daughter signed Apartment Rental Agent: Apartment Rental Agent Present Accompanied by: Daughter Allergies lactose Allergy (Intermediate, Verified 09/19/23 12:57) Vomiting amlodipine Allergy (Mild, Verified 09/19/23 12:57) leg edema liraglutide [From VICTOZA] Allergy (Mild, Verified 09/19/23 12:57) VOMITING RUBI Medication List - Last Reconciled 10/03/23 by Brandon Horton MD albuterol sulfate 90 mcg/actuation 2 puffs inhalation Q6H PRN 30 days amitriptyline 25 mg PO BEDTIME apixaban (Eliquis) 5 mg PO BID 90 days ascorbic acid (vitamin C) (Vitamin C With Allie Hips) 500 mg PO DAILY 90 days blood sugar diagnostic As directed cholecalciferol (vitamin D3) 50 mcg PO DAILY 90 days clopidogrel (Plavix) 75 mg PO DAILY clotrimazole 1% 1 appl topical BID 4 weeks commode As directed dapagliflozin propanediol (Farxiga) 10 mg PO DAILY ferrous sulfate 325 mg PO DAILY furosemide 40 mg PO BID gabapentin 300 mg PO BID hydralazine 25 mg PO BID insulin regular hum U-500 conc 0 - 450 units subcut DAILY PRN lactulose 10 grams (15 mL) PO BEDTIME PRN 30 days metoprolol tartrate 50 mg (2 x 25 mg) PO BID 90 days [pulse oximeter As directed] rosuvastatin 40 mg PO DAILY 90 days sennosides (Senna Laxative) 17.2 mg (2 x 8.6 mg) PO BEDTIME PRN 30 days Shower Chair As directed walker with seat and wheels HPI Comments Details: Anna comes for follow-up. He has been closely being monitored on CardioMEMS by our office. She is been advised on a weekly basis as to her diuretic regimen. She has not had any major hospitalization related to decompensated congestive heart failure although pressures are high. She denies any worsening shortness of breath, orthopnea, PND. Denies any exertional chest pain. Most recent echocardiogram showed mildly decreased LV ejection fraction about 50% with inferior wall motion abnormality with grade 2 diastolic dysfunction. She denies any prolonged palpitation irregular heartbeat. No bleeding issues or neurologic events. Takes all her medications regularly. Remains active. [facility] Medical History Restrictive lung disease CKD (chronic kidney disease) stage 4, GFR 15-29 ml/min Right hemiparesis Cerebrovascular accident (CVA) due to occlusion of left middle cerebral artery Skin lesion Lumbar degenerative disc disease CKD (chronic kidney disease) BRYNN (obstructive sleep apnea) Arthritis Hypercholesteremia CAD (coronary artery disease) Sinusitis Stroke Asthma Hypertension Diabetes Surgical History History of esophagogastroduodenoscopy (EGD) H/O colonoscopy History of bilateral tubal ligation History of heart surgery History of coronary angioplasty with insertion of stent History of cataract surgery H/O right breast biopsy Family History Father Stroke Mother Myocardial infarction Paternal Uncle Cancer Family/Other Breast cancer Social History Household Members: Family Housing: House Are you a primary day care home provider to a significant other at home: No Alcohol intake: never Comment: family at bedside Patient Tobacco Use Status: Never used Tobacco e-Cigarette/Vaping Use: Never Used Second Hand Smoke Exposure: No Advance Directives Date on File: 01/25/22 service: No Current occupational status: unemployed and disabled Sexual orientation: Straight/Heterosexual Gender identity: Female Cognitive needs: Yes Hearing needs: No Vision needs: No Female Reproductive History Menstrual Age of Menarche: 14 Review of Systems Const Denies chills, Denies fatigue, Denies fever(s), Denies frequent falls, Denies weakness, Denies weight gain and Denies weight loss ENT Denies dizziness Card Denies chest pain, Denies leg edema, Denies lightheadedness, Denies palpitations, Denies dyspnea, Denies dyspnea on exertion, Denies orthopnea and Denies other (loss of consciousness) Resp Denies cough, Denies dyspnea and Denies dyspnea on exertion GI Denies hematochezia and Denies change in stool character Musc Denies abnormal gait, Denies muscle weakness, Denies numbness, Denies radiating pain into limb and Denies tingling Neuro Denies abnormal gait, Denies dizziness, Denies frequent falls, Denies numbness, Denies tingling and Denies weakness Endo Denies fatigue and Denies palpitations Physical Exam Vital Signs: Last Vital Signs Pulse 93 10/03/23 13:37 BP 136/82 10/03/23 13:37 BMI result Body Mass Index 41.5 Const General: cooperative, comfortable, no acute distress, alert, awake and in distress mild and other (Due to pain) Nutritional Appearance: obese Orientation/consciousness: patient oriented x3 Limitations: ambulation with walker Neck Neck: Yes trachea midline, Yes supple and Yes no JVD Resp Effort & Inspection: normal respiratory effort Auscultation: clear to auscultation bilaterally Cardio Jugular venous distension: no JVD Palpation: normal PMI Rate: regular rate Rhythm: regular rhythm Heart sounds: S1 normal heart sound present and S2 normal heart sound present Skin General skin exam: no rashes or lesions noted Neuro General: patient oriented x3 and no focal motor deficits Extrem General: No clubbing, No cyanosis, No edema and Yes other (Swollen left metacarpal joint) Office Procedures EKG Details: EKG shows left bundle-branch block with unusual P wave axis which could represent ectopic atrial rhythm or sinus rhythm with first-degree AV block. 50685-[id number], Complete Quality Reporting (2019) Adult ([facility] ) Smoking risk assessment performed?: Yes Patient Tobacco Use Status: Never used Tobacco Assessment & Plan Assessment & Plan (1) Chronic heart failure with preserved ejection fraction (HFpEF): Code(s): I50.32 - Chronic diastolic (congestive) heart failure Category: Medical Plan: Heart failure preserved ejection fraction difficult to control with CardioMEMS device which is been monitored regularly in the office with directed therapy. She is done very well with avoidance of hospitalization the last many months. Continue the same. Her renal function has improved with creatinine of 1.55. Continue aggressive diuretic therapy along with dapagliflozin and aggressive blood pressure control. Encouraged to participate in regular physical activity as tolerated. Continue participate in CPAP therapy. Continue rhythm control approach. Overall risk of recurrent hospitalization is elevated given her multiple comorbidities. (2) CAD (coronary artery disease): Code(s): I25.10 - Atherosclerotic heart disease of [place] coronary artery without angina pectoris Category: Medical Plan: CAD with prior stenting as well as coronary artery bypass grafting. Currently without any symptoms of angina. Will pursue myocardial perfusion imaging in 6 months to assess for graft patency. Continue aggressive risk factor modification. Currently on full oral anticoagulation Eliquis and will avoid aspirin therapy to reduce bleeding risk. Continue aggressive blood pressure control which is currently well optimized importance of good blood pressure control was discussed. Aggressive diabetes management goal hemoglobin A1c less than 7%. Continue high-intensity statin therapy with target goal LDL less than 70 mg/dL. (3) Paroxysmal atrial fibrillation: Code(s): I48.0 - Paroxysmal atrial fibrillation Category: Medical Plan: Paroxysmal atrial fibrillation without any obvious clinical recurrence. Continue to monitor. Advised to call me with new symptoms. No antiarrhythmic drug therapy recommended at this point time. Continue metoprolol therapy. Avoidance of stimulants was discussed. Continue full oral anticoagulation, currently on Eliquis 5 mg b.i.d.. Quarterly renal function test should be pursued. Follow up in the clinic in 6 months time, sooner p.r.n.. Thank you for allowing me to partake in the care Orders: Orders CA lexiscan stress w nicole Today I25.10 - Atherosclerotic heart disease of [place] coronary artery without angina pectoris Coding Level of Care Code Est Pt Level 4 (76185) Diagnoses Chronic heart failure with preserved ejection fraction (HFpEF) I50.32 CAD (coronary artery disease) I25.10 Paroxysmal atrial fibrillation I48.0 CPT Codes EKG - CPT: 50760-[id number], Complete ([id number])
[2023-10-03 13:37] VITALS: BP 136/82; PULSE 93; BMI 41.5
== END 2023-10-03 14:02 | disposition home or self-care (01) ==
PROVIDERS: PCP Internal Medicine; Visit Provider Internal Medicine Cardiovascular Disease
DX: I50.32 Chronic diastolic (congestive) heart failure (principal); I25.10 Atherosclerotic heart disease of native coronary artery without angina pectoris; I48.0 Paroxysmal atrial fibrillation
CPT/HCPCS: 93010; 99214

== ENCOUNTER → 2023-10-03 13:33 | Outpatient (BNVA) | payer OTHER, SELFPAY | PROVIDERS: PCP Internal Medicine; Visit Provider Internal Medicine Cardiovascular Disease | DX: I50.32 Chronic diastolic (congestive) heart failure (principal); I25.10 Atherosclerotic heart disease of native coronary artery without angina pectoris; I48.0 Paroxysmal atrial fibrillation; Z79.01 Long term (current) use of anticoagulants; Z79.899 Other long term (current) drug therapy | CPT/HCPCS: 93005; 99212 ==

== ENCOUNTER 2023-10-17 13:14 | Outpatient (REF) | payer OTHER, SELFPAY ==
[2023-10-17 14:29] LABS: MANUAL DIFF FLAG NO
[2023-10-17 15:07] LABS: Basophils Percent Auto 0.6 % (0-2); Eosinophils Absolute Auto 0.2 X10*3/uL (0.0-0.4); Eosinophils Percent Auto 2.8 % (0-4); Hemoglobin 12.5 g/dl (12.0-16.0); Imm Gran Abs Auto 0.02 X10*3/uL (0.00-0.03); Imm Gran Pct Auto 0.3 % (0.0-0.4); Lymphocytes Absolute Auto 2.2 X10*3/uL (1.2-4.9); Lymphocytes Percent Auto 30.4 % (20-40); Mean Corpuscular HGB Conc 32.1 g/dl (31.0-35.0); Mean Corpuscular Hemoglobin 29.3 pg (27.0-33.0); Mean Corpuscular Volume 91.5 fL (80.0-98.0); Mean Platelet Volume 11.6 fL (9.4-12.3); Monocytes Absolute Auto 0.6 X10*3/uL (0.1-1.2); Monocytes Percent Auto 8.8 % (2-11); Neutrophils Absolute Auto 4.1 x10*3/uL (2.0-8.3); Neutrophils Percent Auto 57.1 % (45-73); Platelet Count 202 X10*3/uL (160-400); Red Blood Count 4.26 X10*6/uL (4.20-5.50); Red Cell Distribution Width 15.4 % (11.0-16.0); White Blood Count 7.2 X10*3/uL (4.8-10.8)
[2023-10-17 15:28] LABS: Alanine Aminotransferase 26 U/L (0-31); Albumin Level 3.5 g/dL (3.5-5.0); Alkaline Phosphatase 70 U/L (39-117); Anion Gap 10 (12-20); Aspartate Amino Transferase 27 U/L (5-31); Bilirubin Total 0.3 mg/dL (0.0-1.0); Blood Urea Nitrogen 18 mg/dL (9-16); Calcium 10.1 mg/dL (8.4-10.2); Carbon Dioxide 37 mmol/L (22-29); Chloride 97 mmol/L (96-108); Estimated Glomerular Filt Rate 32; Glucose Random 223 mg/dL (60-115); Sodium 140 mmol/L (135-145); Total Protein 7.5 g/dL (6.5-8.0); Uric Acid 8.3 mg/dL (2.4-5.7)
== END 2023-10-17 13:15 | disposition home or self-care (01) ==
LOC: HO.LAB 13:14
PROVIDERS: PCP Internal Medicine; Visit Provider Internal Medicine Hypertension Specialist
DX: E11.22 Type 2 diabetes mellitus with diabetic chronic kidney disease (principal); I12.9 Hypertensive chronic kidney disease with stage 1 through stage 4 chronic kidney disease, or unspecified chronic kidney disease; N18.4 Chronic kidney disease, stage 4 (severe); E66.9 Obesity, unspecified; D64.9 Anemia, unspecified; Z79.4 Long term (current) use of insulin
CPT/HCPCS: 36415; 80053; 84550; 85025; 85027; 99212

== ENCOUNTER 2023-10-17 13:14 | Outpatient (AMB) | payer OTHER, SELFPAY ==
[2023-10-17 13:19] VITALS: BP 122/62; PULSE 63; O2SAT 84; BMI 41.1
--- NOTE | 2023-10-17 13:19 | HO.NEPHOV ---
Vital Signs 10/17/23 13:19 Height 5 ft 2 in Weight 225 lb BMI 41.1 BP 122/62 Blood Pressure Location Rt brachial Position Sitting Pulse 63 Pulse Source Pulse Oximeter Pulse Oximetry (%) 84 L Oxygen Delivery Method Room Air Intake Visit Reasons: CKD/ 6 weeks fu Residential Collections Required: No Accompanied by: Daughter Allergies lactose Allergy (Intermediate, Verified 10/17/23 13:22) Vomiting amlodipine Allergy (Mild, Verified 10/17/23 13:22) leg edema liraglutide [From VICTOZA] Allergy (Mild, Verified 10/17/23 13:22) VOMITING RUBI Medication List - Last Reconciled 10/17/23 by Petar Stevens MD albuterol sulfate 90 mcg/actuation 2 puffs inhalation Q6H PRN 30 days amitriptyline 25 mg PO BEDTIME apixaban (Eliquis) 5 mg PO BID 90 days ascorbic acid (vitamin C) (Vitamin C With Allie Hips) 500 mg PO DAILY 90 days blood sugar diagnostic As directed cholecalciferol (vitamin D3) 50 mcg PO DAILY 90 days clopidogrel (Plavix) 75 mg PO DAILY clotrimazole 1% 1 appl topical BID 4 weeks commode As directed dapagliflozin propanediol (Farxiga) 10 mg PO DAILY ferrous sulfate 325 mg PO DAILY 90 days furosemide 40 mg PO BID gabapentin 300 mg PO BID hydralazine 25 mg PO BID insulin regular hum U-500 conc 0 - 450 units subcut DAILY PRN lactulose 10 grams (15 mL) PO BEDTIME PRN 30 days metoprolol tartrate 50 mg (2 x 25 mg) PO BID 90 days [pulse oximeter As directed] rosuvastatin 40 mg PO DAILY 90 days sennosides (Senna Laxative) 17.2 mg (2 x 8.6 mg) PO BEDTIME PRN 30 days Shower Chair As directed walker with seat and wheels HPI Comments Details: 62-year-old woman with a history of longstanding hypertension diabetes mellitus and obesity with CKD. She was accompanied by her daughter.Denies any new complaints. No urinary symptoms. She recently had an episode of gout and she completed a short course of colchicine. 09/05/23 Accompanied by daughter Still has edema No dyspnea K was 2.6 on 08/20/23 !! 10/17/23: Doing better lost few pounds K was 3.3 PFSH Medical History Restrictive lung disease CKD (chronic kidney disease) stage 4, GFR 15-29 ml/min Right hemiparesis Cerebrovascular accident (CVA) due to occlusion of left middle cerebral artery Skin lesion Lumbar degenerative disc disease CKD (chronic kidney disease) BRYNN (obstructive sleep apnea) Arthritis Hypercholesteremia CAD (coronary artery disease) Sinusitis Stroke Asthma Hypertension Diabetes Surgical History History of esophagogastroduodenoscopy (EGD) H/O colonoscopy History of bilateral tubal ligation History of heart surgery History of coronary angioplasty with insertion of stent History of cataract surgery H/O right breast biopsy Family History Father Stroke Mother Myocardial infarction Paternal Uncle Cancer Family/Other Breast cancer Social History Household Members: Family Housing: House Are you a primary resident care supervisor to a significant other at home: No Alcohol intake: never Comment: family at bedside Patient Tobacco Use Status: Never used Tobacco e-Cigarette/Vaping Use: Never Used Second Hand Smoke Exposure: No Advance Directives Date on File: 01/25/22 service: No Current occupational status: unemployed and disabled Sexual orientation: Straight/Heterosexual Gender identity: Female Cognitive needs: Yes Hearing needs: No Vision needs: No Female Reproductive History Menstrual Age of Menarche: 14 Physical Exam Vital Signs: Last Vital Signs Pulse 63 10/17/23 13:19 BP 122/62 10/17/23 13:19 Pulse Ox 84 L 10/17/23 13:19 Oxygen Delivery Method Room Air 10/17/23 13:19 BMI result Body Mass Index 41.1 Const General: comfortable Nutritional Appearance: well nourished Orientation/consciousness: patient oriented x3 HEENT Head: No normal to inspection Mouth: moist mucous membranes Neck Neck: Yes supple and Yes no JVD Resp Auscultation: clear to auscultation bilaterally, no rales and rub present Cardio Jugular venous distension: no JVD Palpation: no palpable S3 and no palpable S4 Heart sounds: no rubs GI Palpation (GI): Soft to palpation and nontender Percussion: No Fluid wave present General: Yes no CVA tenderness Back/Spine/Pelvis Back: no CVA tenderness Skin General skin exam: no rashes or lesions noted Neuro General: patient oriented x3 Extrem General: Yes no pedal edema and No clubbing Results Reviewed Nephrology Results: Hgb 12.7 g/dl (12.0-16.0) 09/05/23 WBC 7.9 X10*3/uL (4.8-10.8) 09/05/23 Plt Count 180 X10*3/uL (160-400) 09/05/23 Sodium 141 mmol/L (135-145) 09/05/23 Potassium 3.3 mmol/L (3.3-5.1) 09/05/23 Chloride 95 mmol/L (96-108) L 09/05/23 Carbon Dioxide 34 mmol/L (22-29) H 09/05/23 BUN 24 mg/dL (9-16) H 09/05/23 Creatinine 1.55 mg/dL (0.5-1.4) H 09/05/23 Calcium 10.2 mg/dL (8.4-10.2) 09/05/23 Assessment & Plan Assessment & Plan (1) CKD (chronic kidney disease) stage 4, GFR 15-29 ml/min: Code(s): N18.4 - Chronic kidney disease, stage 4 (severe) Category: Medical (2) Anemia: Code(s): D64.9 - Anemia, unspecified Category: Medical (3) CKD (chronic kidney disease) stage 3, GFR 30-59 ml/min: Code(s): N18.30 - Chronic kidney disease, stage 3 unspecified Category: Medical Plan: . Chronic kidney disease in the setting of longstanding hypertension obesity and diabetes mellitus. Renal function : creatinine increased from 1.8 mg/dL. to 2.2 and back to baseline K was low at 2.6 on 08/21; Repeat was 3.3 Recehck TODAY Goal is to slow the progression of disease. Continue to avoid nephrotoxic agents. We discussed importance of tight control of blood pressure and blood sugar. She will benefit from weight loss as well. Continue Farxiga for renal protection (4) Type 2 diabetes mellitus, with long-term current use of insulin: Code(s): E11.9 - Type 2 diabetes mellitus without complications; Z79.4 - retirement (current) use of insulin Category: Medical Plan: . Goal A1c less than 7% She follows with Endocrinology Dr. Casper Ocampo . Anemia due to CKD causing erythropoietin deficiency. No absolute indication for Epogen yet. I will monitor hemoglobin and initiate therapy as indicated. Orders: Orders Complete Blood Count no Diff Today N18.30 - Chronic kidney disease, stage 3 unspecified Comprehensive Met. Panel Today N18.30 - Chronic kidney disease, stage 3 unspecified Coding Level of Care Code Est Pt Level 4 (08132) Diagnoses CKD (chronic kidney disease) stage 4, GFR 15-29 ml/min N18.4 Anemia D64.9 CKD (chronic kidney disease) stage 3, GFR 30-59 ml/min N18.30 Type 2 diabetes mellitus, with long-term current use of insulin E11.9; Z79.4
== END 2023-10-17 13:44 | disposition home or self-care (01) ==
PROVIDERS: PCP Internal Medicine; Visit Provider Internal Medicine Hypertension Specialist
DX: N18.4 Chronic kidney disease, stage 4 (severe) (principal); D64.9 Anemia, unspecified; N18.30 Chronic kidney disease, stage 3 unspecified; E11.9 Type 2 diabetes mellitus without complications; Z79.4 Long term (current) use of insulin
CPT/HCPCS: 99214

== ENCOUNTER → 2023-10-23 23:59 | Outpatient (BNV) | payer OTHER, SELFPAY ==
--- NOTE | 2023-10-31 09:35 | A.OFFVIS_ITS ---
Intake Visit Reasons: Remote [facility]- [facility] Allergies lactose Allergy (Intermediate, Verified 10/27/23 14:34) Vomiting amlodipine Allergy (Mild, Verified 10/27/23 14:34) leg edema liraglutide [From VICTOZA] Allergy (Mild, Verified 10/27/23 14:34) VOMITING RUBI PFSH Medical History Restrictive lung disease CKD (chronic kidney disease) stage 4, GFR 15-29 ml/min Right hemiparesis Cerebrovascular accident (CVA) due to occlusion of left middle cerebral artery Skin lesion Lumbar degenerative disc disease CKD (chronic kidney disease) BRYNN (obstructive sleep apnea) Arthritis Hypercholesteremia CAD (coronary artery disease) Sinusitis Stroke Asthma Hypertension Diabetes Surgical History History of esophagogastroduodenoscopy (EGD) H/O colonoscopy History of bilateral tubal ligation History of heart surgery History of coronary angioplasty with insertion of stent History of cataract surgery H/O right breast biopsy Family History Father Stroke Mother Myocardial infarction Paternal Uncle Cancer Family/Other Breast cancer Social History Household Members: Family Housing: House Are you a primary family day care provider to a significant other at home: No Alcohol intake: never Comment: family at bedside Patient Tobacco Use Status: Never used Tobacco e-Cigarette/Vaping Use: Never Used Second Hand Smoke Exposure: No Advance Directives Date on File: 01/25/22 service: No Current occupational status: unemployed and disabled Sexual orientation: Straight/Heterosexual Gender identity: Female Cognitive needs: Yes Hearing needs: No Vision needs: No Female Reproductive History Menstrual Age of Menarche: 14 Office Procedures Cardiac Device Check Cardiac Device Check Details: Monitoring period dates: 09/13/23 - 10/23/23 Optimal PA pressure range: LOREN goal 30 mmhg Procedure code: 17932 BACKGROUND: Anna is implanted with the CardioMEMS PA Sensor.? I use this technology to monitor PA pressures on a weekly basis to ensure patients are within their optimal range to prevent decompensation.? SUMMARY:? I utilized the remote monitoring platform (Swidjit) to set optimal targets for pulmonary artery pressure thresholds as part of acute and chronic management of patient?s heart failure. During the period indicated above, I monitored the patient?s pulmonary artery pressures weekly via trend analysis and notification reports which provide alerts when patient?s PA pressures were outside of range to prompt immediate action in medication changes and communications.? The weekly reports are archived in the Swidjit system which serve as a parallel record to document weekly PA pressures, medication changes, and clinical notes. I have reviewed readings on 09/14, 09/19, 09/24, 10/01, 10/08. 10/15, 10/22. LOREN has ranged between 29-46mmhg and diuretics adjusted as needed. 97032 - Remote monitoring of wireless pulmonary artery pressure sensor Procedure code (CPT) selection complete Quality Reporting (2019) Adult ([facility] 138/06/22/68) Smoking risk assessment performed?: Yes Patient Tobacco Use Status: Never used Tobacco Assessment & Plan Assessment & Plan (1) Presence of CardioMEMS HF system: Code(s): Z95.818 - Presence of other cardiac implants and grafts Category: Medical Plan: monthly report Coding Level of Care Code Procedure Only Diagnoses Presence of CardioMEMS HF system Z95.818 CPT Codes Cardiac Device Check - Cardiac Device 17: 67686 - Remote monitoring of wireless pulmonary artery pressure sensor ([id number])
== END ==
PROVIDERS: PCP Internal Medicine; Visit Provider Nurse Practitioner Family
DX: Z45.09 Encounter for adjustment and management of other cardiac device (principal)
CPT/HCPCS: 93264

== ENCOUNTER 2023-10-27 14:13 | Outpatient (AMB) | payer OTHER, SELFPAY ==
--- NOTE | 2023-10-27 14:16 | MHC.PC.OV ---
Vital Signs 10/27/23 14:17 Height 5 ft 2 in Weight 224 lb BMI 41.0 BP 130/72 Blood Pressure Location Lt brachial Position Sitting Pulse 89 Pulse Source Pulse Oximeter Pulse Oximetry (%) 95 Oxygen Delivery Method Room Air Intake Visit Reasons: PREOP RIGHT EYE [place] E[facility] Intake Note: Patient is here for a Pre-op for [type of surgery] scheduled with [provider name] on [date]. Allergies lactose Allergy (Intermediate, Verified 10/27/23 14:34) Vomiting amlodipine Allergy (Mild, Verified 10/27/23 14:34) leg edema liraglutide [From VICTOZA] Allergy (Mild, Verified 10/27/23 14:34) VOMITING RBUI Medication List - Last Reconciled 10/27/23 by Kaylyn Hardwick PA-C albuterol sulfate 90 mcg/actuation 2 puffs inhalation Q6H PRN 30 days amitriptyline 25 mg PO BEDTIME apixaban (Eliquis) 5 mg PO BID 90 days ascorbic acid (vitamin C) (Vitamin C With Allie Hips) 500 mg PO DAILY 90 days blood sugar diagnostic As directed cholecalciferol (vitamin D3) 50 mcg PO DAILY 90 days clopidogrel (Plavix) 75 mg PO DAILY clotrimazole 1% 1 appl topical BID 4 weeks commode As directed dapagliflozin propanediol (Farxiga) 10 mg PO DAILY ferrous sulfate 325 mg PO DAILY 90 days furosemide 40 mg PO BID gabapentin 300 mg PO BID hydralazine 25 mg PO BID insulin regular hum U-500 conc 0 - 450 units subcut DAILY PRN lactulose 10 grams (15 mL) PO BEDTIME PRN 30 days metoprolol tartrate 50 mg (2 x 25 mg) PO BID 90 days [pulse oximeter As directed] rosuvastatin 40 mg PO DAILY 90 days sennosides (Senna Laxative) 17.2 mg (2 x 8.6 mg) PO BEDTIME PRN 30 days Shower Chair As directed walker with seat and wheels Tobacco use date assessed: 07/25/23 Dental Screening Dental Screen Date: 07/25/23 HPI PREOP RIGHT EYE [place] EYE HPI Details 62-year-old female with diabetes mellitus type 2, chronic kidney disease, chronic congestive heart failure with preserved ejection fraction, AFib, right hemiparesis secondary to stroke and morbid obesity that comes today for pre-op right eye Vitrectomy surgery. Patient of Dr. Hoover last seen June 2023. Followed by nephrology last seen 10/17/23 patient was considered at baseline for labs, found to be chronically anemic with elevated BUN and Cr. Patient also follows with cardiology last seen 10/03/23 had EKG done in office and will order for myocardial perfusion imaging in 6 months to evaluate for graft patency s/p CABG. Routinely follows with vascular surgery for peripheral vascular. Patient has left leg endovascular peripheral angiogram with possible angioplasty, stent, and/or atherectomy scheduled for 11/01/[address] Baires Today she tells us she has no acute problems. Denies chest pain or shortness of breath but does have chronic leg edema which she follows with Dr. Baires. ?Patient has had general anesthesia in the past and has tolerated it well.? She is currently on anticoagulation with clopidogrel and Eliquis. REPLACED BY [facility] Medical History Restrictive lung disease CKD (chronic kidney disease) stage 4, GFR 15-29 ml/min Right hemiparesis Cerebrovascular accident (CVA) due to occlusion of left middle cerebral artery Skin lesion Lumbar degenerative disc disease CKD (chronic kidney disease) BRYNN (obstructive sleep apnea) Arthritis Hypercholesteremia CAD (coronary artery disease) Sinusitis Stroke Asthma Hypertension Diabetes Surgical History History of esophagogastroduodenoscopy (EGD) H/O colonoscopy History of bilateral tubal ligation History of heart surgery History of coronary angioplasty with insertion of stent History of cataract surgery H/O right breast biopsy Family History Father Stroke Mother Myocardial infarction Paternal Uncle Cancer Family/Other Breast cancer Social History Household Members: Family Housing: House Are you a primary direct care counselor to a significant other at home: No Alcohol intake: never Comment: family at bedside Patient Tobacco Use Status: Never used Tobacco e-Cigarette/Vaping Use: Never Used Second Hand Smoke Exposure: No Advance Directives Date on File: 01/25/22 service: No Current occupational status: unemployed and disabled Sexual orientation: Straight/Heterosexual Gender identity: Female Cognitive needs: Yes Hearing needs: No Vision needs: No Female Reproductive History Menstrual Age of Menarche: 14 Questionnaire Thrive Questionnaire Date Thrive assessed: 07/25/23 AUDIT C Alcohol Use Questionnaire (AUDIT-C) 1. How often do you have a drink containing alcohol?: Never 3. How often do you have six or more drinks on one occasion?: Never Total Score: 0 Score Reviewed/Action Taken: No SILVANA-7 AMB Questionnaire SILVANA-7 Date SILVANA - 7 assessed: 07/25/23 Source: Developed by Drs. Royce Nielsen, Sarah Dunbar, Farhan Bird and colleagues, with an educational amya from [employer]. Review of Systems Const Denies body aches, Denies chills and Denies fever(s) Eyes Details: right eye discomfort ENT Reports no additional complaints Card Denies chest pain, Denies syncope, Denies rapid heart rate, Denies lightheadedness, Denies dyspnea and Denies dyspnea on exertion Resp Denies dyspnea and Denies dyspnea on exertion GI Denies abdominal pain, Reports constipation, Denies diarrhea and Denies vomiting Reports no additional complaints Musc Reports no additional complaints Neuro Details: history of stroke and weakness chronically on the right side. Denies confusion and Denies syncope Psych Reports no additional complaints and Denies confusion Physical exam (Primary Care) Vital Signs: Last Vital Signs Pulse 89 10/27/23 14:17 BP 130/72 10/27/23 14:17 Pulse Ox 95 10/27/23 14:17 Oxygen Delivery Method Room Air 10/27/23 14:17 BMI result Body Mass Index 41.0 Tobacco/Smoking Status: Tobacco use Status Tobacco use date assessed 07/25/23 10/27/23 14:22 Patient Tobacco Use Status Never used Tobacco 10/27/23 14:22 e-Cigarette/Vaping Use Never Used 10/27/23 14:22 Thrive Assessment: Date of Thrive Assessment Date Thrive assessed 07/25/23 10/27/23 14:22 Const General: cooperative and comfortable; No confusion Nutritional Appearance: obese Orientation/consciousness: patient oriented x3 and No confusion HENMT Head: Yes normal to inspection Ears: hearing grossly normal bilaterally, external ears normal and TM's normal bilaterally General nose exam: Normal external nose present Mouth: Normal oral and palatal mucosa present Throat: Yes posterior oropharynx normal Eyes General: appearance normal, both eyes and all related structures Pupils: Equal, round and reactive pupils present EOM: EOMs intact bilaterally Neck Neck: Yes normal visual inspection Lymphatic: no lymphadenopathy noted Resp Effort & Inspection: normal respiratory effort and able to speak in complete sentences Auscultation: clear to auscultation bilaterally, no crackles, no rales, no rhonchi and no wheezes Cardio Rate: regular rate Rhythm: regular rhythm Heart sounds: S1 normal heart sound present and S2 normal heart sound present Peripheral pulses: radial pulses present and dorsalis pedis present GI Inspection: Yes normal to inspection Palpation (GI): Soft to palpation, not firm and nontender Neuro General: patient oriented x3, gait normal (Ambulates with walker) and No confusion Cranial nerves: Yes Equal, round and reactive pupils present and Yes Bilaterally intact EOM present Extrem Other: Bilateral pitting edema Psych Mental Status: mental status grossly normal Affect: normal affect Assessment and Plan Assessment & Plan (1) Pre-op evaluation: Code(s): Z01.818 - Encounter for other preprocedural examination Plan: CBC and electrolytes within normal limits completed 10/17/2023, kidney function labs at baseline and EKG completed 10/03/2023. Regarding preop clearance, the patient is at moderate risk for proposed surgery.? Reviewed with the patient that no surgery is completely free of risk and that this examination is to assist the surgeon in reviewing informed consent. Patient is unsure if procedure is under general anesthesia or local anesthetic. Attempted to reach out to [facility] with no answer. Instructed patient if procedure is under general anesthesia need to discontinue Eliquis and Plavix 7 days prior to surgery, and Farxiga 3 days prior to surgery. If procedure is under local anesthetic no need to discontinue medications. Patient advised to still take blood pressure medication on day of surgery and can hold other medications until after surgery. Medical history significant for diabetes type 2 with insulin use, CKD, PVD, right hemiparesis, lumbar degenerative disc disease, congestive heart failure, hypercholesterolemia among others. Plan Thank you for allowing me to participate in the care of this patient. I personally spent 45 minutes reviewing, examining and charting on this patient. Coding Level of Care Code Est Pt Level 3 (71473) Diagnoses Pre-op evaluation Z01.818
[2023-10-27 14:17] VITALS: BP 130/72; PULSE 89; O2SAT 95; BMI 41.0
== END 2023-10-27 16:50 | disposition home or self-care (01) ==
PROVIDERS: PCP Internal Medicine
DX: E11.9 Type 2 diabetes mellitus without complications (principal); Z01.818 Encounter for other preprocedural examination
CPT/HCPCS: 99213

== ENCOUNTER 2023-10-31 13:34 | Outpatient (AMB) | payer OTHER, SELFPAY ==
--- NOTE | 2023-10-31 14:03 | MHC.OFFVIS ---
Vital Signs 10/31/23 14:04 Height 5 ft 2 in Weight 224 lb 13.944 oz BMI 41.1 BP 120/58 L Blood Pressure Location Lt brachial Position Sitting Pulse 63 Pulse Source Pulse Oximeter Pulse Oximetry (%) 96 Oxygen Delivery Method Room Air Intake Visit Reasons: Obstructive sleep apnea Intake Note: pt is here for follow up and received a new cpap, and has had it little less than a month. Rn Access Required: No Allergies lactose Allergy (Intermediate, Verified 10/31/23 14:24) Vomiting amlodipine Allergy (Mild, Verified 10/31/23 14:24) leg edema liraglutide [From VICTOZA] Allergy (Mild, Verified 10/31/23 14:24) VOMITING RUBI Medication List - Last Reconciled 10/31/23 by Real Slade MD albuterol sulfate 90 mcg/actuation 2 puffs inhalation Q6H PRN 30 days amitriptyline 25 mg PO BEDTIME apixaban (Eliquis) 5 mg PO BID 90 days ascorbic acid (vitamin C) (Vitamin C With Allie Hips) 500 mg PO DAILY 90 days blood sugar diagnostic As directed cholecalciferol (vitamin D3) 50 mcg PO DAILY 90 days clopidogrel (Plavix) 75 mg PO DAILY clotrimazole 1% 1 appl topical BID 4 weeks commode As directed dapagliflozin propanediol (Farxiga) 10 mg PO DAILY ferrous sulfate 325 mg PO DAILY 90 days furosemide 40 mg PO BID gabapentin 300 mg PO BID hydralazine 25 mg PO BID insulin regular hum U-500 conc 0 - 450 units subcut DAILY PRN lactulose 10 grams (15 mL) PO BEDTIME PRN 30 days metoprolol tartrate 50 mg (2 x 25 mg) PO BID 90 days [pulse oximeter As directed] rosuvastatin 40 mg PO DAILY 90 days sennosides (Senna Laxative) 17.2 mg (2 x 8.6 mg) PO BEDTIME PRN 30 days Shower Chair As directed walker with seat and wheels Do you need a note to return to daycare/school/sports/work: No HPI HPI Obstructive sleep apnea: Details: 63 years old Argentine-speaking female, morbidly obese has diagnosis of obstructive sleep apnea, and mild bronchial asthma. She has received new CPAP device since a few weeks ago and is using it regularly. She has a fullface mask, complains that during the night the mask slips on to the sides. However she sleeps well and denies any daytime sleepiness. She does have some bleeding from the right nostril off and on. Breathing has been stable and she uses albuterol only once in a while. [facility] Medical History Restrictive lung disease CKD (chronic kidney disease) stage 4, GFR 15-29 ml/min Right hemiparesis Cerebrovascular accident (CVA) due to occlusion of left middle cerebral artery Skin lesion Lumbar degenerative disc disease CKD (chronic kidney disease) BRYNN (obstructive sleep apnea) Arthritis Hypercholesteremia CAD (coronary artery disease) Sinusitis Stroke Asthma Hypertension Diabetes Surgical History History of esophagogastroduodenoscopy (EGD) H/O colonoscopy History of bilateral tubal ligation History of heart surgery History of coronary angioplasty with insertion of stent History of cataract surgery H/O right breast biopsy Family History Father Stroke Mother Myocardial infarction Paternal Uncle Cancer Family/Other Breast cancer Social History Household Members: Family Housing: House Are you a primary manager respiratory care to a significant other at home: No Alcohol intake: never Comment: family at bedside Patient Tobacco Use Status: Never used Tobacco e-Cigarette/Vaping Use: Never Used Second Hand Smoke Exposure: No Advance Directives Date on File: 01/25/22 service: No Current occupational status: unemployed and disabled Sexual orientation: Straight/Heterosexual Gender identity: Female Cognitive needs: Yes Hearing needs: No Vision needs: No Female Reproductive History Menstrual Age of Menarche: 14 Review of Systems Const All systems reviewed & are unremarkable except as noted in HPI and below Eyes Reports no additional complaints ENT Reports nasal congestion (MILD OFF AND ON) Card Denies chest pain, Reports irregular heart rhythm (PAROXYSMAL ATRIAL FIB) and Denies leg edema Resp Reports as per HPI GI Reports no additional complaints Reports no additional complaints Musc Reports abnormal gait (UNSTABLE ON FEET, USES WALKER FOR STABILITY), Reports back pain and Reports myalgias Skin/Breast Reports system reviewed and no additional complaints, except as documented Neuro Reports abnormal gait (UNSTABLE ON FEET, USES WALKER FOR STABILITY) Psych Reports no additional complaints Endo Reports other (DIABETES MELLITUS) Physical Exam Vital Signs: Last Vital Signs Pulse 63 10/31/23 14:04 BP 120/58 L 10/31/23 14:04 Pulse Ox 96 10/31/23 14:04 Oxygen Delivery Method Room Air 10/31/23 14:04 BMI result Body Mass Index 41.1 Const General: comfortable, no acute distress, alert and awake Orientation/consciousness: patient oriented x3 HEENT Head: Yes normal to inspection General nose exam: No nasal polyps present, No nasal discharge present and Other nasal findings present (Minimal, irritation over the nasal septumon right side is noted,no bleeding) Face and sinus: Yes sinuses nontender Mouth: oropharynx normal Throat: Yes posterior oropharynx normal Eyes General: appearance normal, both eyes and all related structures Neck Neck: Yes normal visual inspection, Yes no lymphadenopathy, Yes trachea midline and Yes no JVD Thyroid: Thyroid normal Chest Chest palpation & inspection: normal inspection of the chest, normal palpation of entire chest wall and no tenderness Resp Other: PERCUSSION NOTE IS BARELY PERCEPTIBLE BECAUSE OF THICK CHEST WALL. BREATH SOUNDS ARE DISTANT BUT EQUAL ON BOTH SIDES. NO WHEEZES CREPITATIONS OR RHONCHI ARE HEARD. Cardio Palpation: normal PMI Rate: regular rate Rhythm: regular rhythm Heart sounds: no gallops and no murmurs GI Palpation (GI): Soft to palpation, nontender, No hepatosplenomegaly present, no masses and Other GI palpation findings present (ABDOMEN MODERATELY OBESE AND PROTUBERANT) Auscultation: normal bowel sounds Back/Spine/Pelvis Thoracic/Lumbar Spine: thoracic and lumbar spine normal to inspection and thoraco-lumbar ROM limited Skin General skin exam: dry skin Neuro General: patient oriented x3 and No no focal motor deficits (WEAKNESS OF LOWER EXTREMITIES) Cranial nerves: Yes CN's II-XII intact bilaterally Extrem General: Yes normal to inspection, Yes no clubbing, cyanosis or edema and Yes no calf tenderness Psych Appearance: grossly normal and well kempt Speech and movement: Normal speech and movement present Quality Reporting (2019) Adult ([facility] 138/2/) Smoking risk assessment performed?: Yes Patient Tobacco Use Status: Never used Tobacco Results Reviewed Results Reviewed: Compliance report for the last 30 nights is reviewed. She has used CPAP 29/30 nights, 97%. Average use it per night 4 hours 41 minutes. Pressure is 7 cm. She has some air leak, maximum 115 L/minute. And residual AHI 5.8 Assessment & Plan Assessment & Plan (1) Morbid obesity: Comment: SHE REMAINS GROSSLY OBESE. NOT IN ANY WEIGHT MANAGEMENT PROGRAM . NOT ABLE TO DO ANY EXERCISE, WALKS SLOW WITH WALKER. Code(s): E66.01 - Morbid (severe) obesity due to excess calories Category: Medical Plan: Discussed about the weight but patient has no great potential to lose weight. Instructed to watch diet and cut down the intake of starchy foods. (2) Restrictive lung disease: Comment: KNOWN TO HAVE RESTRICTIVE LUNG DISEASE SINCE THE HER PULMONARY FUNCTION TEST IN 2012. CLINICALLY I AM SURE SHE DOES HAVE MODERATE DEGREE OF RESTRICTION, THIS IS SECONDARY TO MORBID OBESITY. SHE ALSO SEEM TO HAVE MILD DEGREE OF ASTHMA/REACTIVE AIRWAYS. Code(s): J98.4 - Other disorders of lung Category: Medical Plan: Do deep breathing exercises 2 or 3 times a day ALBUTEROL HFA 2 PUFFS Q 6 HOURS ONLY P.R.N.. (3) BRYNN on CPAP: Comment: LONGSTANDING HISTORY OF OBSTRUCTIVE SLEEP APNEA. SHE DID GET NEW CPAP DEVICE. HAS FULLFACE MASK. PRESSURE SETTING 7 CM. SHE IS USING IT REGULARLY EVERY NIGHT. THERE IS SOME AIR LEAK . Code(s): G47.33 - Obstructive sleep apnea (adult) (pediatric); Z99.89 - Dependence on other enabling machines and devices Category: Medical Plan: ADVISED TO CONTINUE USING THE CPAP REGULARLY. TRY TO TIGHTEN THE STRAPS. INTERMITTENT MINIMAL EPISTAXIS FROM THE RIGHT NOSTRIL IS PROBABLY RELATED TO LOCAL IRRITATION AND TAKING ANTIPLATELET AGENTS, NOT ACTIVE AT PRESENT. Coding Level of Care Code Est Pt Level 3 (19996) Diagnoses Morbid obesity E66.01 Restrictive lung disease J98.4 BRYNN on CPAP G47.33; Z99.89
[2023-10-31 14:04] VITALS: BP 120/58; PULSE 63; O2SAT 96; BMI 41.1
== END 2023-10-31 14:26 | disposition home or self-care (01) ==
PROVIDERS: PCP Internal Medicine; Visit Provider Internal Medicine
DX: E66.01 Morbid (severe) obesity due to excess calories (principal); J98.4 Other disorders of lung; G47.33 Obstructive sleep apnea (adult) (pediatric); Z99.89 Dependence on other enabling machines and devices
CPT/HCPCS: 99213

== ENCOUNTER → 2023-10-31 13:34 | Outpatient (BNVA) | payer OTHER, SELFPAY | PROVIDERS: PCP Internal Medicine; Visit Provider Internal Medicine | DX: G47.33 Obstructive sleep apnea (adult) (pediatric) (principal); J45.909 Unspecified asthma, uncomplicated; J98.4 Other disorders of lung; E66.01 Morbid (severe) obesity due to excess calories; Z99.89 Dependence on other enabling machines and devices | CPT/HCPCS: 99212 ==

== ENCOUNTER 2023-11-01 06:45 | Day surgery (SDC) | payer OTHER, SELFPAY ==
[2023-11-01] VITALS (9 sets, daily range): BP systolic 140–164; BP diastolic 40–69; PULSE 49–59; RESP 11–18; TEMP 36.1–36.4; O2SAT 97–100; BMI 40.8
[2023-11-01 08:24] LABS: MANUAL DIFF FLAG NO
[2023-11-01 08:26] LABS: Glucose, Whole Blood 92 mg/dL (60-115)
[2023-11-01 08:31] LABS: Basophils Absolute Auto 0.1 X10*3/uL (0.0-0.2); Basophils Percent Auto 0.6 % (0-2); Eosinophils Absolute Auto 0.3 X10*3/uL (0.0-0.4); Eosinophils Percent Auto 2.8 % (0-4); Hemoglobin 13.8 g/dl (12.0-16.0); Imm Gran Abs Auto 0.02 X10*3/uL (0.00-0.03); Imm Gran Pct Auto 0.2 % (0.0-0.4); Lymphocytes Absolute Auto 3.2 X10*3/uL (1.2-4.9); Lymphocytes Percent Auto 35.7 % (20-40); Mean Corpuscular HGB Conc 31.4 g/dl (31.0-35.0); Mean Corpuscular Hemoglobin 28.9 pg (27.0-33.0); Mean Corpuscular Volume 92.2 fL (80.0-98.0); Mean Platelet Volume 11.2 fL (9.4-12.3); Monocytes Absolute Auto 0.8 X10*3/uL (0.1-1.2); Monocytes Percent Auto 9.2 % (2-11); Neutrophils Absolute Auto 4.6 x10*3/uL (2.0-8.3); Neutrophils Percent Auto 51.5 % (45-73); Platelet Count 198 X10*3/uL (160-400); Red Blood Count 4.77 X10*6/uL (4.20-5.50); Red Cell Distribution Width 14.8 % (11.0-16.0); White Blood Count 8.8 X10*3/uL (4.8-10.8)
[2023-11-01 08:37] LABS: Blood Urea Nitrogen 19 mg/dL (9-16); Creatinine Clr Calc Pharmacy 38.7; Estimated Glomerular Filt Rate 31
[2023-11-01] MEDS: 0.9 % Sodium Chloride 1,000 ML 100 ML IVCONT (08:51)
--- NOTE | 2023-11-01 11:12 | P.OP_ITS ---
Operative Note Operative Note Date of Service: 11/01/23 Narrative: Angiogram report from [facility] Preoperative diagnosis: Atherosclerosis of left lower extremity with activity limiting claudication Postoperative diagnosis: Same Procedure: 1. Ultrasound-guided right common femoral access 2. Aortogram with left lower extremity runoff Surgeon:Josiah Baires M.D., FACS, RPVI Take Off Worker:None Anesthesia: Local with moderate conscious sedation. Total intraservice mode rate sedation time was 27 minutes. I monitored the patient's level of consciousness and physiologic status continuously throughout the procedure. Specimens:none Drains:none Estimated blood loss: Less than 10 ml Implant: None Indications: 63-year-old female who presented with left lower extremity pain. On ultrasound was found to have inflow disease and SFA disease. She now presents for endovascular intervention The patient has signed the informed consent after reviewing risks, complications, benefits, and alternatives previously discussed with the patient. The patient was given the opportunity to ask any additional questions or voice any concerns. All questions were answered to the patient's satisfaction. Procedure in detail: Patient was brought to the angiography suite prior to which a time-out was called for patient identification and site verification. Bilateral groins were prepped and draped in the standard surgical fashion. Under ultrasound guidance right common femoral was punctured with micro puncture needle and wire. Subsequently a precision 5 Amharic sheath was then placed. Bentson wire was advanced to the level of the aorta. 5 Amharic Flush catheter was brought up and parked at the level of the renal arteries. Aortogram was then undertaken. Catheter was brought down to the level of the iliac bifurcation. Iliacs were subsequently imaged. Catheter was then brought in up and over to the left side SFA. Runoff study was then undertaken. No intervention was indicated catheter wire sheath was brought back to the ipsilateral side. CELT closure device was deployed. Adequate hemostasis was achieved. Patient was brought back to the recovery with stable vitals. Interpretation of films: 1. Ultrasound demonstrates appropriate femoral access site. Vessel was patent with minimal stenosis. Needle entry was visualized. Image of ultrasound was saved. 2. Aortogram demonstrates appropriate caliber aorta. Minimal disease. Appropriate take-off of the renals. 3. Iliac images demonstrate no significant disease 4. Left Leg Common femoral artery: No significant disease Profundus Femoris: No significant disease Superficial femoral artery: Left SFA had multiple stenotic lesions no flow- limiting stenosis. Vessel was small in caliber Popliteal artery (p1,p2,p3): No significant disease Anterior tibial artery: Patent to ankle Peroneal artery: Diminutive Posterior tibial artery: Patent to ankle Dorsalis pedis/plantar arch: Present but incomplete Conclusion: 1. Successful diagnostic angiogram 2. Anticoagulation status: No change This note is constructed using voice recognition software. While every effort has been made to ensure accuracy, editor newspaper errors may have been included. Thank you for allowing me to participate in the care of your patient. Yours sincerely, Josiah Baires MD, FACS, R.P.V.I.
== END 2023-11-01 14:05 | disposition home or self-care (01) ==
PROVIDERS: PCP Internal Medicine; Visit Provider Surgery Vascular Surgery
PROC: (CPT 36247; principal; 2023-11-01 09:00)
DX: E11.51 Type 2 diabetes mellitus with diabetic peripheral angiopathy without gangrene (principal); I70.212 Atherosclerosis of native arteries of extremities with intermittent claudication, left leg; I10 Essential (primary) hypertension; Z79.4 Long term (current) use of insulin; Z79.899 Other long term (current) drug therapy
CPT/HCPCS: 36247; 36415; 75630; 76937; 82565; 82947; 84520; 85025; 99152; 99153; C1760; C1769; C1887; C1894; J1644; J2250; J2310; J3010; Q9967

== ENCOUNTER → 2023-11-01 06:45 | Outpatient (BNV) | payer OTHER, SELFPAY | PROVIDERS: PCP Internal Medicine; Visit Provider Surgery Vascular Surgery | DX: I70.212 Atherosclerosis of native arteries of extremities with intermittent claudication, left leg (principal) | CPT/HCPCS: 36247; 75625; 75710; 76937; 99152 ==

== ENCOUNTER 2023-11-16 11:21 | Outpatient (AMB) | payer OTHER, SELFPAY ==
--- NOTE | 2023-11-16 11:24 | A.OFFVIS_ITS ---
Intake Visit Reasons: 2 week follow up 10/31 angio Intake Note: Patient presents for follow up angio. Patient has no complaints. Allergies lactose Allergy (Intermediate, Verified 11/16/23 11:26) Vomiting amlodipine Allergy (Mild, Verified 11/16/23 11:26) leg edema liraglutide [From VICTOZA] Allergy (Mild, Verified 11/16/23 11:26) VOMITING RUBI HPI HPI 2 week follow up 10/31 angio: Details: Very pleasant 63-year-old female presents for follow-up status post diagnostic angiogram. She had had no interval issues. She reports that the left leg continues to have occasional pain but it is more of a constant pain. She now presents for routine postprocedure follow-up [facility] Medical History Restrictive lung disease CKD (chronic kidney disease) stage 4, GFR 15-29 ml/min Right hemiparesis Cerebrovascular accident (CVA) due to occlusion of left middle cerebral artery Skin lesion Lumbar degenerative disc disease CKD (chronic kidney disease) BRYNN (obstructive sleep apnea) Arthritis Hypercholesteremia CAD (coronary artery disease) Sinusitis Stroke Asthma Hypertension Diabetes Surgical History History of esophagogastroduodenoscopy (EGD) H/O colonoscopy History of bilateral tubal ligation History of heart surgery History of coronary angioplasty with insertion of stent History of cataract surgery H/O right breast biopsy Family History Father Stroke Mother Myocardial infarction Paternal Uncle Cancer Family/Other Breast cancer Social History Household Members: Family Housing: House Are you a primary skin care consultant to a significant other at home: No Alcohol intake: never Comment: family at bedside Patient Tobacco Use Status: Never used Tobacco e-Cigarette/Vaping Use: Never Used Second Hand Smoke Exposure: No Advance Directives Date on File: 01/25/22 service: No Current occupational status: unemployed and disabled Sexual orientation: Straight/Heterosexual Gender identity: Female Cognitive needs: Yes Hearing needs: No Vision needs: No Female Reproductive History Menstrual Age of Menarche: 14 Review of Systems Const All systems reviewed & are unremarkable except as noted in HPI and below Reports no additional complaints ENT Reports Normal hearing present Card Denies chest pain, Denies chest pain at rest, Denies chest pain with activity and Denies pedal edema Resp Denies cough GI Denies abdominal pain Musc Denies abnormal gait, Denies muscle cramps and Denies radiating pain into limb Skin/Breast Denies skin ulcer and Denies wounds Neuro Reports Normal hearing present and Denies abnormal gait Psych Reports no additional complaints Physical Exam Const General: cooperative, healthy appearing and comfortable Orientation/consciousness: oriented to person, oriented to place and oriented to time HEENT Head: Yes normal to inspection Neck Neck: Yes normal visual inspection Carotids: no bruits Chest Chest palpation & inspection: normal inspection of the chest Resp Effort & Inspection: normal respiratory effort and able to speak in complete sentences Auscultation: clear to auscultation bilaterally, no crackles, no rales, no rhonchi and no wheezes Cardio Other: Bilateral DP signals Rate: regular rate Rhythm: regular rhythm Heart sounds: S1 normal heart sound present and S2 normal heart sound present Bruits: no carotid bruits Peripheral pulses: Peripheral pulses 2+ throughout GI Inspection: Yes normal to inspection Skin Other: Right groin no hematoma Wounds: no wounds Hair: normal Neuro General: oriented to person, oriented to place and oriented to time Cranial nerves: Yes CN's II-XII intact bilaterally and Yes Normal hearing present Cognition (Neuro): normal cognition Motor exam (neuro): 5/5 motor strength present throughout Extrem Other: venous exam: No significant superficial varicosities or spider telangiectasias, minimal edema General: No clubbing, No cyanosis and No edema Psych Appearance: grossly normal Mental Status: mental status grossly normal Speech and movement: Normal speech and movement present Quality Reporting (2019) Adult ([facility] 13806/22/68) Smoking risk assessment performed?: Yes Patient Tobacco Use Status: Never used Tobacco Assessment & Plan Assessment & Plan (1) PAD (peripheral artery disease): Comment: 11/01/2023 diagnostic angiogram Code(s): I73.9 - Peripheral vascular disease, unspecified Category: Medical Plan: In short patient has minimal peripheral vascular disease. Although her vessels are small in caliber she had no distinct occlusion. Would recommend 6 month arterial surveillance. She will follow up with us with noninvasive testing. Routine risk factor modification discussed. Thank you for allowing us to assist in her care. Orders: Orders US arterial duplex LE BI 6 Months I73.9 - Peripheral vascular disease, unspecified Coding Level of Care Code Est Pt Level 4 (66886) Diagnoses PAD (peripheral artery disease) I73.9
== END 2023-11-16 11:39 | disposition home or self-care (01) ==
PROVIDERS: PCP Internal Medicine; Visit Provider Surgery Vascular Surgery
DX: I73.9 Peripheral vascular disease, unspecified (principal)
CPT/HCPCS: 99214

== ENCOUNTER → 2023-11-16 11:21 | Outpatient (BNVA) | payer OTHER, SELFPAY | PROVIDERS: PCP Internal Medicine; Visit Provider Surgery Vascular Surgery | DX: I73.9 Peripheral vascular disease, unspecified (principal); Z98.890 Other specified postprocedural states | CPT/HCPCS: 99212 ==

== ENCOUNTER → 2023-11-23 23:59 | Outpatient (BNV) | payer OTHER, SELFPAY ==
--- NOTE | 2023-11-24 17:23 | A.OFFVIS_ITS ---
Intake Visit Reasons: Remote [facility] Allergies lactose Allergy (Intermediate, Verified 11/16/23 11:26) Vomiting amlodipine Allergy (Mild, Verified 11/16/23 11:26) leg edema liraglutide [From VICTOZA] Allergy (Mild, Verified 11/16/23 11:26) VOMITING RUBI PFSH Medical History Restrictive lung disease CKD (chronic kidney disease) stage 4, GFR 15-29 ml/min Right hemiparesis Cerebrovascular accident (CVA) due to occlusion of left middle cerebral artery Skin lesion Lumbar degenerative disc disease CKD (chronic kidney disease) BRYNN (obstructive sleep apnea) Arthritis Hypercholesteremia CAD (coronary artery disease) Sinusitis Stroke Asthma Hypertension Diabetes Surgical History History of esophagogastroduodenoscopy (EGD) H/O colonoscopy History of bilateral tubal ligation History of heart surgery History of coronary angioplasty with insertion of stent History of cataract surgery H/O right breast biopsy Family History Father Stroke Mother Myocardial infarction Paternal Uncle Cancer Family/Other Breast cancer Social History Household Members: Family Housing: House Are you a primary certified social workers in health care to a significant other at home: No Alcohol intake: never Comment: family at bedside Patient Tobacco Use Status: Never used Tobacco e-Cigarette/Vaping Use: Never Used Second Hand Smoke Exposure: No Advance Directives Date on File: 01/25/22 service: No Current occupational status: unemployed and disabled Sexual orientation: Straight/Heterosexual Gender identity: Female Cognitive needs: Yes Hearing needs: No Vision needs: No Female Reproductive History Menstrual Age of Menarche: 14 Office Procedures Cardiac Device Check Cardiac Device Check Details: Monitoring period dates: 10/24/23 - 11/23/23 Optimal PA pressure range: LOREN goal 30 mmhg Procedure code: 31268 BACKGROUND: Anna is implanted with the CardioMEMS PA Sensor.? I use this technology to monitor PA pressures on a weekly basis to ensure patients are within their optimal range to prevent decompensation.? SUMMARY:? I utilized the remote monitoring platform (IntelliWheels) to set optimal targets for pulmonary artery pressure thresholds as part of acute and chronic management of patient?s heart failure. During the period indicated above, I monitored the patient?s pulmonary artery pressures weekly via trend analysis and notification reports which provide alerts when patient?s PA pressures were outsi de of range to prompt immediate action in medication changes and communications.? The weekly reports are archived in the [employer]Wheels system which serve as a parallel record to document weekly PA pressures, medication changes, and clinical notes. I have reviewed readings on 10/24, 10/29, 11/02, 11/07, 11/12, 11/16, 11/22.. LOREN has ranged between 28-40mmhg and diuretics adjusted as needed. 58249 - Remote monitoring of wireless pulmonary artery pressure sensor Procedure code (CPT) selection complete Quality Reporting (2019) Adult ([facility] 138/06/22/68) Smoking risk assessment performed?: Yes Patient Tobacco Use Status: Never used Tobacco Assessment & Plan Assessment & Plan (1) Presence of CardioMEMS HF system: Code(s): Z95.818 - Presence of other cardiac implants and grafts Category: Medical Plan: monthly report Coding Level of Care Code Procedure Only Diagnoses Presence of CardioMEMS HF system Z95.818 CPT Codes Cardiac Device Check - Cardiac Device 17: 40094 - Remote monitoring of wireless pulmonary artery pressure sensor ([id number])
== END ==
PROVIDERS: PCP Internal Medicine; Visit Provider Nurse Practitioner Family
DX: I50.9 Heart failure, unspecified (principal); Z95.818 Presence of other cardiac implants and grafts
CPT/HCPCS: 93264

== ENCOUNTER 2023-12-04 13:16 | Outpatient (AMB) | payer OTHER, SELFPAY ==
--- NOTE | 2023-12-04 13:17 | A.OFFPC_ITS ---
Vital Signs 12/04/23 13:18 Height 5 ft 2 in Weight 213 lb BMI 39.0 BP 114/68 Blood Pressure Location Lt brachial Position Sitting Intake Visit Reasons: dm,needs 30 minutes Intake Note: Patient here for a follow up DM Dispatch Coordinator Required: No Accompanied by: Daughter Allergies lactose Allergy (Intermediate, Verified 12/04/23 13:29) Vomiting amlodipine Allergy (Mild, Verified 12/04/23 13:29) leg edema liraglutide [From VICTOZA] Allergy (Mild, Verified 12/04/23 13:29) VOMITING RUBI Medication List - Last Reconciled 12/04/23 by Shara Grimes MD albuterol sulfate 90 mcg/actuation 2 puffs inhalation Q6H PRN 30 days amitriptyline 25 mg PO BEDTIME apixaban (Eliquis) 5 mg PO BID 90 days ascorbic acid (vitamin C) (Vitamin C With Allie Hips) 500 mg PO DAILY 90 days blood sugar diagnostic As directed cholecalciferol (vitamin D3) 50 mcg PO DAILY 90 days clopidogrel (Plavix) 75 mg PO DAILY clotrimazole 1% 1 appl topical BID 4 weeks commode As directed dapagliflozin propanediol (Farxiga) 10 mg PO DAILY ferrous sulfate 325 mg PO DAILY 90 days furosemide 40 mg PO BID gabapentin 300 mg PO BID hydralazine 25 mg PO BID insulin regular hum U-500 conc 0 - 450 units subcut DAILY PRN lactulose 10 grams (15 mL) PO BEDTIME PRN 30 days metoprolol tartrate 50 mg (2 x 25 mg) PO BID 90 days [pulse oximeter As directed] rosuvastatin 40 mg PO DAILY 90 days sennosides (Senna Laxative) 17.2 mg (2 x 8.6 mg) PO BEDTIME PRN 30 days Shower Chair As directed walker with seat and wheels Tobacco use date assessed: 07/25/23 Dental Screening Dental Screen Date: 12/04/23 Did you have a dental visit in the last 12 months?: No Did you have a dental problem in the last 6 months where you did not have access to dental care?: No Was dental information given to patient?: Patient has dentist HPI HPI Comments History of Present Illness Details This is a 63-year-old female with diabetes mellitus type 2 on long-term current use of insulin, chronic kidney disease stage 3, congestive heart failure with preserved ejection fraction, paroxysmal atrial fibrillation and 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 She has lost 10 lb since last time most likely secondary to diuretics. Patient euvolemic today. No chest pain or shortness on breath. A1c elevated and this is follow by Endocrinology and she is on insulin pump. Last GFR was of 31 and she does follows with Nephrology. Last echocardiogram showed ejection fraction of 50% in August of this year. On chronic anticoagulation for atrial fibrillation. Atrial fibrillation and congestive heart failure are follow by cardiology. She does have a CVA with right hemiparesis and needs a walker to be able to walk. Also needs a shower chair to avoid falling. FORMERLY [facility], [facility] Medical History (Updated 12/04/23 @ 15:08 by Shara Grimes MD) Acute on chronic renal failure CHF exacerbation Afib Restrictive lung disease CKD (chronic kidney disease) stage 4, GFR 15-29 ml/min Right hemiparesis Cerebrovascular accident (CVA) due to occlusion of left middle cerebral artery Skin lesion Lumbar degenerative disc disease CKD (chronic kidney disease) BRYNN (obstructive sleep apnea) Arthritis Hypercholesteremia CAD (coronary artery disease) Sinusitis Stroke Asthma Hypertension Diabetes Surgical History History of esophagogastroduodenoscopy (EGD) H/O colonoscopy History of bilateral tubal ligation History of heart surgery History of coronary angioplasty with insertion of stent History of cataract surgery H/O right breast biopsy Family History Father Stroke Mother Myocardial infarction Paternal Uncle Cancer Family/Other Breast cancer Social History Household Members: Family Housing: House Are you a primary care consultant to a significant other at home: No Alcohol intake: never Comment: family at bedside Patient Tobacco Use Status: Never used Tobacco e-Cigarette/Vaping Use: Never Used Second Hand Smoke Exposure: No Advance Directives Date on File: 01/25/22 service: No Current occupational status: unemployed and disabled Sexual orientation: Straight/Heterosexual Gender identity: Female Cognitive needs: Yes Hearing needs: No Vision needs: No Female Reproductive History Menstrual Age of Menarche: 14 Questionnaire Thrive Questionnaire Date Thrive assessed: 07/25/23 SILVANA-7 AMB Questionnaire SILVANA-7 Date SILVANA - 7 assessed: 07/25/23 Source: Developed by Drs. Royce Nielsen, Sarah Dunbar, Farhan Bird and colleagues, with an educational maya from [employer]. Review of Systems Const All systems reviewed & are unremarkable except as noted in HPI and below Card Denies chest pain at rest, Denies chest pain with activity, Denies edema, Denies irregular heart rhythm, Denies claudication, Denies dyspnea, Denies dyspnea on exertion, Denies orthopnea, Denies paroxysmal nocturnal dyspnea and Denies slow heart rate Resp Denies cough, Denies dyspnea and Denies dyspnea on exertion GI Denies abdominal pain, Denies change in bowel habits, Denies excessive flatus, Denies nausea and Denies vomiting Denies urinary incontinence, Denies urinary hesitancy and Denies urinary urgency Musc Denies atrophy, Denies deformity and Denies limited range of motion Skin/Breast Denies bleeding lesions, Denies changing lesions and Denies rash Physical exam (Primary Care) Vital Signs: Last Vital Signs BP 114/68 12/04/23 13:18 BMI result Body Mass Index 39.0 BMI Assessment/Plan discussion: High BMI High, discussed plan: lifestyle, weight reduction, dietary and physical activity Tobacco/Smoking Status: Tobacco use Status Tobacco use date assessed 07/25/23 12/04/23 13:21 Patient Tobacco Use Status Never used Tobacco 12/04/23 13:21 e-Cigarette/Vaping Use Never Used 12/04/23 13:21 Thrive Assessment: Date of Thrive Assessment Date Thrive assessed 07/25/23 12/04/23 13:21 Const General: ill appearing chronically Limitations: ambulation with walker Resp Effort & Inspection: normal respiratory effort Auscultation: clear to auscultation bilaterally Cardio Jugular venous distension: no JVD Rate: regular rate Rhythm: regular rhythm Heart sounds: S1 normal heart sound present and S2 normal heart sound present Neuro Motor exam (neuro): Abnormal motor strength present (2/5 right side, 5/5 left side) Extrem General: Yes full ROM Results AMB Hemoglobin A1c AMB Hemoglobin A1c 8.8 % Last Edit by CHARLY Mobley on 12/04/23 13:3 4 Results Reviewed Results Reviewed: Laboratory Last Values Hgb A1c (Clinic) 8.8 % (4.0-6.0) H 12/04/23 13:17 Assessment and Plan Assessment & Plan (1) Paroxysmal atrial fibrillation: Code(s): I48.0 - Paroxysmal atrial fibrillation Plan: Continue Eliquis and metoprolol. Follow-up with Cardiology. (2) CKD (chronic kidney disease) stage 3, GFR 30-59 ml/min: Code(s): N18.30 - Chronic kidney disease, stage 3 unspecified Qualifiers: Chronic kidney disease stage 3 subtype: stage 3b (GFR 30-44) Qualified Code(s): N18.32 - Chronic kidney disease, stage 3b Plan: Avoid NSAIDs. Keep blood pressure within goal. Follow-up with nephrology. (3) Type 2 diabetes mellitus, with long-term current use of insulin: Code(s): E11.9 - Type 2 diabetes mellitus without complications; Z79.4 - [facility] (current) use of insulin Qualifiers: Diabetes mellitus complication status: with hyperglycemia Qualified Code(s): E11.65 - Type 2 diabetes mellitus with hyperglycemia; Z79.4 - [facility] (current) use of insulin Plan: Continue insulin pump. Follow-up with endocrinology. A1c goal is equal or less than 7%. (4) Chronic heart failure with preserved ejection fraction (HFpEF): Code(s): I50.32 - Chronic diastolic (congestive) heart failure Plan: Continue diuretics. The goal is to not gain 5 lb in a week. (5) Cerebrovascular accident (CVA) due to occlusion of left middle cerebral artery: Code(s): I63.512 - Cerebral infarction due to unspecified occlusion or stenosis of left middle cerebral artery Plan: Continue the use of a walker for support. Continue Plavix. Orders: Orders AMB Hemoglobin A1c Today E11.9 - Type 2 diabetes mellitus without complications, Z79.4 - exterminator (current) use of insulin Lipid Panel 4 Months E78.5 - Hyperlipidemia, unspecified Microalbumin, Random (w Creat) 4 Months E11.9 - Type 2 diabetes mellitus without complications IRON PROFILE 4 Months D64.9 - Anemia, unspecified Vitamin B12 and Folate 4 Months E53.8 - Deficiency of other specified B group vitamins Comprehensive [place]. Panel Fast 4 Months N18.30 - Chronic kidney disease, stage 3 unspecified Complete Blood Count Auto Diff 4 Months D64.9 - Anemia, unspecified Vitamin D 25-OH Total 4 Months E55.9 - Vitamin D deficiency, unspecified NT-proBNP 4 Months I50.32 - Chronic diastolic (congestive) heart failure Medications: New alprazolam (Xanax) 0.5 mg PO BEDTIME 5 days PRN 5 tabs 0RF anxiety Changed From gabapentin 300 mg PO BID To gabapentin 300 mg PO BID 30 days 60 caps 1RF Refilled walker with seat and wheels 1 ea 0RF I25.10 - Atherosclerotic heart disease of rampart coronary artery without angina pectoris, I50.22 - Chronic systolic (congestive) heart failure, M51.36 - Other intervertebral disc degeneration, lumbar region Shower Chair As directed 1 ea 0RF I25.10 - Atherosclerotic heart disease of rampart coronary artery without angina pectoris, I50.22 - Chronic systolic (congestive) heart failure, M51.36 - Other intervertebral disc degeneration, lumbar region Discontinued ferrous sulfate Discontinued Reason: Patient Completed Course 325 mg PO DAILY 90 days 90 tabs 1RF Coding Level of Care Code Est Pt Level 4 (31559) Complex EM visit Add On G2211 Diagnoses Paroxysmal atrial fibrillation I48.0 Stage 3b chronic kidney disease N18.32 Chronic kidney disease stage 3 subtype: stage 3b (GFR 30-44) Type 2 diabetes mellitus with hyperglycemia, with long-term current use of insulin E11.65; Z79.4 Diabetes mellitus complication status: with hyperglycemia Chronic heart failure with preserved ejection fraction (HFpEF) I50.32 Cerebrovascular accident (CVA) due to occlusion of left middle cerebral artery I63.512 Time Spent (min) 25
[2023-12-04 13:18] VITALS: BP 114/68; BMI 39.0
== END 2023-12-04 13:54 | disposition home or self-care (01) ==
PROVIDERS: PCP Internal Medicine; Visit Provider Internal Medicine
DX: E11.65 Type 2 diabetes mellitus with hyperglycemia (principal); Z79.4 Long term (current) use of insulin; I48.0 Paroxysmal atrial fibrillation; I69.351 Hemiplegia and hemiparesis following cerebral infarction affecting right dominant side; N18.32 Chronic kidney disease, stage 3b; I50.32 Chronic diastolic (congestive) heart failure
CPT/HCPCS: 83036; 99214; G2211

== ENCOUNTER → 2023-12-25 23:59 | Outpatient (BNV) | payer OTHER, SELFPAY ==
--- NOTE | 2024-01-05 17:18 | A.OFFVIS_ITS ---
Intake Visit Reasons: Remote cardiomems- [facility] Allergies lactose Allergy (Intermediate, Verified 12/04/23 13:29) Vomiting amlodipine Allergy (Mild, Verified 12/04/23 13:29) leg edema liraglutide [From VICTOZA] Allergy (Mild, Verified 12/04/23 13:29) VOMITING RUBI PFSH Medical History (Updated 12/04/23 @ 15:08 by Shara Grimes MD) Acute on chronic renal failure CHF exacerbation Afib Restrictive lung disease CKD (chronic kidney disease) stage 4, GFR 15-29 ml/min Right hemiparesis Cerebrovascular accident (CVA) due to occlusion of left middle cerebral artery Skin lesion Lumbar degenerative disc disease CKD (chronic kidney disease) BRYNN (obstructive sleep apnea) Arthritis Hypercholesteremia CAD (coronary artery disease) Sinusitis Stroke Asthma Hypertension Diabetes Surgical History History of esophagogastroduodenoscopy (EGD) H/O colonoscopy History of bilateral tubal ligation History of heart surgery History of coronary angioplasty with insertion of stent History of cataract surgery H/O right breast biopsy Family History Father Stroke Mother Myocardial infarction Paternal Uncle Cancer Family/Other Breast cancer Social History Household Members: Family Housing: House Are you a primary director critical care to a significant other at home: No Alcohol intake: never Comment: family at bedside Patient Tobacco Use Status: Never used Tobacco e-Cigarette/Vaping Use: Never Used Second Hand Smoke Exposure: No Advance Directives Date on File: 01/25/22 service: No Current occupational status: unemployed and disabled Sexual orientation: Straight/Heterosexual Gender identity: Female Cognitive needs: Yes Hearing needs: No Vision needs: No Female Reproductive History Menstrual Age of Menarche: 14 Office Procedures Cardiac Device Check Cardiac Device Check Details: Monitoring period dates:11/24/23- 12/26/23 Optimal PA pressure range: LOREN 30mmhg Procedure code: 63599 BACKGROUND: Aidal is implanted with the CardioMEMS PA Sensor.? I use this technology to monitor PA pressures on a weekly basis to ensure patients are within their optimal range to prevent decompensation.? SUMMARY:? I utilized the remote monitoring platform ([employer]) to set optimal targets for pulmonary artery pressure thresholds as part of acute and chronic management of patient?s heart failure. During the period indicated above, I monitored the patient?s pulmonary artery pressures weekly via trend analysis and notification reports which provide alerts when patient?s PA pressures were outside of range to prompt immediate action in medication changes and communications.? The weekly reports are archived in the [employer] system which serve as a parallel record to document weekly PA pressures, medication changes, and clinical notes. I have reviewed readings on 11/24, 12/03, 12/10. 12/17, 12/24.Her LOREN readings have ranged between 26-44mgh. Her diuretics have been adjusted accordingly. 17424 - Remote monitoring of wireless pulmonary artery pressure sensor Procedure code (CPT) selection complete Quality Reporting (2019) Adult ([facility] 138/06/22/68) Smoking risk assessment performed?: Yes Patient Tobacco Use Status: Never used Tobacco Assessment & Plan Assessment & Plan (1) Presence of CardioMEMS HF system: Code(s): Z95.818 - Presence of other cardiac implants and grafts Category: Medical Plan: monthly report Coding Level of Care Code Procedure Only Diagnoses Presence of CardioMEMS HF system Z95.818 CPT Codes Cardiac Device Check - Cardiac Device 17: 21350 - Remote monitoring of wireless pulmonary artery pressure sensor ([id number])
== END ==
PROVIDERS: PCP Internal Medicine; Visit Provider Nurse Practitioner Family
DX: Z45.09 Encounter for adjustment and management of other cardiac device (principal)
CPT/HCPCS: 93264

== ENCOUNTER 2024-01-11 10:18 | Outpatient (AMB) | payer OTHER, SELFPAY ==
--- NOTE | 2024-01-11 10:21 | HO.NEPHOV ---
Vital Signs 01/11/24 10:34 Height 5 ft 2 in Weight 223 lb BMI 40.8 BP 112/54 L Blood Pressure Location Lt brachial Position Sitting Intake Visit Reasons: CKD/ Conf Intake Note: Declined [facility] deaf interpreter patients daughter will translate. Filled out refusal form and scanned into chart. Natural Science Manager Required: No Accompanied by: Daughter Allergies lactose Allergy (Intermediate, Verified 01/11/24 10:35) Vomiting amlodipine Allergy (Mild, Verified 01/11/24 10:35) leg edema liraglutide [From VICTOZA] Allergy (Mild, Verified 01/11/24 10:35) VOMITING RUBI Medication List - Last Reconciled 01/11/24 by Petar Stevens MD albuterol sulfate 90 mcg/actuation 2 puffs inhalation Q6H PRN 30 days alprazolam (Xanax) 0.5 mg PO BEDTIME PRN 5 days amitriptyline 25 mg PO BEDTIME apixaban (Eliquis) 5 mg PO BID 90 days ascorbic acid (vitamin C) (Vitamin C With Allie Hips) 500 mg PO DAILY 90 days blood sugar diagnostic As directed cholecalciferol (vitamin D3) 50 mcg PO DAILY 90 days clopidogrel (Plavix) 75 mg PO DAILY clotrimazole 1% 1 appl topical BID 4 weeks commode As directed dapagliflozin propanediol (Farxiga) 10 mg PO DAILY furosemide 40 mg PO BID gabapentin 300 mg PO BID 30 days hydralazine 25 mg PO BID insulin regular hum U-500 conc 0 - 450 units subcut DAILY PRN lactulose 10 grams (15 mL) PO BEDTIME PRN 30 days metoprolol tartrate 50 mg (2 x 25 mg) PO BID 90 days [pulse oximeter As directed] rosuvastatin 40 mg PO DAILY 90 days sennosides (Senna Laxative) 17.2 mg (2 x 8.6 mg) PO BEDTIME PRN 30 days Shower Chair As directed walker with seat and wheels HPI Comments Details: 62-year-old woman with a history of longstanding hypertension diabetes mellitus and obesity with CKD. She was accompanied by her daughter.Denies any new complaints. No urinary symptoms. She recently had an episode of gout and she completed a short course of colchicine. 09/05/23 Accompanied by daughter Still has edema No dyspnea K was 2.6 on 08/20/23 !! 10/17/23: Doing better lost few pounds K was 3.3 01/11/24 Doing well No dyspnea Cr stable PFSH Medical History (Updated 12/04/23 @ 15:08 by Shara Grimes MD) Acute on chronic renal failure CHF exacerbation Afib Restrictive lung disease CKD (chronic kidney disease) stage 4, GFR 15-29 ml/min Right hemiparesis Cerebrovascular accident (CVA) due to occlusion of left middle cerebral artery Skin lesion Lumbar degenerative disc disease CKD (chronic kidney disease) BRYNN (obstructive sleep apnea) Arthritis Hypercholesteremia CAD (coronary artery disease) Sinusitis Stroke Asthma Hypertension Diabetes Surgical History History of esophagogastroduodenoscopy (EGD) H/O colonoscopy History of bilateral tubal ligation History of heart surgery History of coronary angioplasty with insertion of stent History of cataract surgery H/O right breast biopsy Family History Father Stroke Mother Myocardial infarction Paternal Uncle Cancer Family/Other Breast cancer Social History Household Members: Family Housing: House Are you a primary health care specialist to a significant other at home: No Alcohol intake: never Comment: family at bedside Patient Tobacco Use Status: Never used Tobacco e-Cigarette/Vaping Use: Never Used Second Hand Smoke Exposure: No Advance Directives Date on File: 01/25/22 service: No Current occupational status: unemployed and disabled Sexual orientation: Straight/Heterosexual Gender identity: Female Cognitive needs: Yes Hearing needs: No Vision needs: No Female Reproductive History Menstrual Age of Menarche: 14 Physical Exam Vital Signs: Last Vital Signs BP 112/54 L 01/11/24 10:34 BMI result Body Mass Index 40.8 Const General: comfortable Nutritional Appearance: well nourished Orientation/consciousness: patient oriented x3 HEENT Head: No normal to inspection Mouth: moist mucous membranes Neck Neck: Yes supple and Yes no JVD Resp Auscultation: clear to auscultation bilaterally and no rales Cardio Jugular venous distension: no JVD Palpation: no palpable S3 and no palpable S4 Heart sounds: no rubs GI Palpation (GI): Soft to palpation and nontender Percussion: No Fluid wave present General: Yes no CVA tenderness Back/Spine/Pelvis Back: no CVA tenderness Skin General skin exam: no rashes or lesions noted Neuro General: patient oriented x3 Extrem General: Yes no pedal edema and No clubbing Results Reviewed Nephrology Results: Hgb 13.8 g/dl (12.0-16.0) 11/01/23 WBC 8.8 X10*3/uL (4.8-10.8) 11/01/23 Plt Count 198 X10*3/uL (160-400) 11/01/23 BUN 19 mg/dL (9-16) H 11/01/23 Creatinine 1.68 mg/dL (0.5-1.4) H 11/01/23 Assessment & Plan Assessment & Plan (1) CKD (chronic kidney disease) stage 4, GFR 15-29 ml/min: Code(s): N18.4 - Chronic kidney disease, stage 4 (severe) Category: Medical (2) Anemia: Code(s): D64.9 - Anemia, unspecified Category: Medical (3) Type 2 diabetes mellitus, with long-term current use of insulin: Code(s): E11.9 - Type 2 diabetes mellitus without complications; Z79.4 - it field technician (current) use of insulin Category: Medical Qualifiers: Diabetes mellitus complication status: with hyperglycemia Qualified Code(s): E11.65 - Type 2 diabetes mellitus with hyperglycemia; Z79.4 - USP (current) use of insulin Plan: . Goal A1c less than 7% She follows with Endocrinology Dr. Shirley (4) CKD (chronic kidney disease) stage 3, GFR 30-59 ml/min: Code(s): N18.30 - Chronic kidney disease, stage 3 unspecified Category: Medical Qualifiers: Chronic kidney disease stage 3 subtype: stage 3b (GFR 30-44) Qualified Code(s): N18.32 - Chronic kidney disease, stage 3b Plan: Chronic kidney disease in the setting of longstanding hypertension obesity and diabetes mellitus. Renal function : creatinine increased from 1.8 mg/dL. to 2.2 Goal is to slow the progression of disease. Continue to avoid nephrotoxic agents. We discussed importance of tight control of blood pressure and blood sugar. She will benefit from weight loss as well. Continue [facility] for renal protection Plan . Anemia due to CKD causing erythropoietin deficiency. No absolute indication for Epogen yet. I will monitor hemoglobin and initiate therapy as indicated. Orders: Orders Basic Metabolic Panel 4 Months N18.32 - Chronic kidney disease, stage 3b Complete Blood Count Auto Diff 4 Months N18.32 - Chronic kidney disease, stage 3b Parathyroid Hormone Intact 4 Months N18.32 - Chronic kidney disease, stage 3b Coding Level of Care Code Est Pt Level 4 (76851) Diagnoses CKD (chronic kidney disease) stage 4, GFR 15-29 ml/min N18.4 Anemia D64.9 Type 2 diabetes mellitus with hyperglycemia, with long-term current use of insulin E11.65; Z79.4 Diabetes mellitus complication status: with hyperglycemia Stage 3b chronic kidney disease N18.32 Chronic kidney disease stage 3 subtype: stage 3b (GFR 30-44)
[2024-01-11 10:34] VITALS: BP 112/54; BMI 40.8
== END 2024-01-11 10:49 | disposition home or self-care (01) ==
PROVIDERS: PCP Internal Medicine; Visit Provider Internal Medicine Hypertension Specialist
DX: N18.4 Chronic kidney disease, stage 4 (severe) (principal); D64.9 Anemia, unspecified; E11.65 Type 2 diabetes mellitus with hyperglycemia; Z79.4 Long term (current) use of insulin; N18.32 Chronic kidney disease, stage 3b
CPT/HCPCS: 99214

== ENCOUNTER → 2024-01-11 10:18 | Outpatient (BNVA) | payer OTHER, SELFPAY | PROVIDERS: PCP Internal Medicine; Visit Provider Internal Medicine Hypertension Specialist | DX: E11.65 Type 2 diabetes mellitus with hyperglycemia (principal); N18.4 Chronic kidney disease, stage 4 (severe); D64.9 Anemia, unspecified; Z79.4 Long term (current) use of insulin | CPT/HCPCS: 99212 ==

== ENCOUNTER → 2024-01-18 09:32 | Outpatient (REF) | payer OTHER, SELFPAY ==
--- NOTE | ~2024-01-18 | NM_ITS ---
Lexiscan Myocardial perfusion study Indication: CAD to evaluate for myocardial ischemia Technique: The patient was brought in for a Lexiscan perfusion study on 01/18/2024 and was injected 0.4 mg of Lexiscan intravenously. Within a minute of this injection 35 mCi of sestamibi was given intravenously. Images were obtained using the SPECT gamma camera interlaced with the gating device. Images were obtained in supine position. Resting perfusion study was performed on 01/23/2024. Patient was administered 35 mCi of sestamibi intravenously at rest. Images were then obtained in supine position. Images obtained with and without CT attenuation. Total DLP 111 mGy-cm. Images were processed with the software and compared side to side in short axis, horizontal long axis and vertical long axis views. Findings: The stress perfusion study showed nonattenuated images show mildly reduced uptake in the distal anterior, apical as well as mildly reduced uptake in the distal lateral and mid anterolateral wall of the LV myocardium. Attenuated corrected vision mildly reduced uptake in the apical and basal lateral wall of the LV myocardium.. The gated study shows mildly reduced LV systolic function with calculated LVEF of 46%. LV cavity is normal in size. The gated study shows normal systolic wall thickening and contraction of segments. Resting study shows improved uptake in the distal anterior, apical as well as the distal lateral and mid anterolateral wall of the LV myocardium.. Gating at rest reveals normal systolic wall motion with ejection fraction at 59%. The findings are consistent with mild intensity distal anterior, apical as well as distal lateral and mid anterolateral wall reversible defect suggestive of ischemia in mid to distal LAD territory. NM/NM nicole perf SPECT rest & str Impression: 1. Myocardial perfusion imaging study shows mid to distal LAD territory ischemia of mild intensity 2. Gated LVEF is 46% with stress and 59% with rest 3. Transient ischemic dilatation present Equivocal changes on EKG. Electronically signed by: Brandon Horton MD 01/24/2024 01:51 PM EDT
--- NOTE | 2024-01-18 09:34 | CA_ITS ---
Acquisition Time: 2024-01-18 09:41:23 Total Exercise Time: 00:02:00 Test Indications: CAD Medications: see med sheet Protocol: LEXISCAN Max HR: 069 BPM 43% of Pred: 158 BPM Max BP: 164/070 mmHG Max Work Load: 1.0 METS Pharmacological stress test with Lexiscan injection while sitting, without anginal symptoms.without arrhythmias, with resting HTN, with drop to 118/68 without symptoms to injection, with nondiagnoisitic EKGs. Nuclear images pending. Test revewed with Dr. Horton Referred By: Brandon Horton Overread By: Sandhya Og
== END ==
LOC: HO.CARD 09:32
PROVIDERS: PCP Internal Medicine; Visit Provider Internal Medicine Cardiovascular Disease
DX: I25.10 Atherosclerotic heart disease of native coronary artery without angina pectoris (principal)
CPT/HCPCS: 78452; 93017; A9500; J0280; J2785

== ENCOUNTER → 2024-01-18 09:34 | Outpatient (BNV) | payer OTHER, SELFPAY | PROVIDERS: PCP Internal Medicine; Visit Provider Nurse Practitioner | DX: I25.5 Ischemic cardiomyopathy (principal) | CPT/HCPCS: 78452; 93016; 93018 ==

== ENCOUNTER → 2024-01-25 23:59 | Outpatient (BNV) | payer OTHER, SELFPAY ==
--- NOTE | 2024-01-25 17:12 | MHC.OFFVIS ---
Intake Visit Reasons: Remote [facility] Allergies lactose Allergy (Intermediate, Verified 01/11/24 10:35) Vomiting amlodipine Allergy (Mild, Verified 01/11/24 10:35) leg edema liraglutide [From VICTOZA] Allergy (Mild, Verified 01/11/24 10:35) VOMITING RUBI PFSH Medical History (Updated 12/04/23 @ 15:08 by Shara Grimes MD) Acute on chronic renal failure CHF exacerbation Afib Restrictive lung disease CKD (chronic kidney disease) stage 4, GFR 15-29 ml/min Right hemiparesis Cerebrovascular accident (CVA) due to occlusion of left middle cerebral artery Skin lesion Lumbar degenerative disc disease CKD (chronic kidney disease) BRYNN (obstructive sleep apnea) Arthritis Hypercholesteremia CAD (coronary artery disease) Sinusitis Stroke Asthma Hypertension Diabetes Surgical History History of esophagogastroduodenoscopy (EGD) H/O colonoscopy History of bilateral tubal ligation History of heart surgery History of coronary angioplasty with insertion of stent History of cataract surgery H/O right breast biopsy Family History Father Stroke Mother Myocardial infarction Paternal Uncle Cancer Family/Other Breast cancer Social History Household Members: Family Housing: House Are you a primary specialist wound care to a significant other at home: No Alcohol intake: never Comment: family at bedside Patient Tobacco Use Status: Never used Tobacco e-Cigarette/Vaping Use: Never Used Second Hand Smoke Exposure: No Advance Directives Date on File: 01/25/22 service: No Current occupational status: unemployed and disabled Sexual orientation: Straight/Heterosexual Gender identity: Female Cognitive needs: Yes Hearing needs: No Vision needs: No Female Reproductive History Menstrual Age of Menarche: 14 Office Procedures Cardiac Device Check Cardiac Device Check Details: Monitoring period dates: 12/26/23- 01/25/24 Optimal PA pressure range: LOREN 30mmhg Procedure code: 89510 BACKGROUND: Anna is implanted with the CardioMEMS PA Sensor.? I use this technology to monitor PA pressures on a weekly basis to ensure patients are within their optimal range to prevent decompensation.? SUMMARY:? I utilized the remote monitoring platform ([employer]) to set optimal targets for pulmonary artery pressure thresholds as part of acute and chronic management of patient?s heart failure. During the period indicated above, I monitored the patient?s pulmonary artery pressures weekly via trend analysis and notification reports which provide alerts when patient?s PA pressures were outside of range to prompt immediate action in medication changes and communications.? The weekly reports are archived in the [employer] system which serve as a parallel record to document weekly PA pressures, medication changes, and clinical notes. I have reviewed readings on 12/25, 01/01, 01/08, 01/15, 01/22.Her LOREN readings have ranged between 31-44mmgh. She has been instructed to take additional diuretics when readings were elevated. 73844 - Remote monitoring of wireless pulmonary artery pressure sensor Procedure code (CPT) selection complete Quality Reporting (2019) Adult ([facility] ) Smoking risk assessment performed?: Yes Patient Tobacco Use Status: Never used Tobacco Assessment & Plan Assessment & Plan (1) Presence of CardioMEMS HF system: Code(s): Z95.818 - Presence of other cardiac implants and grafts Category: Medical Plan: monthly report Coding Level of Care Code Procedure Only Diagnoses Presence of CardioMEMS HF system Z95.818 CPT Codes Cardiac Device Check - Cardiac Device 17: 11489 - Remote monitoring of wireless pulmonary artery pressure sensor ([id number])
== END ==
PROVIDERS: PCP Internal Medicine; Visit Provider Nurse Practitioner Family
DX: Z45.09 Encounter for adjustment and management of other cardiac device (principal)
CPT/HCPCS: 93264

== ENCOUNTER 2024-02-05 14:42 | Outpatient (AMB) | payer OTHER, SELFPAY ==
--- NOTE | 2024-02-05 15:03 | MHC.OFFVIS ---
Vital Signs 02/05/24 15:04 Height 5 ft 2 in Weight 215 lb 9.793 oz BMI 39.4 BP 124/57 L Blood Pressure Location Lt brachial Position Sitting Pulse 73 Pulse Source Pulse Oximeter Intake Visit Reasons: follow-up stress results Pathologist Required: No Accompanied by: Daughter Allergies lactose Allergy (Intermediate, Verified 01/11/24 10:35) Vomiting amlodipine Allergy (Mild, Verified 01/11/24 10:35) leg edema liraglutide [From VICTOZA] Allergy (Mild, Verified 01/11/24 10:35) VOMITING RUBI Medication List - Last Reconciled 02/05/24 by EWELINA Martin albuterol sulfate 90 mcg/actuation 2 puffs inhalation Q6H PRN 30 days alprazolam (Xanax) 0.5 mg PO BEDTIME PRN 5 days amitriptyline 25 mg PO BEDTIME apixaban (Eliquis) 5 mg PO BID 90 days ascorbic acid (vitamin C) (Vitamin C With Allie Hips) 500 mg PO DAILY 90 days blood sugar diagnostic As directed cholecalciferol (vitamin D3) 50 mcg PO DAILY 90 days clopidogrel (Plavix) 75 mg PO DAILY clotrimazole 1% 1 appl topical BID 4 weeks commode As directed dapagliflozin propanediol (Farxiga) 10 mg PO DAILY furosemide 40 mg PO BID gabapentin 300 mg PO BID 30 days hydralazine 25 mg PO BID insulin regular hum U-500 conc 0 - 450 units subcut DAILY PRN lactulose 10 grams (15 mL) PO BEDTIME PRN 30 days metoprolol tartrate 50 mg (2 x 25 mg) PO BID 90 days [pulse oximeter As directed] rosuvastatin 40 mg PO DAILY 90 days sennosides (Senna Laxative) 17.2 mg (2 x 8.6 mg) PO BEDTIME PRN 30 days Shower Chair As directed walker with seat and wheels HPI HPI follow-up stress results: Details: Anna is a 63-year-old female past medical history of hypertension, hyperlipidemia, diabetes, obesity, sleep apnea with CPAP use, CAD with coronary stent, status post coronary artery bypass grafting, diastolic Congestive heart failure with CardioMEMS device in place, CKD who recently underwent a nuclear stress test and presents for follow-up. Today she reports that she has been doing well since her visit in September. She has no concerning symptoms to offer. She denies chest discomfort at rest or with activity. No shortness of breath, PND, orthopnea or edema. She was feel brief palpitations in the night when laying down. No sustained rapid or irregular heart rates. No dizziness, presyncope, syncope, falls. Sleeps in a hospital bed with the head of the bed elevated which is her norm. Ambulates with a walker. Daughter is present. Daughter assists with medications. Compliant with CardioMEMS readings. [facility] Medical History Acute on chronic renal failure CHF exacerbation Afib Restrictive lung disease CKD (chronic kidney disease) stage 4, GFR 15-29 ml/min Right hemiparesis Cerebrovascular accident (CVA) due to occlusion of left middle cerebral artery Skin lesion Lumbar degenerative disc disease CKD (chronic kidney disease) BRYNN (obstructive sleep apnea) Arthritis Hypercholesteremia CAD (coronary artery disease) Sinusitis Stroke Asthma Hypertension Diabetes Surgical History History of esophagogastroduodenoscopy (EGD) H/O colonoscopy History of bilateral tubal ligation History of heart surgery History of coronary angioplasty with insertion of stent History of cataract surgery H/O right breast biopsy Family History Father Stroke Mother Myocardial infarction Paternal Uncle Cancer Family/Other Breast cancer Social History Household Members: Family Housing: House Are you a primary laboratory animal care veterinarian to a significant other at home: No Alcohol intake: never Comment: family at bedside Patient Tobacco Use Status: Never used Tobacco e-Cigarette/Vaping Use: Never Used Second Hand Smoke Exposure: No Advance Directives Date on File: 01/25/22 service: No Current occupational status: unemployed and disabled Sexual orientation: Straight/Heterosexual Gender identity: Female Cognitive needs: Yes Hearing needs: No Vision needs: No Female Reproductive History Menstrual Age of Menarche: 14 Review of Systems Const All systems reviewed & are unremarkable except as noted in HPI and below Denies chills, Denies fatigue, Denies fever(s), Denies weight gain and Denies weight loss ENT Denies dizziness Card Denies chest pain, Denies leg edema, Denies lightheadedness, Reports palpitations (at night), Denies dyspnea on exertion, Denies orthopnea and Denies other Resp Denies cough and Denies dyspnea on exertion GI Denies hematochezia and Denies change in stool character Musc Reports abnormal gait (uses walker), Denies muscle weakness, Denies numbness, Denies radiating pain into limb and Denies tingling Neuro Reports abnormal gait (uses walker), Denies dizziness, Denies numbness and Denies tingling Endo Denies fatigue and Reports palpitations (at night) Physical Exam Vital Signs: Last Vital Signs Pulse 73 02/05/24 15:04 BP 124/57 L 02/05/24 15:04 BMI result Body Mass Index 39.4 Const General: cooperative, healthy appearing, comfortable and no acute distress Orientation/consciousness: patient oriented x3 Neck Neck: Yes normal visual inspection Resp Effort & Inspection: normal respiratory effort Auscultation: clear to auscultation bilaterally, no rales, no rhonchi and no wheezes Cardio Rate: regular rate Rhythm: regular rhythm Heart sounds: S1 normal heart sound present, S2 normal heart sound present, no murmurs and no rubs Neuro General: patient oriented x3 Extrem Other: soft edema lower legs Right > Left Psych Appearance: grossly normal Mental Status: mental status grossly normal Speech and movement: Normal speech and movement present Quality Reporting (2019) Adult ([facility] 138/06/22/68) Smoking risk assessment performed?: Yes Patient Tobacco Use Status: Never used Tobacco Assessment & Plan Assessment & Plan (1) Chronic heart failure with preserved ejection fraction (HFpEF): Code(s): I50.32 - Chronic diastolic (congestive) heart failure Category: Medical Plan: History of Heart failure preserved ejection fraction. Has been difficult to control in the past and CardioMEMS device was placed. This helps to monitor her PA readings to allow for more immediate evaluation and treatment. She has been compliant with her readings. At times her PA pressures are elevated and her diuretics are temporarily increased for a few days. Today she reports that she is doing well with no concerning symptoms. On exam she does not appear fluid overloaded with the exception of some mild ankle edema. Discussed low-salt diet, leg elevation when sitting. Will continue with current Lasix. Signs and symptoms of heart failure reviewed with her. She has known chronic kidney disease. Labs done 11/01/2023 showed creatinine 1.68 which is similar to prior values. Continue dapagliflozin and aggressive blood pressure control. Encouraged to participate in regular physical activity as tolerated. Continue CPAP use. Cardiology follow-up 4 months, sooner if needed. (2) CAD (coronary artery disease): Code(s): I25.10 - Atherosclerotic heart disease of [place] coronary artery without angina pectoris Category: Medical Plan: History of CAD with prior stenting as well as coronary artery bypass grafting. Nuclear stress test was recently done to assess graft patency. Stress done 01/18/2024 does show mid to distal LAD territory ischemia, mild intensity. Patient denies any anginal sounding symptoms. Reviewed with Dr. Horton. Will continue with medical management at this time. Signs and symptoms of angina reviewed with her. Instructed to notify this office if she has new symptoms or to seek emergency care if symptoms not relieved with rest. Continue aggressive risk factor modification. She is not on aspirin as she is on Eliquis. She continues on Plavix. Continue aggressive blood pressure control- currently with hydralazine, metoprolol, Lasix. Aggressive diabetes management goal hemoglobin A1c less than 7%. Continue rosuvastatin 40 mg daily with LDL goal less than 70 mg/dL. (3) Paroxysmal atrial fibrillation: Code(s): I48.0 - Paroxysmal atrial fibrillation Category: Medical Plan: History of paroxysmal atrial fibrillation. Currently well controlled. Pulse is very regular on examination today. Recent EKG shows sinus rhythm. She does report occasional palpitations however only at night. She continues on metoprolol for heart rate control. She is on Eliquis for anticoagulation. No bleeding issues reported.. (4) Abnormal nuclear stress test: Code(s): R94.39 - Abnormal result of other cardiovascular function study Category: Medical Plan: As above. Continue medical management. (5) Presence of CardioMEMS HF system: Code(s): Z95.818 - Presence of other cardiac implants and grafts Category: Medical Plan: As above. PA monitoring done through our office and documented in this record. (6) CKD (chronic kidney disease) stage 3, GFR 30-59 ml/min: Code(s): N18.30 - Chronic kidney disease, stage 3 unspecified Category: Medical Qualifiers: Chronic kidney disease stage 3 subtype: stage 3b (GFR 30-44) Qualified Code(s): N18.32 - Chronic kidney disease, stage 3b Plan: Follows with Nephrology Plan Time spent on chart review, documentation, interview and assessment Coding Level of Care Code Est Pt Level 4 (45601) Complex EM visit Add On G2211 Diagnoses Chronic heart failure with preserved ejection fraction (HFpEF) I50.32 CAD (coronary artery disease) I25.10 Paroxysmal atrial fibrillation I48.0 Abnormal nuclear stress test R94.39 Presence of CardioMEMS HF system Z95.818 Stage 3b chronic kidney disease N18.32 Chronic kidney disease stage 3 subtype: stage 3b (GFR 30-44) Time Spent (min) 36
[2024-02-05 15:04] VITALS: BP 124/57; PULSE 73; BMI 39.4
== END 2024-02-05 15:46 | disposition home or self-care (01) ==
PROVIDERS: PCP Internal Medicine; Visit Provider Nurse Practitioner Family
DX: I50.32 Chronic diastolic (congestive) heart failure (principal); I25.10 Atherosclerotic heart disease of native coronary artery without angina pectoris; I48.0 Paroxysmal atrial fibrillation; R94.39 Abnormal result of other cardiovascular function study; Z95.818 Presence of other cardiac implants and grafts; N18.32 Chronic kidney disease, stage 3b
CPT/HCPCS: 99214; G2211

== ENCOUNTER → 2024-02-05 14:42 | Outpatient (BNVA) | payer OTHER, SELFPAY | PROVIDERS: PCP Internal Medicine; Visit Provider Nurse Practitioner Family | DX: I13.0 Hypertensive heart and chronic kidney disease with heart failure and stage 1 through stage 4 chronic kidney disease, or unspecified chronic kidney disease (principal); I50.32 Chronic diastolic (congestive) heart failure; I25.10 Atherosclerotic heart disease of native coronary artery without angina pectoris; I48.0 Paroxysmal atrial fibrillation; N18.32 Chronic kidney disease, stage 3b; R94.39 Abnormal result of other cardiovascular function study; Z95.5 Presence of coronary angioplasty implant and graft; Z95.1 Presence of aortocoronary bypass graft; Z95.818 Presence of other cardiac implants and grafts | CPT/HCPCS: 99212 ==

== ENCOUNTER → 2024-02-29 23:59 | Outpatient (BNV) | payer OTHER, SELFPAY ==
--- NOTE | 2024-03-01 17:21 | A.OFFVIS_ITS ---
Intake Visit Reasons: Remote Cardiom[facility] Allergies lactose Allergy (Intermediate, Verified 01/11/24 10:35) Vomiting amlodipine Allergy (Mild, Verified 01/11/24 10:35) leg edema liraglutide [From VICTOZA] Allergy (Mild, Verified 01/11/24 10:35) VOMITING RUBI PFSH Medical History Acute on chronic renal failure CHF exacerbation Afib Restrictive lung disease CKD (chronic kidney disease) stage 4, GFR 15-29 ml/min Right hemiparesis Cerebrovascular accident (CVA) due to occlusion of left middle cerebral artery Skin lesion Lumbar degenerative disc disease CKD (chronic kidney disease) BRYNN (obstructive sleep apnea) Arthritis Hypercholesteremia CAD (coronary artery disease) Sinusitis Stroke Asthma Hypertension Diabetes Surgical History History of esophagogastroduodenoscopy (EGD) H/O colonoscopy History of bilateral tubal ligation History of heart surgery History of coronary angioplasty with insertion of stent History of cataract surgery H/O right breast biopsy Family History Father Stroke Mother Myocardial infarction Paternal Uncle Cancer Family/Other Breast cancer Social History Household Members: Family Housing: House Are you a primary health care attorney to a significant other at home: No Alcohol intake: never Comment: family at bedside Patient Tobacco Use Status: Never used Tobacco e-Cigarette/Vaping Use: Never Used Second Hand Smoke Exposure: No Advance Directives Date on File: 01/25/22 service: No Current occupational status: unemployed and disabled Sexual orientation: Straight/Heterosexual Gender identity: Female Cognitive needs: Yes Hearing needs: No Vision needs: No Female Reproductive History Menstrual Age of Menarche: 14 Office Procedures Cardiac Device Check Cardiac Device Check Details: Monitoring period dates: 01/26/24- 02/29/24 Optimal PA pressure range: LOREN 30mmhg Procedure code: 70867 BACKGROUND: Anna is implanted with the CardioMEMS PA Sensor.? I use this technology to monitor PA pressures on a weekly basis to ensure patients are within their optimal range to prevent decompensation.? SUMMARY:? I utilized the remote monitoring platform ([employer]) to set optimal targets for pulmonary artery pressure thresholds as part of acute and chronic management of patient?s heart failure. During the period indicated above, I monitored the patient?s pulmonary artery pressures weekly via trend analysis and notification reports which provide alerts when patient?s PA pressures were outside of range to prompt immediate action in medication changes and communications.? The weekly reports are archived in the [employer] system which serve as a parallel record to document weekly PA pressures, medication changes, and clinical notes. I have reviewed readings on 01/28, 02/04, 02/11, 02/18, 02/22, 02/28. Her LOREN readings have ranged between 29 - 40mmhg. She has been directed to take addition diuretics when her readings were elevated. 68708 - Remote monitoring of wireless pulmonary artery pressure sensor Procedure code (CPT) selection complete Quality Reporting (2019) Adult ([facility] 138/06/22/68) Smoking risk assessment performed?: Yes Patient Tobacco Use Status: Never used Tobacco Assessment & Plan Assessment & Plan (1) Presence of CardioMEMS HF system: Code(s): Z95.818 - Presence of other cardiac implants and grafts Category: Medical Plan: monthly report Coding Level of Care Code Procedure Only Diagnoses Presence of CardioMEMS HF system Z95.818 CPT Codes Cardiac Device Check - Cardiac Device 17: 21908 - Remote monitoring of wireless pulmonary artery pressure sensor ([id number])
== END ==
PROVIDERS: PCP Internal Medicine; Visit Provider Nurse Practitioner Family
DX: Z45.09 Encounter for adjustment and management of other cardiac device (principal)
CPT/HCPCS: 93264

== ENCOUNTER 2024-03-04 13:43 | Outpatient (AMB) | payer OTHER, SELFPAY ==
--- NOTE | 2024-03-04 13:53 | MHC.OFFVIS ---
Vital Signs 03/04/24 13:55 BP 126/68 Blood Pressure Location Rt brachial Position Sitting Pulse 68 Pulse Source Pulse Oximeter Pulse Oximetry (%) 94 Oxygen Delivery Method Room Air Intake Visit Reasons: Obstructive sleep apnea Allergies lactose Allergy (Intermediate, Verified 03/04/24 14:07) Vomiting amlodipine Allergy (Mild, Verified 03/04/24 14:07) leg edema liraglutide [From VICTOZA] Allergy (Mild, Verified 03/04/24 14:07) VOMITING RUBI Medication List - Last Reconciled 03/04/24 by Masha Taylor LPN albuterol sulfate 90 mcg/actuation 2 puffs inhalation Q6H PRN 30 days alprazolam (Xanax) 0.5 mg PO BEDTIME PRN 5 days amitriptyline 25 mg PO BEDTIME amlodipine 5 mg PO DAILY apixaban (Eliquis) 5 mg PO BID 90 days ascorbic acid (vitamin C) (Vitamin C With Allie Hips) 500 mg PO DAILY 90 days blood sugar diagnostic As directed cholecalciferol (vitamin D3) 50 mcg PO DAILY 90 days clopidogrel (Plavix) 75 mg PO DAILY clotrimazole 1% 1 appl topical BID 4 weeks commode As directed dapagliflozin propanediol (Farxiga) 10 mg PO DAILY furosemide 40 mg PO BID gabapentin 300 mg PO BID 30 days hydralazine 25 mg PO BID insulin regular hum U-500 conc 0 - 450 units subcut DAILY PRN lactulose 10 grams (15 mL) PO BEDTIME PRN 30 days metoprolol tartrate 50 mg (2 x 25 mg) PO BID 90 days [pulse oximeter As directed] rosuvastatin 40 mg PO DAILY 90 days sennosides (Senna Laxative) 17.2 mg (2 x 8.6 mg) PO BEDTIME PRN 30 days Shower Chair As directed walker with seat and wheels Do you need a note to return to daycare/school/sports/work: No HPI HPI Obstructive sleep apnea: Details: This 63 years old Syriac-speaking female is very pleasant, grossly obese, and has diagnosis of obstructive sleep apnea. She is here for follow-up, claims that she uses the CPAP every night, on some nights when she goes to the bathroom she may not put the CPAP back on. Recently she was hospitalized for a few days and missed using the CPAP. She has multiple comorbidities including hypertension ,congestive heart failure, chronic atrial fibrillation, diabetes mellitus anxiety She has albuterol HFA on hand but uses it only rarely. [facility] Medical History Acute on chronic renal failure CHF exacerbation Afib Restrictive lung disease CKD (chronic kidney disease) stage 4, GFR 15-29 ml/min Right hemiparesis Cerebrovascular accident (CVA) due to occlusion of left middle cerebral artery Skin lesion Lumbar degenerative disc disease CKD (chronic kidney disease) BRYNN (obstructive sleep apnea) Arthritis Hypercholesteremia CAD (coronary artery disease) Sinusitis Stroke Asthma Hypertension Diabetes Surgical History History of esophagogastroduodenoscopy (EGD) H/O colonoscopy History of bilateral tubal ligation History of heart surgery History of coronary angioplasty with insertion of stent History of cataract surgery H/O right breast biopsy Family History Father Stroke Mother Myocardial infarction Paternal Uncle Cancer Family/Other Breast cancer Social History Household Members: Family Housing: House Are you a primary director career services to a significant other at home: No Alcohol intake: never Comment: family at bedside Patient Tobacco Use Status: Never used Tobacco e-Cigarette/Vaping Use: Never Used Second Hand Smoke Exposure: No Advance Directives Date on File: 01/25/22 service: No Current occupational status: unemployed and disabled Sexual orientation: Straight/Heterosexual Gender identity: Female Cognitive needs: Yes Hearing needs: No Vision needs: No Female Reproductive History Menstrual Age of Menarche: 14 Review of Systems Const All systems reviewed & are unremarkable except as noted in HPI and below Eyes Reports no additional complaints ENT Reports nasal congestion (MILD OFF AND ON) Card Denies chest pain, Reports irregular heart rhythm (PAROXYSMAL ATRIAL FIB) and Denies leg edema Resp Reports as per HPI GI Reports no additional complaints Reports no additional complaints Musc Reports abnormal gait (UNSTABLE ON FEET, USES WALKER FOR STABILITY), Reports back pain and Reports myalgias Skin/Breast Reports system reviewed and no additional complaints, except as documented Neuro Reports abnormal gait (UNSTABLE ON FEET, USES WALKER FOR STABILITY) Psych Reports no additional complaints Endo Reports other (DIABETES MELLITUS) Physical Exam Const General: comfortable, no acute distress, alert and awake Orientation/consciousness: patient oriented x3 HEENT Head: Yes normal to inspection General nose exam: No nasal polyps present, No nasal discharge present and Other nasal findings present (Minimal, irritation over the nasal septumon right side is noted,no bleeding) Face and sinus: Yes sinuses nontender Mouth: oropharynx normal Throat: Yes posterior oropharynx normal Eyes General: appearance normal, both eyes and all related structures Neck Neck: Yes normal visual inspection, Yes no lymphadenopathy, Yes trachea midline and Yes no JVD Thyroid: Thyroid normal Chest Chest palpation & inspection: normal inspection of the chest, normal palpation of entire chest wall and no tenderness Resp Other: PERCUSSION NOTE NOT PERCEPTIBLE BECAUSE OF THICK CHEST WALL. BREATH SOUNDS ARE DISTANT BUT EQUAL ON BOTH SIDES. NO WHEEZES CREPITATIONS OR RHONCHI ARE HEARD. Cardio Palpation: normal PMI Rate: regular rate Rhythm: regular rhythm Heart sounds: no gallops and no murmurs GI Palpation (GI): Soft to palpation, nontender, No hepatosplenomegaly present, no masses and Other GI palpation findings present (ABDOMEN MODERATELY OBESE AND PROTUBERANT) Auscultation: normal bowel sounds Back/Spine/Pelvis Thoracic/Lumbar Spine: thoracic and lumbar spine normal to inspection and thoraco-lumbar ROM limited Skin General skin exam: dry skin Neuro General: patient oriented x3 and No no focal motor deficits (WEAKNESS OF LOWER EXTREMITIES) Cranial nerves: Yes CN's II-XII intact bilaterally Extrem General: Yes normal to inspection, Yes no calf tenderness and Yes edema (2 + EDEMA OF THE LEGS ) Psych Appearance: grossly normal and well kempt Speech and movement: Normal speech and movement present Quality Reporting (2020) Adult ([facility] 138/06/22/68) Smoking risk assessment performed?: Yes Patient Tobacco Use Status: Never used Tobacco Results Reviewed Results Reviewed: COMPLIANCE REPORT FOR THE LAST 30 NIGHTS IS REVIEWED. SHE HAS USED /30 NIGHTS. MISSED 4 NIGHTS BECAUSE SHE. WAS IN THE HOSPITAL AVERAGE USE IT PER NIGHT 4 HOURS 33 MINUTES. PRESSURE USED. 7 CM THERE IS MODERATE AIR LEAK 110.6 L RESIDUAL AHI 4.3 Assessment & Plan Assessment & Plan (1) BRYNN on CPAP: Comment: LONGSTANDING HISTORY OF OBSTRUCTIVE SLEEP APNEA. PRESSURE SETTING 7 CM. FF MASK SHE IS USING IT REGULARLY EVERY NIGHT. THERE IS SOME AIR LEAK . Code(s): G47.33 - Obstructive sleep apnea (adult) (pediatric); Z99.89 - Dependence on other enabling machines and devices Category: Medical Plan: DISCUSSED WITH HER ABOUT PROPER USAGE. TRY TO STRAIGHTEN THE STRAPS. USE MORE THAN 4 HOURS EVERY NIGHT. (2) Restrictive lung disease: Comment: KNOWN TO HAVE RESTRICTIVE LUNG DISEASE SINCE THE HER PULMONARY FUNCTION TEST IN 2012. CLINICALLY I AM SURE SHE DOES HAVE MODERATE DEGREE OF RESTRICTION, THIS IS SECONDARY TO MORBID OBESITY. SHE ALSO SEEM TO HAVE MILD DEGREE OF ASTHMA/REACTIVE AIRWAYS. Code(s): J98.4 - Other disorders of lung Category: Medical Plan: TRY TO DO DEEP BREATHING EXERCISES 3 TIMES A DAY. USE ALBUTEROL 2 PUFFS Q 6 HOURS ONLY P.R.N. IF THERE IS SOME WHEEZING (3) Morbid obesity: Comment: SHE REMAINS GROSSLY OBESE. NOT IN ANY WEIGHT MANAGEMENT PROGRAM . NOT ABLE TO DO ANY EXERCISE, WALKS SLOW WITH WALKER. Code(s): E66.01 - Morbid (severe) obesity due to excess calories Category: Medical Plan: HER INCREASE IN DECREASE IN THE WEIGHT DEPENDS UPON THE AMOUNT OF FLUID THAT SHE RETAINS. PRACTICALLY DIFFICULT FOR HER TO LOSE ANY WEIGHT. Coding Level of Care Code Est Pt Level 3 (82869) Diagnoses BRYNN on CPAP G47.33; Z99.89 Restrictive lung disease J98.4 Morbid obesity E66.01
[2024-03-04 13:55] VITALS: BP 126/68; PULSE 68; O2SAT 94
== END 2024-03-04 14:08 | disposition home or self-care (01) ==
LOC: HO.HPS 13:51
PROVIDERS: PCP Internal Medicine; Visit Provider Internal Medicine
DX: G47.33 Obstructive sleep apnea (adult) (pediatric) (principal); Z99.89 Dependence on other enabling machines and devices; J98.4 Other disorders of lung; E66.01 Morbid (severe) obesity due to excess calories
CPT/HCPCS: 99213

== ENCOUNTER → 2024-03-04 13:43 | Outpatient (BNVA) | payer OTHER, SELFPAY | PROVIDERS: PCP Internal Medicine; Visit Provider Internal Medicine | DX: J98.4 Other disorders of lung (principal); G47.33 Obstructive sleep apnea (adult) (pediatric); E66.01 Morbid (severe) obesity due to excess calories; I11.0 Hypertensive heart disease with heart failure; I50.9 Heart failure, unspecified; I48.20 Chronic atrial fibrillation, unspecified; Z99.89 Dependence on other enabling machines and devices | CPT/HCPCS: 99212 ==

== ENCOUNTER → 2024-04-02 23:59 | Outpatient (BNV) | payer OTHER, SELFPAY ==
--- NOTE | 2024-04-12 12:12 | MHC.OFFVIS ---
Intake Visit Reasons: Remote [facility]- [facility] Allergies lactose Allergy (Intermediate, Verified 03/04/24 14:07) Vomiting amlodipine Allergy (Mild, Verified 03/04/24 14:07) leg edema liraglutide [From VICTOZA] Allergy (Mild, Verified 03/04/24 14:07) VOMITING RUBI PFSH Medical History Acute on chronic renal failure CHF exacerbation Afib Restrictive lung disease CKD (chronic kidney disease) stage 4, GFR 15-29 ml/min Right hemiparesis Cerebrovascular accident (CVA) due to occlusion of left middle cerebral artery Skin lesion Lumbar degenerative disc disease CKD (chronic kidney disease) BRYNN (obstructive sleep apnea) Arthritis Hypercholesteremia CAD (coronary artery disease) Sinusitis Stroke Asthma Hypertension Diabetes Surgical History History of esophagogastroduodenoscopy (EGD) H/O colonoscopy History of bilateral tubal ligation History of heart surgery History of coronary angioplasty with insertion of stent History of cataract surgery H/O right breast biopsy Family History Father Stroke Mother Myocardial infarction Paternal Uncle Cancer Family/Other Breast cancer Social History Household Members: Family Housing: House Are you a primary healthcare insurance sales agent to a significant other at home: No Alcohol intake: never Comment: family at bedside Patient Tobacco Use Status: Never used Tobacco e-Cigarette/Vaping Use: Never Used Second Hand Smoke Exposure: No Advance Directives Date on File: 01/25/22 service: No Current occupational status: unemployed and disabled Sexual orientation: Straight/Heterosexual Gender identity: Female Cognitive needs: Yes Hearing needs: No Vision needs: No Female Reproductive History Menstrual Age of Menarche: 14 Office Procedures Cardiac Device Check Cardiac Device Check Details: Monitoring period dates: 03/01/24 - 04/02/24 Optimal PA pressure range: LOREN goal 30mmhg Procedure code: 92821 BACKGROUND: Anna is implanted with the CardioMEMS PA Sensor.? I use this technology to monitor PA pressures on a weekly basis to ensure patients are within their optimal range to prevent decompensation.? SUMMARY:? I utilized the remote monitoring platform ([employer]) to set optimal targets for pulmonary artery pressure thresholds as part of acute and chronic management of patient?s heart failure. During the period indicated above, I monitored the patient?s pulmonary artery pressures weekly via trend analysis and notification reports which provide alerts when patient?s PA pressures were outside of range to prompt immediate action in medication changes and communications.? The weekly reports are archived in the [employer] system which serve as a parallel record to document weekly PA pressures, medication changes, and clinical notes. I have reviewed readings on 03/01, 03/08, 03/15, 03/22, 04/02. LOREN has ranged between 30-38mmhg. She has been instructed to take additional diuretics when readings were elevated. 73224 - Remote monitoring of wireless pulmonary artery pressure sensor Procedure code (CPT) selection complete Quality Reporting (2019) Adult ([facility] ) Smoking risk assessment performed?: Yes Patient Tobacco Use Status: Never used Tobacco Assessment & Plan Assessment & Plan (1) Presence of CardioMEMS HF system: Code(s): Z95.818 - Presence of other cardiac implants and grafts Category: Medical Plan: monthly report Coding Level of Care Code Procedure Only Diagnoses Presence of CardioMEMS HF system Z95.818 CPT Codes Cardiac Device Check - Cardiac Device 17: 82576 - Remote monitoring of wireless pulmonary artery pressure sensor ([id number])
== END ==
PROVIDERS: PCP Internal Medicine; Visit Provider Nurse Practitioner Family
DX: Z45.09 Encounter for adjustment and management of other cardiac device (principal)
CPT/HCPCS: 93264

== ENCOUNTER 2024-04-29 13:36 | Outpatient (AMB) | payer OTHER, SELFPAY ==
[2024-04-29 13:53] VITALS: BP 102/60; BMI 38.8
--- NOTE | 2024-04-29 13:53 | A.OFFPC_ITS ---
Vital Signs 04/29/24 13:53 Height 5 ft 2 in Weight 212 lb BMI 38.8 BP 102/60 Blood Pressure Location Lt brachial Position Sitting Intake Visit Reasons: DM Intake Note: Patient here for a follow up DM Frit Mixer Required: No Accompanied by: Daughter Allergies lactose Allergy (Intermediate, Verified 04/29/24 14:07) Vomiting amlodipine Allergy (Mild, Verified 04/29/24 14:07) leg edema liraglutide [From VICTOZA] Allergy (Mild, Verified 04/29/24 14:07) VOMITING RUBI Medication List - Last Reconciled 04/29/24 by Shara Grimes MD albuterol sulfate 90 mcg/actuation 2 puffs inhalation Q6H PRN 30 days alprazolam (Xanax) 0.5 mg PO BEDTIME PRN 5 days amitriptyline 25 mg PO BEDTIME 90 days amlodipine 5 mg PO DAILY apixaban (Eliquis) 5 mg PO BID 90 days ascorbic acid (vitamin C) (Vitamin C With Allie Hips) 500 mg PO DAILY 90 days blood sugar diagnostic As directed cholecalciferol (vitamin D3) 50 mcg PO DAILY 90 days clopidogrel (Plavix) 75 mg PO DAILY clotrimazole 1% 1 appl topical BID 4 weeks commode As directed dapagliflozin propanediol (Farxiga) 10 mg PO DAILY furosemide 40 mg PO BID gabapentin 300 mg PO BID 30 days hydralazine 25 mg PO BID insulin regular hum U-500 conc 0 - 450 units subcut DAILY PRN lactulose 10 grams (15 mL) PO BEDTIME PRN 30 days metoprolol tartrate 50 mg (2 x 25 mg) PO BID 90 days [pulse oximeter As directed] rosuvastatin 40 mg PO DAILY 90 days sennosides (Senna Laxative) 17.2 mg (2 x 8.6 mg) PO BEDTIME PRN 30 days Shower Chair As directed walker with seat and wheels Tobacco use date assessed: 07/25/23 Dental Screening Dental Screen Date: 12/04/23 HPI HPI Comments History of Present Illness Details The patient is a 63-year-old female presenting for follow-up management of Congestive Heart Failure and Chronic Kidney Disease. The patient reports successful weight management, with a recent weight loss of approximately four pounds, notable during the holiday season. Historically, renal function has been monitored, with a noted Glomerular Filtration Rate (GFR) previously recorded at 31. Her congestive heart failure and atrial fibrillation as follow by cardiology. Medications for the management of hyperlipidemia and congestive heart failure include metoprolol and rosuvastatin. The patient also uses lactulose for constipation. The discussion included the potential use of amlodipine and an acknowledgement of the patient's current adherence and stability. No acute symptoms were reported, and the patient's regular review with nephrology is scheduled. The patient denies tobacco and alcohol use. She has diabetes mellitus type 2 on insulin pump and follows with endocrinology in which A1c today is 8.1% which has mildly improved. She is accompanied by harvest contractor which is her daughter. [facility] Medical History (Updated 04/29/24 @ 19:42 by Shara Grimes MD) Acute on chronic renal failure CHF exacerbation Afib Restrictive lung disease CKD (chronic kidney disease) stage 4, GFR 15-29 ml/min Right hemiparesis Cerebrovascular accident (CVA) due to occlusion of left middle cerebral artery Skin lesion Lumbar degenerative disc disease CKD (chronic kidney disease) BRYNN (obstructive sleep apnea) Arthritis Hypercholesteremia CAD (coronary artery disease) Sinusitis Stroke Asthma Hypertension Diabetes Surgical History History of esophagogastroduodenoscopy (EGD) H/O colonoscopy History of bilateral tubal ligation History of heart surgery History of coronary angioplasty with insertion of stent History of cataract surgery H/O right breast biopsy Family History Father Stroke Mother Myocardial infarction Paternal Uncle Cancer Family/Other Breast cancer Social History Household Members: Family Housing: House Are you a primary client care consultant to a significant other at home: No Alcohol intake: never Comment: family at bedside Patient Tobacco Use Status: Never used Tobacco e-Cigarette/Vaping Use: Never Used Second Hand Smoke Exposure: No Advance Directives Date on File: 01/25/22 service: No Current occupational status: unemployed and disabled Sexual orientation: Straight/Heterosexual Gender identity: Female Cognitive needs: Yes Hearing needs: No Vision needs: No Female Reproductive History Menstrual Age of Menarche: 14 Questionnaire Thrive Questionnaire Date Thrive assessed: 07/25/23 SILVANA-7 AMB Questionnaire SILVANA-7 Date SILVANA - 7 assessed: 07/25/23 Source: Developed by Drs. Royce Nielsen, Sarah Dunbar, Farhan Bird and colleagues, with an educational maya from [employer]. Review of Systems Const All systems reviewed & are unremarkable except as noted in HPI and below Card Denies chest pain at rest, Denies chest pain with activity, Denies edema, Denies irregular heart rhythm, Denies claudication, Denies dyspnea, Denies dyspnea on exertion, Denies orthopnea, Denies paroxysmal nocturnal dyspnea and Denies slow heart rate Resp Denies cough, Denies dyspnea and Denies dyspnea on exertion GI Denies abdominal pain, Denies change in bowel habits, Denies excessive flatus, Denies nausea and Denies vomiting Denies urinary incontinence, Denies urinary hesitancy and Denies urinary urgency Physical exam (Primary Care) Vital Signs: Last Vital Signs BP 102/60 04/29/24 13:53 BMI result Body Mass Index 38.8 BMI Assessment/Plan discussion: High BMI High, discussed plan: lifestyle, weight reduction, dietary and physical activity Tobacco/Smoking Status: Tobacco use Status Tobacco use date assessed 07/25/23 04/29/24 13:58 Patient Tobacco Use Status Never used Tobacco 04/29/24 13:58 e-Cigarette/Vaping Use Never Used 04/29/24 13:58 Thrive Assessment: Date of Thrive Assessment Date Thrive assessed 07/25/23 04/29/24 13:58 Const General: cooperative Limitations: ambulation with walker Resp Effort & Inspection: normal respiratory effort Auscultation: clear to auscultation bilaterally Cardio Jugular venous distension: no JVD Rate: regular rate Rhythm: regular rhythm Heart sounds: S1 normal heart sound present and S2 normal heart sound present Extrem General: Yes full ROM Office Procedures Flu Questionnaire Does the patient have a severe egg allergy?: No Results AMB Hemoglobin A1c AMB Hemoglobin A1c 8.1 % Last Edit by CHARLY Mobley on 04/29/24 14:0 4 Immunizations Fluarix Triv [id number] (PF) 45 mcg (15 mcg x 3)/0.5 mL IM syringe Performing Provider: Shara Grimes MD [facility] Documented (not given) by: CHARLY Mobley on 04/29/24 14:21 Reason Not Given: Patient Refused Results Reviewed Results Reviewed: Laboratory Last Values Hgb A1c (Clinic) 8.1 % (4.0-6.0) H 04/29/24 13:47 Coding Level of Care Code Est Pt Level 4 (93139) Complex EM visit Add On G2211 Diagnoses Stage 3b chronic kidney disease N18.32 Chronic kidney disease stage 3 subtype: stage 3b (GFR 30-44) Paroxysmal atrial fibrillation I48.0 Chronic heart failure with preserved ejection fraction (HFpEF) I50.32 Type 2 diabetes mellitus with hyperglycemia, with long-term current use of insulin E11.65; Z79.4 Diabetes mellitus complication status: with hyperglycemia Essential hypertension I10 Time Spent (min) 24 Assessment & Plan Assessment & Plan (1) CKD (chronic kidney disease) stage 3, GFR 30-59 ml/min: Code(s): N18.30 - Chronic kidney disease, stage 3 unspecified Category: Medical Qualifiers: Chronic kidney disease stage 3 subtype: stage 3b (GFR 30-44) Qualified Code(s): N18.32 - Chronic kidney disease, stage 3b (2) Paroxysmal atrial fibrillation: Code(s): I48.0 - Paroxysmal atrial fibrillation Category: Medical (3) Chronic heart failure with preserved ejection fraction (HFpEF): Code(s): I50.32 - Chronic diastolic (congestive) heart failure Category: Medical (4) Type 2 diabetes mellitus, with long-term current use of insulin: Code(s): E11.9 - Type 2 diabetes mellitus without complications; Z79.4 - torch straightener and heater (current) use of insulin Category: Medical Qualifiers: Diabetes mellitus complication status: with hyperglycemia Qualified Code(s): E11.65 - Type 2 diabetes mellitus with hyperglycemia; Z79.4 - torch straightener and heater (current) use of insulin (5) Essential hypertension: Code(s): I10 - Essential (primary) hypertension Category: Medical Plan - Continue monitoring weight and dietary intake to manage Congestive Heart Failure. - Keep current pharmacological treatment in place for hyperlipidemia, including rosuvastatin. - Manage constipation with lactulose. - Ensure adherence to nephrology follow-ups, with an appointment scheduled for the next month. - Amlodipine prescription to be considered for blood pressure management. - Perform urinalysis in early May to evaluate protein levels in urine. Patient was informed and verbally consented to the use of an ambient scribe for clinic note documentation during this visit. During our discussion, I reviewed the patient's current status regarding her Congestive Heart Failure and Chronic Kidney Disease. We acknowledged her excellent recent weight control, especially during the holiday season. There are no reports of significant symptoms or acute decompensation. Her previous kidney function, as per GFR, associates her renal status with Stage 3 Chronic Kidney Disease, and she remains under nephrology care. The patient's medication regimen appears to be effective, and we discussed the potential addition of amlodipine to optimize blood pressure control. Consent was obtained for the proposed management plan. Follow-up and surveillance of her condition through five appointments and lab tests were emphasized for ongoing management. Orders: Orders AMB Hemoglobin A1c Today E11.65 - Type 2 diabetes mellitus with hyperglycemia, Z79.4 - torch straightener and heater (current) use of insulin Vitamin D 25-OH Total Today E55.9 - Vitamin D deficiency, unspecified Lipid Panel Today E78.5 - Hyperlipidemia, unspecified Microalbumin, Random (w Creat) Today R80.9 - Proteinuria, unspecified Vitamin B12 and Folate Today E53.8 - Deficiency of other specified B group vitamins Comprehensive [place]. Panel Fast Today I48.0 - Paroxysmal atrial fibrillation, N18.32 - Chronic kidney disease, stage 3b Influenza [id number] Immunization Today Z23 - Encounter for immunization Medications: Changed From amlodipine 5 mg PO DAILY To amlodipine 5 mg PO DAILY 90 tabs 1RF 90 days Refilled sennosides (Senna Laxative) 17.2 mg (2 x 8.6 mg) PO BEDTIME PRN 60 tabs 1RF constipation 30 days Patient Instructions: - Continue current medication therapy for heart failure and hyperlipidemia. - Use lactulose as needed for constipation. - Continue dietary vigilance and monitor weight regularly. - Attend the nephrology appointment scheduled next month. - Perform a urinalysis during the first week of May to check protein levels. - Report any new symptoms or significant changes in health promptly.
== END 2024-04-29 14:18 | disposition home or self-care (01) ==
PROVIDERS: PCP Internal Medicine; Visit Provider Internal Medicine
DX: I12.9 Hypertensive chronic kidney disease with stage 1 through stage 4 chronic kidney disease, or unspecified chronic kidney disease (principal); N18.32 Chronic kidney disease, stage 3b; I48.0 Paroxysmal atrial fibrillation; I50.32 Chronic diastolic (congestive) heart failure; E11.65 Type 2 diabetes mellitus with hyperglycemia; Z79.4 Long term (current) use of insulin

== ENCOUNTER 2024-05-07 12:36 | Outpatient (REF) | payer OTHER, SELFPAY ==
--- NOTE | ~2024-05-07 | US_ITS ---
CLINICAL HISTORY: I73.9 - Peripheral vascular disease, unspecified Arterial duplex ultrasound lateral lower extremity Comparison: None Findings: Continuous, pulsatile flow with triphasic waveforms on the right and monophasic on the left, from common femoral arteries through the posterior tibial and dorsalis pedis arteries. No focal stenosis, aneurysm or occlusion identified. Velocities are within normal range. The BART is 0.75 on the right and 0.53 on the left. IMPRESSION: No hemodynamically significant stenoses on bilateral lower extremity arterial duplex. This document has been electronically signed by: Wilbert Bundy MD on 05/10/2024 08:20:27
== END 2024-05-07 12:37 | disposition home or self-care (01) ==
LOC: HO.US 12:36
PROVIDERS: PCP Internal Medicine; Visit Provider Surgery Vascular Surgery
DX: Z13.89 Encounter for screening for other disorder (principal)
CPT/HCPCS: 93923; 93925

== ENCOUNTER → 2024-05-07 12:39 | Outpatient (BNV) | payer OTHER, SELFPAY | PROVIDERS: PCP Internal Medicine; Visit Provider Specialist | DX: I73.9 Peripheral vascular disease, unspecified (principal) | CPT/HCPCS: 93922 ==

== ENCOUNTER → 2024-05-09 23:59 | Outpatient (BNV) | payer OTHER, SELFPAY ==
--- NOTE | 2024-05-14 16:41 | A.OFFVIS_ITS ---
Intake Visit Reasons: Remote [facility]- [facility] Allergies lactose Allergy (Intermediate, Verified 05/13/24 11:15) Vomiting amlodipine Allergy (Mild, Verified 05/13/24 11:15) leg edema liraglutide [From VICTOZA] Allergy (Mild, Verified 05/13/24 11:15) VOMITING RUBI PFSH Medical History Acute on chronic renal failure CHF exacerbation Afib Restrictive lung disease CKD (chronic kidney disease) stage 4, GFR 15-29 ml/min Right hemiparesis Cerebrovascular accident (CVA) due to occlusion of left middle cerebral artery Skin lesion Lumbar degenerative disc disease CKD (chronic kidney disease) BRYNN (obstructive sleep apnea) Arthritis Hypercholesteremia CAD (coronary artery disease) Sinusitis Stroke Asthma Hypertension Diabetes Surgical History History of esophagogastroduodenoscopy (EGD) H/O colonoscopy History of bilateral tubal ligation History of heart surgery History of coronary angioplasty with insertion of stent History of cataract surgery H/O right breast biopsy Family History Father Stroke Mother Myocardial infarction Paternal Uncle Cancer Family/Other Breast cancer Social History Household Members: Family Housing: House Are you a primary career services director to a significant other at home: No Alcohol intake: never Comment: family at bedside Patient Tobacco Use Status: Never used Tobacco e-Cigarette/Vaping Use: Never Used Second Hand Smoke Exposure: No Advance Directives Date on File: 01/25/22 service: No Current occupational status: unemployed and disabled Sexual orientation: Straight/Heterosexual Gender identity: Female Cognitive needs: Yes Hearing needs: No Vision needs: No Female Reproductive History Menstrual Age of Menarche: 14 Office Procedures Cardiac Device Check Cardiac Device Check Details: Monitoring period dates: 04/03/24 - 05/09/24 Optimal PA pressure range: LOREN goal 30mmhg Procedure code: 59141 BACKGROUND: Anna is implanted with the CardioMEMS PA Sensor.? I use this technology to monitor PA pressures on a weekly basis to ensure patients are within their optimal range to prevent decompensation.? SUMMARY:? I utilized the remote monitoring platform ([facility]) to set optimal targets for pulmonary artery pressure thresholds as part of acute and chronic management of patient?s heart failure. During the period indicated above, I monitored the patient?s pulmonary artery pressures weekly via trend analysis and notification reports which provide alerts when patient?s PA pressures were outside of range to prompt immediate action in medication changes and communications.? The weekly reports are archived in the [facility] system which serve as a parallel record to document weekly PA pressures, medication changes, and clinical notes. I have reviewed readings on 04/04, 04/08, 04/15, 04/22, 04/29, 05/06.. Her LOREN readings have ranged 26 - 37mmhg. When readings elevated, she has been instructed to take additional lasix dose. 11415 - Remote monitoring of wireless pulmonary artery pressure sensor Procedure code (CPT) selection complete Quality Reporting (2019) Adult ([facility] 138/06/22/68) Smoking risk assessment performed?: Yes Patient Tobacco Use Status: Never used Tobacco Assessment & Plan Assessment & Plan (1) Presence of CardioMEMS HF system: Code(s): Z95.818 - Presence of other cardiac implants and grafts Category: Medical Plan: monthly report Coding Level of Care Code Procedure Only Diagnoses Presence of CardioMEMS HF system Z95.818 CPT Codes Cardiac Device Check - Cardiac Device 17: 70657 - Remote monitoring of wireless pulmonary artery pressure sensor ([id number])
== END ==
PROVIDERS: PCP Internal Medicine; Visit Provider Nurse Practitioner Family
DX: Z45.09 Encounter for adjustment and management of other cardiac device (principal)
CPT/HCPCS: 93264

== ENCOUNTER 2024-05-10 08:36 | Outpatient (REF) | payer OTHER, SELFPAY ==
[2024-05-10 09:18] LABS: MANUAL DIFF FLAG NO
[2024-05-10 09:30] LABS: Basophils Absolute Auto 0.1 X10*3/uL (0.0-0.2); Basophils Percent Auto 0.6 % (0-2); Eosinophils Absolute Auto 0.2 X10*3/uL (0.0-0.4); Hemoglobin 12.7 g/dl (12.0-16.0); Imm Gran Abs Auto 0.03 X10*3/uL (0.00-0.03); Imm Gran Pct Auto 0.4 % (0.0-0.4); Lymphocytes Absolute Auto 2.1 X10*3/uL (1.2-4.9); Lymphocytes Percent Auto 27.5 % (20-40); Mean Corpuscular HGB Conc 31.8 g/dl (31.0-35.0); Mean Corpuscular Hemoglobin 27.9 pg (27.0-33.0); Mean Corpuscular Volume 87.9 fL (80.0-98.0); Mean Platelet Volume 10.7 fL (9.4-12.3); Monocytes Absolute Auto 0.8 X10*3/uL (0.1-1.2); Monocytes Percent Auto 9.9 % (2-11); Neutrophils Absolute Auto 4.5 x10*3/uL (2.0-8.3); Neutrophils Percent Auto 58.6 % (45-73); Platelet Count 203 X10*3/uL (160-400); Red Blood Count 4.55 X10*6/uL (4.20-5.50); Red Cell Distribution Width 15.2 % (11.0-16.0); White Blood Count 7.7 X10*3/uL (4.8-10.8)
[2024-05-10 09:57] LABS: Alanine Aminotransferase 21 U/L (0-31); Albumin Level 3.6 g/dL (3.5-5.0); Alkaline Phosphatase 64 U/L (39-117); Anion Gap 10 (12-20); Aspartate Amino Transferase 26 U/L (5-31); Bilirubin Total 0.4 mg/dL (0.0-1.0); Blood Urea Nitrogen 17 mg/dL (9-16); Calcium 9.6 mg/dL (8.4-10.2); Carbon Dioxide 37 mmol/L (22-29); Chloride 98 mmol/L (96-108); Estimated Glomerular Filt Rate 29; Glucose Random 191 mg/dL (60-115); Sodium 142 mmol/L (135-145); Total Protein 7.7 g/dL (6.5-8.0)
== END 2024-05-10 08:37 | disposition home or self-care (01) ==
LOC: HO.LAB 08:36
PROVIDERS: PCP Internal Medicine; Visit Provider Internal Medicine Hypertension Specialist
DX: N18.30 Chronic kidney disease, stage 3 unspecified (principal); N18.32 Chronic kidney disease, stage 3b
CPT/HCPCS: 36415; 80053; 83970; 85025

== ENCOUNTER 2024-05-13 09:45 | Outpatient (AMB) | payer OTHER, SELFPAY ==
[2024-05-13 10:00] VITALS: BP 130/52; PULSE 66; O2SAT 89; BMI 40.6
--- NOTE | 2024-05-13 10:00 | HO.NEPHOV_ITS ---
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 Technician Required: No Accompanied by: Daughter Allergies lactose Allergy (Intermediate, Verified 05/13/24 10:03) Vomiting amlodipine Allergy (Mild, Verified 05/13/24 10:03) leg edema liraglutide [From VICTOZA] Allergy (Mild, Verified 05/13/24 10:03) VOMITING RUBI Medication List - Last Reconciled 05/13/24 by Petar Stevens MD albuterol sulfate 90 mcg/actuation 2 puffs inhalation Q6H PRN 30 days alprazolam (Xanax) 0.5 mg PO BEDTIME PRN 5 days amitriptyline 25 mg PO BEDTIME 90 days amlodipine 5 mg PO DAILY 90 days apixaban (Eliquis) 5 mg PO BID 90 days ascorbic acid (vitamin C) (Vitamin C With Allie Hips) 500 mg PO DAILY 90 days blood sugar diagnostic As directed cholecalciferol (vitamin D3) 50 mcg PO DAILY 90 days clopidogrel (Plavix) 75 mg PO DAILY clotrimazole 1% 1 appl topical BID 4 weeks commode As directed dapagliflozin propanediol (Farxiga) 10 mg PO DAILY furosemide 40 mg PO BID gabapentin 300 mg PO BID 30 days hydralazine 25 mg PO BID insulin regular hum U-500 conc 0 - 450 units subcut DAILY PRN lactulose 10 grams (15 mL) PO BEDTIME PRN 30 days metoprolol tartrate 50 mg (2 x 25 mg) PO BID 90 days potassium chloride ER 20 mEq PO DAILY [pulse oximeter As directed] rosuvastatin 40 mg PO DAILY 90 days sennosides (Senna Laxative) 17.2 mg (2 x 8.6 mg) PO BEDTIME PRN 30 days Shower Chair As directed walker with seat and wheels HPI Comments Details: 62-year-old woman with a history of longstanding hypertension diabetes mellitus and obesity with CKD. She was accompanied by her daughter.Denies any new complaints. No urinary symptoms. She recently had an episode of gout and she completed a short course of colchicine. 09/05/23 Accompanied by daughter Still has edema No dyspnea K was 2.6 on 08/20/23 !! 10/17/23: Doing better lost few pounds K was 3.3 01/11/24 Doing well No dyspnea Cr stable 05/13/24 c/o Chest pain x 2 days Dyspnea on exertion- with walking No cough No sweating PFSH Medical History Acute on chronic renal failure CHF exacerbation Afib Restrictive lung disease CKD (chronic kidney disease) stage 4, GFR 15-29 ml/min Right hemiparesis Cerebrovascular accident (CVA) due to occlusion of left middle cerebral artery Skin lesion Lumbar degenerative disc disease CKD (chronic kidney disease) BRYNN (obstructive sleep apnea) Arthritis Hypercholesteremia CAD (coronary artery disease) Sinusitis Stroke Asthma Hypertension Diabetes Surgical History History of esophagogastroduodenoscopy (EGD) H/O colonoscopy History of bilateral tubal ligation History of heart surgery History of coronary angioplasty with insertion of stent History of cataract surgery H/O right breast biopsy Family History Father Stroke Mother Myocardial infarction Paternal Uncle Cancer Family/Other Breast cancer Social History Household Members: Family Housing: House Are you a primary behavioral health care manager to a significant other at home: No Alcohol intake: never Comment: family at bedside Patient Tobacco Use Status: Never used Tobacco e-Cigarette/Vaping Use: Never Used Second Hand Smoke Exposure: No Advance Directives Date on File: 01/25/22 service: No Current occupational status: unemployed and disabled Sexual orientation: Straight/Heterosexual Gender identity: Female Cognitive needs: Yes Hearing needs: No Vision needs: No Female Reproductive History Menstrual Age of Menarche: 14 Physical Exam Vital Signs: Last Vital Signs Pulse 66 05/13/24 10:00 BP 130/52 L 05/13/24 10:00 Pulse Ox 89 L 05/13/24 10:00 Oxygen Delivery Method Room Air 05/13/24 10:00 BMI result Body Mass Index 40.6 Comfortable Neck supple no JVD. Lungs entry equal no rales. Heart S1-S2 heard no gallop or rub. Abdomen soft nontender. Neuro alert awake oriented. No asterixis. Extremities no edema. Results Reviewed Nephrology Results: Hgb 12.7 g/dl (12.0-16.0) 05/10/24 WBC 7.7 X10*3/uL (4.8-10.8) 05/10/24 Plt Count 203 X10*3/uL (160-400) 05/10/24 Sodium 142 mmol/L (135-145) 05/10/24 Potassium 3.0 mmol/L (3.3-5.1) L 05/10/24 Chloride 98 mmol/L (96-108) 05/10/24 Carbon Dioxide 37 mmol/L (22-29) H 05/10/24 BUN 17 mg/dL (9-16) H 05/10/24 Creatinine 1.78 mg/dL (0.5-1.4) H 05/10/24 Calcium 9.6 mg/dL (8.4-10.2) 05/10/24 PTH Intact 204.0 pg/mL (8.7-77.1) H 05/10/24 Assessment & Plan Assessment & Plan (1) CKD (chronic kidney disease) stage 4, GFR 15-29 ml/min: Code(s): N18.4 - Chronic kidney disease, stage 4 (severe) Category: Medical (2) Anemia: Code(s): D64.9 - Anemia, unspecified Category: Medical (3) Type 2 diabetes mellitus, with long-term current use of insulin: Code(s): E11.9 - Type 2 diabetes mellitus without complications; Z79.4 - skilled nursing (current) use of insulin Category: Medical Qualifiers: Diabetes mellitus complication status: with hyperglycemia Qualified Code(s): E11.65 - Type 2 diabetes mellitus with hyperglycemia; Z79.4 - termite technician (current) use of insulin Plan: . Goal A1c less than 7% She follows with Endocrinology Dr. Shirley (4) CKD (chronic kidney disease) stage 3, GFR 30-59 ml/min: Code(s): N18.30 - Chronic kidney disease, stage 3 unspecified Category: Medical Qualifiers: Chronic kidney disease stage 3 subtype: stage 3b (GFR 30-44) Qualified Code(s): N18.32 - Chronic kidney disease, stage 3b Plan: Chronic kidney disease in the setting of longstanding hypertension obesity and diabetes mellitus. Renal function : creatinine increased from 1.8 mg/dL. to 2.2 Goal is to slow the progression of disease. Continue to avoid nephrotoxic agents. We discussed importance of tight control of blood pressure and blood sugar. She will benefit from weight loss as well. Continue Farxiga for renal protection (5) Essential hypertension: Code(s): I10 - Essential (primary) hypertension Category: Medical Plan . Anemia due to CKD causing erythropoietin deficiency. No absolute indication for Epogen yet. I will monitor hemoglobin and initiate therapy as indicated. Hypokalemia KCL has been ordered YEt to order picker/assembler REcheck labs in 1 week IF chest pain doesnt improve, advicsed to go to ER Orders: Orders Basic Metabolic Panel 10 Weeks I10 - Essential (primary) hypertension, N18.32 - Chronic kidney disease, stage 3b Coding Level of Care Code Est Pt Level 4 (69370) Diagnoses CKD (chronic kidney disease) stage 4, GFR 15-29 ml/min N18.4 Anemia D64.9 Type 2 diabetes mellitus with hyperglycemia, with long-term current use of insulin E11.65; Z79.4 Diabetes mellitus complication status: with hyperglycemia Stage 3b chronic kidney disease N18.32 Chronic kidney disease stage 3 subtype: stage 3b (GFR 30-44) Essential hypertension I10
== END 2024-05-13 10:15 | disposition home or self-care (01) ==
PROVIDERS: PCP Internal Medicine; Visit Provider Internal Medicine Hypertension Specialist
DX: I12.9 Hypertensive chronic kidney disease with stage 1 through stage 4 chronic kidney disease, or unspecified chronic kidney disease (principal); E11.22 Type 2 diabetes mellitus with diabetic chronic kidney disease; N18.4 Chronic kidney disease, stage 4 (severe); D63.1 Anemia in chronic kidney disease; Z79.4 Long term (current) use of insulin
CPT/HCPCS: 99214

== ENCOUNTER → 2024-05-13 09:45 | Outpatient (BNVA) | payer OTHER, SELFPAY | PROVIDERS: PCP Internal Medicine; Visit Provider Internal Medicine Hypertension Specialist | DX: E11.22 Type 2 diabetes mellitus with diabetic chronic kidney disease (principal); I12.9 Hypertensive chronic kidney disease with stage 1 through stage 4 chronic kidney disease, or unspecified chronic kidney disease; N18.4 Chronic kidney disease, stage 4 (severe); E11.65 Type 2 diabetes mellitus with hyperglycemia; D64.9 Anemia, unspecified; Z79.4 Long term (current) use of insulin | CPT/HCPCS: 99212 ==

== ENCOUNTER 2024-05-13 10:32 | Emergency (ER) | payer OTHER, SELFPAY ==
--- NOTE | ~2024-05-13 | XR_ITS ---
EXAMINATION: XR CHEST CLINICAL INFORMATION: pain COMPARISON: X-ray dated June 29, 2022. TECHNIQUE: Frontal view of the chest was obtained. FINDINGS: Pulmonary reticular pattern. Prominence of the interstitial markings. No gross consolidation, pleural effusion or pneumothorax. Cardia mediastinal silhouette demonstrates sternal wires and mediastinal vascular clips and likely stenting. Heart silhouette appears unchanged. Multilevel thoracic spondylosis. XR/XR chest 1V IMPRESSION: Consider mild interstitial lung edema in the correct clinical settings. Electronically signed by: Nikolai Marinelli MD 05/13/2024 11:40 AM EST
--- NOTE | ~2024-05-13 | CT_ITS ---
EXAMINATION: CT HEAD WITHOUT CONTRAST CLINICAL INFORMATION: fall on eliquis COMPARISON: CT dated February 03, 2022. TECHNIQUE: Contiguous axial imaging was performed from the skull base to vertex without intravenous administration of contrast. This CT examination was performed using dose optimization techniques as appropriate, variously including the following: *Automated exposure control *Adjustment of mA and/or kV according to patient size (this includes techniques or standardized protocols for targeted exams where dose is matched to indication/reason for exam; i.e. extremities or head) *Use of iterative reconstruction technique DLP: 747 mGy-cm FINDINGS: Bony calvarium is intact. Skull base is intact. There is no intraocular hyperdensity, new since prior exam. No acute intracranial hemorrhage, mass effect, midline shift, hydrocephalus or herniation. Prominence of the extra-axial spaces pelvis, cerebral sulci and ventricles likely central volume loss. Bilateral multifocal patchy and confluent deep periventricular white matter hypodensities involving the infratentorial and supratentorial compartment. There is volume loss/wallerian degeneration into the middle cerebral peduncle and right cerebellar Multifocal old lacunar infarcts, basal ganglia and extracapsular. Sellar/suprasellar region demonstrated no gross masses or hemorrhage. Exam ankle dilatation left frontal horn lateral ventricle likely secondary to prior vascular insult. Calcified plaques in the cavernous supracavernous segments both ICA. Craniocervical junction is intact. No air-fluid levels in the included paranasal sinuses. Tympanic cavities and mastoid cells are aerated. CT/CT head/brain wo IV con IMPRESSION: No acute intracranial hemorrhage. Small vessel occlusive disease. Prior vascular insult right superior cerebellar artery territory. Probable intraocular treatment for possible retina detachment right eye . Electronically signed by: Nikolai Marinelli MD 05/13/2024 12:36 PM [facility] [place]
--- NOTE | 2024-05-13 10:36 | ECG_ITS ---
Test Reason : CHEST PAIN Blood Pressure : */* mmHG Vent. Rate : 64 BPM Atrial Rate : 64 BPM P-R Int : 202 ms QRS Dur : 152 ms QT Int : 476 ms P-R-T Axes : 52 -20 132 degrees QTcB Int : 491 ms Normal sinus rhythm Left bundle branch block Abnormal ECG When compared with ECG of 29-Jun-2022 12:32, Sinus rhythm has replaced Atrial fibrillation QRS axis Shifted left Referred By: Generic ED Physician Electronically Signed By: Jaiden Gurrola
--- NOTE | 2024-05-13 11:09 | ED_ITS ---
HPI - Chest Pain General Chief Complaint: Chest Pain Stated Complaint: chest pain r arm pain Time Seen by Provider: 05/13/24 18:23 History of Present Illness ED Provider: HPI narrative: Patient is 63 years old with history of insulin dependent diabetes mellitus on insulin pump, CAD status post CABG and stenting, CKD, history of CVA, gout, hypertension, BRYNN on CPAP, HFpEF closely monitored on cardioMEMS had nuclear stress on 01/22 which showed mid to distal LAD ischemia of mild intensity on medical management per professor of mathematics comes here for having chest pain on the right side for last 2 days and since a.m. noticed pain in the left side constant pressure pain with left arm pain no diaphoresis but felt increased shortness of breath today patient is saturating 96% on room air patient's initial troponin was 32.7without any ischemic changes in the EKG Related Data Home Medications ?Medication ?Instructions ?Recorded ?Confirmed blood sugar diagnostic #10 ea 02/24/20 05/13/24 insulin regular hum U-500 conc 500 0 - 450 unit subcut DAILY PRN for 02/24/20 05/13/24 unit/mL subcutaneous soln insulin pump hydralazine 25 mg tablet 25 mg PO BID 08/23/22 05/13/24 Previous Rx's ?Medication ?Instructions ?Recorded rosuvastatin 40 mg tablet 40 mg PO DAILY 90 days #90 tabs 05/03/22 commode #1 ea 07/07/22 pulse oximeter #1 ea 07/07/22 lactulose 10 gram/15 mL oral 10 g (15 mL) PO BEDTIME PRN 11/13/22 solution constipation 30 days #450 mL albuterol sulfate 90 mcg/actuation 2 puff inhalation Q6H PRN 01/04/23 aerosol inhaler shortness of breath or wheezing 30 days #8.5 grams cholecalciferol (vitamin D3) 50 50 mcg PO DAILY 90 days #90 caps 08/21/23 mcg (2,000 unit) capsule apixaban 5 mg tablet (Eliquis) 5 mg PO BID 90 days #180 tabs 09/29/23 dapagliflozin propanediol 10 mg 10 mg PO DAILY #30 tabs 10/09/23 tablet (Farxiga) clotrimazole 1 % topical cream 1 appl topical BID 4 weeks #15 10/16/23 grams Shower Chair #1 ea 12/04/23 alprazolam 0.5 mg tablet (Xanax) 0.5 mg PO BEDTIME PRN anxiety 5 12/04/23 days #5 tabs walker #1 ea 12/04/23 metoprolol tartrate 25 mg tablet 50 mg (2 x 25 mg) PO BID 90 days 01/10/24 #360 tabs furosemide 40 mg tablet 40 mg PO BID #180 tabs 01/11/24 ascorbic acid (vitamin C) 500 mg 500 mg PO DAILY 90 days #90 tabs 01/14/24 tablet (Vitamin C With Allie Hips) clopidogrel 75 mg tablet (Plavix) 75 mg PO DAILY #90 tabs 04/06/24 amitriptyline 25 mg tablet 25 mg PO BEDTIME 90 days #90 tabs 04/18/24 gabapentin 300 mg capsule 300 mg PO BID 30 days #60 caps 04/28/24 amlodipine 5 mg tablet 5 mg PO DAILY 90 days #90 tabs 04/29/24 sennosides 8.6 mg tablet (Senna 17.2 mg (2 x 8.6 mg) PO BEDTIME 04/29/24 Laxative) PRN constipation 30 days #60 tabs potassium chloride 20 mEq 20 meq PO DAILY #10 tabs 05/10/24 tablet,extended release Allergies Allergy/AdvReac Type Severity Reaction Status Date / Time lactose Allergy Intermediate Vomiting Verified 05/13/24 11:15 amlodipine Allergy Mild leg edema Verified 05/13/24 11:15 liraglutide [From VICTOZA] Allergy Mild VOMITING RUBI Verified 05/13/24 11:15 Review of Systems 2 Review of Systems: Yes all other systems are reviewed and are negative [facility] Past Medical History Medical History Acute on chronic renal failure CHF exacerbation Afib Restrictive lung disease CKD (chronic kidney disease) stage 4, GFR 15-29 ml/min Right hemiparesis Cerebrovascular accident (CVA) due to occlusion of left middle cerebral artery Skin lesion Lumbar degenerative disc disease CKD (chronic kidney disease) BRYNN (obstructive sleep apnea) Arthritis Hypercholesteremia CAD (coronary artery disease) Sinusitis Stroke Asthma Hypertension Diabetes Surgical History History of esophagogastroduodenoscopy (EGD) H/O colonoscopy History of bilateral tubal ligation History of heart surgery History of coronary angioplasty with insertion of stent History of cataract surgery H/O right breast biopsy Family History Family History Father Stroke Mother Myocardial infarction Paternal Uncle Cancer Family/Other Breast cancer Social History Social History Household Members: Family Housing: House Are you a primary intensive care anaesthetist to a significant other at home: No Alcohol intake: never Comment: family at bedside Patient Tobacco Use Status: Never used Tobacco Smoked in Last 30 Days: No e-Cigarette/Vaping Use: Never Used Second Hand Smoke Exposure: No Use of substances other than those prescribed or required for medical reasons: No Advance Directives: Yes Advance Directives on File: Yes Advance Directives Date on File: 01/25/22 Do you have a plan to hurt others: No Plan Patient : No service: No Current occupational status: unemployed and disabled Sexual orientation: Straight/Heterosexual Gender identity: Female Cognitive needs: Yes Hearing needs: No Vision needs: No Physical Exam 2 Vital Signs: Vital Signs: Last Vital Signs Temp 97.4 F 05/13/24 20:25 Pulse 57 05/13/24 20:25 Resp 16 05/13/24 20:25 BP 144/55 H 05/13/24 20:25 Pulse Ox 97 05/13/24 20:25 O2 Del Method Room Air 05/13/24 20:25 BMI result Body Mass Index 42.1 Appearance: Alert. Oriented X3. No acute distress. Eyes: PERRLA, No Nystagmus ENT: Pharynx normal. Oral Mucosa moist Neck: Normal inspection. Neck supple. CVS: Normal heart rate and rhythm. Pulses normal. Respiratory: No respiratory distress. Equal air entry bilateral, no wheezing/rales/rhonchi Abdomen: Soft and nontender. Bowel sounds are present, no mass palpable, no CVA tenderness Skin: Skin warm and dry. Normal skin color. Normal skin turgor. Extremities:2+ lower extremity edema. No calf tenderness Neuro: Oriented X 3. No motor deficit. No sensory deficit.No cerebellar signs , cranial nerves II-XII intact Course Course Course Narrative: 63 yo female with PMH of HTN, gout, PAF on eliquis, CKD, CHF, DM2, LBBB, BRYNN on CPAP, CVA with balance issues since, DM2 - here with c/o dizziness two days ago after standing denies falling or head strike she caught herself. She now c/o R sided chest pain two days ago L side today with radiation down L arm. No n/v no cough, mild dyspnea. She states she just doesn't feel well. Labs, CXR, EKG, CT head given the possible jarring injury. this is a RAPID medical screening exam the rest of the history and physical exam is to be done by the main provider. Medical Decision Making Medical Decision Making [facility] Narrative: Patient has significant coronary artery disease on medical management comes here for chest pain for 24 hours reason without any ischemic changes in the EKG without any delta change in the troponin likely has angina pain which is for medical treatment per Cardiology at this time no chest pain patient feels much better will discharge patient home advised to follow with professor of mathematics twice to continue Eliquis and Plavix Differential Diagnosis Differential Diagnoses: The differential diagnosis associated with the presentation includes Admission/Observation Consideration of admission/observation: Escalation of care including admission/observation considered Lab Data [facility] Lab Attestation statement: I reviewed the patient's lab results. 05/13/24 11:44 05/13/24 11:44 Labs: Lab Results 05/13/24 05/13/24 05/13/24 Range/Units 11:44 11:54 18:38 WBC 6.9 (4.8-10.8) X10*3/uL RBC 4.61 (4.20-5.50) X10*6/uL Hgb 13.0 (12.0-16.0) g/dl Hct 41.2 (37.0-47.0) % MCV 89.4 (80.0-98.0) fL MCH 28.2 (27.0-33.0) pg MCHC 31.6 (31.0-35.0) g/dl RDW 15.4 (11.0-16.0) % Plt Count 207 (160-400) X10*3/uL MPV 10.8 (9.4-12.3) fL Immature Gran % (Auto) 0.4 (0.0-0.4) % Neut % (Auto) 52.7 (45-73) % Lymph % (Auto) 32.0 (20-40) % [place] % (Auto) 11.1 H (2-11) % Eos % (Auto) 3.2 (0-4) % Baso % (Auto) 0.6 (0-2) % Lymph # (Auto) 2.2 (1.2-4.9) X10*3/uL [place] # (Auto) 0.8 (0.1-1.2) X10*3/uL Eos # (Auto) 0.2 (0.0-0.4) X10*3/uL Baso # (Auto) 0.0 (0.0-0.2) X10*3/uL Abs Immat Gran (auto) 0.03 (0.00-0.03) X10*3/uL Absolute Neuts (auto) 3.6 (2.0-8.3) x10*3/uL Absolute Nucleated RBC 0.000 (0.0-0.012) X10*3/uL Nucleated RBC % (auto) 0.0 (0.0-0.2) /100WBC Sodium 143 (135-145) mmol/L Potassium 3.2 L (3.3-5.1) mmol/L Chloride 98 (96-108) mmol/L Carbon Dioxide 39 H (22-29) mmol/L Anion Gap 9 L (12-20) BUN 20 H (9-16) mg/dL Creatinine 1.75 H (0.5-1.4) mg/dL Estim Creat Clear Calc 37.7 Estimated GFR 29 Random Glucose 171 H (60-115) mg/dL Calcium 9.6 (8.4-10.2) mg/dL Magnesium 2.3 (1.6-2.6) mg/dL Total Bilirubin 0.3 (0.0-1.0) mg/dL Direct Bilirubin 0.1 (0.0-0.5) mg/dL AST 29 (5-31) U/L ALT 22 (0-31) U/L Alkaline Phosphatase 68 (39-117) U/L Troponin I High Sens 32.7 H 36.8 H (<3.5-17.0) ng/L B-Natriuretic Peptide 212 H (<100) pg/mL Total Protein 7.9 (6.5-8.0) g/dL Albumin 3.6 (3.5-5.0) g/dL Lipase 17 (8-78) U/L Urine Color Yellow Urine Appearance Clear Urine pH 7.0 (5.0-9.0) Ur Specific [place] 1.010 (1.005-1.025) Urine Protein 100 (2+) H (Neg-Trace) mg/dL Urine Glucose (UA) >=1000 H (Negative) mg/dL Urine Ketones Negative (Negative) mg/dL Urine Blood Trace H (Negative) Urine Nitrite Negative (Negative) Ur Leukocyte Esterase Negative (Negative) Urine RBC 3-5 H (0-2) /HPF Urine WBC 0-5 (0-5) /HPF Ur Squamous Epith Cells 0-2 (0-2) /HPF Urine Bacteria None Seen (None Seen) Hyaline Casts 0-2 (0-2) /LPF Influenza Type A (PCR) NEGATIVE (Negative) Influenza Type B (PCR) NEGATIVE (Negative) RSV RNA Qual (PCR) NEGATIVE (Negative) SARS-CoV-2 RNA (RT-PCR) NEGATIVE (Negative) Independent Interpretation I performed an independent interpretation of an: EKG Interpretation: Rate: 64 Rhythm: NSR [place]: left, LVH Normal P waves. Normal DONALD. LBBB ST T wave : no NOAH, inverted t waves I and aVL qTC: 491 prior studies: The study has been interpreted contemporaneously by me. . Discharge Plan Discharge Clinical Impression: Acute coronary syndromes Patient Disposition: Home, Self-Care Instructions: Acute Coronary Syndrome (ED) Additional Instructions: Continue your medications Follow up with your professor of mathematics Take nitroglycerin sublinguals for recurrence of chest pain if any Report to the ER if worsening of the chest pain Prescriptions: No Action rosuvastatin 40 mg tablet 40 mg PO DAILY 90 Days Qty: 90 3RF lactulose 10 gram/15 mL solution 10 g PO BEDTIME PRN (Reason: constipation) 30 Days Qty: 450 2RF cholecalciferol (vitamin D3) 50 mcg (2,000 unit) capsule 50 mcg PO DAILY 90 Days Qty: 90 2RF Eliquis 5 mg tablet 5 mg PO BID 90 Days Qty: 180 1RF dapagliflozin propanediol [Farxiga] 10 mg tablet 10 mg PO DAILY Qty: 30 11RF clotrimazole 1 % cream 1 appl topical BID 28 Days Qty: 15 1RF metoprolol tartrate 25 mg tablet 50 mg PO BID 90 Days Qty: 360 3RF furosemide 40 mg tablet 40 mg PO BID Qty: 180 1RF ascorbic acid (vitamin C) [Vitamin C With Allie Hips] 500 mg tablet 500 mg PO DAILY 90 Days Qty: 90 1RF clopidogrel [Plavix] 75 mg tablet 75 mg PO DAILY Qty: 90 1RF amitriptyline 25 mg tablet 25 mg PO BEDTIME 90 Days Qty: 90 1RF gabapentin 300 mg capsule 300 mg PO BID 30 Days Qty: 60 0RF potassium chloride 20 mEq tablet extended release 20 meq PO DAILY Qty: 10 0RF ([facility] [place]) commode Kit See Rx Instructions .Route Qty: 1 0RF Rx Instructions: As directed ([facility] [place]) pulse oximeter See Rx Instructions .Route .MEDSUPPLY Qty: 1 0RF Rx Instructions: As directed alprazolam [Xanax] 0.5 mg tablet 0.5 mg PO BEDTIME PRN (Reason: anxiety) 5 Days Qty: 5 0RF ([facility] [place]) Shower Chair Misc See Rx Instructions .ROUTE .MEDSUPPLY Qty: 1 0RF Rx Instructions: As directed ([facility]) walker Misc See Rx Instructions .ROUTE .MEDSUPPLY Qty: 1 0RF Rx Instructions: with seat and wheels insulin regular hum U-500 conc 500 unit/mL solution 0 - 450 unit subcut DAILY PRN (Reason: for insulin pump) (DME) blood sugar diagnostic Strip See Rx Instructions Not Applicable .MEDSUPPLY Qty: 10 Rx Instructions: As directed hydralazine 25 mg tablet 25 mg PO BID albuterol sulfate 90 mcg/actuation HFA aerosol inhaler 2 puff inhalation Q6H PRN (Reason: shortness of breath or wheezing) 30 Days Qty: 8.5 3RF sennosides [Senna Laxative] 8.6 mg tablet 17.2 mg PO BEDTIME PRN (Reason: constipation) 30 Days Qty: 60 1RF amlodipine 5 mg tablet 5 mg PO DAILY 90 Days Qty: 90 1RF Interventions: ED Discharge Assessment Last Done: 05/13/24 20:25 Discharge Date/Time: 05/13/24 20:25 Print Language: Maltese
[2024-05-13 11:10] VITALS: BP 137/50; PULSE 61; RESP 20; TEMP 36.1; O2SAT 96; BMI 42.1
[2024-05-13 12:02] LABS: MANUAL DIFF FLAG NO
[2024-05-13 12:05] LABS: Basophils Percent Auto 0.6 % (0-2); Eosinophils Absolute Auto 0.2 X10*3/uL (0.0-0.4); Eosinophils Percent Auto 3.2 % (0-4); Hematocrit 41.2 % (37.0-47.0); Imm Gran Abs Auto 0.03 X10*3/uL (0.00-0.03); Imm Gran Pct Auto 0.4 % (0.0-0.4); Lymphocytes Absolute Auto 2.2 X10*3/uL (1.2-4.9); Mean Corpuscular HGB Conc 31.6 g/dl (31.0-35.0); Mean Corpuscular Hemoglobin 28.2 pg (27.0-33.0); Mean Corpuscular Volume 89.4 fL (80.0-98.0); Mean Platelet Volume 10.8 fL (9.4-12.3); Monocytes Absolute Auto 0.8 X10*3/uL (0.1-1.2); Monocytes Percent Auto 11.1 % (2-11); Neutrophils Absolute Auto 3.6 x10*3/uL (2.0-8.3); Neutrophils Percent Auto 52.7 % (45-73); Platelet Count 207 X10*3/uL (160-400); Red Blood Count 4.61 X10*6/uL (4.20-5.50); Red Cell Distribution Width 15.4 % (11.0-16.0); White Blood Count 6.9 X10*3/uL (4.8-10.8)
[2024-05-13 12:25] LABS: Appearance Urine Clear; Color Urine Yellow; Glucose Urine UA >=1000 mg/dL (Negative); Leukocyte Esterase Urine Negative (Negative); Nitrite Urine Negative (Negative); UMIC TRIGGER UACC YES; Urine Blood Trace (Negative); Urine Ketones Negative (Negative); Urine Protein 100 (2+) mg/dL (Neg-Trace)
[2024-05-13 12:25] LABS: Alanine Aminotransferase 22 U/L (0-31); Albumin Level 3.6 g/dL (3.5-5.0); Alkaline Phosphatase 68 U/L (39-117); Anion Gap 9 (12-20); Aspartate Amino Transferase 29 U/L (5-31); Bilirubin Direct 0.1 mg/dL (0.0-0.5); Bilirubin Total 0.3 mg/dL (0.0-1.0); Blood Urea Nitrogen 20 mg/dL (9-16); Calcium 9.6 mg/dL (8.4-10.2); Carbon Dioxide 39 mmol/L (22-29); Chloride 98 mmol/L (96-108); Creatinine Clr Calc Pharmacy 37.7; Estimated Glomerular Filt Rate 29; Glucose Random 171 mg/dL (60-115); Lipase 17 U/L (8-78); Magnesium 2.3 mg/dL (1.6-2.6); Potassium 3.2 mmol/L (3.3-5.1); Sodium 143 mmol/L (135-145); Total Protein 7.9 g/dL (6.5-8.0)
[2024-05-13 12:26] LABS: B Type Natriuretic Peptide 212 pg/mL (<100)
[2024-05-13 12:27] LABS: Troponin-I High Sensitivity 32.7 ng/L (<3.5-17.0)
[2024-05-13 12:31] LABS: Bacteria Urine None Seen (None Seen); Hyaline Casts Urine 0-2 /LPF (0-2); Squamous Epithelial Cell Urine 0-2 /HPF (0-2); WBC Urine 0-5 /HPF (0-5)
[2024-05-13 12:41] LABS: Influenza A PCR NEGATIVE (Negative); Influenza B PCR NEGATIVE (Negative); Resp Syncy Virus RNA Qual PCR NEGATIVE (Negative); SARS COV2 PCR INHOUSE NEGATIVE (Negative)
[2024-05-13 18:45] VITALS: BP 180/63; PULSE 55; RESP 18; TEMP 36.2; O2SAT 97
[2024-05-13 19:03] LABS: Troponin-I High Sensitivity 36.8 ng/L (<3.5-17.0)
[2024-05-13 20:09] VITALS: BP 144/55; PULSE 57; RESP 16; TEMP 36.3; O2SAT 97
[2024-05-13 20:25] VITALS: BP 144/55; PULSE 57; RESP 16; TEMP 36.3; O2SAT 97
== END 2024-05-13 20:25 | disposition home or self-care (01) ==
PROVIDERS: Emergency Medicine; Emergency Provider Internal Medicine; PCP Internal Medicine
DX: I24.9 Acute ischemic heart disease, unspecified (principal); R06.02 Shortness of breath; R60.0 Localized edema; E11.22 Type 2 diabetes mellitus with diabetic chronic kidney disease; I13.0 Hypertensive heart and chronic kidney disease with heart failure and stage 1 through stage 4 chronic kidney disease, or unspecified chronic kidney disease; N18.4 Chronic kidney disease, stage 4 (severe); I50.9 Heart failure, unspecified; E78.00 Pure hypercholesterolemia, unspecified; I48.0 Paroxysmal atrial fibrillation; Z86.73 Personal history of transient ischemic attack (TIA), and cerebral infarction without residual deficits; Z96.41 Presence of insulin pump (external) (internal); Z79.4 Long term (current) use of insulin; Z79.01 Long term (current) use of anticoagulants; Z79.02 Long term (current) use of antithrombotics/antiplatelets; Z79.899 Other long term (current) drug therapy; Z03.818 Encounter for observation for suspected exposure to other biological agents ruled out
CPT/HCPCS: 0241U; 36415; 70450; 71045; 80048; 80076; 81001; 83690; 83735; 83880; 84484; 85025; 93005; 99284

== ENCOUNTER → 2024-05-13 10:36 | Outpatient (BNV) | payer OTHER, SELFPAY | PROVIDERS: Emergency Provider Internal Medicine; PCP Internal Medicine; Visit Provider Internal Medicine Cardiovascular Disease | DX: R94.31 Abnormal electrocardiogram [ECG] [EKG] (principal) | CPT/HCPCS: 93010 ==

== ENCOUNTER → 2024-05-13 11:13 | Outpatient (BNV) | payer OTHER, SELFPAY | PROVIDERS: PCP Internal Medicine; Visit Provider Radiology Diagnostic Radiology | DX: I67.89 Other cerebrovascular disease (principal); J81.0 Acute pulmonary edema | CPT/HCPCS: 70450; 71045 ==

== ENCOUNTER 2024-05-30 10:40 | Outpatient (AMB) | payer OTHER, SELFPAY ==
--- NOTE | 2024-05-30 10:46 | MHC.OFFVIS ---
Vital Signs 05/30/24 10:47 Height 5 ft 2 in Intake Visit Reasons: Follow Up Arterial Intake Note: 6 mo follow up ARterial US 05/07/24 s/p angio 10/2023, pt states no complaints Accompanied by: Self / Same As Patient Allergies lactose Allergy (Intermediate, Verified 05/30/24 10:48) Vomiting amlodipine Allergy (Mild, Verified 05/30/24 10:48) leg edema liraglutide [From VICTOZA] Allergy (Mild, Verified 05/30/24 10:48) VOMITING RUBI HPI HPI Follow Up Arterial: Details: Very pleasant 63-year-old female presents for follow-up regarding routine arterial surveillance. She actually had undergone an angiogram with us on 11/01/2023. At that time she stenotic disease throughout but no flow-limiting stenosis. She now presents for routine surveillance follow-up. Upon discussion with her she is able to ambulate with the use of her walker but shortness of breath seems to be a bigger issue for her. In addition she does have some lower extremity edema. At the current time she has no active wounds or ulcerations [facility] Medical History Acute on chronic renal failure CHF exacerbation Afib Restrictive lung disease CKD (chronic kidney disease) stage 4, GFR 15-29 ml/min Right hemiparesis Cerebrovascular accident (CVA) due to occlusion of left middle cerebral artery Skin lesion Lumbar degenerative disc disease CKD (chronic kidney disease) BRYNN (obstructive sleep apnea) Arthritis Hypercholesteremia CAD (coronary artery disease) Sinusitis Stroke Asthma Hypertension Diabetes Surgical History History of esophagogastroduodenoscopy (EGD) H/O colonoscopy History of bilateral tubal ligation History of heart surgery History of coronary angioplasty with insertion of stent History of cataract surgery H/O right breast biopsy Family History Father Stroke Mother Myocardial infarction Paternal Uncle Cancer Family/Other Breast cancer Social History Household Members: Family Housing: House Are you a primary acute care clinical nurse specialist to a significant other at home: No Alcohol intake: never Comment: family at bedside Patient Tobacco Use Status: Never used Tobacco e-Cigarette/Vaping Use: Never Used Second Hand Smoke Exposure: No Advance Directives Date on File: 01/25/22 service: No Current occupational status: unemployed and disabled Sexual orientation: Straight/Heterosexual Gender identity: Female Cognitive needs: Yes Hearing needs: No Vision needs: No Female Reproductive History Menstrual Age of Menarche: 14 Review of Systems Const All systems reviewed & are unremarkable except as noted in HPI and below Reports no additional complaints ENT Reports Normal hearing present Card Denies chest pain, Denies chest pain at rest, Denies chest pain with activity and Denies pedal edema Resp Denies cough GI Denies abdominal pain Musc Denies abnormal gait, Denies muscle cramps and Denies radiating pain into limb Skin/Breast Denies skin ulcer and Denies wounds Neuro Reports Normal hearing present and Denies abnormal gait Psych Reports no additional complaints Physical Exam Const General: cooperative, healthy appearing and comfortable Orientation/consciousness: oriented to person, oriented to place and oriented to time HEENT Head: Yes normal to inspection Neck Neck: Yes normal visual inspection Carotids: no bruits Chest Chest palpation & inspection: normal inspection of the chest Resp Effort & Inspection: normal respiratory effort and able to speak in complete sentences Auscultation: clear to auscultation bilaterally, no crackles, no rales, no rhonchi and no wheezes Cardio Other: Bilateral DP signals Rate: regular rate Rhythm: regular rhythm Heart sounds: S1 normal heart sound present and S2 normal heart sound present Bruits: no carotid bruits GI Inspection: Yes normal to inspection Skin Wounds: no wounds Hair: normal Neuro General: oriented to person, oriented to place and oriented to time Cranial nerves: Yes CN's II-XII intact bilaterally and Yes Normal hearing present Cognition (Neuro): normal cognition Motor exam (neuro): 5/5 motor strength present throughout Extrem Other: venous exam: No significant superficial varicosities or spider telangiectasias, minimal edema General: No clubbing, No cyanosis and No edema Psych Appearance: grossly normal Mental Status: mental status grossly normal Speech and movement: Normal speech and movement present Quality Reporting (2019) Adult ([facility] 13806/22/68) Smoking risk assessment performed?: Yes Patient Tobacco Use Status: Never used Tobacco Results Reviewed Results Reviewed: Noninvasive arterial testing dated 05/07/2024 demonstrates BART on the right of 0.75 and on the left of 0.53. Written report and images were reviewed. Assessment & Plan Assessment & Plan (1) PVD (peripheral vascular disease): Comment: 02/17/2022 - right SFA atherectomy and plasty. 11/01/2023 - diagnostic angiogram Code(s): I73.9 - Peripheral vascular disease, unspecified Category: Medical Plan: In short patient has stable claudication. I did review the pathophysiology of peripheral vascular disease with the patient. In addition we did discuss routine conservative measures including a healthy diet and the importance of exercise and ambulation. We did discuss risk factor modification. The patient will continue to to follow-up with surveillance follow-up in approximately 1 year. Thank you for allowing us to participate in this patient's care. If there are any questions or concerns please do not hesitate to contact us. (2) Lower extremity edema: Code(s): R60.0 - Localized edema Category: Medical Plan: At the current time we discuss conservative measures including compression elevation and exercise. Due to her overall status would not actively intervene on her. She will follow up with us in approximately 1 year's time. Orders: Orders US arterial duplex LE BI 1 Year I73.9 - Peripheral vascular disease, unspecified Coding Level of Care Code Est Pt Level 4 (77192) Complex EM visit Add On G2211 Diagnoses PVD (peripheral vascular disease) I73.9 Lower extremity edema R60.0
--- OUTSIDE RECORDS SUMMARY | 2024-05-30 14:20 | XMS_ITS | Encounter Summary ---
Author Organization [facility] Address [address] [facility] [address] [place] [address] Phone Care Team Providers Care Rapier Insertion Loom Fixer Name Role Phone Shara Verdugo MD Primary Care Provider [phone] Encounter Details Date Type Department Care Team (Late st Contact Info) Description 10/03/2023 Office Communication [facility] [address] [facility] [address] [place] [address] Darrell Santa MD [address] [facility] [address] [place] [address] Social History Tobacco Use Types Packs/Day Years Used Date Smoking Tobacco: Never Smokeless Tobacco: Never Alcohol Use Standard Drinks/Week Comments No 0 (1 standard drink = 0.6 oz pur e alcohol) Comments Unknown Sex and Gender Information Value Date Recorded Sex Assigned at Not on file Legal Sex Female 5:11 PM EST Gender Identity Not on file Sexual Orientation Not on file documented as of this encounter Miscellaneous Notes * Telephone Encounter - Darrell Santa MD - 10/16/2023 2:40 PM EDT Needs appt with me in 2--3 wks * Telephone Encounter - Darrell Santa MD - 10/03/2023 5:04 PM EDT Needs appt with me in 2-3 wks, ok to overbook documented in this encounter Plan of Treatment Not on file documented as of this encounter Visit Diagnoses Not on filedocumented in this encounter Care Teams Rapier Insertion Loom Fixer Relationship Specialty Start Date End Date Shara Verdugo MD [address] [place], [place] PCP - General 05/11/20 documented as of this encounter
--- OUTSIDE RECORDS SUMMARY | 2024-05-30 14:20 | XMS_ITS | Clinical Summary ---
Author Organization [facility] Address [address] [place] [address] Care Team Providers Care Blow Molding Machine Operator Name Role Phone Unavailable Primary Care Provider Unavailabl e Social History Tobacco Use Types Packs/Day Years Used Date Smoking Tobacco: Never Assessed Comments Unknown Sex and Gender Information Value Date Recorded Sex Assigned at Female 02/28/2022 10:17 AM EDT Legal Sex Female 10:17 AM EDT Gender Identity Female 02/28/2022 10:17 AM EDT Sexual Orientation Choose not to disclose 2021 10:17 AM EDT Plan of Treatment Health Maintenance Due Date Last Done Comments CT Colonography 1961 Colonoscopy 1961 Colorectal Cancer Screening 1961 Depression Screening 1961 FIT DNA/Cologuard 1961 FIT 1961 FOBT 1961 Sigmoidoscopy 1961 Alcohol/Substance Use Screening 1973 Tobacco Screening 1973 DTaP/Tdap/Td Vaccines (1 - Tdap) 1980 Pap Smear 1982 Cervical Cancer Screening 08/06/1991 HPV/Cotest 08/06/1991 Mammogram 2001 Zoster Vaccines (1 of 2) 08/06/2011 COVID-19 Vaccine ( - 2023-2 5 season) 2023 Influenza Vaccine (#1) 2023 RSV Patients and Pa tients Aged 60 years or older (1 - 1-dose 75+ series) 2036 HIB Vaccines Aged Out No longer eligi ble based on patient's age to complete this topic HPV Vaccines Aged Out No longer eligi ble based on patient's age to complete this topic Hepatitis A Vaccines Aged Out No long er eligible based on patient's age to complete this topic Hepatitis B Vaccines Aged Out No long er eligible based on patient's age to complete this topic IPV Vaccines Aged Out No longer eligi ble based on patient's age to complete this topic Meningococcal Vaccine Aged Out No edy shad eligible based on patient's age to complete this topic Pneumococcal Vaccine: Pediat rics (0 to 5 Years) and At-Risk Patients (6 to 49) Years) Aged Out No longer eligible b ased on patient's age to complete this topic RSV under 20 months Aged Out No longe r eligible based on patient's age to complete this topic Rotavirus Vaccines Aged Out No longer eligible based on patient's age to complete this topic
--- OUTSIDE RECORDS SUMMARY | 2024-05-30 14:20 | XMS_ITS | Encounter Summary ---
Author Organization [facility] Address [address] [facility] [address] [place] [address] Phone Care Team Providers Care Corrosion Control Technician Name Role Phone Shara Verdugo MD Primary Care Provider [phone] Encounter Details Date Type Department Care Team (Late st Contact Info) Description 03/14/2022 Telephone [facility] [address] [facility] [address] [place] [address] Shara Verdugo MD [address] [place] [address] Social History Tobacco Use Types Packs/Day Years [...] encounter Miscellaneous Notes * Telephone Encounter - Claudia Marino - 03/14/2022 9:41 AM EST Pts vascular doctor called, she would like to note from 03/07/22 faxed over once complete. Please send to [facility] . Thank you documented in this encounter Plan of Treatment Not on file documented as of this encounter Visit Diagnoses Not on filedocumented in this encounter Care Teams Corrosion Control Technician Relationship Specialty Start Date End Date Shara Verdugo MD [address] [place] [address] PCP - General 05/11/20 documented as of this encounter
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
--- OUTSIDE RECORDS SUMMARY | 2024-05-30 14:20 | XMS_ITS | Encounter Summary ---
Author Organization [facility] Address [address] [facility] [address] [place] [address] Phone Care Team Providers Care Concrete Craftsman Name Role Phone Shara Verdugo MD Primary Care Provider [phone] Reason for Visit * Reason Comments Med Refill Encounter Details Date Type Department Care Team (Late st Contact Info) Description 10/16/2023 Refill [facility] [address] [place] [address] Darrell Santa MD [address] [facility] [address] [place] [address] Chronic kidney disease, stage 4 (severe) (HCC); 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); Essential hypertension Social History Tobacco Use Types Packs/Day Years [...] on file documented as of this encounter Plan of Treatment Not on file documented as of this encounter Visit Diagnoses Diagnosis Chronic kidney disease, stage 4 (severe) (HCC) 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) Essential hypertension documented in this encounter Care Teams Concrete Craftsman Relationship Specialty Start Date End Date Shara Verdugo MD [address] [place] [address] PCP - General 05/11/20 documented as of this encounter
--- OUTSIDE RECORDS SUMMARY | 2024-05-30 14:20 | XMS_ITS | Encounter Summary ---
Author Organization [facility] Address [address] [facility] [place] [address] Care Team Providers Care Distribution Operations Manager Name Role Phone Unavailable Primary Care Provider Unavailabl e Encounter Details Date Type Department Care Team (Latest Contact Info) Description 10/01/2018 Abstract [facility] CONVERSIONS Dental, Provider, DDS Social History Tobacco Use Types Packs/Day Years Used Date Smoking Tobacco: Never Assessed Comments Unknown Sex and Gender Information Value Date Recorded Sex Assigned at Female 02/28/2022 10:17 AM EDT Legal Sex Female 10:17 AM EDT Gender Identity Female 02/28/2022 10:17 AM EDT Sexual Orientation Choose not to disclose 2021 10:17 AM EDT documented as of this encounter Plan of Treatment Not on file documented as of this encounter Visit Diagnoses Not on filedocumented in this encounter
--- OUTSIDE RECORDS SUMMARY | 2024-05-30 14:20 | XMS_ITS | Encounter Summary ---
Author Organization [facility] Address [address] [facility] 200 [place] [address] Phone Care Team Providers Care Professional Tutor Name Role Phone Shara Verdugo MD Primary Care Provider Reason for Visit * Reason Comments Med Refill Encounter Details Date Type Department Care Team (Late st Contact Info) Description 05/26/2024 Refill [facility] [address] [place] [address] Darrell Santa MD [address] [facility] [address] [place] [address] Chronic kidney disease, stage 4 [...] hypertension documented in this encounter Care Teams Professional Tutor Relationship Specialty Start Date End Date Shara Verdugo MD [address] [place] [address] PCP - General 05/11/20 documented as of this encounter
--- OUTSIDE RECORDS SUMMARY | 2024-05-30 14:20 | XMS_ITS | Encounter Summary ---
Author Organization [facility] Address [address] [facility] 200 [place] [address] Phone Care Team Providers Care Rotary Derrick Operator Name Role Phone Shara Verdugo MD Primary Care Provider [phone] Reason for Visit * Reason Comments Med Refill Encounter Details Date Type Department Care Team (Late st Contact Info) Description 10/03/2023 Refill [facility] [address] [place] [address] Darrell Santa MD [address] [facility] 204 [place] [address] Social History Tobacco Use Types [...] on filedocumented in this encounter Care Teams Rotary Derrick Operator Relationship Specialty Start Date End Date Shara Verdugo MD [address] [place], [place] PCP - General 05/11/20 documented as of this encounter
== END 2024-05-30 11:15 | disposition home or self-care (01) ==
PROVIDERS: PCP Internal Medicine; Visit Provider Surgery Vascular Surgery
DX: I73.9 Peripheral vascular disease, unspecified (principal); R60.0 Localized edema
CPT/HCPCS: 99214; G2211

== ENCOUNTER → 2024-05-30 10:40 | Outpatient (BNVA) | payer OTHER, SELFPAY | PROVIDERS: PCP Internal Medicine; Visit Provider Surgery Vascular Surgery | DX: I73.9 Peripheral vascular disease, unspecified (principal); R60.0 Localized edema | CPT/HCPCS: 99212 ==

== ENCOUNTER → 2024-06-21 23:59 | Outpatient (BNV) | payer OTHER, SELFPAY ==
--- NOTE | 2024-07-12 18:02 | A.OFFVIS_ITS ---
Intake Visit Reasons: Remote Cardiomems- [facility] Allergies lactose Allergy (Intermediate, Verified 07/12/24 13:47) Vomiting amlodipine Allergy (Mild, Verified 07/12/24 13:47) leg edema liraglutide [From VICTOZA] Allergy (Mild, Verified 07/12/24 13:47) VOMITING RUBI [facility]SH Medical History Cataract (lens) fragments in eye following cataract surgery, right eye Cataract (lens) fragments in eye following cataract surgery, left eye Acute on chronic renal failure CHF exacerbation Afib Restrictive lung disease CKD (chronic kidney disease) stage 4, GFR 15-29 ml/min Right hemiparesis Cerebrovascular accident (CVA) due to occlusion of left middle cerebral artery Skin lesion Lumbar degenerative disc disease CKD (chronic kidney disease) BRYNN (obstructive sleep apnea) Arthritis Hypercholesteremia CAD (coronary artery disease) Sinusitis Stroke Asthma Hypertension Diabetes Surgical History History of esophagogastroduodenoscopy (EGD) H/O colonoscopy History of bilateral tubal ligation History of heart surgery History of coronary angioplasty with insertion of stent History of cataract surgery H/O right breast biopsy Family History Father Stroke Mother Myocardial infarction Paternal Uncle Cancer Family/Other Breast cancer Social History Household Members: Family Housing: House Are you a primary behavioral health care coordinator to a significant other at home: No Alcohol intake: never Comment: family at bedside Patient Tobacco Use Status: Never used Tobacco e-Cigarette/Vaping Use: Never Used Second Hand Smoke Exposure: No Advance Directives Date on File: 01/25/22 service: No Current occupational status: unemployed and disabled Sexual orientation: Straight/Heterosexual Gender identity: Female Cognitive needs: Yes Hearing needs: No Vision needs: No Female Reproductive History Menstrual Age of Menarche: 14 Office Procedures Cardiac Device Check Cardiac Device Check Details: Monitoring period dates: 05/09/24- 06/21/24 Optimal PA pressure range: LOREN goal 30mmhg Procedure code: 28943 BACKGROUND: Anna is implanted with the CardioMEMS PA Sensor.? I use this technology to monitor PA pressures on a weekly basis to ensure patients are within their optimal range to prevent decompensation.? SUMMARY:? I utilized the remote monitoring platform (Buck) to set optimal targets for pulmonary artery pressure thresholds as part of acute and chronic management of patient?s heart failure. During the period indicated above, I monitored the patient?s pulmonary artery pressures weekly via trend analysis and notification reports which provide alerts when patient?s PA pressures were outside of range to prompt immediate action in medication changes and communications.? The weekly reports are archived in the Buck system which serve as a parallel record to document weekly PA pressures, medication changes, and clinical notes. I have reviewed readings on 05/10, 05/17, 05/24, 05/31, 06/07, 06/14. 06/21. Readings have ranged between 22-38mmhg. Diuretics temporarily increased when needed for elevated readings. 38637 - Remote monitoring of wireless pulmonary artery pressure sensor Procedure code (CPT) selection complete Quality Reporting (2019) Adult ([facility] 138/06/22/68) Smoking risk assessment performed?: Yes Patient Tobacco Use Status: Never used Tobacco Assessment & Plan Assessment & Plan (1) Presence of CardioMEMS HF system: Code(s): Z95.818 - Presence of other cardiac implants and grafts Category: Medical Plan: monthly report Coding Level of Care Code Procedure Only Diagnoses Presence of CardioMEMS HF system Z95.818 CPT Codes Cardiac Device Check - Cardiac Device 17: 59782 - Remote monitoring of wireless pulmonary artery pressure sensor ([id number])
== END ==
PROVIDERS: PCP Internal Medicine; Visit Provider Nurse Practitioner Family
DX: Z95.818 Presence of other cardiac implants and grafts (principal)
CPT/HCPCS: 93264

== ENCOUNTER 2024-07-04 10:39 | Outpatient (AMB) | payer OTHER, SELFPAY ==
--- NOTE | 2024-07-04 11:14 | A.OFFVIS_ITS ---
Vital Signs 07/04/24 11:15 Height 5 ft 2 in Weight 218 lb 4.122 oz BMI 39.9 BP 120/62 Blood Pressure Location Lt brachial Position Sitting Pulse 63 Pulse Source Pulse Oximeter Pulse Oximetry (%) 97 Oxygen Delivery Method Room Air Intake Visit Reasons: Obstructive sleep apnea Intake Note: pt is here for follow up of BRYNN and states she recevied a new cpap and is using it, but having a billing issue, we will look into Public Policy Analyst Required: No Allergies lactose Allergy (Intermediate, Verified 07/04/24 11:42) Vomiting amlodipine Allergy (Mild, Verified 07/04/24 11:42) leg edema liraglutide [From VICTOZA] Allergy (Mild, Verified 07/04/24 11:42) VOMITING RUBI Medication List - Last Reconciled 07/04/24 by Real Slade MD albuterol sulfate 90 mcg/actuation 2 puffs inhalation Q6H PRN 30 days alprazolam (Xanax) 0.5 mg PO BEDTIME PRN 5 days amitriptyline 25 mg PO BEDTIME 90 days amlodipine 5 mg PO DAILY 90 days apixaban (Eliquis) 5 mg PO BID 90 days ascorbic acid (vitamin C) (Vitamin C With Allie Hips) 500 mg PO DAILY 90 days blood sugar diagnostic As directed cholecalciferol (vitamin D3) 50 mcg PO DAILY 90 days clopidogrel (Plavix) 75 mg PO DAILY clotrimazole 1% 1 appl topical BID 4 weeks commode As directed dapagliflozin propanediol (Farxiga) 10 mg PO DAILY furosemide 40 mg PO BID gabapentin 300 mg PO BID 30 days hydralazine 25 mg PO BID insulin regular hum U-500 conc 0 - 450 units subcut DAILY PRN lactulose 10 grams (15 mL) PO BEDTIME PRN 30 days metoprolol tartrate 50 mg (2 x 25 mg) PO BID 90 days nitroglycerin mg sublingual potassium chloride ER 20 mEq PO DAILY [pulse oximeter As directed] rosuvastatin 40 mg PO DAILY 90 days sennosides (Senna Laxative) 17.2 mg (2 x 8.6 mg) PO BEDTIME PRN 30 days Shower Chair As directed walker with seat and wheels Do you need a note to return to daycare/school/sports/work: No HPI HPI Obstructive sleep apnea: Details: THIS 63 YEARS OLD PLEASANT LADY WHO IS ALSO GROSSLY OBESE, HAS MULTIPLE COMORBIDITIES INCLUDING MILD INTERMITTENT BRONCHIAL ASTHMA. AND OBSTRUCTIVE SLEEP APNEA. SHE COMES FOR HER ROUTINE FOLLOW-UP AFTER 4 MONTHS. THERE HAS BEEN NO CHANGE IN HER WEIGHT , IT IS NOT EXPECTED. CLAIMS THAT SHE USES CPAP EVERY NIGHT, HOWEVER DURING THE NIGHT SHE AUTOMATICALLY PULLS IT OFF. SHE HAS A NEW CPAP MACHINE, BUT BECAUSE SHE IS NOT USING FOR ENOUGH HOURS SHE IS NOT GETTING THE WHOLE BENEFIT. SHE DOES HAVE MILD SLEEPINESS DURING THE DAYTIME. HER BREATHING STATUS HAS REMAINED STABLE. PENDING SALE TO [facility] Medical History Acute on chronic renal failure CHF exacerbation Afib Restrictive lung disease CKD (chronic kidney disease) stage 4, GFR 15-29 ml/min Right hemiparesis Cerebrovascular accident (CVA) due to occlusion of left middle cerebral artery Skin lesion Lumbar degenerative disc disease CKD (chronic kidney disease) BRYNN (obstructive sleep apnea) Arthritis Hypercholesteremia CAD (coronary artery disease) Sinusitis Stroke Asthma Hypertension Diabetes Surgical History History of esophagogastroduodenoscopy (EGD) H/O colonoscopy History of bilateral tubal ligation History of heart surgery History of coronary angioplasty with insertion of stent History of cataract surgery H/O right breast biopsy Family History Father Stroke Mother Myocardial infarction Paternal Uncle Cancer Family/Other Breast cancer Social History Household Members: Family Housing: House Are you a primary respiratory care program director to a significant other at home: No Alcohol intake: never Comment: family at bedside Patient Tobacco Use Status: Never used Tobacco e-Cigarette/Vaping Use: Never Used Second Hand Smoke Exposure: No Advance Directives Date on File: 01/25/22 service: No Current occupational status: unemployed and disabled Sexual orientation: Straight/Heterosexual Gender identity: Female Cognitive needs: Yes Hearing needs: No Vision needs: No Female Reproductive History Menstrual Age of Menarche: 14 Review of Systems Const All systems reviewed & are unremarkable except as noted in HPI and below Eyes Reports no additional complaints ENT Reports nasal congestion (MILD OFF AND ON) Card Denies chest pain, Reports irregular heart rhythm (PAROXYSMAL ATRIAL FIB) and Denies leg edema Resp Reports as per HPI GI Reports no additional complaints Reports no additional complaints Musc Reports abnormal gait (UNSTABLE ON FEET, USES WALKER FOR STABILITY), Reports back pain and Reports myalgias Skin/Breast Reports system reviewed and no additional complaints, except as documented Neuro Reports abnormal gait (UNSTABLE ON FEET, USES WALKER FOR STABILITY) Psych Reports no additional complaints Endo Reports other (DIABETES MELLITUS) Physical Exam Vital Signs: Last Vital Signs Pulse 63 07/04/24 11:15 BP 120/62 07/04/24 11:15 Pulse Ox 97 07/04/24 11:15 Oxygen Delivery Method Room Air 07/04/24 11:15 BMI result Body Mass Index 39.9 Const General: comfortable, no acute distress, alert and awake Orientation/consciousness: patient oriented x3 HEENT Head: Yes normal to inspection General nose exam: No nasal polyps present, No nasal discharge present and Other nasal findings present (Minimal, irritation over the nasal septumon right side is noted,no bleeding) Face and sinus: Yes sinuses nontender Mouth: oropharynx normal Throat: Yes posterior oropharynx normal Eyes General: appearance normal, both eyes and all related structures Neck Neck: Yes normal visual inspection, Yes no lymphadenopathy, Yes trachea midline and Yes no JVD Thyroid: Thyroid normal Chest Chest palpation & inspection: normal inspection of the chest, normal palpation of entire chest wall and no tenderness Resp Other: PERCUSSION NOTE NOT PERCEPTIBLE BECAUSE OF THICK CHEST WALL. BREATH SOUNDS ARE DISTANT BUT EQUAL ON BOTH SIDES. NO WHEEZES CREPITATIONS OR RHONCHI ARE HEARD. Cardio Palpation: normal PMI Rate: regular rate Rhythm: regular rhythm Heart sounds: no gallops and no murmurs GI Palpation (GI): Soft to palpation, nontender, No hepatosplenomegaly present, no masses and Other GI palpation findings present (ABDOMEN MODERATELY OBESE AND PROTUBERANT) Auscultation: normal bowel sounds Back/Spine/Pelvis Thoracic/Lumbar Spine: thoracic and lumbar spine normal to inspection and thoraco-lumbar ROM limited Skin General skin exam: dry skin Neuro General: patient oriented x3 and No no focal motor deficits (WEAKNESS OF LOWER EXTREMITIES) Cranial nerves: Yes CN's II-XII intact bilaterally Extrem General: Yes normal to inspection, Yes no calf tenderness and Yes edema (2 + EDEMA OF THE LEGS ) Psych Appearance: grossly normal and well kempt Speech and movement: Normal speech and movement present Quality Reporting (2019) Adult ([facility] 138/2/) Smoking risk assessment performed?: Yes Patient Tobacco Use Status: Never used Tobacco Results Reviewed Results Reviewed: COMPLIANCE REPORT FOR THE LAST 30 NIGHTS IS REVIEWED. SHE HAS USED 28/30 NIGHTS, 93%. AVERAGE USAGE PER NIGHT 3 HOURS 44 MINUTES WHICH IS STILL SOMEWHAT SUBOPTIMAL. THE PRESSURE THAT SHE USES IS RELATIVELY LOW, 7 CM. THERE IS SIGNIFICANT AIR LEAK, MAXIMUM 109 L . RESIDUAL AHI IS STILL 16 MOSTLY DUE TO OBSTRUCTIVE APNEA AND HYPOPNEAS. Assessment & Plan Assessment & Plan (1) Morbid obesity: Comment: SHE REMAINS GROSSLY OBESE. NOT IN ANY WEIGHT MANAGEMENT PROGRAM . NOT ABLE TO DO ANY EXERCISE, WALKS SLOW WITH WALKER. Code(s): E66.01 - Morbid (severe) obesity due to excess calories Category: Medical Plan: AGAIN TALKED TO THE PATIENT AND HER DAUGHTER THAT SHE NEEDS TO LOSE SOME WEIGHT EVEN IF SHE LOSES 1 OR 2 LB PER MONTH. SHE IS NOT IN ANY WEIGHT MANAGEMENT PROGRAM. BUT SHE WILL TRY TO RESTRICT HER DIETARY INTAKE. (2) Restrictive lung disease: Comment: KNOWN TO HAVE RESTRICTIVE LUNG DISEASE SINCE THE HER PULMONARY FUNCTION TEST IN 2012. CLINICALLY I AM SURE SHE DOES HAVE MODERATE DEGREE OF RESTRICTION, THIS IS SECONDARY TO MORBID OBESITY. SHE ALSO SEEMS TO HAVE MILD DEGREE OF ASTHMA/REACTIVE AIRWAYS. Code(s): J98.4 - Other disorders of lung Category: Medical Plan: NEEDS TO DO DEEP BREATHING EXERCISES 2 OR 3 TIMES A DAY. MAY USE ALBUTEROL HFA 2 PUFFS Q 6 HOURS P.R.N. IF ANY COUGH OR WHEEZING (3) BRYNN on CPAP: Comment: LONGSTANDING HISTORY OF OBSTRUCTIVE SLEEP APNEA. PRESSURE SETTING 7 CM. WHICH IS RELATIVELY LOW , F F MASK SHE IS USING IT REGULARLY EVERY NIGHT, BUT DURING THE NIGHT SHE HAPPENS TO PULL IT OFF, AND HER USAGE REMAINS SUBOPTIMAL ( ABOUT 3-1/2 HOURS PER NIGHT ) THERE IS SOME AIR LEAK . DUE TO THESE FACTORS HE HAS RESIDUAL AHI OF 16. Code(s): G47.33 - Obstructive sleep apnea (adult) (pediatric); Z99.89 - Dependence on other enabling machines and devices Category: Medical Plan: TALKED TO THE PATIENT THROUGH HER DAUGHTER. ADVISED TO TIGHTEN THE STRAPS WHEN SHE PUTS THE MASK ON. ADVISE THAT SHE HAS TO MAKE SURE THAT SHE DOES NOT PULL OF THE MASK DURING THE NIGHT, IT SHOULD COMES OF SHE NEEDS TO READJUSTED. Coding Level of Care Code Est Pt Level 3 (55085) Diagnoses Morbid obesity E66.01 Restrictive lung disease J98.4 BRYNN on CPAP G47.33; Z99.89
[2024-07-04 11:15] VITALS: BP 120/62; PULSE 63; O2SAT 97; BMI 39.9
--- OUTSIDE RECORDS SUMMARY | 2024-07-04 12:44 | XMS_ITS | Encounter Summary ---
Author Organization [facility] Address [address] [facility] [address] [facility] 200 [place] [address] Phone Care Team Providers Care Reinforcing Steel Worker Wire Mesh Name Role Phone Shara Verdugo MD Primary Care Provider [phone] Reason for Visit * Reason Comments Med Refill Encounter Details Date Type Department Care Team (Late st Contact Info) Description 10/16/2023 Refill [facility] [address] [facility] [facility] [facility] [place] [address] Darrell Santa MD [address] [facility] 204 [place] [address] Chronic kidney disease, stage 4 [...] hypertension documented in this encounter Care Teams Reinforcing Steel Worker Wire Mesh Relationship Specialty Start Date End Date Shara Verdugo MD [address] [place] [address] PCP - General 05/11/20 documented as of this encounter
--- OUTSIDE RECORDS SUMMARY | 2024-07-04 12:44 | XMS_ITS | Encounter Summary ---
Author Organization [facility] Address [address] [facility] 200 [place] [address] Phone Care Team Providers Care Case Liner Name Role Phone Shara Verdugo MD Primary Care Provider [phone] Encounter Details Date Type Department Care Team (Late st Contact Info) Description 10/03/2023 Office Communication [facility] [address] [facility] 200 [place] [address] Darrell Santa MD [address] [facility] 204 [place] [address] Social History Tobacco Use Types [...] on filedocumented in this encounter Care Teams Case Liner Relationship Specialty Start Date End Date Shara Verdugo MD [address] [place], [place] PCP - General 05/11/20 documented as of this encounter
--- OUTSIDE RECORDS SUMMARY | 2024-07-04 12:44 | XMS_ITS | Clinical Summary ---
Author Organization [facility] Address [address] [place] [address] Phone Care Team Providers Care Building Services Engineer Name Role Phone Shara Verdugo MD Primary Care Provider [phone] Allergies Active Allergy Reactions Criticality Noted Date [...] day and bolus. I did order freestyle carorl CGM hopefully she can get this. Resolved Problems Problem Noted Date Diagnosed Date Resolved Date Chronic kidney disease, stage 4 (severe) 08/02/2022 10/03/2022 Encounters Date Type Department Care Team Description 05/26/2024 Refill [facility] [address] [place] [address] Darrell Santa MD Chronic kidney disease, stage [...] this topic Insurance [facility] MEDICAID * Guarantor: Anna Escobar Account Type Relation to Patient Date of Phone Billing Address Personal/Family Self [address] [place] [address] [facility] MEDICAID Care Teams Building Services Engineer Relationship Specialty Start Date End Date Shara Verdugo MD [address] [place] [address] PCP - General 05/11/20
--- OUTSIDE RECORDS SUMMARY | 2024-07-04 12:44 | XMS_ITS | Encounter Summary ---
Author Organization [facility] Address [address] [facility] [address] [facility] 200 [place] [address] Phone Care Team Providers Care Manager Risk Management Name Role Phone Shara Verdugo MD Primary Care Provider [phone] Reason for Visit * Reason Comments Med Refill Encounter Details Date Type Department Care Team (Late st Contact Info) Description 05/26/2024 Refill [facility] [address] [place] [address] Darrell Santa MD [address] [facility] 204 [place] [address] Chronic kidney disease, stage 4 [...] hypertension documented in this encounter Care Teams Manager Risk Management Relationship Specialty Start Date End Date Shara Verdugo MD [address] [place] [address] PCP - General 05/11/20 documented as of this encounter
--- OUTSIDE RECORDS SUMMARY | 2024-07-04 12:44 | XMS_ITS | Clinical Summary ---
Author Organization [facility] Address [address] [facility] 7t [place] [address] Care Team Providers Care Physical Science Technician Name Role Phone Unavailable Primary Care Provider [...] Cancer Screening 08/06/1991 HPV/Cotest 08/06/1991 Mammogram 2001 Pneumococcal Vaccine: 50+ Ye ars (1 of 1 - PCV) 08/06/2011 Zoster Vaccines (1 of 2) 08/06/2011 COVID-19 [...]
--- OUTSIDE RECORDS SUMMARY | 2024-07-04 12:44 | XMS_ITS | Encounter Summary ---
Author Organization [facility] Address [address] [facility] 200 [place] [address] Phone Care Team Providers Care Electro Optical Engineer Name Role Phone Shara Verdugo MD Primary Care Provider [phone] Reason for Visit * Reason Comments Med Refill Encounter Details Date Type Department Care Team (Late st Contact Info) Description 10/03/2023 Refill [facility] [address] [place] [address] Darrell Santa MD [address] [facility] 204 [place] [address] Social History Tobacco Use Types [...] on filedocumented in this encounter Care Teams Electro Optical Engineer Relationship Specialty Start Date End Date Shara Verdugo MD [address] [place], [place] PCP - General 05/11/20 documented as of this encounter
--- OUTSIDE RECORDS SUMMARY | 2024-07-04 12:44 | XMS_ITS | Encounter Summary ---
Author Organization [facility] Address [address] [facility] 200 [place] [address] Phone Care Team Providers Care Combination Building Inspector Name Role Phone Shara Verdugo MD Primary Care Provider [phone] Encounter Details Date Type Department Care Team (Late st Contact Info) Description 03/14/2022 Telephone [facility] [address] [facility] 200 [place] [address] Shara Verdugo MD [address] [place] [address] Social History Tobacco Use Types Packs/Day Years [...] faxed over once complete. Please send to [facility] . Thank you documented in this encounter Plan of Treatment Not on file documented as of this encounter Visit Diagnoses Not on filedocumented in this encounter Care Teams Combination Building Inspector Relationship Specialty Start Date End Date Shara Verdugo MD [address] [place] [address] PCP - General 05/11/20 documented as of this encounter
--- OUTSIDE RECORDS SUMMARY | 2024-07-04 12:44 | XMS_ITS | Encounter Summary ---
Author Organization [employer] [facility] Address [address] [facility] [address] 7[address] [place] [address] Care Team Providers Care Hot Box Operator Name Role Phone Unavailable Primary Care [...]
== END 2024-07-04 11:39 | disposition home or self-care (01) ==
PROVIDERS: PCP Internal Medicine; Visit Provider Internal Medicine
DX: E66.01 Morbid (severe) obesity due to excess calories (principal); J98.4 Other disorders of lung; G47.33 Obstructive sleep apnea (adult) (pediatric); Z99.89 Dependence on other enabling machines and devices
CPT/HCPCS: 99213

== ENCOUNTER → 2024-07-04 10:39 | Outpatient (BNVA) | payer OTHER, SELFPAY | PROVIDERS: PCP Internal Medicine; Visit Provider Internal Medicine | DX: G47.33 Obstructive sleep apnea (adult) (pediatric) (principal); J45.909 Unspecified asthma, uncomplicated; J98.4 Other disorders of lung; E66.01 Morbid (severe) obesity due to excess calories; Z68.39 Body mass index [BMI] 39.0-39.9, adult; Z99.89 Dependence on other enabling machines and devices | CPT/HCPCS: 99212 ==

== ENCOUNTER 2024-07-10 13:28 | Outpatient (REF) | payer OTHER, SELFPAY ==
--- OUTSIDE RECORDS SUMMARY | 2024-07-10 15:55 | XMS_ITS | Encounter Summary ---
Author Organization [facility] Address [address] [facility] 200 [place] [address] Phone Care Team Providers Care Opener Tender Name Role Phone Shara Verdugo MD Primary Care Provider [phone] Reason for Visit * Reason Comments Med Refill Encounter Details Date Type Department Care Team (Late st Contact Info) Description 10/03/2023 Refill [facility] [address] [place] [address] Darrell Santa MD [address] [facility] 204 [place] [address] Social History Tobacco Use Types [...] on filedocumented in this encounter Care Teams Opener Tender Relationship Specialty Start Date End Date Shara Verdugo MD [address] [place], [place] PCP - General 05/11/20 documented as of this encounter
--- OUTSIDE RECORDS SUMMARY | 2024-07-10 15:55 | XMS_ITS | Encounter Summary ---
Author Organization [facility] Address [address] [facility] [address] [facility] 200 [place] [address] Phone Care Team Providers Care Net Mvc Developer Name Role Phone Shara Verdugo MD Primary Care Provider [phone] Reason for Visit * Reason Comments Med Refill Encounter Details Date Type Department Care Team (Late st Contact Info) Description 10/16/2023 Refill [facility] [address] [facility] [address] [address] [place] [address] Darrell Santa MD [address] [facility] 204 [place] [address] Chronic kidney disease, stage 4 [...] hypertension documented in this encounter Care Teams Net Mvc Developer Relationship Specialty Start Date End Date Shara Verdugo MD [address] [place] [address] PCP - General 05/11/20 documented as of this encounter
--- OUTSIDE RECORDS SUMMARY | 2024-07-10 15:55 | XMS_ITS | Clinical Summary ---
Author Organization [facility] [facility] Address [address] [facility] 7t [place] [address] Care Team Providers Care Receiving Inspector Name Role Phone Unavailable Primary Care Provider [...]
--- OUTSIDE RECORDS SUMMARY | 2024-07-10 15:55 | XMS_ITS | Encounter Summary ---
Author Organization [facility] Address [address] [facility] [address] [place] [address] Care Team Providers Care Printing Worker Supervisor Name Role Phone Unavailable Primary Care Provider [...]
--- OUTSIDE RECORDS SUMMARY | 2024-07-10 15:55 | XMS_ITS | Encounter Summary ---
Author Organization [facility] Address [address] [facility] [facility] [address] [facility] [address] [place] [address] Phone Care Team Providers Care Management Lead Name Role Phone Shara Verdugo MD Primary Care Provider [phone] Reason for Visit * Reason Comments Med Refill Encounter Details Date Type Department Care Team (Late st Contact Info) Description 05/26/2024 Refill [facility] [address] [facility] [address] [address] [place] [address] Darrell Santa MD [address] [facility] 204 [place] [address] Chronic kidney disease, stage 4 [...] hypertension documented in this encounter Care Teams Management Lead Relationship Specialty Start Date End Date Shara Verdugo MD [address] [facility] [address] [address] [place] [address] PCP - General 05/11/20 documented as of this encounter
--- OUTSIDE RECORDS SUMMARY | 2024-07-10 15:55 | XMS_ITS | Encounter Summary ---
Author Organization [facility] Address 100 [facility] 200 [place] [address] Phone Care Team Providers Care Printing Sign Machine Operator Name Role Phone Shara Verdugo MD Primary Care Provider [phone] Encounter Details Date Type Department Care Team (Late st Contact Info) Description 10/03/2023 Office Communication [facility] [address] [facility] 200 [place] [address] Darrell Santa MD [address] [facility] 204 [place] [address] Social History Tobacco Use Types [...] on filedocumented in this encounter Care Teams Printing Sign Machine Operator Relationship Specialty Start Date End Date Shara Verdugo MD [address] [facility] [facility] [facility] [address] [place], [place] PCP - General 05/11/20 documented as of this encounter
--- OUTSIDE RECORDS SUMMARY | 2024-07-10 15:55 | XMS_ITS | Clinical Summary ---
Author Organization [facility] Address [address] [place] [address] Phone Care Team Providers Care Statistics Manager Name Role Phone Shara Verdugo MD Primary Care Provider [phone] Allergies Active Allergy Reactions Criticality Noted Date [...] [facility] [place] [address] [place] [address] Darrell Santa MD Chronic kidney disease, stage [...] MEDICAL CTR MEDICAID CTR MEDICAID Care Teams Statistics Manager Relationship Specialty Start Date End Date Shara Verdugo MD [address] [place] [address] PCP - General 05/11/20
--- OUTSIDE RECORDS SUMMARY | 2024-07-10 15:55 | XMS_ITS | Encounter Summary ---
Author Organization [facility] Address [address] [facility] [address] [place] [address] Phone Care Team Providers Care Merchandise Processor Name Role Phone Shara Verdugo MD Primary Care Provider [phone] Encounter Details Date Type Department Care Team (Late st Contact Info) Description 03/14/2022 Telephone [facility] [address] [facility] [address] [place] [address] Shara Verdugo MD [address] [place] [address] Social History Tobacco Use Types Packs/Day Years [...] faxed over once complete. Please send to [facility] vascular . Thank you documented in this encounter Plan of Treatment Not on file documented as of this encounter Visit Diagnoses Not on filedocumented in this encounter Care Teams Merchandise Processor Relationship Specialty Start Date End Date Shara Verdugo MD [address] [place] [address] PCP - General 05/11/20 documented as of this encounter
== END 2024-07-10 13:29 | disposition home or self-care (01) ==
LOC: HO.MAMMO 13:28
PROVIDERS: PCP Internal Medicine; Visit Provider Internal Medicine
DX: Z12.31 Encounter for screening mammogram for malignant neoplasm of breast (principal)
CPT/HCPCS: 77063; 77067

== ENCOUNTER → 2024-07-10 13:30 | Outpatient (BNV) | payer OTHER, SELFPAY | PROVIDERS: PCP Internal Medicine; Visit Provider Internal Medicine | DX: Z12.31 Encounter for screening mammogram for malignant neoplasm of breast (principal) | CPT/HCPCS: 77063; 77067 ==

== ENCOUNTER 2024-07-12 13:38 | Outpatient (AMB) | payer OTHER, SELFPAY ==
[2024-07-12 13:44] VITALS: BP 130/62; PULSE 64; BMI 39.7
--- NOTE | 2024-07-12 13:44 | A.OFFVIS_ITS ---
Vital Signs 07/12/24 13:44 Height 5 ft 2 in Weight 216 lb 14.958 oz BMI 39.7 BP 130/62 Blood Pressure Location Rt brachial Position Sitting Pulse 64 Pulse Source Pulse Oximeter Intake Visit Reasons: 4Month f/u rs Farm Planner Required: No Momd Teacher: Momd Teacher Present Allergies lactose Allergy (Intermediate, Verified 07/12/24 13:47) Vomiting amlodipine Allergy (Mild, Verified 07/12/24 13:47) leg edema liraglutide [From VICTOZA] Allergy (Mild, Verified 07/12/24 13:47) VOMITING RUBI Medication List - Last Reconciled 07/12/24 by EWELINA Martin albuterol sulfate 90 mcg/actuation 2 puffs inhalation Q6H PRN 30 days alprazolam (Xanax) 0.5 mg PO BEDTIME PRN 5 days amitriptyline 25 mg PO BEDTIME 90 days amlodipine 5 mg PO DAILY 90 days apixaban (Eliquis) 5 mg PO BID 90 days ascorbic acid (vitamin C) (Vitamin C With Allie Hips) 500 mg PO DAILY 90 days blood sugar diagnostic As directed cholecalciferol (vitamin D3) 50 mcg PO DAILY 90 days clopidogrel (Plavix) 75 mg PO DAILY commode As directed dapagliflozin propanediol (Farxiga) 10 mg PO DAILY furosemide 40 mg PO BID gabapentin 300 mg PO BID 30 days hydralazine 25 mg PO BID insulin regular hum U-500 conc 0 - 450 units subcut DAILY PRN lactulose 10 grams (15 mL) PO BEDTIME PRN 30 days metoprolol tartrate 50 mg (2 x 25 mg) PO BID 90 days nitroglycerin mg sublingual potassium chloride ER 20 mEq PO DAILY [pulse oximeter As directed] rosuvastatin 40 mg PO DAILY 90 days sennosides (Senna Laxative) 17.2 mg (2 x 8.6 mg) PO BEDTIME PRN 30 days Shower Chair As directed walker with seat and wheels HPI HPI 4Mon f/u rs: Details: Anna is a 63-year-old female past medical history of hypertension, hyperlipidemia, diabetes, obesity, sleep apnea with CPAP use, CAD with coronary stent, status post coronary artery bypass grafting, diastolic Congestive heart failure with CardioMEMS device in place, CKD who presents for follow-up. Today she reports that she has been doing well since her visit in January. She has not had any recurrent hospitalizations. She denies chest discomfort at rest or with activity. No shortness of breath, PND, orthopnea or edema. No concerning heart palpitations, dizziness, presyncope, syncope, falls. Sleeps in a hospital bed with the head of the bed elevated which is her norm. Ambulates with a walker. Admits to being mostly sedentary. Daughter is present. Daughter assists with medications. Mostly compliant with CardioMEMS readings. [facility] Medical History Cataract (lens) fragments in eye following cataract surgery, right eye Cataract (lens) fragments in eye following cataract surgery, left eye Acute on chronic renal failure CHF exacerbation Afib Restrictive lung disease CKD (chronic kidney disease) stage 4, GFR 15-29 ml/min Right hemiparesis Cerebrovascular accident (CVA) due to occlusion of left middle cerebral artery Skin lesion Lumbar degenerative disc disease CKD (chronic kidney disease) BRYNN (obstructive sleep apnea) Arthritis Hypercholesteremia CAD (coronary artery disease) Sinusitis Stroke Asthma Hypertension Diabetes Surgical History History of esophagogastroduodenoscopy (EGD) H/O colonoscopy History of bilateral tubal ligation History of heart surgery History of coronary angioplasty with insertion of stent History of cataract surgery H/O right breast biopsy Family History Father Stroke Mother Myocardial infarction Paternal Uncle Cancer Family/Other Breast cancer Social History Household Members: Family Housing: House Are you a primary medicare coordinator to a significant other at home: No Alcohol intake: never Comment: family at bedside Patient Tobacco Use Status: Never used Tobacco e-Cigarette/Vaping Use: Never Used Second Hand Smoke Exposure: No Advance Directives Date on File: 01/25/22 service: No Current occupational status: unemployed and disabled Sexual orientation: Straight/Heterosexual Gender identity: Female Cognitive needs: Yes Hearing needs: No Vision needs: No Female Reproductive History Menstrual Age of Menarche: 14 Review of Systems Const All systems reviewed & are unremarkable except as noted in HPI and below ENT Denies dizziness Card Denies chest pain, Denies chest pain at rest, Denies chest pain with activity, Denies rapid heart rate, Denies pedal edema, Denies edema, Denies leg edema, Denies lightheadedness, Denies palpitations, Denies dyspnea, Denies dyspnea on exertion and Denies orthopnea Resp Denies cough, Denies dyspnea and Denies dyspnea on exertion GI Denies hematochezia and Denies change in stool character Musc Denies abnormal gait, Denies limited range of motion, Denies muscle cramps, Denies muscle weakness, Denies numbness, Denies radiating pain into limb, Denies stiffness and Denies tingling Neuro Denies abnormal gait, Denies dizziness, Denies numbness and Denies tingling Endo Denies palpitations Physical Exam Vital Signs: BMI result Body Mass Index 39.7 Const General: cooperative, healthy appearing, comfortable and no acute distress Orientation/consciousness: patient oriented x3 Neck Neck: Yes normal visual inspection Resp Effort & Inspection: normal respiratory effort Auscultation: clear to auscultation bilaterally, no rales, no rhonchi and no wheezes Cardio Rate: regular rate Rhythm: regular rhythm Heart sounds: S1 normal heart sound present, S2 normal heart sound present, no murmurs and no rubs Neuro General: patient oriented x3 Extrem Other: soft edema lower legs Right > Left Psych Appearance: grossly normal Mental Status: mental status grossly normal Speech and movement: Normal speech and movement present Quality Reporting (2019) Adult ([facility] 138/06/22/68) Smoking risk assessment performed?: Yes Patient Tobacco Use Status: Never used Tobacco Assessment & Plan Assessment & Plan (1) Chronic heart failure with preserved ejection fraction (HFpEF): Code(s): I50.32 - Chronic diastolic (congestive) heart failure Category: Medical Plan: History of Heart failure preserved ejection fraction which has been difficult to control at times in the past and she then had CardioMEMS device placed. This helps to monitor her PA readings to allow for more immediate evaluation and treatment. She has been mostly compliant with her readings. At times her PA pressures are elevated and her diuretics are temporarily increased for a few days, at my direction. On exam today she does not appear fluid overloaded. Her PA reading is at goal currently. Last echo 09/26/2023 showed EF 50%, grade 2 diastolic dysfunction, basal inferior akinetic. Reviewed low-salt diet, ongoing med compliance, CardioMEMS readings at least 3 times weekly. No med changes m jesse at this time. Signs and symptoms of heart failure reviewed with her. Continue CPAP use. Cardiology follow-up 4 months, sooner if needed. (2) CAD (coronary artery disease): Code(s): I25.10 - Atherosclerotic heart disease of [place] coronary artery without angina pectoris Category: Medical Plan: History of CAD with prior stenting as well as coronary artery bypass grafting. Nuclear stress test done 01/18/2024 does show mid to distal LAD territory ischemia, mild intensity. Patient denies any anginal sounding symptoms. This result was previously reviewed with Dr. Horton and plan is to continue with medical management. If she develops symptoms then further evaluation with cardiac catheterization will be needed. Signs and symptoms of angina reviewed with her. Instructed to notify this office if she has new symptoms or to seek emergency care if symptoms not relieved with rest. Continue aggressive risk factor modification. She is not on aspirin as she is on Eliquis. She continues on Plavix. Continue aggressive blood pressure control- currently with hydralazine, metoprolol, Lasix. Aggressive diabetes management goal hemoglobin A1c less than 7%. Continue rosuvastatin 40 mg daily with LDL goal less than 70 mg/dL. (3) Paroxysmal atrial fibrillation: Code(s): I48.0 - Paroxysmal atrial fibrillation Category: Medical Plan: History of paroxysmal atrial fibrillation. Which has been clinically suppressed. Pulse is very regular on examination today: Clinically in sinus rhythm. Last EKG shows sinus rhythm, left bundle branch block which is not new. Continue metoprolol for heart rate control and Eliquis for anticoagulation. Labs done 05/13/2024 showed hemoglobin 13, creatinine 1.75. (4) Abnormal nuclear stress test: Code(s): R94.39 - Abnormal result of other cardiovascular function study Category: Medical Plan: As above. Continue medical management. (5) Presence of CardioMEMS HF system: Code(s): Z95.818 - Presence of other cardiac implants and grafts Category: Medical Plan: As above. PA monitoring done through our office and documented in this record. (6) CKD (chronic kidney disease) stage 3, GFR 30-59 ml/min: Code(s): N18.30 - Chronic kidney disease, stage 3 unspecified Category: Medical Qualifiers: Chronic kidney disease stage 3 subtype: stage 3b (GFR 30-44) Qualified Code(s): N18.32 - Chronic kidney disease, stage 3b Plan: Follows with Nephrology (7) Left bundle branch block: Code(s): I44.7 - Left bundle-branch block, unspecified Category: Medical Plan: Noted on EKGs, not new. Last echo showing low normal EF. Will plan a repeat echo prior to next visit. Plan Time spent on chart review, documentation, interview and assessment Orders: Orders CA echo transthoracic complete Today I44.7 - Left bundle-branch block, unspecified, I48.0 - Paroxysmal atrial fibrillation Coding Level of Care Code Est Pt Level 4 (27365) Complex EM visit Add On G2211 Diagnoses Chronic heart failure with preserved ejection fraction (HFpEF) I50.32 CAD (coronary artery disease) I25.10 Paroxysmal atrial fibrillation I48.0 Abnormal nuclear stress test R94.39 Presence of CardioMEMS HF system Z95.818 Stage 3b chronic kidney disease N18.32 Chronic kidney disease stage 3 subtype: stage 3b (GFR 30-44) Left bundle branch block I44.7 Time Spent (min) 36
--- OUTSIDE RECORDS SUMMARY | 2024-07-12 15:14 | XMS_ITS | Clinical Summary ---
Author Organization [facility] Address [address] [place] [address] Phone Care Team Providers Care Business Project Manager Name Role Phone Shara Verdugo MD Primary Care Provider [phone] Allergies Active Allergy Reactions Criticality Noted Date [...] currently on metoprolol. I do not see CHDAD inhibitor or angiotensin receptor blockers. She has [...] [facility] [address] [place] [address] Darrell Santa MD Chronic kidney disease, stage [...] MEDICAL CTR MEDICAID CTR MEDICAID Care Teams Business Project Manager Relationship Specialty Start Date End Date Shara Verdugo MD [address] [place] [address] PCP - General 05/11/20
--- OUTSIDE RECORDS SUMMARY | 2024-07-12 15:14 | XMS_ITS | Encounter Summary ---
Author Organization [facility] Address [address] [facility] [address] [address] [facility] [address] [place] [address] Phone Care Team Providers Care Odd Ticket Clerk Name Role Phone Shara Verdugo MD Primary Care Provider [phone] Reason for Visit * Reason Comments Med Refill Encounter Details Date Type Department Care Team (Late st Contact Info) Description 05/26/2024 Refill [facility] [address] [place] [address] Darrell Santa MD [address] [facility] [address] [place] [address] Chronic kidney disease, stage 4 [...] hypertension documented in this encounter Care Teams Odd Ticket Clerk Relationship Specialty Start Date End Date Shara Verdugo MD [address] [place] [address] PCP - General 05/11/20 documented as of this encounter
--- OUTSIDE RECORDS SUMMARY | 2024-07-12 15:14 | XMS_ITS | Encounter Summary ---
Author Organization [facility] Address [address] [facility] 200 [place] [address] Phone Care Team Providers Care Newswriter Name Role Phone Shara Verdugo MD Primary Care Provider [phone] Reason for Visit * Reason Comments Med Refill Encounter Details Date Type Department Care Team (Late st Contact Info) Description 10/03/2023 Refill [facility] [address] [place] [address] Darrell Santa MD [address] [facility] [address] [place] [address] Social History Tobacco Use Types [...] on filedocumented in this encounter Care Teams Newswriter Relationship Specialty Start Date End Date Shara Verdugo MD [address] [place], [place] PCP - General 05/11/20 documented as of this encounter
--- OUTSIDE RECORDS SUMMARY | 2024-07-12 15:14 | XMS_ITS | Encounter Summary ---
Author Organization [facility] Address [address] [facility] 200 [place] [address] Phone Care Team Providers Care Housemaid Name Role Phone Shara Verdugo MD Primary Care Provider [phone] Encounter Details Date Type Department Care Team (Late st Contact Info) Description 10/03/2023 Office Communication [facility] [address] [facility] 200 [place] [address] Darrell Santa MD [address] [facility] [address] [place] [address] Social History Tobacco Use Types [...] on filedocumented in this encounter Care Teams Housemaid Relationship Specialty Start Date End Date Shara Verdugo MD [address] [place], [place] PCP - General 05/11/20 documented as of this encounter
--- OUTSIDE RECORDS SUMMARY | 2024-07-12 15:14 | XMS_ITS | Encounter Summary ---
Author Organization [facility] Address [address] [facility] 200 [place] [address] Phone Care Team Providers Care Transportation Clerk Name Role Phone Shara Verdugo MD Primary Care Provider [phone] Encounter Details Date Type Department Care Team (Late st Contact Info) Description 03/14/2022 Telephone [facility] [address] [facility] [address] [place] [address] Shara Verdugo MD [address] [place] [address] Social History Tobacco Use Types Packs/Day Years [...] faxed over once complete. Please send to [facility] vascular . Thank you documented in this encounter Plan of Treatment Not on file documented as of this encounter Visit Diagnoses Not on filedocumented in this encounter Care Teams Transportation Clerk Relationship Specialty Start Date End Date Shara Verdugo MD [address] [place] [address] PCP - General 05/11/20 documented as of this encounter
--- OUTSIDE RECORDS SUMMARY | 2024-07-12 15:14 | XMS_ITS | Encounter Summary ---
Author Organization [facility] Address [address] [facility] [address] [facility] 200 [place] [address] Phone Care Team Providers Care Trim Sawyer Name Role Phone Shara Verdugo MD Primary Care Provider [phone] Reason for Visit * Reason Comments Med Refill Encounter Details Date Type Department Care Team (Late st Contact Info) Description 10/16/2023 Refill [facility] [address] [facility] [address] [place] [address] Darrell Santa MD [address] [facility] [address] [place] [address] Chronic kidney disease, stage 4 [...] hypertension documented in this encounter Care Teams Trim Sawyer Relationship Specialty Start Date End Date Shara Verdugo MD [address] [facility] [address] [address] [address] [place] [address] PCP - General 05/11/20 documented as of this encounter
== END 2024-07-12 14:09 | disposition home or self-care (01) ==
LOC: HO.HCS 13:39
PROVIDERS: PCP Internal Medicine; Visit Provider Nurse Practitioner Family
DX: I50.32 Chronic diastolic (congestive) heart failure (principal); I25.10 Atherosclerotic heart disease of native coronary artery without angina pectoris; I48.0 Paroxysmal atrial fibrillation; R94.39 Abnormal result of other cardiovascular function study; Z95.818 Presence of other cardiac implants and grafts; N18.32 Chronic kidney disease, stage 3b; I44.7 Left bundle-branch block, unspecified
CPT/HCPCS: 99214; G2211

== ENCOUNTER → 2024-07-12 13:38 | Outpatient (BNVA) | payer OTHER, SELFPAY | PROVIDERS: PCP Internal Medicine; Visit Provider Nurse Practitioner Family | DX: I25.10 Atherosclerotic heart disease of native coronary artery without angina pectoris (principal); I13.0 Hypertensive heart and chronic kidney disease with heart failure and stage 1 through stage 4 chronic kidney disease, or unspecified chronic kidney disease; I50.32 Chronic diastolic (congestive) heart failure; N18.32 Chronic kidney disease, stage 3b; I48.0 Paroxysmal atrial fibrillation; I44.7 Left bundle-branch block, unspecified; R94.39 Abnormal result of other cardiovascular function study; Z95.818 Presence of other cardiac implants and grafts | CPT/HCPCS: 99212 ==

== ENCOUNTER → 2024-07-23 23:59 | Outpatient (BNV) | payer OTHER, SELFPAY ==
--- NOTE | 2024-07-26 17:02 | A.OFFVIS_ITS ---
Intake Visit Reasons: Remote [facility] Allergies lactose Allergy (Intermediate, Verified 07/12/24 13:47) Vomiting amlodipine Allergy (Mild, Verified 07/12/24 13:47) leg edema liraglutide [From VICTOZA] Allergy (Mild, Verified 07/12/24 13:47) VOMITING RUBI PFSH Medical History Cataract (lens) fragments in eye following cataract surgery, right eye Cataract (lens) fragments in eye following cataract surgery, left eye Acute on chronic renal failure CHF exacerbation Afib Restrictive lung disease CKD (chronic kidney disease) stage 4, GFR 15-29 ml/min Right hemiparesis Cerebrovascular accident (CVA) due to occlusion of left middle cerebral artery Skin lesion Lumbar degenerative disc disease CKD (chronic kidney disease) BRYNN (obstructive sleep apnea) Arthritis Hypercholesteremia CAD (coronary artery disease) Sinusitis Stroke Asthma Hypertension Diabetes Surgical History History of esophagogastroduodenoscopy (EGD) H/O colonoscopy History of bilateral tubal ligation History of heart surgery History of coronary angioplasty with insertion of stent History of cataract surgery H/O right breast biopsy Family History Father Stroke Mother Myocardial infarction Paternal Uncle Cancer Family/Other Breast cancer Social History Household Members: Family Housing: House Are you a primary career technical education teacher to a significant other at home: No Alcohol intake: never Comment: family at bedside Patient Tobacco Use Status: Never used Tobacco e-Cigarette/Vaping Use: Never Used Second Hand Smoke Exposure: No Advance Directives Date on File: 01/25/22 service: No Current occupational status: unemployed and disabled Sexual orientation: Straight/Heterosexual Gender identity: Female Cognitive needs: Yes Hearing needs: No Vision needs: No Female Reproductive History Menstrual Age of Menarche: 14 Office Procedures Cardiac Device Check Cardiac Device Check Details: Monitoring period dates: 06/22/24 - Optimal PA pressure range: LOREN goal 30mmhg Procedure code: 16217 BACKGROUND: Anna is implanted with the CardioMEMS PA Sensor.? I use this technology to monitor PA pressures on a weekly basis to ensure patients are within their optimal range to prevent decompensation.? SUMMARY:? I utilized the remote monitoring platform ([employer]) to set optimal targets for pulmonary artery pressure thresholds as part of acute and chronic management of patient?s heart failure. During the period indicated above, I monitored the patient?s pulmonary artery pressures weekly via trend analysis and notification reports which provide alerts when patient?s PA pressures were outside of range to prompt immediate action in medication changes and communications.? The weekly reports are archived in the [employer] system which serve as a parallel record to document weekly PA pressures, medication changes, and clinical notes. I have reviewed readings on 06/28, 07/05, 07/22, 07/19, 07/23. Readings have ranged between 28-34mmhg. Diuretics temporarily increased when needed for elevated readings. Seen in office. Has been averaging readings about twice weekly. She has been instructed to do them 3 times weekly. 95978 - Remote monitoring of wireless pulmonary artery pressure sensor Procedure code (CPT) selection complete Assessment & Plan Assessment & Plan (1) Presence of CardioMEMS HF system: Code(s): Z95.818 - Presence of other cardiac implants and grafts Category: Medical Plan: monthly report Coding Level of Care Code Procedure Only Diagnoses Presence of CardioMEMS HF system Z95.818 CPT Codes Cardiac Device Check - Cardiac Device 17: 02016 - Remote monitoring of wireless pulmonary artery pressure sensor ([id number])
== END ==
PROVIDERS: PCP Internal Medicine; Visit Provider Nurse Practitioner Family
DX: Z45.09 Encounter for adjustment and management of other cardiac device (principal)
CPT/HCPCS: 93264

== ENCOUNTER 2024-08-01 14:10 | Outpatient (AMB) | payer OTHER, SELFPAY ==
--- NOTE | 2024-08-01 14:16 | MHC.PC.OV ---
Vital Signs 08/01/24 14:18 Height 5 ft 2 in Weight 216 lb 0.848 oz BMI 39.5 BP 126/70 Blood Pressure Location Rt brachial Position Sitting Intake Visit Reasons: Annual Exam Intake Note: Patient here for an annual physical exam Spinner Box Required: No Accompanied by: Daughter Allergies lactose Allergy (Intermediate, Verified 08/01/24 14:41) Vomiting amlodipine Allergy (Mild, Verified 08/01/24 14:41) leg edema liraglutide [From VICTOZA] Allergy (Mild, Verified 08/01/24 14:41) VOMITING RUBI Medication List - Last Reconciled 08/01/24 by Shara Grimes MD albuterol sulfate 90 mcg/actuation 2 puffs inhalation Q6H PRN 30 days alprazolam (Xanax) 0.5 mg PO BEDTIME PRN 5 days amitriptyline 25 mg PO BEDTIME 90 days amlodipine 5 mg PO DAILY 90 days apixaban (Eliquis) 5 mg PO BID 90 days ascorbic acid (vitamin C) (Vitamin C With Allie Hips) 500 mg PO DAILY 90 days blood sugar diagnostic As directed cholecalciferol (vitamin D3) 50 mcg PO DAILY 90 days clopidogrel (Plavix) 75 mg PO DAILY commode As directed dapagliflozin propanediol (Farxiga) 10 mg PO DAILY furosemide 40 mg PO BID gabapentin 300 mg PO BID 30 days hydralazine 25 mg PO BID insulin regular hum U-500 conc 0 - 450 units subcut DAILY PRN lactulose 10 grams (15 mL) PO BEDTIME PRN 30 days metoprolol tartrate 50 mg (2 x 25 mg) PO BID 90 days nitroglycerin mg sublingual potassium chloride ER 20 mEq PO DAILY [pulse oximeter As directed] rosuvastatin 40 mg PO DAILY 90 days sennosides (Senna Laxative) 17.2 mg (2 x 8.6 mg) PO BEDTIME PRN 30 days Shower Chair As directed walker with seat and wheels Tobacco use date assessed: 08/01/24 Dental Screening Dental Screen Date: 08/01/24 Did you have a dental visit in the last 12 months?: No Did you have a dental problem in the last 6 months where you did not have access to dental care?: No Was dental information given to patient?: Patient declined HPI HPI Comments History of Present Illness Details The patient is a 63-year-old female presenting for an annual physical examination. Her medical history is notable for congestive heart failure, with enzymatic elevations noted earlier in the year, and a history of Type 2 Diabetes Mellitus with elevated hemoglobin A1c at 8.9. She also has end-stage renal disease (GFR of 29), with an established front office secretary involved in her care. Hyperlipidemia is actively managed, with documented medication adjustments. She also has history of CVA with right hemiparesis and atrial fibrillation. The patient underwent coronary artery bypass grafting and reports stable heart failure symptoms with no recent exacerbations. Cataract surgery was also performed in the past. Family history includes significant cardiovascular events, consistent with her clinical profile. The patient experiences and manages chronic constipation with senna and tuberose. She reports a medication allergy to amlodipine and Bictosa, resulting in adverse effects such as swelling and vomiting. A recent office visit noted slightly low potassium levels requiring further monitoring. The social history reveals no current or past use of alcohol or smoking. Currently, the patient is also concerned about a two-day history of an abdominal mass and related stomach pain. - Pneumonia vaccination was due and discussed: recommended based on past vaccination history but she declined. - Mammography results were satisfactory, with no noted osteoarthritic changes. - Hemoglobin levels checked in May were within normal parameters. - Potassium level noted as low, planned for monitoring. - Renal function (GFR 29), evaluated and discussed due to ESRD history. - Diabetes monitoring shows an A1c of 8.9%, noted to be higher than previous readings. - Cardiac enzymes in May indicated compensated heart failure. - Screening for hyperlipidemia via rosuvastatin treatment; further cholesterol checks required. [facility] Medical History (Updated 08/01/24 @ 15:32 by Shara Grimes MD) Congestive heart failure Acute kidney injury superimposed on chronic kidney disease Diabetic foot ulcer Cataract (lens) fragments in eye following cataract surgery, right eye Cataract (lens) fragments in eye following cataract surgery, left eye Acute on chronic renal failure CHF exacerbation Afib Restrictive lung disease CKD (chronic kidney disease) stage 4, GFR 15-29 ml/min Right hemiparesis Cerebrovascular accident (CVA) due to occlusion of left middle cerebral artery Skin lesion Lumbar degenerative disc disease CKD (chronic kidney disease) BRYNN (obstructive sleep apnea) Arthritis Hypercholesteremia CAD (coronary artery disease) Sinusitis Stroke Asthma Hypertension Diabetes Surgical History History of esophagogastroduodenoscopy (EGD) H/O colonoscopy History of bilateral tubal ligation History of heart surgery History of coronary angioplasty with insertion of stent History of cataract surgery H/O right breast biopsy Family History Father Stroke Mother Myocardial infarction Paternal Uncle Cancer Family/Other Breast cancer Social History Household Members: Family Housing: House Are you a primary residential care officer to a significant other at home: No Alcohol intake: never Comment: family at bedside Patient Tobacco Use Status: Never used Tobacco e-Cigarette/Vaping Use: Never Used Second Hand Smoke Exposure: No Advance Directives Date on File: 01/25/22 service: No Current occupational status: unemployed and disabled Sexual orientation: Straight/Heterosexual Gender identity: Female Cognitive needs: Yes Hearing needs: No Vision needs: No Female Reproductive History Menstrual Age of Menarche: 14 Questionnaire Thrive Questionnaire Date Thrive assessed: 08/01/24 I am a: Patient What is your living situation today?: I have a steady place to live Within the past 12 months, did the food you bought not last and you didn't have the money to get more?: Never true Within the past 12 months, did you worry whether your food would run out before you got money to buy more?: Never true Do you have trouble paying for medicines?: No Do you have trouble getting transportation to medical appointments?: No Do you have trouble paying your heating and electricity bill?: No Do you have trouble taking care of your child, family member or friend?: No Do you have trouble with day-to-day activities such as bathing, preparing meals, shopping, managing finances, etc.?: No Are you currently unemployed and looking for a job?: No Are you interested in more education?: No Please select the resources that you would like help with: None Currently or been in a relationship where the following occur: No concerns reported THRIVE Score: 0 AUDIT C Alcohol Use Questionnaire (AUDIT-C) 1. How often do you have a drink containing alcohol?: Never Total Score: 0 Score Reviewed/Action Taken: No SILVANA-7 AMB Questionnaire SILVANA-7 Date SILVANA - 7 assessed: 08/01/24 Feeling nervous, anxious, or on edge: 0 = Not at all Not being able to stop or control worryin = Not at all Worrying too much about different things: 0 = Not at all Trouble relaxin = Not at all Being so restless that it is hard to sit still: 0 = Not at all Becoming easily annoyed or irritable: 0 = Not at all Feeling afraid as if something awful might happen: 0 = Not at all Total SILVANA-7 score (0-4 normal; 5-9 mild; 10-14 moderate; 15-21 severe): 0 Source: Developed by Drs. Royce Nielsen, Sarah Dunbar, Farhan Bird and colleagues, with an educational maya from [employer]. SLIVANA-7 Assessment Billing SILVANA-7 Assessment Tool: SILVANA-7 Assessment 70058 Review of Systems Const All systems reviewed & are unremarkable except as noted in HPI and below Card Denies chest pain at rest, Denies chest pain with activity, Denies edema, Denies irregular heart rhythm, Denies claudication, Denies dyspnea, Denies dyspnea on exertion, Denies orthopnea, Denies paroxysmal nocturnal dyspnea and Denies slow heart rate Resp Denies cough, Denies dyspnea and Denies dyspnea on exertion GI Denies abdominal pain, Denies change in bowel habits, Denies excessive flatus, Denies nausea and Denies vomiting Denies urinary incontinence, Denies urinary hesitancy and Denies urinary urgency Musc Denies atrophy, Denies deformity and Denies limited range of motion Skin/Breast Denies bleeding lesions, Denies changing lesions and Denies rash Physical exam (Primary Care) Vital Signs: Last Vital Signs BP 126/70 08/01/24 14:18 BMI result Body Mass Index 39.5 BMI Assessment/Plan discussion: High BMI High, discussed plan: lifestyle, weight reduction, dietary and physical activity Tobacco/Smoking Status: Tobacco use Status Tobacco use date assessed 08/01/24 08/01/24 14:28 Patient Tobacco Use Status Never used Tobacco 08/01/24 14:28 e-Cigarette/Vaping Use Never Used 08/01/24 14:28 Thrive Assessment: Date of Thrive Assessment Date Thrive assessed 08/01/24 08/01/24 14:28 Currently or been in a relationship where the following occur: No concerns reported Const Limitations: ambulation with walker HENMT Head: Yes normal to inspection, Yes normocephalic and Yes atraumatic Ears: external ears normal Eyes General: appearance normal, both eyes and all related structures Eyelids: Yes eyelids normal Conjunctivae: conjunctivae normal Neck Neck: Yes normal visual inspection and Yes supple Resp Effort & Inspection: normal respiratory effort Auscultation: clear to auscultation bilaterally Cardio Jugular venous distension: no JVD Rate: regular rate Rhythm: regular rhythm Heart sounds: S1 normal heart sound present and S2 normal heart sound present GI Inspection: Yes normal to inspection Palpation (GI): Soft to palpation and nontender Auscultation: normal bowel sounds Skin General skin exam: no rashes or lesions noted Psych Appearance: grossly normal Results AMB Hemoglobin A1c AMB Hemoglobin A1c 8.9 % Last Edit by CHARLY Mobley on 08/01/24 14:32 Results Reviewed Results Reviewed: Laboratory Last Values Hgb A1c (Clinic) 8.9 % (4.0-6.0) H 08/01/24 14:15 Coding Level of Care Code Est Pt Level 3 (72690) Est Pt Prev Care 40-64y(04811) Diagnoses Physical exam Z00.00 Right hemiparesis G81.91 Chronic heart failure with preserved ejection fraction (HFpEF) I50.32 Type 2 diabetes mellitus with hyperglycemia, with long-term current use of insulin E11.65; Z79.4 Diabetes mellitus complication status: with hyperglycemia Paroxysmal atrial fibrillation I48.0 Cerebrovascular accident (CVA) due to occlusion of left middle cerebral artery I63.512 Abdominal pain R10.9 CKD (chronic kidney disease) stage 4, GFR 15-29 ml/min N18.4 Additional Codes SILVANA-7 Assessment Billing - SILVANA-7 Assessment Tool: SILVANA-7 Assessment 93812 ([id number]) Time Spent (min) 35 Assessment & Plan Assessment & Plan (1) Physical exam: Code(s): Z00.00 - Encounter for general adult medical examination without abnormal findings Category: Medical (2) Right hemiparesis: Code(s): G81.91 - Hemiplegia, unspecified affecting right dominant side Category: Medical (3) Chronic heart failure with preserved ejection fraction (HFpEF): Code(s): I50.32 - Chronic diastolic (congestive) heart failure Category: Medical (4) Type 2 diabetes mellitus, with long-term current use of insulin: Code(s): E11.9 - Type 2 diabetes mellitus without complications; Z79.4 - group home (current) use of insulin Category: Medical Qualifiers: Diabetes mellitus complication status: with hyperglycemia Qualified Code(s): E11.65 - Type 2 diabetes mellitus with hyperglycemia; Z79.4 - exterminator helper termite (current) use of insulin (5) Paroxysmal atrial fibrillation: Code(s): I48.0 - Paroxysmal atrial fibrillation Category: Medical (6) Cerebrovascular accident (CVA) due to occlusion of left middle cerebral artery: Code(s): I63.512 - Cerebral infarction due to unspecified occlusion or stenosis of left middle cerebral artery Category: Medical (7) Abdominal pain: Code(s): R10.9 - Unspecified abdominal pain Category: Medical (8) CKD (chronic kidney disease) stage 4, GFR 15-29 ml/min: Code(s): N18.4 - Chronic kidney disease, stage 4 (severe) Category: Medical Plan The visit addressed chronic conditions such as heart failure and diabetes, where adjustments for uncontrolled glucose were advised based on her elevated A1c. A review of medications and consultation with her heavy equipment operating engineer for her diabetes management was recommended. Her heart failure is stable with no recent exacerbations; however, continued monitoring was discussed. Regarding her abdominal mass, initial observation was suggested with further assessment to follow if symptoms persist or worsen. Scheduled pneumococcal vaccination was recommended, and I highlighted the importance of regular checkups with her renal specialist alongside a review of cardiovascular status. Lifestyle advice concerning her chronic conditions was reinforced. Patient was informed and verbally consented to the use of an ambient scribe for clinic note documentation during this visit. I discussed with the patient the status of her chronic medical conditions, including congestive heart failure, diabetes management, and renal disease monitoring. The increase in her A1c was noted, and I emphasized the need for tighter glucose control while coordinating with her heavy equipment operating engineer. Recommendations for quarterly follow-ups with her sleeve ironer for heart failure management were provided. For the abdominal lump, I discussed initial conservative observation, highlighting expectations and steps for further evaluation if needed. The scheduling of her pneumonia vaccination was aligned with vaccination timelines. I reaffirmed the importance of lifestyle modifications, routine medical surveillance, and the significance of maintaining regular contact with specialty care providers. Consent for present recommendations was discussed and agreed upon with the patient. Orders: Orders Microalbumin, Random (w Creat) Today R80.9 - Proteinuria, unspecified Vitamin D 25-OH Total Today E55.9 - Vitamin D deficiency, unspecified AMB Hemoglobin A1c Today E11.65 - Type 2 diabetes mellitus with hyperglycemia, Z79.4 - exterminator helper termite (current) use of insulin XR DEXA axial skeleton Today Z78.0 - Asymptomatic menopausal state Lipid Panel Today E78.5 - Hyperlipidemia, unspecified Comprehensive [place]. Panel Fast Today R10.9 - Unspecified abdominal pain Referrals Gastroenterology Referral R10.9 - Unspecified abdominal pain Cologuard Test Z12.11 - Encounter for screening for malignant neoplasm of colon, Z12.12 - Encounter for screening for malignant neoplasm of rectum Medications: New pantoprazole 40 mg PO DAILY 90 days 90 tabs 0RF Changed From hydralazine 25 mg PO BID To hydralazine 25 mg PO BID 90 days 180 tabs 1RF Patient Instructions: - Monitor blood sugar levels regularly and follow up with your heavy equipment operating engineer for any necessary adjustments. - Get your pneumonia vaccine as discussed during the visit. - Keep track of any changes or worsening symptoms related to the abdominal mass and contact me if concerns arise. - Maintain regular appointments with your kidney and heart specialists. - Continue with prescribed medications and report any new side effects. - Ensure dietary adjustments to manage lactose intolerance and diabetes effectively. - Adopt healthy living practices, including balanced nutrition and moderate physical activity as able. - Return for follow-up appointments as scheduled.
[2024-08-01 14:18] VITALS: BP 126/70; BMI 39.5
--- OUTSIDE RECORDS SUMMARY | 2024-08-01 15:39 | XMS_ITS | Encounter Summary ---
Author Organization [facility] Address [address] [facility] [address] [place] [address] Phone Care Team Providers Care Utility Forester Name Role Phone Shara Verdugo MD Primary Care Provider [phone] Reason for Visit * Reason Comments Med Refill Encounter Details Date Type Department Care Team (Late st Contact Info) Description 10/16/2023 Refill [facility] [address] [place] [address] [place] [address] Darrell Santa MD [address] [facility] [address] [place] [address] Chronic kidney disease, stage 4 [...] hypertension documented in this encounter Care Teams Utility Forester Relationship Specialty Start Date End Date Shara Verdugo MD [address] [place] [address] PCP - General 05/11/20 documented as of this encounter
--- OUTSIDE RECORDS SUMMARY | 2024-08-01 15:39 | XMS_ITS | Encounter Summary ---
Author Organization [facility] Address [address] [facility] [address] [place] [address] Phone Care Team Providers Care Coagulating Operator Name Role Phone Shara Verdugo MD Primary Care Provider [phone] Encounter Details Date Type Department Care Team (Late st Contact Info) Description 03/14/2022 Telephone [facility] [address] [facility] [address] [place] [address] Shara Verdugo MD [address] [place] [address] Social History Tobacco Use Types Packs/Day Years [...] faxed over once complete. Please send to [facility] . Thank you documented in this encounter Plan of Treatment Not on file documented as of this encounter Visit Diagnoses Not on filedocumented in this encounter Care Teams Coagulating Operator Relationship Specialty Start Date End Date Shara Verdugo MD [address] [place] [address] PCP - General 05/11/20 documented as of this encounter
--- OUTSIDE RECORDS SUMMARY | 2024-08-01 15:39 | XMS_ITS | Encounter Summary ---
Author Organization [facility] Address [address] [facility] [address] [place] [address] Phone Care Team Providers Care Obstetrics Nurse Practitioner Name Role Phone Shara Verdugo MD Primary Care Provider Encounter Details Date Type Department Care Team (Late st Contact Info) Description 10/03/2023 Office Communication [facility] [address] [facility] [address] [place] [address] Darrell Santa MD [address] [facility] [address] [place] [address] Social History Tobacco Use Types [...] on filedocumented in this encounter Care Teams Obstetrics Nurse Practitioner Relationship Specialty Start Date End Date Shara Verdugo MD [address] [place], [place] PCP - General 05/11/20 documented as of this encounter
--- OUTSIDE RECORDS SUMMARY | 2024-08-01 15:39 | XMS_ITS | Encounter Summary ---
Author Organization [employer] [facility] Address [address] [place] [address] Care Team Providers Care Scrap Sawyer Name Role Phone Unavailable Primary Care Provider [...]
--- OUTSIDE RECORDS SUMMARY | 2024-08-01 15:39 | XMS_ITS | Encounter Summary ---
Author Organization [facility] Address [address] [facility] [address] [place] [address] Phone Care Team Providers Care Bumper Straightener Name Role Phone Shara Verdugo MD Primary Care Provider [phone] Reason for Visit * Reason Comments Med Refill Encounter Details Date Type Department Care Team (Late st Contact Info) Description 05/26/2024 Refill [facility] [address] [place] [address] Darrell Santa MD [address] [facility] [address] [place] [address] Chronic kidney disease, stage 4 [...] hypertension documented in this encounter Care Teams Bumper Straightener Relationship Specialty Start Date End Date Shara Verdugo MD [address] [place] [address] PCP - General 05/11/20 documented as of this encounter
--- OUTSIDE RECORDS SUMMARY | 2024-08-01 15:39 | XMS_ITS | Clinical Summary ---
Author Organization [employer] [facility] Address [address] [facility] [address] [place] [address] Care Team Providers Care Court Security Officer Name Role Phone Unavailable Primary Care Provider [...]
--- OUTSIDE RECORDS SUMMARY | 2024-08-01 15:39 | XMS_ITS | Encounter Summary ---
Author Organization [facility] Address [address] [facility] [address] [facility] 200 [place] [address] Phone Care Team Providers Care Help Desk Agent Name Role Phone Shara Verdugo MD Primary Care Provider [phone] Reason for Visit * Reason Comments Med Refill Encounter Details Date Type Department Care Team (Late st Contact Info) Description 07/15/2024 Refill [facility] [address] [facility] [place] [address] Darrell Santa MD [address] [facility] 204 [place] [address] Chronic kidney disease, stage 4 [...] hypertension documented in this encounter Care Teams Help Desk Agent Relationship Specialty Start Date End Date Shara Verdugo MD [address] [place] [address] PCP - General 05/11/20 documented as of this encounter
--- OUTSIDE RECORDS SUMMARY | 2024-08-01 15:39 | XMS_ITS | Encounter Summary ---
Author Organization [facility] Address 100 [facility] 200 [place] [address] Phone Care Team Providers Care Fruit Sprayer Name Role Phone Shara Verdugo MD Primary Care Provider [phone] Reason for Visit * Reason Comments Med Refill Encounter Details Date Type Department Care Team (Late st Contact Info) Description 10/03/2023 Refill [facility] [address] [place] [address] Darrell Santa MD [address] [facility] 204 [place] [address] Social History Tobacco Use Types [...] on filedocumented in this encounter Care Teams Fruit Sprayer Relationship Specialty Start Date End Date Shara Verdugo MD [address] [place], [place] PCP - General 05/11/20 documented as of this encounter
--- OUTSIDE RECORDS SUMMARY | 2024-08-01 15:39 | XMS_ITS | Clinical Summary ---
Author Organization [facility] Address [address] [facility] [address] [place] [address] Phone Care Team Providers Care Investment Representative Name Role Phone Shara Verdugo MD Primary Care Provider [phone] Allergies Active Allergy Reactions Criticality Noted Date [...] Encounters Date Type Department Care Team Description 07/15/2024 Refill [facility] [address] [place] [address] Darrell Santa MD Chronic kidney disease, stage 4 (severe) (HCC); 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); Essential hypertension 05/26/2024 Refill [facility] [address] [place] [address] Darrell Santa MD Chronic kidney disease, stage [...] patient's age to complete this topic Insurance MEDICAID MEDICAID Care Teams Investment Representative Relationship Specialty Start Date End Date Shara Verdugo MD [address] [place], [place] PCP - General 05/11/20
== END 2024-08-01 14:55 | disposition home or self-care (01) ==
LOC: HO.HMCH 14:11
PROVIDERS: PCP Internal Medicine; Visit Provider Internal Medicine
DX: Z00.00 Encounter for general adult medical examination without abnormal findings (principal); G81.91 Hemiplegia, unspecified affecting right dominant side; I50.32 Chronic diastolic (congestive) heart failure; E11.65 Type 2 diabetes mellitus with hyperglycemia; Z79.4 Long term (current) use of insulin; I48.0 Paroxysmal atrial fibrillation; I63.512 Cerebral infarction due to unspecified occlusion or stenosis of left middle cerebral artery; N18.4 Chronic kidney disease, stage 4 (severe); R10.9 Unspecified abdominal pain

== ENCOUNTER → 2024-08-01 14:10 | Outpatient (BNVA) | payer OTHER, SELFPAY | PROVIDERS: PCP Internal Medicine; Visit Provider Internal Medicine | DX: Z00.00 Encounter for general adult medical examination without abnormal findings (principal); I50.32 Chronic diastolic (congestive) heart failure; E11.9 Type 2 diabetes mellitus without complications; G81.91 Hemiplegia, unspecified affecting right dominant side; E11.65 Type 2 diabetes mellitus with hyperglycemia; I48.0 Paroxysmal atrial fibrillation; R10.9 Unspecified abdominal pain; N18.4 Chronic kidney disease, stage 4 (severe); E55.9 Vitamin D deficiency, unspecified; R80.9 Proteinuria, unspecified; Z79.4 Long term (current) use of insulin; Z78.0 Asymptomatic menopausal state; Z86.73 Personal history of transient ischemic attack (TIA), and cerebral infarction without residual deficits | CPT/HCPCS: 83036; 96127; 99212; 99396 ==

== ENCOUNTER 2024-08-12 11:27 | Outpatient (REF) | payer OTHER, SELFPAY ==
[2024-08-12 11:48] LABS: MANUAL DIFF FLAG NO
[2024-08-12 11:59] LABS: Basophils Absolute Auto 0.1 X10*3/uL (0.0-0.2); Basophils Percent Auto 0.7 % (0-2); Eosinophils Absolute Auto 0.2 X10*3/uL (0.0-0.4); Eosinophils Percent Auto 3.1 % (0-4); Imm Gran Abs Auto 0.02 X10*3/uL (0.00-0.03); Imm Gran Pct Auto 0.3 % (0.0-0.4); Lymphocytes Absolute Auto 2.3 X10*3/uL (1.2-4.9); Lymphocytes Percent Auto 31.4 % (20-40); Mean Corpuscular HGB Conc 31.7 g/dl (31.0-35.0); Mean Corpuscular Hemoglobin 28.9 pg (27.0-33.0); Mean Corpuscular Volume 91.1 fL (80.0-98.0); Mean Platelet Volume 11.5 fL (9.4-12.3); Monocytes Absolute Auto 0.7 X10*3/uL (0.1-1.2); Monocytes Percent Auto 9.2 % (2-11); Neutrophils Absolute Auto 4.1 x10*3/uL (2.0-8.3); Neutrophils Percent Auto 55.3 % (45-73); Platelet Count 188 X10*3/uL (160-400); Red Cell Distribution Width 15.4 % (11.0-16.0); White Blood Count 7.4 X10*3/uL (4.8-10.8)
[2024-08-12 12:41] LABS: Alanine Aminotransferase 26 U/L (0-31); Albumin Level 3.6 g/dL (3.5-5.0); Alkaline Phosphatase 80 U/L (39-117); Anion Gap 12 (12-20); Aspartate Amino Transferase 30 U/L (5-31); Bilirubin Total 0.3 mg/dL (0.0-1.0); Blood Urea Nitrogen 21 mg/dL (9-16); Calcium 9.7 mg/dL (8.4-10.2); Carbon Dioxide 35 mmol/L (22-29); Chloride 99 mmol/L (96-108); Cholesterol 111 mg/dL (<200); Estimated Glomerular Filt Rate 28; Glucose Fasting 263 mg/dL (60-99); HDL Cholesterol 25 mg/dL (>40); Iron 72 mcg/dL (30-160); LDL Cholesterol Calculated 37 mg/dL (<100); Percent Iron Saturation 30 % (15-50); Sodium 142 mmol/L (135-145); Total Iron Binding Capacity 238 mcg/dL (228-428); Total Protein 7.6 g/dL (6.5-8.0); Triglycerides 246 mg/dL (<150); Unsaturated Iron Binding 166 ug/dL
[2024-08-12 12:54] LABS: Creatinine Urine 71.11 mg/dL
[2024-08-12 12:57] LABS: Vitamin D 25-OH Total 42.4 ng/mL (>30)
[2024-08-12 13:07] LABS: Microalbum/Creatinine Ratio Ur 738.2 ug/mg cr (<30)
[2024-08-12 13:10] LABS: Folate 15.4 ng/mL (> or = 4.0); Vitamin B12 671 pg/mL (200-900)
--- OUTSIDE RECORDS SUMMARY | 2024-08-12 13:31 | XMS_ITS | Encounter Summary ---
Author Organization [facility] Address 100 [facility] 200 [place] [address] Phone Care Team Providers Care Exercise Physiologist Certified Name Role Phone Shara Verdugo MD Primary Care Provider [phone] Reason for Visit * Reason Comments Med Refill Encounter Details Date Type Department Care Team (Late st Contact Info) Description 10/03/2023 Refill [facility] [address] [place] [address] Darrell Santa MD [address] [facility] 204 [place] [address] Social History Tobacco Use Types [...] on filedocumented in this encounter Care Teams Exercise Physiologist Certified Relationship Specialty Start Date End Date Shara Verdugo MD [address] [place], [place] PCP - General 05/11/20 documented as of this encounter
--- OUTSIDE RECORDS SUMMARY | 2024-08-12 13:31 | XMS_ITS | Clinical Summary ---
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); Essential hypertension 07/15/2024 Refill [facility] [address] [place] [address] Darrell Santa MD Chronic kidney disease, stage 4 (severe) (HCC); 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); Essential hypertension 05/26/2024 Refill [facility] [address] [place] [address] Darrell Santa MD Chronic kidney disease, stage 4 (severe) (HCC); 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); Essential hypertension from Last 3 Months Immunizations Immunization Administration Dates Next Due Influenza, Unspecified 03/26/2019,03/08/2018, [...] Colorectal Cancer Screening: Sigmoidoscopy 2010 Pneumococcal Vaccine: 50+ Years (3 of 3 - PCV) 04/04/2020 04/04/2019, 03/04/2016, 11/18/2013 Diabetes: Ophthalmology Exam 06/01/2020 Diabetes: Pedal Pulse Checked 06/01/2020 Diabetes: Sensory Foot Exam 06/01/2020 Diabetes: Visual Foot Exam 06/01/2020 Diabetes: Hemoglobin A1C 07/18/2024 024, 02/16/2022, 10/29/2021, Additional history exists Influenza Vaccine (Season Ended) 2024 03/26/2019, 03/08/2018, 02/24/2016 Pneumococcal Vaccine: Peds (0 to 5 Years) and At-Risk Patients (6 to 49 Years) Discontinued 04/04/2019, 03/04/2016, 11/18/2013 Hepatitis B Vaccine Aged Out No longe r eligible based on patient's age to complete this topic Insurance Medicaid Medicaid Care Teams Attendant Campground Relationship Specialty Start Date End Date Shara Verdugo MD [address] [place] [address] [facility] - General 05/11/20
--- OUTSIDE RECORDS SUMMARY | 2024-08-12 13:31 | XMS_ITS | Encounter Summary ---
Author Organization [facility] Address 100 [facility] 200 [place] [address] Phone Care Team Providers Care Bobj Developer Name Role Phone Shara Verdugo MD Primary Care Provider [phone] Encounter Details Date Type Department Care Team (Late st Contact Info) Description 03/14/2022 Telephone [facility] [address] [facility] 200 [place] [address] Shara Verdugo MD [address] [place] [address] Social History Tobacco Use Types Packs/Day Years [...] faxed over once complete. Please send to [facility] . Thank you documented in this encounter Plan of Treatment Not on file documented as of this encounter Visit Diagnoses Not on filedocumented in this encounter Care Teams Bobj Developer Relationship Specialty Start Date End Date Shara Verdugo MD [address] [place] [address] PCP - General 05/11/20 documented as of this encounter
--- OUTSIDE RECORDS SUMMARY | 2024-08-12 13:31 | XMS_ITS | Encounter Summary ---
Author Organization [facility] Address [address] [facility] [address] [facility] 200 [place] [address] Phone Care Team Providers Care Director Technical Name Role Phone Shara Verdugo MD Primary Care Provider [phone] Reason for Visit * Reason Comments Med Refill Encounter Details Date Type Department Care Team (Late st Contact Info) Description 08/07/2024 Refill [facility] [address] [place] [address] Darrell Santa MD [address] [facility] 204 [place] [address] Chronic kidney disease, stage 4 [...] hypertension documented in this encounter Care Teams Director Technical Relationship Specialty Start Date End Date Shara Verdugo MD [address] [facility] [address] [place] [address] PCP - General 05/11/20 documented as of this encounter
--- OUTSIDE RECORDS SUMMARY | 2024-08-12 13:31 | XMS_ITS | Encounter Summary ---
Author Organization [facility] Address [address] [facility] 200 [place] [address] Phone Care Team Providers Care Mercerizer Machine Operator Name Role Phone Shara Verdugo MD Primary Care Provider [phone] Reason for Visit * Reason Comments Med Refill Encounter Details Date Type Department Care Team (Late st Contact Info) Description 07/15/2024 Refill [facility] [address] [place] [address] Darrell Santa MD [address] [facility] [address] [place] [address] Chronic kidney disease, stage 4 [...] hypertension documented in this encounter Care Teams Mercerizer Machine Operator Relationship Specialty Start Date End Date Shara Verdugo MD [address] [facility] [address] [place] [address] PCP - General 05/11/20 documented as of this encounter
--- OUTSIDE RECORDS SUMMARY | 2024-08-12 13:31 | XMS_ITS | Clinical Summary ---
Author Organization [employer] [facility] Address [address] [facility] 7[address] [place] [address] Care Team Providers Care Hse Coordinator Name Role Phone Unavailable Primary Care Provider [...]
--- OUTSIDE RECORDS SUMMARY | 2024-08-12 13:31 | XMS_ITS | Encounter Summary ---
Author Organization [employer] [facility] Address [address] [facility] [address] 7[address] [place] [address] Care Team Providers Care Health Technician Hearing Name Role Phone Unavailable Primary Care Provider [...]
--- OUTSIDE RECORDS SUMMARY | 2024-08-12 13:31 | XMS_ITS | Encounter Summary ---
Author Organization [facility] Address [address] [facility] [address] [facility] 200 [place] [address] Phone Care Team Providers Care Water Resource Manager Name Role Phone Shara Verdugo MD Primary Care Provider [phone] Reason for Visit * Reason Comments Med Refill Encounter Details Date Type Department Care Team (Late st Contact Info) Description 10/16/2023 Refill [facility] [address] [facility] [address] [place] [address] Darrell Santa MD [address] [facility] 204 [place] [address] Chronic kidney disease, stage 4 [...] hypertension documented in this encounter Care Teams Water Resource Manager Relationship Specialty Start Date End Date Shara Verdugo MD [address] [facility] [address] [place] [address] PCP - General 05/11/20 documented as of this encounter
--- OUTSIDE RECORDS SUMMARY | 2024-08-12 13:32 | XMS_ITS | Encounter Summary ---
Author Organization [facility] Address 100 [facility] 200 [place] [address] Phone Care Team Providers Care Backside Grinder Name Role Phone Shara Verdugo MD Primary Care Provider [phone] Encounter Details Date Type Department Care Team (Late st Contact Info) Description 10/03/2023 Office Communication [facility] [address] [facility] 200 [place] [address] Darrell Santa MD [address] [facility] 204 [place] [address] Social History Tobacco Use Types [...] on filedocumented in this encounter Care Teams Backside Grinder Relationship Specialty Start Date End Date Shara Verdugo MD [address] [facility] [address] [place], [place] PCP - General 05/11/20 documented as of this encounter
--- OUTSIDE RECORDS SUMMARY | 2024-08-12 13:32 | XMS_ITS | Patient Health Record ---
Author Organization [facility] Address [address] [place] [address] Care Team Providers Care Jail Officer Name Role Phone Shara Verdugo Primary Care Provider Unavailab Royce Goldstein Unavailable [phone] José Heath Unavailable Unavailable Reason For Referral No Information Medications Medication SIG (Take, Route, Frequency, Duration) Notes Start Date End Date Status Gabapentin 300mg Act federico amLODIPine Besylate 10mg Active Atorvastatin Calcium 80mg Active traMADol HCl 50mg Ac tive Furosemide 40mg Acti ve Victoza 18 MG/3ML INJECT 1.2 MG DAILY Subcutaneous for 30 Active Omeprazole 20 MG 1 capsule Orally Onc e a day for 30 Active Lantus 100units Acti ve Amoxicillin-Pot Clavulanate 875-125mg Active Methocarbamol 500mg Active Acetaminophen 500mg Active Atrovent HFA Active prednisoLONE Acetate 1% Active Vitamin C 500mg Acti ve Aspir-81 81mg Active Ferrous Sulfate 325mg Active Nitrostat 0.4mg Acti ve Cilostazol 50mg Acti ve Isosorbide Mononitrate 30mg Active Lisinopril 40mg Acti ve HumaLOG 100units Act federico Clopidogrel Bisulfate 75mg Active Metoprolol Tartrate 50mg Active metFORMIN HCl ER 1000mg Active Problems Problem Type SNOMED Code ICD Code Onset Dates Problem Status W/U Status Risk Notes Problem Gastroesophageal reflux disease (987152227) GERD (gastroesophag eal reflux disease) (530.81) Active confirmed Problem Iron deficiency anemia (02679097) Anemia, iron deficiency (280.9) Active confirmed Problem History of adenomatous polyp of colon (040744127) History of adenomatous polyp of colon (V12.72) Active confirmed Plan Of Treatment Future Test Test Name Order Date UPPER GI ENDOSCOPY 04/25/2013 COLONOSCOPY 04/25/2013 Next Appt Details Provider Name:Royce Cunningham , 11/13/2024 03:40:00 PM, [address] [facility] [address], [address], [place], [address], Insurance Providers Payer Name Payer Address Payer Phone Subscriber Number Group Number Insured Name Patient Relationship to Insured Coverage Start Date Coverage End Date [facility] [address] [address] [place], [place] [id number] RENETTA GODINEZ Self - patient is the insured Medical (General) History Medical History History ICD Code 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
--- OUTSIDE RECORDS SUMMARY | 2024-08-12 13:32 | XMS_ITS | Encounter Summary ---
Author Organization [facility] Address [address] [facility] 200 [place] [address] Phone Care Team Providers Care Automotive Glass Technician Name Role Phone Shara Verdugo MD Primary Care Provider [phone] Reason for Visit * Reason Comments Med Refill Encounter Details Date Type Department Care Team (Late st Contact Info) Description 05/26/2024 Refill [facility] [address] [facility] [address] [place] [address] Darrell Santa MD [address] [facility] 204 [place] [address] Chronic kidney disease, stage 4 [...] hypertension documented in this encounter Care Teams Automotive Glass Technician Relationship Specialty Start Date End Date Shara Verdugo MD [address] [facility] [place] [address] PCP - General 05/11/20 documented as of this encounter
[2024-08-13 07:49] LABS: NT-proBNP 535 pg/mL (<125)
== END 2024-08-12 11:28 | disposition home or self-care (01) ==
LOC: HO.LAB 11:27
PROVIDERS: PCP Internal Medicine; Visit Provider Internal Medicine Hypertension Specialist
DX: N18.30 Chronic kidney disease, stage 3 unspecified (principal); D64.9 Anemia, unspecified; E78.5 Hyperlipidemia, unspecified; E55.9 Vitamin D deficiency, unspecified; I50.32 Chronic diastolic (congestive) heart failure; R80.9 Proteinuria, unspecified; E53.8 Deficiency of other specified B group vitamins
CPT/HCPCS: 36415; 80053; 80061; 82043; 82306; 82570; 82607; 82746; 83540; 83880; 85025

== ENCOUNTER 2024-08-13 11:36 | Outpatient (AMB) | payer OTHER, SELFPAY ==
[2024-08-13 11:36] VITALS: BP 138/66; PULSE 67; O2SAT 93; BMI 40.6
--- NOTE | 2024-08-13 11:36 | HO.NEPHOV ---
Vital Signs 08/13/24 11:36 Height 5 ft 2 in Weight 222 lb 4 oz BMI 40.6 BP 138/66 Blood Pressure Location Rt brachial Position Sitting Pulse 67 Pulse Source Pulse Oximeter Pulse Oximetry (%) 93 Oxygen Delivery Method Room Air Intake Visit Reasons: CKD/ Conf Accompanied by: Daughter Allergies lactose Allergy (Intermediate, Verified 08/13/24 11:38) Vomiting amlodipine Allergy (Mild, Verified 08/13/24 11:38) leg edema liraglutide [From VICTOZA] Allergy (Mild, Verified 08/13/24 11:38) VOMITING RUBI Medication List - Last Reconciled 08/13/24 by Petar Stevens MD albuterol sulfate 90 mcg/actuation 2 puffs inhalation Q6H PRN 30 days alprazolam (Xanax) 0.5 mg PO BEDTIME PRN 5 days amitriptyline 25 mg PO BEDTIME 90 days amlodipine 5 mg PO DAILY 90 days apixaban (Eliquis) 5 mg PO BID 90 days ascorbic acid (vitamin C) (Vitamin C With Allie Hips) 500 mg PO DAILY 90 days blood sugar diagnostic As directed cholecalciferol (vitamin D3) 50 mcg PO DAILY 90 days clopidogrel (Plavix) 75 mg PO DAILY commode As directed dapagliflozin propanediol (Farxiga) 10 mg PO DAILY furosemide 40 mg PO BID gabapentin 300 mg PO BID 30 days hydralazine 25 mg PO BID 90 days insulin regular hum U-500 conc 0 - 450 units subcut DAILY PRN lactulose 10 grams (15 mL) PO BEDTIME PRN 30 days metoprolol tartrate 50 mg (2 x 25 mg) PO BID 90 days nitroglycerin mg sublingual pantoprazole 40 mg PO DAILY 90 days potassium chloride ER 20 mEq PO DAILY [pulse oximeter As directed] rosuvastatin 40 mg PO DAILY 90 days sennosides (Senna Laxative) 17.2 mg (2 x 8.6 mg) PO BEDTIME PRN 30 days Shower Chair As directed walker with seat and wheels HPI Comments Details: 62-year-old woman with a history of longstanding hypertension diabetes mellitus and obesity with CKD. She was accompanied by her daughter.Denies any new complaints. No urinary symptoms. She recently had an episode of gout and she completed a short course of colchicine. 09/05/23 Accompanied by daughter Still has edema No dyspnea K was 2.6 on 4/21/24 !! 10/17/23:Doing better lost few pounds; K was 3.3 01/11/24 ;Doing well ;No dyspnea;Cr stable 05/13/24;c/o Chest pain x 2 days ;Dyspnea on exertion- with walking; No cough; No sweating PFSH Medical History Congestive heart failure Acute kidney injury superimposed on chronic kidney disease Diabetic foot ulcer Cataract (lens) fragments in eye following cataract surgery, right eye Cataract (lens) fragments in eye following cataract surgery, left eye Acute on chronic renal failure CHF exacerbation Afib Restrictive lung disease CKD (chronic kidney disease) stage 4, GFR 15-29 ml/min Right hemiparesis Cerebrovascular accident (CVA) due to occlusion of left middle cerebral artery Skin lesion Lumbar degenerative disc disease CKD (chronic kidney disease) BRYNN (obstructive sleep apnea) Arthritis Hypercholesteremia CAD (coronary artery disease) Sinusitis Stroke Asthma Hypertension Diabetes Surgical History History of esophagogastroduodenoscopy (EGD) H/O colonoscopy History of bilateral tubal ligation History of heart surgery History of coronary angioplasty with insertion of stent History of cataract surgery H/O right breast biopsy Family History Father Stroke Mother Myocardial infarction Paternal Uncle Cancer Family/Other Breast cancer Social History Household Members: Family Housing: House Are you a primary respite care provider to a significant other at home: No Alcohol intake: never Comment: family at bedside Patient Tobacco Use Status: Never used Tobacco e-Cigarette/Vaping Use: Never Used Second Hand Smoke Exposure: No Advance Directives Date on File: 01/25/22 service: No Current occupational status: unemployed and disabled Sexual orientation: Straight/Heterosexual Gender identity: Female Cognitive needs: Yes Hearing needs: No Vision needs: No Female Reproductive History Menstrual Age of Menarche: 14 Physical Exam Vital Signs: Last Vital Signs Pulse 67 08/13/24 11:36 BP 138/66 08/13/24 11:36 Pulse Ox 93 08/13/24 11:36 Oxygen Delivery Method Room Air 08/13/24 11:36 BMI result Body Mass Index 40.6 Comfortable Neck supple no JVD. Lungs entry equal no rales. Heart S1-S2 heard no gallop or rub. Abdomen soft nontender. Neuro alert awake oriented. No asterixis. Extremities no edema. Results Reviewed Nephrology Results: Hgb 13.0 g/dl (12.0-16.0) 08/12/24 WBC 7.4 X10*3/uL (4.8-10.8) 08/12/24 Plt Count 188 X10*3/uL (160-400) 08/12/24 Sodium 142 mmol/L (135-145) 08/12/24 Potassium 4.0 mmol/L (3.3-5.1) 08/12/24 Chloride 99 mmol/L (96-108) 08/12/24 Carbon Dioxide 35 mmol/L (22-29) H 08/12/24 BUN 21 mg/dL (9-16) H 08/12/24 Creatinine 1.81 mg/dL (0.5-1.4) H 08/12/24 Calcium 9.7 mg/dL (8.4-10.2) 08/12/24 Urine Creatinine 71.11 mg/dL 08/12/24 Assessment & Plan Assessment & Plan (1) CKD (chronic kidney disease) stage 4, GFR 15-29 ml/min: Code(s): N18.4 - Chronic kidney disease, stage 4 (severe) Category: Medical (2) Anemia: Code(s): D64.9 - Anemia, unspecified Category: Medical (3) Type 2 diabetes mellitus, with long-term current use of insulin: Code(s): E11.9 - Type 2 diabetes mellitus without complications; Z79.4 - detention (current) use of insulin Category: Medical Qualifiers: Diabetes mellitus complication status: with hyperglycemia Qualified Code(s): E11.65 - Type 2 diabetes mellitus with hyperglycemia; Z79.4 - detention (current) use of insulin Plan: . Goal A1c less than 7% She follows with Endocrinology Dr. Shirley (4) CKD (chronic kidney disease) stage 3, GFR 30-59 ml/min: Code(s): N18.30 - Chronic kidney disease, stage 3 unspecified Category: Medical Qualifiers: Chronic kidney disease stage 3 subtype: stage 3b (GFR 30-44) Qualified Code(s): N18.32 - Chronic kidney disease, stage 3b Plan: Chronic kidney disease in the setting of longstanding hypertension obesity and diabetes mellitus. Renal function : creatinine increased from 1.8 mg/dL. to 2.2 Goal is to slow the progression of disease. Continue to avoid nephrotoxic agents. We discussed importance of tight control of blood pressure and blood sugar. She will benefit from weight loss as well. Continue Farxiga for renal protection (5) Essential hypertension: Code(s): I10 - Essential (primary) hypertension Category: Medical Plan . Hypokalemia on KCL 40 meq REcent K is 4.0 Orders: Orders Basic Metabolic Panel 4 Months N18.32 - Chronic kidney disease, stage 3b Coding Level of Care Code Est Pt Level 4 (17095) Diagnoses CKD (chronic kidney disease) stage 4, GFR 15-29 ml/min N18.4 Anemia D64.9 Type 2 diabetes mellitus with hyperglycemia, with long-term current use of insulin E11.65; Z79.4 Diabetes mellitus complication status: with hyperglycemia Stage 3b chronic kidney disease N18.32 Chronic kidney disease stage 3 subtype: stage 3b (GFR 30-44) Essential hypertension I10
--- OUTSIDE RECORDS SUMMARY | 2024-08-13 14:21 | XMS_ITS | Clinical Summary ---
Author Organization [facility] Address [address] [facility] 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 [facility] [address] [place] [address] [facility] - General 05/11/20
--- OUTSIDE RECORDS SUMMARY | 2024-08-13 14:21 | XMS_ITS | Clinical Summary ---
Author Organization [facility] on [facility] Address [address] [facility] 7t [place] [address] Care Team Providers Care Air Traffic Control Specialist Center Name Role Phone Unavailable Primary Care Provider [...]
--- OUTSIDE RECORDS SUMMARY | 2024-08-13 14:21 | XMS_ITS | Encounter Summary ---
Author Organization [facility] Address [address] [facility] [address] [facility] 200 [place] [address] Phone Care Team Providers Care Spragger Name Role Phone Shara Verdugo MD Primary Care Provider [phone] Reason for Visit * Reason Comments Med Refill Encounter Details Date Type Department Care Team (Late st Contact Info) Description 10/16/2023 Refill [facility] [address] [facility] [address] [place] [address] Darrell Santa MD 355[address] [facility] 204 [place] [address] Chronic kidney disease, stage 4 [...] hypertension documented in this encounter Care Teams Spragger Relationship Specialty Start Date End Date Shara Verdugo MD [address] [facility] [address] [facility] [address] [place] [address] PCP - General 05/11/20 documented as of this encounter
--- OUTSIDE RECORDS SUMMARY | 2024-08-13 14:21 | XMS_ITS | Encounter Summary ---
Author Organization [facility] Address [address] [facility] [address] 200 [place] [address] Phone Care Team Providers Care Disbursement Clerk Name Role Phone Shara Verdugo MD Primary Care Provider [phone] Reason for Visit * Reason Comments Med Refill Encounter Details Date Type Department Care Team (Late st Contact Info) Description 07/15/2024 Refill [facility] [address] [facility] [address] [place] [address] Darrell Santa MD [address] [facility] 204 [place] [address] Chronic kidney disease, stage 4 [...] hypertension documented in this encounter Care Teams Disbursement Clerk Relationship Specialty Start Date End Date Shara Verdugo MD [address] [place] [address] PCP - General 05/11/20 documented as of this encounter
--- OUTSIDE RECORDS SUMMARY | 2024-08-13 14:21 | XMS_ITS | Encounter Summary ---
Author Organization [facility] Address 100 [facility] 200 [place] [address] Phone Care Team Providers Care Box Hinge And Lock Attacher Name Role Phone Shara Verdugo MD Primary Care Provider [phone] Encounter Details Date Type Department Care Team (Late st Contact Info) Description 10/03/2023 Office Communication [facility] 100 [facility] 200 [place] [address] Darrell Santa MD [address] [facility] 204 [place] [address] Social History Tobacco Use Types [...] on filedocumented in this encounter Care Teams Box Hinge And Lock Attacher Relationship Specialty Start Date End Date Shara Verdugo MD [address] [place], [place] PCP - General 05/11/20 documented as of this encounter
--- OUTSIDE RECORDS SUMMARY | 2024-08-13 14:21 | XMS_ITS | Encounter Summary ---
Author Organization [facility] Address [address] [facility] [address] [facility] 200 [place] [address] Phone Care Team Providers Care Industrial Rehabilitation Consultant Name Role Phone Shara Verdugo MD Primary Care Provider [phone] Reason for Visit * Reason Comments Med Refill Encounter Details Date Type Department Care Team (Late st Contact Info) Description 05/26/2024 Refill [facility] [address] [place] [address] Darrell Santa MD [address] [facility] 204 [place] [address] Chronic kidney disease, stage 4 [...] hypertension documented in this encounter Care Teams Industrial Rehabilitation Consultant Relationship Specialty Start Date End Date Shara Verdugo MD [address] [facility] [address] [place] [address] PCP - General 05/11/20 documented as of this encounter
--- OUTSIDE RECORDS SUMMARY | 2024-08-13 14:21 | XMS_ITS | Patient Health Record ---
Author Organization [facility] Address [address] [place] [address] Care Team Providers Care Security Escort Name Role Phone Shara Verdugo Primary Care Provider Unavailab Royce Goldstein Unavailable [phone] José Heath Unavailable Unavailable Reason For Referral [...] Status Risk Notes Problem Gastroesophageal reflux disease (004164284) GERD (gastroesophag eal reflux disease) (530.81) Active confirmed Problem Iron deficiency anemia (97656086) Anemia, iron deficiency (280.9) Active confirmed Problem History of adenomatous polyp of colon (559161968) History of adenomatous polyp of colon (V12.72) Active confirmed Plan Of Treatment Future Test Test Name Order Date UPPER GI ENDOSCOPY 04/25/2013 COLONOSCOPY 04/25/2013 Next Appt Details Provider Name:Royce Cunningham , 11/13/2024 03:40:00 PM, [address], [address], [place], [address], Insurance Providers Payer Name Payer Address Payer Phone Subscriber Number Group Number Insured Name Patient Relationship to Insured Coverage Start Date Coverage End Date [facility] [address] [address] [place], [place] [id number] RENETTA GODINEZ Self - patient is the insured Medical (General) History Medical History History ICD Code 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
--- OUTSIDE RECORDS SUMMARY | 2024-08-13 14:21 | XMS_ITS | Encounter Summary ---
Author Organization [employer] [facility] Address [address] [facility] [address] 7t [place] [address] Care Team Providers Care Passport Support Manager Name Role Phone Unavailable Primary Care [...]
--- OUTSIDE RECORDS SUMMARY | 2024-08-13 14:21 | XMS_ITS | Encounter Summary ---
Author Organization [facility] Address 100 [facility] 200 [place] [address] Phone Care Team Providers Care Review Manager Name Role Phone Shara Verdugo MD Primary Care Provider [phone] Reason for Visit * Reason Comments Med Refill Encounter Details Date Type Department Care Team (Late st Contact Info) Description 10/03/2023 Refill [facility] [address] [place] [address] Darrell Santa MD [address] [facility] 204 [place] [address] Social History Tobacco Use Types [...] on filedocumented in this encounter Care Teams Review Manager Relationship Specialty Start Date End Date Shara Verdugo MD [address] [place], [place] PCP - General 05/11/20 documented as of this encounter
--- OUTSIDE RECORDS SUMMARY | 2024-08-13 14:21 | XMS_ITS | Encounter Summary ---
Author Organization [facility] Address 100 [facility] 200 [place] [address] Phone Care Team Providers Care Quahogger Name Role Phone Shara Verdugo MD Primary Care Provider Encounter Details Date Type Department Care Team (Late st Contact Info) Description 03/14/2022 Telephone [facility] 100 [facility] 200 [place] [address] Shara Verdugo MD [address] [place] [address] Social History Tobacco Use Types Packs/Day Years [...] faxed over once complete. Please send to [facility] . Thank you documented in this encounter Plan of Treatment Not on file documented as of this encounter Visit Diagnoses Not on filedocumented in this encounter Care Teams Quahogger Relationship Specialty Start Date End Date Shara Verdugo MD [address] [place] [address] PCP - General 05/11/20 documented as of this encounter
--- OUTSIDE RECORDS SUMMARY | 2024-08-13 14:21 | XMS_ITS | Encounter Summary ---
Author Organization [facility] Address [address] [facility] [address] [facility] 200 [place] [address] Phone Care Team Providers Care Cisco Certified Network Professional Name Role Phone Shara Verdugo MD Primary Care Provider [phone] Reason for Visit * Reason Comments Med Refill Encounter Details Date Type Department Care Team (Late st Contact Info) Description 08/07/2024 Refill [facility] [address] [place] [address] Darrell Santa MD 3551 [facility] 204 [place] [address] Chronic kidney disease, stage 4 [...] hypertension documented in this encounter Care Teams Cisco Certified Network Professional Relationship Specialty Start Date End Date Shara Verdugo MD [address] [facility] [address] [place] [address] PCP - General 05/11/20 documented as of this encounter
== END 2024-08-13 11:50 | disposition home or self-care (01) ==
LOC: HO.HKA 11:36
PROVIDERS: PCP Internal Medicine; Visit Provider Internal Medicine Hypertension Specialist
DX: I12.9 Hypertensive chronic kidney disease with stage 1 through stage 4 chronic kidney disease, or unspecified chronic kidney disease (principal); E11.22 Type 2 diabetes mellitus with diabetic chronic kidney disease; N18.4 Chronic kidney disease, stage 4 (severe); D63.1 Anemia in chronic kidney disease; Z79.4 Long term (current) use of insulin
CPT/HCPCS: 99214

== ENCOUNTER → 2024-08-13 11:36 | Outpatient (BNVA) | payer OTHER, SELFPAY | PROVIDERS: PCP Internal Medicine; Visit Provider Internal Medicine Hypertension Specialist | DX: I12.9 Hypertensive chronic kidney disease with stage 1 through stage 4 chronic kidney disease, or unspecified chronic kidney disease (principal); E11.22 Type 2 diabetes mellitus with diabetic chronic kidney disease; E11.65 Type 2 diabetes mellitus with hyperglycemia; E66.9 Obesity, unspecified; D63.1 Anemia in chronic kidney disease; N18.32 Chronic kidney disease, stage 3b; Z68.41 Body mass index [BMI] 40.0-44.9, adult | CPT/HCPCS: 99212 ==

== ENCOUNTER → 2024-08-21 12:37 | Outpatient (REF) | payer OTHER, SELFPAY ==
--- NOTE | 2024-08-21 12:39 | CA_ITS ---
Transthoracic Echocardiogram Patient (Last, First, Middle): Anna Mead L Gender: Female Date of : 1960 Age: 64 Procedure Date: 08/21/2024 Procedure Type: Transthoracic Echocardiogram Location: OP Height: 157.48 cm Weight: 99.79 kg BSA: 1.99 m2 Heart Rate: bpm BP: 130 / 75 mmHg Soap Boiler: LAUREANO Referring MD: Mayra Schuler ASSISTANT CREDIT MANAGERMaryC Symptoms: I44.7 - Left bundle-branch block, unspecified Study Quality: Adequate ECG Rhythm: Sinus Conclusions: - The left ventricular systolic function is normal. The visually estimated ejection fraction is between 55-60%. - The basal inferior and basal inferoseptal segments are akinetic. - No obvious valvular pathology seen on this study. Findings Left Ventricle Normal left ventricular cavity size. There is mildly increased left ventricular wall thickness. The left ventricular systolic function is normal. The visually estimated ejection fraction is between 55-60%. Evidence suggests grade II (moderate) diastolic dysfunction. Wall Motion Rest Echo Findings The basal inferior and basal inferoseptal segments are akinetic. Right Ventricle Normal right ventricular cavity size. There is mildly decreased right ventricular systolic function. Atria Mild biatrial enlargement. Aortic Valve The aortic valve was not well visualized. There is a normal trileaflet aortic valve. There is no aortic valve regurgitation. Mitral Valve The mitral valve appears normal. There is trace mitral valve regurgitation. There is no mitral valve stenosis. Pulmonic Valve The pulmonic valve is likely normal. Tricuspid Valve There is trace tricuspid valve regurgitation. There is no evidence of pulmonary hypertension. Great Vessels The asc aorta is normal in size. Venous The inferior vena cava is normal in size and collapses less than 50% with inspiration. Pericardium/Pleural There is no evidence of pericardial effusion. Prior Study Comparison No significant change compared to prior study dated: 09/26/2023. Recommendations, Care & Conclusions No obvious valvular pathology seen on this study. Measurements 2D Linear Measurements IVSd: 1.26 0.6-0.9/0.6-1.0 cm LVIDd: 4.23 3.9-5.3/4.2-5.9 cm LVIDd Index: 2.13 2.4-3.2/2.2-3.1 cm/m2 LVIDs: 3.41 2.0-3.6 cm LVPWd: 1.25 0.7-1.1 cm Ao Root: 3.00 2.1-3.5 cm LA Diam: 4.50 2.7-3.8/3.0-4.0 cm LAIDs Index: 2.26 1.5-2.3 cm/m2 LV Mass: 239.71 67-162/88-224 g LV Mass Index: 120.46 43-95/49-115 g/m2 LVOT Diam: 2.10 3.0+(-)1.3 cm 2D Systolic Function EF 4C: 51.70 >55% EF 2C: 51.50 >55% EF BiP: 51.10 >55% Mitral Valve MV VTI: 0.43 MV Pk Zen: 1.26 MV Mn Zen: 0.67 MV Pk Grad: 6.00 MV Mn Grad: 2.00 MV Pk E: 1.32 MV PK A: 0.61 MV Decel Time: 171.00 E/A: 2.20 E'Lateral: 5.44 E'Medial: 3.70 E/E' Med: 35.70 E/E' Lat: 24.30 PHT: 50.00 MVA PHT: 4.40 MVA Continuity: 1.40 Decel [place]: 7.76 Aortic Valve AoV Pk Zen: 1.50 AoV Mn Zen: 1.02 AoV VTI: 0.40 AoV Pk Grad: 9.00 Aov Mn Grad: 5.00 MANDEEP Cont.VTI: 1.48 LVOT LVOT Pk Zen: 0.68 LVOT Mn Zen: 0.48 LVOT VTI: 0.17 LVOT Pk Grad: 2.00 LVOT Mn Grad: 1.00 LVOT Diam: 2.10 LVOT Area: 3.46 Diastolic Function MV Pk E: 1.32 MV Pk A: 0.61 E/A: 2.20 E'Medial: 3.70 E/E' Med: 35.70 E' Laterial: 5.44 E/E' Lat: 24.30 Right Ventricle TAPSE (mm): 15.00 Tricuspid Valve TR Pk Zen: 2.58 TR Pk Grad: 27.00 RA Press: 3.00 RVSP: 30.00 Great Vessels Aorta Ao Root-2D: 3.00 2.0-3.7 cm Ao Asc: 3.20 2.1-3.4 cm Pulmonary Valve PV Pk Zen: 0.93 Peak PV Grad: 3.00 Updated in Other Vendor System with Status of Final Vishnu Torres MD electronically signed on 08/22/2024 10:16:44 AM with status of Final
--- OUTSIDE RECORDS SUMMARY | 2024-08-21 14:54 | XMS_ITS | Clinical Summary ---
Author Organization [employer] [facility] Address [address] [facility] 7t [place] [address] Care Team Providers Care Planer Chain Offbearer Name Role Phone Unavailable Primary Care Provider [...]
--- OUTSIDE RECORDS SUMMARY | 2024-08-21 14:54 | XMS_ITS | Encounter Summary ---
Author Organization [facility] Address [address] [facility] [address] 7t [place] [address] Care Team Providers Care Hoop Riveting Machine Operator Helper Name Role Phone Unavailable Primary Care Provider [...]
--- OUTSIDE RECORDS SUMMARY | 2024-08-21 14:55 | XMS_ITS | Encounter Summary ---
Author Organization [facility] Address [address] [facility] [address] [facility] 200 [place] [address] Phone Care Team Providers Care Diamond Sorter Name Role Phone Shara Verdugo MD Primary Care Provider [phone] Reason for Visit * Reason Comments Med Refill Encounter Details Date Type Department Care Team (Late st Contact Info) Description 08/07/2024 Refill [facility] [address] [place] [address] Darrell Santa MD [address] [facility] 204 [place] [address] Chronic kidney disease, stage 4 [...] hypertension documented in this encounter Care Teams Diamond Sorter Relationship Specialty Start Date End Date Shara Verdugo MD [address] [place] [address] PCP - General 05/11/20 documented as of this encounter
--- OUTSIDE RECORDS SUMMARY | 2024-08-21 14:55 | XMS_ITS | Encounter Summary ---
Author Organization [facility] Address 100 [facility] 200 [place] [address] Phone Care Team Providers Care Working Second Hand Name Role Phone Shara Verdugo MD Primary Care Provider [phone] Reason for Visit * Reason Comments Med Refill Encounter Details Date Type Department Care Team (Late st Contact Info) Description 10/03/2023 Refill [facility] [address] [place] [address] Darrell Santa MD [address] [facility] [address] [place] [address] Social History Tobacco Use Types [...] on filedocumented in this encounter Care Teams Working Second Hand Relationship Specialty Start Date End Date Shara Verdugo MD [address] [place], [place] PCP - General 05/11/20 documented as of this encounter
--- OUTSIDE RECORDS SUMMARY | 2024-08-21 14:55 | XMS_ITS | Patient Health Record ---
Author Organization [facility] Address [address] [place] [address] Care Team Providers Care Manager Enterprise Content Management Name Role Phone Shara Verdugo Primary Care Provider Unavailab Royce Goldstein Unavailable [phone] José Heath Unavailable Unavailable Reason For Referral [...] Status Risk Notes Problem Gastroesophageal reflux disease (336505549) GERD (gastroesophag eal reflux disease) (530.81) Active confirmed Problem Iron deficiency anemia (89284251) Anemia, iron deficiency (280.9) Active confirmed Problem History of adenomatous polyp of colon (237091023) History of adenomatous polyp of colon (V12.72) Active confirmed Plan Of Treatment Future Test Test Name Order Date UPPER GI ENDOSCOPY 04/25/2013 COLONOSCOPY 04/25/2013 Next Appt Details Provider Name:Royce Cunningham , 11/13/2024 03:40:00 PM, [address], [address], [place], [address], Insurance Providers Payer Name Payer Address Payer Phone Subscriber Number Group Number Insured Name Patient Relationship to Insured Coverage Start Date Coverage End Date [facility] [address] [address] [place], [place] [id number] RENETTA GODINEZ Self - patient is the insured Medical (General) History Medical History History ICD Code 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
--- OUTSIDE RECORDS SUMMARY | 2024-08-21 14:55 | XMS_ITS | Encounter Summary ---
Author Organization [facility] Address [address] [facility] [facility] 200 [place] [address] Phone Care Team Providers Care Cash Clerk Name Role Phone Shara Verdugo MD Primary Care Provider [phone] Reason for Visit * Reason Comments Med Refill Encounter Details Date Type Department Care Team (Late st Contact Info) Description 07/15/2024 Refill [facility] [address] [place] [address] Darrell Santa MD 355[address] [facility] 204 [place] [address] Chronic kidney disease, stage 4 [...] hypertension documented in this encounter Care Teams Cash Clerk Relationship Specialty Start Date End Date Shara Verdugo MD [address] [place] [address] PCP - General 05/11/20 documented as of this encounter
--- OUTSIDE RECORDS SUMMARY | 2024-08-21 14:55 | XMS_ITS | Encounter Summary ---
Author Organization [facility] Address [address] [facility] [address] 200 [place] [address] Phone Care Team Providers Care Insert Operator Name Role Phone Shara Verdugo MD Primary Care Provider [phone] Reason for Visit * Reason Comments Med Refill Encounter Details Date Type Department Care Team (Late st Contact Info) Description 10/16/2023 Refill [facility] [address] [facility] [address] [address] [place] [address] Darrell Santa MD 3555 [facility] 204 [place] [address] Chronic kidney disease, stage 4 [...] hypertension documented in this encounter Care Teams Insert Operator Relationship Specialty Start Date End Date Shara Verdugo MD [address] [place] [address] PCP - General 05/11/20 documented as of this encounter
--- OUTSIDE RECORDS SUMMARY | 2024-08-21 14:55 | XMS_ITS | Encounter Summary ---
Author Organization [facility] Address [address] [facility] 200 [place] [address] Phone Care Team Providers Care Export Specialist Name Role Phone Shara Verdugo MD Primary Care Provider [phone] Reason for Visit * Reason Comments Med Refill Encounter Details Date Type Department Care Team (Late st Contact Info) Description 05/26/2024 Refill [facility] [address] [place] [address] Darrell Santa MD [address] [facility] 204 [place] [address] Chronic kidney disease, stage 4 [...] hypertension documented in this encounter Care Teams Export Specialist Relationship Specialty Start Date End Date Shara Verdugo MD [address] [place] [address] PCP - General 05/11/20 documented as of this encounter
--- OUTSIDE RECORDS SUMMARY | 2024-08-21 14:55 | XMS_ITS | Encounter Summary ---
Author Organization [facility] Address 100 [facility] 200 [place] [address] Phone Care Team Providers Care Digital Sales Representative Name Role Phone Shara Verdugo MD Primary Care Provider [phone] Encounter Details Date Type Department Care Team (Late st Contact Info) Description 03/14/2022 Telephone [facility] 100 [facility] 200 [place] [address] Shara Verdugo MD [address] [place] [address] Social History Tobacco Use Types Packs/Day Years [...] faxed over once complete. Please send to [facility] . Thank you documented in this encounter Plan of Treatment Not on file documented as of this encounter Visit Diagnoses Not on filedocumented in this encounter Care Teams Digital Sales Representative Relationship Specialty Start Date End Date Shara Verdugo MD [address] [place] [address] PCP - General 05/11/20 documented as of this encounter
--- OUTSIDE RECORDS SUMMARY | 2024-08-21 14:55 | XMS_ITS | Encounter Summary ---
Author Organization [facility] Address 100 [facility] 200 [place] [address] Phone Care Team Providers Care Head Start Director Name Role Phone Shara Verdugo MD Primary Care Provider [phone] Encounter Details Date Type Department Care Team (Late st Contact Info) Description 10/03/2023 Office Communication [facility] 100 [facility] 200 [place] [address] Darrell Santa MD [address] [facility] 204 [place] [address] Social History Tobacco Use Types [...] 2--3 wks * Telephone Encounter - Darrell aSnta MD - 10/03/2023 5:04 PM EDT Needs appt with me in 2-3 wks, ok to overbook documented in this encounter Plan of Treatment Not on file documented as of this encounter Visit Diagnoses Not on filedocumented in this encounter Care Teams Head Start Director Relationship Specialty Start Date End Date Shara Verdugo MD [address] [place], [place] PCP - General 05/11/20 documented as of this encounter
--- OUTSIDE RECORDS SUMMARY | 2024-08-21 14:55 | XMS_ITS | Clinical Summary ---
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); Essential hypertension 07/15/2024 Refill [facility] [address] [place] [address] Darrell Santa MD Chronic kidney disease, stage 4 (severe) (HCC); 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
== END ==
LOC: HO.CARD 12:37
PROVIDERS: PCP Internal Medicine; Visit Provider Nurse Practitioner Family
DX: I44.7 Left bundle-branch block, unspecified (principal); I48.0 Paroxysmal atrial fibrillation
CPT/HCPCS: 93306

== ENCOUNTER → 2024-08-21 12:39 | Outpatient (BNV) | payer OTHER, SELFPAY | PROVIDERS: PCP Internal Medicine; Visit Provider Internal Medicine | DX: I44.7 Left bundle-branch block, unspecified (principal) | CPT/HCPCS: 93306 ==

== ENCOUNTER 2024-08-27 14:09 | Outpatient (REF) | payer OTHER, SELFPAY ==
--- OUTSIDE RECORDS SUMMARY | 2024-08-27 18:09 | XMS_ITS | Clinical Summary ---
Author Organization [facility] Address [address] [facility] 7t [place] [address] Care Team Providers Care Checker And Packer Name Role Phone Unavailable Primary Care Provider [...]
--- OUTSIDE RECORDS SUMMARY | 2024-08-27 18:09 | XMS_ITS | Encounter Summary ---
Author Organization [facility] Address [address] [facility] 200 [place] [address] Phone Care Team Providers Care Compliance Monitor Name Role Phone Shara Verdugo MD Primary Care Provider [phone] Encounter Details Date Type Department Care Team (Late st Contact Info) Description 10/03/2023 Office Communication [facility] [address] [facility] 200 [place] [address] Darrell Santa MD [address] [facility] 204 [place] [address] Social History Tobacco Use Types [...] on filedocumented in this encounter Care Teams Compliance Monitor Relationship Specialty Start Date End Date Shara Verdugo MD [address] [facility] [address] [place], [place] PCP - General 05/11/20 documented as of this encounter
--- OUTSIDE RECORDS SUMMARY | 2024-08-27 18:09 | XMS_ITS | Encounter Summary ---
Author Organization [facility] Address [address] [facility] [address] [place] [address] Care Team Providers Care Metal Framer Name Role Phone Unavailable Primary Care Provider [...]
--- OUTSIDE RECORDS SUMMARY | 2024-08-27 18:09 | XMS_ITS | Encounter Summary ---
Author Organization [facility] Address [address] [facility] 200 [place] [address] Phone Care Team Providers Care Thermodynamics Professor Name Role Phone Shara Verdugo MD Primary Care Provider [phone] Encounter Details Date Type Department Care Team (Late st Contact Info) Description 03/14/2022 Telephone [facility] [address] [facility] 200 [place] [address] Shara Verdugo MD [address] [place] [address] Social History Tobacco Use Types Packs/Day Years [...] faxed over once complete. Please send to [facility] vascular . Thank you documented in this encounter Plan of Treatment Not on file documented as of this encounter Visit Diagnoses Not on filedocumented in this encounter Care Teams Thermodynamics Professor Relationship Specialty Start Date End Date Shara Verdugo MD [address] [place] [address] PCP - General 05/11/20 documented as of this encounter
--- OUTSIDE RECORDS SUMMARY | 2024-08-27 18:09 | XMS_ITS | Encounter Summary ---
Author Organization [facility] Address [address] [facility] [address] [facility] 200 [place] [address] Phone Care Team Providers Care Wheelchair Van Operator First Responder Name Role Phone Shara Verdugo MD Primary Care Provider [phone] Reason for Visit * Reason Comments Med Refill Encounter Details Date Type Department Care Team (Late st Contact Info) Description 08/07/2024 Refill [facility] [address] [address] [address] [place] [address] Darrell Santa MD [address] [facility] [address] [place] [address] Chronic kidney disease, stage 4 [...] hypertension documented in this encounter Care Teams Wheelchair Van Operator First Responder Relationship Specialty Start Date End Date Shara Verdugo MD [address] [place] [address] PCP - General 05/11/20 documented as of this encounter
--- OUTSIDE RECORDS SUMMARY | 2024-08-27 18:09 | XMS_ITS | Encounter Summary ---
Author Organization [facility] Address [address] [facility] 200 [place] [address] Phone Care Team Providers Care Switch Foreman Name Role Phone Shara Verdugo MD Primary Care Provider [phone] Reason for Visit * Reason Comments Med Refill Encounter Details Date Type Department Care Team (Late st Contact Info) Description 05/26/2024 Refill [facility] [address] [place] [address] Darrell Santa MD [address] [facility] [address] [place] [address] Chronic kidney disease, stage 4 [...] hypertension documented in this encounter Care Teams Switch Foreman Relationship Specialty Start Date End Date Shara Verdugo MD [address] [address] [place] [address] PCP - General 05/11/20 documented as of this encounter
--- OUTSIDE RECORDS SUMMARY | 2024-08-27 18:09 | XMS_ITS | Encounter Summary ---
Author Organization [facility] Address [address] [facility] [address] [facility] [facility] 200 [place] [address] Phone Care Team Providers Care Office Coordinator Receptionist Name Role Phone Shara Verdugo MD Primary Care Provider [phone] Reason for Visit * Reason Comments Med Refill Encounter Details Date Type Department Care Team (Late st Contact Info) Description 07/15/2024 Refill [facility] [address] [facility] [address] [facility] [address] [place] [address] Darrell Santa MD [address] [facility] 204 [place] [address] Chronic kidney disease, stage 4 [...] hypertension documented in this encounter Care Teams Office Coordinator Receptionist Relationship Specialty Start Date End Date Shara Verdugo MD [address] [place] [address] PCP - General 05/11/20 documented as of this encounter
--- OUTSIDE RECORDS SUMMARY | 2024-08-27 18:09 | XMS_ITS | Encounter Summary ---
Author Organization [facility] Address [address] [facility] [address] [facility] 200 [place] [address] Phone Care Team Providers Care Chef Saucier Name Role Phone Shara Verdugo MD Primary Care Provider [phone] Reason for Visit * Reason Comments Med Refill Encounter Details Date Type Department Care Team (Late st Contact Info) Description 10/16/2023 Refill [facility] [address] [place] [address] Darrell Santa MD [address] [facility] 204 [place] [address] Chronic kidney disease, stage 4 [...] hypertension documented in this encounter Care Teams Chef Saucier Relationship Specialty Start Date End Date Shara Verdugo MD [address] [place] [address] PCP - General 05/11/20 documented as of this encounter
--- OUTSIDE RECORDS SUMMARY | 2024-08-27 18:09 | XMS_ITS | Clinical Summary ---
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
--- OUTSIDE RECORDS SUMMARY | 2024-08-27 18:09 | XMS_ITS | Encounter Summary ---
Author Organization [facility] Address [address] [facility] 200 [place] [address] Phone Care Team Providers Care Marble Machine Tender Name Role Phone Shara Verdugo MD Primary Care Provider [phone] Reason for Visit * Reason Comments Med Refill Encounter Details Date Type Department Care Team (Late st Contact Info) Description 10/03/2023 Refill [facility] [address] [place] [address] Darrell Santa MD [address] [facility] 204 [place] [address] Social History Tobacco Use Types [...] on filedocumented in this encounter Care Teams Marble Machine Tender Relationship Specialty Start Date End Date Shara Verdugo MD [address] [place], [place] PCP - General 05/11/20 documented as of this encounter
[2024-08-27 22:06] LABS: CT PCR NOT DETECTED (Not Detect.); NG PCR NOT DETECTED (Not Detect.)
== END 2024-08-27 14:10 | disposition home or self-care (01) ==
LOC: HO.LNP 14:09
PROVIDERS: PCP Internal Medicine; Visit Provider Obstetrics & Gynecology
DX: Z01.411 Encounter for gynecological examination (general) (routine) with abnormal findings (principal); R31.29 Other microscopic hematuria; R10.2 Pelvic and perineal pain
CPT/HCPCS: 87086; 87088; 87186; 87491; 87591; 99396; 99459

== ENCOUNTER 2024-08-27 14:09 | Outpatient (AMB) | payer OTHER, SELFPAY ==
[2024-08-27 14:18] VITALS: BMI 40.6
--- NOTE | 2024-08-27 14:18 | A.OFFVIS_ITS ---
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 Allergies lactose Allergy (Intermediate, Verified 08/13/24 11:38) Vomiting amlodipine Allergy (Mild, Verified 08/13/24 11:38) leg edema liraglutide [From VICTOZA] Allergy (Mild, Verified 08/13/24 11:38) VOMITING RUBI PFSH Medical History Congestive heart failure Acute kidney injury superimposed on chronic kidney disease Diabetic foot ulcer Cataract (lens) fragments in eye following cataract surgery, right eye Cataract (lens) fragments in eye following cataract surgery, left eye Acute on chronic renal failure CHF exacerbation Afib Restrictive lung disease CKD (chronic kidney disease) stage 4, GFR 15-29 ml/min Right hemiparesis Cerebrovascular accident (CVA) due to occlusion of left middle cerebral artery Skin lesion Lumbar degenerative disc disease CKD (chronic kidney disease) BRYNN (obstructive sleep apnea) Arthritis Hypercholesteremia CAD (coronary artery disease) Sinusitis Stroke Asthma Hypertension Diabetes Surgical History History of esophagogastroduodenoscopy (EGD) H/O colonoscopy History of bilateral tubal ligation History of heart surgery History of coronary angioplasty with insertion of stent History of cataract surgery H/O right breast biopsy Family History Father Stroke Mother Myocardial infarction Paternal Uncle Cancer Family/Other Breast cancer Social History Household Members: Family Housing: House Are you a primary caregiver assisted living to a significant other at home: No Alcohol intake: never Comment: family at bedside Patient Tobacco Use Status: Never used Tobacco e-Cigarette/Vaping Use: Never Used Second Hand Smoke Exposure: No Advance Directives Date on File: 01/25/22 service: No Current occupational status: unemployed and disabled Sexual orientation: Straight/Heterosexual Gender identity: Female Cognitive needs: Yes Hearing needs: No Vision needs: No Female Reproductive History Menstrual Age of Menarche: 14 Coding
--- NOTE | 2024-08-27 14:18 | A.OFFVIS_ITS ---
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/DO NOT RS Electronics Teacher Required: Yes Electronics Teacher Language: Manager Statistics Services: Electronics Teacher Present (in person) Electronics Teacher Name: Maxine CHARLY Raymundo Information Interpreted: non-clinical & clinical Animated Cartoons Painter: Animated Cartoons Painter Present (CHARLY Macedo) Accompanied by: Self / Same As Patient Allergies lactose Allergy (Intermediate, Verified 08/13/24 11:38) Vomiting amlodipine Allergy (Mild, Verified 08/13/24 11:38) leg edema liraglutide [From VICTOZA] Allergy (Mild, Verified 08/13/24 11:38) VOMITING RUBI HPI Comments Details: Presenting for annual exam. Complaining of pelvic pain on off with no associated urinary or GI symptoms nausea or vomiting Last Pap/HPV was negative in 08/19 Last Mammogram was BI-RADS 2 in 07/23 [facility] Medical History Congestive heart failure Acute kidney injury superimposed on chronic kidney disease Diabetic foot ulcer Cataract (lens) fragments in eye following cataract surgery, right eye Cataract (lens) fragments in eye following cataract surgery, left eye Acute on chronic renal failure CHF exacerbation Afib Restrictive lung disease CKD (chronic kidney disease) stage 4, GFR 15-29 ml/min Right hemiparesis Cerebrovascular accident (CVA) due to occlusion of left middle cerebral artery Skin lesion Lumbar degenerative disc disease CKD (chronic kidney disease) BRYNN (obstructive sleep apnea) Arthritis Hypercholesteremia CAD (coronary artery disease) Sinusitis Stroke Asthma Hypertension Diabetes Surgical History History of esophagogastroduodenoscopy (EGD) H/O colonoscopy History of bilateral tubal ligation History of heart surgery History of coronary angioplasty with insertion of stent History of cataract surgery H/O right breast biopsy Family History Father Stroke Mother Myocardial infarction Paternal Uncle Cancer Family/Other Breast cancer Social History Household Members: Family Housing: House Are you a primary healthcare network consultant to a significant other at home: No Alcohol intake: never Comment: family at bedside Patient Tobacco Use Status: Never used Tobacco e-Cigarette/Vaping Use: Never Used Second Hand Smoke Exposure: No Advance Directives Date on File: 01/25/22 service: No Current occupational status: unemployed and disabled Sexual orientation: Straight/Heterosexual Gender identity: Female Cognitive needs: Yes Hearing needs: No Vision needs: No Female Reproductive History Menstrual Age of Menarche: 14 control method: none Total pregnancies: 5 Full term: 5 Date of last pap smear: 07/29/20 (negative pap smear, negative hpv) History of abnormal pap smear: No Date of Mammogram: 07/10/24 (bi rad 2) Date of last Bone Density Screenin12/17/21 Review of Systems Const All systems reviewed & are unremarkable except as noted in HPI and below Card Reports as per HPI Resp Reports as per HPI GI Reports as per HPI and Reports no additional complaints Reports as per HPI Physical Exam Vital Signs: BMI result Body Mass Index 40.6 Const General: cooperative, healthy appearing and comfortable Chest Chest palpation & inspection: normal inspection of the chest and normal palpation of entire chest wall Breast/axilla inspection: normal inspection of the breasts and normal inspection of the axillae Breast/axilla palpation: normal palpation of the breasts, normal palpation of the axillae and no axillary lymphadenopathy Resp Effort & Inspection: normal respiratory effort Auscultation: clear to auscultation bilaterally Percussion: percussion normal Cardio Palpation: normal PMI Rate: regular rate Rhythm: regular rhythm Heart sounds: no murmurs and no rubs Peripheral pulses: Peripheral pulses 2+ throughout GI Inspection: Yes normal to inspection Palpation (GI): Soft to palpation, nontender, no guarding, not rigid and No hepatosplenomegaly present Percussion: Yes normal to percussion Auscultation: normal bowel sounds Rectal Exam - Female: deferred General: Yes bladder normal to palpation External Female Exam: No lesion Speculum Exam - Vagina: normal appearance of the vagina, normal palpation, normal vaginal discharge and not erythematous Speculum Exam - Cervix: normal appearance of the cervix and normal palpation Bimanual exam- vagina & uterus: normal bimanual exam, normal palpation, uterine size normal, bladder normal to palpation, consistency normal and normal palp ation Bimanual Exam- Adnexa, other: normal adnexae, no masses and no tenderness Assessment & Plan Assessment & Plan (1) Well woman exam: Code(s): Z01.419 - Encounter for gynecological examination (general) (routine) without abnormal findings Category: Medical Plan: Co testing not indicated this year. Counseled the patient about the recommended dietary allowance of 1200 mg of Calcium & 600 IU of vitamin D. Instructions given the patient to schedule next screening Mammogram in 07/23 The patient was instructed to perform monthly self-breast exams and schedule annual exam in a year. All questions answered and the patient verbalized understanding. (2) Pelvic pain: Code(s): R10.2 - Pelvic and perineal pain Category: Medical Plan: Urine dip done in the office was positive for blood. GC and chlamydia taken and pelvic ultrasound ordered. Discussed with the patient the differential diagnosis of pelvic pain including but not limited to adnexal, uterine masses, pelvic infections (PID), GI the (Irritable bowel syndrome, diverticulitis, others), musculoskeletal, myofascial pain abdominal wall , adhesions, endometriosis, psychological and others causes. Will check results and treat accordingly. All questions answered, the patient verbalized understanding. Instructed the patient to schedule an ultrasound and a follow-up appointment in 2 weeks. All questions answered, the patient verbalized understanding and agreed with the plan. (3) Microscopic hematuria: Code(s): R31.29 - Other microscopic hematuria Category: Medical Plan: Urine dip showed microscopic hematuria, urine culture sent. Will repeat urine dip in 2 weeks. Discussed with the patient the possible causes of microscopic hematuria including but not limited to: interstitial cystitis, polyps, stones, masses, urethral inflammatory processes and others. If Urine Culture is negative and repeat urine dip in 2 weeks shows persistent microscopic hematuria, will proceed with CT abdomen/pelvis and urology referral. Instructions given the patient to schedule a 2 week urine dip follow-up appointm ent. All questions answered and the patient verbalized understanding. Orders: Orders US pelvic and transvaginal Today R10.2 - Pelvic and perineal pain Coding Level of Care Code Est Pt Prev Care 40-64y(53932) Diagnoses Well woman exam Z01.419 Pelvic pain R10.2 Microscopic hematuria R31.29
--- OUTSIDE RECORDS SUMMARY | 2024-08-27 16:22 | XMS_ITS | Encounter Summary ---
Author Organization [facility] Address [address] [facility] 200 [place] [address] Phone Care Team Providers Care Leather Goods Maker Name Role Phone Shara Verdugo MD Primary Care Provider [phone] Encounter Details Date Type Department Care Team (Late st Contact Info) Description 10/03/2023 Office Communication [facility] [address] [facility] 200 [place] [address] Darrell Santa MD [address] [facility] [address] [place] [address] Social History Tobacco Use Types [...] on filedocumented in this encounter Care Teams Leather Goods Maker Relationship Specialty Start Date End Date Shara Verdugo MD [address] [place], [place] PCP - General 05/11/20 documented as of this encounter
--- OUTSIDE RECORDS SUMMARY | 2024-08-27 16:22 | XMS_ITS | Encounter Summary ---
Author Organization [facility] Address [address] [facility] [address] [facility] 200 [place] [address] Phone Care Team Providers Care Moisture Machine Tender Name Role Phone Shara Verdugo MD Primary Care Provider [phone] Reason for Visit * Reason Comments Med Refill Encounter Details Date Type Department Care Team (Late st Contact Info) Description 10/16/2023 Refill [facility] [address] [facility] [address] [place] [address] Darrell Santa MD [address] [facility] [address] [place] [address] Chronic kidney disease, stage 4 [...] hypertension documented in this encounter Care Teams Moisture Machine Tender Relationship Specialty Start Date End Date Shara Verdugo MD [address] [place] [address] PCP - General 05/11/20 documented as of this encounter
--- OUTSIDE RECORDS SUMMARY | 2024-08-27 16:22 | XMS_ITS | Encounter Summary ---
Author Organization [facility] Address [address] [facility] [address] [facility] 7[address] [place] [address] Care Team Providers Care Scoring Machine Operator Name Role Phone Unavailable Primary [...]
--- OUTSIDE RECORDS SUMMARY | 2024-08-27 16:22 | XMS_ITS | Encounter Summary ---
Author Organization [facility] Address [address] [facility] 200 [place] [address] Phone Care Team Providers Care Custom Car Builder Name Role Phone Shara Verdugo MD Primary Care Provider [phone] Reason for Visit * Reason Comments Med Refill Encounter Details Date Type Department Care Team (Late st Contact Info) Description 05/26/2024 Refill [facility] [address] [place] [address] Darrell Santa MD [address] [facility] [address] [place] [address] Chronic kidney disease, stage 4 [...] hypertension documented in this encounter Care Teams Custom Car Builder Relationship Specialty Start Date End Date Shara Verdugo MD [address] [place] [address] PCP - General 05/11/20 documented as of this encounter
--- OUTSIDE RECORDS SUMMARY | 2024-08-27 16:22 | XMS_ITS | Encounter Summary ---
Author Organization [facility] Address [address] [facility] 200 [place] [address] Phone Care Team Providers Care Inbound Sales Manager Name Role Phone Shara Verdugo MD Primary Care Provider [phone] Reason for Visit * Reason Comments Med Refill Encounter Details Date Type Department Care Team (Late st Contact Info) Description 10/03/2023 Refill [facility] [address] [place] [address] Drarell Santa MD [address] [facility] [address] [place] [address] Social History Tobacco Use Types [...] on filedocumented in this encounter Care Teams Inbound Sales Manager Relationship Specialty Start Date End Date Shara Verdugo MD [address] [place], [place] PCP - General 05/11/20 documented as of this encounter
--- OUTSIDE RECORDS SUMMARY | 2024-08-27 16:22 | XMS_ITS | Clinical Summary ---
Author Organization [facility] Address [address] [facility] 7t [place] [address] Care Team Providers Care Packing Machine Can Feeder Name Role Phone Unavailable Primary Care Provider [...]
--- OUTSIDE RECORDS SUMMARY | 2024-08-27 16:22 | XMS_ITS | Encounter Summary ---
Author Organization [facility] Address [address] [facility] 200 [place] [address] Phone Care Team Providers Care Residential Coordinator Name Role Phone Shara Verdugo MD Primary Care Provider Reason for Visit * Reason Comments Med Refill Encounter Details Date Type Department Care Team (Late st Contact Info) Description 07/15/2024 Refill [facility] [address] [place] [address] Darrell Santa MD [address] [facility] [address] [place] [address] Chronic kidney disease, stage 4 [...] hypertension documented in this encounter Care Teams Residential Coordinator Relationship Specialty Start Date End Date Shara Verdugo MD [address] [facility] [address] [facility] [address] [place] [address] PCP - General 05/11/20 documented as of this encounter
--- OUTSIDE RECORDS SUMMARY | 2024-08-27 16:22 | XMS_ITS | Encounter Summary ---
Author Organization [facility] Address [address] [facility] 200 [place] [address] Phone Care Team Providers Care Supply Chain Project Manager Name Role Phone Shara Verdugo MD Primary Care Provider [phone] Encounter Details Date Type Department Care Team (Late st Contact Info) Description 03/14/2022 Telephone [facility] [address] [facility] 200 [place] [address] Shara Verdugo MD [address] [place] [address] Social History Tobacco Use Types Packs/Day Years [...] faxed over once complete. Please send to [facility] vascular . Thank you documented in this encounter Plan of Treatment Not on file documented as of this encounter Visit Diagnoses Not on filedocumented in this encounter Care Teams Supply Chain Project Manager Relationship Specialty Start Date End Date Shara Verdugo MD [address] [place] [address] PCP - General 05/11/20 documented as of this encounter
--- OUTSIDE RECORDS SUMMARY | 2024-08-27 16:22 | XMS_ITS | Clinical Summary ---
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
--- OUTSIDE RECORDS SUMMARY | 2024-08-27 16:22 | XMS_ITS | Encounter Summary ---
Author Organization [facility] Address [address] [address] [address] [facility] [address] [place] [address] Phone Care Team Providers Care Public Stenographer Name Role Phone Shara Verdugo MD Primary Care Provider [phone] Reason for Visit * Reason Comments Med Refill Encounter Details Date Type Department Care Team (Late st Contact Info) Description 08/07/2024 Refill [facility] [address] [place] [address] Darrell Santa MD [address] [facility] [address] [place] [address] Chronic kidney disease, stage 4 [...] hypertension documented in this encounter Care Teams Public Stenographer Relationship Specialty Start Date End Date Shara Verdugo MD [address] [facility] [address] [address] [address] [place] [address] PCP - General 05/11/20 documented as of this encounter
== END 2024-08-27 15:00 | disposition home or self-care (01) ==
LOC: HO.HWS 14:10
PROVIDERS: PCP Internal Medicine; Visit Provider Obstetrics & Gynecology
DX: Z01.419 Encounter for gynecological examination (general) (routine) without abnormal findings (principal); R10.2 Pelvic and perineal pain; R31.29 Other microscopic hematuria
CPT/HCPCS: 99396; 99459

== ENCOUNTER → 2024-08-27 23:59 | Outpatient (BNV) | payer OTHER, SELFPAY ==
--- NOTE | 2024-09-06 17:55 | A.OFFVIS_ITS ---
Intake Visit Reasons: Remote cardiomems- [facility] Allergies lactose Allergy (Intermediate, Verified 08/13/24 11:38) Vomiting amlodipine Allergy (Mild, Verified 08/13/24 11:38) leg edema liraglutide [From VICTOZA] Allergy (Mild, Verified 08/13/24 11:38) VOMITING RUBI PFSH Medical History Congestive heart failure Acute kidney injury superimposed on chronic kidney disease Diabetic foot ulcer Cataract (lens) fragments in eye following cataract surgery, right eye Cataract (lens) fragments in eye following cataract surgery, left eye Acute on chronic renal failure CHF exacerbation Afib Restrictive lung disease CKD (chronic kidney disease) stage 4, GFR 15-29 ml/min Right hemiparesis Cerebrovascular accident (CVA) due to occlusion of left middle cerebral artery Skin lesion Lumbar degenerative disc disease CKD (chronic kidney disease) BRYNN (obstructive sleep apnea) Arthritis Hypercholesteremia CAD (coronary artery disease) Sinusitis Stroke Asthma Hypertension Diabetes Surgical History History of esophagogastroduodenoscopy (EGD) H/O colonoscopy History of bilateral tubal ligation History of heart surgery History of coronary angioplasty with insertion of stent History of cataract surgery H/O right breast biopsy Family History Father Stroke Mother Myocardial infarction Paternal Uncle Cancer Family/Other Breast cancer Social History Household Members: Family Housing: House Are you a primary family day care provider to a significant other at home: No Alcohol intake: never Comment: family at bedside Patient Tobacco Use Status: Never used Tobacco e-Cigarette/Vaping Use: Never Used Second Hand Smoke Exposure: No Advance Directives Date on File: 01/25/22 service: No Current occupational status: unemployed and disabled Sexual orientation: Straight/Heterosexual Gender identity: Female Cognitive needs: Yes Hearing needs: No Vision needs: No Female Reproductive History Menstrual Age of Menarche: 14 Office Procedures Cardiac Device Check Cardiac Device Check Details: Monitoring period dates: 07/24/24 - 08/27/24 Optimal PA pressure range: LOREN goal 30mmhg Procedure code: 73569 BACKGROUND: Anna is implanted with the CardioMEMS PA Sensor.? I use this technology to monitor PA pressures on a weekly basis to ensure patients are wit hin their optimal range to prevent decompensation.? SUMMARY:? I utilized the remote monitoring platform ([email or web address]) to set optimal targets for pulmonary artery pressure thresholds as part of acute and chronic management of patient?s heart failure. During the period indicated above, I monitored the patient?s pulmonary artery pressures weekly via trend analysis and notification reports which provide alerts when patient?s PA pressures were outside of range to prompt immediate action in medication changes and communications.? The weekly reports are archived in the [email or web address] system which serve as a parallel record to document weekly PA pressures, medication changes, and clinical notes. I have reviewed readings on 07/26, 08/09, 08/16, 08/23, 08/27. Readings have ranged between 29-33mmhg. Has been averaging readings about twice weekly. She has been instructed to do them 3 times weekly. 52694 - Remote monitoring of wireless pulmonary artery pressure sensor Procedure code (CPT) selection complete Assessment & Plan Assessment & Plan (1) Presence of CardioMEMS HF system: Code(s): Z95.818 - Presence of other cardiac implants and grafts Category: Medical Plan: monthly report Coding Level of Care Code Procedure Only Diagnoses Presence of CardioMEMS HF system Z95.818 CPT Codes Cardiac Device Check - Cardiac Device 17: 81808 - Remote monitoring of wireless pulmonary artery pressure sensor ([id number])
== END ==
PROVIDERS: PCP Internal Medicine; Visit Provider Nurse Practitioner Family
DX: Z45.09 Encounter for adjustment and management of other cardiac device (principal)
CPT/HCPCS: 93264

== ENCOUNTER 2024-09-03 11:15 | Outpatient (REF) | payer OTHER, SELFPAY ==
--- NOTE | ~2024-09-03 | MM_ITS ---
EXAMINATION: DXA BONE DENSITY AXIAL HISTORY: Z78.0 - Asymptomatic menopausal state TECHNIQUE: Zilta Dual energy absorptiometry (DEXA) of the lumbar spine, total left hip, and femoral neck was performed. COMPARISON: Comparison is made with the prior examination dated 12/17/2021. FINDINGS: The bone mineral density of the lumbar spine is 1.215 with a T-score of 0.4, and a Z-score of 0.6. This is indicative of normal bone mineral density. This represents a BMD change of 2.2% compared to the prior exam. This is not statistically significant. The bone mineral density of the left total hip is 0.957 with a T-score of -0.4, and a Z-score of -0.1. This is indicative of normal bone mineral density. This represents a BMD change of 0.1% compared to the prior exam. This is not statistically significant. The bone mineral density of the left femoral neck is 0.788 with a T-score of -1.8, and a Z-score of -1.2. This is indicative of osteopenia. This represents a BMD change of -14.1% compared to the prior exam. FRACTURE RISK: The FRAX index suggests a ten year probability of major osteoporotic fracture of 4.7%, and of hip fracture 0.5%. MM/XR DEXA axial skeleton IMPRESSION: Based on bone mineral density, and according to World Health Organization (WHO) criteria, the diagnosis is consistent with osteopenia. All bone density values are in grams per centimeter squared (g/cm2). Statistically, 68% of repeat scans fall within 1 SD (+/- 0.010 g/cm2 for AP spine L1-L4) and 1 SD (+/- 0.012 g/cm2 for femur total) FRAX is a trademark of the [employer]'s [employer] Metabolic Bone Disease, a World Health Organization (WHO) Collaborating Center. Electronically signed by: Royce Streeter MD 09/03/2024 01:56 PM EDT
--- OUTSIDE RECORDS SUMMARY | 2024-09-03 13:04 | XMS_ITS | Encounter Summary ---
Author Organization [facility] Address [address] [facility] 200 [place] [address] Phone Care Team Providers Care Report Checker Name Role Phone Shara Verdugo MD Primary Care Provider [phone] Reason for Visit * Reason Comments Med Refill Encounter Details Date Type Department Care Team (Late st Contact Info) Description 05/26/2024 Refill [facility] [address] [place] [address] Darrell Santa MD [address] [facility] 204 [place] [address] Chronic kidney disease, stage 4 [...] hypertension documented in this encounter Care Teams Report Checker Relationship Specialty Start Date End Date Shara Verdugo MD [address] [place] [address] PCP - General 05/11/20 documented as of this encounter
--- OUTSIDE RECORDS SUMMARY | 2024-09-03 13:04 | XMS_ITS | Encounter Summary ---
Author Organization [facility] Address [address] [facility] 200 [place] [address] Phone Care Team Providers Care Breaster Name Role Phone Shara Verdugo MD Primary Care Provider [phone] Reason for Visit * Reason Comments Med Refill Encounter Details Date Type Department Care Team (Late st Contact Info) Description 10/03/2023 Refill [facility] [address] [place] [address] Darrell Santa MD [address] [facility] 204 [place] [address] Social History Tobacco Use Types [...] on filedocumented in this encounter Care Teams Breaster Relationship Specialty Start Date End Date Shara Verudgo MD [address] [place], [place] PCP - General 05/11/20 documented as of this encounter
--- OUTSIDE RECORDS SUMMARY | 2024-09-03 13:04 | XMS_ITS | Encounter Summary ---
Author Organization [facility] Address [address] [facility] 200 [place] [address] Phone Care Team Providers Care Solutions Sales Consultant Name Role Phone Shara Verdugo MD Primary Care Provider Reason for Visit * Reason Comments Med Refill Encounter Details Date Type Department Care Team (Late st Contact Info) Description 10/16/2023 Refill [facility] [address] [place] [address] Darrell Santa MD [address] [facility] 204 [place] [address] Chronic kidney disease, stage 4 [...] hypertension documented in this encounter Care Teams Solutions Sales Consultant Relationship Specialty Start Date End Date Shara Verdugo MD [address] [place] [address] PCP - General 05/11/20 documented as of this encounter
--- OUTSIDE RECORDS SUMMARY | 2024-09-03 13:04 | XMS_ITS | Encounter Summary ---
Author Organization [facility] Address [address] [facility] [address] [facility] 200 [place] [address] Phone Care Team Providers Care Edge Setter Name Role Phone Shara Verdugo MD Primary Care Provider [phone] Reason for Visit * Reason Comments Med Refill Encounter Details Date Type Department Care Team (Late st Contact Info) Description 08/07/2024 Refill [facility] [address] [place] [address] Darrell Santa MD [address] [facility] 204 [place] [address] Chronic kidney disease, stage 4 [...] hypertension documented in this encounter Care Teams Edge Setter Relationship Specialty Start Date End Date Shara Verdugo MD [address] [place] [address] PCP - General 05/11/20 documented as of this encounter
--- OUTSIDE RECORDS SUMMARY | 2024-09-03 13:04 | XMS_ITS | Clinical Summary ---
Author Organization [facility] Address [address] [facility] [address] [address] [place] [address] Phone Care Team Providers Care Print Producer Name Role Phone Shara Verdugo MD Primary Care Provider [phone] Allergies Active Allergy Reactions Criticality Noted Date [...] from an CHADD inhibitor or angiotensin receptor cmai especially since blood pressure is elevated today. 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
--- OUTSIDE RECORDS SUMMARY | 2024-09-03 13:04 | XMS_ITS | Encounter Summary ---
Author Organization [facility] Address [address] [facility] 200 [address] Phone Care Team Providers Care Airborne Operations Name Role Phone Shara Verdugo MD Primary Care Provider [phone] Encounter Details Date Type Department Care Team (Late st Contact Info) Description 03/14/2022 Telephone [facility] [address] [facility] 200 [address] Shara Verdugo MD [address] [place] [address] Social History Tobacco Use Types Packs/Day Years [...] faxed over once complete. Please send to [facility] . Thank you documented in this encounter Plan of Treatment Not on file documented as of this encounter Visit Diagnoses Not on filedocumented in this encounter Care Teams Airborne Operations Relationship Specialty Start Date End Date Shara Verdugo MD [address] [place] [address] PCP - General 05/11/20 documented as of this encounter
--- OUTSIDE RECORDS SUMMARY | 2024-09-03 13:04 | XMS_ITS | Patient Health Record ---
Author Organization [facility] Address [address] [place] [address] Care Team Providers Care Hearing Aid Specialist Name Role Phone Shara Verdugo Primary Care Provider Unavailab Royce Goldstein Unavailable [phone] José Heath Unavailable Unavailable Reason For Referral [...] Status Risk Notes Problem Gastroesophageal reflux disease (625247760) GERD (gastroesophag eal reflux disease) (530.81) Active confirmed Problem Iron deficiency anemia (37576576) Anemia, iron deficiency (280.9) Active confirmed Problem History of adenomatous polyp of colon (248259663) History of adenomatous polyp of colon (V12.72) Active confirmed Plan Of Treatment Future Test Test Name Order Date UPPER GI ENDOSCOPY 04/25/2013 COLONOSCOPY 04/25/2013 Next Appt Details Provider Name:Royce Cunningham , 11/13/2024 03:40:00 PM, [address], [address], [place], [address], Insurance Providers Payer Name Payer Address Payer Phone Subscriber Number Group Number Insured Name Patient Relationship to Insured Coverage Start Date Coverage End Date [facility] [address] [address] [place], [place] [id number] RENETTA GODINEZ Self - patient is the insured Medical (General) History Medical History History ICD Code 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
--- OUTSIDE RECORDS SUMMARY | 2024-09-03 13:04 | XMS_ITS | Encounter Summary ---
Author Organization [facility] Address [address] [facility] 200 [place] [address] Phone Care Team Providers Care Hand Cigar Maker Name Role Phone Shara Verdugo MD Primary Care Provider [phone] Encounter Details Date Type Department Care Team (Late st Contact Info) Description 10/03/2023 Office Communication [facility] [address] [facility] 200 [place] [address] Darrell Santa MD [address] [facility] 204 [place] [address] Social History Tobacco Use Types [...] on filedocumented in this encounter Care Teams Hand Cigar Maker Relationship Specialty Start Date End Date Shara Verdugo MD [address] [facility] [address] [address] [place], [place] PCP - General 05/11/20 documented as of this encounter
--- OUTSIDE RECORDS SUMMARY | 2024-09-03 13:04 | XMS_ITS | Encounter Summary ---
Author Organization [facility] Address [address] [facility] [facility] 200 [place] [address] Phone Care Team Providers Care Folding Machine Operator Name Role Phone Shara Verdugo MD Primary Care Provider [phone] Reason for Visit * Reason Comments Med Refill Encounter Details Date Type Department Care Team (Late st Contact Info) Description 07/15/2024 Refill [facility] [address] [place] [address] Darrell Santa MD [address] [facility] 204 [place] [address] Chronic kidney disease, stage 4 [...] hypertension documented in this encounter Care Teams Folding Machine Operator Relationship Specialty Start Date End Date Shara Verdugo MD [address] [place] [address] PCP - General 05/11/20 documented as of this encounter
--- OUTSIDE RECORDS SUMMARY | 2024-09-03 13:04 | XMS_ITS | Clinical Summary ---
Author Organization [email or web address] Address [address] [facility] 7t [place] [address] Care Team Providers Care Linseed Cake Trimmer Name Role Phone Unavailable Primary Care Provider [...]
--- OUTSIDE RECORDS SUMMARY | 2024-09-03 13:04 | XMS_ITS | Encounter Summary ---
Author Organization [employer] [facility] Address [address] [place] [address] Care Team Providers Care Repeater Operator Name Role Phone Unavailable Primary Care [...]
== END 2024-09-03 11:16 | disposition home or self-care (01) ==
LOC: HO.MAMMO 11:15
PROVIDERS: PCP Internal Medicine; Visit Provider Internal Medicine
DX: Z13.820 Encounter for screening for osteoporosis (principal); Z78.0 Asymptomatic menopausal state
CPT/HCPCS: 77080

== ENCOUNTER → 2024-09-03 11:30 | Outpatient (BNV) | payer OTHER, SELFPAY | PROVIDERS: PCP Internal Medicine; Visit Provider Radiology Diagnostic Radiology | DX: E28.39 Other primary ovarian failure (principal) | CPT/HCPCS: 77080 ==

== ENCOUNTER 2024-09-19 12:40 | Outpatient (REF) | payer OTHER, SELFPAY | END 2024-09-19 12:41 | disposition home or self-care (01) | LOC: HO.LNP 12:40 | PROVIDERS: PCP Internal Medicine; Visit Provider Obstetrics & Gynecology | DX: R31.29 Other microscopic hematuria (principal) | CPT/HCPCS: 87086; 99212 ==

== ENCOUNTER 2024-09-19 12:40 | Outpatient (AMB) | payer OTHER, SELFPAY ==
--- OUTSIDE RECORDS SUMMARY | 2024-09-19 12:43 | XMS_ITS | Encounter Summary ---
Author Organization [facility] [facility] Address [address] 7[address] [place] [address] Care Team Providers Care Sanitary Napkin Machine Tender Name Role Phone Unavailable Primary Care Provider [...]
--- OUTSIDE RECORDS SUMMARY | 2024-09-19 12:43 | XMS_ITS | Encounter Summary ---
Author Organization [facility] Address [address] [facility] 200 [place] [address] Phone Care Team Providers Care Maintenance Data Analyst Name Role Phone Shara Verdugo MD Primary Care Provider [phone] Reason for Visit * Reason Comments Med Refill Encounter Details Date Type Department Care Team (Late st Contact Info) Description 05/26/2024 Refill [facility] [address] [place] [address] Darrell Santa MD [address] [facility] 204 [place] [address] Chronic kidney disease, stage 4 [...] hypertension documented in this encounter Care Teams Maintenance Data Analyst Relationship Specialty Start Date End Date Shara Vredugo MD [address] [place] [address] PCP - General 05/11/20 documented as of this encounter
--- OUTSIDE RECORDS SUMMARY | 2024-09-19 12:43 | XMS_ITS | Clinical Summary ---
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
--- OUTSIDE RECORDS SUMMARY | 2024-09-19 12:43 | XMS_ITS | Encounter Summary ---
Author Organization [facility] Address [address] [facility] 200 [place] [address] Phone Care Team Providers Care Automotive Sales Professional Name Role Phone Shara Verdugo MD Primary Care Provider [phone] Encounter Details Date Type Department Care Team (Late st Contact Info) Description 10/03/2023 Office Communication [facility] [address] [facility] 200 [place] [address] Darrell Santa MD [address] [facility] 204 [place] [address] Social History Tobacco Use Types [...] on filedocumented in this encounter Care Teams Automotive Sales Professional Relationship Specialty Start Date End Date Shara Verdugo MD [address] [facility] [address] [address] [place], [place] PCP - General 05/11/20 documented as of this encounter
--- OUTSIDE RECORDS SUMMARY | 2024-09-19 12:43 | XMS_ITS | Encounter Summary ---
Author Organization [facility] Address [address] [facility] [address] [facility] 200 [place] [address] Phone Care Team Providers Care Gambling Broker Name Role Phone Shara Verdugo MD Primary Care Provider [phone] Reason for Visit * Reason Comments Med Refill Encounter Details Date Type Department Care Team (Late st Contact Info) Description 07/15/2024 Refill [facility] [address] [facility] [address] [place] [address] Darrell Santa MD [address] [facility] 204 [place] [address] Chronic kidney disease, stage 4 [...] hypertension documented in this encounter Care Teams Gambling Broker Relationship Specialty Start Date End Date Shara Verdugo MD [address] [place] [address] PCP - General 05/11/20 documented as of this encounter
--- OUTSIDE RECORDS SUMMARY | 2024-09-19 12:43 | XMS_ITS | Encounter Summary ---
Author Organization [facility] Address [address] [facility] [place] [address] Phone Care Team Providers Care Core Inspector Name Role Phone Shara Verdugo MD Primary Care Provider [phone] Reason for Visit * Reason Comments Med Refill Encounter Details Date Type Department Care Team (Late st Contact Info) Description 08/07/2024 Refill [facility] [address] [place] [address] Darrell Santa MD [address] [facility] 204 [place] [address] Chronic kidney disease, stage 4 [...] hypertension documented in this encounter Care Teams Core Inspector Relationship Specialty Start Date End Date Shara Verdugo MD [address] [facility] [address] [place] [address] PCP - General 05/11/20 documented as of this encounter
--- OUTSIDE RECORDS SUMMARY | 2024-09-19 12:43 | XMS_ITS | Encounter Summary ---
Author Organization [facility] Address [address] [facility] [address] [place] [address] Phone Care Team Providers Care Hand Meat Salter Name Role Phone Shara Verdugo MD Primary Care Provider [phone] Reason for Visit * Reason Comments Med Refill Encounter Details Date Type Department Care Team (Late st Contact Info) Description 10/03/2023 Refill [facility] [address] [place] [address] Darrell Santa MD [address] [facility] [address] [place] [address] Social History Tobacco Use Types [...] filedocumented in this encounter Care Teams Hand Meat Salter Relationship Specialty Start Date End Date Shara Verdugo MD [address] [place], [place] PCP - General 05/11/20 documented as of this encounter
--- OUTSIDE RECORDS SUMMARY | 2024-09-19 12:43 | XMS_ITS | Patient Health Record ---
Author Organization [facility] Address [address] [place] [address] Care Team Providers Care Paint Spraying Machine Operator Helper Name Role Phone Shara Verdugo Primary Care Provider Unavailab Royce Goldstein Unavailable [phone] José Heath Unavailable Unavailable Reason For Referral [...] Status Risk Notes Problem Gastroesophageal reflux disease (182189235) GERD (gastroesophag eal reflux disease) (530.81) Active confirmed Problem Iron deficiency anemia (06052764) Anemia, iron deficiency (280.9) Active confirmed Problem History of adenomatous polyp of colon (304857313) History of adenomatous polyp of colon (V12.72) Active confirmed Plan Of Treatment Future Test Test Name Order Date UPPER GI ENDOSCOPY 04/25/2013 COLONOSCOPY 04/25/2013 Next Appt Details Provider Name:Royce Cunningham , 11/13/2024 03:40:00 PM, [address], [address], [place], [address], Insurance Providers Payer Name Payer Address Payer Phone Subscriber Number Group Number Insured Name Patient Relationship to Insured Coverage Start Date Coverage End Date [facility] [address] [address] [place], [place] [id number] RENETTA GODINEZ Self - patient is the insured Medical (General) History Medical History History ICD Code CVA 2008--right-sided weakness hypertension IDDM sleep apnea--will be getting a CPAP mach ine asthma Denies [place] describes carotid artery disease on the right [...]
--- OUTSIDE RECORDS SUMMARY | 2024-09-19 12:43 | XMS_ITS | Encounter Summary ---
Author Organization [facility] Address [address] [facility] [address] [facility] [address] [place] [address] Phone Care Team Providers Care Mortarman Name Role Phone Shara Verdugo MD Primary Care Provider [phone] Reason for Visit * Reason Comments Med Refill Encounter Details Date Type Department Care Team (Late st Contact Info) Description 10/16/2023 Refill [facility] [address] [place] [place] [address] Darrell Santa MD [address] [facility] [address] [place] [address] Chronic kidney disease, stage 4 [...] hypertension documented in this encounter Care Teams Mortarman Relationship Specialty Start Date End Date Shara Verdugo MD [address] [place] [address] PCP - General 05/11/20 documented as of this encounter
--- OUTSIDE RECORDS SUMMARY | 2024-09-19 12:43 | XMS_ITS | Encounter Summary ---
Author Organization [facility] Address [address] [facility] [address] [place] [address] Phone Care Team Providers Care Dropper Tank Storage Name Role Phone Shara Verdugo MD Primary Care Provider [phone] Encounter Details Date Type Department Care Team (Late st Contact Info) Description 03/14/2022 Telephone [facility] [address] [facility] [address] [place] [address] Shara Verdugo MD [address] [place] [address] Social History Tobacco Use Types Packs/Day Years [...] faxed over once complete. Please send to [facility] . Thank you documented in this encounter Plan of Treatment Not on file documented as of this encounter Visit Diagnoses Not on filedocumented in this encounter Care Teams Dropper Tank Storage Relationship Specialty Start Date End Date Shara Verdugo MD [address] [place] [address] PCP - General 05/11/20 documented as of this encounter
--- OUTSIDE RECORDS SUMMARY | 2024-09-19 12:43 | XMS_ITS | Clinical Summary ---
Author Organization [employer] Address [address] [facility] 7[address] [place] [address] Care Team Providers Care Product Support Representative Name Role Phone Unavailable Primary Care Provider [...] 1961 FIT 1961 FOBT 1961 Sigmoidoscopy 1961 Disability Screening 1961 Alcohol/Substance Use Screening 1973 Tobacco Screening [...] patient's age to complete this topic Meningococcal B Vaccine Aged Out No l onger eligible based on patient's age to complete [...]
--- NOTE | 2024-09-19 13:03 | MHC.OFFVIS ---
Vital Signs 09/19/24 13:04 Height 5 ft 2 in Weight 222 lb BMI 40.6 Intake Visit Reasons: urine dip Allergies lactose Allergy (Intermediate, Verified 08/13/24 11:38) Vomiting amlodipine Allergy (Mild, Verified 08/13/24 11:38) leg edema liraglutide [From VICTOZA] Allergy (Mild, Verified 08/13/24 11:38) VOMITING RUBI HPI Comments Details: Presenting for repeat urine dip. Last visit urine dip was positive for microscopic hematuria, urine culture grew Citrobacter Koresi , nephrology was consulted recommended Cipro 500 mg p.o. b.i.d. for 10 days, the patient took the whole course without any complications. No complaint Last creatinine on 08/12 was 1.83 Next nephrology appointment is on 12/19/2024 [facility] Medical History Congestive heart failure Acute kidney injury superimposed on chronic kidney disease Diabetic foot ulcer Cataract (lens) fragments in eye following cataract surgery, right eye Cataract (lens) fragments in eye following cataract surgery, left eye Acute on chronic renal failure CHF exacerbation Afib Restrictive lung disease CKD (chronic kidney disease) stage 4, GFR 15-29 ml/min Right hemiparesis Cerebrovascular accident (CVA) due to occlusion of left middle cerebral artery Skin lesion Lumbar degenerative disc disease CKD (chronic kidney disease) BRYNN (obstructive sleep apnea) Arthritis Hypercholesteremia CAD (coronary artery disease) Sinusitis Stroke Asthma Hypertension Diabetes Surgical History History of esophagogastroduodenoscopy (EGD) H/O colonoscopy History of bilateral tubal ligation History of heart surgery History of coronary angioplasty with insertion of stent History of cataract surgery H/O right breast biopsy Family History Father Stroke Mother Myocardial infarction Paternal Uncle Cancer Family/Other Breast cancer Social History Household Members: Family Housing: House Are you a primary care companion to a significant other at home: No Alcohol intake: never Comment: family at bedside Patient Tobacco Use Status: Never used Tobacco e-Cigarette/Vaping Use: Never Used Second Hand Smoke Exposure: No Advance Directives Date on File: 01/25/22 service: No Current occupational status: unemployed and disabled Sexual orientation: Straight/Heterosexual Gender identity: Female Cognitive needs: Yes Hearing needs: No Vision needs: No Female Reproductive History Menstrual Age of Menarche: 14 Review of Systems Const All systems reviewed & are unremarkable except as noted in HPI and below Reports as per HPI and Reports no additional complaints GI Reports no additional complaints Reports no additional complaints Assessment & Plan Assessment & Plan (1) Microscopic hematuria: Code(s): R31.29 - Other microscopic hematuria Category: Medical Plan: Repeat urine dip today in the office showed persistent microscopic hematuria will send urine for culture and recommended to the patient call her PCP and nephrology office grant for an earlier follow-up. Questions answered, the patient verbalized understanding and agreed with the plan Coding Level of Care Code Est Pt Level 3 (76607) Diagnoses Microscopic hematuria R31.29
[2024-09-19 13:04] VITALS: BMI 40.6
== END 2024-09-19 13:56 | disposition home or self-care (01) ==
LOC: HO.HWS 12:40
PROVIDERS: PCP Internal Medicine; Visit Provider Obstetrics & Gynecology
DX: R31.29 Other microscopic hematuria (principal)
CPT/HCPCS: 99213

== ENCOUNTER 2024-09-20 13:41 | Outpatient (REF) | payer OTHER, SELFPAY ==
--- NOTE | ~2024-09-20 | US_ITS ---
EXAMINATION: US PELVIS TRANSABDOMINAL AND TRANSVAGINAL HISTORY: R10.2 - Pelvic and perineal pain COMPARISON: Comparison is made with the prior examination dated 08/03/2020. TECHNIQUE: Transabdominal and endovaginal real-time 2D keita-scale ultrasound was performed. FINDINGS: Uterus: The uterus is normal in size, measuring 8.9 x 2.9 x 4.9 cm. There are scattered myometrial calcifications. Again seen is a 4 x 2 x 5 mm anterior uterine fibroid (previously 7 x 6 x 7 mm). Endometrium: The endometrial stripe measures 5 mm in thickness. Right ovary: The right ovary is not identified. Left ovary: The left ovary measures 1.7 x 1.4 x 1.4 cm. The left ovary is normal in size and echotexture. Pelvic fluid: none. US/US pelvic and transvaginal IMPRESSION: Subcentimeter anterior uterine fibroid. The right ovary is not identified. Electronically signed by: Royce Streeter MD 09/20/2024 02:49 PM EDT
--- OUTSIDE RECORDS SUMMARY | 2024-09-20 13:46 | XMS_ITS | Encounter Summary ---
Author Organization [facility] Address [address] [facility] [facility] [address] 7[address] [place] [address] Care Team Providers Care Health Occupations Instructor Name Role Phone Unavailable Primary Care Provider [...]
== END 2024-09-20 13:42 | disposition home or self-care (01) ==
LOC: HO.US 13:41
PROVIDERS: PCP Internal Medicine; Visit Provider Obstetrics & Gynecology
DX: R10.2 Pelvic and perineal pain (principal)
CPT/HCPCS: 76830; 76856

== ENCOUNTER → 2024-09-20 13:44 | Outpatient (BNV) | payer OTHER, SELFPAY | PROVIDERS: PCP Internal Medicine; Visit Provider Radiology Diagnostic Radiology | DX: D25.9 Leiomyoma of uterus, unspecified (principal) | CPT/HCPCS: 76830; 76856 ==

== ENCOUNTER 2024-10-04 14:39 | Outpatient (AMB) | payer OTHER, SELFPAY ==
--- OUTSIDE RECORDS SUMMARY | 2024-10-04 14:41 | XMS_ITS | Encounter Summary ---
Author Organization [facility] Address [address] [place] [address] Care Team Providers Care Drafter Commercial Name Role Phone Unavailable Primary Care Provider [...]
--- NOTE | 2024-10-04 15:00 | HO.NEPHOV ---
Vital Signs 10/04/24 15:02 Height 5 ft 2 in Weight 221 lb 8 oz BMI 40.5 BP 112/60 Blood Pressure Location Lt brachial Position Sitting Pulse 72 Pulse Source Pulse Oximeter Pulse Oximetry (%) 96 Oxygen Delivery Method Room Air Intake Visit Reasons: Sooner appt blood in urine/ LVM Grain Commodity Manager Required: Yes Grain Commodity Manager Language: Deputy Clerk Of Superior Court Services: Grain Commodity Manager Offered & Declined ([facility] handicapper harness racing services refused) Information Interpreted: clinical only Accompanied by: Daughter Allergies lactose Allergy (Intermediate, Verified 10/04/24 15:01) Vomiting amlodipine Allergy (Mild, Verified 10/04/24 15:01) leg edema liraglutide [From VICTOZA] Allergy (Mild, Verified 10/04/24 15:01) VOMITING RUBI Medication List - Last Reconciled 10/04/24 by Petar Stevens MD albuterol sulfate 90 mcg/actuation 2 puffs inhalation Q6H PRN 30 days alprazolam (Xanax) 0.5 mg PO BEDTIME PRN 5 days amitriptyline 25 mg PO BEDTIME 90 days amlodipine 5 mg PO DAILY 90 days apixaban (Eliquis) 5 mg PO BID 90 days ascorbic acid (vitamin C) (Vitamin C With Allie Hips) 500 mg PO DAILY 90 days blood sugar diagnostic As directed cholecalciferol (vitamin D3) 50 mcg PO DAILY 90 days clopidogrel (Plavix) 75 mg PO DAILY commode As directed dapagliflozin propanediol (Farxiga) 10 mg PO DAILY furosemide 40 mg PO BID gabapentin 300 mg PO BID 30 days hydralazine 25 mg PO BID 90 days insulin regular hum U-500 conc 0 - 450 units subcut DAILY PRN lactulose 10 grams (15 mL) PO BEDTIME PRN 30 days metoprolol tartrate 50 mg (2 x 25 mg) PO BID 90 days nitroglycerin mg sublingual pantoprazole 40 mg PO DAILY 90 days potassium chloride ER 20 mEq PO DAILY [pulse oximeter As directed] rosuvastatin 40 mg PO DAILY 90 days semaglutide (Ozempic) mg subcut sennosides (Senna Laxative) 17.2 mg (2 x 8.6 mg) PO BEDTIME PRN 30 days Shower Chair As directed walker with seat and wheels HPI Comments Details: 62-year-old woman with a history of longstanding hypertension diabetes mellitus and obesity with CKD. She was accompanied by her daughter.Denies any new complaints. No urinary symptoms. She recently had an episode of gout and she completed a short course of colchicine. 09/05/23 Accompanied by daughter Still has edema No dyspnea K was 2.6 on 08/20/23 !! 10/17/23:Doing better lost few pounds; K was 3.3 01/11/24 ;Doing well ;No dyspnea;Cr stable 05/13/24;c/o Chest pain x 2 days ;Dyspnea on exertion- with walking; No cough; No sweating 10/04/2024. Recently seen by the Gynecology. She had a urinalysis which showed microhematuria. She also had UTI at the time. She has been referred for further management. At present she has no specific symptoms or signs of UTI Accompanied by her daughter [facility] Medical History Congestive heart failure Acute kidney injury superimposed on chronic kidney disease Diabetic foot ulcer Cataract (lens) fragments in eye following cataract surgery, right eye Cataract (lens) fragments in eye following cataract surgery, left eye Acute on chronic renal failure CHF exacerbation Afib Restrictive lung disease CKD (chronic kidney disease) stage 4, GFR 15-29 ml/min Right hemiparesis Cerebrovascular accident (CVA) due to occlusion of left middle cerebral artery Skin lesion Lumbar degenerative disc disease CKD (chronic kidney disease) BRYNN (obstructive sleep apnea) Arthritis Hypercholesteremia CAD (coronary artery disease) Sinusitis Stroke Asthma Hypertension Diabetes Surgical History History of esophagogastroduodenoscopy (EGD) H/O colonoscopy History of bilateral tubal ligation History of heart surgery History of coronary angioplasty with insertion of stent History of cataract surgery H/O right breast biopsy Family History Father Stroke Mother Myocardial infarction Paternal Uncle Cancer Family/Other Breast cancer Social History Household Members: Family Housing: House Are you a primary team primary care physician to a significant other at home: No Alcohol intake: never Comment: family at bedside Patient Tobacco Use Status: Never used Tobacco e-Cigarette/Vaping Use: Never Used Second Hand Smoke Exposure: No Advance Directives Date on File: 01/25/22 service: No Current occupational status: unemployed and disabled Sexual orientation: Straight/Heterosexual Gender identity: Female Cognitive needs: Yes Hearing needs: No Vision needs: No Female Reproductive History Menstrual Age of Menarche: 14 Physical Exam Vital Signs: Last Vital Signs Pulse 72 10/04/24 15:02 BP 112/60 10/04/24 15:02 Pulse Ox 96 10/04/24 15:02 Oxygen Delivery Method Room Air 10/04/24 15:02 BMI result Body Mass Index 40.5 Comfortable Neck supple no JVD. Lungs entry equal no rales. Heart S1-S2 heard no gallop or rub. Abdomen soft nontender. Neuro alert awake oriented. No asterixis. Extremities no edema. Results Reviewed Nephrology Results: No Data to Display Assessment & Plan Assessment & Plan (1) CKD (chronic kidney disease) stage 4, GFR 15-29 ml/min: Code(s): N18.4 - Chronic kidney disease, stage 4 (severe) Category: Medical (2) Anemia: Code(s): D64.9 - Anemia, unspecified Category: Medical (3) Type 2 diabetes mellitus, with long-term current use of insulin: Code(s): E11.9 - Type 2 diabetes mellitus without complications; Z79.4 - residential (current) use of insulin Category: Medical Qualifiers: Diabetes mellitus complication status: with hyperglycemia Qualified Code(s): E11.65 - Type 2 diabetes mellitus with hyperglycemia; Z79.4 - residential (current) use of insulin Plan: . Goal A1c less than 7% She follows with Endocrinology Dr. Shirley (4) CKD (chronic kidney disease) stage 3, GFR 30-59 ml/min: Code(s): N18.30 - Chronic kidney disease, stage 3 unspecified Category: Medical Qualifiers: Chronic kidney disease stage 3 subtype: stage 3b (GFR 30-44) Qualified Code(s): N18.32 - Chronic kidney disease, stage 3b Plan: Chronic kidney disease in the setting of longstanding hypertension obesity and diabetes mellitus. Renal function : creatinine increased from 1.8 mg/dL. to 2.2 Goal is to slow the progression of disease. Continue to avoid nephrotoxic agents. We discussed importance of tight control of blood pressure and blood sugar. She will benefit from weight loss as well. Continue Farxiga for renal protection 10/04/2024. Overall renal function stable. Recent serum potassium is 4.0. History of microscopic hematuria. This may be due to recent UTI. However I will recheck urine analysis along with urine culture. Obtain follow up renal ultrasonogram as well. Further workup will be based on the outcome of the above investigations. (5) Microscopic hematuria: Code(s): R31.29 - Other microscopic hematuria Category: Medical Plan . Hypokalemia on KCL 40 meq REcent K is 4.0 Orders: Orders Urine Culture Today R31.29 - Other microscopic hematuria UA and rflx microscopic Today R31.29 - Other microscopic hematuria Urine Cytology Today R31.29 - Other microscopic hematuria, R31.9 - Hematuria, unspecified US renal BI Today I10 - Essential (primary) hypertension, N18.32 - Chronic kidney disease, stage 3b, R31.29 - Other microscopic hematuria Basic Metabolic Panel 8 Weeks N18.32 - Chronic kidney disease, stage 3b Coding Level of Care Code Est Pt Level 4 (12236) Diagnoses CKD (chronic kidney disease) stage 4, GFR 15-29 ml/min N18.4 Anemia D64.9 Type 2 diabetes mellitus with hyperglycemia, with long-term current use of insulin E11.65; Z79.4 Diabetes mellitus complication status: with hyperglycemia Stage 3b chronic kidney disease N18.32 Chronic kidney disease stage 3 subtype: stage 3b (GFR 30-44) Microscopic hematuria R31.29
[2024-10-04 15:02] VITALS: BP 112/60; PULSE 72; O2SAT 96; BMI 40.5
== END 2024-10-04 15:15 | disposition home or self-care (01) ==
LOC: HO.HKA 14:39
PROVIDERS: PCP Internal Medicine; Visit Provider Internal Medicine Hypertension Specialist
DX: N18.4 Chronic kidney disease, stage 4 (severe) (principal); D64.9 Anemia, unspecified; E11.65 Type 2 diabetes mellitus with hyperglycemia; Z79.4 Long term (current) use of insulin; N18.32 Chronic kidney disease, stage 3b; R31.29 Other microscopic hematuria
CPT/HCPCS: 99214

== ENCOUNTER → 2024-10-04 14:39 | Outpatient (BNVA) | payer OTHER, SELFPAY | PROVIDERS: PCP Internal Medicine; Visit Provider Internal Medicine Hypertension Specialist | DX: N17.9 Acute kidney failure, unspecified (principal); N18.4 Chronic kidney disease, stage 4 (severe); E11.65 Type 2 diabetes mellitus with hyperglycemia; D64.9 Anemia, unspecified; R31.29 Other microscopic hematuria; E87.6 Hypokalemia; Z79.4 Long term (current) use of insulin | CPT/HCPCS: 99212 ==

== ENCOUNTER 2024-10-09 09:47 | Outpatient (AMB) | payer OTHER, SELFPAY ==
--- NOTE | 2024-10-09 09:48 | A.OFFVIS_ITS ---
Intake Visit Reasons: Tv ultra sound follow up ok per nuno Habitat Biologist Required: Yes Habitat Biologist Language: Cloth Pattern Maker Services: Habitat Biologist Present (in person) Habitat Biologist Name: Nuno PARKS Information Interpreted: non-clinical & clinical Allergies lactose Allergy (Intermediate, Verified 10/09/24 09:49) Vomiting amlodipine Allergy (Mild, Verified 10/09/24 09:49) leg edema liraglutide [From VICTOZA] Allergy (Mild, Verified 10/09/24 09:49) VOMITING RUBI HPI Comments Details: The pt scheduled a TV for follow-up regarding her pelvic pain. The patient is doing well,her pain resolved The following workup was done so far: GC/CT negative. Last visit urine dip showed microscopic hematuria, the patient urine culture grew Citrobacter, nephrology recommended a course of Cipro, and a follow-up urine culture was negative Pelvic ultrasound showed the following: Uterus: The uterus is normal in size, measuring 8.9 x 2.9 x 4.9 cm. There are scattered myometrial calcifications. Again seen is a 4 x 2 x 5 mm anterior uterine fibroid (previously 7 x 6 x 7 mm). Endometrium: The endometrial stripe measures 5 mm in thickness. Right ovary: The right ovary is not identified. Left ovary: The left ovary measures 1.7 x 1.4 x 1.4 cm. The left ovary is normal in size and echotexture. Pelvic fluid: none. COUNTS INCLUDE 234 BEDS AT THE [facility] Medical History Congestive heart failure Acute kidney injury superimposed on chronic kidney disease Diabetic foot ulcer Cataract (lens) fragments in eye following cataract surgery, right eye Cataract (lens) fragments in eye following cataract surgery, left eye Acute on chronic renal failure CHF exacerbation Afib Restrictive lung disease CKD (chronic kidney disease) stage 4, GFR 15-29 ml/min Right hemiparesis Cerebrovascular accident (CVA) due to occlusion of left middle cerebral artery Skin lesion Lumbar degenerative disc disease CKD (chronic kidney disease) BRYNN (obstructive sleep apnea) Arthritis Hypercholesteremia CAD (coronary artery disease) Sinusitis Stroke Asthma Hypertension Diabetes Surgical History History of esophagogastroduodenoscopy (EGD) H/O colonoscopy History of bilateral tubal ligation History of heart surgery History of coronary angioplasty with insertion of stent History of cataract surgery H/O right breast biopsy Family History Father Stroke Mother Myocardial infarction Paternal Uncle Cancer Family/Other Breast cancer Social History Household Members: Family Housing: House Are you a primary attending ambulatory care to a significant other at home: No Alcohol intake: never Comment: family at bedside Patient Tobacco Use Status: Never used Tobacco e-Cigarette/Vaping Use: Never Used Second Hand Smoke Exposure: No Advance Directives Date on File: 01/25/22 service: No Current occupational status: unemployed and disabled Sexual orientation: Straight/Heterosexual Gender identity: Female Cognitive needs: Yes Hearing needs: No Vision needs: No Female Reproductive History Menstrual Age of Menarche: 14 Review of Systems Const All systems reviewed & are unremarkable except as noted in HPI and below Reports as per HPI and Reports no additional complaints GI Reports no additional complaints Reports no additional complaints Telehealth Telehealth Telehealth Platform: Telephone Location of provider rendering services: practice address Location of patient: address on file Patient Identification confirmed using: Name, : Yes Telehealth method: video Patient verbally consented to treatment: Yes Patient verbally consented to billing insurance company: Yes Patient informed of any privacy concerns related to visit: Yes Minutes spent on Phone/Video with Pt.: 4 Assessment & Plan Assessment & Plan (1) Pelvic pain: Code(s): R10.2 - Pelvic and perineal pain Category: Medical Plan: Discussed with the patient the results of the workup done including negative GC/chlamydia, urine dip, urine cx SANDY neg and pelvic ultrasound. Instructions given the patient to call or go to emergency room in case recurrence of her pelvic pain, fever above 100.4, nausea or vomiting. All questions answered, the patient verbalized understanding. (2) Uterine myoma: Code(s): D25.9 - Leiomyoma of uterus, unspecified Category: Medical Plan: Discussed with the patient the findings on pelvic ultrasound & the risk of nicole sarcoma; in addition reviewed with the patient that malignancy and pre malignancy cannot be ruled out without hysterectomy for pathological evaluation ; furthermore, explained to the patient the limitation of pelvic ultrasound and endometrial biopsy in the setting. Discussed with the patient the options of treatment including expectant management versus hysterectomy; the pros and cons, risks benefits of each approach were discussed with the patient including the fact that in cases of myosarcoma, surgical treatment can lead to early diagnosis and positively affects the prognosis; after further discussion, the patient decided to proceed with expectant management. Will repeat pelvic ultrasound periodically. Instructions given to patient to call in case any of the following occurs: pressure symptoms, abnormal uterine bleeding, pelvic pain; and to schedule a 12- months pelvic ultrasound (order placed) and a follow-up appointment . All questions answered, the patient verbalized understanding and agreed with the plan . I spent a total of 20 minutes reviewing the chart, talking to the patient via video and documenting in the medical record. Orders: Orders US pelvic and transvaginal 1 Year D25.9 - Leiomyoma of uterus, unspecified Coding Level of Care Code Tele Est Pt Level 3 (83893) Diagnoses Pelvic pain R10.2 Uterine myoma D25.9
--- OUTSIDE RECORDS SUMMARY | 2024-10-09 10:44 | XMS_ITS | Encounter Summary ---
Author Organization [facility] Address [address] [place] [address] Care Team Providers Care Technical Services Rep Name Role Phone Unavailable Primary Care Provider [...]
== END 2024-10-09 09:59 | disposition home or self-care (01) ==
LOC: HO.HWS 09:47
PROVIDERS: PCP Internal Medicine; Visit Provider Obstetrics & Gynecology
DX: R10.2 Pelvic and perineal pain (principal); D25.9 Leiomyoma of uterus, unspecified
CPT/HCPCS: 99213

== ENCOUNTER 2024-10-12 05:38 | Emergency (ER) | payer OTHER, SELFPAY ==
--- NOTE | ~2024-10-12 | CT_ITS ---
CLINICAL HISTORY: fall CT cervical spine without contrast Comparison: None Findings: Normal vertebral body alignment. There is multiple level degenerative disc, facet, and uncovertebral joint change. 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 No acute fractures or dislocations. No acute findings on limited view of the intracranial contents. Soft tissues of the neck are normal. No consolidation or effusion at the lung apices. IMPRESSION: No acute findings. This document has been electronically signed by: Wilbert Bundy MD on 10/12/2024 08:10:58
--- NOTE | ~2024-10-12 | CT_ITS ---
CLINICAL HISTORY: fall head trauma CT head without contrast Comparison: None Findings: No intra-axial mass, midline shift, hydrocephalus, or acute hemorrhage. There is moderate diffuse atrophy.. There is no sinus or mastoid fluid. The orbits are unremarkable. There is no acute fracture. There is a left frontal scalp hematoma. IMPRESSION: 1. No acute intracranial findings. This document has been electronically signed by: Wilbert Bundy MD on 10/12/2024 08:11:14
[2024-10-12 05:42] VITALS: BP 178/88; PULSE 73; RESP 20; TEMP 36.8; O2SAT 97; BMI 40.4
--- NOTE | 2024-10-12 06:37 | PC.NURSE ---
Pt reports she had a fall on monday while trying to sit on rollator. Headstrike on qu. Abrasion to L-eye and some swelling. Pt denies pain and reports that she is having L-eye swelling. Pt denies any new vision changes.
--- NOTE | 2024-10-12 06:56 | ED_ITS ---
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 She has not vomited since and has been acting fine. Her L eyebrow area and L forehead have a bruise so family wanted her to be seen given her eliquis use. She has no other injuries or complaints MD complaint: fall Onset (ago): day(s) (4) Fall from: standing Fall witnessed: yes, by family Place fall occurred: home Loss of consciousness: none Prolonged down time: no Symptoms prior to fall: none Context: tripped/slipped Location of injury: head Severity: mild Quality: dull Associated symptoms (after fall): denies Related Data Home Medications ?Medication ?Instructions ?Recorded ?Confirmed blood sugar diagnostic #10 ea 02/24/20 10/04/24 insulin regular hum U-500 conc 500 0 - 450 unit subcut DAILY PRN for 02/24/20 10/04/24 unit/mL subcutaneous soln insulin pump nitroglycerin 0.4 mg sublingual mg sublingual 07/04/24 10/04/24 tablet semaglutide 0.25 mg or 0.5 mg (2 mg subcut 10/04/24 10/04/24 mg/3 mL) subcutaneous pen injector (Ozempic) Previous Rx's ?Medication ?Instructions ?Recorded rosuvastatin 40 mg tablet 40 mg PO DAILY 90 days #90 tabs 05/03/22 commode #1 ea 07/07/22 pulse oximeter #1 ea 07/07/22 lactulose 10 gram/15 mL oral 10 g (15 mL) PO BEDTIME PRN 11/13/22 solution constipation 30 days #450 mL albuterol sulfate 90 mcg/actuation 2 puff inhalation Q6H PRN 01/04/23 aerosol inhaler shortness of breath or wheezing 30 days #8.5 grams Shower Chair #1 ea 12/04/23 alprazolam 0.5 mg tablet (Xanax) 0.5 mg PO BEDTIME PRN anxiety 5 12/04/23 days #5 tabs walker #1 ea 12/04/23 metoprolol tartrate 25 mg tablet 50 mg (2 x 25 mg) PO BID 90 days 01/10/24 #360 tabs clopidogrel 75 mg tablet (Plavix) 75 mg PO DAILY #90 tabs 04/06/24 amitriptyline 25 mg tablet 25 mg PO BEDTIME 90 days #90 tabs 04/18/24 sennosides 8.6 mg tablet (Senna 17.2 mg (2 x 8.6 mg) PO BEDTIME 04/29/24 Laxative) PRN constipation 30 days #60 tabs cholecalciferol (vitamin D3) 50 50 mcg PO DAILY 90 days #90 caps 05/26/24 mcg (2,000 unit) capsule gabapentin 300 mg capsule 300 mg PO BID 30 days #60 caps 05/26/24 furosemide 40 mg tablet 40 mg PO BID #180 tabs 05/27/24 apixaban 5 mg tablet (Eliquis) 5 mg PO BID 90 days #180 tabs 06/09/24 hydralazine 25 mg tablet 25 mg PO BID 90 days #180 tabs 08/01/24 amlodipine 5 mg tablet 5 mg PO DAILY 90 days #90 tabs 08/07/24 ascorbic acid (vitamin C) 500 mg 500 mg PO DAILY 90 days #90 tabs 08/07/24 tablet (Vitamin C With Allie Hips) dapagliflozin propanediol 10 mg 10 mg PO DAILY #90 tabs 08/07/24 tablet (Farxiga) pantoprazole 40 mg tablet,delayed 40 mg PO DAILY 90 days #90 tabs 08/26/24 release potassium chloride 20 mEq 20 meq PO DAILY #14 tabs 08/27/24 tablet,extended release Allergies Allergy/AdvReac Type Severity Reaction Status Date / Time lactose Allergy Intermediate Vomiting Verified 10/12/24 05:42 amlodipine Allergy Mild leg edema Verified 10/12/24 05:42 liraglutide [From VICTOZA] Allergy Mild VOMITING RUBI Verified 10/12/24 05:42 Review of Systems 2 Review of Systems: Constitutional : No Fever, No Chills, No Fatigue ENT/Mouth : No sore throat, No Rhinorrhea Eyes: No Eye Pain, No Swelling, No Redness Cardiovascular : No Chest Pain, No SOB, No Dyspnea on Exertion Respiratory : No Cough, No Sputum Gastrointestinal : No Nausea, No Vomiting, No Diarrhea, No abdominal Pain Genitourinary : No Dysuria, No Urinary Frequency, No Hematuria, Musculoskeletal : No joint pain, No Myalgias, No Joint Swelling Skin : No Skin Lesions, No rash Neuro : No Weakness, No Numbness, No Dizziness, no Headache All other systems reviewed and are negative [facility] Past Medical History Attestation statement: The following information was validated with the patient. Source: old records reviewed Medical History Congestive heart failure Acute kidney injury superimposed on chronic kidney disease Diabetic foot ulcer Cataract (lens) fragments in eye following cataract surgery, right eye Cataract (lens) fragments in eye following cataract surgery, left eye Acute on chronic renal failure CHF exacerbation Afib Restrictive lung disease CKD (chronic kidney disease) stage 4, GFR 15-29 ml/min Right hemiparesis Cerebrovascular accident (CVA) due to occlusion of left middle cerebral artery Skin lesion Lumbar degenerative disc disease CKD (chronic kidney disease) BRYNN (obstructive sleep apnea) Arthritis Hypercholesteremia CAD (coronary artery disease) Sinusitis Stroke Asthma Hypertension Diabetes Surgical History History of esophagogastroduodenoscopy (EGD) H/O colonoscopy History of bilateral tubal ligation History of heart surgery History of coronary angioplasty with insertion of stent History of cataract surgery H/O right breast biopsy Family History Family History Father Stroke Mother Myocardial infarction Paternal Uncle Cancer Family/Other Breast cancer Social History Social History Household Members: Family Housing: House Are you a primary manager long term care to a significant other at home: No Alcohol intake: never Comment: family at bedside Patient Tobacco Use Status: Never used Tobacco Smoked in Last 30 Days: No e-Cigarette/Vaping Use: Never Used Second Hand Smoke Exposure: No Use of substances other than those prescribed or required for medical reasons: No Advance Directives: Yes Advance Directives on File: Yes Advance Directives Date on File: 01/25/22 Patient : No service: No Current occupational status: unemployed and disabled Sexual orientation: Straight/Heterosexual Gender identity: Female Cognitive needs: Yes Hearing needs: No Vision needs: No Physical Exam 2 Vital Signs: Vital Signs: Last Vital Signs Temp 98.2 F 10/12/24 05:42 Pulse 71 10/12/24 07:21 Resp 16 10/12/24 07:21 BP 158/55 H 10/12/24 07:21 Pulse Ox 97 10/12/24 07:21 O2 Del Method Room Air 10/12/24 07:21 BMI result Body Mass Index 40.4 Appearance: Alert. Oriented X3. No acute distress. Eyes: Pupils equal, round and reactive to light. ENT: Pharynx normal. L forehead small abrasion and contusion, L eyebrow small contusion and L upper eyelid lateral very small contusion and bruising Neck: Normal inspection. Neck supple. CVS: Normal heart rate and rhythm. Pulses normal. Respiratory: No respiratory distress. Breath sounds normal. Abdomen: Soft and nontender. Skin: Skin warm and dry. Normal skin color. Normal skin turgor. Extremities: No lower extremity edema. No calf ttp Neuro: Oriented X 3. No motor deficit. No sensory deficit. CN2-12 intact Medical Decision Making Medical Decision Making [facility] Narrative: 64 yo female with pMH Of HTN, CKD, CHF, PAF on eliquis, UTI, obesity, R sided hemiparesis from CVA, HLD here with c/o L sided forehead contusion s/p mechanical fall on Monday. Given her eliquis use she will need CT imaging. She denies any other injuries. She is at her baseline. No raccoon eyes/hemotympanum/hatfield sign on exam. Differential Diagnosis Differential Diagnoses: The differential diagnosis associated with the presentation includes head trauma, contusion, ICH Admission/Observation Consideration of admission/observation: Escalation of care including admission/observation considered neg findings stable for DC Lab Data [facility] Lab Attestation statement: I reviewed the patient's lab results. at baseline 10/12/24 07:26 10/12/24 07:26 Labs: Lab Results 10/12/24 Range/Units 07:26 WBC 7.2 (4.8-10.8) X10*3/uL RBC 4.93 (4.20-5.50) X10*6/uL Hgb 13.9 (12.0-16.0) g/dl Hct 43.4 (37.0-47.0) % MCV 88.0 (80.0-98.0) fL MCH 28.2 (27.0-33.0) pg MCHC 32.0 (31.0-35.0) g/dl RDW 14.7 (11.0-16.0) % Plt Count 199 (160-400) X10*3/uL MPV 10.5 (9.4-12.3) fL Immature Gran % (Auto) 0.1 (0.0-0.4) % Neut % (Auto) 61.3 (45-73) % Lymph % (Auto) 26.7 (20-40) % Whitley % (Auto) 9.0 (2-11) % Eos % (Auto) 2.5 (0-4) % Baso % (Auto) 0.4 (0-2) % Lymph # (Auto) 1.9 (1.2-4.9) X10*3/uL Whitley # (Auto) 0.7 (0.1-1.2) X10*3/uL Eos # (Auto) 0.2 (0.0-0.4) X10*3/uL Baso # (Auto) 0.0 (0.0-0.2) X10*3/uL Abs Immat Gran (auto) 0.01 (0.00-0.03) X10*3/uL Absolute Neuts (auto) 4.4 (2.0-8.3) x10*3/uL Absolute Nucleated RBC 0.000 (0.0-0.012) X10*3/uL Nucleated RBC % (auto) 0.0 (0.0-0.2) /100WBC PT 14.3 H (10.9-12.4) SEC INR 1.2 H (0.9-1.1) Sodium 141 (135-145) mmol/L Potassium 3.5 (3.3-5.1) mmol/L Chloride 100 (96-108) mmol/L Carbon Dioxide 33 H (22-29) mmol/L Anion Gap 12 (12-20) BUN 26 H (9-16) mg/dL Creatinine 1.79 H (0.5-1.4) mg/dL Estim Creat Clear Calc 35.6 Estimated GFR 29 Random Glucose 258 H (60-115) mg/dL Calcium 9.3 (8.4-10.2) mg/dL Total Bilirubin 0.3 (0.0-1.0) mg/dL AST 26 (5-31) U/L ALT 21 (0-31) U/L Alkaline Phosphatase 91 (39-117) U/L Total Protein 8.1 H (6.5-8.0) g/dL Albumin 4.0 (3.5-5.0) g/dL Independent Interpretation I performed an independent interpretation of an: CT Scan (no trauma) Radiology Impression Discussion of test interpretation with radiology: I have reviewed the radiologist's reading. Independent Historian Clinical information obtained from an independent historian. History obtained from or confirmed by: Other External Record Review External record reviewed: Inpatient record and Outpatient record Discharge Plan Discharge Clinical Impression: Contusion of face Qualifiers: Encounter type: initial encounter Qualified Code(s): S00.83XA - Contusion of other part of head, initial encounter Patient Disposition: Home, Self-Care Instructions: Facial Contusion (ED) Additional Instructions: labs and imaging reassuring please return for any worsening symptoms or concerns such as confusion, vomiting, or anything else Prescriptions: No Action rosuvastatin 40 mg tablet 40 mg PO DAILY 90 Days Qty: 90 3RF lactulose 10 gram/15 mL solution 10 g PO BEDTIME PRN (Reason: constipation) 30 Days Qty: 450 2RF metoprolol tartrate 25 mg tablet 50 mg PO BID 90 Days Qty: 360 3RF clopidogrel [Plavix] 75 mg tablet 75 mg PO DAILY Qty: 90 1RF amitriptyline 25 mg tablet 25 mg PO BEDTIME 90 Days Qty: 90 1RF cholecalciferol (vitamin D3) 50 mcg (2,000 unit) capsule 50 mcg PO DAILY 90 Days Qty: 90 2RF gabapentin 300 mg capsule 300 mg PO BID 30 Days Qty: 60 0RF furosemide 40 mg tablet 40 mg PO BID Qty: 180 3RF Eliquis 5 mg tablet 5 mg PO BID 90 Days Qty: 180 1RF ascorbic acid (vitamin C) [Vitamin C With Allie Hips] 500 mg tablet 500 mg PO DAILY 90 Days Qty: 90 1RF amlodipine 5 mg tablet 5 mg PO DAILY 90 Days Qty: 90 1RF dapagliflozin propanediol [Farxiga] 10 mg tablet 10 mg PO DAILY Qty: 90 3RF pantoprazole 40 mg tablet,delayed release (DR/EC) 40 mg PO DAILY 90 Days Qty: 90 0RF potassium chloride 20 mEq tablet extended release 20 meq PO DAILY Qty: 14 0RF (DME) commode Kit See Rx Instructions .Route Qty: 1 0RF Rx Instructions: As directed (DME) pulse oximeter See Rx Instructions .Route .MEDSUPPLY Qty: 1 0RF Rx Instructions: As directed alprazolam [Xanax] 0.5 mg tablet 0.5 mg PO BEDTIME PRN (Reason: anxiety) 5 Days Qty: 5 0RF (DME) Shower Chair Misc See Rx Instructions .ROUTE .MEDSUPPLY Qty: 1 0RF Rx Instructions: As directed (DME) walker Misc See Rx Instructions .ROUTE .MEDSUPPLY Qty: 1 0RF Rx Instructions: with seat and wheels insulin regular hum U-500 conc 500 unit/mL solution 0 - 450 unit subcut DAILY PRN (Reason: for insulin pump) (DME) blood sugar diagnostic Strip See Rx Instructions Not Applicable .MEDSUPPLY Qty: 10 Rx Instructions: As directed albuterol sulfate 90 mcg/actuation HFA aerosol inhaler 2 puff inhalation Q6H PRN (Reason: shortness of breath or wheezing) 30 Days Qty: 8.5 3RF sennosides [Senna Laxative] 8.6 mg tablet 17.2 mg PO BEDTIME PRN (Reason: constipation) 30 Days Qty: 60 1RF hydralazine 25 mg tablet 25 mg PO BID 90 Days Qty: 180 1RF nitroglycerin 0.4 mg tablet, sublingual sublingual Ozempic 0.25 mg or 0.5 mg (2 mg/3 mL) pen injector subcut Print Language: Uzbek
[2024-10-12 07:21] VITALS: BP 158/55; PULSE 71; RESP 16; O2SAT 97
[2024-10-12 07:31] LABS: MANUAL DIFF FLAG NO
[2024-10-12 07:34] LABS: Basophils Percent Auto 0.4 % (0-2); Eosinophils Absolute Auto 0.2 X10*3/uL (0.0-0.4); Eosinophils Percent Auto 2.5 % (0-4); Hematocrit 43.4 % (37.0-47.0); Hemoglobin 13.9 g/dl (12.0-16.0); Imm Gran Abs Auto 0.01 X10*3/uL (0.00-0.03); Imm Gran Pct Auto 0.1 % (0.0-0.4); Lymphocytes Absolute Auto 1.9 X10*3/uL (1.2-4.9); Lymphocytes Percent Auto 26.7 % (20-40); Mean Corpuscular Hemoglobin 28.2 pg (27.0-33.0); Mean Platelet Volume 10.5 fL (9.4-12.3); Monocytes Absolute Auto 0.7 X10*3/uL (0.1-1.2); Neutrophils Absolute Auto 4.4 x10*3/uL (2.0-8.3); Neutrophils Percent Auto 61.3 % (45-73); Platelet Count 199 X10*3/uL (160-400); Red Blood Count 4.93 X10*6/uL (4.20-5.50); Red Cell Distribution Width 14.7 % (11.0-16.0); White Blood Count 7.2 X10*3/uL (4.8-10.8)
[2024-10-12 07:38] LABS: INTERNATIONAL NORM RATIO 1.2 (0.9-1.1); Prothrombin Time 14.3 SEC (10.9-12.4)
[2024-10-12 07:52] LABS: Alanine Aminotransferase 21 U/L (0-31); Alkaline Phosphatase 91 U/L (39-117); Anion Gap 12 (12-20); Aspartate Amino Transferase 26 U/L (5-31); Bilirubin Total 0.3 mg/dL (0.0-1.0); Blood Urea Nitrogen 26 mg/dL (9-16); Calcium 9.3 mg/dL (8.4-10.2); Carbon Dioxide 33 mmol/L (22-29); Chloride 100 mmol/L (96-108); Creatinine Clr Calc Pharmacy 35.6; Estimated Glomerular Filt Rate 29; Glucose Random 258 mg/dL (60-115); Potassium 3.5 mmol/L (3.3-5.1); Sodium 141 mmol/L (135-145); Total Protein 8.1 g/dL (6.5-8.0)
[2024-10-12 08:50] VITALS: RESP 16
[2024-10-12 08:55] VITALS: BP 136/43; PULSE 77; RESP 16; TEMP 36.8; O2SAT 96
[2024-10-12 09:09] VITALS: BP 136/43; PULSE 77; RESP 16; TEMP 36.8; O2SAT 96
== END 2024-10-12 09:09 | disposition home or self-care (01) ==
PROVIDERS: Emergency Provider Emergency Medicine; PCP Internal Medicine
DX: S00.83XA Contusion of other part of head, initial encounter (principal); W18.39XA Other fall on same level, initial encounter; Y93.89 Activity, other specified; Y92.017 Garden or yard in single-family (private) house as the place of occurrence of the external cause; Y99.9 Unspecified external cause status
CPT/HCPCS: 36415; 70450; 72125; 80053; 85025; 85610; 99284

== ENCOUNTER → 2024-10-12 06:57 | Outpatient (BNV) | payer OTHER, SELFPAY | PROVIDERS: Emergency Provider Emergency Medicine; PCP Internal Medicine; Visit Provider Specialist | DX: R51.9 Headache, unspecified (principal); S09.90XA Unspecified injury of head, initial encounter | CPT/HCPCS: 70450; 72125 ==

== ENCOUNTER 2024-10-15 14:15 | Outpatient (REF) | payer OTHER, SELFPAY ==
--- NOTE | ~2024-10-15 | US_ITS ---
EXAMINATION: Ultrasound renal bilaterally. CLINICAL INFORMATION: Hypertension. COMPARISON: Correlated to CT dated November 24, 2016. TECHNIQUE: Real-time ultrasound kidneys using grayscale technique. FINDINGS: Inadequate evaluation due to patient's body habitus. Right kidney: 10 x 4 x 5 cm. Normal echotexture. Normal renal cortical thickness. No hydronephrosis. 0.7 cm hyperechoic abnormality in the renal cortex. Left kidney: 10 x 5 x 5 cm. Normal echotexture. Normal renal cortical thickness. No hydronephrosis. US/US renal BI IMPRESSION: No hydronephrosis. 0.7 cm hyperechoic lesion, right kidney. Consider angiomyolipoma among other differential diagnosis. Electronically signed by: Nikolai Marinelli MD 10/15/2024 03:49 PM EDT
[2024-10-15 17:07] LABS: Urine Cytology See Pathology rpt
[2024-10-15 17:17] LABS: Appearance Urine Clear; Color Urine Yellow; Glucose Urine UA >=1000 mg/dL (Negative); Leukocyte Esterase Urine Trace (Negative); Nitrite Urine Negative (Negative); PH 7.5 (5.0-9.0); UMIC TRIGGER UA YES; Urine Blood Negative (Negative); Urine Ketones Negative (Negative); Urine Protein 100 (2+) mg/dL (Neg-Trace)
[2024-10-15 17:20] LABS: Bacteria Urine None Seen (None Seen); Hyaline Casts Urine 0-2 /LPF (0-2); RBC Urine 0-2 /HPF (0-2); Squamous Epithelial Cell Urine 0-2 /HPF (0-2); WBC Urine 0-5 /HPF (0-5)
== END 2024-10-15 14:16 | disposition home or self-care (01) ==
LOC: HO.US 14:15
PROVIDERS: PCP Internal Medicine; Visit Provider Internal Medicine Hypertension Specialist
DX: I12.9 Hypertensive chronic kidney disease with stage 1 through stage 4 chronic kidney disease, or unspecified chronic kidney disease (principal); N18.32 Chronic kidney disease, stage 3b; R31.29 Other microscopic hematuria
CPT/HCPCS: 76775; 81001; 87086; 88112

== ENCOUNTER → 2024-10-15 14:21 | Outpatient (BNV) | payer OTHER, SELFPAY | PROVIDERS: PCP Internal Medicine; Visit Provider Radiology Diagnostic Radiology | DX: N28.89 Other specified disorders of kidney and ureter (principal) | CPT/HCPCS: 76775 ==

== ENCOUNTER → 2024-10-15 23:59 | Outpatient (BNV) | payer OTHER, SELFPAY ==
--- NOTE | 2024-10-21 09:38 | MHC.OFFVIS ---
Intake Visit Reasons: Remote [facility] - [facility] Allergies lactose Allergy (Intermediate, Verified 10/12/24 05:42) Vomiting amlodipine Allergy (Mild, Verified 10/12/24 05:42) leg edema liraglutide (From VICTOZA) Allergy (Mild, Verified 10/12/24 05:42) VOMITING RUBI PFSH Medical History Congestive heart failure Acute kidney injury superimposed on chronic kidney disease Diabetic foot ulcer Cataract (lens) fragments in eye following cataract surgery, right eye Cataract (lens) fragments in eye following cataract surgery, left eye Acute on chronic renal failure CHF exacerbation Afib Restrictive lung disease CKD (chronic kidney disease) stage 4, GFR 15-29 ml/min Right hemiparesis Cerebrovascular accident (CVA) due to occlusion of left middle cerebral artery Skin lesion Lumbar degenerative disc disease CKD (chronic kidney disease) BRYNN (obstructive sleep apnea) Arthritis Hypercholesteremia CAD (coronary artery disease) Sinusitis Stroke Asthma Hypertension Diabetes Surgical History History of esophagogastroduodenoscopy (EGD) H/O colonoscopy History of bilateral tubal ligation History of heart surgery History of coronary angioplasty with insertion of stent History of cataract surgery H/O right breast biopsy Family History Father Stroke Mother Myocardial infarction Paternal Uncle Cancer Family/Other Breast cancer Social History Household Members: Family Housing: House Are you a primary care specialist to a significant other at home: No Alcohol intake: never Comment: family at bedside Patient Tobacco Use Status: Never used Tobacco e-Cigarette/Vaping Use: Never Used Second Hand Smoke Exposure: No Advance Directives Date on File: 01/25/22 service: No Current occupational status: unemployed and disabled Sexual orientation: Straight/Heterosexual Gender identity: Female Cognitive needs: Yes Hearing needs: No Vision needs: No Female Reproductive History Menstrual Age of Menarche: 14 Office Procedures Cardiac Device Check Cardiac Device Check Details: Monitoring period dates: 08/28/24 - 10/15/24 Optimal PA pressure range: LOREN goal 30mmhg Procedure code: 78170 BACKGROUND: Anna is implanted with the CardioMEMS PA Sensor.? I use this technology to monitor PA pressures on a weekly basis to ensure patients are within their optimal range to prevent decompensation.? SUMMARY:? I utilized the remote monitoring platform ([employer]) to set optimal targets for pulmonary artery pressure thresholds as part of acute and chronic management of patient?s heart failure. During the period indicated above, I monitored the patient?s pulmonary artery pressures weekly via trend analysis and notification reports which provide alerts when patient?s PA pressures were outside of range to prompt immediate action in medication changes and communications.? The weekly reports are archived in the [employer] system which serve as a parallel record to document weekly PA pressures, medication changes, and clinical notes. I have reviewed readings on 08/30, 09/06, 09/13, 09/20, 09/27, 10/04, 10/11. Readings have ranged between 27-40mmhg. Has been averaging readings about once to twice weekly. She has been instructed to do them 3 times weekly.Her diuretic has been adjusted for elevated readings. 83856 - Remote monitoring of wireless pulmonary artery pressure sensor Procedure code (CPT) selection complete Assessment & Plan Assessment & Plan (1) Presence of CardioMEMS HF system: Code(s): Z95.818 - Presence of other cardiac implants and grafts Category: Medical Plan: monthly report Coding Level of Care Code Procedure Only Diagnoses Presence of CardioMEMS HF system Z95.818 CPT Codes Cardiac Device Check - Cardiac Device 17: 43448 - Remote monitoring of wireless pulmonary artery pressure sensor ([id number])
== END ==
PROVIDERS: PCP Internal Medicine; Visit Provider Nurse Practitioner Family
DX: Z45.09 Encounter for adjustment and management of other cardiac device (principal)
CPT/HCPCS: 93264

== ENCOUNTER 2024-11-05 10:32 | Outpatient (AMB) | payer OTHER, SELFPAY ==
[2024-11-05 10:41] VITALS: BP 120/62; PULSE 80; O2SAT 95; BMI 36.5
--- NOTE | 2024-11-05 10:41 | MHC.OFFVIS ---
Vital Signs 11/05/24 10:41 Height 5 ft 2 in Weight 199 lb 8.293 oz BMI 36.5 BP 120/62 Blood Pressure Location Lt brachial Position Sitting Pulse 80 Pulse Source Pulse Oximeter Pulse Oximetry (%) 95 Oxygen Delivery Method Room Air Intake Visit Reasons: Obstructive sleep apnea Intake Note: pt is here for follow up and states she is feeling a little dizzy today. Allergies lactose Allergy (Intermediate, Verified 11/05/24 10:59) Vomiting amlodipine Allergy (Mild, Verified 11/05/24 10:59) leg edema liraglutide (From VICTOZA) Allergy (Mild, Verified 11/05/24 10:59) VOMITING RUBI Medication List - Last Reconciled 11/05/24 by Real Slade MD albuterol sulfate 90 mcg/actuation 2 puffs inhalation Q6H PRN 30 days alprazolam (Xanax) 0.5 mg PO BEDTIME PRN 5 days amitriptyline 25 mg PO BEDTIME 90 days amlodipine 5 mg PO DAILY 90 days apixaban (Eliquis) 5 mg PO BID 90 days ascorbic acid (vitamin C) (Vitamin C With Allie Hips) 500 mg PO DAILY 90 days blood sugar diagnostic As directed cholecalciferol (vitamin D3) 50 mcg PO DAILY 90 days clopidogrel (Plavix) 75 mg PO DAILY commode As directed dapagliflozin propanediol (Farxiga) 10 mg PO DAILY furosemide 40 mg PO BID gabapentin 300 mg PO BID 30 days hydralazine 25 mg PO BID 90 days insulin regular hum U-500 conc 0 - 450 units subcut DAILY PRN lactulose 10 grams (15 mL) PO BEDTIME PRN 30 days metoprolol tartrate 50 mg (2 x 25 mg) PO BID 90 days nitroglycerin mg sublingual pantoprazole 40 mg PO DAILY 90 days potassium chloride ER 20 mEq PO DAILY [pulse oximeter As directed] rosuvastatin 40 mg PO DAILY 90 days semaglutide (Ozempic) mg subcut sennosides (Senna Laxative) 17.2 mg (2 x 8.6 mg) PO BEDTIME PRN 30 days Shower Chair As directed walker with seat and wheels Do you need a note to return to daycare/school/sports/work: No HPI HPI Obstructive sleep apnea: Details: THIS 64 YEARS OLD ALBANIAN-SPEAKING VERY PLEASANT FEMALE WHO IS GROSSLY OBESE AND IS A CASE OF OBSTRUCTIVE SLEEP APNEA. SHE ALSO HAS HISTORY OF MILD INTERMITTENT BRONCHIAL ASTHMA BUT HAS NOT NEEDED TO USE ALBUTEROL AT ALL DURING THE PAST 4 MONTHS. SHE USES CPAP MORE REGULARLY, AND MISSED USING ONLY 3 NIGHTS DURING THE PAST MONTH. DURING THE NIGHT THE MASK SLIPS OFF AFTER USING 3-4 HOURS, SO HER DURATION OF USING CPAP REMAINS SOMEWHAT SUBOPTIMAL. SHE DENIES ANY SPECIFIC DIFFICULTIES WITH THE CPAP AND REMAINS ALERT DURING THE DAYTIME. [facility] Medical History Congestive heart failure Acute kidney injury superimposed on chronic kidney disease Diabetic foot ulcer Cataract (lens) fragments in eye following cataract surgery, right eye Cataract (lens) fragments in eye following cataract surgery, left eye Acute on chronic renal failure CHF exacerbation Afib Restrictive lung disease CKD (chronic kidney disease) stage 4, GFR 15-29 ml/min Right hemiparesis Cerebrovascular accident (CVA) due to occlusion of left middle cerebral artery Skin lesion Lumbar degenerative disc disease CKD (chronic kidney disease) BRYNN (obstructive sleep apnea) Arthritis Hypercholesteremia CAD (coronary artery disease) Sinusitis Stroke Asthma Hypertension Diabetes Surgical History History of esophagogastroduodenoscopy (EGD) H/O colonoscopy History of bilateral tubal ligation History of heart surgery History of coronary angioplasty with insertion of stent History of cataract surgery H/O right breast biopsy Family History Father Stroke Mother Myocardial infarction Paternal Uncle Cancer Family/Other Breast cancer Social History Household Members: Family Housing: House Are you a primary childbirth and infant care teacher to a significant other at home: No Alcohol intake: never Comment: family at bedside Patient Tobacco Use Status: Never used Tobacco e-Cigarette/Vaping Use: Never Used Second Hand Smoke Exposure: No Advance Directives Date on File: 01/25/22 service: No Current occupational status: unemployed and disabled Sexual orientation: Straight/Heterosexual Gender identity: Female Cognitive needs: Yes Hearing needs: No Vision needs: No Female Reproductive History Menstrual Age of Menarche: 14 Review of Systems Const All systems reviewed & are unremarkable except as noted in HPI and below Eyes Reports no additional complaints ENT Reports nasal congestion (MILD OFF AND ON) Card Denies chest pain, Reports irregular heart rhythm (PAROXYSMAL ATRIAL FIB) and Denies leg edema Resp Reports as per HPI GI Reports no additional complaints Reports no additional complaints Musc Reports abnormal gait (UNSTABLE ON FEET, USES WALKER FOR STABILITY), Reports back pain and Reports myalgias Skin/Breast Reports system reviewed and no additional complaints, except as documented Neuro Reports abnormal gait (UNSTABLE ON FEET, USES WALKER FOR STABILITY) Psych Reports no additional complaints Endo Reports other (DIABETES MELLITUS) Physical Exam Vital Signs: Last Vital Signs Pulse 80 11/05/24 10:41 BP 120/62 11/05/24 10:41 Pulse Ox 95 11/05/24 10:41 Oxygen Delivery Method Room Air 11/05/24 10:41 BMI result Body Mass Index 36.5 Const General: comfortable, no acute distress, alert and awake Orientation/consciousness: patient oriented x3 HEENT Head: Yes normal to inspection General nose exam: No nasal polyps present, No nasal discharge present and Other nasal findings present (Minimal, irritation over the nasal septumon right side is noted,no bleeding) Face and sinus: Yes sinuses nontender Mouth: oropharynx normal Throat: Yes posterior oropharynx normal Eyes General: appearance normal, both eyes and all related structures Neck Neck: Yes normal visual inspection, Yes no lymphadenopathy, Yes trachea midline and Yes no JVD Thyroid: Thyroid normal Chest Chest palpation & inspection: normal inspection of the chest, normal palpation of entire chest wall and no tenderness Resp Other: PERCUSSION NOTE NOT PERCEPTIBLE BECAUSE OF THICK CHEST WALL. BREATH SOUNDS ARE DISTANT BUT EQUAL ON BOTH SIDES. NO WHEEZES CREPITATIONS OR RHONCHI ARE HEARD. Cardio Palpation: normal PMI Rate: regular rate Rhythm: regular rhythm Heart sounds: no gallops and no murmurs GI Palpation (GI): Soft to palpation, nontender, No hepatosplenomegaly present, no masses and Other GI palpation findings present (ABDOMEN MODERATELY OBESE AND PROTUBERANT) Auscultation: normal bowel sounds Back/Spine/Pelvis Thoracic/Lumbar Spine: thoracic and lumbar spine normal to inspection and thoraco-lumbar ROM limited Skin General skin exam: dry skin Neuro General: patient oriented x3 and No no focal motor deficits (WEAKNESS OF LOWER EXTREMITIES) Cranial nerves: Yes CN's II-XII intact bilaterally Extrem General: Yes normal to inspection, Yes no calf tenderness and Yes edema (2 + EDEMA OF THE LEGS ) Psych Appearance: grossly normal and well kempt Speech and movement: Normal speech and movement present Results Reviewed Results Reviewed: COMPLIANCE REPORT IS REVIEWED. USED 27/30 NIGHTS, 90%. AVERAGE USAGE PER NIGHT IS 4 HOURS 12 MINUTES WHICH IS BETTER THAN BEFORE HER CPAP IS RELATIVELY LOW, 7 CM. THERE WAS SOME AIR LEAK, MAXIMUM 91.8, AND RESIDUAL AHI IS 8.3 WHICH IS PROBABLY RELATED TO AIR LEAK Assessment & Plan Assessment & Plan (1) Obesity (BMI 30-39.9): Comment: BMI=36.5 REMAINS GROSSLY OBESE SHE IS NOT ABLE TO DO WALK OR DO ANY EXERCISE. SHE TRIES TO WATCH HER DIET. THERE IS NOT MUCH POTENTIAL FOR HER TO LOSE WEIGHT. Code(s): E66.9 - Obesity, unspecified Category: Medical Plan: AGAIN TALKED TO HER ABOUT CUTTING DOWN THE PORTIONS OF MEALS, MUCH POSSIBLE (2) Restrictive lung disease: Comment: KNOWN TO HAVE RESTRICTIVE LUNG DISEASE SINCE THE HER PULMONARY FUNCTION TEST IN 2012. CLINICALLY I AM SURE SHE DOES HAVE MODERATE DEGREE OF RESTRICTION, THIS IS SECONDARY TO MORBID OBESITY. SHE ALSO SEEMS TO HAVE MILD DEGREE OF ASTHMA/REACTIVE AIRWAYS. Code(s): J98.4 - Other disorders of lung Category: Medical Plan: ENCOURAGED TO DO DEEP BREATHING EXERCISES DURING THE DAY (3) BRYNN on CPAP: Comment: LONGSTANDING HISTORY OF OBSTRUCTIVE SLEEP APNEA. PRESSURE SETTING 7 CM. WHICH IS RELATIVELY LOW , F F MASK SHE IS USING IT REGULARLY EVERY NIGHT, BUT DURING THE NIGHT SHE HAPPENS TO PULL IT OFF, AND HER USAGE REMAINS SUBOPTIMAL . THIS TIME THE AVERAGE USE IT PER NIGHT IS CLOSE TO 4 HOURS WHICH IS BETTER THAN BEFORE. RESIDUAL AHI 8.3, STILL HIGH BUT IMPROVED FROM LAST. Code(s): G47.33 - Obstructive sleep apnea (adult) (pediatric); Z99.89 - Dependence on other enabling machines and devices Category: Medical Plan: COMMENDED FOR USING IT MOST OF THE NIGHTS. ENCOURAGED TO KEEP THE MASK ON FOR MORE THAN 4 HOURS PER NIGHT. Coding Level of Care Code Est Pt Level 3 (84509) Diagnoses Obesity (BMI 30-39.9) E66.9 Restrictive lung disease J98.4 BRYNN on CPAP G47.33; Z99.89
--- OUTSIDE RECORDS SUMMARY | 2024-11-05 11:30 | XMS_ITS | Encounter Summary ---
Author Organization [facility] Address [address] [place] [address] Phone Care Team Providers Care Operator Helper Name Role Phone Shara Verdugo MD Primary Care Provider [phone] Encounter Details Date Type Department Care Team (Late st Contact Info) Description 03/14/2022 Telephone [facility] [address] [place] [address] Shara Verdugo MD [address] [place] [address] Social History Tobacco Use Types Packs/Day Years [...] faxed over once complete. Please send to [facility] . Thank you documented in this encounter Plan of Treatment Not on file documented as of this encounter Visit Diagnoses Not on filedocumented in this encounter Care Teams Operator Helper Relationship Specialty Start Date End Date Shara Verdugo MD [address] [place] [address] PCP - General 05/11/20 documented as of this encounter
--- OUTSIDE RECORDS SUMMARY | 2024-11-05 11:30 | XMS_ITS | Encounter Summary ---
Author Organization [facility] Address [address] [place] [address] Care Team Providers Care Line Construction Supervisor Name Role Phone Unavailable Primary Care [...]
--- OUTSIDE RECORDS SUMMARY | 2024-11-05 11:30 | XMS_ITS | Patient Health Record ---
Author Organization [facility] Address [address] [place] [address] Care Team Providers Care Weight Loss Sales Consultant Name Role Phone Shara Verdugo Primary Care Provider Unavailab Royce Goldstein Unavailable [phone] José Heath Unavailable Unavailable Reason For Referral [...] Status Risk Notes Problem Gastroesophageal reflux disease (572459673) GERD (gastroesophag eal reflux disease) (530.81) Active confirmed Problem Iron deficiency anemia (59273394) Anemia, iron deficiency (280.9) Active confirmed Problem History of adenomatous polyp of colon (235545313) History of adenomatous polyp of colon (V12.72) Active confirmed Plan Of Treatment Future Test Test Name Order Date UPPER GI ENDOSCOPY 04/25/2013 COLONOSCOPY 04/25/2013 Next Appt Details Provider Name:Royce Cunningham , 11/13/2024 03:40:00 PM, [address], [address], [place], [address], Insurance Providers Payer Name Payer Address Payer Phone Subscriber Number Group Number Insured Name Patient Relationship to Insured Coverage Start Date Coverage End Date [facility] [address] [address] [place], [place] [id number] RENETTA GODINEZ Self - patient is the insured Medical (General) History Medical History History ICD Code CVA 2008--right-sided weakness hypertension IDDM sleep apnea--will be getting a CPAP mach ine asthma Denies CT describes carotid artery disease on the right [...]
== END 2024-11-05 11:04 | disposition home or self-care (01) ==
LOC: HO.HPS 10:35
PROVIDERS: PCP Internal Medicine; Visit Provider Internal Medicine
DX: E66.9 Obesity, unspecified (principal); J98.4 Other disorders of lung; G47.33 Obstructive sleep apnea (adult) (pediatric); Z99.89 Dependence on other enabling machines and devices
CPT/HCPCS: 99213

== ENCOUNTER → 2024-11-05 10:32 | Outpatient (BNVA) | payer OTHER, SELFPAY | PROVIDERS: PCP Internal Medicine; Visit Provider Internal Medicine | DX: G47.33 Obstructive sleep apnea (adult) (pediatric) (principal); E66.9 Obesity, unspecified; J98.4 Other disorders of lung; Z99.89 Dependence on other enabling machines and devices | CPT/HCPCS: 99212 ==

== ENCOUNTER 2024-11-19 13:14 | Outpatient (AMB) | payer OTHER, SELFPAY ==
--- OUTSIDE RECORDS SUMMARY | 2024-11-13 11:40 | XMS_ITS ---
Author Organization [facility] Address [address] [place] [address] Care Team Providers Care Hospice Care Transitions Coordinator Name Role Phone Shara Verdugo Primary Care Provider Unavailab Royce Goldstein Unavailable [phone] José Heath Unavailable Unavailable REASON FOR VISIT [...] Active Encounters Encounter Location Date Provider Diagnosis [facility] [address] [place] [phone] 11/13/2024 Royce Cunningham Plan Of Treatment No Information Progress Notes * RENETTA GODINEZ LDOB:[birth year] (64 yo F)Acc No.[id number]:11/13/2024 Progress Notes Patient: RENETTA VOSS Provider: Stevo Cunningham MD :1960 A ge:64 Y S ex:Female Date:11/13/2024 Address:[address] [place] [address] [facility] [id number] Pcp:Shara Grimes Subjective: * Chief Complaints: * [...] Date: 11/13/2024 Generated for Hailey galvan/Robinson/Herson on: 11/19/2024 02:19 PM EDT
[2024-11-19 13:28] VITALS: BP 114/52; PULSE 68; BMI 41.6
--- NOTE | 2024-11-19 13:28 | MHC.OFFVIS ---
Vital Signs 11/19/24 13:28 Height 5 ft 2 in Weight 227 lb 8.273 oz BMI 41.6 BP 114/52 L Blood Pressure Location Rt brachial Position Sitting Pulse 68 Pulse Source Pulse Oximeter Intake Visit Reasons: 4m follow up Stave Inspector Required: No Science Tutor: Science Tutor Present Allergies lactose Allergy (Intermediate, Verified 11/19/24 13:31) Vomiting amlodipine Allergy (Mild, Verified 11/19/24 13:31) leg edema liraglutide (From VICTOZA) Allergy (Mild, Verified 11/19/24 13:31) VOMITING RUBI Medication List - Last Reconciled 11/19/24 by EWELINA Martin albuterol sulfate 90 mcg/actuation 2 puffs inhalation Q6H PRN 30 days alprazolam (Xanax) 0.5 mg PO BEDTIME PRN 5 days amitriptyline 25 mg PO BEDTIME 90 days amlodipine 5 mg PO DAILY 90 days apixaban (Eliquis) 5 mg PO BID 90 days ascorbic acid (vitamin C) (Vitamin C With Allie Hips) 500 mg PO DAILY 90 days blood sugar diagnostic As directed cholecalciferol (vitamin D3) 50 mcg PO DAILY 90 days clopidogrel (Plavix) 75 mg PO DAILY commode As directed dapagliflozin propanediol (Farxiga) 10 mg PO DAILY furosemide 40 mg PO BID gabapentin 300 mg PO BID 30 days hydralazine 25 mg PO BID 90 days insulin regular hum U-500 conc 0 - 450 units subcut DAILY PRN lactulose 10 grams (15 mL) PO BEDTIME PRN 30 days metoprolol tartrate 50 mg (2 x 25 mg) PO BID 90 days nitroglycerin mg sublingual pantoprazole 40 mg PO DAILY 90 days [pulse oximeter As directed] rosuvastatin 40 mg PO DAILY 90 days semaglutide (Ozempic) mg subcut sennosides (Senna Laxative) 17.2 mg (2 x 8.6 mg) PO BEDTIME PRN 30 days Shower Chair As directed walker with seat and wheels HPI HPI 4m follow up: Details: Anna is a 64-year-old female past medical history of hypertension, hyperlipidemia, diabetes, obesity, sleep apnea with CPAP use, CAD with coronary stent, status post coronary artery bypass grafting, diastolic Congestive heart failure with CardioMEMS device in place, CKD who presents for follow-up. Today she reports that she has been doing well since her visit in June. She has not had any recurrent hospitalizations. She denies chest discomfort at rest or with activity. No shortness of breath, PND, orthopnea or edema. No concerning heart palpitations, dizziness, presyncope, syncope, falls. Sleeps in a hospital bed with the head of the bed elevated which is her norm. Ambulates with a walker. Admits to being mostly sedentary. Daughter is present. Daughter assists with medications. Not routinely compliant with CardioMEMS readings. [facility] Medical History Congestive heart failure Acute kidney injury superimposed on chronic kidney disease Diabetic foot ulcer Cataract (lens) fragments in eye following cataract surgery, right eye Cataract (lens) fragments in eye following cataract surgery, left eye Acute on chronic renal failure CHF exacerbation Afib Restrictive lung disease CKD (chronic kidney disease) stage 4, GFR 15-29 ml/min Right hemiparesis Cerebrovascular accident (CVA) due to occlusion of left middle cerebral artery Skin lesion Lumbar degenerative disc disease CKD (chronic kidney disease) BRYNN (obstructive sleep apnea) Arthritis Hypercholesteremia CAD (coronary artery disease) Sinusitis Stroke Asthma Hypertension Diabetes Surgical History History of esophagogastroduodenoscopy (EGD) H/O colonoscopy History of bilateral tubal ligation History of heart surgery History of coronary angioplasty with insertion of stent History of cataract surgery H/O right breast biopsy Family History Father Stroke Mother Myocardial infarction Paternal Uncle Cancer Family/Other Breast cancer Social History Household Members: Family Housing: House Are you a primary rn medicare to a significant other at home: No Alcohol intake: never Comment: family at bedside Patient Tobacco Use Status: Never used Tobacco e-Cigarette/Vaping Use: Never Used Second Hand Smoke Exposure: No Advance Directives Date on File: 01/25/22 service: No Current occupational status: unemployed and disabled Sexual orientation: Straight/Heterosexual Gender identity: Female Cognitive needs: Yes Hearing needs: No Vision needs: No Female Reproductive History Menstrual Age of Menarche: 14 Review of Systems Const All systems reviewed & are unremarkable except as noted in HPI and below ENT Denies dizziness Card Denies chest pain, Denies chest pain at rest, Denies chest pain with activity, Denies rapid heart rate, Denies pedal edema, Denies edema, Reports leg edema, Denies lightheadedness, Denies palpitations, Denies dyspnea, Reports dyspnea on exertion and Denies orthopnea Resp Denies cough, Denies dyspnea and Reports dyspnea on exertion GI Denies hematochezia and Denies change in stool character Musc Denies abnormal gait, Denies limited range of motion, Denies muscle cramps, Denies muscle weakness, Denies numbness, Denies radiating pain into limb, Denies stiffness and Denies tingling Neuro Denies abnormal gait, Denies dizziness, Denies numbness and Denies tingling Endo Denies palpitations Physical Exam Vital Signs: Last Vital Signs Pulse 68 11/19/24 13:28 BP 114/52 L 11/19/24 13:28 BMI result Body Mass Index 41.6 Const General: cooperative, healthy appearing, comfortable and no acute distress Orientation/consciousness: patient oriented x3 Neck Neck: Yes normal visual inspection Resp Effort & Inspection: normal respiratory effort Auscultation: clear to auscultation bilaterally, no rales, no rhonchi and no wheezes Cardio Rate: regular rate Rhythm: regular rhythm Heart sounds: S1 normal heart sound present, S2 normal heart sound present, no murmurs and no rubs Neuro General: patient oriented x3 Extrem Other: soft edema lower legs Right > Left Psych Appearance: grossly normal Mental Status: mental status grossly normal Speech and movement: Normal speech and movement present Assessment & Plan Assessment & Plan (1) Chronic heart failure with preserved ejection fraction (HFpEF): Code(s): I50.32 - Chronic diastolic (congestive) heart failure Category: Medical Plan: History of Heart failure preserved ejection fraction which has been difficult to control at times in the past. Has CardioMEMS device in place. This helps to monitor her PA readings to allow for more immediate evaluation and treatment. She is not always compliant with her readings. At times her PA pressures are elevated and her diuretics are temporarily increased for a few days, at my direction. On exam today she does have some leg edema which she states is typical. Otherwise does not appear fluid overloaded. Instructed to send PA readings 2-3 times weekly. Last echo 09/26/2023 showed EF 50%, grade 2 diastolic dysfunction, basal inferior akinetic. Reviewed low-salt diet, ongoing med compliance. No med changes made at this time. Signs and symptoms of heart failure reviewed with her. Continue CPAP use. Cardiology follow-up 6 months, sooner if needed. (2) CAD (coronary artery disease): Code(s): I25.10 - Atherosclerotic heart disease of [place] coronary artery without angina pectoris Category: Medical Plan: History of CAD with prior stenting as well as coronary artery bypass grafting. Nuclear stress test done 01/18/2024 does show mid to distal LAD territory ischemia, mild intensity - being managed medically. No anginal symptoms. If she develops symptoms then further evaluation with cardiac catheterization will be needed. Signs and symptoms of angina reviewed with her. Instructed to notify this office if she has new symptoms or to seek emergency care if symptoms not relieved with rest. Continue aggressive risk factor modification. She is not on aspirin as she is on Eliquis. She continues on Plavix. Continue aggressive blood pressure control- currently with hydralazine, metoprolol, Lasix. Aggressive diabetes management goal hemoglobin A1c less than 7%. Continue rosuvastatin 40 mg daily with LDL goal less than 70 mg/dL. (3) Paroxysmal atrial fibrillation: Code(s): I48.0 - Paroxysmal atrial fibrillation Category: Medical Plan: History of paroxysmal atrial fibrillation. Which has been clinically suppressed. Pulse is very regular on examination today: Clinically in sinus rhythm. Last EKG shows sinus rhythm, left bundle branch block which is not new. Continue metoprolol for heart rate control and Eliquis for anticoagulation. Labs done 10/12/2024 showed hemoglobin 13.9, creatinine 1.79 - similar to prior. (4) Abnormal nuclear stress test: Code(s): R94.39 - Abnormal result of other cardiovascular function study Category: Medical Plan: As above. Continue medical management. (5) Presence of CardioMEMS HF system: Code(s): Z95.818 - Presence of other cardiac implants and grafts Category: Medical Plan: As above. PA monitoring done through our office and documented in this record. (6) CKD (chronic kidney disease) stage 3, GFR 30-59 ml/min: Code(s): N18.30 - Chronic kidney disease, stage 3 unspecified Category: Medical Qualifiers: Chronic kidney disease stage 3 subtype: stage 3b (GFR 30-44) Qualified Code(s): N18.32 - Chronic kidney disease, stage 3b Plan: Follows with Nephrology (7) Left bundle branch block: Code(s): I44.7 - Left bundle-branch block, unspecified Category: Medical Plan: Noted on EKGs, not new. Echo done 08/21/2024 shows EF 55-60%, basal inferior and basal inferior septal segments akinetic, no significant change from prior. Plan Time spent on chart review, documentation, interview and assessment Coding Level of Care Code Est Pt Level 4 (30831) Complex EM visit Add On G2211 Diagnoses Chronic heart failure with preserved ejection fraction (HFpEF) I50.32 CAD (coronary artery disease) I25.10 Paroxysmal atrial fibrillation I48.0 Abnormal nuclear stress test R94.39 Presence of CardioMEMS HF system Z95.818 Stage 3b chronic kidney disease N18.32 Chronic kidney disease stage 3 subtype: stage 3b (GFR 30-44) Left bundle branch block I44.7 Time Spent (min) 30
--- OUTSIDE RECORDS SUMMARY | 2024-11-19 14:19 | XMS_ITS | Encounter Summary ---
Author Organization [facility] Address [address] [place] [address] Phone Care Team Providers Care Carriage Operator Name Role Phone Shara Verdugo MD Primary Care Provider [phone] Encounter Details Date Type Department Care Team (Late st Contact Info) Description 03/14/2022 Telephone [facility] [address] [place] [address] Shara Verdugo MD [address] [place] [address] Social History Tobacco Use Types Packs/Day Years [...] faxed over once complete. Please send to [facility] . Thank you documented in this encounter Plan of Treatment Not on file documented as of this encounter Visit Diagnoses Not on filedocumented in this encounter Care Teams Carriage Operator Relationship Specialty Start Date End Date Shara Verdugo MD [address] [place] [address] PCP - General 05/11/20 documented as of this encounter
--- OUTSIDE RECORDS SUMMARY | 2024-11-19 14:21 | XMS_ITS | Encounter Summary ---
Author Organization [facility] Address [address] [place] [address] Care Team Providers Care Manager Wireless Name Role Phone Unavailable Primary Care Provider [...]
== END 2024-11-19 14:05 | disposition home or self-care (01) ==
LOC: HO.HCS 13:15
PROVIDERS: PCP Internal Medicine; Visit Provider Nurse Practitioner Family
DX: I50.32 Chronic diastolic (congestive) heart failure (principal); I25.10 Atherosclerotic heart disease of native coronary artery without angina pectoris; I48.0 Paroxysmal atrial fibrillation; R94.39 Abnormal result of other cardiovascular function study; Z95.818 Presence of other cardiac implants and grafts; N18.32 Chronic kidney disease, stage 3b; I44.7 Left bundle-branch block, unspecified
CPT/HCPCS: 99214; G2211

== ENCOUNTER → 2024-11-19 13:14 | Outpatient (BNVA) | payer OTHER, SELFPAY | PROVIDERS: PCP Internal Medicine; Visit Provider Nurse Practitioner Family | DX: I50.32 Chronic diastolic (congestive) heart failure (principal); I25.10 Atherosclerotic heart disease of native coronary artery without angina pectoris; I48.0 Paroxysmal atrial fibrillation; R94.39 Abnormal result of other cardiovascular function study; Z95.818 Presence of other cardiac implants and grafts; N18.32 Chronic kidney disease, stage 3b; I44.7 Left bundle-branch block, unspecified | CPT/HCPCS: 99212 ==

== ENCOUNTER → 2024-11-26 23:59 | Outpatient (BNV) | payer OTHER, SELFPAY ==
--- NOTE | 2024-12-06 17:34 | MHC.OFFVIS ---
Intake Visit Reasons: Remote Cardiomems- [facility] Allergies lactose Allergy (Intermediate, Verified 11/19/24 13:31) Vomiting amlodipine Allergy (Mild, Verified 11/19/24 13:31) leg edema liraglutide (From VICTOZA) Allergy (Mild, Verified 11/19/24 13:31) VOMITING RUBI PFSH Medical History Congestive heart failure Acute kidney injury superimposed on chronic kidney disease Diabetic foot ulcer Cataract (lens) fragments in eye following cataract surgery, right eye Cataract (lens) fragments in eye following cataract surgery, left eye Acute on chronic renal failure CHF exacerbation Afib Restrictive lung disease CKD (chronic kidney disease) stage 4, GFR 15-29 ml/min Right hemiparesis Cerebrovascular accident (CVA) due to occlusion of left middle cerebral artery Skin lesion Lumbar degenerative disc disease CKD (chronic kidney disease) BRYNN (obstructive sleep apnea) Arthritis Hypercholesteremia CAD (coronary artery disease) Sinusitis Stroke Asthma Hypertension Diabetes Surgical History History of esophagogastroduodenoscopy (EGD) H/O colonoscopy History of bilateral tubal ligation History of heart surgery History of coronary angioplasty with insertion of stent History of cataract surgery H/O right breast biopsy Family History Father Stroke Mother Myocardial infarction Paternal Uncle Cancer Family/Other Breast cancer Social History Household Members: Family Housing: House Are you a primary hearing care practitioner to a significant other at home: No Alcohol intake: never Comment: family at bedside Patient Tobacco Use Status: Never used Tobacco e-Cigarette/Vaping Use: Never Used Second Hand Smoke Exposure: No Advance Directives Date on File: 01/25/22 service: No Current occupational status: unemployed and disabled Sexual orientation: Straight/Heterosexual Gender identity: Female Cognitive needs: Yes Hearing needs: No Vision needs: No Female Reproductive History Menstrual Age of Menarche: 14 Office Procedures Cardiac Device Check Cardiac Device Check Details: Monitoring period dates: 10/16/24- 11/26/24 Optimal PA pressure range: LOREN goal 30mmhg Procedure code: 85389 BACKGROUND: Anna is implanted with the CardioMEMS PA Sensor.? I use this technology to monitor PA pressures on a weekly basis to ensure patients are within their optimal range to prevent decompensation.? SUMMARY:? I utilized the remote monitoring platform ([facility]) to set optimal targets for pulmonary artery pressure thresholds as part of acute and chronic management of patient?s heart failure. During the period indicated above, I monitored the patient?s pulmonary artery pressures weekly via trend analysis and notification reports which provide alerts when patient?s PA pressures were outside of range to prompt immediate action in medication changes and communications.? The weekly reports are archived in the [facility] system which serve as a parallel record to document weekly PA pressures, medication changes, and clinical notes. I have reviewed readings on 10/18, 10/25, 10/31, 11/08, 11/15, 11/22. Readings have ranged between 25-35mmhg. Has been averaging readings about once to twice weekly. She has been instructed to do them 3 times weekly. 70621 - Remote monitoring of wireless pulmonary artery pressure sensor Procedure code (CPT) selection complete Assessment & Plan Assessment & Plan (1) Presence of CardioMEMS HF system: Code(s): Z95.818 - Presence of other cardiac implants and grafts Category: Medical Plan: monthly report Coding Level of Care Code Procedure Only Diagnoses Presence of CardioMEMS HF system Z95.818 CPT Codes Cardiac Device Check - Cardiac Device 17: 06638 - Remote monitoring of wireless pulmonary artery pressure sensor ([id number])
== END ==
PROVIDERS: PCP Internal Medicine; Visit Provider Nurse Practitioner Family
DX: Z45.09 Encounter for adjustment and management of other cardiac device (principal)
CPT/HCPCS: 93264

== ENCOUNTER 2024-12-09 11:10 | Outpatient (REF) | payer OTHER, SELFPAY ==
--- OUTSIDE RECORDS SUMMARY | 2024-12-09 11:54 | XMS_ITS | Clinical Summary ---
Author Organization [facility] Address [address] [place] [id number] Phone Care Team Providers Care Senior Policy Analyst Name Role Phone Shara Verdugo MD Primary Care Provid er Allergies Active Allergy Reactions Criticality Noted Date Comments Amlodipine 11/20/2023 Other Reaction(s): increases fluid buildup Lactose Diarrhea,Nausea and/ or Vomiting,Nausea And Vomiting 01/22/2018 Liraglutide Nausea and/or Vomiting,Nausea And Vomiting 01/22/2018 Medications ipratropium (ATROVENT HFA) 17 mcg/actuation inhaler Inhale 2 puffs into the lungs 4 (four) times a day. Active ascorbic acid, vitamin C, (VITAMIN C) 500 MG tablet Take 500 mg by mouth daily. Active insulin syringe-needle U-100 0.3 mL 31 gauge x 5/16 Syrg 1 each by Miscellaneous route as needed. Active ferrous sulfate 325 mg (65 mg salamatof iron) tablet Take 325 mg by mouth daily with breakfast. Active amitriptyline (ELAVIL) 25 MG tablet Take 25 mg by mouth nightly at bedtime. Active clopidogrel (PLAVIX) 75 mg tablet Take 75 mg by mouth daily. Active sennosides (SENNA LAX ORAL) Take 2 tablets by mouth nightly at bedtime. 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 200 strip 11 Active furosemide (LASIX) 40 MG tabletIndication s:on hold Indications: on hold Active FARXIGA 10 mg tablet TOME QUYEN TABLETA TODOS LOS D Active acetaminophen (TYLENOL) 500 MG tablet Active lactulose bulk (CONSTULOSE) 10 gram/15 mL solution TAKE 15 MLS POR V A ORAL BEDTIME NEEDED FOR CONSTIPATION FOR 30 DAYS Active ELIQUIS 5 mg tablet Take 1 tablet by mouth 2 (two) times a day. Active gabapentin (NEURONTIN) 300 MG capsule TOME QUYEN C PSULA DOS VECES AL D A FOR 30 DAYS Active hydrALAZINE (APRESOLINE) 25 MG tablet TOME QUYEN TABLETA POR V A ORAL EN LA MA SHARA 1 TABLET EN LA NOCHE AND 1 TABLET AL ACOSTARSE Active cholecalciferol (VITAMIN D3) 2,000 unit capsule Take 2,000 Units by mouth daily. Active metoprolol tartrate (LOPRESSOR) 25 MG tablet Take 25 mg by mouth 2 (two) times a day. Active colchicine (COLCRYS) 0.6 mg tablet Take 0.6 mg by mouth 2 (two) times a day. Active amLODIPine (NORVASC) 5 MG tablet Take 5 mg by mouth daily. 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 Active potassium chloride (K-TAB) 20 mEq TbER ER tablet TOME QUYEN TABLETA POR V A ORAL TODOS LOS D 025 Active nitroglycerin (NITROSTAT) 0.[address] 0.4 mg under the tongue. 10/21/2 024 Active omeprazole (PRILOSEC) 20 MG capsule 1 capsule. 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 Did not make any changes to the pump since I increase the Ozempic. She informs me that the pump is now on oral control so it does corrections of glucose tolerated also shuts down if the glucose is dropping below the reference range. I requested lab work on the last visit in July 2024 if she has not done it so I asked her to just do the lab work prior to the follow-up visit in 3 months. Assessment & Plan (08/13/2024 9:52 AM EDT): I do not have hemoglobin A1c. She did not do the lab work prior to this visit and I could not do a [id number] in the office. Average glucose 233 mg/dL that correlates with a hemoglobin and A1c of 9.7%. However the problem is that she is not bolusing for meals. You could see that on Monday she only boluses once a day sometimes twice a day for the most part. I will prescribe Ozempic which I think will help curb her appetite. She will start out with 0.25 mg weekly and after 4 weeks increase to 0.5 mg. She will continue her insulin pump. She will continue Farxiga. Assessment & Plan (04/19/2024 12:13 PM EST): Improved control the hemoglobin A1c dropped from 8.9 to 8.2%. One of the problems is over eating so I am going to prescribe Mounjaro 2.5 mg weekly. She has no contraindications such as pancreatitis, medullary thyroid carcinoma. I did inform her that the medications associated with nausea, vomiting, diarrhea, constipation. In 3 weeks time if she is doing well I can increase the dose to the next highest level. She should continue with her insulin pump and not making any changes to her insulin regimen since I am adding Mounjaro. She should return in 3 months and repeat hemoglobin A1c prior to the follow-up visit. Assessment & Plan (11/20/2023 12:58 PM EDT): Uncontrolled. Hemoglobin A1c 8.9%. She has a good basal bolus ratio 59% basal and 41% bolus. Even though I believe that she is not bolusing for her meals. I will increase the basal rates during the day but not overnight because sometimes her glucose levels drop overnight even though the pattern does not appear to be the case. Today I spoke with the patient and she has not tried GLP-1 agonists and we should consider this for the future. However since I increased her settings in the basal rates by 0.2 units at 8 AM, 12 PM and 4 PM I would not make any further changes. She will follow-up within 3 months. Assessment & Plan (08/21/2023 1:32 PM EDT): Uncontrolled. Hemoglobin A1c 9.1%. She is using 50% basal and 50% bolus insulin. Glucose levels remain elevated from 8 AM to 1 AM so she needs to increase her basal settings. Will increase settings by 0.2 units each setting. Not changed the carbohydrate ratio or sensitivity. Assessment & Plan (05/18/2023 12:59 PM EST): Uncontrolled. Unfortunately the patient was not getting the appropriate bolus because the maximum bolus was set at 20. I increase this to 25 which is the maximum that she can get with this pump. I have increased the basal settings during the day by 0.2 units at 8 AM, 12 PM, and 4 PM. This is essentially an increase of 9 units/day. Furthermore she will be getting up to 25 units bolus per meal. She can also do quick bolus to add additional bolus doses. Repeat hemoglobin A1c prior to the follow- up visit. Assessment & Plan (02/16/2023 12:00 PM EDT): Uncontrolled having postprandial hyperglycemia we will decrease carbohydrate ratio from 4-3 and the sensitivity from 28-25. Continue same basal insulin. The ratio is postprandial hyperglycemia possibly from inaccurate carbohydrate counting. She will repeat hemoglobin A1c in 3 months return for follow-up in 3 months for Assessment & Plan (11/09/2022 4:26 PM EDT): Uncontrolled. Hemoglobin A1c 8.4%. Poor glycemic control has postprandial hyperglycemia glucose levels are elevated most of the day starting from 9 AM to 3 AM. She is getting enough basal insulin but not enough bolus insulin and this may be due to inaccurate carbohydrate counting. So at this point I am decreasing the carbohydrate ratio to 4 and the sensitivity to 28. She will repeat hemoglobin A1c prior to the follow-up visit. Assessment & Plan (02/16/2022 12:30 PM EDT): Improved glycemic control hemoglobin A1c 7.9%. She still has postprandial glycemia in the evening. I increased the basal settings in the evening 0.2 units at 12 PM and 4 PM. Unfortunately she has had some hypoglycemic episodes and I informed the patient's daughter that she must try to be accurate with the carbohydrate counting and she states that she checks on the Internet is usually home-cooked meals that are the hardest to determine what the carbohydrate intake is.The patient has current severe hypoglycemia. There is significant concern hypoglycemic seizures which can be potentially fatal. I reemphasized to the patient that the use of insulin is high risk therapy that requires intensive monitoring for toxic effects (hypoglycemia, metabolic decompensation) due to the narrow therapeutic index of the medication and other factors (such as age, acute renal insufficiency, variable appetite and use of steroids) therefore close monitoring of blood sugar with regular review is paramount in the safe use of this medication. Assessment & Plan (10/29/2021 10:26 AM EDT): Uncontrolled. Hemoglobin A1c 9.2% she has an average glucose of 242 mg/dL elevated glucose throughout the day. I calculated her carbohydrate ratio at 7 and sensitivity at 30. Her carbohydrate ratio is already set lower than calculated at 5 and the sensitivity set at 33. I do not want to change sensitivity BX because what I am going to do is increase her basal insulin 8 am from 1.2-1.4, 12 PM, from 1.8-240, and at 4 PM from 1.6-1.7. I do not want to increase it too much in the evening because her glucose are going down overnight so far improve her glycemic control I do not want her to have hypoglycemia overnight. Assessment & Plan (06/09/2021 3:49 PM EST): Based on the CGM and now appears that the patient is having high glucose overnight. In the past she was apparently having hypoglycemia so that her daughter disconnected the pump in the evening. Now she is getting approximately 30 units of more of insulin and she still has poor glycemic control and her glucose levels are quite elevated overnight. She did have 1 hypoglycemic episode unclear why that was since she eats very high carbohydrate content foods approximately 500 g of carbohydrate per day which is very excessive. She is using mostly bolus insulin 65% bolus and only 35% basal so 1 would think that she needs more basal insulin. And I did increase the basal insulin overnight from 0.8 units to 1 unit/h. But I also decreased the carbohydrate ratio to 5 throughout the day because she is having postprandial hyperglycemia. I will have her return for follow-up in 6 weeks. Assessment & Plan (03/16/2021 2:51 PM EST): Uncontrolled. However she has had improvement in hemoglobin A1c decreasing from 10.02 7.5%. She was having hypoglycemia overnight so her daughter disconnected the pump. However the pump continue to run so the total daily dose of insulin is inaccurate. She has postprandial hypoglycemia starting at noon but she has not been using insulin until from 12 AM to 5:06 AM the following morning. So she could develop postprandial hyperglycemia because of this. It is possible also that she needs to adjust her carbohydrate ratio and sensitivity in the evening or probably needs more basal insulin in the evening. I think that I should not make any other changes then decreasing the basal rate to 0.8 units overnight. However what I am going to do is add a different setting. So from 12 AM to 8 AM she will be using 0.8 units and from 8 AM to 12 PM she will use 1.2 units/h and everything else will remain the same at 1 change the carbohydrate ratio sensitivity. The patient has current severe hypoglycemia. There is significant concern hypoglycemic seizures which can be potentially fatal. I reemphasized to the patient that the use of insulin is high risk therapy that requires intensive monitoring for toxic effects (hypoglycemia, metabolic decompensation) due to the narrow therapeutic index of the medication and other factors (such as age, acute renal insufficiency, variable appetite and use of steroids) therefore close monitoring of blood sugar with regular review is paramount in the safe use of this medication. Assessment & Plan (02/02/2021 1:00 PM EDT): Uncontrolled. She has average glucose of 222 mg/dL but she is only getting a maximum of 10 unit bolus for meals even though the pump calculates 20 or 29 units. I increase the bolus dose to 20. However I think that she may end up with hypoglycemia overnight if her glucose levels are better controlled in the evening. So I decreased her basal rate from 1.5-1.2 at 12 AM to 12 PM. She will return for follow-up in 6 weeks. Assessment & Plan (12/03/2020 12:53 PM EDT): Uncontrolled. She is using 55% basal insulin and 45% bolus insulin. But her glucose levels are usually elevated throughout the day. She eats a lot of carbohydrates and this is one of the reasons. I recalculated the carbohydrate ratio of 6.85 and sensitivity from 28-33. So the first thing I will do is decrease the carbohydrate ratio to 7 and the sensitivity to 33. The target blood glucose remain at 120 mg/dL. She will get more insulin with food. On the follow-up visit we may have to adjust her basal insulin because she will probably get more bolus insulin and for type II diabetic we want 60% basal and 40% bolus. So potentially I could have also increase the basal insulin but I felt that the carbohydrate ratio and sensitivity were way off so I prefer to do that today. Assessment & Plan (10/29/2020 5:21 PM EDT): Uncontrolled based on the last hemoglobin A1c had current glucose levels. But she was not using her insulin pump because there was effective for her. She received her new pump and this was set up by the diabetic educators with the previous settings. One of the problems is that she was losing glucose information from the freestyle carrol CGM. The CGM keeps falling off because of increased sweating. Furthermore this CGM is not linked to the tandem T slim. She needs the Dexcom CGM which is linked to the tandem T slim pump so that glucose levels automatically transfer. This will be beneficial for her improved glycemic control. I have asked that catheterization be done. Assessment & Plan (08/31/2020 2:31 PM EDT): Uncontrolled her last hemoglobin A1c is 10.3%. But I do not think that the pump is being followed. The CGM shows that the glucose levels are not being documented or monitored. We will loosely most of the data in the very little data that I have 1 day the glucose levels are completely elevated during the same timeframe the next day they are low. It does not make any sense and I think that they just not doing what they are supposed to do. So the patient really cannot handle the insulin pump on her own she relies on her daughter. Is actually better than what he used to be in a sense when she was on MDI insulin therapy but the reason why there is no control was because there is no management and I spoke with the patient's daughter and asked her to be more consistent in managing the right diabetes and make sure that the glucose levels are checked frequently. I am not making any changes. Assessment & Plan (07/27/2020 2:45 PM EDT): Uncontrolled. I increase the basal rates from 12 AM to 5 PM to 1.2 units/h and from 5 PM to 12 AM to 1.4 units/h that amounts to 8 units additionally extra for basal insulin. I decrease the carbohydrate ratio from 12-10 and the sensitivity from 50-44. The target blood glucose stays the same. She needs more insulin in general. I will give her a follow-up visit in 5 weeks. Assessment & Plan (05/28/2020 3:19 PM EST): Uncontrolled. She has elevated glucose levels but [...] carrol CGM hopefully she can get this. Assessment & Plan (03/10/2020 1:00 PM EST): Uncontrolled hemoglobin A1c 8.9% but the patient states that she is checking 4 times a day and entering the numbers in her pump and also bolusing for carbohydrate intake and I tested her using the pump and she is doing it properly. Yet the results of her bolusing for carbs or even glucose levels are not entering the pump. This is why she needs the Dexcom continuous glucose meter because he will be directly linked with the pump. Furthermore I can follow with her glycemic levels. I noticed that the pump in the meter both at the wrong time and I corrected this. I am not going make any changes because based on what I see she is not bolusing regularly. So she needs to do this and I am going to prescribe the Dexcom CGM again it is vital for us to use this device to help her bolus because she is monitoring her she is supposed to monitor glucose up to 4 times a day so that she can bolus with meals based on carbohydrate ratio and sensitivity. Assessment & Plan (06/27/2019 2:11 PM EST): Uncontrolled. The patient is having hypoglycemia overnight and her daughter is removing the pump. So I decreased the basal setting from 1 unit to 0.8 units from 12 AM to 12 PM. She also has postprandial hyperglycemia in the afternoon. By lunchtime her glucose increased because she is not getting the basal insulin and then she eats and has postprandial hyperglycemia. I decreased the carbohydrate ratio from 15- 12. The sensitivity is fine at 50 I did calculate a value of 52. She actually now needs more bolus insulin and less basal insulin she is getting 68% basal insulin and only 32% bolus. Assessment & Plan (05/16/2019 3:34 PM EST): Uncontrolled. Based on glycemic levels per her hemoglobin A1c is 6.8%. This result is falsely low because she is anemic. So we have to gauge as of by the glycemic control on the meters which for the most part average in the 200 range throughout the day. The patient is highly insulin resistant she has an insulin pump but she does better with the insulin pump and requires Humulin U 500 insulin. I have renewed her Humulin U 500 I have advised the patient to speak with the diabetic educators to set her up pump at her former settings. This will be used with Humulin U 500 but for the meantime she should continue Lantus and Humalog at the current settings until the pump is reinstated. Assessment & Plan (03/14/2019 12:41 PM EST): Uncontrolled. The patient is now Humulin U 500 insulin via her pump. She had a glucose level was low at 75 mg which she is symptomatic. She has not had any hypoglycemia. Her glucose this morning was apparently 200 mg/dL. This is elevated so she is going to need to adjust her insulin regimen. However based on 1 days actually half a day of Humulin U 500 I think we should not make any changes. Sometimes people glucose toxic and it takes a few days and will see that the glucose levels decreased rapidly so best to maintain the insulin regiment the same for now. Assessment & Plan (01/31/2019 11:11 AM EDT): As indicated in the HPI this is a patient who had frequent hypoglycemic episodes requiring 2 hospitalizations. She had a UTI. Furthermore she had acute renal insufficiency requiring to discontinue metformin. It is unclear if her renal function would recuperate but is probably best not to resume metformin even if it does improve. At this point her glycemic levels are high. So I decided to increase the basal rate only. I increase the basal rate at 12 AM to 5 PM by 0.25 units from 2.5 to 2.75 units. From 5 PM to 12 AM I also increase the by 0.25 units from 2.75 to 3.0 units/h. I did not change the carbohydrate ratio and the sensitivity because concerned that she may develop hypoglycemia again. The reason for this is if she has renal insufficiency she tends to retain insulin and is not metabolizer excreted resulting in low glucose levels so we should go gradually in terms of increasing insulin again. However this morning her fasting glucose was over 200 and in the evening last night after changing the settings they were in the 400 range. So I will give her a follow-up appointment in 6 weeks. She is also going to be following with the clinical unit educator. Assessment & Plan (01/08/2019 12:43 PM EDT): I will have to say that she has fair control. Her hemoglobin A1c is 6.7% but we can go by this because she is anemic. The average glucose is 148. However she has hypoglycemia especially in the afternoon and this is not good. This is actually worse than having elevated glucose levels. She does have elevations of 33% but this is above 150 mg/dL and really I would be concerned more about glucose above 180 mg/dL so probably that setting could be change as well. However I do not know how to do this and I will leave it up to the clinical unit educator. At this point I will change her sensitivity from 8:11 AM to 5 PM increase in it from 10-12 so that she gets a little bit less insulin based on her glucose levels and hopefully this will help with preventing hypoglycemia. If this does not work we could also possibly decrease the basal insulin during this timeframe. The active insulin time is set for 3 hours this could also be changed but I rather not do that. Of course we are assuming that the carbohydrate counting is being done correctly because if this is being overestimated it can result in hypoglycemia. As for the CGM I have placed the order for this device and will send it to the DME. I will give her a follow-up appointment in 6 weeks. Decided to decrease the basal rate also to 3.5 units/h from 11 AM to 5 PM. Assessment & Plan (09/10/2018 12:04 PM EDT): Uncontrolled. Her hemoglobin A1c is 6.4% but this is not accurate the patient is anemic. She has very poor glycemic control though his sugars average 289. She is using 235 units of insulin daily requiring her to change her infusion site on the second day. So she is using more infusion sites then she gets prescribed this is going to be a problem with the insurance company. She requires Humulin U 500 insulin. She was on this in the past and I have prescribed it. I advised the patient not to use it until she sees a clinical unit educator to make changes to her pump. She also needs to talk to the clinical unit educator about doing the paperwork for the G5 not the G6 CGM. Assessment & Plan (06/12/2018 10:48 AM EST): Uncontrolled. The hemoglobin A1c is 6.1% but falsely low due to anemia. I would not change the regimen because this actually difficult to change the regimen when I do not have how much prandial insulin she is currently using. If she is not doing horribly she does have more postprandial hyperglycemia than levels. She will do better when she gets the tandem T slim pump. The patient's daughter informs me that the clinical unit educator requires old notes and lab work and I will have this faxed to [facility]. Assessment & Plan (02/21/2018 10:35 AM EDT): Uncontrolled. I will add Actos 15 mg in addition to her current insulin regimen. She does have trace edema and she does have anemia but she has no history of congestive heart failure, osteoporosis or macular edema. We do have to monitor for increased swelling of extremities as this medication can result in heart failure. Eventually I want her to see the clinical unit educator I want to get her on the tandem T slim pump. I would like her to monitor 4 times a day which she still not doing. I think CGM will help her in the long run. At this point I do not want to request the Preisbockyle carrol CGM because is not linked to the Tandem T Slim pump. Assessment & Plan (01/22/2018 10:17 AM EDT): Uncontrolled. Her hemoglobin A1c in the office today is 9.0%. She is using 90 units of basal insulin but I suspect that she is not always bolusing for her meals because it is much more difficult when she has to do MDI insulin administration. She possibly is not counting carbohydrates correctly she is definitely answering less carbohydrates into Omni pod non food receiving clerk. I want her to see the clinical unit educator again. If we can change her pump to a T slim pump it would be best because she is using a lot of insulin and tends to run out of pods. I advised her that she must monitor her glucose levels 4 times a day and she needs to schedule an appointment with the clinical unit educator so that we can start paperwork on her. If she does not do as she supposed to in terms of monitoring glycemic levels is just going to make it more difficult for us to deal with her insurance company and get the pump approved. I believe that once the patient has her insulin pump she would do better overall. Unfortunately I cannot use GLP-1 agonist for this patient because she cannot tolerate them. The only one that she could tolerate was Tanzeum which is no longer in the market. I can consider other medications but I really do not have any lab work and I need to obtain this first before making any decisions. In the meantime I am not changing her regimen she should continue metformin and her current insulin therapy. Hyperlipidemia LDL goal <70 01/22/2018 Assessment & Plan (12/03/2024 12:23 PM EDT): Controlled LDL 32 continue rosuvastatin 40 no changes required Assessment & Plan (08/13/2024 9:59 AM EDT): Controlled. LDL 32 mg/dL with rosuvastatin continue current regimen. Assessment & Plan (04/19/2024 12:09 PM EST): Controlled. LDL 32 mg/dL on rosuvastatin 40 mg no changes required. Assessment & Plan (11/20/2023 12:59 PM EDT): Controlled. LDL 32 mg/dL continue rosuvastatin 40 mg. Assessment & Plan (08/21/2023 1:33 PM EDT): Controlled. LDL 34 mg/dL on rosuvastatin no changes. Assessment & Plan (05/18/2023 11:41 AM EST): Controlled. LDL 34 mg/dL on rosuvastatin 40 mg no changes required. Assessment & Plan (02/16/2023 12:01 PM EDT): Controlled. LDL is 34 mg/dL continue rosuvastatin 40 mg no changes required. Assessment & Plan (11/09/2022 3:45 PM EDT): Controlled. LDL 34 mg on rosuvastatin 40 mg no changes required. Assessment & Plan (02/16/2022 12:01 PM EDT): Controlled based on LDL 30 mg/dL when last checked. She should continue rosuvastatin 40 mg. She needs to repeat lipid that was requested on the last visit. Assessment & Plan (06/09/2021 3:48 PM EST): Controlled. LDL 30 mg/dL continue rosuvastatin 40 mg. No changes. Assessment & Plan (03/16/2021 12:31 PM EST): Controlled based on LDL 30 mg/dL, no changes to current medications. Assessment & Plan (02/02/2021 12:51 PM EDT): Controlled. LDL 30 mg/dL. Continue rosuvastatin no changes. Assessment & Plan (12/03/2020 12:32 PM EDT): LDL control suicide 40 mg LDL was 30 mg. No changes. Assessment & Plan (10/29/2020 5:19 PM EDT): Controlled. LDL 30 on rosuvastatin 40 mg no changes. Assessment & Plan (08/31/2020 2:15 PM EDT): Controlled. LDL 30 mg/dL on rosuvastatin 40 mg no changes. Assessment & Plan (07/27/2020 2:27 PM EDT): Controlled LDL 40 mg/dL on rosuvastatin but triglycerides are elevated and this may be due to poor glycemic control. Would not make any changes. Do have to try to manage the glucose better. Assessment & Plan (05/28/2020 2:55 PM EST): Controlled based on the last LDL of 35 mg/dL. She is on rosuvastatin 40 mg. She has an order for lipid panel that she has not done she needs to get this done. Assessment & Plan (03/10/2020 12:30 PM EST): Requested this previously. She is on rosuvastatin sonographically changes I reminded her that the lipid panel needs to be checked. Assessment & Plan (06/27/2019 2:13 PM EST): I do not have a recent LDL level this is a patient with coronary artery disease to myocardial infarction and CVA she needs to have an LDL of 55 mg/dL or less she is currently she is on rosuvastatin 40 mg I requested a lipid panel. Assessment & Plan (09/10/2018 12:03 PM EDT): Controlled her LDL was 35 mg/dL continue rosuvastatin. Assessment & Plan (06/12/2018 10:48 AM EST): Uncontrolled the LDL is 107 mg/dL after changing to Crestor 40 mg but she checked the levels a little bit too soon and I will repeat them and if they remain elevated we will have to add another agent. Assessment & Plan (02/21/2018 10:36 AM EDT): Uncontrolled. LDL was 107 mg/dL she is on atorvastatin 80 and is compliant with the medication. I will stop atorvastatin and prescribe Crestor 40 mg. Repeat lipid panel in 3 months. Assessment & Plan (01/22/2018 10:14 AM EDT): I do not have a most recent lipid panel I will request a lipid panel she should continue atorvastatin 80 mg daily. Essential hypertension 01/22/2018 Assessment & Plan (10/29/2020 5:19 PM EDT): Controlled. No changes. Urine microalbumin was elevated likely due to poor diabetes control. She is on lisinopril for renal protection. Assessment & Plan (08/31/2020 2:14 PM EDT): Controlled on current medications no changes. Assessment & Plan (07/27/2020 2:49 PM EDT): Controlled on current medications no changes. Assessment & Plan (05/28/2020 2:54 PM EST): Systolic blood pressure is high today. Previously [...] creatinine ratio which she has not done. Assessment & Plan (03/10/2020 12:23 PM EST): Controlled continue current medications no changes. Assessment & Plan (06/27/2019 2:12 PM EST): Controlled on current medications no changes. Assessment & Plan (01/22/2018 10:14 AM EDT): Fair control with amlodipine, carvedilol and isosorbide mononitrate no changes. 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, with long-term current use of insulin (Primary Dx); Hyperlipidemia LDL goal <70 10/15/2024 Refill [facility] [address] [place] [address] Orlin Shirley DO Medication Refill 09/11/2024 Telephone [facility] [address] [place] [address] [place] [address] Laura Chan RN pump setup (Cx appt) from Last 3 Months Immunizations Immunization Administration Dates Next Due COVID-19 (Pre-02/20) Moderna Vaccine, mRNA, PF 0 08/19/2020 Family History Medical History Relation Comments Diabetes Brother 1 No Known Problems Brother 2 Carpal tunnel syndrome Brother 3 Stroke Father No Known Problems Maternal Grandfather Diabetes Maternal Grandmother Coronary artery disease Mother Heart disease Paternal Grandfather No Known Problems Paternal Grandmother Cancer Paternal Uncle Diabetes Sister 1 Stroke Sister 1 Coronary artery disease Sister 2 Diabetes Sister 2 Coronary artery disease Sister 3 Diabetes Sister 3 Relation Status Comments Brother 1 Alive Brother 2 Alive Brother 3 Alive Father Maternal Grandfather Maternal Grandmother Mother Paternal Grandfather Paternal Grandmother Paternal Uncle Alive Sister 1 Alive Sister 2 Alive Sister 3 Alive Social History Tobacco Use Types Packs/Day Years Used Date Smoking Tobacco: Never Smokeless Tobacco: Never Tobacco Cessation:Counseling Given: Not Answered Alcohol Use Standard Drinks/Week Comments No 0 (1 standard drink = 0.6 oz pur e alcohol) Education Answer Date Recorded Are you interested in more education? Not on alex e 08/26/2022 Are you concerned about learning? Not on file 08/26/2022 No 08/26/2022 No 08/26/2022 Digital Access Answer Date Recorded No 09/20/2022 No 09/20/2022 Reliable internet access at home? Not on file 09/20/2022 Device with a working camera? Not on file Comments Unknown Sex and Gender Information Value Date Recorded Sex Assigned at Not on file Legal Sex Female 1:55 PM EDT Gender Identity Not on file Sexual Orientation Not on file Last Filed Vital Signs Vital Sign Reading Time Taken Comments Blood Pressure 134/84 12/03/2024 11:53 AM EDT Pulse 76 12/03/2024 11:53 AM EDT Temperature 36.3 C (97.4 F) 12/03/2024 11:53 AM EDT Respiratory Rate - - Oxygen Saturation 98% 12/03/2024 11: 53 AM EDT Inhaled Oxygen Concentration - - Weight 101.5 kg (223 lb 12.8 oz) 2024 11:53 AM EDT Height 158 cm (5' 2.21 ) 12/03/2024 11: 53 AM EDT Body Mass Index 40.66 12/03/2024 11:53 AM EDT Plan of Treatment Upcoming Encounters Date Type Department Care Team (Late st Contact Info) Description 04/01/2025 12:10 PM EST Office Visit [facility] [address] [place] [id number] Orlin Shirley DO [address] [place] [id number] [email or web address] Health Maintenance Due Date Last Done Comments DEPRESSION SCREENING 1973 HEPATITIS C SCREENING 08/06/1979 HIV ONE-TIME SCREENING (18-65 YEARS) 08/06/1979 PAP SMEAR 1982 MAMMOGRAM 2001 COLOGUARD 2006 COLONOSCOPY 2006 COLORECTAL CANCER SCREENING 2006 FIT TEST 2006 FOBT 2006 SIGMOIDOSCOPY 2006 VIRTUAL COLONOSCOPY 2006 ZOSTER VACCINES (1 of 2) 08/06/2011 DIABETIC EYE EXAM 01/22/2018 PNEUMOCOCCAL VACCINES (50+ years) (2 of 2 - PCV) 04/04/2020 04/04/2019, 03/04/2016, 11/18/2013 RSV VACCINE (1 - Risk 60-74 years 1-dose series) 2021 CREATININE LEVEL 11/09/2023 11/08/2022, 02/19/2018 POTASSIUM LEVEL 11/09/2023 11/08/2022, 02/19/2018 COVID-19 VACCINE ( season) 2023 05/09/2021, 09/16/2020, 08/19/2020 URINE MICROALBUMIN/CREATININE RATIO 11/19/2024 11/20/2023, 11/08/2022, 07/24/2020, Additional history exists HEMOGLOBIN A1C 03/05/2025 12/03/2024, 07/30, 04/19/2024, Additional history exists BLOOD PRESSURE 06/05/2025 12/03/2024 Adult Td,Tdap Booster 03/04/2026 03/04/2016 SMOKING STATUS SCREENING (Once After 26 Yrs) Completed 08/13/2024 HEPATITIS A VACCINES Aged Out No long er eligible based on patient's age to complete this topic HIB VACCINES Aged Out No longer eligi ble based on patient's age to complete this topic MENINGOCOCCAL VACCINES (ACWY) Aged Out No longer eligible based on patient's age to complete this topic MENINGOCOCCAL VACCINES (B) Aged Out N o longer eligible based on patient's age to complete this topic Medical Devices Not on file Procedures Procedure Name Priority Date/Time Associated Diagnosis Comments POCT HEMOGLOBIN A1C Routine 12/03/2024 1 2:18 PM EDT 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, with long-term current use of insulin MICROALBUMIN/CREATINI NE RATIO, RANDOM URINE Routine 11/20/2023 8:41 AM EDT 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, with long-term current use of insulin COMPREHENSIVE METABOLIC PANEL Routine 11/08/2022 10:01 AM EDT 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, with long-term current use of insulin from Last 3 Months or Most Recently Relevant to Health Maintenance Results * (ABNORMAL) POCT Hemoglobin A1c (12/03/2024 12:18 PM EDT) Hemoglobin A1c 8.3(A) 4.2 - 5.6 % Other 12/03/2024 12:1 8 PM EDT Orlin Shirley DO POINT OF CARE TEST ORDERABLES Fi nal Result * (ABNORMAL) Microalbumin/creatinine ratio, random urine (11/20/2023 8:41 AM EDT) URINE MICROALBUMIN 45.0(H) 0 - 2.3 mg/dL [facility] URINE CREATININE 88 mg/dL [facility] MICROALB/CRE RATIO 511.4(H) 0 - 20 mg/g Cre [facility] Urine (Urine) 11/20/2023 8:4 1 AM EDT 11/20/2023 8:44 AM EDT Orlin Shirley DO URINE ORDERABLES Final Result Performing Organization Address City/State/[facility] Co de Phone Number [address] [address] * (ABNORMAL) Comprehensive metabolic panel (11/08/2022 10:01 AM EDT) SODIUM 142 133 - 146 mmol/L [facility] POTASSIUM 4.8 3.3 - 5.1 mmol/L [facility] CHLORIDE 101 96 - 108 mmol/L [facility] CO2 35 21 - 35 mmol/L [facility] BUN 22(H) 6 - 19 mg/dL [facility] CREATININE 1.50 0.5 - 1.5 mg/dL [facility] GLUCOSE 80 70 - 99 mg/dL [facility] ALBUMIN 4.0 3.9 - 4.8 g/dL [facility] TOTAL PROTEIN 8.2(H) 6.5 - 8.0 g/dL [facility] CALCIUM 9.6 8.4 - 10.3 mg/dL [facility] ALKALINE PHOSPHATASE 57 39 - 117 U/L [facility] TOTAL BILIRUBIN 0.3 0.0 - 1.2 mg/dL [facility] AST 26 0 - 37 U/L [facility] ALT 20 0 - 40 U/L [facility] GLOBULIN 4.2 1 - 4.8 g/dL [facility] EGFR 39(L) >59 mL/min/1.7 3m2 [facility] Comment:Estimated glomerular filtration rate calculated using the CKD-EPI refit equation. ANION GAP 11 10 - 20 mmol/L [facility] Blood 11/08/2022 10:0 1 AM EDT 11/08/2022 10:09 AM EDT Orlin Shirley DO LAB BLOOD ORDERABLES Final Resul t [facility] [address] [place] [address] from Last 3 Months or Most Recently Relevant to Health Maintenance Insurance ACO ACO ACO ACO ACO ACO ACO ACO ACO Care Teams Senior Policy Analyst Relationship Specialty Start Date End Date Shara Verdugo MD [address] [place] [address] PCP - General Internal Medicine 01/15/18 Additional Source Comments The information contained in this document represents components of the legal health record. It is not the complete legal health record.[facility]
--- OUTSIDE RECORDS SUMMARY | 2024-12-09 11:54 | XMS_ITS | Encounter Summary ---
Author Organization [facility] Address [address] [place] [address] Phone Care Team Providers Care Renewals Manager Name Role Phone Shara Verdugo MD Primary Care Provider [phone] Encounter Details Date Type Department Care Team (Late st Contact Info) Description 03/14/2022 Telephone [facility] [address] [facility] [address] [place] [address] Shara Verdugo MD [address] [place] [address] Social History Tobacco Use Types Packs/Day Years [...] faxed over once complete. Please send to [facility] . Thank you documented in this encounter Plan of Treatment Not on file documented as of this encounter Visit Diagnoses Not on filedocumented in this encounter Care Teams Renewals Manager Relationship Specialty Start Date End Date Shara Verdugo MD [address] [place] [address] PCP - General 05/11/20 documented as of this encounter
--- OUTSIDE RECORDS SUMMARY | 2024-12-09 11:54 | XMS_ITS | Encounter Summary ---
Author Organization [facility] Address [address] [place] [address] Care Team Providers Care Marketing Reporting Analyst Name Role Phone Unavailable Primary Care Provider [...]
[2024-12-09 12:11] LABS: Appearance Urine Clear; Glucose Urine UA >=1000 mg/dL (Negative); PH 7.0 (5.0-9.0); Specific Gravity - Urine 1.015 (1.005-1.025); UMIC TRIGGER UA YES
[2024-12-09 12:29] LABS: Anion Gap 12 (12-20); Blood Urea Nitrogen 20 mg/dL (9-16); Calcium 9.2 mg/dL (8.4-10.2); Carbon Dioxide 35 mmol/L (22-29); Chloride 100 mmol/L (96-108); Estimated Glomerular Filt Rate 30; Potassium 3.9 mmol/L (3.3-5.1); Sodium 143 mmol/L (135-145)
== END 2024-12-09 11:11 | disposition home or self-care (01) ==
LOC: HO.LAB 11:10
PROVIDERS: PCP Internal Medicine; Visit Provider Internal Medicine Hypertension Specialist
DX: I12.9 Hypertensive chronic kidney disease with stage 1 through stage 4 chronic kidney disease, or unspecified chronic kidney disease (principal); N18.32 Chronic kidney disease, stage 3b
CPT/HCPCS: 36415; 80048; 81001

== ENCOUNTER 2024-12-10 09:53 | Outpatient (AMB) | payer OTHER, SELFPAY ==
--- OUTSIDE RECORDS SUMMARY | 2024-11-13 11:40 | XMS_ITS ---
Author Organization [facility] Address [address] [place] [address] Care Team Providers Care Development Director Name Role Phone Shara Verdugo Primary Care Provider Unavailab Royce Goldstein Unavailable [phone] José Heath Unavailable Unavailable REASON FOR VISIT [...] Active Encounters Encounter Location Date Provider Diagnosis [facility] [address] [place] [phone] 11/13/2024 Royce Cunningham Plan Of Treatment No Information Progress Notes * RENETTA GODINEZ LDOB:[birth year] (64 yo F)Acc No.[id number]:11/13/2024 Progress Notes Patient: RENETTA VOSS Provider: Stevo Cunningham MD :1960 A ge:64 Y S ex:Female Date:11/13/2024 Address:[address] [place] [address] [facility] [place] [id number] Pcp:Shara Grimes Subjective: * Chief Complaints: * [...] Cunningham MD Date: 0 11/13/2024 Generated for Hailey galvan/Robinson/Angeitting on: 0 12/10/2024 10:40 AM EDT
--- NOTE | 2024-12-10 09:59 | HO.NEPHOV ---
Vital Signs 12/10/24 10:00 Height 5 ft 2 in Weight 226 lb BMI 41.3 BP 110/50 L Blood Pressure Location Lt brachial Position Sitting Pulse 63 Pulse Source Pulse Oximeter Pulse Oximetry (%) 94 Oxygen Delivery Method Room Air Intake Visit Reasons: FU/ LVM Casino Banker Required: No Casino Banker Services: Casino Banker Offered & Declined (Daughter will translate) Accompanied by: Daughter Allergies lactose Allergy (Intermediate, Verified 12/10/24 10:03) Vomiting amlodipine Allergy (Mild, Verified 12/10/24 10:03) leg edema liraglutide (From VICTOZA) Allergy (Mild, Verified 12/10/24 10:03) VOMITING RUBI Medication List - Last Reconciled 12/10/24 by Petar Stevens MD albuterol sulfate 90 mcg/actuation 2 puffs inhalation Q6H PRN 30 days alprazolam (Xanax) 0.5 mg PO BEDTIME PRN 5 days amitriptyline 25 mg PO BEDTIME 90 days amlodipine 5 mg PO DAILY 90 days apixaban (Eliquis) 5 mg PO BID 90 days ascorbic acid (vitamin C) (Vitamin C With Allie Hips) 500 mg PO DAILY 90 days blood sugar diagnostic As directed cholecalciferol (vitamin D3) 50 mcg PO DAILY 90 days clopidogrel (Plavix) 75 mg PO DAILY commode As directed dapagliflozin propanediol (Farxiga) 10 mg PO DAILY furosemide 40 mg PO BID gabapentin 300 mg PO BID 30 days hydralazine 25 mg PO BID 90 days insulin regular hum U-500 conc 0 - 450 units subcut DAILY PRN lactulose 10 grams (15 mL) PO BEDTIME PRN 30 days metoprolol tartrate 50 mg (2 x 25 mg) PO BID 90 days nitroglycerin mg sublingual pantoprazole 40 mg PO DAILY 90 days [pulse oximeter As directed] rosuvastatin 40 mg PO DAILY 90 days semaglutide (Ozempic) mg subcut sennosides (Senna Laxative) 17.2 mg (2 x 8.6 mg) PO BEDTIME PRN 30 days Shower Chair As directed walker with seat and wheels HPI Comments Details: 62-year-old woman with a history of longstanding hypertension diabetes mellitus and obesity with CKD. She was accompanied by her daughter.Denies any new complaints. No urinary symptoms. She recently had an episode of gout and she completed a short course of colchicine. 09/05/23; Accompanied by daughter;Still has edema ; No dyspnea; K was 2.6 on 08/20/23 !! 10/17/23:Doing better lost few pounds; K was 3.3 01/11/24 ;Doing well ;No dyspnea;Cr stable 05/13/24;c/o Chest pain x 2 days ;Dyspnea on exertion- with walking; No cough; No sweating 10/04/2024. Recently seen by the Gynecology. She had a urinalysis which showed microhematuria. She also had UTI at the time. She has been referred for further management. At present she has no specific symptoms or signs of UTI Accompanied by her daughter 12/10/24 Ozempic increased No weight loss yet [facility] Medical History Congestive heart failure Acute kidney injury superimposed on chronic kidney disease Diabetic foot ulcer Cataract (lens) fragments in eye following cataract surgery, right eye Cataract (lens) fragments in eye following cataract surgery, left eye Acute on chronic renal failure CHF exacerbation Afib Restrictive lung disease CKD (chronic kidney disease) stage 4, GFR 15-29 ml/min Right hemiparesis Cerebrovascular accident (CVA) due to occlusion of left middle cerebral artery Skin lesion Lumbar degenerative disc disease CKD (chronic kidney disease) BRYNN (obstructive sleep apnea) Arthritis Hypercholesteremia CAD (coronary artery disease) Sinusitis Stroke Asthma Hypertension Diabetes Surgical History History of esophagogastroduodenoscopy (EGD) H/O colonoscopy History of bilateral tubal ligation History of heart surgery History of coronary angioplasty with insertion of stent History of cataract surgery H/O right breast biopsy Family History Father Stroke Mother Myocardial infarction Paternal Uncle Cancer Family/Other Breast cancer Social History Household Members: Family Housing: House Are you a primary healthcare translator to a significant other at home: No Alcohol intake: never Comment: family at bedside Patient Tobacco Use Status: Never used Tobacco e-Cigarette/Vaping Use: Never Used Second Hand Smoke Exposure: No Advance Directives Date on File: 01/25/22 service: No Current occupational status: unemployed and disabled Sexual orientation: Straight/Heterosexual Gender identity: Female Cognitive needs: Yes Hearing needs: No Vision needs: No Female Reproductive History Menstrual Age of Menarche: 14 Physical Exam Vital Signs: Last Vital Signs Pulse 63 12/10/24 10:00 BP 110/50 L 12/10/24 10:00 Pulse Ox 94 12/10/24 10:00 Oxygen Delivery Method Room Air 12/10/24 10:00 BMI result Body Mass Index 41.3 Comfortable Neck supple no JVD. Lungs entry equal no rales. Heart S1-S2 heard no gallop or rub. Abdomen soft nontender. Neuro alert awake oriented. No asterixis. Extremities 1+ edema. Results Reviewed Nephrology Results: Hgb, (12.0-16.0) 13.9 g/dl 10/12/24 WBC, (4.8-10.8) 7.2 X10*3/uL 10/12/24 Plt Count, (160-400) 199 X10*3/uL 10/12/24 Sodium, (135-145) 143 mmol/L 12/09/24 Potassium, (3.3-5.1) 3.9 mmol/L 12/09/24 Chloride, (96-108) 100 mmol/L 12/09/24 Carbon Dioxide, (22-29) 35 mmol/L H 12/09/24 BUN, (9-16) 20 mg/dL H 12/09/24 Creatinine, (0.5-1.4) 1.72 mg/dL H 12/09/24 Calcium, (8.4-10.2) 9.2 mg/dL 12/09/24 Urine Protein, (Neg-Trace) 100 (2+) mg/dL H 12/09/24 Renal US 10/15/24 Assessment & Plan Assessment & Plan (1) CKD (chronic kidney disease) stage 3, GFR 30-59 ml/min: Code(s): N18.30 - Chronic kidney disease, stage 3 unspecified Category: Medical Qualifiers: Chronic kidney disease stage 3 subtype: stage 3b (GFR 30-44) Qualified Code(s): N18.32 - Chronic kidney disease, stage 3b Plan: Chronic kidney disease in the setting of longstanding hypertension obesity and diabetes mellitus. Renal function : creatinine increased from 1.8 mg/dL. to 2.2 Goal is to slow the progression of disease. Continue to avoid nephrotoxic agents. We discussed importance of tight control of blood pressure and blood sugar. She will benefit from weight loss as well. Continue [facility] for renal protection 10/04/2024. Overall renal function stable. Recent serum potassium is 4.0. History of microscopic hematuria. This may be due to recent UTI. However I will recheck urine analysis along with urine culture. Obtain follow up renal ultrasonogram as well. Further workup will be based on the outcome of the above investigations. 12/10/24. Renal function stable at baseline USG in September- No obstruction 0.7 cm angiomyolipoma (2) CKD (chronic kidney disease) stage 4, GFR 15-29 ml/min: Code(s): N18.4 - Chronic kidney disease, stage 4 (severe) Category: Medical (3) Anemia: Code(s): D64.9 - Anemia, unspecified Category: Medical (4) Type 2 diabetes mellitus, with long-term current use of insulin: Code(s): E11.9 - Type 2 diabetes mellitus without complications; Z79.4 - middle or intermediate school principal (current) use of insulin Category: Medical Qualifiers: Diabetes mellitus complication status: with hyperglycemia Qualified Code(s): E11.65 - Type 2 diabetes mellitus with hyperglycemia; Z79.4 - middle or intermediate school principal (current) use of insulin Plan: . Goal A1c less than 7% She follows with Endocrinology Dr. Shirley (5) Microscopic hematuria: Code(s): R31.29 - Other microscopic hematuria Category: Medical Plan . s/p Hypokalemia on KCL 40 meq REcent K is 4.0 Orders: Orders Basic Metabolic Panel 3 Months N18.32 - Chronic kidney disease, stage 3b Total Protein Urine Random Today N18.32 - Chronic kidney disease, stage 3b Creatinine Urine Today N18.32 - Chronic kidney disease, stage 3b Coding Level of Care Code Est Pt Level 4 (84888) Diagnoses Stage 3b chronic kidney disease N18.32 Chronic kidney disease stage 3 subtype: stage 3b (GFR 30-44) CKD (chronic kidney disease) stage 4, GFR 15-29 ml/min N18.4 Anemia D64.9 Type 2 diabetes mellitus with hyperglycemia, with long-term current use of insulin E11.65; Z79.4 Diabetes mellitus complication status: with hyperglycemia Microscopic hematuria R31.29
[2024-12-10 10:00] VITALS: BP 110/50; PULSE 63; O2SAT 94; BMI 41.3
--- OUTSIDE RECORDS SUMMARY | 2024-12-10 10:41 | XMS_ITS | Encounter Summary ---
Author Organization [facility] Address [address] [facility] [address] [place] [address] Phone Care Team Providers Care Prop Worker Name Role Phone Shara Verdugo MD Primary Care Provider [phone] Encounter Details Date Type Department Care Team (Late st Contact Info) Description 03/14/2022 Telephone [facility] [address] [facility] [address] [place] [address] Shara Verdugo MD [address] [place] [address] Social History Tobacco Use Types Packs/Day Years [...] faxed over once complete. Please send to [facility] vascular . Thank you documented in this encounter Plan of Treatment Not on file documented as of this encounter Visit Diagnoses Not on filedocumented in this encounter Care Teams Prop Worker Relationship Specialty Start Date End Date Shara Verdugo MD [address] [place] [address] PCP - General 05/11/20 documented as of this encounter
--- OUTSIDE RECORDS SUMMARY | 2024-12-10 10:41 | XMS_ITS | Clinical Summary ---
Author Organization [facility] Address [address] [facility] [address] [place] [address] Phone Care Team Providers Care Court Of Appeals Judge Name Role Phone Shara Verdugo MD Primary [...] Active ferrous sulfate 325 mg (65 mg [place] iron) tablet Take 325 mg by mouth [...] mouth daily. Active blood-glucose meter,continuous (DEXCOM G7 PAPER BAG MACHINE OPERATOR) MiscIndications: Type 2 diabetes mellitus with left [...] visit and I could not do a [id number]-[id number] in the office. Average glucose 233 mg/dL [...] also going to be following with the childbirth educator. Assessment & Plan (01/08/2019 12:43 PM [...] I will leave it up to the childbirth educator. At this point I will change [...] to use it until she sees a childbirth educator to make changes to her pump. She also needs to talk to the childbirth educator about doing the paperwork for the [...] The patient's daughter informs me that the childbirth educator requires old notes and lab work and I will have this faxed to [facility] diabetes center. Assessment & Plan (02/21/2018 [...] Eventually I want her to see the childbirth educator I want to get her on the tandem T slim pump. I would like her to monitor 4 times a day which she still not doing. I think CGM will help her in the long run. At this point I do not want to request the Max-Vizyle carrol CGM because is not linked to [...] definitely answering less carbohydrates into Omni pod content strategy lead. I want her to see the childbirth educator again. If we can change her pump to a T slim pump it would be best because she is using a lot of insulin and tends to run out of pods. 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, with long-term current use of insulin (Primary Dx); Hyperlipidemia LDL goal <70 10/15/2024 Refill [facility] [address] [place] [address] Orlin Shirley DO Medication Refill 09/11/2024 Telephone [facility] [address] [place] [address] [place] [phone] Laura Chan RN pump setup (Cx appt) [...] 12:10 PM EST Office Visit [facility] [address] [place] [address] Orlin Shirley DO [address] [place] [phone] [email or web address] Health Maintenance Due Date Last Done Comments [...] URINE MICROALBUMIN 45.0(H) 0 - 2.3 mg/dL [facility] URINE CREATININE 88 mg/dL [facility] MICROALB/CRE RATIO 511.4(H) 0 - 20 mg/g Cre [facility] Urine (Urine) 11/20/2023 8:4 1 AM EDT 11/20/2023 8:44 AM EDT Orlin Shirley DO URINE ORDERABLES Final Result Performing Organization Address City/State/[facility] Co de Phone Number [address] [address] * (ABNORMAL) Comprehensive metabolic panel (11/08/2022 10:01 AM EDT) SODIUM 142 133 - 146 mmol/L [facility] POTASSIUM 4.8 3.3 - 5.1 mmol/L [facility] CHLORIDE 101 96 - 108 mmol/L [facility] CO2 35 21 - 35 mmol/L [facility] BUN 22(H) 6 - 19 mg/dL [facility] CREATININE 1.50 0.5 - 1.5 mg/dL [facility] GLUCOSE 80 70 - 99 mg/dL [facility] ALBUMIN 4.0 3.9 - 4.8 g/dL [facility] TOTAL PROTEIN 8.2(H) 6.5 - 8.0 g/dL [facility] CALCIUM 9.6 8.4 - 10.3 mg/dL [facility] ALKALINE PHOSPHATASE 57 39 - 117 U/L [facility] TOTAL BILIRUBIN 0.3 0.0 - 1.2 mg/dL [facility] AST 26 0 - 37 U/L [facility] ALT 20 0 - 40 U/L [facility] GLOBULIN 4.2 1 - 4.8 g/dL [facility] EGFR 39(L) >59 mL/min/1.7 3m2 [facility] Comment:Estimated glomerular filtration rate calculated using the CKD-EPI refit equation. ANION GAP 11 10 - 20 mmol/L [facility] Blood 11/08/2022 10:0 1 AM EDT 11/08/2022 10:09 AM EDT Orlin Shirley DO LAB BLOOD ORDERABLES Final Resul t [facility] [address] [place] [address] from Last 3 Months or Most Recently Relevant to Health Maintenance Insurance ACO ACO ACO ACO ACO ACO ACO ACO ACO Care Teams Court Of Appeals Judge Relationship Specialty Start Date End Date Shara Verdugo MD [address] [place] [address] PCP - General Internal Medicine 01/15/18 Additional Source Comments The information contained in this document represents components of the legal health record. It is not the complete legal health record.[facility]
--- OUTSIDE RECORDS SUMMARY | 2024-12-10 10:41 | XMS_ITS | Encounter Summary ---
Author Organization [employer] [facility] Address [address] [facility] [address] [place] [address] Care Team Providers Care Freezer Machine Operator Name Role Phone Unavailable Primary [...]
== END 2024-12-10 10:16 | disposition home or self-care (01) ==
LOC: HO.HKA 09:54
PROVIDERS: PCP Internal Medicine; Visit Provider Internal Medicine Hypertension Specialist
DX: N18.32 Chronic kidney disease, stage 3b (principal); N18.4 Chronic kidney disease, stage 4 (severe); D64.9 Anemia, unspecified; E11.65 Type 2 diabetes mellitus with hyperglycemia; Z79.4 Long term (current) use of insulin; R31.29 Other microscopic hematuria
CPT/HCPCS: 99214

== ENCOUNTER → 2024-12-10 09:53 | Outpatient (BNVA) | payer OTHER, SELFPAY | PROVIDERS: PCP Internal Medicine; Visit Provider Internal Medicine Hypertension Specialist | DX: N18.32 Chronic kidney disease, stage 3b (principal); E11.65 Type 2 diabetes mellitus with hyperglycemia; Z79.4 Long term (current) use of insulin; R31.29 Other microscopic hematuria; D64.9 Anemia, unspecified | CPT/HCPCS: 99212 ==

== ENCOUNTER 2024-12-18 09:09 | Outpatient (REF) | payer OTHER, SELFPAY ==
--- OUTSIDE RECORDS SUMMARY | 2024-11-13 11:40 | XMS_ITS ---
Author Organization [facility] Address [address] [place] [address] Care Team Providers Care Monotype Keyboard Operator Name Role Phone Shara Verdugo Primary Care Provider Unavailab Royce Goldstein Unavailable [phone] José Heath Unavailable Unavailable REASON FOR VISIT [...] Active Encounters Encounter Location Date Provider Diagnosis [facility] [address] [place] [phone] 11/13/2024 Royce Cunningham Plan Of Treatment No Information Progress Notes * RENETTA GODINEZ LDOB:[birth year] (64 yo F)Acc No.[id number]:11/13/2024 Progress Notes Patient: RENETTA VOSS Provider: Stevo Cunningham MD :1960 A ge:64 Y S ex:Female Date:11/13/2024 Address:[address] [place] [address] [facility] [place] [id number] Pcp:Shara Grimes Subjective: * Chief Complaints: * [...] 0 11/13/2024 Generated for Hailey galvan/Robinson/Angeitting on: 12/18/2024 09:50 AM EDT
[2024-12-18 09:47] LABS: Appearance Urine Clear; Glucose Urine UA >=1000 mg/dL (Negative); PH 6.5 (5.0-9.0); Specific Gravity - Urine 1.010 (1.005-1.025); UMIC TRIGGER UA YES
--- OUTSIDE RECORDS SUMMARY | 2024-12-18 09:51 | XMS_ITS | Encounter Summary ---
Author Organization [facility] Address [address] [facility] [address] [place] [address] Phone Care Team Providers Care Instructor Dancing Name Role Phone Shara Verdugo MD Primary Care Provider [phone] Encounter Details Date Type Department Care Team (Late st Contact Info) Description 03/14/2022 Telephone [facility] [address] [facility] [address] [place] [address] Shara Verdugo MD [address] [place] [address] Social History Tobacco Use Types Packs/Day Years [...] faxed over once complete. Please send to [facility] vascular . Thank you documented in this encounter Plan of Treatment Not on file documented as of this encounter Visit Diagnoses Not on filedocumented in this encounter Care Teams Instructor Dancing Relationship Specialty Start Date End Date Shara Verdugo MD [address] [place] [address] PCP - General 05/11/20 documented as of this encounter
--- OUTSIDE RECORDS SUMMARY | 2024-12-18 09:51 | XMS_ITS | Clinical Summary ---
Author Organization [facility] Address [address] [facility] [address] [place] [address] Phone Care Team Providers Care Personal Care Attendant Name Role Phone Fouzia Verdugo MD Primary Care Provid er Allergies [...] Active ferrous sulfate 325 mg (65 mg crow iron) tablet Take 325 mg by mouth [...] POR V A ORAL EN LA MA FOUZIA 1 TABLET EN LA NOCHE AND 1 [...] mouth daily. Active blood-glucose meter,continuous (DEXCOM G7 HOSPITAL MEDICAL BILLER) MiscIndications: Type 2 diabetes mellitus with left [...] visit and I could not do a [id number] in the office. Average glucose 233 mg/dL [...] also going to be following with the critical care educator. Assessment & Plan (01/08/2019 12:43 PM [...] I will leave it up to the critical care educator. At this point I will change [...] to use it until she sees a critical care educator to make changes to her pump. She also needs to talk to the critical care educator about doing the paperwork for the [...] The patient's daughter informs me that the critical care educator requires old notes and lab work and I will have this faxed to [facility] diabetes center. Assessment & Plan (02/21/2018 10:35 [...] Eventually I want her to see the critical care educator I want to get her on the tandem T slim pump. I would like her to monitor 4 times a day which she still not doing. I think CGM will help her in the long run. At this point I do not want to request the [employer] carrol CGM because is not linked to [...] definitely answering less carbohydrates into Omni pod kapok and cotton machine operator. I want her to see the critical care educator again. If we can change her pump to a T slim pump it would be best because she is using a lot of insulin and tends to run out of pods. 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, with long-term current use of insulin (Primary Dx); Hyperlipidemia LDL goal <70 10/15/2024 Refill [facility] [address] [place] [address] Orlin Shirley DO Medication Refill from Last 3 Months Immunizations Immunization Administration [...] 12:10 PM EST Office Visit [facility] [address] [place] [address] Orlin Shirley DO [address] [place] [address] [email or web address] Health Maintenance Due Date Last Done Comments [...] URINE MICROALBUMIN 45.0(H) 0 - 2.3 mg/dL [facility] URINE CREATININE 88 mg/dL [facility] MICROALB/CRE RATIO 511.4(H) 0 - 20 mg/g Cre [facility] Urine (Urine) 11/20/2023 8:4 1 AM EDT 11/20/2023 8:44 AM EDT Orlin Shirley DO URINE ORDERABLES Final Result Performing Organization Address City/State/[facility] Co de Phone Number [address] [address] * (ABNORMAL) Comprehensive metabolic panel (11/08/2022 10:01 AM EDT) SODIUM 142 133 - 146 mmol/L [facility] POTASSIUM 4.8 3.3 - 5.1 mmol/L [facility] CHLORIDE 101 96 - 108 mmol/L [facility] CO2 35 21 - 35 mmol/L [facility] BUN 22(H) 6 - 19 mg/dL [facility] CREATININE 1.50 0.5 - 1.5 mg/dL [facility] GLUCOSE 80 70 - 99 mg/dL [facility] ALBUMIN 4.0 3.9 - 4.8 g/dL [facility] TOTAL PROTEIN 8.2(H) 6.5 - 8.0 g/dL [facility] CALCIUM 9.6 8.4 - 10.3 mg/dL [facility] ALKALINE PHOSPHATASE 57 39 - 117 U/L [facility] TOTAL BILIRUBIN 0.3 0.0 - 1.2 mg/dL [facility] AST 26 0 - 37 U/L [facility] ALT 20 0 - 40 U/L [facility] GLOBULIN 4.2 1 - 4.8 g/dL [facility] EGFR 39(L) >59 mL/min/1.7 3m2 [facility] Comment:Estimated glomerular filtration rate calculated using the CKD-EPI refit equation. ANION GAP 11 10 - 20 mmol/L [facility] Blood 11/08/2022 10:0 1 AM EDT 11/08/2022 10:09 AM EDT us Orlin Groveasio DO LAB BLOOD ORDERABLES Final Resul t [facility] [address] [place] [address] from Last 3 Months or Most Recently Relevant to Health Maintenance Insurance ACO ACO ACO ACO [place] [address] Care Teams Personal Care Attendant Relationship Specialty Start Date End Date Fouzia Verdugo MD [address] [place] [address] PCP - General Internal Medicine 01/15/18 Additional Source Comments The information contained in this document represents components of the legal health record. It is not the complete legal health record.[facility]
--- OUTSIDE RECORDS SUMMARY | 2024-12-18 09:51 | XMS_ITS | Encounter Summary ---
Author Organization [email or web address] [facility] Address [address] [facility] [address] [place] [address] Care Team Providers Care Business Planning Manager Name Role Phone Unavailable Primary Care [...]
[2024-12-18 10:36] LABS: Anion Gap 14 (12-20); Blood Urea Nitrogen 26 mg/dL (9-16); Calcium 9.2 mg/dL (8.4-10.2); Carbon Dioxide 35 mmol/L (22-29); Chloride 98 mmol/L (96-108); Estimated Glomerular Filt Rate 31; Potassium 3.9 mmol/L (3.3-5.1); Sodium 143 mmol/L (135-145)
[2024-12-18 10:36] LABS: Total Protein Urine Random 54 mg/dL (<12)
== END 2024-12-18 09:10 | disposition home or self-care (01) ==
LOC: HO.LAB 09:09
PROVIDERS: Internal Medicine Hypertension Specialist; PCP Internal Medicine; Visit Provider Internal Medicine
DX: E11.22 Type 2 diabetes mellitus with diabetic chronic kidney disease (principal); D63.1 Anemia in chronic kidney disease; N18.32 Chronic kidney disease, stage 3b; Z79.4 Long term (current) use of insulin
CPT/HCPCS: 36415; 80051; 81001; 82310; 82565; 82570; 84156; 84520

== ENCOUNTER 2024-12-19 13:31 | Outpatient (AMB) | payer OTHER, SELFPAY ==
--- OUTSIDE RECORDS SUMMARY | 2024-11-13 11:40 | XMS_ITS ---
Author Organization [facility] Address [address] [place] [address] Care Team Providers Care Boat Puller Name Role Phone Shara Verdugo Primary Care Provider Unavailab Royce Goldstein Unavailable [phone] José Heath Unavailable Unavailable REASON FOR VISIT Patient presents today for abdominal pain Medications Medication SIG (Take, Route, Frequency, Duration) Notes Start Date End Date Status Atorvastatin Calcium 80mg Active Victoza 18 MG/3ML INJECT 1.2 MG DAILY Subcutaneous for 30 Active Omeprazole 20 MG 1 capsule Orally Onc e a day for 30 Active metFORMIN HCl ER 1000mg Active [...] Active Encounters Encounter Location Date Provider Diagnosis [facility] [address] [place] [address] 11/13/2024 Royce Cunningham Plan Of Treatment No Information Progress Notes * RENETTA GODINEZ LDOB:[birth year] (64 yo F)Acc No.[id number]:11/13/2024 Progress Notes Patient: RENETTA VOSS Provider: Stevo Cunningahm MD :1960 A ge:64 Y S ex:Female Date:11/13/2024 Address:[address] [place] [address] [facility] [id number] Pcp:Shara Grimes Subjective: * Chief Complaints: * 1 . Patient presents today for abdominal pain. * Medical History: * Medications: T aking Amoxicillin-Pot Clavulanate 875-125mg , Taking traMADol HCl 50mg , Taking Methocarbamol 500mg , Taking Atrovent HFA , Taking Vitamin C 500mg , Taking Ferrous Sulfate 325mg , Taking Cilostazol 50mg , Taking HumaLOG 100units , Taking Metoprolol Tartrate 50mg , Taking Lantus 100units , Taking amLODIPine Besylate 10mg , Taking Furosemide 40mg , Taking Acetaminophen 500mg , Taking prednisoLONE Acetate 1% , Taking Aspir-81 81mg , Taking Nitrostat 0.4mg , Taking Isosorbide Mononitrate 30mg , Taking Lisinopril 40mg , Taking Clopidogrel Bisulfate 75mg , Taking metFORMIN HCl ER 1000mg , Taking Gabapentin 300mg , Taking Atorvastatin Calcium 80mg , Taking Victoza 18 MG/3ML Solution INJECT 1.2 MG DAILY Subcutaneous , Taking Omeprazole 20 MG Capsule Delayed Release 1 capsule Orally Once a day Objective: * Vitals: Assessment: Plan: * Treatment: * * The named appointment provid er may or may not be the originator of this progress note, and it is not deemed complete until electronically signed by the appointment provider. Sign off status: Pending * Provider: Stevo Cunningham MD Date: 11/13/2024 Generated for Hailey galvan/Robinson/Herson on: 12/19/2024 01:42 PM EDT
--- OUTSIDE RECORDS SUMMARY | 2024-12-19 13:42 | XMS_ITS | Encounter Summary ---
Author Organization [facility] [facility] Address [address] [facility] [address] [place] [address] Care Team Providers Care Retail Advisor Name Role Phone Unavailable Primary Care Provider [...]
--- OUTSIDE RECORDS SUMMARY | 2024-12-19 13:42 | XMS_ITS | Clinical Summary ---
Author Organization [facility] Address [address] [facility] [address] [place] [address] Phone Care Team Providers Care Rn Provider Relations Name Role Phone Fouzia Verdugo MD Primary [...] Active ferrous sulfate 325 mg (65 mg [place] iron) tablet Take 325 mg by mouth [...] Active hydrALAZINE (APRESOLINE) 25 MG tablet TOME QUYNE TABLETA POR V A ORAL EN LA [...] mouth daily. Active blood-glucose meter,continuous (DEXCOM G7 FRAME TRIMMER) MiscIndications: Type 2 diabetes mellitus with left [...] visit and I could not do a [id number] in the office. Average glucose 233 mg/dL [...] also going to be following with the chemical educator. Assessment & Plan (01/08/2019 12:43 PM [...] I will leave it up to the chemical educator. At this point I will change [...] to use it until she sees a chemical educator to make changes to her pump. She also needs to talk to the chemical educator about doing the paperwork for the [...] The patient's daughter informs me that the chemical educator requires old notes and lab work and I will have this faxed to [facility] diabetes center. Assessment & Plan (02/21/2018 [...] Eventually I want her to see the chemical educator I want to get her on the tandem T slim pump. I would like her to monitor 4 times a day which she still not doing. I think CGM will help her in the long run. At this point I do not want to request the [employer] carrol CGM because is not linked to [...] definitely answering less carbohydrates into Omni pod sql engineer. I want her to see the chemical educator again. If we can change her pump to a T slim pump it would be best because she is using a lot of insulin and tends to run out of pods. 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, with long-term current use of insulin (Primary Dx); Hyperlipidemia LDL goal <70 10/15/2024 Refill [facility] [address] [place] [address] Orlin Shirley DO Medication Refill from Last [...] 12:10 PM EST Office Visit [facility] [address] [place] [address] Orlin Shirley DO [address] [place] [address] [email or web address] Health Maintenance Due Date Last Done Comments [...] URINE MICROALBUMIN 45.0(H) 0 - 2.3 mg/dL [facility] URINE CREATININE 88 mg/dL [facility] MICROALB/CRE RATIO 511.4(H) 0 - 20 mg/g Cre [facility] Urine (Urine) 11/20/2023 8:4 1 AM EDT 11/20/2023 8:44 AM EDT Orlin Shirley DO URINE ORDERABLES Final Result Performing Organization Address City/State/[facility] Co de Phone Number [address] [address] * (ABNORMAL) Comprehensive metabolic panel (11/08/2022 10:01 AM EDT) SODIUM 142 133 - 146 mmol/L [facility] POTASSIUM 4.8 3.3 - 5.1 mmol/L [facility] CHLORIDE 101 96 - 108 mmol/L [facility] CO2 35 21 - 35 mmol/L [facility] BUN 22(H) 6 - 19 mg/dL [facility] CREATININE 1.50 0.5 - 1.5 mg/dL [facility] GLUCOSE 80 70 - 99 mg/dL [facility] ALBUMIN 4.0 3.9 - 4.8 g/dL [facility] TOTAL PROTEIN 8.2(H) 6.5 - 8.0 g/dL [facility] CALCIUM 9.6 8.4 - 10.3 mg/dL [facility] ALKALINE PHOSPHATASE 57 39 - 117 U/L [facility] TOTAL BILIRUBIN 0.3 0.0 - 1.2 mg/dL [facility] AST 26 0 - 37 U/L [facility] ALT 20 0 - 40 U/L [facility] GLOBULIN 4.2 1 - 4.8 g/dL [facility] EGFR 39(L) >59 mL/min/1.7 3m2 [facility] Comment:Estimated glomerular filtration rate calculated using the CKD-EPI refit equation. ANION GAP 11 10 - 20 mmol/L [facility] Blood 11/08/2022 10:0 1 AM EDT 11/08/2022 10:09 AM EDT us Orlin Groveasio DO LAB BLOOD ORDERABLES Final Resul t [facility] [address] [place] [address] from Last 3 Months or Most Recently Relevant to Health Maintenance Insurance ACO ACO ACO ACO ACO ACO ACO ACO ACO Care Teams Rn Provider Relations Relationship Specialty Start Date End Date Fouzia Verdugo MD [address] [place] [address] PCP - General Internal Medicine 01/15/18 Additional Source Comments The information contained in this document represents components of the legal health record. It is not the complete legal health record.[facility]
--- OUTSIDE RECORDS SUMMARY | 2024-12-19 13:42 | XMS_ITS | Encounter Summary ---
Author Organization [facility] Address [address] [facility] [address] [place] [address] Phone Care Team Providers Care Cot Assembler Name Role Phone Shara Verdugo MD Primary Care Provider [phone] Encounter Details Date Type Department Care Team (Late st Contact Info) Description 03/14/2022 Telephone [facility] [address] [facility] [address] [place] [address] Shara Verdugo MD [address] [place] [address] Social History Tobacco Use Types Packs/Day Years [...] faxed over once complete. Please send to [facility] vascular . Thank you documented in this encounter Plan of Treatment Not on file documented as of this encounter Visit Diagnoses Not on filedocumented in this encounter Care Teams Cot Assembler Relationship Specialty Start Date End Date Shara Verdugo MD [address] [place] [address] PCP - General 05/11/20 documented as of this encounter
--- NOTE | 2024-12-19 13:48 | MHC.PC.OV ---
Vital Signs 12/19/24 13:51 Height 5 ft 2 in Weight 223 lb BMI 40.8 BP 160/62 H Blood Pressure Location Lt brachial Position Sitting Respiration 18 Pulse 66 Pulse Source Pulse Oximeter Temp 97.1 F Temp Source Temporal Artery Scan Pulse Oximetry (%) 96 Oxygen Delivery Method Room Air Intake Visit Reasons: dm Patient Account Liaison Required: No Accompanied by: Daughter Allergies lactose Allergy (Intermediate, Verified 12/19/24 13:53) Vomiting amlodipine Allergy (Mild, Verified 12/19/24 13:53) leg edema liraglutide (From VICTOZA) Allergy (Mild, Verified 12/19/24 13:53) VOMITING RUBI Medication List - Last Reconciled 12/19/24 by Shara Grimes MD albuterol sulfate 90 mcg/actuation 2 puffs inhalation Q6H PRN 30 days alprazolam (Xanax) 0.5 mg PO BEDTIME PRN 5 days amitriptyline 25 mg PO BEDTIME 90 days amlodipine 5 mg PO DAILY 90 days apixaban (Eliquis) 5 mg PO BID 90 days ascorbic acid (vitamin C) (Vitamin C With Allie Hips) 500 mg PO DAILY 90 days blood sugar diagnostic As directed cholecalciferol (vitamin D3) 50 mcg PO DAILY 90 days clopidogrel (Plavix) 75 mg PO DAILY commode As directed dapagliflozin propanediol (Farxiga) 10 mg PO DAILY furosemide 40 mg PO BID gabapentin 300 mg PO BID 30 days hydralazine 25 mg PO BID 90 days insulin regular hum U-500 conc 0 - 450 units subcut DAILY PRN lactulose 10 grams (15 mL) PO BEDTIME PRN 30 days metoprolol tartrate 50 mg (2 x 25 mg) PO BID 90 days nitroglycerin mg sublingual pantoprazole 40 mg PO DAILY 90 days [pulse oximeter As directed] rosuvastatin 40 mg PO DAILY 90 days semaglutide (Ozempic) mg subcut sennosides (Senna Laxative) 17.2 mg (2 x 8.6 mg) PO BEDTIME PRN 30 days Shower Chair As directed walker with seat and wheels Tobacco use date assessed: 12/19/24 Dental Screening Dental Screen Date: 12/19/24 Did you have a dental visit in the last 12 months?: No Did you have a dental problem in the last 6 months where you did not have access to dental care?: No Was dental information given to patient?: No HPI HPI Comments History of Present Illness Details The patient is a 64-year-old female presenting with the management of chronic conditions including hypertension, atrial fibrillation, and chronic kidney disease. She has congestive heart failure in which last echocardiogram shows ejection fraction of 55-60% with no obvious valvular pathology and follow by cardiology. Had a stroke with right hemiparesis and walks with a walker for gait stability. This happened years ago. Hypertension has been noted with elevated readings during the visit, although it is usually well-controlled. The patient is on multiple medications including amlodipine and hydralazine for blood pressure management. Atrial fibrillation is managed with medications such as metoprolol and anticoagulants like Eloquis. The condition is stable with regular monitoring and no recent exacerbations reported. Chronic kidney disease is being monitored with recent lab results showing a slight improvement in renal function, with GFR increasing from 29 to 31. The patient is not currently taking iron supplements due to adequate hemoglobin levels. 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 The patient experiences constipation, managed with senna. Hyperlipidemia is managed with rosuvastatin, and the patient is also on Ozempic for glycemic control. Her diabetes has improved with an A1c of 7.6% and she is on insulin pump and follow by Endocrinology. FORMERLY [facility], [facility] Medical History Congestive heart failure Acute kidney injury superimposed on chronic kidney disease Diabetic foot ulcer Cataract (lens) fragments in eye following cataract surgery, right eye Cataract (lens) fragments in eye following cataract surgery, left eye Acute on chronic renal failure CHF exacerbation Afib Restrictive lung disease CKD (chronic kidney disease) stage 4, GFR 15-29 ml/min Right hemiparesis Cerebrovascular accident (CVA) due to occlusion of left middle cerebral artery Skin lesion Lumbar degenerative disc disease CKD (chronic kidney disease) BRYNN (obstructive sleep apnea) Arthritis Hypercholesteremia CAD (coronary artery disease) Sinusitis Stroke Asthma Hypertension Diabetes Surgical History History of esophagogastroduodenoscopy (EGD) H/O colonoscopy History of bilateral tubal ligation History of heart surgery History of coronary angioplasty with insertion of stent History of cataract surgery H/O right breast biopsy Family History Father Stroke Mother Myocardial infarction Paternal Uncle Cancer Family/Other Breast cancer Social History Household Members: Family Housing: House Are you a primary wound care rn to a significant other at home: No Alcohol intake: never Comment: family at bedside Patient Tobacco Use Status: Never used Tobacco e-Cigarette/Vaping Use: Never Used Second Hand Smoke Exposure: No Advance Directives Date on File: 01/25/22 service: No Current occupational status: unemployed and disabled Sexual orientation: Straight/Heterosexual Gender identity: Female Cognitive needs: Yes Hearing needs: No Vision needs: No Female Reproductive History Menstrual Age of Menarche: 14 Questionnaire PHQ-9 Over the last 2 weeks, how often have you been bothered by any of the following problems? 1. Little interest or pleasure in doing things: several days 2. Feeling down, depressed, or hopeless: not at all 3. Trouble falling or staying asleep, or sleeping too much: several days 4. Feeling tired or having little energy: several days 5. Poor appetite or overeating: more than half the days 6. Feeling bad about yourself - or that you are a failure or have let yourself or your family down: not at all 7. Trouble concentrating on things, such as reading the newspaper or watching television: not at all 8. Moving or speaking so slowly that other people could have noticed. Or the opposite - being so fidgety or restless that you have been moving around a lot more than usual: not at all 9. Thoughts that you would be better off or of hurting yourself in some way: not at all Total score: 5 Depression Screening Interpretation: Positive Depression Screening Follow-up: Existing condition and Follow-up Visit Requested Depression Screening Done: Yes 22801 - PHQ-9 Billing: Yes Source: Developed by Drs. Royce Nielsen, Sarah Dunbar, Farhan Bird and colleagues, with an educational maya from [employer]. Thrive Questionnaire Date Thrive assessed: 12/19/24 I am a: Patient What is your living situation today?: I have a steady place to live Within the past 12 months, did the food you bought not last and you didn't have the money to get more?: Never true Within the past 12 months, did you worry whether your food would run out before you got money to buy more?: Never true Do you have trouble paying for medicines?: No Do you have trouble getting transportation to medical appointments?: No Do you have trouble paying your heating and electricity bill?: No Do you have trouble taking care of your child, family member or friend?: No Do you have trouble with day-to-day activities such as bathing, preparing meals, shopping, managing finances, etc.?: Yes Are you currently unemployed and looking for a job?: No Are you interested in more education?: No Please select the resources that you would like help with: None Currently or been in a relationship where the following occur: I choose not to answer THRIVE Score: 0 AUDIT C Alcohol Use Questionnaire (AUDIT-C) 1. How often do you have a drink containing alcohol?: Never Total Score: 0 Score Reviewed/Action Taken: No SILVANA-7 AMB Questionnaire SILVANA-7 Date SILVANA - 7 assessed: 12/19/24 Feeling nervous, anxious, or on edge: 0 = Not at all Not being able to stop or control worryin = Not at all Worrying too much about different things: 0 = Not at all Trouble relaxin = Not at all Being so restless that it is hard to sit still: 0 = Not at all Becoming easily annoyed or irritable: 0 = Not at all Feeling afraid as if something awful might happen: 0 = Not at all Total SILVANA-7 score (0-4 normal; 5-9 mild; 10-14 moderate; 15-21 severe): 0 Source: Developed by Drs. Royce Nielsen, Sarah Dunbar, Farhan Bird and colleagues, with an educational maya from [employer]. SILVANA-7 Assessment Billing SILVANA-7 Assessment Tool: SILVANA-7 Assessment 18503 Review of Systems Const All systems reviewed & are unremarkable except as noted in HPI and below Card Denies chest pain at rest, Denies chest pain with activity, Denies edema, Denies irregular heart rhythm, Denies claudication, Denies dyspnea, Denies dyspnea on exertion, Denies orthopnea, Denies paroxysmal nocturnal dyspnea and Denies slow heart rate Resp Denies cough, Denies dyspnea and Denies dyspnea on exertion GI Denies abdominal pain, Denies change in bowel habits, Denies excessive flatus, Denies nausea and Denies vomiting Denies urinary incontinence, Denies urinary hesitancy and Denies urinary urgency Musc Denies abnormal gait, Denies atrophy, Denies deformity and Denies limited range of motion Skin/Breast Denies bleeding lesions, Denies changing lesions and Denies rash Neuro Denies abnormal gait, Denies behavioral changes and Denies lack of coordination Psych Denies behavioral changes Physical exam (Primary Care) Vital Signs: Last Vital Signs Temp 97.1 F 12/19/24 13:51 Pulse 66 12/19/24 13:51 Resp 18 12/19/24 13:51 BP 160/62 H 12/19/24 13:51 Pulse Ox 96 12/19/24 13:51 Oxygen Delivery Method Room Air 12/19/24 13:51 BMI result Body Mass Index 40.8 BMI Assessment/Plan discussion: High BMI High, discussed plan: lifestyle, weight reduction, dietary and physical activity Tobacco/Smoking Status: Tobacco use Status Tobacco use date assessed 12/19/24 12/19/24 13:55 Patient Tobacco Use Status Never used Tobacco 12/19/24 13:48 e-Cigarette/Vaping Use Never Used 12/19/24 13:48 PHQ-9: PHQ-9 Score PHQ-9: Total score 5 12/19/24 14:20 Depression Screening Interpretation: Positive Depression Screening Follow-up: Existing condition and Follow-up Visit Requested Thrive Assessment: Date of Thrive Assessment Date Thrive assessed 12/19/24 12/19/24 13:55 Currently or been in a relationship where the following occur: I choose not to answer Const Limitations: ambulation with walker Resp Effort & Inspection: normal respiratory effort Auscultation: clear to auscultation bilaterally Cardio Jugular venous distension: no JVD Rate: regular rate Rhythm: regular rhythm Heart sounds: S1 normal heart sound present and S2 normal heart sound present Extrem General: Yes full ROM Coding Level of Care Code Est Pt Level 4 (00800) Complex EM visit Add On G2211 Diagnoses Chronic heart failure with preserved ejection fraction (HFpEF) I50.32 Essential hypertension I10 Paroxysmal atrial fibrillation I48.0 Type 2 diabetes mellitus with hyperglycemia, with long-term current use of insulin E11.65; Z79.4 Diabetes mellitus complication status: with hyperglycemia Stage 3b chronic kidney disease N18.32 Chronic kidney disease stage 3 subtype: stage 3b (GFR 30-44) Cerebrovascular accident (CVA) due to occlusion of left middle cerebral artery I63.512 Right hemiparesis G81.91 Additional Codes SILVANA-7 Assessment Billing - SILVANA-7 Assessment Tool: SILVANA-7 Assessment 37459 ([id number]) PHQ-9 - 45411 - PHQ-9 Billing: Yes ([id number]) Time Spent (min) 23 Assessment & Plan Assessment & Plan (1) Chronic heart failure with preserved ejection fraction (HFpEF): Code(s): I50.32 - Chronic diastolic (congestive) heart failure Category: Medical (2) Essential hypertension: Code(s): I10 - Essential (primary) hypertension Category: Medical (3) Paroxysmal atrial fibrillation: Code(s): I48.0 - Paroxysmal atrial fibrillation Category: Medical (4) Type 2 diabetes mellitus, with long-term current use of insulin: Code(s): E11.9 - Type 2 diabetes mellitus without complications; Z79.4 - USP (current) use of insulin Category: Medical Qualifiers: Diabetes mellitus complication status: with hyperglycemia Qualified Code(s): E11.65 - Type 2 diabetes mellitus with hyperglycemia; Z79.4 - terminal operator (current) use of insulin (5) CKD (chronic kidney disease) stage 3, GFR 30-59 ml/min: Code(s): N18.30 - Chronic kidney disease, stage 3 unspecified Category: Medical Qualifiers: Chronic kidney disease stage 3 subtype: stage 3b (GFR 30-44) Qualified Code(s): N18.32 - Chronic kidney disease, stage 3b (6) Cerebrovascular accident (CVA) due to occlusion of left middle cerebral artery: Code(s): I63.512 - Cerebral infarction due to unspecified occlusion or stenosis of left middle cerebral artery Category: Medical (7) Right hemiparesis: Code(s): G81.91 - Hemiplegia, unspecified affecting right dominant side Category: Medical Plan The management plan includes continued monitoring of hypertension with current medications, ensuring blood pressure remains controlled. Atrial fibrillation will be managed with ongoing use of metoprolol and Eloquis, with regular follow-ups to assess cardiac function. Chronic kidney disease will be monitored with periodic renal function tests to track any changes in GFR. The benign angiomyolipoma in the right kidney will be observed with follow-up imaging as needed. Constipation management will continue with lactulose, and dietary adjustments may be considered if symptoms persist. Hyperlipidemia will be managed with rosuvastatin, and the patient will continue Ozempic for glycemic control. Patient was informed and verbally consented to the use of an ambient scribe for clinic note documentation during this visit. Orders: Orders AMB Hemoglobin A1c 12/19/24 Z13.9 - Encounter for screening, unspecified Lipid Panel 4 Months E78.5 - Hyperlipidemia, unspecified Microalbumin, Random (w Creat) 4 Months R80.9 - Proteinuria, unspecified Comprehensive [place]. Panel Fast 4 Months I50.32 - Chronic diastolic (congestive) heart failure NT-proBNP 4 Months I50.32 - Chronic diastolic (congestive) heart failure Medications: Refilled sennosides (Senna Laxative) 17.2 mg (2 x 8.6 mg) PO BEDTIME PRN 60 tabs 1RF constipation 30 days Discontinued lactulose Discontinued Reason: Patient Completed Course 10 grams (15 mL) PO BEDTIME 30 days PRN 450 mL 2RF constipation
[2024-12-19 13:51] VITALS: BP 160/62; PULSE 66; RESP 18; TEMP 36.2; O2SAT 96; BMI 40.8
== END 2024-12-19 14:30 | disposition home or self-care (01) ==
LOC: HO.HMCH 13:32
PROVIDERS: PCP Internal Medicine; Visit Provider Internal Medicine
DX: I13.0 Hypertensive heart and chronic kidney disease with heart failure and stage 1 through stage 4 chronic kidney disease, or unspecified chronic kidney disease (principal); I50.32 Chronic diastolic (congestive) heart failure; I48.0 Paroxysmal atrial fibrillation; E11.65 Type 2 diabetes mellitus with hyperglycemia; Z79.4 Long term (current) use of insulin; N18.32 Chronic kidney disease, stage 3b; I63.512 Cerebral infarction due to unspecified occlusion or stenosis of left middle cerebral artery; G81.91 Hemiplegia, unspecified affecting right dominant side

== ENCOUNTER → 2024-12-19 13:31 | Outpatient (BNVA) | payer OTHER, SELFPAY | PROVIDERS: PCP Internal Medicine; Visit Provider Internal Medicine | DX: I13.0 Hypertensive heart and chronic kidney disease with heart failure and stage 1 through stage 4 chronic kidney disease, or unspecified chronic kidney disease (principal); I50.32 Chronic diastolic (congestive) heart failure; N18.32 Chronic kidney disease, stage 3b; I48.0 Paroxysmal atrial fibrillation; E11.65 Type 2 diabetes mellitus with hyperglycemia; I69.351 Hemiplegia and hemiparesis following cerebral infarction affecting right dominant side; E78.5 Hyperlipidemia, unspecified; R80.9 Proteinuria, unspecified; Z79.4 Long term (current) use of insulin | CPT/HCPCS: 96127; 99212 ==

== ENCOUNTER → 2025-01-09 23:59 | Outpatient (BNV) | payer OTHER, SELFPAY ==
--- NOTE | 2025-01-21 18:40 | MHC.OFFVIS ---
Intake Visit Reasons: Remote [facility] Allergies lactose Allergy (Intermediate, Verified 12/19/24 13:53) Vomiting amlodipine Allergy (Mild, Verified 12/19/24 13:53) leg edema liraglutide (From VICTOZA) Allergy (Mild, Verified 12/19/24 13:53) VOMITING RUBI PFSH Medical History Congestive heart failure Acute kidney injury superimposed on chronic kidney disease Diabetic foot ulcer Cataract (lens) fragments in eye following cataract surgery, right eye Cataract (lens) fragments in eye following cataract surgery, left eye Acute on chronic renal failure CHF exacerbation Afib Restrictive lung disease CKD (chronic kidney disease) stage 4, GFR 15-29 ml/min Right hemiparesis Cerebrovascular accident (CVA) due to occlusion of left middle cerebral artery Skin lesion Lumbar degenerative disc disease CKD (chronic kidney disease) BRYNN (obstructive sleep apnea) Arthritis Hypercholesteremia CAD (coronary artery disease) Sinusitis Stroke Asthma Hypertension Diabetes Surgical History History of esophagogastroduodenoscopy (EGD) H/O colonoscopy History of bilateral tubal ligation History of heart surgery History of coronary angioplasty with insertion of stent History of cataract surgery H/O right breast biopsy Family History Father Stroke Mother Myocardial infarction Paternal Uncle Cancer Family/Other Breast cancer Social History Household Members: Family Housing: House Are you a primary child care cook to a significant other at home: No Alcohol intake: never Comment: family at bedside Patient Tobacco Use Status: Never used Tobacco e-Cigarette/Vaping Use: Never Used Second Hand Smoke Exposure: No Advance Directives Date on File: 01/25/22 service: No Current occupational status: unemployed and disabled Sexual orientation: Straight/Heterosexual Gender identity: Female Cognitive needs: Yes Hearing needs: No Vision needs: No Female Reproductive History Menstrual Age of Menarche: 14 Office Procedures Cardiac Device Check Cardiac Device Check Details: Monitoring period dates: 11/27/24 - 01/09/25 Optimal PA pressure range: LOREN goal 30mmhg Procedure code: 59075 BACKGROUND: Anna is implanted with the CardioMEMS PA Sensor.? I use this technology to monitor PA pressures on a weekly basis to ensure patients are within their optimal range to prevent decompensation.? SUMMARY:? I utilized the remote monitoring platform ([employer]) to set optimal targets for pulmonary artery pressure thresholds as part of acute and chronic management of patient?s heart failure. During the period indicated above, I monitored the patient?s pulmonary artery pressures weekly via trend analysis and notification reports which provide alerts when patient?s PA pressures were outside of range to prompt immediate action in medication changes and communications.? The weekly reports are archived in the [employer] system which serve as a parallel record to document weekly PA pressures, medication changes, and clinical notes. I have reviewed readings on 11/29, 12/06, 12/13, 12/20, 12/27, 01/03, 01/09.. Readings have ranged between 31-40mmhg. Has been averaging readings about once to twice weekly. She has been instructed to do them 3 times weekly. Additional diuretic was given when reading was elevated. 17807 - Remote monitoring of wireless pulmonary artery pressure sensor Procedure code (CPT) selection complete Assessment & Plan Assessment & Plan (1) Presence of CardioMEMS HF system: Code(s): Z95.818 - Presence of other cardiac implants and grafts Category: Medical Plan: monthly report Coding Level of Care Code Procedure Only Diagnoses Presence of CardioMEMS HF system Z95.818 CPT Codes Cardiac Device Check - Cardiac Device 17: 01866 - Remote monitoring of wireless pulmonary artery pressure sensor ([id number])
== END ==
PROVIDERS: PCP Internal Medicine; Visit Provider Nurse Practitioner Family
DX: Z45.09 Encounter for adjustment and management of other cardiac device (principal)
CPT/HCPCS: 93264

== ENCOUNTER → 2025-02-21 23:59 | Outpatient (BNV) | payer OTHER, SELFPAY ==
--- NOTE | 2025-02-28 16:31 | MHC.OFFVIS ---
Intake Visit Reasons: Remote Cardiom[facility]- [facility] Allergies lactose Allergy (Intermediate, Verified 12/19/24 13:53) Vomiting amlodipine Allergy (Mild, Verified 12/19/24 13:53) leg edema liraglutide (From VICTOZA) Allergy (Mild, Verified 12/19/24 13:53) VOMITING RUBI PFSH Medical History Congestive heart failure Acute kidney injury superimposed on chronic kidney disease Diabetic foot ulcer Cataract (lens) fragments in eye following cataract surgery, right eye Cataract (lens) fragments in eye following cataract surgery, left eye Acute on chronic renal failure CHF exacerbation Afib Restrictive lung disease CKD (chronic kidney disease) stage 4, GFR 15-29 ml/min Right hemiparesis Cerebrovascular accident (CVA) due to occlusion of left middle cerebral artery Skin lesion Lumbar degenerative disc disease CKD (chronic kidney disease) BRYNN (obstructive sleep apnea) Arthritis Hypercholesteremia CAD (coronary artery disease) Sinusitis Stroke Asthma Hypertension Diabetes Surgical History History of esophagogastroduodenoscopy (EGD) H/O colonoscopy History of bilateral tubal ligation History of heart surgery History of coronary angioplasty with insertion of stent History of cataract surgery H/O right breast biopsy Family History Father Stroke Mother Myocardial infarction Paternal Uncle Cancer Family/Other Breast cancer Social History Household Members: Family Housing: House Are you a primary long term care phlebotomist to a significant other at home: No Alcohol intake: never Comment: family at bedside Patient Tobacco Use Status: Never used Tobacco e-Cigarette/Vaping Use: Never Used Second Hand Smoke Exposure: No Advance Directives Date on File: 01/25/22 service: No Current occupational status: unemployed and disabled Sexual orientation: Straight/Heterosexual Gender identity: Female Cognitive needs: Yes Hearing needs: No Vision needs: No Female Reproductive History Menstrual Age of Menarche: 14 Office Procedures Cardiac Device Check Cardiac Device Check Details: Monitoring period dates: 01/10/25 - 02/21/25 Optimal PA pressure range: LOREN goal 30mmhg Procedure code: 47794 BACKGROUND: Anna is implanted with the CardioMEMS PA Sensor.? I use this technology to monitor PA pressures on a weekly basis to ensure patients are within their optimal range to prevent decompensation.? SUMMARY:? I utilized the remote monitoring platform ([employer]) to set optimal targets for pulmonary artery pressure thresholds as part of acute and chronic management of patient?s heart failure. During the period indicated above, I monitored the patient?s pulmonary artery pressures weekly via trend analysis and notification reports which provide alerts when patient?s PA pressures were outside of range to prompt immediate action in medication changes and communications.? The weekly reports are archived in the [employer] system which serve as a parallel record to document weekly PA pressures, medication changes, and clinical notes. I have reviewed readings on01/10, 01/17, 01/24, 01/31, 02/07, 02/14, 02/21. Readings have ranged between 28-35mmhg. Has been averaging readings about once to twice weekly. She has been instructed to do them 3 times weekly. 35771 - Remote monitoring of wireless pulmonary artery pressure sensor Procedure code (CPT) selection complete Assessment & Plan Assessment & Plan (1) Presence of CardioMEMS HF system: Code(s): Z95.818 - Presence of other cardiac implants and grafts Category: Medical Plan: monthly report Coding Level of Care Code Procedure Only Diagnoses Presence of CardioMEMS HF system Z95.818 CPT Codes Cardiac Device Check - Cardiac Device 17: 06129 - Remote monitoring of wireless pulmonary artery pressure sensor ([id number])
== END ==
PROVIDERS: PCP Internal Medicine; Visit Provider Nurse Practitioner Family
DX: Z45.09 Encounter for adjustment and management of other cardiac device (principal)
CPT/HCPCS: 93264

== ENCOUNTER 2025-03-10 10:38 | Outpatient (AMB) | payer OTHER, SELFPAY ==
[2025-03-10 10:48] VITALS: BP 110/62; PULSE 66; O2SAT 95; BMI 41.7
--- NOTE | 2025-03-10 10:48 | A.OFFVIS_ITS ---
Vital Signs 03/10/25 10:48 Height 5 ft 2 in Weight 228 lb 2.855 oz BMI 41.7 BP 110/62 Blood Pressure Location Lt brachial Position Sitting Pulse 66 Pulse Source Pulse Oximeter Pulse Oximetry (%) 95 Oxygen Delivery Method Room Air Intake Visit Reasons: kyar Intake Note: pt is here for follow up and states she is very tired, she has pain, needs supplies for cpap sent to [employer] Required: No Engine Repairer Service: Engine Repairer Service offered & declined Allergies lactose Allergy (Intermediate, Verified 03/10/25 10:59) Vomiting amlodipine Allergy (Mild, Verified 03/10/25 10:59) leg edema liraglutide (From VICTOZA) Allergy (Mild, Verified 03/10/25 10:59) VOMITING RUBI Medication List - Last Reconciled 03/10/25 by Real Slade MD albuterol sulfate 90 mcg/actuation 2 puffs inhalation Q6H PRN 30 days alprazolam (Xanax) 0.5 mg PO BEDTIME PRN 5 days amitriptyline 25 mg PO BEDTIME 90 days amlodipine 5 mg PO DAILY 90 days apixaban (Eliquis) 5 mg PO BID 90 days ascorbic acid (vitamin C) (Vitamin C With Allie Hips) 500 mg PO DAILY 90 days blood sugar diagnostic As directed cholecalciferol (vitamin D3) 50 mcg PO DAILY 90 days clopidogrel (Plavix) 75 mg PO DAILY commode As directed dapagliflozin propanediol (Farxiga) 10 mg PO DAILY furosemide 40 mg PO BID gabapentin 300 mg PO BID 90 days hydralazine 25 mg PO BID 90 days insulin regular hum U-500 conc 0 - 450 units subcut DAILY PRN metoprolol tartrate 50 mg (2 x 25 mg) PO BID 90 days nitroglycerin mg sublingual pantoprazole 40 mg PO DAILY 90 days [pulse oximeter As directed] rosuvastatin 40 mg PO DAILY 90 days semaglutide (Ozempic) mg subcut sennosides (Senna Laxative) 17.2 mg (2 x 8.6 mg) PO BEDTIME PRN 30 days Shower Chair As directed walker with seat and wheels Do you need a note to return to daycare/school/sports/work: No HPI HPI kyra: Details: 64 years old Citizen Of [place]-speaking female grossly obese, and has diagnosis of obstructive sleep apnea, as well as restrictive lung disease. She is here for follow-up and comes with her daughter who is the assembly machine feeder. She uses CPAP very regularly every night. And sleeps good. Also has intermittent bouts of cough and some wheezing so uses albuterol p.r.n.. She has been relatively stable in the last 4 months. She remains overweight and now recently started on semaglutide injections [facility] Medical History Congestive heart failure Acute kidney injury superimposed on chronic kidney disease Diabetic foot ulcer Cataract (lens) fragments in eye following cataract surgery, right eye Cataract (lens) fragments in eye following cataract surgery, left eye Acute on chronic renal failure CHF exacerbation Afib Restrictive lung disease CKD (chronic kidney disease) stage 4, GFR 15-29 ml/min Right hemiparesis Cerebrovascular accident (CVA) due to occlusion of left middle cerebral artery Skin lesion Lumbar degenerative disc disease CKD (chronic kidney disease) KYRA (obstructive sleep apnea) Arthritis Hypercholesteremia CAD (coronary artery disease) Sinusitis Stroke Asthma Hypertension Diabetes Surgical History History of esophagogastroduodenoscopy (EGD) H/O colonoscopy History of bilateral tubal ligation History of heart surgery History of coronary angioplasty with insertion of stent History of cataract surgery H/O right breast biopsy Family History Father Stroke Mother Myocardial infarction Paternal Uncle Cancer Family/Other Breast cancer Social History Household Members: Family Housing: House Are you a primary child day care provider to a significant other at home: No Alcohol intake: never Comment: family at bedside Patient Tobacco Use Status: Never used Tobacco e-Cigarette/Vaping Use: Never Used Second Hand Smoke Exposure: No Advance Directives Date on File: 01/25/22 service: No Current occupational status: unemployed and disabled Sexual orientation: Straight/Heterosexual Gender identity: Female Cognitive needs: Yes Hearing needs: No Vision needs: No Female Reproductive History Menstrual Age of Menarche: 14 Review of Systems Const All systems reviewed & are unremarkable except as noted in HPI and below Eyes Reports no additional complaints ENT Reports nasal congestion (MILD OFF AND ON) Card Denies chest pain, Reports irregular heart rhythm (PAROXYSMAL ATRIAL FIB) and Denies leg edema Resp Reports as per HPI GI Reports no additional complaints Reports no additional complaints Musc Reports abnormal gait (UNSTABLE ON FEET, USES WALKER FOR STABILITY), Reports back pain and Reports myalgias Skin/Breast Reports system reviewed and no additional complaints, except as documented Neuro Reports abnormal gait (UNSTABLE ON FEET, USES WALKER FOR STABILITY) Psych Reports no additional complaints Endo Reports other (DIABETES MELLITUS) Physical Exam Vital Signs: Last Vital Signs Pulse 66 03/10/25 10:48 BP 110/62 03/10/25 10:48 Pulse Ox 95 03/10/25 10:48 Oxygen Delivery Method Room Air 03/10/25 10:48 BMI result Body Mass Index 41.7 Const General: comfortable, no acute distress, alert and awake Orientation/consciousness: patient oriented x3 HEENT Head: Yes normal to inspection General nose exam: No nasal polyps present, No nasal discharge present and Other nasal findings present (Minimal, irritation over the nasal septumon right side is noted,no bleeding) Face and sinus: Yes sinuses nontender Mouth: oropharynx normal Throat: Yes posterior oropharynx normal Eyes General: appearance normal, both eyes and all related structures Neck Neck: Yes normal visual inspection, Yes no lymphadenopathy, Yes trachea midline and Yes no JVD Thyroid: Thyroid normal Chest Chest palpation & inspection: normal inspection of the chest, normal palpation of entire chest wall and no tenderness Resp Other: PERCUSSION NOTE NOT PERCEPTIBLE BECAUSE OF THICK CHEST WALL. BREATH SOUNDS ARE DISTANT BUT EQUAL ON BOTH SIDES. NO WHEEZES CREPITATIONS OR RHONCHI ARE HEARD. Cardio Palpation: normal PMI Rate: regular rate Rhythm: regular rhythm Heart sounds: no gallops and no murmurs GI Palpation (GI): Soft to palpation, nontender, No hepatosplenomegaly present, no masses and Other GI palpation findings present (ABDOMEN MODERATELY OBESE AND PROTUBERANT) Auscultation: normal bowel sounds Back/Spine/Pelvis Thoracic/Lumbar Spine: thoracic and lumbar spine normal to inspection and thorac o-lumbar ROM limited Skin General skin exam: dry skin Neuro General: patient oriented x3 and No no focal motor deficits (WEAKNESS OF LOWER EXTREMITIES) Cranial nerves: Yes CN's II-XII intact bilaterally Extrem General: Yes normal to inspection, Yes no calf tenderness and Yes edema (2 + EDEMA OF THE LEGS ) Psych Appearance: grossly normal and well kempt Speech and movement: Normal speech and movement present Results Reviewed Results Reviewed: Compliance report for the last 30 nights is reviewed. She used 29/30 nights , missing only 1 night when she just could not fall asleep. Average use it per night for 5 hours 31 minutes. Her pressure is relatively low, 7 cm. She does have leak maximum 103.6. And residual AHI is 8.2. Assessment & Plan Assessment & Plan (1) Obesity (BMI 30-39.9): Comment: BMI=41.7 REMAINS GROSSLY OBESE SHE IS NOT ABLE TO DO WALK OR DO ANY EXERCISE. SHE TRIES TO WATCH HER DIET. THERE IS NOT MUCH POTENTIAL FOR HER TO LOSE WEIGHT. Code(s): E66.9 - Obesity, unspecified Category: Medical Plan: Recently has been started on semaglutide injections and this may help to lose some weight. (2) KYRA on CPAP: Comment: LONGSTANDING HISTORY OF OBSTRUCTIVE SLEEP APNEA. PRESSURE SETTING 7 CM. WHICH IS RELATIVELY LOW , F. F. MASK SHE IS USING IT REGULARLY EVERY NIGHT, BUT DURING THE NIGHT SHE HAPPENS TO PULL IT OFF, AND HER USAGE REMAINS SUBOPTIMAL . THIS TIME THE AVERAGE USE IT PER NIGHT IS CLOSE TO 5 hrs 31 minutes WHICH IS BETTER THAN BEFORE. RESIDUAL AHI 8.2, STILL HIGH BUT IMPROVED FROM BEFORE . Code(s): G47.33 - Obstructive sleep apnea (adult) (pediatric); Z99.89 - Dependence on other enabling machines and devices Category: Medical Plan: COMMENDED FOR GOOD COMPLIANCE. ADVISED TO CONTINUE USING CPAP AT NIGHT FOR ABOUT 6 HOURS AT LEAST. BECAUSE OF RESIDUAL AHI OF 8.2, WE HAVE ADJUSTED THE PRESSURE TO 9 CM. ALSO INSTRUCTED TO KEEP THE STRAPS TIGHT TO AVOID ANY AIR LEAK. (3) Restrictive lung disease: Comment: KNOWN TO HAVE RESTRICTIVE LUNG DISEASE SINCE THE HER PULMONARY FUNCTION TEST IN 2013. CLINICALLY I AM SURE SHE DOES HAVE MODERATE DEGREE OF RESTRICTION, THIS IS SECONDARY TO MORBID OBESITY. SHE ALSO SEEMS TO HAVE MILD DEGREE OF ASTHMA/REACTIVE AIRWAYS. Code(s): J98.4 - Other disorders of lung Category: Medical Plan: MAY USE ALBUTEROL 2 PUFFS Q 6 HOURS P.R.N. IF SHE HAS ANY WHEEZING OR SHORTNESS OF BREATH. CONTINUE TO DO DEEP BREATHING EXERCISES DURING THE DAYTIME. Coding Level of Care Code Est Pt Level 3 (76737) Diagnoses Obesity (BMI 30-39.9) E66.9 KYRA on CPAP G47.33; Z99.89 Restrictive lung disease J98.4
--- OUTSIDE RECORDS SUMMARY | 2025-03-10 12:35 | XMS_ITS | Encounter Summary ---
Author Organization [facility] Address [address] [facility] [address] [place] [address] Phone Care Team Providers Care Auto Tune Up Mechanic Name Role Phone Shara Verdugo MD Primary Care Provider [phone] Reason for Visit * Reason Comments Med Refill Encounter Details Date Type Department Care Team (Late st Contact Info) Description 08/07/2024 Refill [facility] [address] [place] [address] Darrell Santa MD [address] [facility] [address] [place] [address] Chronic kidney disease, stage 4 [...] hypertension documented in this encounter Care Teams Auto Tune Up Mechanic Relationship Specialty Start Date End Date Shara Verdugo MD [address] [place] [address] PCP - General 05/11/20 documented as of this encounter
--- OUTSIDE RECORDS SUMMARY | 2025-03-10 12:35 | XMS_ITS | Encounter Summary ---
Author Organization [facility] Address [address] [facility] [address] [facility] [address] [place] [address] Phone Care Team Providers Care Drop Count Associate Name Role Phone Shara Verdugo MD Primary Care Provider [phone] Reason for Visit * Reason Comments Med Refill Encounter Details Date Type Department Care Team (Late st Contact Info) Description 02/19/2025 Refill [facility] [address] [facility] [address] [place] [address] Darrell Santa MD [address] [facility] [address] [place] [address] Chronic kidney disease, stage 4 [...] hypertension documented in this encounter Care Teams Drop Count Associate Relationship Specialty Start Date End Date Shara Verdugo MD [address] [place] [address] PCP - General 05/11/20 documented as of this encounter
--- OUTSIDE RECORDS SUMMARY | 2025-03-10 12:35 | XMS_ITS | Encounter Summary ---
Author Organization [facility] Address [address] [facility] [address] [place] [address] Phone Care Team Providers Care Roll Slicing Machine Tender Name Role Phone Shara Verdugo MD Primary Care Provider [phone] Encounter Details Date Type Department Care Team (Late st Contact Info) Description 03/14/2022 Telephone [facility] [address] [facility] [address] [place] [address] Shara Verdugo MD [address] [place] [address] Social History Tobacco Use Types Packs/Day Years [...] faxed over once complete. Please send to [facility] . Thank you documented in this encounter Plan of Treatment Not on file documented as of this encounter Visit Diagnoses Not on filedocumented in this encounter Care Teams Roll Slicing Machine Tender Relationship Specialty Start Date End Date Shara Verdugo MD [address] [place] [address] PCP - General 05/11/20 documented as of this encounter
--- OUTSIDE RECORDS SUMMARY | 2025-03-10 12:37 | XMS_ITS | Encounter Summary ---
Author Organization [facility] Address [address] [facility] [address] [place] [address] Phone Care Team Providers Care Registry Nurse Name Role Phone Shara Verdugo MD Primary Care Provider [phone] Reason for Visit * Reason Comments Med Refill Encounter Details Date Type Department Care Team (Late st Contact Info) Description 07/15/2024 Refill [facility] [address] [place] [address] Darrell Santa MD [address] [facility] [address] [place] [address] Chronic kidney disease, stage 4 [...] hypertension documented in this encounter Care Teams Registry Nurse Relationship Specialty Start Date End Date Shara Verdugo MD [address] [place] [address] PCP - General 05/11/20 documented as of this encounter
--- OUTSIDE RECORDS SUMMARY | 2025-03-10 12:37 | XMS_ITS | Encounter Summary ---
Author Organization [facility] Address [address] [place] [address] Care Team Providers Care Psychology Fellow Name Role Phone Unavailable Primary Care Provider [...]
--- OUTSIDE RECORDS SUMMARY | 2025-03-10 12:37 | XMS_ITS | Encounter Summary ---
Author Organization [facility] Address [address] [facility] [address] [place] [address] Phone Care Team Providers Care Home Paraprofessional Name Role Phone Shara Verdugo MD Primary Care Provider [phone] Reason for Visit * Reason Comments Med Refill Encounter Details Date Type Department Care Team (Late st Contact Info) Description 10/03/2023 [facility]ill [facility] [address] [place] [address] Darrell Santa MD [address] [facility] [address] [place] [address] Social History Tobacco Use Types [...] on filedocumented in this encounter Care Teams Home Paraprofessional Relationship Specialty Start Date End Date Shara Verdugo MD [address] [place], [place] PCP - General 05/11/20 documented as of this encounter
--- OUTSIDE RECORDS SUMMARY | 2025-03-10 12:37 | XMS_ITS | Clinical Summary ---
Author Organization [employer] Address [address] [facility] [address] [place] [address] Care Team Providers Care Supervisor Lamp Shades Name Role Phone Unavailable Primary Care Provider [...] Vaccines (1 of 2) 08/06/2011 COVID-19 Vaccine (1 - 2023-2 5 season) 2024 Influenza Vaccine (#1) 2024 RSV Patients and Pa tients Aged 60 [...]
--- OUTSIDE RECORDS SUMMARY | 2025-03-10 12:37 | XMS_ITS | Encounter Summary ---
Author Organization [facility] Address [address] [facility] [facility] [facility] [address] [place] [address] Phone Care Team Providers Care Risk Control Director Name Role Phone Shara Verdugo MD Primary Care Provider Reason for Visit * Reason Comments Med Refill Encounter Details Date Type Department Care Team (Late st Contact Info) Description 10/16/2023 Refill [facility] [address] [facility] [address] [address] [place] [address] Darrell Santa MD [address] [facility] [address] [place] [address] Chronic kidney disease, stage 4 [...] hypertension documented in this encounter Care Teams Risk Control Director Relationship Specialty Start Date End Date Shara Verdugo MD [address] [place] [address] PCP - General 05/11/20 documented as of this encounter
--- OUTSIDE RECORDS SUMMARY | 2025-03-10 12:37 | XMS_ITS | Clinical Summary ---
Author Organization [facility] Address [address] [facility] [address] [place] [address] Phone Care Team Providers Care Hides And Skins Colorer Name Role Phone Shara Verdugo MD Primary [...] Active ferrous sulfate 325 mg (65 mg houlton iron) tablet Take 325 mg by mouth daily with breakfast. Active amitriptyline (ELAVIL) 25 MG tablet Take 25 mg by mouth nightly at bedtime. Active clopidogrel (PLAVIX) 75 mg tablet Take 75 mg by mouth daily. Active sennosides (SENNA LAX ORAL) Take 2 tablets by mouth nightly at bedtime. 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 200 strip 11 11/09/20 20 Active furosemide (LASIX) 40 MG tabletIndications :on hold Indications: on hold 11/17/19 21 Active FARXIGA 10 mg tablet TOME QUYEN TABLETA TODOS LOS D 10/01/19 22 Active acetaminophen (TYLENOL) 500 MG tablet 01/08/20 21 Active lactulose bulk (CONSTULOSE) 10 gram/15 mL solution TAKE 15 MLS POR V A ORAL BEDTIME NEEDED FOR CONSTIPATION FOR 30 DAYS 10/26/19 22 Active ELIQUIS 5 mg tablet Take 1 tablet by mouth 2 (two) times a day. 10/18/19 23 Active gabapentin (NEURONTIN) 300 MG capsule TOME QUYEN C PSULA DOS VECES AL D A FOR 30 DAYS 10/11/19 23 Active hydrALAZINE (APRESOLINE) 25 MG tablet TOME QUYEN TABLETA POR V A ORAL EN LA MA SHARA 1 TABLET EN LA NOCHE AND 1 TABLET AL ACOSTARSE 08/30/19 23 Active cholecalciferol (VITAMIN D3) 2,000 unit capsule Take 2,000 Units by mouth daily. 03/13/20 23 Active metoprolol tartrate (LOPRESSOR) 25 MG tablet Take 25 mg by mouth 2 (two) times a day. 04/17/20 23 Active colchicine (COLCRYS) 0.6 mg tablet Take 0.6 mg by mouth 2 (two) times a day. Active amLODIPine (NORVASC) 5 MG tablet Take 5 mg by mouth daily. 02/19/20 24 Active blood-glucose meter,continuous (DEXCOM G7 PATIENT RESOURCE COORDINATOR) MiscIndications:T ype 2 diabetes mellitus with left eye affected by proliferative retinopathy without macular edema, with long-term current use of insulin by Miscellaneous route as needed. 04/19/20 24 Active blood-glucose sensor (DEXCOM G7 SENSOR) DeviIndications:T ype 2 diabetes mellitus with left eye affected by proliferative retinopathy without macular edema, with long-term current use of insulin 1 Application by Miscellaneous route Every 10 Days. 04/19/20 24 Active potassium chloride (K-TAB) 20 mEq TbER ER tablet TOME QUYEN TABLETA POR V A ORAL TODOS LOS D 07/17/19 25 Active nitroglycerin (NITROSTAT) 0.[address] 0.4 mg under the tongue. 02/19/20 24 Active omeprazole (PRILOSEC) 20 MG capsule 1 capsule. 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 9 mL 1 12/04/19 25 Active insulin regular U-500 CONCENTRATE (HUMULIN R) 500 unit/mL SolnIndications:T ype 2 diabetes mellitus with left eye affected by proliferative retinopathy without macular edema, with long-term current use of insulin Use up to 450 units/day 40 mL 1 12/04/19 25 Active Active Problems Problem Noted Date Diagnosed [...] visit and I could not do a [id number] in the office. Average glucose 233 mg/dL [...] she was losing glucose information from the [employer] carrol CGM. The CGM keeps falling off [...] a day and bolus. I did order [employer] carrol CGM hopefully she can get this. [...] also going to be following with the artificial glass eye maker. Assessment & Plan (01/08/2019 12:43 PM EDT): [...] I will leave it up to the artificial glass eye maker. At this point I will change her [...] to use it until she sees a artificial glass eye maker to make changes to her pump. She also needs to talk to the artificial glass eye maker about doing the paperwork for the G5 [...] The patient's daughter informs me that the artificial glass eye maker requires old notes and lab work and I will have this faxed to [facility]. Assessment & Plan (02/21/2018 [...] Eventually I want her to see the artificial glass eye maker I want to get her on the tandem T slim pump. I would like her to monitor 4 times a day which she still not doing. I think CGM will help her in the long run. At this point I do not want to request the [employer] carrol CGM because is not linked to [...] definitely answering less carbohydrates into [employer] pod credit associate. I want her to see the artificial glass eye maker again. If we can change her pump to a T slim pump it would be best because she is using a lot of insulin and tends to run out of pods. I advised her that she must monitor her glucose levels 4 times a day and she needs to schedule an appointment with the artificial glass eye maker so that we can start paperwork on [...] amlodipine, carvedilol and isosorbide mononitrate no changes. Immunizations Immunization Administration Dates Next Due COVID-19 [...] 12:10 PM EST Office Visit [facility] [address] [place] [address] [place] [address] Orlin Shirley DO [address] [place] [phone] [email or web address] Health Maintenance Due Date Last Done Comments DEPRESSION SCREENING 1973 HEPATITIS C SCREENING 08/06/1979 HIV ONE-TIME SCREENING (18-65 YEARS) 08/06/1979 PAP SMEAR 1982 MAMMOGRAM 2001 COLOGUARD 2006 COLONOSCOPY 2006 COLORECTAL CANCER SCREENING 2006 FIT TEST 2006 FOBT 2006 SIGMOIDOSCOPY 2006 VIRTUAL COLONOSCOPY 2006 RSV VACCINE (1 - Risk 50-74 years 1-dose series) 08/06/2011 ZOSTER VACCINES (1 of 2) 08/06/2011 DIABETIC EYE EXAM 01/22/2018 PNEUMOCOCCAL VACCINES (50+ years) (2 of 2 - PCV) 04/04/2020 04/04/2019, 03/04/2016, 11/18/2013 CREATININE LEVEL 11/09/2023 11/08/2022, 02/19/2018 POTASSIUM LEVEL 11/09/2023 11/08/2022, 02/19/2018 URINE MICROALBUMIN/CREATININE RATIO 11/19/2024 11/20/2023, 11/08/2022, 07/24/2020, Additional history exists INFLUENZA VACCINE (#1) 2024 9, 03/08/2018, 03/08/2018, Additional history exists COVID-19 VACCINE ( season) 2024 05/09/2021, 09/16/2020, 08/19/2020 HEMOGLOBIN A1C 03/05/2025 12/03/2024, 07/30, 04/19/2024, Additional history exists BLOOD PRESSURE 06/05/2025 12/03/2024 Adult Td,Tdap Booster 03/04/2026 03/04/2016 SMOKING STATUS SCREENING (Once After 26 Yrs) Completed 08/13/2024 HEPATITIS A VACCINES Aged Out No long er eligible based on patient's age to complete this topic HIB VACCINES Aged Out No longer eligi ble based on patient's age to complete this topic IPV VACCINES Aged Out No longer eligi ble [...] current use of insulin COMPREHENSIVE METABOLIC PANEL (CMP) Routine 11/08/2022 10:01 AM EDT 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, with long-term current use of insulin from Last 3 Months or Most Recently Relevant to Health Maintenance Results * (ABNORMAL) POCT Hemoglobin A1c (12/03/2024 12:18 PM EDT) Hemoglobin A1c 8.3(A) 4.2 - 5.6 % Other 12/03/2024 12:1 8 PM EDT Orlin Shirley DO LAB POCT ENTER/EDIT ORDERABLES F inal Result * (ABNORMAL) Microalbumin/creatinine ratio, random urine (11/20/2023 8:41 AM EDT) URINE MICROALBUMIN 45.0(H) 0 - 2.3 mg/dL [facility] URINE CREATININE 88 mg/dL [facility] MICROALB/CRE RATIO 511.4(H) 0 - 20 mg/g Cre [facility] Urine (Urine) 11/20/2023 8:4 1 AM EDT 11/20/2023 8:44 AM EDT Orlin Shirley DO LAB URINE ORDERABLES Final Resul t [facility] [address] [place] [address] * (ABNORMAL) Comprehensive metabolic panel (11/08/2022 10:01 AM EDT) SODIUM 142 133 - 146 mmol/L [facility] POTASSIUM 4.8 3.3 - 5.1 mmol/L [facility] CHLORIDE 101 96 - 108 mmol/L [facility] CO2 35 21 - 35 mmol/L [facility] BUN 22(H) 6 - 19 mg/dL [facility] CREATININE 1.50 0.5 - 1.5 mg/dL [facility] GLUCOSE 80 70 - 99 mg/dL [facility] ALBUMIN 4.0 3.9 - 4.8 g/dL [facility] TOTAL PROTEIN 8.2(H) 6.5 - 8.0 g/dL [facility] CALCIUM 9.6 8.4 - 10.3 mg/dL [facility] ALKALINE PHOSPHATASE 57 39 - 117 U/L [facility] TOTAL BILIRUBIN 0.3 0.0 - 1.2 mg/dL [facility] AST 26 0 - 37 U/L [facility] ALT 20 0 - 40 U/L [facility] GLOBULIN 4.2 1 - 4.8 g/dL [facility] EGFR 39(L) >59 mL/min/1.7 3m2 [facility] Comment:Estimated glomerular filtration rate calculated using the CKD-EPI refit equation. ANION GAP 11 10 - 20 mmol/L [facility] Blood 11/08/2022 10:0 1 AM EDT 11/08/2022 10:09 AM EDT us Orlin Shirley DO LAB BLOOD BKR ORDERABLES Final R esult [address] [address] from Last 3 Months or Most Recently Relevant to Health Maintenance [place] [address] [place] [address] ACO ACO ACO ACO ACO [place] [address] [place] [address] ACO Care Teams Hides And Skins Colorer Relationship Specialty Start Date End Date Shara Verdugo MD [address] [place] [address] PCP - General Internal Medicine 01/15/18 Additional Source Comments The information contained in this document represents components of the legal health record. It is not the complete legal health record.[facility]
--- OUTSIDE RECORDS SUMMARY | 2025-03-10 12:37 | XMS_ITS | Encounter Summary ---
Author Organization [facility] Address [address] [facility] [address] [place] [address] Phone Care Team Providers Care Hospice Volunteer Name Role Phone Shara Verdugo MD Primary Care Provider [phone] Reason for Visit * Reason Comments Med Refill Encounter Details Date Type Department Care Team (Late st Contact Info) Description 05/26/2024 Refill [facility] [address] [place] [address] Darrell Santa MD [address] [facility] [address] [place] [address] Chronic kidney disease, stage 4 [...] hypertension documented in this encounter Care Teams Hospice Volunteer Relationship Specialty Start Date End Date Shara Verdugo MD [address] [place] [address] PCP - General 05/11/20 documented as of this encounter
--- OUTSIDE RECORDS SUMMARY | 2025-03-10 12:37 | XMS_ITS | Clinical Summary ---
Author Organization [facility] Address [address] [place] [address] Phone Care Team Providers Care Rubber Cutting Machine Tender Name Role Phone Shara Verdugo MD Primary Care Provider [phone] Allergies Active Allergy Reactions Criticality Noted Date [...] Encounters Date Type Department Care Team Description 02/19/2025 Refill [facility] [address] [place] [address] Darrell Santa MD Chronic kidney disease, stage 4 (severe) (HCC); 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); Essential hypertension 01/20/2025 Refill [facility] [address] [place] [address] Darrell Santa MD Chronic kidney disease, stage [...] Visual Foot Exam 06/01/2020 Influenza Vaccine (#1) 2024 9, 03/08/2018, 02/24/2016 Diabetes: Hemoglobin A1C 03/05/2025 025, 04/19/2024, 02/16/2022, Additional history exists Pneumococcal Vaccine: Peds (0 to 5 Years) and At-Risk Patients (6 to 49 Years) Discontinued 04/04/2019, 03/04/2016, 11/18/2013 Hepatitis B Vaccine Aged Out No longe r eligible based on patient's age to complete this topic Insurance Medicaid Medicaid Care Teams Rubber Cutting Machine Tender Relationship Specialty Start Date End Date Shara Verdugo MD [address] [place] [address] PCP - General 05/11/20
== END 2025-03-10 11:06 | disposition home or self-care (01) ==
LOC: HO.HPS 10:39
PROVIDERS: PCP Internal Medicine; Visit Provider Internal Medicine
DX: E66.9 Obesity, unspecified (principal); G47.33 Obstructive sleep apnea (adult) (pediatric); Z99.89 Dependence on other enabling machines and devices; J98.4 Other disorders of lung
CPT/HCPCS: 99213

== ENCOUNTER → 2025-03-10 10:38 | Outpatient (BNVA) | payer OTHER, SELFPAY | PROVIDERS: PCP Internal Medicine; Visit Provider Internal Medicine | DX: G47.33 Obstructive sleep apnea (adult) (pediatric) (principal); E66.9 Obesity, unspecified; Z99.89 Dependence on other enabling machines and devices | CPT/HCPCS: 99212 ==

== ENCOUNTER 2025-04-07 10:39 | Outpatient (REF) | payer OTHER, SELFPAY ==
[2025-04-07 11:58] LABS: Alanine Aminotransferase 19 U/L (0-31); Albumin Level 3.7 g/dL (3.5-5.0); Alkaline Phosphatase 93 U/L (39-117); Anion Gap 15 (12-20); Aspartate Amino Transferase 43 U/L (5-31); Blood Urea Nitrogen 23 mg/dL (9-16); Calcium 10.0 mg/dL (8.4-10.2); Carbon Dioxide 36 mmol/L (22-29); Chloride 95 mmol/L (96-108); Cholesterol 101 mg/dL (<200); Estimated Glomerular Filt Rate 24; HDL Cholesterol 21 mg/dL (>40); Potassium 3.5 mmol/L (3.3-5.1); Sodium 142 mmol/L (135-145); Total Protein 7.3 g/dL (6.5-8.0); Triglycerides 308 mg/dL (<150)
[2025-04-07 12:14] LABS: Appearance Urine Clear; Glucose Urine UA 500 mg/dL (Negative); PH 6.0 (5.0-9.0); Specific Gravity - Urine 1.020 (1.005-1.025); UMIC TRIGGER UA YES
[2025-04-07 13:13] LABS: Microalbum/Creatinine Ratio Ur 573.5 ug/mg cr (<30)
== END 2025-04-07 10:40 | disposition home or self-care (01) ==
LOC: HO.LAB 10:39
PROVIDERS: PCP Internal Medicine; Visit Provider Internal Medicine Hypertension Specialist
DX: I50.32 Chronic diastolic (congestive) heart failure (principal); N18.32 Chronic kidney disease, stage 3b; E78.5 Hyperlipidemia, unspecified; R31.29 Other microscopic hematuria; R80.9 Proteinuria, unspecified
CPT/HCPCS: 36415; 80048; 80053; 80061; 81001; 81003; 82043; 82570

== ENCOUNTER 2025-04-08 10:46 | Outpatient (AMB) | payer OTHER, SELFPAY ==
[2025-04-08 10:45] VITALS: BP 130/50; BMI 41.7
--- NOTE | 2025-04-08 10:45 | HO.NEPHOV_ITS ---
Vital Signs 04/08/25 10:45 Height 5 ft 2 in Weight 228 lb BMI 41.7 BP 130/50 L Blood Pressure Location Lt brachial Position Sitting Intake Visit Reasons: 4mon f/u w/labs Sba Underwriter Required: No Sba Underwriter Services: Sba Underwriter Offered & Declined (Daughter will translate ) Accompanied by: Daughter Allergies lactose Allergy (Intermediate, Verified 04/08/25 10:52) Vomiting amlodipine Allergy (Mild, Verified 04/08/25 10:52) leg edema liraglutide (From VICTOZA) Allergy (Mild, Verified 04/08/25 10:52) VOMITING RUBI Medication List - Last Reconciled 04/08/25 by Petar Stevens MD albuterol sulfate 90 mcg/actuation 2 puffs inhalation Q6H PRN 30 days alprazolam (Xanax) 0.5 mg PO BEDTIME PRN 5 days amitriptyline 25 mg PO BEDTIME 90 days amlodipine 5 mg PO DAILY 90 days apixaban (Eliquis) 5 mg PO BID 90 days ascorbic acid (vitamin C) (Vitamin C With Allie Hips) 500 mg PO DAILY 90 days blood sugar diagnostic As directed cholecalciferol (vitamin D3) 50 mcg PO DAILY 90 days clopidogrel (Plavix) 75 mg PO DAILY commode As directed dapagliflozin propanediol (Farxiga) 10 mg PO DAILY furosemide 40 mg PO BID gabapentin 300 mg PO BID 90 days hydralazine 25 mg PO BID 90 days insulin regular hum U-500 conc 0 - 450 units subcut DAILY PRN metoprolol tartrate 50 mg (2 x 25 mg) PO BID 90 days nitroglycerin mg sublingual pantoprazole 40 mg PO DAILY 90 days [pulse oximeter As directed] rosuvastatin 40 mg PO DAILY 90 days semaglutide (Ozempic) 1 mg subcut QWEEK sennosides (Senna Laxative) 17.2 mg (2 x 8.6 mg) PO BEDTIME PRN 30 days Shower Chair As directed walker with seat and wheels HPI Comments Details: History of Present Illness The patient is a 64 year old female presenting for follow-up for chronic kidney disease management. She has a history of chronic kidney disease secondary to longstanding hypertension, diabetes mellitus, and obesity. Her recent creatinine was 2.05 with an eGFR of 24 mL/min, which is 24% of normal kidney function. For her diabetes, she is on Ozempic but has experienced weight gain instead of weight loss. Her blood sugar is currently around 170-200 mg/dL. She has a follow-up appointment scheduled with her security professionals, Dr. Shirley, to discuss the Ozempic. Her blood pressure is well-controlled on amlodipine and hydralazine. She is also taking Farxiga for renal protection. She reports new onset knee pain, for which she has been taking Advil. [facility] Medical History Congestive heart failure Acute kidney injury superimposed on chronic kidney disease Diabetic foot ulcer Cataract (lens) fragments in eye following cataract surgery, right eye Cataract (lens) fragments in eye following cataract surgery, left eye Acute on chronic renal failure CHF exacerbation Afib Restrictive lung disease CKD (chronic kidney disease) stage 4, GFR 15-29 ml/min Right hemiparesis Cerebrovascular accident (CVA) due to occlusion of left middle cerebral artery Skin lesion Lumbar degenerative disc disease CKD (chronic kidney disease) BRYNN (obstructive sleep apnea) Arthritis Hypercholesteremia CAD (coronary artery disease) Sinusitis Stroke Asthma Hypertension Diabetes Surgical History History of esophagogastroduodenoscopy (EGD) H/O colonoscopy History of bilateral tubal ligation History of heart surgery History of coronary angioplasty with insertion of stent History of cataract surgery H/O right breast biopsy Family History Father Stroke Mother Myocardial infarction Paternal Uncle Cancer Family/Other Breast cancer Social History Household Members: Family Housing: House Are you a primary field care manager to a significant other at home: No Alcohol intake: never Comment: family at bedside Patient Tobacco Use Status: Never used Tobacco e-Cigarette/Vaping Use: Never Used Second Hand Smoke Exposure: No Advance Directives Date on File: 01/25/22 service: No Current occupational status: unemployed and disabled Sexual orientation: Straight/Heterosexual Gender identity: Female Cognitive needs: Yes Hearing needs: No Vision needs: No Female Reproductive History Menstrual Age of Menarche: 14 Physical Exam Exam Exam: Physical Exam General: Awake. Comfortable. HENT: Neck supple. Mucosa moist. Pulmonary: Lungs aeration equal. No rales. Cardiology: Heart S1-S2 heard. No gallop. Abdomen: Soft. Non tender. Bowel sounds normal. Neurologic: No involuntary movements. No myoclonus. Extremities: Swelling noted in the legs. Vital Signs: Last Vital Signs BP 130/50 L 04/08/25 10:45 BMI result Body Mass Index 41.7 Results Reviewed Nephrology Results: Sodium, (135-145) 142 mmol/L 04/07/25 Potassium, (3.3-5.1) 3.5 mmol/L 04/07/25 Chloride, (96-108) 95 mmol/L L 04/07/25 Carbon Dioxide, (22-29) 36 mmol/L H 04/07/25 BUN, (9-16) 23 mg/dL H 04/07/25 Creatinine, (0.5-1.4) 2.05 mg/dL H 04/07/25 Calcium, (8.4-10.2) 10.0 mg/dL Δ 04/07/25 Urine Protein, (Neg-Trace) 300 (3+) mg/dL H 04/07/25 Urine Creatinine 114.37 mg/dL 04/07/25 Renal US 10/15/24 Assessment & Plan Assessment & Plan (1) CKD (chronic kidney disease) stage 4, GFR 15-29 ml/min: Code(s): N18.4 - Chronic kidney disease, stage 4 (severe) Category: Medical (2) Anemia: Code(s): D64.9 - Anemia, unspecified Category: Medical (3) Type 2 diabetes mellitus, with long-term current use of insulin: Code(s): E11.9 - Type 2 diabetes mellitus without complications; Z79.4 - manager intermediate (current) use of insulin Category: Medical Qualifiers: Diabetes mellitus complication status: with hyperglycemia Qualified Code(s): E11.65 - Type 2 diabetes mellitus with hyperglycemia; Z79.4 - manager intermediate (current) use of insulin Plan: . Goal A1c less than 7% She follows with Endocrinology Dr. Shirley (4) Microscopic hematuria: Code(s): R31.29 - Other microscopic hematuria Category: Medical Plan Plan 1. Chronic Kidney Disease - The patient was advised to discontinue Advil for her knee pain due to the risk to her kidneys. - Continue Farxiga for renal protection. - The importance of maintaining control over blood sugar and blood pressure was emphasized. - No changes will be made to her current medication regimen at this time. - Plan is to follow up in 3 months. 2. Knee Pain - The patient was advised to stop taking Advil. - Tylenol 500 mg or 650 mg was recommended as a safer alternative for pain management. 3. Type 2 Diabetes Mellitus - The patient is to follow up with her security professionals, Dr. Shirley, to discuss the lack of weight loss and management with Ozempic. - The importance of blood sugar control was reinforced. 4. Essential Hypertension - Continue current antihypertensive medications, including amlodipine and hydralazine, as blood pressure is well-controlled. 5. Edema - The patient's engraver letter recently increased her diuretic to 40 mg. - Advised to adjust the water pill as needed based on fluid status. - Discussed managing salt intake. Orders: Orders Basic Metabolic Panel 3 Months N18.4 - Chronic kidney disease, stage 4 (severe) Complete Blood Count no Diff Today N18.4 - Chronic kidney disease, stage 4 (severe) Parathyroid Hormone Intact Today N18.4 - Chronic kidney disease, stage 4 (severe) Coding Level of Care Code Est Pt Level 4 (37058) Diagnoses CKD (chronic kidney disease) stage 4, GFR 15-29 ml/min N18.4 Anemia D64.9 Type 2 diabetes mellitus with hyperglycemia, with long-term current use of insulin E11.65; Z79.4 Diabetes mellitus complication status: with hyperglycemia Microscopic hematuria R31.29
== END 2025-04-08 11:10 | disposition home or self-care (01) ==
LOC: HO.HKA 10:47
PROVIDERS: PCP Internal Medicine; Visit Provider Internal Medicine Hypertension Specialist
DX: N18.4 Chronic kidney disease, stage 4 (severe) (principal); D64.9 Anemia, unspecified; E11.65 Type 2 diabetes mellitus with hyperglycemia; Z79.4 Long term (current) use of insulin; R31.29 Other microscopic hematuria
CPT/HCPCS: 99214

== ENCOUNTER → 2025-04-08 10:46 | Outpatient (BNVA) | payer OTHER, SELFPAY | PROVIDERS: PCP Internal Medicine; Visit Provider Internal Medicine Hypertension Specialist | DX: I12.9 Hypertensive chronic kidney disease with stage 1 through stage 4 chronic kidney disease, or unspecified chronic kidney disease (principal); E11.22 Type 2 diabetes mellitus with diabetic chronic kidney disease; N18.4 Chronic kidney disease, stage 4 (severe); E11.65 Type 2 diabetes mellitus with hyperglycemia; D63.1 Anemia in chronic kidney disease; Z79.4 Long term (current) use of insulin; R31.29 Other microscopic hematuria; M25.569 Pain in unspecified knee; R60.9 Edema, unspecified; Z79.899 Other long term (current) drug therapy | CPT/HCPCS: 99212 ==

== ENCOUNTER 2025-04-29 14:36 | Outpatient (AMB) | payer OTHER, SELFPAY ==
--- OUTSIDE RECORDS SUMMARY | 2024-11-13 10:40 | XMS_ITS ---
Author Organization [facility] Address [address] [place] [address] Care Team Providers Care Statement Distribution Clerk Name Role Phone Shara Verdugo Primary Care Provider Unavailab Royce Goldstein Unavailable [phone] José Heath Unavailable Unavailable REASON FOR VISIT Patient presents today for abdominal pain Medications Medication SIG (Take, Route, Frequency, Duration) Notes Start Date End Date Status Atorvastatin Calcium 80mg Active Victoza 18 MG/3ML Solution INJECT 1.2 MG DAILY Subcutaneous; Duration: 30 Active Omeprazole 20 MG Capsule Delayed Release 1 capsule Orally Once a day; Duration: 30 Active metFORMIN HCl ER 1000mg Active Gabapentin 300mg Act federico Aspir-81 81mg Active Nitrostat 0.4mg Acti ve Isosorbide Mononitrate 30mg Active Lisinopril 40mg Acti ve Clopidogrel Bisulfate 75mg Active amLODIPine Besylate 10mg Active Furosemide 40mg Acti ve Acetaminophen 500mg Active prednisoLONE Acetate 1% Active Lantus 100units Acti ve Vitamin C 500mg Acti ve Ferrous Sulfate 325mg Active Cilostazol 50mg Acti ve HumaLOG 100units Act federico Metoprolol Tartrate 50mg Active Amoxicillin-Pot Clavulanate 875-125mg Active traMADol HCl 50mg Ac tive Methocarbamol 500mg Active Atrovent HFA Active Encounters Encounter Location Date Provider Diagnosis [facility] [address] [place] [address] 11/13/2024 Royce Cunningham Plan Of Treatment No Information Progress Notes * RENETTA GODINEZ LDOB:[birth year] (64 yo F)Acc No.[id number]:11/13/2024 Progress Notes Patient: RENETTA VOSS Provider: Stevo Cunningham MD :1960 A ge:64 Y S ex:Female Date:11/13/2024 Address:[address] [place], [place] [id number] Pcp:Shara Grimes Subjective: * Chief Complaints: * P el presents today for abdominal pain * Medications: T akingAmoxicillin-Pot Clavulanate 875-125mg traMADol HCl 50mg Methocarbamol 500mg Atrovent HFA Vitamin C 500mg Ferrous Sulfate 325mg Cilostazol 50mg HumaLOG 100units Metoprolol Tartrate 50mg Lantus 100units amLODIPine Besylate 10mg Furosemide 40mg Acetaminophen 500mg prednisoLONE Acetate 1% Aspir-81 81mg Nitrostat 0.4mg Isosorbide Mononitrate 30mg Lisinopril 40mg Clopidogrel Bisulfate 75mg metFORMIN HCl ER 1000mg Gabapentin 300mg Atorvastatin Calcium 80mg Victoza 18 MG/3ML Solution INJECT 1.2 MG DAILY Subcutaneous Omeprazole 20 MG Capsule Delayed Release 1 capsule Orally Once a day Taking Amoxicillin-Pot Clavulanate 875-125mg Taking traMADol HCl 50mg Taking Methocarbamol 500mg Taking Atrovent HFA Taking Vitamin C 500mg Taking Ferrous Sulfate 325mg Taking Cilostazol 50mg Taking HumaLOG 100units Taking Metoprolol Tartrate 50mg Taking Lantus 100units Taking amLODIPine Besylate 10mg Taking Furosemide 40mg Taking Acetaminophen 500mg Taking prednisoLONE Acetate 1% Taking Aspir-81 81mg Taking Nitrostat 0.4mg Taking Isosorbide Mononitrate 30mg Taking Lisinopril 40mg Taking Clopidogrel Bisulfate 75mg Taking metFORMIN HCl ER 1000mg Taking Gabapentin 300mg Taking Atorvastatin Calcium 80mg Taking Victoza 18 MG/3ML Solution INJECT 1.2 MG DAILY Subcutaneous Taking Omeprazole 20 MG Capsule Delayed Release 1 capsule Orally Once a day Billing Information: * Procedure Codes: * The named appointment provid er may or may not be the originator of this progress note, and it is not deemed complete until electronically signed by the appointment provider. Sign off status: Pending * Provider: Stevo Cunningham MD Date: 0 11/13/2024 Generated for Printi ng/Robinson/Herson on: 1 06:14 PM EST
[2025-04-29 14:53] VITALS: BP 116/64; PULSE 81; O2SAT 90; BMI 39.8
--- NOTE | 2025-04-29 14:53 | MHC.PC.OV ---
Vital Signs 04/29/25 14:53 Height 5 ft 2 in Weight 217 lb 8 oz BMI 39.8 BP 116/64 Blood Pressure Location Lt brachial Position Sitting Pulse 81 Pulse Source Pulse Oximeter Pulse Oximetry (%) 90 L Oxygen Delivery Method Room Air Intake Visit Reasons: dm Home Health Manager Required: No Accompanied by: Self / Same As Patient Allergies lactose Allergy (Intermediate, Verified 04/29/25 15:13) Vomiting amlodipine Allergy (Mild, Verified 04/29/25 15:13) leg edema liraglutide (From VICTOZA) Allergy (Mild, Verified 04/29/25 15:13) VOMITING RUBI Medication List - Last Reconciled 04/29/25 by Shara Grimes MD acetaminophen (Pain Relief (acetaminophen)) 1,000 mg (2 x 500 mg) PO Q6H PRN 30 days albuterol sulfate 90 mcg/actuation 2 puffs inhalation Q6H PRN 30 days alprazolam (Xanax) 0.5 mg PO BEDTIME PRN 5 days amitriptyline 25 mg PO BEDTIME 90 days amlodipine 5 mg PO DAILY 90 days apixaban (Eliquis) 5 mg PO BID 90 days ascorbic acid (vitamin C) (Vitamin C With Allie Hips) 500 mg PO DAILY 90 days blood sugar diagnostic As directed cholecalciferol (vitamin D3) 50 mcg PO DAILY 90 days clopidogrel (Plavix) 75 mg PO DAILY commode As directed dapagliflozin propanediol (Farxiga) 10 mg PO DAILY furosemide 40 mg PO BID gabapentin 300 mg PO BID 90 days hydralazine 25 mg PO BID 90 days insulin regular hum U-500 conc 0 - 450 units subcut DAILY PRN metoprolol tartrate 50 mg (2 x 25 mg) PO BID 90 days nitroglycerin mg sublingual pantoprazole 40 mg PO DAILY 90 days [pulse oximeter As directed] rosuvastatin 40 mg PO DAILY 90 days semaglutide (Ozempic) 1 mg subcut QWEEK sennosides (Senna Laxative) 17.2 mg (2 x 8.6 mg) PO BEDTIME PRN 30 days Shower Chair As directed walker with seat and wheels Tobacco use date assessed: 04/29/25 Dental Screening Dental Screen Date: 04/29/25 Did you have a dental visit in the last 12 months?: No Did you have a dental problem in the last 6 months where you did not have access to dental care?: No Was dental information given to patient?: No HPI HPI Comments History of Present Illness Details This is a 64-year-old female with diabetes mellitus type 2 on long-term current use of insulin, hypertension, congestive heart failure with preserved ejection fraction, paroxysmal atrial fibrillation and chronic kidney disease stage 4 that comes today complaining of left knee pain and left pain in humerus that started few months ago with no previous trauma. She walks with a walker for gait stability. She is on insulin pump and follows with endocrinology. Blood pressure stable. Last echocardiogram was this year showing normal ejection fraction. She denies weight gain, shortness on breath or leg swelling. Seems euvolemic. Follows with cardiology and last office visit was 2 months ago. She also has chronic kidney disease in which GFR has decrease and this is follow by Nephrology. On chronic anticoagulation for atrial fibrillation and denies any active bleeding. [facility] Medical History (Updated 04/29/25 @ 15:25 by Shara Grimes MD) Congestive heart failure Acute kidney injury superimposed on chronic kidney disease Diabetic foot ulcer Cataract (lens) fragments in eye following cataract surgery, right eye Cataract (lens) fragments in eye following cataract surgery, left eye Acute on chronic renal failure CHF exacerbation Afib Restrictive lung disease CKD (chronic kidney disease) stage 4, GFR 15-29 ml/min Right hemiparesis Cerebrovascular accident (CVA) due to occlusion of left middle cerebral artery Skin lesion Lumbar degenerative disc disease CKD (chronic kidney disease) BRYNN (obstructive sleep apnea) Arthritis Hypercholesteremia CAD (coronary artery disease) Sinusitis Stroke Asthma Hypertension Diabetes Surgical History History of esophagogastroduodenoscopy (EGD) H/O colonoscopy History of bilateral tubal ligation History of heart surgery History of coronary angioplasty with insertion of stent History of cataract surgery H/O right breast biopsy Family History Father Stroke Mother Myocardial infarction Paternal Uncle Cancer Family/Other Breast cancer Social History Household Members: Family Housing: House Are you a primary health careers instructor to a significant other at home: No Alcohol intake: never Comment: family at bedside Patient Tobacco Use Status: Never used Tobacco e-Cigarette/Vaping Use: Never Used Second Hand Smoke Exposure: No Advance Directives Date on File: 01/25/22 service: No Current occupational status: unemployed and disabled Sexual orientation: Straight/Heterosexual Gender identity: Female Cognitive needs: Yes Hearing needs: No Vision needs: No Female Reproductive History Menstrual Age of Menarche: 14 Questionnaire PHQ-9 Over the last 2 weeks, how often have you been bothered by any of the following problems? 1. Little interest or pleasure in doing things: several days 2. Feeling down, depressed, or hopeless: not at all 3. Trouble falling or staying asleep, or sleeping too much: several days 4. Feeling tired or having little energy: several days 5. Poor appetite or overeating: more than half the days 6. Feeling bad about yourself - or that you are a failure or have let yourself or your family down: not at all 7. Trouble concentrating on things, such as reading the newspaper or watching television: not at all 8. Moving or speaking so slowly that other people could have noticed. Or the opposite - being so fidgety or restless that you have been moving around a lot more than usual: not at all 9. Thoughts that you would be better off or of hurting yourself in some way: not at all Total score: 5 Depression Screening Interpretation: Positive Depression Screening Follow-up: Existing condition and Follow-up Visit Requested Depression Screening Done: Yes 81661 - PHQ-9 Billing: Yes Source: Developed by Drs. Royce Nielsen, Sarah Dunbar, Farhan Bird and colleagues, with an educational maya from [employer]. Thrive Questionnaire Date Thrive assessed: 04/29/25 I am a: Patient What is your living situation today?: I choose not to answer this question Within the past 12 months, did the food you bought not last and you didn't have the money to get more?: I choose not to answer this question Within the past 12 months, did you worry whether your food would run out before you got money to buy more?: I choose not to answer this question Do you have trouble paying for medicines?: I choose not to answer this question Do you have trouble getting transportation to medical appointments?: I choose not to answer this question Do you have trouble paying your heating and electricity bill?: I choose not to answer this question Do you have trouble taking care of your child, family member or friend?: I choose not to answer this question Do you have trouble with day-to-day activities such as bathing, preparing meals, shopping, managing finances, etc.?: I choose not to answer this question Are you currently unemployed and looking for a job?: I choose not to answer this question Are you interested in more education?: I choose not to answer this question Please select the resources that you would like help with: None Currently or been in a relationship where the following occur: I choose not to answer THRIVE Score: 0 AUDIT C Alcohol Use Questionnaire (AUDIT-C) 1. How often do you have a drink containing alcohol?: Never 3. How often do you have six or more drinks on one occasion?: Never Total Score: 0 Score Reviewed/Action Taken: No SILVANA-7 AMB Questionnaire SILVANA-7 Date SILVANA - 7 assessed: 04/29/25 Feeling nervous, anxious, or on edge: 0 = Not at all Not being able to stop or control worryin = Not at all Worrying too much about different things: 0 = Not at all Trouble relaxin = Not at all Being so restless that it is hard to sit still: 0 = Not at all Becoming easily annoyed or irritable: 0 = Not at all Feeling afraid as if something awful might happen: 0 = Not at all Total SILVANA-7 score (0-4 normal; 5-9 mild; 10-14 moderate; 15-21 severe): 0 Source: Developed by Drs. Royce Nielsen, Sarah Dunbar, Farhan Bird and colleagues, with an educational maya from [employer]. SILVANA-7 Assessment Billing SILVANA-7 Assessment Tool: SILVANA-7 Assessment 35898 Review of Systems Const All systems reviewed & are unremarkable except as noted in HPI and below Card Denies chest pain at rest, Denies chest pain with activity, Denies edema, Denies irregular heart rhythm, Denies claudication, Denies dyspnea, Denies dyspnea on exertion, Denies orthopnea, Denies paroxysmal nocturnal dyspnea and Denies slow heart rate Resp Denies cough, Denies dyspnea and Denies dyspnea on exertion Physical exam (Primary Care) Vital Signs: Last Vital Signs Pulse 81 04/29/25 14:53 BP 116/64 04/29/25 14:53 Pulse Ox 90 L 04/29/25 14:53 Oxygen Delivery Method Room Air 04/29/25 14:53 BMI result Body Mass Index 39.8 BMI Assessment/Plan discussion: High BMI High, discussed plan: lifestyle, weight reduction, dietary and physical activity Tobacco/Smoking Status: Tobacco use Status Tobacco use date assessed 04/29/25 04/29/25 14:57 Patient Tobacco Use Status Never used Tobacco 04/29/25 14:57 e-Cigarette/Vaping Use Never Used 04/29/25 14:57 PHQ-9: PHQ-9 Score PHQ-9: Total score 5 04/29/25 14:57 Depression Screening Interpretation: Positive Depression Screening Follow-up: Existing condition and Follow-up Visit Requested Thrive Assessment: Date of Thrive Assessment Date Thrive assessed 04/29/25 04/29/25 14:57 Currently or been in a relationship where the following occur: I choose not to answer Resp Effort & Inspection: normal respiratory effort Auscultation: clear to auscultation bilaterally Cardio Jugular venous distension: no JVD Rate: regular rate Rhythm: regular rhythm Heart sounds: S1 normal heart sound present and S2 normal heart sound present Coding Level of Care Code Add On Preventative Visit Only Diagnoses Chronic heart failure with preserved ejection fraction (HFpEF) I50.32 Essential hypertension I10 Paroxysmal atrial fibrillation I48.0 Type 2 diabetes mellitus with hyperglycemia, with long-term current use of insulin E11.65; Z79.4 Diabetes mellitus complication status: with hyperglycemia Pain of left humerus M89.8X2 Left knee pain M25.562 Additional Codes SILVANA-7 Assessment Billing - SILVANA-7 Assessment Tool: SILVANA-7 Assessment 56988 ([id number]) PHQ-9 - 72150 - PHQ-9 Billing: Yes ([id number]) Time Spent (min) 24 Assessment & Plan Assessment & Plan (1) Chronic heart failure with preserved ejection fraction (HFpEF): Code(s): I50.32 - Chronic diastolic (congestive) heart failure Category: Medical (2) Essential hypertension: Code(s): I10 - Essential (primary) hypertension Category: Medical (3) Paroxysmal atrial fibrillation: Code(s): I48.0 - Paroxysmal atrial fibrillation Category: Medical (4) Type 2 diabetes mellitus, with long-term current use of insulin: Code(s): E11.9 - Type 2 diabetes mellitus without complications; Z79.4 - terminal block assembler (current) use of insulin Category: Medical Qualifiers: Diabetes mellitus complication status: with hyperglycemia Qualified Code(s): E11.65 - Type 2 diabetes mellitus with hyperglycemia; Z79.4 - terminal block assembler (current) use of insulin (5) Pain of left humerus: Code(s): M89.8X2 - Other specified disorders of bone, upper arm Category: Medical (6) Left knee pain: Code(s): M25.562 - Pain in left knee Category: Medical Plan Continue same meds. X-ray ordered. Orders: Orders AMB Hemoglobin A1c Today Z13.9 - Encounter for screening, unspecified XR humerus LT Today M89.8X2 - Other specified disorders of bone, upper arm Microalbumin, Random (w Creat) 4 Months R80.9 - Proteinuria, unspecified Vitamin B12 and Folate 4 Months E53.8 - Deficiency of other specified B group vitamins Vitamin D 25-OH Total 4 Months E55.9 - Vitamin D deficiency, unspecified Comprehensive Reserve. Panel Fast 4 Months N18.32 - Chronic kidney disease, stage 3b FISH NTRK 1,2,3 4 Months I50.32 - Chronic diastolic (congestive) heart failure XR knee LT 2V Today M25.562 - Pain in left knee Complete Blood Count Auto Diff 4 Months D64.9 - Anemia, unspecified Lipid Panel 4 Months E78.5 - Hyperlipidemia, unspecified IRON PROFILE 4 Months D64.9 - Anemia, unspecified
--- OUTSIDE RECORDS SUMMARY | 2025-04-29 18:14 | XMS_ITS | Encounter Summary ---
Author Organization [facility] Address [address] [facility] [address] [place] [address] Phone Care Team Providers Care Sonographer Name Role Phone Shara Verdugo MD Primary Care Provider [phone] Reason for Visit * Reason Comments Med Refill Encounter Details Date Type Department Care Team (Late st Contact Info) Description 10/03/2023 [facility]ill [facility] [address] [place] [address] Darrell Santa MD [address] [facility] [address] [place] [address] Social History Tobacco Use Types [...] on filedocumented in this encounter Care Teams Sonographer Relationship Specialty Start Date End Date Shara Verdugo MD [address] [place], [place] PCP - General 05/11/20 documented as of this encounter
--- OUTSIDE RECORDS SUMMARY | 2025-04-29 18:14 | XMS_ITS | Encounter Summary ---
Author Organization [facility] Address [address] [facility] [facility] [address] [place] [address] Phone Care Team Providers Care Ornamental Rail Installer Name Role Phone Shara Verdugo MD Primary Care Provider [phone] Reason for Visit * Reason Comments Med Refill Encounter Details Date Type Department Care Team (Late st Contact Info) Description 05/26/2024 Refill [facility] [address] [facility] [place] [address] Darrell Santa MD [address] [facility] [address] [place] [address] Chronic kidney disease, stage 4 [...] hypertension documented in this encounter Care Teams Ornamental Rail Installer Relationship Specialty Start Date End Date Shara Verdugo MD [address] [place] [address] PCP - General 05/11/20 documented as of this encounter
--- OUTSIDE RECORDS SUMMARY | 2025-04-29 18:14 | XMS_ITS | Encounter Summary ---
Author Organization [facility] Address [address] [facility] [address] 7[address] [place] [address] Care Team Providers Care Life Science Taxonomist Name Role Phone Unavailable Primary Care Provider [...]
--- OUTSIDE RECORDS SUMMARY | 2025-04-29 18:14 | XMS_ITS | Clinical Summary ---
Author Organization [employer] Address [address] [facility] 7t [place] [address] Care Team Providers Care Complex Care Nurse Practitioner Name Role Phone Unavailable Primary Care Provider [...] of 2) 08/06/2011 COVID-19 Vaccine ( - 2024-2 6 season) 2024 Influenza Vaccine (#1) 2024 RSV [...]
--- OUTSIDE RECORDS SUMMARY | 2025-04-29 18:14 | XMS_ITS | Clinical Summary ---
Author Organization [facility] Address [address] [place] [address] Phone Care Team Providers Care Survey Manager Name Role Phone Shara Verdugo MD Primary Care Provider [phone] Allergies Active Allergy Reactions Criticality Noted Date [...] [facility] [address] [place] [address] Darrell Santa MD Chronic kidney disease, stage [...] this topic Insurance Medicaid Medicaid Care Teams Survey Manager Relationship Specialty Start Date End Date Shara Verdugo MD [address] [place], [place] PCP - General 05/11/20
--- OUTSIDE RECORDS SUMMARY | 2025-04-29 18:14 | XMS_ITS | Encounter Summary ---
Author Organization [facility] Address [address] [facility] [address] [facility] [address] [place] [address] Phone Care Team Providers Care Canal Tender Name Role Phone Shara Verdugo MD Primary Care Provider [phone] Reason for Visit * Reason Comments Med Refill Encounter Details Date Type Department Care Team (Late st Contact Info) Description 10/16/2023 Refill [facility] [address] [place] [address] Darrell Santa MD [address] [facility] [address] [place] [address] Chronic kidney disease, stage 4 [...] hypertension documented in this encounter Care Teams Canal Tender Relationship Specialty Start Date End Date Shara Verdugo MD [address] [place] [address] PCP - General 05/11/20 documented as of this encounter
--- OUTSIDE RECORDS SUMMARY | 2025-04-29 18:14 | XMS_ITS | Patient Health Record ---
Author Organization [facility] Address [address] [place] [address] Care Team Providers Care Precipitator Name Role Phone Shara Verdugo Primary Care Provider Unavailab Royce Goldstein Unavailable [phone] José Heath Unavailable Unavailable Reason For Referral No Information Medications Medication SIG (Take, Route, Frequency, Duration) Notes Start Date End Date Status amLODIPine Besylate 10mg Active Atorvastatin Calcium 80mg Active Amoxicillin-Pot Clavulanate 875-125mg Active Furosemide 40mg Acti ve Victoza 18 MG/3ML Solution INJECT 1.2 MG DAILY Subcutaneous; Duration: 30 Active traMADol HCl 50mg Ac tive Acetaminophen 500mg Active Omeprazole 20 MG Capsule Delayed Release 1 capsule Orally Once a day; Duration: 30 Active Methocarbamol 500mg Active prednisoLONE Acetate 1% Active Atrovent HFA Active Aspir-81 81mg Active Vitamin C 500mg Acti ve Nitrostat 0.4mg Acti ve Ferrous Sulfate 325mg Active Isosorbide Mononitrate 30mg Active Cilostazol 50mg Acti ve Lisinopril 40mg Acti ve HumaLOG 100units Act federico Clopidogrel Bisulfate 75mg Active Metoprolol Tartrate 50mg Active metFORMIN HCl ER 1000mg Active Lantus 100units Acti ve Gabapentin 300mg Act federico Social History Social History Additional Details Category Social Info Options Details Miscellaneous: Marital status: Occupation: disabled Section Notes: Nonsmoker; no alcohol Nonsmoker; no alcohol Problems Problem Type SNOMED Code ICD Code Onset Dates Problem Status W/U Status Risk Notes Problem Gastroesophageal reflux disease (665689918) GERD (gastroesophag eal reflux disease) (530.81) Active confirmed Problem Iron deficiency anemia (37625664) Anemia, iron deficiency (280.9) Active confirmed Problem History of adenomatous polyp of colon (029397371) History of adenomatous polyp of colon (V12.72) Active confirmed Encounters Encounter Location Date Provider Diagnosis [facility] [address] [place] [address] 11/13/2024 Royce Cunningham Plan Of Treatment Future Test Test Name Order Date UPPER GI ENDOSCOPY 04/25/2013 COLONOSCOPY 04/25/2013 Insurance Providers Payer Name Payer Address Payer Phone Subscriber Number Group Number Insured Name Patient Relationship to Insured Coverage Start Date Coverage End Date Time To Cater [facility] [address] [address] [place], [place] [id number] RENETTA GODINEZ Self - patient is the insured 7 MEDICAID OF [employer] [address] [place] [address] [id number] RENETTA GODINEZ Self - patient is the insured 7 Medical (General) History Medical History History ICD Code 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
--- OUTSIDE RECORDS SUMMARY | 2025-04-29 18:14 | XMS_ITS | Encounter Summary ---
Author Organization [facility] Address [address] [facility] [address] [place] [address] Phone Care Team Providers Care Telegraph Service Clerk Name Role Phone Shara Verdugo MD Primary Care Provid er Reason for Visit * Reason Comments Medication Refill Encounter Details Date Type Department Care Team (Late st Contact Info) Description 03/18/2025 Refill [facility] [address] [place] [address] Orlin Shirley DO [address] [place] [address] [email or web address] Medication Refill Social History Tobacco Use Types Packs/Day Years [...] on file documented as of this encounter Progress Notes * Danica Thomas MA - 03/18/2025 1:40 PM EST Sent pens yesterday documented in this encounter Plan of Treatment Upcoming Encounters Date Type Department Care Team (Late st Contact Info) Description 07/15/2025 1:40 PM EDT Office Visit [facility] [address] [place] [address] Orlin Shirley DO [address] [place] [address] [email or web address] documented as of this encounter Visit Diagnoses Diagnosis 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 It is not the complete legal health record.[facility]
--- OUTSIDE RECORDS SUMMARY | 2025-04-29 18:14 | XMS_ITS | Encounter Summary ---
Author Organization [facility] Address [address] [facility] [address] [place] [address] Phone Care Team Providers Care Primary Special Educator Name Role Phone Shara Verdugo MD Primary Care Provider [phone] Encounter Details Date Type Department Care Team (Late st Contact Info) Description 03/14/2022 Telephone [facility] [address] [facility] [address] [place] [address] Shara Verdugo MD [address] [place] [address] Social History Tobacco Use Types Packs/Day Years [...] faxed over once complete. Please send to [facility] [place] [facility] . Thank you documented in this encounter Plan of Treatment Not on file documented as of this encounter Visit Diagnoses Not on filedocumented in this encounter Care Teams Primary Special Educator Relationship Specialty Start Date End Date Shara Verdugo MD [address] [place] [address] PCP - General 05/11/20 documented as of this encounter
--- OUTSIDE RECORDS SUMMARY | 2025-04-29 18:15 | XMS_ITS | Encounter Summary ---
Author Organization [facility] Address [address] [facility] [address] [place] [address] Phone Care Team Providers Care Formulator Name Role Phone Shara Verdugo MD Primary Care Provider [phone] Reason for Visit * Reason Comments Med Refill Encounter Details Date Type Department Care Team (Late st Contact Info) Description 08/07/2024 Refill [facility] [address] [facility] [address] [address] [place] [address] Darrell Santa MD [address] [facility] [address] [place] [address] Chronic kidney disease, stage 4 [...] hypertension documented in this encounter Care Teams Formulator Relationship Specialty Start Date End Date Shara Verdugo MD [address] [place] [address] PCP - General 05/11/20 documented as of this encounter
--- OUTSIDE RECORDS SUMMARY | 2025-04-29 18:15 | XMS_ITS | Encounter Summary ---
Author Organization [facility] Address [address] [facility] [address] [place] [address] Phone Care Team Providers Care Health Records Technology Teacher Name Role Phone Shara Verdugo MD Primary Care Provider [phone] Reason for Visit * Reason Comments Med Refill Encounter Details Date Type Department Care Team (Late st Contact Info) Description 07/15/2024 Refill [facility] [address] [place] [address] Darrell Santa MD [address] [facility] [address] [place] [address] Chronic kidney disease, stage 4 [...] hypertension documented in this encounter Care Teams Health Records Technology Teacher Relationship Specialty Start Date End Date Shara Verdugo MD [address] [place] [address] PCP - General 05/11/20 documented as of this encounter
--- OUTSIDE RECORDS SUMMARY | 2025-04-29 18:15 | XMS_ITS | Clinical Summary ---
Author Organization [facility] Address [address] [facility] [address] [place] [phone] Phone Care Team Providers Care Tomato Paste Maker Name Role Phone Fouzia Verdugo MD Primary [...] Active ferrous sulfate 325 mg (65 mg point lay ira iron) tablet Take 325 mg by mouth [...] mouth daily. Active blood-glucose meter,continuous (DEXCOM G7 KNIT GOODS MENDER) MiscIndications: Type 2 diabetes mellitus with left [...] 90 tablet 3 025 Active semaglutide (OZEMPIC) 2 mg/dose (8 mg/3 mL) subcutaneous injection penIndications:T ype 2 diabetes mellitus with left eye affected by proliferative retinopathy without macular edema, with long-term current use of insulin Inject 2 mg under the skin every 7 days. 9 mL 1 025 Active insulin regular U-500 CONC (HUMULIN R) 500 unit/mL (3 mL) subcutaneous injection penIndications:T ype 2 diabetes mellitus with left eye affected by proliferative retinopathy without macular edema, with long-term current use of insulin He used up to 450 units daily the insulin pump. 81 mL 1 025 Active semaglutide (OZEMPIC) 1 mg/dose (4 mg/3 mL) subcutaneous injection penIndications:T ype 2 diabetes mellitus with left eye affected by proliferative retinopathy without macular edema, with long-term current use of insulin Inject 1 mg under the skin every 7 days. 9 mL 1 025 2024 Discontinued insulin regular U-500 CONC (HUMULIN R) 500 unit/mL (3 mL) subcutaneous injection penIndications:T ype 2 diabetes mellitus with left eye affected by proliferative retinopathy without macular edema, with long-term current use of insulin He used up to 450 units daily the insulin pump. 81 mL 1 025 2024 Discontinued(R eoraza) Active Problems Problem Noted Date Diagnosed Date Type 2 diabetes mellitus wit h left eye affected by proliferative retinopathy without macular edema, with long-term current use of insulin 01/22/2018 Assessment & Plan (04/18/2025 12:09 PM EST): Improved glycemic control hemoglobin A1c down to 7.8% but she still having elevated glucose during the day and she has been bolusing with insulin. The CGM is still showing that she is not in target. 50% of the glucose are in target she is not having a lot of lows only 1.8% but she is still having a lot of highs. At least this is not during the night. So if she were to get more bolus that we will probably work well. But she is tolerating Ozempic and I think we can go up to 2 mg so I am not going to make any changes to the insulin therapy. She will return for follow-up in 3 months Assessment & Plan (12/03/2024 12:24 PM EDT): [...] visit and I could not do a [id number]-[id number] in the office. Average glucose 233 mg/dL [...] she was losing glucose information from the [employer] carrol CGM. The CGM keeps falling off [...] also going to be following with the breastfeeding educator. Assessment & Plan (01/08/2019 12:43 PM [...] I will leave it up to the breastfeeding educator. At this point I will change [...] to use it until she sees a breastfeeding educator to make changes to her pump. She also needs to talk to the breastfeeding educator about doing the paperwork for the [...] The patient's daughter informs me that the breastfeeding educator requires old notes and lab work and I will have this faxed to [facility]. Assessment & Plan (02/21/2018 [...] Eventually I want her to see the breastfeeding educator I want to get her on the tandem T slim pump. I would like her to monitor 4 times a day which she still not doing. I think CGM will help her in the long run. At this point I do not want to request the Pulle CGM because is not linked to the [...] definitely answering less carbohydrates into Omni pod receiver dispatcher. I want her to see the breastfeeding educator again. If we can change her pump to a T slim pump it would be best because she is using a lot of insulin and tends to run out of pods. 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, with long-term current use of insulin (Primary Dx); Hyperlipidemia LDL goal <70 03/19/2025 Telephone [facility] [address] [place] [address] Danica Thomas MA 03/18/2025 Refill [facility] [address] [place] [address] Orlin Shirley DO Medication Refill 03/17/2025 Orders Only [facility] [address] [place] [address] Orlin Shirley DO 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, with long-term current use of insulin (Primary Dx) 03/16/2025 Refill [facility] [address] [place] [address] Orlin Shirley DO Med Change Request from Last 3 Months Immunizations Immunization Administration [...] Sign Reading Time Taken Comments Blood Pressure 122/70 04/18/2025 11:37 AM EST Pulse 80 04/18/2025 11:37 AM EST Temperature 36.3 C (97.4 F) 12/03/2024 11:53 AM EDT Respiratory Rate - - Oxygen Saturation 98% 12/03/2024 11: 53 AM EDT Inhaled Oxygen Concentration - - Weight 100.5 kg (221 lb 9.6 oz) 025 11:37 AM EST Height 158 cm (5' 2.21 ) 04/18/2025 11: 37 AM EST Body Mass Index 40.26 04/18/2025 11:37 AM EST Plan of Treatment Upcoming Encounters Date Type Department Care Team (Late st Contact Info) Description 07/15/2025 1:40 PM EDT Office Visit [facility] [address] [place] [address] [place] [address] Orlin Shirley DO [address] [place] [address] Health Maintenance Due Date Last Done Comments [...] 03/08/2018, 03/08/2018, Additional history exists COVID-19 VACCINE (2024- season) 2024 05/09/2021, 09/16/2020, 08/19/2020 BLOOD PRESSURE 10/17/2025 04/18/2025 HEMOGLOBIN A1C 10/17/2025 04/18/2025, 08/0 08/2024, 08/13/2024, Additional history exists Adult Td,Tdap Booster 03/04/2026 03/04/2016 SMOKING STATUS [...] Associated Diagnosis Comments POCT HEMOGLOBIN A1C Routine 04/18/2025 1 2:06 PM EST 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, with long-term current use of insulin Hyperlipidemia LDL goal <70 MICROALBUMIN/CREATINI NE RATIO, RANDOM URINE Routine 11/20/2023 [...] Maintenance Results * (ABNORMAL) POCT Hemoglobin A1c (Enter/Edit) (04/18/2025 12:06 PM EST) Hemoglobin A1c 7.8(A) 4.2 - 5.6 % 04/18/2025 12:0 6 PM EST us Orlin Shirley DO LAB POCT ENTER/EDIT ORDERABLES F inal Result * (ABNORMAL) Microalbumin/creatinine ratio, random urine (11/20/2023 8:41 AM EDT) URINE MICROALBUMIN 45.0(H) 0 - 2.3 mg/dL [facility] URINE CREATININE 88 mg/dL [facility] MICROALB/CRE RATIO 511.4(H) 0 - 20 mg/g Cre [facility] Urine (Urine) 11/20/2023 8:4 1 AM EDT 11/20/2023 8:44 AM EDT us Orlin Shirley DO LAB URINE ORDERABLES Final Resul t Performing Organization Address City/State/[facility] Co de Phone Number [facility] [address] [place] [address] * (ABNORMAL) Comprehensive metabolic panel (11/08/2022 10:01 AM EDT) SODIUM 142 133 - 146 mmol/L [facility] POTASSIUM 4.8 3.3 - 5.1 mmol/L [facility] CHLORIDE 101 96 - 108 mmol/L [facility] CO2 35 21 - 35 mmol/L [facility] BUN 22(H) 6 - 19 mg/dL [facility] CREATININE 1.50 0.5 - 1.5 mg/dL [facility] GLUCOSE 80 70 - 99 mg/dL [facility] ALBUMIN 4.0 3.9 - 4.8 g/dL [facility] TOTAL PROTEIN 8.2(H) 6.5 - 8.0 g/dL [facility] CALCIUM 9.6 8.4 - 10.3 mg/dL [facility] ALKALINE PHOSPHATASE 57 39 - 117 U/L [facility] TOTAL BILIRUBIN 0.3 0.0 - 1.2 mg/dL [facility] AST 26 0 - 37 U/L [facility] ALT 20 0 - 40 U/L [facility] GLOBULIN 4.2 1 - 4.8 g/dL [facility] EGFR 39(L) >59 mL/min/1.7 3m2 [facility] Comment:Estimated glomerular filtration rate calculated using the CKD-EPI refit equation. ANION GAP 11 10 - 20 mmol/L [facility] Blood 11/08/2022 10:0 1 AM EDT 11/08/2022 10:09 AM EDT us Orlin Shirley DO LAB BLOOD BKR ORDERABLES Final R esult [facility] [address] [place] [address] from Last 3 Months or Most Recently Relevant to Health Maintenance Insurance ACO ACO ACO ACO ACO ACO ACO ACO ACO Care Teams Tomato Paste Maker Relationship Specialty Start Date End Date Fouzia Verdugo MD [address] [place] [phone] PCP - General Internal Medicine 01/15/18 Additional Source Comments The information contained in this document represents components of the legal health record. It is not the complete legal health record.[facility]
== END 2025-04-29 15:25 | disposition home or self-care (01) ==
LOC: HO.HMCH 14:36
PROVIDERS: PCP Internal Medicine; Visit Provider Internal Medicine
DX: I50.32 Chronic diastolic (congestive) heart failure (principal); I10 Essential (primary) hypertension; I48.0 Paroxysmal atrial fibrillation; E11.65 Type 2 diabetes mellitus with hyperglycemia; Z79.4 Long term (current) use of insulin; M89.8X2 Other specified disorders of bone, upper arm; M25.562 Pain in left knee

== ENCOUNTER → 2025-04-29 14:36 | Outpatient (BNVA) | payer OTHER, SELFPAY | PROVIDERS: PCP Internal Medicine; Visit Provider Internal Medicine | DX: I50.32 Chronic diastolic (congestive) heart failure (principal); I10 Essential (primary) hypertension; I48.0 Paroxysmal atrial fibrillation; E11.65 Type 2 diabetes mellitus with hyperglycemia; Z79.4 Long term (current) use of insulin; M89.8X2 Other specified disorders of bone, upper arm; M25.562 Pain in left knee; Z13.31 Encounter for screening for depression; Z13.39 Encounter for screening examination for other mental health and behavioral disorders | CPT/HCPCS: 96127; 99212 ==